=== PATIENT | female | born 1985 | race Caucasian/White ===

== ENCOUNTER 2016-09-03 01:15 | Emergency (ER) | payer MEDICAID ==
[2016-09-03] MEDS ORDERED: KETOROLAC 60 MG/2 ML VIAL IVP STA (04:10)
[2016-09-03] MEDS ORDERED: ONDANSETRON 4 MG/2 ML VIAL IVP STA (04:10)
[2016-09-03] MEDS ORDERED: SODIUM CHLORIDE 0.9% 500 ML IV STA (04:10)
[2016-09-03] MEDS ORDERED: HYDROmorphone 1 MG/ML SYRINGE IVP STA ×2 (04:10→04:51)
[2016-09-03] MEDS ORDERED: HYDROmorphone 1 MG/ML SYRINGE ONE ×2 (04:17→04:52)
[2016-09-03] MEDS ORDERED: KETOROLAC 30 MG/ML VIAL ONE (04:17)
[2016-09-03] MEDS ORDERED: ONDANSETRON 4 MG/2 ML VIAL ONE (04:18)
[2016-09-03] MEDS ORDERED: SODIUM CHLORIDE 0.9% 1,000 ML IV ONE (04:18)
== END 2016-09-03 06:25 | disposition home or self-care (01) ==
DX: R51 Headache (principal); Z87.891 Personal history of nicotine dependence
CPT/HCPCS: 36415; 80048; 85025; 96361; 96374; 96375; 99284; 99285; J1170

== ENCOUNTER 2016-09-06 20:58 | Emergency (ER) | payer MEDICAID ==
[2016-09-06] MEDS ORDERED: HYDROmorphone 1 MG/ML SYRINGE IVP STA ×3 (21:55→23:09)
[2016-09-06] MEDS ORDERED: ONDANSETRON 4 MG/2 ML VIAL IVP STA ×2 (21:55→23:09)
[2016-09-06] MEDS ORDERED: SODIUM CHLORIDE 0.9% 1,000 ML IV ONE ×3 (21:56→23:14)
[2016-09-06] MEDS ORDERED: KETOROLAC 30 MG/ML VIAL IVP STA (21:56)
[2016-09-06] MEDS ORDERED: LORazepam 2 MG/ML SYRINGE IVP STA ×2 (21:56→23:09)
[2016-09-06] MEDS ORDERED: HYDROmorphone 1 MG/ML SYRINGE ONE ×2 (22:09→23:13)
[2016-09-06] MEDS ORDERED: KETOROLAC 30 MG/ML VIAL ONE (22:09)
[2016-09-06] MEDS ORDERED: ONDANSETRON 4 MG/2 ML VIAL ONE ×3 (22:10→23:14)
[2016-09-06] MEDS ORDERED: LORazepam 2 MG/ML SYRINGE ONE ×2 (22:10→23:14)
== END 2016-09-07 01:05 | disposition home or self-care (01) ==
DX: G43.901 Migraine, unspecified, not intractable, with status migrainosus (principal); Z87.891 Personal history of nicotine dependence
CPT/HCPCS: 96361; 96374; 96375; 96376; 99284; J1170; J2060

== ENCOUNTER 2016-10-20 10:42 | Outpatient (CLI) | payer MEDICAID | END 2016-10-20 10:43 | disposition home or self-care (01) | DX: K86.1 Other chronic pancreatitis (principal); R35.0 Frequency of micturition ==

== ENCOUNTER 2016-11-13 21:10 | Emergency (ER) | payer MEDICAID ==
[2016-11-13] MEDS ORDERED: ONDANSETRON 4 MG/2 ML VIAL IVP STA (23:36)
[2016-11-13] MEDS ORDERED: HYDROmorphone 1 MG/ML SYRINGE IVP STA (23:36)
[2016-11-13] MEDS ORDERED: KETOROLAC 60 MG/2 ML VIAL IVP STA (23:36)
[2016-11-13] MEDS ORDERED: SODIUM CHLORIDE 0.9% 500 ML IV STA (23:36)
[2016-11-13] MEDS ORDERED: KETOROLAC 30 MG/ML VIAL ONE (23:57)
[2016-11-13] MEDS ORDERED: ONDANSETRON 4 MG/2 ML VIAL ONE (23:57)
[2016-11-13] MEDS ORDERED: HYDROmorphone 1 MG/ML SYRINGE ONE (23:57)
== END 2016-11-14 02:38 | disposition home or self-care (01) ==
DX: R51 Headache (principal); Z87.891 Personal history of nicotine dependence
CPT/HCPCS: 96361; 96374; 96375; 99284; J1170

== ENCOUNTER 2017-03-11 22:47 | Emergency (ER) | payer MEDICAID ==
--- NOTE | 2017-03-12 00:18 | ED Physician Documentation ---
PD HPI HEADACHE - Stated complaint Stated Complaint: MADSEN - Chief complaint Chief Complaint: Neuro - History obtained from History obtained from: Patient - History of Present Illness Timing - onset: Today (tonight) Timing - details: Gradual onset Pain level now: 10 Worst headache ever?: No: Worst headache ever? Location: Global Quality: Throbbing Associated symptoms: Nausea, Vomiting. No: Fever, Stiff neck, Weakness, Numbness Improved by: Dark room Worsened by: Light Similar symptoms before: Diagnosis (migraine MADSEN) - Additional information Additional information: c/o headache c/w previous migraine headaches, onset this evening. Patient has care plan with suggested medications and IV fluids Review of Systems Constitutional: denies: Fever, Chills, Sweats Eyes: reports: Photophobia Cardiac: reports: Reviewed and negative Respiratory: reports: Reviewed and negative GI: reports: Nausea, Vomiting. denies: Abdominal Pain Neurologic: reports: Headache. 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 : None HEENT: None Psych: Depression, Anxiety Musculoskeletal: Osteoarthritis, Fibromyalgia Derm: None - Past Surgical History Past Surgical History: Yes General: Appendectomy /HOTEL CONTROLLER: Other HEENT: Tonsil/Adenoidectomy - Present Medications Home Medications: Ambulatory Orders Medication Instructions Recorded Confirmed Ondansetron Odt [Zofran] 4 mg TL Q6H PRN #10 tablet 11/11/15 04/18/16 Bromelain 02/09/16 Cholecalciferol [Vitamin D3] 5,000 unit PO DAILY 02/09/16 02/09/16 Magnesium Citrate 296 ml PO 02/09/16 Morphine Sulfate 15 mg PO Q4HR PRN 02/09/16 04/18/16 Pregabalin [Lyrica] 100 mg PO 02/09/16 Quercetin 02/09/16 Senna Faxon Extract [Senna] 176 mg PO 02/09/16 Epinephrine [Epipen 2-Olayinka] 0.3 mg IJ ONCE #2 units 04/18/16 Dextroamphetamine/Amphetamine 10 mg PO DAILY 07/31/16 07/31/16 [Adderall 10 mg Tablet] Fluticasone [Flonase] 1 sprays REYNALDO BID PRN #1 bottle 07/31/16 Temazepam [Restoril] 1 tab PO DAILY 07/31/16 07/31/16 oxyCODONE [Roxicodone] 1 tab PO .FREQ 07/31/16 07/31/16 - Allergies Allergies/Adverse Reactions: Allergies Allergy/AdvReac Type Severity Reaction Status Date / Time dihydroergotamine Allergy Severe Respiratory Verified 09/03/16 01:29 divalproex sodium Allergy Severe anaphylaxis Verified 09/03/16 01:29 [From Depakote] frovatriptan [Frovatriptan] Allergy Severe anaphylaxis Verified 09/03/16 01:29 metoclopramide HCl * Allergy Severe HTN Verified 09/03/16 01:29 [From Reglan] naratriptan HCl * Allergy Severe anaphylaxis Verified 09/03/16 01:29 [From Amerge] prochlorperazine edisylate * Allergy Severe HTN Verified 09/03/16 01:29 [From Compazine] prochlorperazine maleate * Allergy Severe HTN Verified 09/03/16 01:29 [From Compazine] promethazine HCl * Allergy Severe HTN Verified 09/03/16 01:29 [From Phenergan] rizatriptan benzoate * Allergy Severe anaphylaxis Verified 09/03/16 01:29 [From Maxalt] sumatriptan [From Imitrex] Allergy Severe anaphylaxis Verified 09/03/16 01:29 sumatriptan succinate * Allergy Severe anaphylaxis Verified 09/03/16 01:29 [From Imitrex] vancomycin Allergy Severe nicolette Verified 09/03/16 01:29 syndrome doxycycline Allergy Unknown Unknown Verified 09/03/16 01:29 Antihistamines - Alkylamine AdvReac Severe severe Verified 09/03/16 01:29 anxiety, wheezing, dizziness prednisone AdvReac Severe Hallucinati Verified 09/03/16 01:29 ons diphenhydramine HCl * AdvReac Unknown Unknown Verified 09/03/16 01:29 [From Benadryl] ketorolac AdvReac Unknown Verified 09/03/16 01:29 pentosan polysulfate sodium AdvReac Unknown Verified 09/03/16 01:29 [From Elmiron] - Social History Does the pt smoke?: Yes Smoking Status: Former smoker Does the pt drink ETOH?: No Does the pt have substance abuse?: No - Immunizations Immunizations are current?: Yes - POLST Patient has POLST: No PD ED PE NORMAL - Vitals Vital signs reviewed: Yes - General General: Alert and oriented X 3, Well developed/nourished, Other (appears uncomfortable) - Neck Neck: Supple, no meningeal sign - Cardiac Cardiac: RRR, No murmur - Respiratory Respiratory: No respiratory distress, Clear bilaterally - Abdomen Abdomen: Soft, Non tender - Derm Derm: Normal color, Warm and dry - Neuro Neuro: Alert and oriented X 3, 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 laboratory 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, No motor deficit, No sensory deficit, Normal speech Results - Vitals Vitals: Vital Signs - 24 hr 03/11/17 03/12/17 03/12/17 22:51 00:39 01:51 Temperature 36.2 C L 36.7 C Heart Rate 114 H 74 76 Respiratory 18 20 20 Rate Blood Pressure 122/82 H 105/64 111/68 O2 Saturation 98 100 100 03/12/17 02:03 Temperature Heart Rate 82 Respiratory 18 Rate Blood Pressure 111/68 O2 Saturation 100 Oxygen O2 Source Room air PD MEDICAL DECISION MAKING - ED course Complexity details: reviewed old records, reviewed results, re-evaluated patient , considered differential, d/w patient ED course: I followed the care plan (patient has a copy that she provided to me), IV fluids , zofran, dilaudid, toradol, oxygen. She was given 1mg IV dilaudid and then a second dose. Patient appeared comfortable on reevaluation and she is comfortable with d/c home. Departure - Departure Disposition: 01 Home, Self Care Clinical Impression: Migraine Condition: Good Instructions: ED Headache Migraine Follow-Up: Kyle Pool MD [Primary Care Provider] - Discharge Date/Time: 03/12/17 02:08
[2017-03-12] MEDS ORDERED: ONDANSETRON 4 MG/2 ML VIAL IVP STA (00:30)
[2017-03-12] MEDS ORDERED: HYDROmorphone 1 MG/ML SYRINGE IVP STA ×2 (00:30→01:09)
[2017-03-12] MEDS ORDERED: KETOROLAC 60 MG/2 ML VIAL IVP STA (00:30)
[2017-03-12] MEDS ORDERED: SODIUM CHLORIDE 0.9% 500 ML IV STA (00:30)
[2017-03-12] MEDS ORDERED: HYDROmorphone 1 MG/ML SYRINGE ONE ×2 (00:35→01:10)
[2017-03-12] MEDS ORDERED: KETOROLAC 30 MG/ML VIAL ONE (00:35)
[2017-03-12] MEDS ORDERED: ONDANSETRON 4 MG/2 ML VIAL ONE (00:36)
[2017-03-12 01:51] VITALS: BP 111/68
== END 2017-03-12 02:08 | disposition home or self-care (01) ==
LOC: ED 22:47
DX: G43.909 Migraine, unspecified, not intractable, without status migrainosus (principal); H53.149 Visual discomfort, unspecified; Z87.891 Personal history of nicotine dependence
CPT/HCPCS: 96374; 96375; 96376; 99283; 99284; J1170

== ENCOUNTER 2017-03-26 17:30 | Emergency (ER) | payer MEDICAID ==
[2017-03-26] MEDS ORDERED: SODIUM CHLORIDE 0.9% 1,000 ML IV ONE (19:40)
[2017-03-26] MEDS ORDERED: ONDANSETRON 4 MG/2 ML VIAL IVP STA (19:40)
[2017-03-26] MEDS ORDERED: HYDROmorphone 1 MG/ML SYRINGE IVP STA ×4 (19:40→22:32)
--- NOTE | 2017-03-26 19:51 | ED Physician Documentation ---
History of Present Illness - Stated complaint Stated Complaint: ABD,BACK,NECK PAIN - Chief complaint Chief Complaint: General - History obtained from History obtained from: Patient - History of Present Illness Timing: Other (31-year-old woman with multiple medical problems, many of them psychosomatic. She presents with multiple complaints including diarrhea for 4 weeks. She had been camping prior to this but did not drink any water from natural sources. She had intermittent upper abdominal pain with this, she was seen at [facility] a couple of weeks ago, she has a history of pancreatitis and was checked for this but was reportedly negative. The pain came back yesterday she has upper abdominal pain radiating to the back, feels like prior pancreatitis. Yesterday she also developed a fever and headache. She has chronic migraines but this is different, it is a global headache as opposed to being behind the right eye. And it is associated with neck stiffness. She does have a history of meningitis as well.) Review of Systems Ten Systems: 10 systems reviewed and negative Constitutional: reports: Fever, Chills, Fatigue Nose: denies: Rhinorrhea / runny nose, Congestion Cardiac: denies: Chest pain / pressure, Palpitations Respiratory: denies: Dyspnea, Cough GI: reports: Abdominal Pain, Nausea, Diarrhea. 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 : None HEENT: None Psych: Depression, Anxiety Musculoskeletal: Osteoarthritis, Fibromyalgia Derm: None - Past Surgical History Past Surgical History: Yes General: Appendectomy /REDUCTION FURNACE OPERATOR: Other HEENT: Tonsil/Adenoidectomy - Present Medications Home Medications: Ambulatory Orders Medication Instructions Recorded Confirmed Ondansetron Odt [Zofran] 4 mg TL Q6H PRN #10 tablet 11/11/15 04/18/16 Cholecalciferol [Vitamin D3] 5,000 unit PO DAILY 02/09/16 02/09/16 Pregabalin [Lyrica] 100 mg PO 02/09/16 Quercetin 02/09/16 Epinephrine [Epipen 2-Olayinka] 0.3 mg IJ ONCE #2 units 04/18/16 Dextroamphetamine/Amphetamine 10 mg PO DAILY 07/31/16 07/31/16 [Adderall 10 mg Tablet] Temazepam [Restoril] 1 tab PO DAILY 07/31/16 07/31/16 - Allergies Allergies/Adverse Reactions: Allergies Allergy/AdvReac Type Severity Reaction Status Date / Time dihydroergotamine Allergy Severe Respiratory Verified 03/26/17 17:47 divalproex sodium Allergy Severe anaphylaxis Verified 03/26/17 17:47 [From Depakote] frovatriptan [Frovatriptan] Allergy Severe anaphylaxis Verified 03/26/17 17:47 metoclopramide HCl * Allergy Severe HTN Verified 03/26/17 17:47 [From Reglan] naratriptan HCl * Allergy Severe anaphylaxis Verified 03/26/17 17:47 [From Amerge] prochlorperazine edisylate * Allergy Severe HTN Verified 03/26/17 17:47 [From Compazine] prochlorperazine maleate * Allergy Severe HTN Verified 03/26/17 17:47 [From Compazine] promethazine HCl * Allergy Severe HTN Verified 03/26/17 17:47 [From Phenergan] rizatriptan benzoate * Allergy Severe anaphylaxis Verified 03/26/17 17:47 [From Maxalt] sumatriptan [From Imitrex] Allergy Severe anaphylaxis Verified 03/26/17 17:47 sumatriptan succinate * Allergy Severe anaphylaxis Verified 03/26/17 17:47 [From Imitrex] vancomycin Allergy Severe nicolette Verified 03/26/17 17:47 syndrome doxycycline Allergy Unknown Unknown Verified 03/26/17 17:47 Antihistamines - Alkylamine AdvReac Severe severe Verified 03/26/17 17:47 anxiety, wheezing, dizziness prednisone AdvReac Severe Hallucinati Verified 03/26/17 17:47 ons diphenhydramine HCl * AdvReac Unknown Unknown Verified 03/26/17 17:47 [From Benadryl] ketorolac AdvReac Unknown Verified 03/26/17 17:47 pentosan polysulfate sodium AdvReac Unknown Verified 03/26/17 17:47 [From Elmiron] tape Allergy Hives Uncoded 03/26/17 17:47 - Social History Does the pt smoke?: Yes Smoking Status: Former smoker Does the pt drink ETOH?: No Does the pt have substance abuse?: No - Immunizations Immunizations are current?: Yes - POLST Patient has POLST: No PD ED PE NORMAL - Vitals Vital signs reviewed: Yes - General General: Alert and oriented X 3, No acute distress - HEENT HEENT: PERRL, Other (Photophobic) - Neck Neck: No bony TTP, Other (She does have neck stiffness, as much with rotation is with flexion and/or extension.) - Cardiac Cardiac: RRR, No murmur - Respiratory Respiratory: No respiratory distress, Clear bilaterally - Abdomen Abdomen: Soft, Other (Mild upper abdominal tenderness from which she is distractible) - Back Back: No CVA TTP, No spinal TTP - Derm Derm: Normal color, Warm and dry - Extremities Extremities: No edema, No calf tenderness / cord - Neuro Neuro: Alert and oriented X 3, Normal speech - Psych Psych: Normal mood, Normal affect Results - Vitals Vitals: Vital Signs - 24 hr 03/26/17 03/26/17 03/26/17 17:40 19:18 21:12 Temperature 37.5 C 37.2 C 37.0 C Heart Rate 112 H 78 Respiratory 22 18 Rate Blood Pressure 107/77 125/75 O2 Saturation 96 98 Oxygen O2 Source Room air - Labs Labs: Microbiology 03/26/17 21:08 CSF Culture - Preliminary Cerebral Spinal Fluid 03/26/17 19:37 Clostridium difficile (PCR) - Final Stool 03/26/17 19:37 Campylobacter Antigen Assay - Final Stool Laboratory Tests 03/26/17 03/26/17 03/26/17 19:37 20:29 20:29 WBC 2.9 L RBC 4.52 Hgb 13.7 Hct 39.5 MCV 87.4 MCH 30.3 MCHC 34.7 RDW 12.6 Plt Count 129 L MPV 9.1 Neut # Not Reportable Lymph # Not Reportable [place] # Not Reportable Eos # Not Reportable Baso # Not Reportable Absolute Nucleated RBC Not Reportable Total Counted 100 Band Neuts % (Manual) 0 Neutrophils # (Manual) 1.0 L Lymphocytes # (Manual) 1.6 Monocytes # (Manual) 0.3 Nucleated RBCs Not Reportable Differential Comment MANUAL DIFFERENTIAL Manual Slide Review Indicated Platelet Estimate DECREASED (<130,000) Platelet Morphology NORMAL APPEARANCE RBC Morph Micro Appear NORMAL APPEARANCE Sodium 137 Potassium 3.7 Chloride 105 Carbon Dioxide 23 Anion Gap 9.0 BUN 11 Creatinine 0.7 Estimated GFR (MDRD) 99 Glucose 92 Calcium 8.4 L Total Bilirubin 0.9 AST 24 ALT 13 Alkaline Phosphatase 39 L Total Protein 7.0 Albumin 4.1 Globulin 2.9 Albumin/Globulin Ratio 1.4 Lipase 30 Urine Color YELLOW Urine Clarity CLEAR Urine pH 6.0 Ur Specific [place] 1.015 Urine Protein NEGATIVE Urine Glucose (UA) NEGATIVE Urine Ketones NEGATIVE Urine Occult Blood NEGATIVE Urine Nitrite NEGATIVE Urine Bilirubin NEGATIVE Urine Urobilinogen 1 (NORMAL) Ur Leukocyte Esterase NEGATIVE Ur Microscopic Review NOT INDICATED Urine Culture Comments NOT INDICATED Urine HCG, Qual NEGATIVE CSF Color CSF Clarity Xanthrochromic CSF WBC CSF RBC CSF Cell Count Tube # CSF Glucose CSF Total Protein 03/26/17 21:08 WBC RBC Hgb Hct MCV MCH MCHC RDW Plt Count MPV Neut # Lymph # [place] # Eos # Baso # Absolute Nucleated RBC Total Counted Band Neuts % (Manual) Neutrophils # (Manual) Lymphocytes # (Manual) Monocytes # (Manual) Nucleated RBCs Differential Comment Manual Slide Review Platelet Estimate Platelet Morphology RBC Morph Micro Appear Sodium Potassium Chloride Carbon Dioxide Anion Gap BUN Creatinine Estimated GFR (MDRD) Glucose Calcium Total Bilirubin AST ALT Alkaline Phosphatase Total Protein Albumin Globulin Albumin/Globulin Ratio Lipase Urine Color Urine Clarity Urine pH Ur Specific [place] Urine Protein Urine Glucose (UA) Urine Ketones Urine Occult Blood Urine Nitrite Urine Bilirubin Urine Urobilinogen Ur Leukocyte Esterase Ur Microscopic Review Urine Culture Comments Urine HCG, Qual CSF Color COLORLESS CSF Clarity CLEAR Xanthrochromic A CSF WBC 1 CSF RBC 0 CSF Cell Count Tube # CSF TUBE# 3 CSF Glucose 56 CSF Total Protein 21 - Rads (name of study) CT A/P Radiology: EMP read contemporaneously (Normal) Procedures - Lumbar Puncture Position: Sitting Location: L3-L4 Anesthesia: Local lidocaine CSF: Clear Other: Sterile prep and drape, Patient tolerated well, No complications PD MEDICAL DECISION MAKING - ED course ED course: 31-year-old woman presents with basically 2 complaints, left upper abdominal pain with concern for pancreatitis and ongoing diarrhea, and also a headache that is atypical for her migraines and associated with a fever yesterday and now neck stiffness. LP was pursued which was technically easily done and she tolerated very well. There was no evidence of meningitis. Abdominal workup was negative. Departure - Departure Disposition: 01 Home, Self Care Clinical Impression: Headache, Abdominal pain Leukopenia Qualifiers: Leukopenia type: neutropenia Neutropenia type: unspecified Qualified Code(s): D70.9 - Neutropenia, unspecified Condition: Good Record reviewed to determine appropriate education?: Yes Instructions: Abdominal Pain, ED Cephalgia Unspecified Comments: Your white blood cell count is low, follow-up with your doctor, they may want to recheck this. As discussed I suspect it is from a viral infection that is causing all your symptoms. Return if worse.
[2017-03-26] MEDS ORDERED: HYDROmorphone 1 MG/ML SYRINGE ONE ×4 (19:52→22:52)
[2017-03-26] MEDS ORDERED: ONDANSETRON 4 MG/2 ML VIAL ONE (19:52)
[2017-03-26 20:00] LABS: BILIRUBIN,URINE NEGATIVE (NEGATIVE)
[2017-03-26 20:02] LABS: UA CHARGE (STRIP ONLY) YES; UR CULTURE IF IND NOT INDICATED
[2017-03-26 20:03] LABS: HCG UR QUAL NEGATIVE
[2017-03-26] MEDS ORDERED: SODIUM CHLORIDE FLUSH 0.9% 10 ML SYRINGE IVP ONE (20:24)
[2017-03-26] MEDS ORDERED: LORazepam 2 MG/ML SYRINGE IVP STA (20:46)
[2017-03-26 20:49] LABS: BASOPHILS % (AUTO) 0.6 %; EOSINOPHILS % (AUTO) 0.6 %; HCT - HEMATOCRIT 39.5 % (37.0-47.0); HGB - HEMOGLOBIN 13.7 g/dL (12.0-16.0); LYMPHOCYTES % (AUTO) 43.2 %; MEAN CORPUSCULAR HEMOGLOBIN 30.3 pg (27.0-31.0); MEAN CORPUSCULAR HGB CONC 34.7 g/dL (32.0-36.0); MEAN CORPUSCULAR VOLUME 87.4 fL (81.0-99.0); MEAN PLATELET VOLUME 9.1 fL (7.9-10.8); MONOCYTES % (AUTO) 10.7 %; NEUTROPHILS % (AUTO) 44.9 %; RED BLOOD COUNT 4.52 10^6/uL (4.20-5.40); RED CELL DISTRIBUTION WIDTH 12.6 % (12.0-15.0); UNCORRECTED WHITE BLOOD COUNT 2.9 x10^3/uL; WHITE BLOOD COUNT 2.9 x10^3/uL (4.8-10.8)
[2017-03-26 20:50] LABS: BAND NEUTROPHILS % (MANUAL) 0 %
[2017-03-26 20:51] LABS: ALBUMIN/GLOBULIN RATIO 1.4 (1.0-2.2); BILIRUBIN,TOTAL 0.9 mg/dL (0.2-1.0); CALCIUM 8.4 mg/dL (8.5-10.3); CREATININE 0.7 mg/dL (0.4-1.0); POTASSIUM 3.7 mmol/L (3.5-5.0)
[2017-03-26] MEDS ORDERED: LORazepam 2 MG/ML SYRINGE ONE (20:52)
[2017-03-26 21:15] LABS: LYMPHOCYTES % (MANUAL) 55 %; NEUTROPHILS % (MANUAL) 33 %; NP AUTO DIFFERENTIAL? YES; NP MAN DIFFERENTIAL? NO; PLATELET ESTIMATE, MANUAL DECREASED (<130,000) (NORMAL); PLATELET MORPHOLOGY NORMAL APPEARANCE (NORMAL); TOTAL CELLS COUNTED 100
[2017-03-26 21:34] LABS: CLARITY,CSF CLEAR (CLEAR); COLOR,CSF COLORLESS (COLORLESS); CSF XANTHOCHROMIA A (ABSENT); WHITE BLOOD CELL,CSF 1 /mm^3 (0-5)
[2017-03-26 21:35] LABS: CSF - GLUCOSE 56 mg/dL (45-70)
[2017-03-26] MEDS ORDERED: IOPAMIDOL-300 100 ML VIAL IVP ONE (21:45)
--- NOTE | 2017-03-26 22:02 | CT Preliminary Report ---
Exam: CT Abdomen/Pelvis W/ IMPRESSION: Unremarkable abdominal pelvic CT. [facility] SITE ID: [id number]
--- NOTE | 2017-03-26 22:05 | CT Report ---
EXAM: CT ABDOMEN AND PELVIS EXAM DATE: 03/26/2017 09:47 PM. CLINICAL HISTORY: Abdominal pain, diarrhea and fever COMPARISONS: None. TECHNIQUE: Routine helical CT imaging was performed through the abdomen and pelvis. IV contrast: 100 mL Isovue-300. Enteric contrast: No. Reconstructions: Coronal and sagittal. In accordance with CT protocol optimization, one or more of the following dose reduction techniques w ere utilized for this exam: automated exposure control, adjustment of mA and/or KV based on patient s ize, or use of iterative reconstructive technique. FINDINGS: Lung Bases: Unremarkable. Liver: Normal. No masses. Gallbladder/Bile Ducts: Unremarkable. Spleen: Normal. Pancreas: Normal. Adrenal Glands: Normal. Kidneys: Normal. No masses or hydronephrosis. Peritoneal Cavity/Bowel: Normal. No free fluid, free air or adenopathy. No masses or acute inflammato ry process. Status post appendectomy. Pelvic Organs: Normal. The bladder and visualized pelvic organs are within normal limits. Vasculature: No aneurysms or other significant abnormality. Bones: No significant abnormality. Other: None. IMPRESSION: Unremarkable abdominal pelvic CT. [facility] Referring Provider Line: [phone] SITE ID: [id number]
[2017-03-26] MEDS ORDERED: MECLIZINE 12.5 MG TABLET PO STA (22:40)
[2017-03-26] MEDS ORDERED: MECLIZINE 12.5 MG TABLET PO ONE ×2 (22:53→22:59)
[2017-03-26 23:19] VITALS: BP 100/61
== END 2017-03-26 23:31 | disposition home or self-care (01) ==
LOC: ED 17:30
DX: R10.30 Lower abdominal pain, unspecified (principal); R51 Headache; D70.9 Neutropenia, unspecified; Z87.891 Personal history of nicotine dependence
CPT/HCPCS: 36415; 62270; 74177; 80053; 81003; 81025; 82945; 83690; 84157; 85025; 87015; 87045; 87046; 87070; 87177; 87205; 87209; 87272; 87329; 87493; 89051; 96374; 96375; 96376; 99283; 99284; A9270; J1170; J2060; Q9967; 81001; 87086

== ENCOUNTER 2017-03-27 19:53 | Emergency (ER) | payer MEDICAID ==
[2017-03-27] MEDS ORDERED: LIDOCAINE PATCH 5% TOP ONE (22:44)
[2017-03-27] MEDS: LIDOCAINE PATCH 5% TOP STA (22:46)
[2017-03-27] MEDS: CAFFEINE CITRATE IV ONE (23:04)
[2017-03-27] MEDS: SODIUM CHLORIDE 0.9% IV ONE (23:04)
--- NOTE | 2017-03-27 23:37 | ED Physician Documentation ---
PD HPI BACK PAIN - Stated complaint Stated Complaint: BACK, LEG PAIN - Chief complaint Chief Complaint: Back Pain - History obtained from History obtained from: Patient, Family - History of Present Illness Timing - onset: Today Timing - details: Gradual onset, Still present Location: Lower Quality: Pain Associated symptoms: No: Fever, Weakness, Numbness, Incontinent of urine, Unable to urinate, Incontinent of stool Similar symptoms before: Work up / diagnostics Recently seen: Emergency Dept - Additional information Additional information: Patient is a 31 year old female with multiple co-morbidities who is presenting to the emergency department for back and leg pain. according to patient and previous notes patient had an lumbar puncture yesterday and today she had some pain in her back and down her legs. patient denied any neurological disfunction. Patient has an allergy to most medications and her lyrica isn't working. Review of Systems Constitutional: denies: Fever, Chills Ears: denies: Ear pain, Drainage/discharge Nose: denies: Rhinorrhea / runny nose, Congestion Throat: denies: Dental pain / toothache, Sore throat Cardiac: denies: Chest pain / pressure GI: denies: Nausea, Vomiting : denies: Dysuria, Frequency, Incontinent Skin: denies: Abrasion (s) Musculoskeletal: reports: Back pain, Extremity pain Neurologic: denies: Generalized weakness, Focal weakness, Numbness Psychiatric: reports: Anxiety PD PAST MEDICAL HISTORY - Past Medical History Cardiovascular: None Respiratory: None Neuro: Headache/migraine Endocrine/Autoimmune: None GI: None 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 : None HEENT: None Psych: Depression, Anxiety Musculoskeletal: Osteoarthritis, Fibromyalgia Derm: None - Past Surgical History Past Surgical History: Yes General: Appendectomy /VEHICLE BODY MAKER: Other HEENT: Tonsil/Adenoidectomy - Present Medications Home Medications: Ambulatory Orders Medication Instructions Recorded Confirmed Ondansetron Odt [Zofran] 4 mg TL Q6H PRN #10 tablet 11/11/15 04/18/16 Cholecalciferol [Vitamin D3] 5,000 unit PO DAILY 02/09/16 02/09/16 Pregabalin [Lyrica] 100 mg PO 02/09/16 Quercetin 02/09/16 Epinephrine [Epipen 2-Olayinka] 0.3 mg IJ ONCE #2 units 04/18/16 Dextroamphetamine/Amphetamine 10 mg PO DAILY 07/31/16 07/31/16 [Adderall 10 mg Tablet] Temazepam [Restoril] 1 tab PO DAILY 07/31/16 07/31/16 - Allergies Allergies/Adverse Reactions: Allergies Allergy/AdvReac Type Severity Reaction Status Date / Time dihydroergotamine Allergy Severe Respiratory Verified 03/26/17 17:47 divalproex sodium Allergy Severe anaphylaxis Verified 03/26/17 17:47 [From Depakote] frovatriptan [Frovatriptan] Allergy Severe anaphylaxis Verified 03/26/17 17:47 metoclopramide HCl * Allergy Severe HTN Verified 03/26/17 17:47 [From Reglan] naratriptan HCl * Allergy Severe anaphylaxis Verified 03/26/17 17:47 [From Amerge] prochlorperazine edisylate * Allergy Severe HTN Verified 03/26/17 17:47 [From Compazine] prochlorperazine maleate * Allergy Severe HTN Verified 03/26/17 17:47 [From Compazine] promethazine HCl * Allergy Severe HTN Verified 03/26/17 17:47 [From Phenergan] rizatriptan benzoate * Allergy Severe anaphylaxis Verified 03/26/17 17:47 [From Maxalt] sumatriptan [From Imitrex] Allergy Severe anaphylaxis Verified 03/26/17 17:47 sumatriptan succinate * Allergy Severe anaphylaxis Verified 03/26/17 17:47 [From Imitrex] vancomycin Allergy Severe nicolette Verified 03/26/17 17:47 syndrome doxycycline Allergy Unknown Unknown Verified 03/26/17 17:47 Antihistamines - Alkylamine AdvReac Severe severe Verified 03/26/17 17:47 anxiety, wheezing, dizziness prednisone AdvReac Severe Hallucinati Verified 03/26/17 17:47 ons diphenhydramine HCl * AdvReac Unknown Unknown Verified 03/26/17 17:47 [From Benadryl] ketorolac AdvReac Unknown Verified 03/26/17 17:47 pentosan polysulfate sodium AdvReac Unknown Verified 03/26/17 17:47 [From Elmiron] tape Allergy Hives Uncoded 03/26/17 17:47 - Social History Does the pt smoke?: Yes Smoking Status: Former smoker Does the pt drink ETOH?: No Does the pt have substance abuse?: No - Immunizations Immunizations are current?: Yes - POLST Patient has POLST: No PD ED PE NORMAL - Vitals Vital signs reviewed: Yes (within normal limits) - General General: Alert and oriented X 3, Well developed/nourished - HEENT HEENT: Atraumatic, PERRL - Neck Neck: Supple, no meningeal sign - Cardiac Cardiac: RRR, No murmur - Respiratory Respiratory: No respiratory distress - Abdomen Abdomen: Soft, Non tender, Non distended - Derm Derm: Warm and dry - Extremities Extremities: No deformity, No tenderness to palpate - Neuro Neuro: Alert and oriented X 3, No motor deficit, No sensory deficit, Other (no saddle parasthesia, full rom of lower extremities) PD ED PE EXPANDED - General General: Alert, Anxious - Back Back: Other (lp site no signs of surrounding infection, no tenderness around the area,) Results - Vitals Vitals: Vital Signs - 24 hr 03/27/17 20:05 Temperature 36.0 C L Heart Rate 98 Respiratory 16 Rate Blood Pressure 143/99 H O2 Saturation 99 Oxygen O2 Source Room air PD MEDICAL DECISION MAKING - ED course Complexity details: reviewed old records, reviewed results, re-evaluated patient , considered differential, d/w patient, d/w family ED course: Patient was seen and examined at bedside. IV access was gained and patient was treated with caffeine. Patient responded well to the therapy and her symptoms had resolved. patient had no signs of infection or neurological dsyfunction. Patient required no further work up and was medically clear for outpatient follow up. Departure - Departure Disposition: 01 Home, Self Care Clinical Impression: Lumbar puncture reaction Condition: Good Instructions: ED Headache Post Spinal Tap No Patc Follow-Up: Kyle Pool MD [Primary Care Provider] - Tomorrow Comments: Your symptoms are likely secondary to the lumbar puncture. the most important thing is for you to try to stay flat for the next 24 hours or so. If your symptoms return or worsen you may return to the emergency department at any time. You should return for fevers, chills, loss of neurological function, including walking, urinating or defecating.
[2017-03-27 23:50] VITALS: BP 130/61
== END 2017-03-27 23:49 | disposition home or self-care (01) ==
LOC: ED 19:53
DX: G97.1 Other reaction to spinal and lumbar puncture (principal); Y84.4 Aspiration of fluid as the cause of abnormal reaction of the patient, or of later complication, without mention of misadventure at the time of the procedure; M79.7 Fibromyalgia; M19.90 Unspecified osteoarthritis, unspecified site; Z87.891 Personal history of nicotine dependence
CPT/HCPCS: 96374; 99283; A9270; J0706

== ENCOUNTER 2017-03-28 23:57 | Emergency (ER) | payer MEDICAID ==
[2017-03-29] MEDS ORDERED: HYDROmorphone 1 MG/ML SYRINGE IVP STA ×3 (00:42→12:38)
[2017-03-29] MEDS ORDERED: ONDANSETRON 4 MG/2 ML VIAL IVP STA ×2 (00:42→06:44)
[2017-03-29] MEDS ORDERED: SODIUM CHLORIDE 0.9% 1,000 ML IV ONE ×2 (00:42→07:19)
[2017-03-29] MEDS ORDERED: KETOROLAC 60 MG/2 ML VIAL IVP STA ×2 (00:42→13:37)
[2017-03-29] MEDS ORDERED: KETOROLAC 30 MG/ML VIAL ONE ×2 (00:49→13:55)
[2017-03-29] MEDS ORDERED: HYDROmorphone 1 MG/ML SYRINGE ONE ×3 (00:49→12:50)
[2017-03-29] MEDS ORDERED: ONDANSETRON 4 MG/2 ML VIAL ONE ×2 (00:49→07:26)
[2017-03-29 06:18] LABS: BILIRUBIN,URINE NEGATIVE (NEGATIVE); PH,URINE 6.5 PH (5.0-7.5)
[2017-03-29 06:26] LABS: UA w/ MICROSCOPIC CHARGE YES
[2017-03-29 06:29] LABS: UR CULTURE IF IND INDICATED
[2017-03-29] MEDS ORDERED: LORazepam 2 MG/ML SYRINGE IVP PRN (06:44)
--- NOTE | 2017-03-29 06:47 | ED Physician Documentation ---
PD HPI HEADACHE - Stated complaint Stated Complaint: HEAD,BACK PX - Chief complaint Chief Complaint: Neuro - History obtained from History obtained from: Patient, Family - History of Present Illness Timing - onset: How many days ago (3) Timing - details: Gradual onset, Still present Location: Global Quality: Throbbing, Aching Associated symptoms: Nausea. No: Vomiting, Weakness Improved by: Dark room, Meds Worsened by: Moving Contributing factors: Other (LP) Similar symptoms before: Work up / diagnostics, Treatment, Follow up Recently seen: Emergency Dept - Additional information Additional information: Patient is a 31 year old female with multiple medical problems who is presenting to the emergency department for headache, numbness in her legs and new incontinence. patient has chronic severe headaches with a likely somatization component. patient was seen in the emergency department three days ago, at that time as part of her work up and LP was performed. patient came to the emergency department two days ago since she had a worsening headache. patient was treated with IV caffeine and fluids and responded well. patient states that she was feeling well but when she would get up her headache would return. patient also states that she has had new episodes of urinary incontinence and tingling in her legs. Review of Systems Constitutional: denies: Fever, Chills Eyes: reports: Photophobia Ears: denies: Loss of hearing, Ear pain Nose: denies: Rhinorrhea / runny nose, Congestion Throat: denies: Dental pain / toothache, Oral lesions / sores Cardiac: denies: Chest pain / pressure Respiratory: denies: Cough GI: reports: Nausea. denies: Vomiting, Constipation, Diarrhea : reports: Hesitancy, Incontinent Skin: denies: Rash Musculoskeletal: reports: Back pain, Extremity pain Neurologic: reports: Numbness, Headache. 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: Endometriosis : None HEENT: None Psych: Depression, Anxiety Musculoskeletal: Osteoarthritis, Fibromyalgia Derm: None - Past Surgical History Past Surgical History: Yes General: Appendectomy /FIRE OFFICIAL: Other HEENT: Tonsil/Adenoidectomy - Present Medications Home Medications: Ambulatory Orders Medication Instructions Recorded Confirmed Ondansetron Odt [Zofran] 4 mg TL Q6H PRN #10 tablet 11/11/15 04/18/16 Cholecalciferol [Vitamin D3] 5,000 unit PO DAILY 02/09/16 02/09/16 Pregabalin [Lyrica] 100 mg PO 02/09/16 Quercetin 02/09/16 Epinephrine [Epipen 2-Olayinka] 0.3 mg IJ ONCE #2 units 04/18/16 Dextroamphetamine/Amphetamine 10 mg PO DAILY 07/31/16 07/31/16 [Adderall 10 mg Tablet] Temazepam [Restoril] 1 tab PO DAILY 07/31/16 07/31/16 - Allergies Allergies/Adverse Reactions: Allergies Allergy/AdvReac Type Severity Reaction Status Date / Time dihydroergotamine Allergy Severe Respiratory Verified 03/26/17 17:47 divalproex sodium Allergy Severe anaphylaxis Verified 03/26/17 17:47 [From Depakote] frovatriptan [Frovatriptan] Allergy Severe anaphylaxis Verified 03/26/17 17:47 metoclopramide HCl * Allergy Severe HTN Verified 03/26/17 17:47 [From Reglan] naratriptan HCl * Allergy Severe anaphylaxis Verified 03/26/17 17:47 [From Amerge] prochlorperazine edisylate * Allergy Severe HTN Verified 03/26/17 17:47 [From Compazine] prochlorperazine maleate * Allergy Severe HTN Verified 03/26/17 17:47 [From Compazine] promethazine HCl * Allergy Severe HTN Verified 03/26/17 17:47 [From Phenergan] rizatriptan benzoate * Allergy Severe anaphylaxis Verified 03/26/17 17:47 [From Maxalt] sumatriptan [From Imitrex] Allergy Severe anaphylaxis Verified 03/26/17 17:47 sumatriptan succinate * Allergy Severe anaphylaxis Verified 03/26/17 17:47 [From Imitrex] vancomycin Allergy Severe nicolette Verified 03/26/17 17:47 syndrome doxycycline Allergy Unknown Unknown Verified 03/26/17 17:47 Antihistamines - Alkylamine AdvReac Severe severe Verified 03/26/17 17:47 anxiety, wheezing, dizziness prednisone AdvReac Severe Hallucinati Verified 03/26/17 17:47 ons diphenhydramine HCl * AdvReac Unknown Unknown Verified 03/26/17 17:47 [From Benadryl] ketorolac AdvReac Unknown Verified 03/26/17 17:47 pentosan polysulfate sodium AdvReac Unknown Verified 03/26/17 17:47 [From Elmiron] tape Allergy Hives Uncoded 03/26/17 17:47 - Social History Does the pt smoke?: Yes Smoking Status: Former smoker Does the pt drink ETOH?: No Does the pt have substance abuse?: No - Immunizations Immunizations are current?: Yes - POLST Patient has POLST: No PD ED PE NORMAL - HEENT HEENT: Atraumatic, Moist mucous membranes - Neck Neck: Supple, no meningeal sign - Cardiac Cardiac: RRR, No murmur - Respiratory Respiratory: No respiratory distress - Abdomen Abdomen: Soft, Non tender, Non distended - Derm Derm: Normal color, Warm and dry, No rash PD ED PE EXPANDED - General General: Alert, Anxious - HEENT HEENT: PERRL - Neuro Neuro: Alert and Oriented X 3, Normal motor, Normal Sensation, Abnormal sensation (subjective tingling in her legs but no loss of sensation), Normal gait. No: Nystagmus - Psych Psych: Tearful, Anxious Results - Vitals Vitals: Vital Signs - 24 hr 03/29/17 03/29/17 03/29/17 00:15 02:42 06:11 Temperature 37.5 C Heart Rate 85 68 91 Respiratory 18 14 16 Rate Blood Pressure 124/81 H 98/62 107/63 O2 Saturation 97 100 100 Oxygen O2 Source Room air Oxygen Flow Rate 2 - Labs Labs: Laboratory Tests 03/29/17 06:00 Urine Color YELLOW Urine Clarity CLEAR Urine pH 6.5 Ur Specific [place] 1.020 Urine Protein NEGATIVE Urine Glucose (UA) NEGATIVE Urine Ketones NEGATIVE Urine Occult Blood MODERATE H Urine Nitrite NEGATIVE Urine Bilirubin NEGATIVE Urine Urobilinogen 1 (NORMAL) Ur Leukocyte Esterase NEGATIVE Urine RBC 11-25 H Urine WBC 11-25 H Ur Squamous Epith Cells FEW Squamous Urine Bacteria Few Ur Microscopic Review INDICATED Urine Culture Comments INDICATED PD MEDICAL DECISION MAKING - ED course Complexity details: reviewed old records, reviewed results, re-evaluated patient , considered differential, d/w patient, d/w family, d/w sharepoint consultant ED course: Patient was seen and examined at bedside. IV access was gained. patient was treated with her headache cocktail, IV fluids, dilaudid, toradol and zofran. Patient had responded well to the therapy but whenever she moved her headache would return. Also due to the incontinence and MRI was ordered but would not be performed until the day time. anesthesia was contacted and they stated they could come evaluate the patient for a possible blood patch. Patient was signed over to the day team pending mri and possible blood patch. it was made aware to the patient and the family that the plan would be for the patient to go home , even if she had a headache if the MRI was negative. Departure - Departure Clinical Impression: Lumbar puncture reaction Condition: Stable Instructions: ED Headache Migraine Follow-Up: Kyle Pool MD [Primary Care Provider] - Comments: Your diagnostics today were within normal limits. there was no spinal cord damage. Your headache are likely multifactoral and it is important that you follow up with your neurologist within the next few days for further evaluation. You may return to the emergency department at any time if necessary for new, worsening or uncontrollable symptoms.
[2017-03-29] MEDS ORDERED: SODIUM CHLORIDE FLUSH 0.9% 10 ML SYRINGE IVP ONE ×4 (07:26→13:55)
[2017-03-29] MEDS ORDERED: LORazepam 2 MG/ML SYRINGE IVP STA (10:22)
[2017-03-29] MEDS ORDERED: LORazepam 2 MG/ML SYRINGE ONE (10:28)
--- NOTE | 2017-03-29 12:35 | MRI Preliminary Report ---
Exam: MRI Lumbar Spine W/O IMPRESSION: 1. No epidural hematoma. 2. No focal posterior disk protrusion is seen in the lumbar spine. 3. No central canal or foraminal stenosis is present in the lumbar spine Comment: The following findings are so common in adults without low back pain that while we report th eir presence, they must be interpreted with caution and in the context of the clinical situation. (Re ranjit Man et al, Spine 2001) Prevalence of findings in patients without low back pain: Disk degeneration (any evidence): 92% Disk desiccation/T2 signal loss: 83% Disk height loss: 56% Disk bulge: 64% Disk protrusion: 32% Annular tear/high intensity zone: 38% RADIA SITE ID: [id number]
--- NOTE | 2017-03-29 12:54 | MRI Report ---
EXAM: MRI LUMBAR SPINE WITHOUT CONTRAST EXAM DATE: 03/29/2017 12:13 p.m. CLINICAL HISTORY: Incontinence post LP. Severe pain. COMPARISON: CT lumbar spine 12/30/2013. TECHNIQUE: Multiplanar, multisequence T1-weighted and fluid-sensitive sequences of the lumbar spine f rom T12 to S1 without contrast. Other: None. FINDINGS: Numbering assumes 5 [id number] lumbar-type vertebral bodies. No suspicious marrow replacement is identified in the lumbar vertebral bodies. The distal tip of the conus medullaris is seen at the level of the L1 vertebral body. No abnormal signal is present in the conus medullaris. There is some motion artifact on the study. No epidural fluid collection is seen to suggest an epidural hematoma. No posterior disk protrusions are seen in the lumbar spine. There is no central canal or foraminal st enosis in the lumbar spine. Posterior bulging of the annulus is seen at T11-T12 and at T12-L1. Degenerative Schmorl's node format ion is seen in the endplates adjacent to the T11-T12 and T12-L1 disk spaces. IMPRESSION: 1. No epidural hematoma. 2. No focal posterior disk protrusion is seen in the lumbar spine. 3. No central canal or foraminal stenosis is present in the lumbar spine. Comment: The following findings are so common in adults without low back pain that while we report th eir presence, they must be interpreted with caution and in the context of the clinical situation. (Re ranjit Man et al, Spine 2001) Prevalence of findings in patients without low back pain: Disk degeneration (any evidence): 92% Disk desiccation/T2 signal loss: 83% Disk height loss: 56% Disk bulge: 64% Disk protrusion: 32% Annular tear/high intensity zone: 38% RADIA Referring Provider Line: [phone] SITE ID: [id number]
--- NOTE | 2017-03-29 13:35 | ED Physician Documentation ---
PD HPI HEADACHE - Stated complaint Stated Complaint: HEAD,BACK PX - Chief complaint Chief Complaint: Neuro - History obtained from History obtained from: Patient - History of Present Illness Timing - onset: Other (See Dr. Edwards's history and physical for initial workup. Briefly this is a 31-year-old woman who has a relatively complicated medical history, and a history of potentially psychosomatic complaints who had a technically easy 22-gauge lumbar puncture 2 days ago and now has persistent headache and back pain with some lower extremity neurologic symptoms necessitating MRI of the lumbar spine which was done and essentially unremarkable without evidence of fluid leak or epidural hematoma. I examined her, she is neurologically normal in the lower extremities. 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 : None HEENT: None Psych: Depression, Anxiety Musculoskeletal: Osteoarthritis, Fibromyalgia Derm: None - Past Surgical History Past Surgical History: Yes General: Appendectomy /FITNESS TECHNICIAN: Other HEENT: Tonsil/Adenoidectomy - Present Medications Home Medications: Ambulatory Orders Medication Instructions Recorded Confirmed Ondansetron Odt [Zofran] 4 mg TL Q6H PRN #10 tablet 11/11/15 04/18/16 Cholecalciferol [Vitamin D3] 5,000 unit PO DAILY 02/09/16 02/09/16 Pregabalin [Lyrica] 100 mg PO 02/09/16 Quercetin 02/09/16 Epinephrine [Epipen 2-Olayinka] 0.3 mg IJ ONCE #2 units 04/18/16 Dextroamphetamine/Amphetamine 10 mg PO DAILY 07/31/16 07/31/16 [Adderall 10 mg Tablet] Temazepam [Restoril] 1 tab PO DAILY 07/31/16 07/31/16 Ciprofloxacin [Cipro] 250 mg PO Q12H #6 tablet 03/29/17 Fluconazole [Diflucan] 150 mg PO ONCE PRN #2 tablet 03/29/17 Lorazepam [Ativan] 1 mg PO TID PRN #6 tablet 03/29/17 Oxycodone HCl 10 mg PO Q6HR PRN #10 tablet 03/29/17 - Allergies Allergies/Adverse Reactions: Allergies Allergy/AdvReac Type Severity Reaction Status Date / Time dihydroergotamine Allergy Severe Respiratory Verified 03/26/17 17:47 divalproex sodium Allergy Severe anaphylaxis Verified 03/26/17 17:47 [From Depakote] frovatriptan [Frovatriptan] Allergy Severe anaphylaxis Verified 03/26/17 17:47 metoclopramide HCl * Allergy Severe HTN Verified 03/26/17 17:47 [From Reglan] naratriptan HCl * Allergy Severe anaphylaxis Verified 03/26/17 17:47 [From Amerge] prochlorperazine edisylate * Allergy Severe HTN Verified 03/26/17 17:47 [From Compazine] prochlorperazine maleate * Allergy Severe HTN Verified 03/26/17 17:47 [From Compazine] promethazine HCl * Allergy Severe HTN Verified 03/26/17 17:47 [From Phenergan] rizatriptan benzoate * Allergy Severe anaphylaxis Verified 03/26/17 17:47 [From Maxalt] sumatriptan [From Imitrex] Allergy Severe anaphylaxis Verified 03/26/17 17:47 sumatriptan succinate * Allergy Severe anaphylaxis Verified 03/26/17 17:47 [From Imitrex] vancomycin Allergy Severe nicolette Verified 03/26/17 17:47 syndrome doxycycline Allergy Unknown Unknown Verified 03/26/17 17:47 Antihistamines - Alkylamine AdvReac Severe severe Verified 03/26/17 17:47 anxiety, wheezing, dizziness prednisone AdvReac Severe Hallucinati Verified 03/26/17 17:47 ons diphenhydramine HCl * AdvReac Unknown Unknown Verified 03/26/17 17:47 [From Benadryl] ketorolac AdvReac Unknown Verified 03/26/17 17:47 pentosan polysulfate sodium AdvReac Unknown Verified 03/26/17 17:47 [From Elmiron] tape Allergy Hives Uncoded 03/26/17 17:47 - Social History Does the pt smoke?: Yes Smoking Status: Former smoker Does the pt drink ETOH?: No Does the pt have substance abuse?: No - Immunizations Immunizations are current?: Yes - POLST Patient has POLST: No Results - Vitals Vitals: Vital Signs - 24 hr 03/29/17 03/29/17 03/29/17 00:15 02:42 06:11 Temperature 37.5 C Heart Rate 85 68 91 Respiratory 18 14 16 Rate Blood Pressure 124/81 H 98/62 107/63 O2 Saturation 97 100 100 03/29/17 03/29/17 07:19 10:20 Temperature Heart Rate 72 80 Respiratory 14 20 Rate Blood Pressure 107/66 110/70 O2 Saturation 100 100 Oxygen O2 Source Room air Oxygen Flow Rate 2 - Labs Labs: Laboratory Tests 03/29/17 06:00 Urine Color YELLOW Urine Clarity CLEAR Urine pH 6.5 Ur Specific [place] 1.020 Urine Protein NEGATIVE Urine Glucose (UA) NEGATIVE Urine Ketones NEGATIVE Urine Occult Blood MODERATE H Urine Nitrite NEGATIVE Urine Bilirubin NEGATIVE Urine Urobilinogen 1 (NORMAL) Ur Leukocyte Esterase NEGATIVE Urine RBC 11-25 H Urine WBC 11-25 H Ur Squamous Epith Cells FEW Squamous Urine Bacteria Few Ur Microscopic Review INDICATED Urine Culture Comments INDICATED PD MEDICAL DECISION MAKING - ED course Complexity details: reviewed results (Does have evidence of UTI, will be treated with 3 days of Cipro.), re-evaluated patient Departure - Departure Disposition: 01 Home, Self Care Clinical Impression: Lumbar puncture reaction, Headache, Cystitis Back pain Qualifiers: Back pain location: low back pain Chronicity: acute Back pain laterality: midline Sciatica presence: without sciatica Qualified Code(s): M54.5 - Low back pain Condition: Stable Instructions: ED Headache Migraine Follow-Up: Kyle Pool MD [Primary Care Provider] - Prescriptions: Oxycodone HCl 10 mg PO Q6HR PRN #10 tablet PRN Reason: Pain Lorazepam [Ativan] 1 mg PO TID PRN #6 tablet PRN Reason: Spasms Ciprofloxacin [Cipro] 250 mg PO Q12H #6 tablet Fluconazole [Diflucan] 150 mg PO ONCE PRN #2 tablet PRN Reason: yeast infection Comments: Your diagnostics today were within normal limits. there was no spinal cord damage. Your headache are likely multifactoral and it is important that you follow up with your neurologist within the next few days for further evaluation. You may return to the emergency department at any time if necessary for new, worsening or uncontrollable symptoms.
[2017-03-29 14:03] VITALS: BP 116/72
--- NOTE | 2017-03-29 15:02 | ED Physician Documentation ---
ED Addendum - Addendum Addendum: 03/29/17 15:02 Note to HIM: Please copy today's visit to Dr. Nils Park, a neurologist in [place]. Thank you
== END 2017-03-29 14:09 | disposition home or self-care (01) ==
LOC: ED 23:57
DX: G97.1 Other reaction to spinal and lumbar puncture (principal); N30.90 Cystitis, unspecified without hematuria; M54.5 Low back pain; M79.7 Fibromyalgia; F41.9 Anxiety disorder, unspecified
CPT/HCPCS: 72148; 81001; 87086; 96361; 96374; 96375; 96376; 99284; J1170; J2060; 81003

== ENCOUNTER 2017-04-29 09:20 | Emergency (ER) | payer MEDICAID ==
[2017-04-29] MEDS ORDERED: SODIUM CHLORIDE 0.9% 1,000 ML IV ONE (10:25)
[2017-04-29] MEDS ORDERED: HYDROmorphone 1 MG/ML SYRINGE IVP STA ×2 (10:25→11:02)
[2017-04-29] MEDS ORDERED: ONDANSETRON 4 MG/2 ML VIAL IVP STA (10:25)
[2017-04-29] MEDS ORDERED: KETOROLAC 60 MG/2 ML VIAL IVP STA (10:25)
--- NOTE | 2017-04-29 10:28 | ED Physician Documentation ---
PD HPI HEADACHE - Stated complaint Stated Complaint: MIGRAINE - Chief complaint Chief Complaint: Neuro - History obtained from History obtained from: Patient, Family - History of Present Illness Timing - onset: How many days ago (4) Timing - onset during: Rest Timing - duration: Days (4) Timing - details: Gradual onset, Still present Worst headache ever?: No: Worst headache ever? Location: Front, Right, Left Quality: Throbbing, Aching Associated symptoms: Nausea, Vomiting, Eye pain. No: Fever, Stiff neck, Weakness, Numbness, Syncope, Seizure Improved by: Rest, Dark room, Quiet, Meds Worsened by: Light, Noise, Moving Contributing factors: No: Anticoagulated Similar symptoms before: Diagnosis (migraine) Recently seen: Emergency Dept (last month for migriane and for back pain.) - Additional information Additional information: 32-year-old female with ADHD on amphetamine has developed another migraine headache. She brings in with her a care plan from her neurologist recommending no more than once a month treatment in the emergency department with intravenous medications for migraine headache. He recommends a combination of Dilaudid Zofran Toradol and saline. The patient has a number of allergies to different medications including Benadryl and Toradol. She states that she has had on one occasion blistering with Toradol but this is not consistent. Review of Systems Constitutional: denies: Fever Eyes: reports: Photophobia. denies: Decreased vision Ears: denies: Ear pain Nose: reports: Congestion. denies: Rhinorrhea / runny nose Throat: denies: Sore throat Cardiac: denies: Chest pain / pressure, Palpitations Respiratory: denies: Dyspnea, Cough GI: reports: Nausea, Vomiting. denies: Abdominal Pain : denies: Dysuria, Frequency Skin: denies: Rash Musculoskeletal: reports: Neck pain, Back pain Neurologic: reports: Confused, Headache. 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 : None HEENT: None Psych: Depression, Anxiety Musculoskeletal: Osteoarthritis, Fibromyalgia Derm: None - Past Surgical History Past Surgical History: Yes General: Appendectomy /SPECIAL EFFECTS DESIGNER: Other HEENT: Tonsil/Adenoidectomy - Present Medications Home Medications: Ambulatory Orders Medication Instructions Recorded Confirmed Ondansetron Odt [Zofran] 4 mg TL Q6H PRN #10 tablet 11/11/15 04/29/17 Cholecalciferol [Vitamin D3] 5,000 unit PO DAILY 02/09/16 04/29/17 Pregabalin [Lyrica] 100 mg PO BID 02/09/16 04/29/17 Quercetin 02/09/16 Epinephrine [Epipen 2-Olayinka] 0.3 mg IJ ONCE #2 units 04/18/16 04/29/17 Dextroamphetamine/Amphetamine 10 mg PO DAILY 07/31/16 07/31/16 [Adderall 10 mg Tablet] Temazepam [Restoril] 1 tab PO DAILY 07/31/16 04/29/17 - Allergies Allergies/Adverse Reactions: Allergies Allergy/AdvReac Type Severity Reaction Status Date / Time dihydroergotamine Allergy Severe Respiratory Verified 04/29/17 09:26 divalproex sodium Allergy Severe anaphylaxis Verified 04/29/17 09:26 [From Depakote] frovatriptan [Frovatriptan] Allergy Severe anaphylaxis Verified 04/29/17 09:26 metoclopramide HCl * Allergy Severe HTN Verified 04/29/17 09:26 [From Reglan] naratriptan HCl * Allergy Severe anaphylaxis Verified 04/29/17 09:26 [From Amerge] prochlorperazine edisylate * Allergy Severe HTN Verified 04/29/17 09:26 [From Compazine] prochlorperazine maleate * Allergy Severe HTN Verified 04/29/17 09:26 [From Compazine] promethazine HCl * Allergy Severe HTN Verified 04/29/17 09:26 [From Phenergan] rizatriptan benzoate * Allergy Severe anaphylaxis Verified 04/29/17 09:26 [From Maxalt] sumatriptan [From Imitrex] Allergy Severe anaphylaxis Verified 04/29/17 09:26 sumatriptan succinate * Allergy Severe anaphylaxis Verified 04/29/17 09:26 [From Imitrex] vancomycin Allergy Severe nicolette Verified 04/29/17 09:26 syndrome doxycycline Allergy Unknown Unknown Verified 04/29/17 09:26 Antihistamines - Alkylamine AdvReac Severe severe Verified 04/29/17 09:26 anxiety, wheezing, dizziness prednisone AdvReac Severe Hallucinati Verified 04/29/17 09:26 ons diphenhydramine HCl * AdvReac Unknown Unknown Verified 04/29/17 09:26 [From Benadryl] ketorolac AdvReac Unknown Verified 04/29/17 09:26 pentosan polysulfate sodium AdvReac Unknown Verified 04/29/17 09:26 [From Elmiron] tape Allergy Hives Uncoded 04/29/17 09:26 - Social History Does the pt smoke?: Yes Smoking Status: Former smoker Does the pt drink ETOH?: No Does the pt have substance abuse?: No - Immunizations Immunizations are current?: Yes - POLST Patient has POLST: No PD ED PE NORMAL - Vitals Vital signs reviewed: Yes (Normal) - General General: No acute distress, Well developed/nourished, Other (32-year-old female in a darkened room with darkened glasses on is conversant and has missing portions of her history she has a young daughter who fills in history for her. Her does show up for the visit as well and provides additional information.) - HEENT HEENT: Atraumatic, PERRL, EOMI, Ears normal, Other (Photophobia is present) - Neck Neck: Supple, no meningeal sign, No bony TTP, Other (There is no tenderness at the insertion to the occiput of the trapezius.) - Cardiac Cardiac: RRR, No murmur - Respiratory Respiratory: No respiratory distress, Clear bilaterally - Abdomen Abdomen: Soft, Non tender - Derm Derm: Normal color, Warm and dry, No rash - Extremities Extremities: No deformity, No edema - Neuro Neuro: No motor deficit, No sensory deficit - Psych Psych: Normal mood, Normal affect Results - Vitals Vitals: Vital Signs - 24 hr 04/29/17 09:22 Temperature 36.5 C Heart Rate 86 Respiratory 16 Rate Blood Pressure 108/77 O2 Saturation 98 Oxygen O2 Source Room air PD MEDICAL DECISION MAKING - ED course Complexity details: reviewed old records, re-evaluated patient, considered differential, d/w patient, d/w family ED course: 32 y/o female with a 4 day history of migraine is given treatment according to a treatment plan provided by her neurologist. This includes IV saline, toradal, zofran and dilaudid as well as high flow oxygen. She has reflux symptoms and requires viscous lido and mylanta as well. Departure - Departure Disposition: 01 Home, Self Care Clinical Impression: Migraine Qualifiers: Migraine type: with aura Status migrainosus presence: without status migrainosus Intractability: not intractable Qualified Code(s): G43.109 - Migraine with aura, not intractable, without status migrainosus Condition: Stable Instructions: ED Headache Migraine Follow-Up: Kyle Pool MD [Primary Care Provider] -
[2017-04-29] MEDS ORDERED: SODIUM CHLORIDE FLUSH 0.9% 10 ML SYRINGE IVP ONE (10:32)
[2017-04-29] MEDS ORDERED: ONDANSETRON 4 MG/2 ML VIAL ONE (10:32)
[2017-04-29] MEDS ORDERED: HYDROmorphone 1 MG/ML SYRINGE ONE ×2 (10:32→11:08)
[2017-04-29] MEDS ORDERED: KETOROLAC 60 MG/2 ML VIAL ONE (10:32)
[2017-04-29] MEDS ORDERED: MAG HYDROX/AL HYDROX/SIMETH 30 ML UDC PO STA (11:09)
[2017-04-29] MEDS ORDERED: LIDOCAINE VISCOUS 2% 15 ML UDC MM STA (11:09)
[2017-04-29] MEDS ORDERED: MAG HYDROX/AL HYDROX/SIMETH 30 ML UDC ONE (11:17)
[2017-04-29] MEDS ORDERED: LIDOCAINE VISCOUS 2% 15 ML UDC MM ONE (11:17)
[2017-04-29 11:32] VITALS: BP 112/70
== END 2017-04-29 11:45 | disposition home or self-care (01) ==
LOC: ED 09:20
DX: G43.109 Migraine with aura, not intractable, without status migrainosus (principal); M19.90 Unspecified osteoarthritis, unspecified site; M79.7 Fibromyalgia; Z87.891 Personal history of nicotine dependence
CPT/HCPCS: 96374; 96375; 96376; 99283; 99284; A9270; J1170

== ENCOUNTER 2017-05-24 21:24 | Emergency (ER) | payer MEDICAID ==
[2017-05-24] MEDS ORDERED: SODIUM CHLORIDE 0.9% 1,000 ML IV ONE (21:50)
[2017-05-24] MEDS ORDERED: KETOROLAC 60 MG/2 ML VIAL IVP STA (21:50)
[2017-05-24] MEDS ORDERED: HYDROmorphone 1 MG/ML CARPUJECT IVP STA ×2 (21:50→22:53)
[2017-05-24] MEDS ORDERED: ONDANSETRON 4 MG/2 ML VIAL IVP STA (21:50)
--- NOTE | 2017-05-24 21:52 | ED Physician Documentation ---
PD HPI HEADACHE - Stated complaint Stated Complaint: MADSEN - Chief complaint Chief Complaint: Neuro - History obtained from History obtained from: Patient - History of Present Illness Timing - onset: Other (This is an unfortunate 32-year-old woman with multiple health issues including status migrainosus which worsened after her Botox injections a few days ago. She is a global headache that is worse when supine, but not associated with neck stiffness or fevers. Is typical of her usual migraine and she comes in with a care plan from her neurologist with suggestions for treatment including IV saline, oxygen, Zofran, ketorolac, and Dilaudid.) Review of Systems Constitutional: denies: Fever, Chills Nose: reports: Rhinorrhea / runny nose, Congestion. 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 : None HEENT: None Psych: Depression, Anxiety Musculoskeletal: Osteoarthritis, Fibromyalgia Derm: None - Past Surgical History Past Surgical History: Yes General: Appendectomy /REFRACTORY TILE HELPER: Other HEENT: Tonsil/Adenoidectomy - Present Medications Home Medications: Ambulatory Orders Medication Instructions Recorded Confirmed Ondansetron Odt [Zofran] 4 mg TL Q6H PRN #10 tablet 11/11/15 04/29/17 Cholecalciferol [Vitamin D3] 5,000 unit PO DAILY 02/09/16 04/29/17 Pregabalin [Lyrica] 100 mg PO BID 02/09/16 04/29/17 Quercetin 02/09/16 Epinephrine [Epipen 2-Olayinka] 0.3 mg IJ ONCE #2 units 04/18/16 04/29/17 Dextroamphetamine/Amphetamine 10 mg PO DAILY 07/31/16 07/31/16 [Adderall 10 mg Tablet] Temazepam [Restoril] 1 tab PO DAILY 07/31/16 04/29/17 Meclizine HCl 1 tab PO Q6H PRN #15 tab.chew 05/24/17 Mometasone Furoate [Nasonex] 1 spray NS BID #1 spray.pump 05/24/17 - Allergies Allergies/Adverse Reactions: Allergies Allergy/AdvReac Type Severity Reaction Status Date / Time dihydroergotamine Allergy Severe Respiratory Verified 05/24/17 21:36 divalproex sodium Allergy Severe anaphylaxis Verified 05/24/17 21:36 [From Depakote] frovatriptan [Frovatriptan] Allergy Severe anaphylaxis Verified 05/24/17 21:36 metoclopramide HCl * Allergy Severe HTN Verified 05/24/17 21:36 [From Reglan] naratriptan HCl * Allergy Severe anaphylaxis Verified 05/24/17 21:36 [From Amerge] prochlorperazine edisylate * Allergy Severe HTN Verified 05/24/17 21:36 [From Compazine] prochlorperazine maleate * Allergy Severe HTN Verified 05/24/17 21:36 [From Compazine] promethazine HCl * Allergy Severe HTN Verified 05/24/17 21:36 [From Phenergan] rizatriptan benzoate * Allergy Severe anaphylaxis Verified 05/24/17 21:36 [From Maxalt] sumatriptan [From Imitrex] Allergy Severe anaphylaxis Verified 05/24/17 21:36 sumatriptan succinate * Allergy Severe anaphylaxis Verified 05/24/17 21:36 [From Imitrex] vancomycin Allergy Severe nicolette Verified 05/24/17 21:36 syndrome doxycycline Allergy Unknown Unknown Verified 05/24/17 21:36 Antihistamines - Alkylamine AdvReac Severe severe Verified 05/24/17 21:36 anxiety, wheezing, dizziness prednisone AdvReac Severe Hallucinati Verified 05/24/17 21:36 ons diphenhydramine HCl * AdvReac Unknown Unknown Verified 05/24/17 21:36 [From Benadryl] ketorolac AdvReac Unknown Verified 05/24/17 21:36 pentosan polysulfate sodium AdvReac Unknown Verified 05/24/17 21:36 [From Elmiron] tape Allergy Hives Uncoded 05/24/17 21:36 - Social History Does the pt smoke?: Yes Smoking Status: Former smoker Does the pt drink ETOH?: No Does the pt have substance abuse?: No - Immunizations Immunizations are current?: Yes - POLST Patient has POLST: No PD ED PE NORMAL - Vitals Vital signs reviewed: Yes - General General: Alert and oriented X 3, No acute distress - HEENT HEENT: PERRL, EOMI, Other (Photophobic and uncomfortable) - Neck Neck: Supple, no meningeal sign, No bony TTP - Neuro Neuro: Alert and oriented X 3, 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 Actually used about 2 mL of Marcaine with epinephrine on either side of C7, but also in the more traditional occipital Trigger points. Departure - Departure Disposition: 01 Home, Self Care Clinical Impression: Complicated migraine Condition: Good Record reviewed to determine appropriate education?: Yes Instructions: ED Headache Migraine Prescriptions: Meclizine HCl 1 tab PO Q6H PRN #15 tab.chew PRN Reason: Vertigo Mometasone Furoate [Nasonex] 1 spray NS BID #1 spray.pump Comments: For discussion with your neurologist, diana in addition to your usual therapies, I did a trigger point injection on either side of C7 with Marcaine with epinephrine, also in the occiput with the same.
[2017-05-24] MEDS ORDERED: KETOROLAC 30 MG/ML VIAL ONE (22:27)
[2017-05-24] MEDS ORDERED: HYDROmorphone 1 MG/ML CARPUJECT ONE ×2 (22:27→23:04)
[2017-05-24] MEDS ORDERED: ONDANSETRON 4 MG/2 ML VIAL ONE (22:27)
[2017-05-24] MEDS ORDERED: LORazepam 2 MG/ML SYRINGE IVP STA (22:53)
[2017-05-24] MEDS ORDERED: BUPIVACAINE 0.5%-EPI 1:200000 PF 30 ML VIAL ONE (23:02)
[2017-05-24] MEDS ORDERED: LORazepam 2 MG/ML SYRINGE ONE (23:05)
[2017-05-24 23:42] VITALS: BP 111/70
== END 2017-05-24 23:47 | disposition home or self-care (01) ==
LOC: ED 21:24
DX: G43.109 Migraine with aura, not intractable, without status migrainosus (principal); Z87.891 Personal history of nicotine dependence
CPT/HCPCS: 20552; 96361; 96374; 96375; 96376; 99283; 99284; J1170; J2060

== ENCOUNTER 2017-06-21 20:27 | Emergency (ER) | payer MEDICAID ==
--- NOTE | 2017-06-21 21:11 | ED Physician Documentation ---
PD HPI HEADACHE - Stated complaint Stated Complaint: MADSEN - Chief complaint Chief Complaint: Neuro - History obtained from History obtained from: Patient, Family - History of Present Illness Timing - onset: How many days ago (3) Timing - duration: Days (3) Timing - details: Gradual onset Pain level max: 9 Pain level now: 9 Location: Right Quality: Throbbing, Aching. No: Thunderclap Associated symptoms: Nausea, Vomiting. No: Fever, Stiff neck, Weakness, Numbness, Syncope, Seizure Improved by: Rest, Dark room, Quiet Worsened by: Light, Noise, Moving Similar symptoms before: Diagnosis (chronic migraines) Recently seen: Emergency Dept (several times here for same) Review of Systems Ten Systems: 10 systems reviewed and negative Constitutional: denies: Fever, Chills Eyes: reports: Photophobia Ears: reports: Tinnitus/ringing (states ongoing for a month or so) Nose: denies: Rhinorrhea / runny nose, Congestion Throat: denies: Sore throat Cardiac: denies: Chest pain / pressure Respiratory: denies: Cough GI: denies: Abdominal Pain, Nausea, Vomiting, Diarrhea Skin: denies: Rash Musculoskeletal: denies: Neck pain, Back pain Neurologic: denies: Focal weakness, Numbness, Confused, Altered mental status PD PAST MEDICAL HISTORY - Past Medical History Cardiovascular: None Respiratory: None Neuro: Headache/migraine Endocrine/Autoimmune: None GI: None 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 : None HEENT: None Psych: Depression, Anxiety Musculoskeletal: Osteoarthritis, Fibromyalgia Derm: None - Past Surgical History Past Surgical History: Yes General: Appendectomy /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: Other HEENT: Tonsil/Adenoidectomy - Present Medications Home Medications: Ambulatory Orders Medication Instructions Recorded Confirmed Ondansetron Odt [Zofran] 4 mg TL Q6H PRN #10 tablet 11/11/15 04/29/17 Cholecalciferol [Vitamin D3] 5,000 unit PO DAILY 02/09/16 04/29/17 Pregabalin [Lyrica] 100 mg PO BID 02/09/16 04/29/17 Quercetin 02/09/16 Epinephrine [Epipen 2-Olayinka] 0.3 mg IJ ONCE #2 units 04/18/16 04/29/17 Dextroamphetamine/Amphetamine 10 mg PO DAILY 07/31/16 07/31/16 [Adderall 10 mg Tablet] Temazepam [Restoril] 1 tab PO DAILY 07/31/16 04/29/17 Meclizine HCl 1 tab PO Q6H PRN #15 tab.chew 05/24/17 Mometasone Furoate [Nasonex] 1 spray NS BID #1 spray.pump 05/24/17 Magnesium 250 mg PO DAILY 06/21/17 06/21/17 - Allergies Allergies/Adverse Reactions: Allergies Allergy/AdvReac Type Severity Reaction Status Date / Time dihydroergotamine Allergy Severe Respiratory Verified 06/21/17 20:33 divalproex sodium Allergy Severe anaphylaxis Verified 06/21/17 20:33 [From Depakote] frovatriptan [Frovatriptan] Allergy Severe anaphylaxis Verified 06/21/17 20:33 metoclopramide HCl * Allergy Severe HTN Verified 06/21/17 20:33 [From Reglan] naratriptan HCl * Allergy Severe anaphylaxis Verified 06/21/17 20:33 [From Amerge] prochlorperazine edisylate * Allergy Severe HTN Verified 06/21/17 20:33 [From Compazine] prochlorperazine maleate * Allergy Severe HTN Verified 06/21/17 20:33 [From Compazine] promethazine HCl * Allergy Severe HTN Verified 06/21/17 20:33 [From Phenergan] rizatriptan benzoate * Allergy Severe anaphylaxis Verified 06/21/17 20:33 [From Maxalt] sumatriptan [From Imitrex] Allergy Severe anaphylaxis Verified 06/21/17 20:33 sumatriptan succinate * Allergy Severe anaphylaxis Verified 06/21/17 20:33 [From Imitrex] vancomycin Allergy Severe nicolette Verified 06/21/17 20:33 syndrome doxycycline Allergy Unknown Unknown Verified 06/21/17 20:33 Antihistamines - Alkylamine AdvReac Severe severe Verified 06/21/17 20:33 anxiety, wheezing, dizziness prednisone AdvReac Severe Hallucinati Verified 06/21/17 20:33 ons diphenhydramine HCl * AdvReac Unknown Unknown Verified 06/21/17 20:33 [From Benadryl] ketorolac AdvReac Unknown Verified 06/21/17 20:33 pentosan polysulfate sodium AdvReac Unknown Verified 06/21/17 20:33 [From Elmiron] tape Allergy Hives Uncoded 06/21/17 20:33 - Social History Does the pt smoke?: Yes Smoking Status: Current every day smoker Does the pt drink ETOH?: No Does the pt have substance abuse?: No - Immunizations Immunizations are current?: Yes - POLST Patient has POLST: No PD ED PE NORMAL - Vitals Vital signs reviewed: Yes - General General: Alert and oriented X 3, Other (appears in pain) - HEENT HEENT: PERRL, Ears normal, Moist mucous membranes, Pharynx benign, Dentition benign - Neck Neck: Supple, no meningeal sign, No adenopathy - Cardiac Cardiac: RRR, Strong equal pulses - Respiratory Respiratory: No respiratory distress, Clear bilaterally - Abdomen Abdomen: Soft, Non tender, Non distended - Derm Derm: Warm and dry, No rash - Extremities Extremities: No edema, No calf tenderness / cord - Neuro Neuro: Alert and oriented X 3, process tank tender 2-12 intact, No motor deficit, No sensory deficit, Normal speech - Psych Psych: Normal mood, Normal affect Results - Vitals Vitals: Vital Signs - 24 hr 06/21/17 06/21/17 20:30 22:59 Temperature 37.0 C Heart Rate 105 H 79 Respiratory 16 18 Rate Blood Pressure 136/85 H 114/81 H O2 Saturation 100 97 Oxygen O2 Source Room air PD MEDICAL DECISION MAKING - ED course Complexity details: reviewed results, re-evaluated patient, considered differential, d/w patient, d/w family ED course: Patient is a 32-year-old female who presents to the emergency department with her usual migraine headache. This is complicated by tinnitus and vertigo. This is been an ongoing issue for several months for her. A sphenopalatine ganglion block was performed with 4% lidocaine, this actually resolved her tinnitus and vertigo as well as most of her headache, however the headache came back when the lidocaine wore off. Therefore 0.5% bupivacaine was used, she had partial relief with this and was then given her usual migraine headache cocktail as prescribed by her neurologist. Recommend that she follow-up with her neurologist to see if perhaps her sphenopalatine ganglion could also be blocked with her usual Botox injections. Headache resolved and she is eating a sandwich in the emergency department. Photophobia resolved. Patient and family counseled regarding signs and symptoms for which I believe and urgent re- evaluation would be necessary. Patient with good understanding of and agreement to plan and is comfortable going home at this time This document was made in part using voice recognition software. While efforts are made to proofread this document, sound alike and grammatical errors may occur. Departure - Departure Disposition: 01 Home, Self Care Clinical Impression: Migraine Qualifiers: Migraine type: unspecified Status migrainosus presence: without status migrainosus Intractability: not intractable Qualified Code(s): G43.909 - Migraine, unspecified, not intractable, without status migrainosus Condition: Good Instructions: ED Headache Migraine Follow-Up: Kyle Pool MD [Primary Care Provider] - Nils Park MD [Physician No Access] - Within 1 week Comments: We performed a sphenopalatine ganglion block on you tonight for your headache. This seemed to help many of your symptoms and may provide a target for longer relief of your headaches. Talk to your neurologist to see if this is an option for you. Return if you worsen.
[2017-06-21] MEDS ORDERED: ONDANSETRON 4 MG/2 ML VIAL IM STA (21:35)
[2017-06-21] MEDS ORDERED: ONDANSETRON 4 MG/2 ML VIAL ONE (21:43)
[2017-06-21] MEDS ORDERED: BUPIVACAINE 0.5% PF 30 ML VIAL SUBQ STA (22:04)
[2017-06-21] MEDS ORDERED: BUPIVACAINE 0.5% PF 30 ML VIAL ONE (22:10)
[2017-06-21] MEDS ORDERED: HYDROmorphone 1 MG/ML SYRINGE IVP STA (22:22)
[2017-06-21] MEDS ORDERED: SODIUM CHLORIDE 0.9% 500 ML IV ONE (22:22)
[2017-06-21] MEDS ORDERED: KETOROLAC 60 MG/2 ML VIAL IVP STA (22:22)
[2017-06-21] MEDS ORDERED: MECLIZINE 12.5 MG TABLET PO STA (22:31)
[2017-06-21] MEDS ORDERED: HYDROmorphone 1 MG/ML SYRINGE ONE (22:33)
[2017-06-21] MEDS ORDERED: KETOROLAC 30 MG/ML VIAL ONE (22:33)
[2017-06-21] MEDS ORDERED: MECLIZINE 12.5 MG TABLET PO ONE (22:59)
[2017-06-22] MEDS ORDERED: LORazepam 2 MG/ML SYRINGE IVP STA (00:05)
[2017-06-22] MEDS ORDERED: HALOPERIDOL 5 MG/ML VIAL IVP STA (00:05)
[2017-06-22] MEDS ORDERED: HALOPERIDOL 5 MG/ML VIAL ONE (00:16)
[2017-06-22] MEDS ORDERED: LORazepam 2 MG/ML SYRINGE ONE (00:16)
[2017-06-22 00:51] VITALS: BP 118/64
== END 2017-06-22 00:51 | disposition home or self-care (01) ==
LOC: ED 20:27
DX: G43.909 Migraine, unspecified, not intractable, without status migrainosus (principal); F17.200 Nicotine dependence, unspecified, uncomplicated
CPT/HCPCS: 64505; 96361; 96372; 96374; 96375; 99283; 99284; A9270; J1170; J2060

== ENCOUNTER 2017-07-26 21:38 | Emergency (ER) | payer MEDICAID ==
[2017-07-26] MEDS ORDERED: ONDANSETRON 4 MG/2 ML VIAL IVP STA (21:50)
[2017-07-26] MEDS ORDERED: SODIUM CHLORIDE 0.9% 1,000 ML IV ONE (21:50)
[2017-07-26] MEDS ORDERED: KETOROLAC 30 MG/ML VIAL IVP STA (21:51)
[2017-07-26] MEDS ORDERED: HYDROmorphone 1 MG/ML SYRINGE IVP STA ×2 (21:51→22:14)
--- NOTE | 2017-07-26 21:52 | ED Physician Documentation ---
PD HPI HEADACHE - Stated complaint Stated Complaint: MADSEN - Chief complaint Chief Complaint: Neuro - History obtained from History obtained from: Patient, Family - History of Present Illness Timing - onset: How many days ago (2) Timing - duration: Days Timing - details: Gradual onset, Still present Quality: Throbbing, Aching Associated symptoms: Nausea, Vomiting. No: Fever, Stiff neck Improved by: Rest, Dark room, Quiet Similar symptoms before: Work up / diagnostics, Treatment, Follow up Recently seen: Not recently seen - Additional information Additional information: Patient is a 32 year old female with a history of migraine headaches and somatization disorder who is presenting to the emergency department for a headache. According to patient and for the last two days patient has had a migraine that has not improved with her home medications. patient states that she has not been able to keep anything down during that time. patient states it is similar to her previous headaches. Review of Systems Constitutional: denies: Fever, Chills Eyes: reports: Photophobia Ears: reports: Reviewed and negative Nose: reports: Reviewed and negative Throat: reports: Reviewed and negative Cardiac: reports: Reviewed and negative Respiratory: denies: Dyspnea, Cough GI: reports: Nausea, Vomiting : reports: Reviewed and negative Skin: reports: Reviewed and negative Neurologic: reports: Headache. 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: Other HEENT: Tonsil/Adenoidectomy - Present Medications Home Medications: Ambulatory Orders Medication Instructions Recorded Confirmed Ondansetron Odt [Zofran] 4 mg TL Q6H PRN #10 tablet 11/11/15 04/29/17 Cholecalciferol [Vitamin D3] 5,000 unit PO DAILY 02/09/16 04/29/17 Pregabalin [Lyrica] 100 mg PO BID 02/09/16 04/29/17 Quercetin 02/09/16 Epinephrine [Epipen 2-Olayinka] 0.3 mg IJ ONCE #2 units 04/18/16 04/29/17 Dextroamphetamine/Amphetamine 10 mg PO DAILY 07/31/16 07/31/16 [Adderall 10 mg Tablet] Temazepam [Restoril] 1 tab PO DAILY 07/31/16 04/29/17 Meclizine HCl 1 tab PO Q6H PRN #15 tab.chew 05/24/17 Mometasone Furoate [Nasonex] 1 spray NS BID #1 spray.pump 05/24/17 Magnesium 250 mg PO DAILY 06/21/17 06/21/17 - Allergies Allergies/Adverse Reactions: Allergies Allergy/AdvReac Type Severity Reaction Status Date / Time dihydroergotamine Allergy Severe Respiratory Verified 07/26/17 21:49 divalproex sodium Allergy Severe anaphylaxis Verified 07/26/17 21:49 [From Depakote] frovatriptan [Frovatriptan] Allergy Severe anaphylaxis Verified 07/26/17 21:49 metoclopramide HCl * Allergy Severe HTN Verified 07/26/17 21:49 [From Reglan] naratriptan HCl * Allergy Severe anaphylaxis Verified 07/26/17 21:49 [From Amerge] prochlorperazine edisylate * Allergy Severe HTN Verified 07/26/17 21:49 [From Compazine] prochlorperazine maleate * Allergy Severe HTN Verified 07/26/17 21:49 [From Compazine] promethazine HCl * Allergy Severe HTN Verified 07/26/17 21:49 [From Phenergan] rizatriptan benzoate * Allergy Severe anaphylaxis Verified 07/26/17 21:49 [From Maxalt] sumatriptan [From Imitrex] Allergy Severe anaphylaxis Verified 07/26/17 21:49 sumatriptan succinate * Allergy Severe anaphylaxis Verified 07/26/17 21:49 [From Imitrex] vancomycin Allergy Severe nicolette Verified 07/26/17 21:49 syndrome doxycycline Allergy Unknown Unknown Verified 07/26/17 21:49 Antihistamines - Alkylamine AdvReac Severe severe Verified 07/26/17 21:49 anxiety, wheezing, dizziness prednisone AdvReac Severe Hallucinati Verified 07/26/17 21:49 ons diphenhydramine HCl * AdvReac Unknown Unknown Verified 07/26/17 21:49 [From Benadryl] ketorolac AdvReac Unknown Verified 07/26/17 21:49 pentosan polysulfate sodium AdvReac Unknown Verified 07/26/17 21:49 [From Elmiron] tape Allergy Hives Uncoded 07/26/17 21:49 - Social History Does the pt smoke?: Yes Smoking Status: Current every day smoker Does the pt drink ETOH?: No Does the pt have substance abuse?: No - Immunizations Immunizations are current?: Yes - POLST Patient has POLST: No PD ED PE NORMAL - Vitals Vital signs reviewed: Yes - General General: Well developed/nourished - HEENT HEENT: Atraumatic, Moist mucous membranes - Neck Neck: Supple, no meningeal sign - Cardiac Cardiac: RRR, No murmur - Respiratory Respiratory: No respiratory distress - Abdomen Abdomen: Non distended - Derm Derm: Normal color, Warm and dry - Extremities Extremities: No deformity, No edema - Neuro Neuro: Alert and oriented X 3, No motor deficit, No sensory deficit, Normal speech Eye Opening: Spontaneous Motor: Obeys Commands Verbal: Oriented GCS Score: 15 PD ED PE EXPANDED - General General: Alert, In Pain Results - Vitals Vitals: Vital Signs - 24 hr 07/26/17 21:40 Temperature 37.4 C Heart Rate 115 H Respiratory 18 Rate Blood Pressure 113/88 H O2 Saturation 100 Oxygen O2 Source Room air Oxygen Flow Rate 12 PD MEDICAL DECISION MAKING - ED course Complexity details: reviewed old records, reviewed results, re-evaluated patient , d/w patient, d/w family ED course: Patient was seen and examined at bedside. patient's vital signs were within normal limits. Patient's headache protocol was followed. Patient was treated with fluids, toradol, zofran and dilaudid. patient's pain improved from a 10 to a 6. Patient stated that she was feeling anxious and jittery and was treated with 1mg of ativan. patient required no further work up at this time and was stable for discharge with outpatient follow up. Departure - Departure Disposition: 01 Home, Self Care Clinical Impression: Migraine Condition: Good Instructions: ED Headache Migraine Follow-Up: Kyle Pool MD [Primary Care Provider] - Comments: Your symptoms today are likely being caused by a migraine headache. it is important that you stay away from any triggers. It is also important that you get enough sleep and stay well hydrated. You should follow up with your doctor/ neurologist for further evaluation and care. You may return to the emergency department for new, worsening or uncontrollable symptoms.
[2017-07-26] MEDS ORDERED: KETOROLAC 30 MG/ML VIAL ONE (22:00)
[2017-07-26] MEDS ORDERED: HYDROmorphone 1 MG/ML SYRINGE ONE ×2 (22:00→22:18)
[2017-07-26] MEDS ORDERED: ONDANSETRON 4 MG/2 ML VIAL ONE (22:00)
[2017-07-26] MEDS: HYDROmorphone 1 MG/ML SYRINGE IVP STA ×2 (22:13→22:19)
[2017-07-26] MEDS ORDERED: LORazepam 2 MG/ML SYRINGE IVP STA (22:27)
[2017-07-26] MEDS ORDERED: LORazepam 2 MG/ML VIAL ONE (22:36)
[2017-07-26 23:54] VITALS: BP 108/74
== END 2017-07-26 23:00 | disposition home or self-care (01) ==
LOC: ED 21:38
DX: G43.909 Migraine, unspecified, not intractable, without status migrainosus (principal); M19.90 Unspecified osteoarthritis, unspecified site; M79.7 Fibromyalgia; F17.200 Nicotine dependence, unspecified, uncomplicated
CPT/HCPCS: 96361; 96374; 96375; 99283; 99284; J1170; J2060

== ENCOUNTER 2017-08-14 20:19 | Outpatient (CLI) | payer MEDICAID | END 2017-08-14 20:20 | disposition critical access hospital (66) | LOC: EMS 20:19 | PROVIDERS: ATTEND Surgery | DX: R06.03 Acute respiratory distress (principal) | CPT/HCPCS: A0425; A0427 ==

== ENCOUNTER 2017-08-14 20:53 | Emergency (ER) | payer MEDICAID ==
[2017-08-14] MEDS ORDERED: SODIUM CHLORIDE 0.9% 1,000 ML IV ONE (21:19)
[2017-08-14] MEDS ORDERED: EPINEPHrine 1 MG/ML AMP SUBQ STA (21:21)
[2017-08-14] MEDS ORDERED: LORazepam 2 MG/ML VIAL IVP PRN (21:22)
[2017-08-14 21:40] LABS: BASOPHILS % (AUTO) 0.3 %; EOSINOPHILS # (AUTO) 0.2 10^3/uL (0.0-0.7); EOSINOPHILS % (AUTO) 1.9 %; HGB - HEMOGLOBIN 13.8 g/dL (12.0-16.0); LYMPHOCYTES # (AUTO) 3.2 10^3/uL (1.5-3.5); LYMPHOCYTES % (AUTO) 34.9 %; MEAN CORPUSCULAR HEMOGLOBIN 30.1 pg (27.0-31.0); MEAN CORPUSCULAR HGB CONC 34.2 g/dL (32.0-36.0); MEAN PLATELET VOLUME 7.8 fL (7.9-10.8); MONOCYTES # (AUTO) 0.7 10^3/uL (0.0-1.0); MONOCYTES % (AUTO) 7.9 %; NEUTROPHILS # (AUTO) 5.1 10^3/uL (1.5-6.6); PLT - PLATELET COUNT 242 10^3/uL (130-450); RED BLOOD COUNT 4.58 10^6/uL (4.20-5.40); WHITE BLOOD COUNT 9.2 x10^3/uL (4.8-10.8)
[2017-08-14 21:42] VITALS: BP 116/88
[2017-08-14 21:48] LABS: ALBUMIN 4.6 g/dL (3.2-5.5); ALBUMIN/GLOBULIN RATIO 1.3 (1.0-2.2); BILIRUBIN,TOTAL 0.3 mg/dL (0.2-1.0); CALCIUM 9.2 mg/dL (8.5-10.3); CREATININE 0.7 mg/dL (0.4-1.0); TOTAL PROTEIN 8.1 g/dL (6.7-8.2)
--- NOTE | 2017-08-14 22:02 | ED Physician Documentation ---
History of Present Illness - Stated complaint Stated Complaint: POSS ALLERGIC REACTION/SOB - Chief complaint Chief Complaint: Resp - History obtained from History obtained from: Patient (pr attived by EMS for a reported allergic reaction. unknown source of the reaction. EMS placed a right tibial IO because they could not get IV access. she also received 2 doses of epi in route. upon arrival the pt staes that she still could not breath.) Review of Systems Constitutional: denies: Fever, Chills Cardiac: denies: Chest pain / pressure Respiratory: reports: Dyspnea, Wheezing GI: denies: Nausea, Vomiting : denies: Dysuria Skin: denies: Rash, Lesions, Laceration (s) Neurologic: reports: Headache. 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 : None HEENT: None Psych: Depression, Anxiety Musculoskeletal: Osteoarthritis, Fibromyalgia Derm: None - Past Surgical History Past Surgical History: Yes General: Appendectomy /REFRIGERATOR REPAIRMAN: Other HEENT: Tonsil/Adenoidectomy - Present Medications Home Medications: Ambulatory Orders Medication Instructions Recorded Confirmed Ondansetron Odt [Zofran] 4 mg TL Q6H PRN #10 tablet 11/11/15 08/14/17 Cholecalciferol [Vitamin D3] 5,000 unit PO DAILY 02/09/16 08/14/17 Pregabalin [Lyrica] 100 mg PO BID 02/09/16 08/14/17 Quercetin 02/09/16 Epinephrine [Epipen 2-Olayinka] 0.3 mg IJ ONCE #2 units 04/18/16 08/14/17 Dextroamphetamine/Amphetamine 10 mg PO DAILY 07/31/16 08/14/17 [Adderall 10 mg Tablet] Temazepam [Restoril] 1 tab PO DAILY 07/31/16 08/14/17 Meclizine HCl 1 tab PO Q6H PRN #15 tab.chew 05/24/17 08/14/17 Mometasone Furoate [Nasonex] 1 spray NS BID #1 spray.pump 05/24/17 08/14/17 Magnesium 250 mg PO DAILY 06/21/17 08/14/17 Epinephrine [Epipen 2-Olayinka] 0.3 mg IJ ONCE PRN #1 auto.injct 08/14/17 - Allergies Allergies/Adverse Reactions: Allergies Allergy/AdvReac Type Severity Reaction Status Date / Time dihydroergotamine Allergy Severe Respiratory Verified 08/14/17 21:43 divalproex sodium Allergy Severe anaphylaxis Verified 08/14/17 21:43 [From Depakote] frovatriptan [Frovatriptan] Allergy Severe anaphylaxis Verified 08/14/17 21:43 metoclopramide HCl * Allergy Severe HTN Verified 08/14/17 21:43 [From Reglan] naratriptan HCl * Allergy Severe anaphylaxis Verified 08/14/17 21:43 [From Amerge] prochlorperazine edisylate * Allergy Severe HTN Verified 08/14/17 21:43 [From Compazine] prochlorperazine maleate * Allergy Severe HTN Verified 08/14/17 21:43 [From Compazine] promethazine HCl * Allergy Severe HTN Verified 08/14/17 21:43 [From Phenergan] rizatriptan benzoate * Allergy Severe anaphylaxis Verified 08/14/17 21:43 [From Maxalt] sumatriptan [From Imitrex] Allergy Severe anaphylaxis Verified 08/14/17 21:43 sumatriptan succinate * Allergy Severe anaphylaxis Verified 08/14/17 21:43 [From Imitrex] vancomycin Allergy Severe nicolette Verified 08/14/17 21:43 syndrome doxycycline Allergy Unknown Unknown Verified 08/14/17 21:43 Antihistamines - Alkylamine AdvReac Severe severe Verified 08/14/17 21:43 anxiety, wheezing, dizziness prednisone AdvReac Severe Hallucinati Verified 08/14/17 21:43 ons diphenhydramine HCl * AdvReac Unknown Unknown Verified 08/14/17 21:43 [From Benadryl] ketorolac AdvReac Unknown Verified 08/14/17 21:43 pentosan polysulfate sodium AdvReac Unknown Verified 08/14/17 21:43 [From Elmiron] tape Allergy Hives Uncoded 08/14/17 21:43 - Social History Does the pt smoke?: Yes Smoking Status: Current every day smoker Does the pt drink ETOH?: No Does the pt have substance abuse?: No - Immunizations Immunizations are current?: Yes - POLST Patient has POLST: No PD ED PE NORMAL - General General: Alert and oriented X 3. No: No acute distress (mild distress) - HEENT HEENT: Moist mucous membranes, Pharynx benign - Cardiac Cardiac: No: RRR (tachycardic) - Respiratory Respiratory: No: No respiratory distress (gagging with inspiration ) - Abdomen Abdomen: Soft - Derm Derm: Normal color, No rash - Neuro Neuro: Alert and oriented X 3 Eye Opening: Spontaneous Motor: Obeys Commands Verbal: Oriented GCS Score: 15 - Psych Psych: No: Normal mood (anxious) Results - Vitals Vitals: Vital Signs - 24 hr 08/14/17 08/14/17 08/14/17 20:54 20:55 21:35 Temperature 36.6 C Heart Rate 147 H 139 H 134 H Respiratory 17 24 11 L Rate Blood Pressure 137/98 H 137/98 H 116/68 O2 Saturation 98 99 96 08/14/17 08/14/17 21:40 21:57 Temperature Heart Rate 130 H 134 H Respiratory 17 23 Rate Blood Pressure 116/88 H 116/88 H O2 Saturation 98 100 Oxygen O2 Source Nasal cannula Oxygen Flow Rate 3 - Labs Labs: Laboratory Tests 08/14/17 08/14/17 21:28 21:28 WBC 9.2 RBC 4.58 Hgb 13.8 Hct 40.3 MCV 88.0 MCH 30.1 MCHC 34.2 RDW 12.0 Plt Count 242 MPV 7.8 L Neut # 5.1 Lymph # 3.2 [place] # 0.7 Eos # 0.2 Baso # 0.0 Absolute Nucleated RBC 0.00 Nucleated RBC % 0.0 Sodium 135 Potassium 3.2 L Chloride 103 Carbon Dioxide 21 Anion Gap 11.0 BUN 22 H Creatinine 0.7 Estimated GFR (MDRD) 98 Glucose 147 H Calcium 9.2 Total Bilirubin 0.3 AST 25 ALT 28 Alkaline Phosphatase 46 Total Protein 8.1 Albumin 4.6 Globulin 3.5 Albumin/Globulin Ratio 1.3 Lipase 26 PD MEDICAL DECISION MAKING - ED course Complexity details: re-evaluated patient, considered differential, d/w patient ED course: pt was gagging upon arrival however had no swelling of the tongue. She declined steroids and benadryl because of a allergy. informed pt that she may need intubated because of her symptoms but she stated that she did not intubated. I informed her that she may if we did not intubate she expressed understanding and still did not intubated. nursing and was at bedside for this conversation. She was given another dose of epi her in the ER. her IO was removed after and IV was established. She was asking for IV pain medications for ther pain in her leg and a migraine for the epi. she reported allergy to tylenol. I informed her that I was not going to give her IV pain medications. She reported that she wanted to leave. I informed her that she would have to leave AMA because of her presenting symptoms and the medications that she had been given for this. I informed her that if she left her allergy symptoms may get worse and she could . She said that she needed pain medications. I again told her that I was not going to give her IV pain meds. She stated that she was going to leave. She had no respiratory distress with these conversations. She was A&O x3 and in my opinion has the capacity to make decisions. this conversation was with the at bedside. Departure - Departure Disposition: 07 Against Medical Advice Clinical Impression: Allergic reaction Condition: Stable Instructions: ED Anaphylaxis General Prescriptions: Epinephrine [Epipen 2-Olayinka] 0.3 mg IJ ONCE PRN #1 auto.injct PRN Reason: Anaphylaxis Comments: You may return to the ER at any point if you feel like your allergy is worsening or if you have shortness of breath. Follow up with your primary care provider in the next week. you are leaving against medical advice. Discharge Date/Time: 08/14/17 22:09
== END 2017-08-14 22:09 | disposition left against medical advice (07) ==
LOC: EDUNIT# → ED 20:53
DX: T78.40XA Allergy, unspecified, initial encounter (principal)
CPT/HCPCS: 36415; 80053; 83690; 85025; 96361; 96372; 96374; 99284; 99285; J2060; 36680

== ENCOUNTER 2017-10-26 21:58 | Emergency (ER) | payer MEDICAID ==
[2017-10-26] MEDS ORDERED: SODIUM CHLORIDE 0.9% 1,000 ML IV STA (23:10)
--- NOTE | 2017-10-26 23:33 | ED Physician Documentation ---
PD HPI HEADACHE - Stated complaint Stated Complaint: HEADACHE - Chief complaint Chief Complaint: Neuro - History obtained from History obtained from: Patient - History of Present Illness Timing - onset: Enter time (18:00), Today Timing - onset during: Rest Timing - duration: Hours Timing - details: Gradual onset Pain level max: 10 Pain level now: 10 Worst headache ever?: No: Worst headache ever? Location: Front, Right, Left Quality: Throbbing, Aching Associated symptoms: Nausea. No: Fever, Stiff neck, Vomiting, Weakness, Numbness, Eye pain, Vision changes Improved by: Dark room, Quiet Worsened by: Light, Noise Similar symptoms before: Diagnosis (migraine headache, cluster headache) Recently seen: Emergency Dept (I last saw this patient in ED in February 2017; she has had [address] [facility] ED visits. She was also evaluated in [facility] ED in August 2017 and ED last month) Review of Systems Constitutional: denies: Fever, Chills, Sweats Eyes: reports: Photophobia. denies: Loss of vision, Decreased vision Throat: denies: Sore throat Cardiac: reports: Reviewed and negative Respiratory: reports: Reviewed and negative GI: reports: Nausea, Vomiting. denies: Abdominal Pain Neurologic: reports: Headache. 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 : None HEENT: None Psych: Depression, Anxiety Musculoskeletal: Osteoarthritis, Fibromyalgia Derm: None - Past Surgical History Past Surgical History: Yes General: Appendectomy /ENTERPRISE SECURITY ARCHITECT: Other HEENT: Tonsil/Adenoidectomy - Present Medications Home Medications: Ambulatory Orders Medication Instructions Recorded Confirmed Ondansetron Odt [Zofran] 4 mg TL Q6H PRN #10 tablet 11/11/15 08/14/17 Cholecalciferol [Vitamin D3] 5,000 unit PO DAILY 02/09/16 08/14/17 Pregabalin [Lyrica] 100 mg PO BID 02/09/16 08/14/17 Quercetin 02/09/16 Epinephrine [Epipen 2-Olayinka] 0.3 mg IJ ONCE #2 units 04/18/16 08/14/17 Dextroamphetamine/Amphetamine 10 mg PO DAILY 07/31/16 08/14/17 [Adderall 10 mg Tablet] Temazepam [Restoril] 1 tab PO DAILY 07/31/16 08/14/17 Meclizine HCl 1 tab PO Q6H PRN #15 tab.chew 05/24/17 08/14/17 Mometasone Furoate [Nasonex] 1 spray NS BID #1 spray.pump 05/24/17 08/14/17 Magnesium 250 mg PO DAILY 06/21/17 08/14/17 Epinephrine [Epipen 2-Olayinka] 0.3 mg IJ ONCE PRN #1 auto.injct 08/14/17 - Allergies Allergies/Adverse Reactions: Allergies Allergy/AdvReac Type Severity Reaction Status Date / Time dihydroergotamine Allergy Severe Respiratory Verified 10/26/17 22:13 divalproex sodium Allergy Severe anaphylaxis Verified 10/26/17 22:13 [From Depakote] frovatriptan [Frovatriptan] Allergy Severe anaphylaxis Verified 10/26/17 22:13 metoclopramide HCl * Allergy Severe HTN Verified 10/26/17 22:13 [From Reglan] naratriptan HCl * Allergy Severe anaphylaxis Verified 10/26/17 22:13 [From Amerge] prochlorperazine edisylate * Allergy Severe HTN Verified 10/26/17 22:13 [From Compazine] prochlorperazine maleate * Allergy Severe HTN Verified 10/26/17 22:13 [From Compazine] promethazine HCl * Allergy Severe HTN Verified 10/26/17 22:13 [From Phenergan] rizatriptan benzoate * Allergy Severe anaphylaxis Verified 10/26/17 22:13 [From Maxalt] sumatriptan [From Imitrex] Allergy Severe anaphylaxis Verified 10/26/17 22:13 sumatriptan succinate * Allergy Severe anaphylaxis Verified 10/26/17 22:13 [From Imitrex] vancomycin Allergy Severe nicolette Verified 10/26/17 22:13 syndrome doxycycline Allergy Unknown Unknown Verified 10/26/17 22:13 Antihistamines - Alkylamine AdvReac Severe severe Verified 10/26/17 22:13 anxiety, wheezing, dizziness prednisone AdvReac Severe Hallucinati Verified 10/26/17 22:13 ons diphenhydramine HCl * AdvReac Unknown Unknown Verified 10/26/17 22:13 [From Benadryl] ketorolac AdvReac Unknown Verified 10/26/17 22:13 pentosan polysulfate sodium AdvReac Unknown Verified 10/26/17 22:13 [From Elmiron] tape Allergy Hives Uncoded 10/26/17 22:13 - Social History Does the pt smoke?: Yes Smoking Status: Current every day smoker Does the pt drink ETOH?: No Does the pt have substance abuse?: No - Immunizations Immunizations are current?: Yes - POLST Patient has POLST: No PD ED PE NORMAL - Vitals Vital signs reviewed: Yes - General General: Alert and oriented X 3, Well developed/nourished, Other (lights are off in the room; patient wearing sunglasses. 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, No motor deficit, No sensory deficit, Normal speech Eye Opening: Spontaneous Motor: Obeys Commands Verbal: Oriented GCS Score: 15 PD ED PE EXPANDED - Eyes Eyes: Other (photophobia) Results - Vitals Vitals: Vital Signs - 24 hr 10/26/17 10/27/17 22:08 01:59 Temperature 36.6 C Heart Rate 122 H 78 Respiratory 18 16 Rate Blood Pressure 122/95 H 117/82 H O2 Saturation 99 97 Oxygen O2 Source Room air Oxygen Flow Rate 15 PD MEDICAL DECISION MAKING - ED course Complexity details: reviewed old records, re-evaluated patient, considered differential, d/w patient ED course: Patient presents with MADSEN; she has had many ED visits for MADSEN and has a care plan regarding recommendations for ED treatment of her headache. I followed these guidelines, including IV fluids, zofran, dilaudid, oxygen, and toradol. She reported no relief with these measures, and thus another dose of dilaudid given (1 mg per dose) as well as another 4mg dose of zofran. On reevaluation, she says she improved "to the level I'm usually at when I first need to come in to the emergency room" (she says when she came in tonight, she was worse than her usual presenting level of pain). I reviewed with her that in following the care plan, I feel that giving more than the care plan's guidelines defeats the purpose of such a plan; I have had this discussion with her in the past on previous visits. She then asked for "IM dilaudid" (per patient), as "it would last longer" than intravenous doses. She had been cooperative in adhering to the limits outlined by her care plan on the most recent visits when I was the physician taking care of her, and thus I agreed to giving an IM dose but that I would then discharge her. She expressed dissatisfaction with the 1mg dose, repeatedly asking for 2mg, which I again explained that I would not be comfortable ordering. She says she feels she will likely return "in the morning " if I do not give a 2mg dose. She was also given ativan 1mg IV during ED visit. Also given GI cocktail, which she requested. Based on my previous encounters with this patient for similar c/o, I did not feel emergent testing was indicated. Departure - Departure Disposition: 01 Home, Self Care Clinical Impression: Headache Qualifiers: Headache type: unspecified Headache chronicity pattern: acute headache Intractability: not intractable Qualified Code(s): R51 - Headache Condition: Good Instructions: ED Cephalgia Unspecified Follow-Up: Kyle Pool MD [Primary Care Provider] - Discharge Date/Time: 10/27/17 02:00
[2017-10-26] MEDS ORDERED: HYDROmorphone 1 MG/ML SYRINGE IVP STA (23:34)
[2017-10-26] MEDS ORDERED: KETOROLAC 60 MG/2 ML VIAL IVP STA (23:34)
[2017-10-26] MEDS ORDERED: ONDANSETRON 4 MG/2 ML VIAL IVP STA (23:34)
[2017-10-27] MEDS ORDERED: HYDROmorphone 1 MG/ML SYRINGE IVP STA (00:01)
[2017-10-27] MEDS ORDERED: ONDANSETRON 4 MG/2 ML VIAL IVP STA ×2 (00:01→01:22)
[2017-10-27] MEDS ORDERED: LORazepam 2 MG/ML VIAL IVP STA (00:23)
[2017-10-27] MEDS ORDERED: SODIUM CHLORIDE 0.9% 1,000 ML IV STA (00:23)
[2017-10-27] MEDS ORDERED: HYDROmorphone 1 MG/ML SYRINGE IM STA (01:22)
[2017-10-27] MEDS ORDERED: MAG HYDROX/AL HYDROX/SIMETH 30 ML UDC PO STA (01:33)
[2017-10-27] MEDS ORDERED: PHENobarb/HYOSCY/ATROPINE/SCOP 5 ML UDC PO STA (01:34)
[2017-10-27] MEDS ORDERED: LIDOCAINE VISCOUS 2% 15 ML UDC MM STA (01:34)
[2017-10-27 02:00] VITALS: BP 117/82
== END 2017-10-27 02:00 | disposition home or self-care (01) ==
LOC: ED 21:58
DX: R51 Headache (principal); F17.200 Nicotine dependence, unspecified, uncomplicated
CPT/HCPCS: 96361; 96372; 96374; 96375; 96376; 99284; A9270; J1170; J2060

== ENCOUNTER 2017-10-30 10:55 | Outpatient (CLI) | payer MEDICAID ==
--- NOTE | 2017-10-30 13:34 | Mammography Report ---
BILATERAL DIAGNOSTIC MAMMOGRAM: 10/30/2017. COMPARISON: No comparison, baseline exam. INDICATION: Unusual sensations of the breast. No palpable abnormality per se. TECHNIQUE: Bilateral CC and MLO breast views. FINDINGS: The breast parenchyma is extremely dense which may limit the sensitivity of mammography. No dominant mass, architectural distortion, or concerning cluster of microcalcifications is seen. IMPRESSION: 1. BI-RADS CATEGORY 1 - NEGATIVE. 2. RECOMMEND ANNUAL SCREENING MAMMOGRAM BEGINNING AT AGE 40 IN THE ABSENCE OF INCREASED RISK FACTORS OR ADDITIONAL CLINICAL CONCERNS. STANDARD QUALIFYING STATEMENTS: 1. This examination was reviewed with the aid of Computer-Aided Detection (CAD) . 2. A negative or benign imaging report should not delay biopsy if clinically suspicious findings are present. Consider surgical consultation if warranted. More than 5 % of cancers are not identified by imaging. 3. Dense breasts may obscure an underlying neoplasm. TD: 10/30/2017 13:34 JAS
== END 2017-10-30 10:56 | disposition home or self-care (01) ==
LOC: DI 10:55
PROVIDERS: ATTEND Family Medicine
DX: N64.4 Mastodynia (principal)
CPT/HCPCS: 77066

== ENCOUNTER 2017-11-27 08:00 | Outpatient (CLI) | payer MEDICAID ==
[2017-11-27 12:23] LABS: BASOPHILS % (AUTO) 0.6 %; EOSINOPHILS # (AUTO) 0.1 10^3/uL (0.0-0.7); EOSINOPHILS % (AUTO) 1.3 %; HGB - HEMOGLOBIN 12.9 g/dL (12.0-16.0); LYMPHOCYTES # (AUTO) 1.8 10^3/uL (1.5-3.5); LYMPHOCYTES % (AUTO) 34.6 %; MEAN CORPUSCULAR HEMOGLOBIN 29.4 pg (27.0-31.0); MEAN CORPUSCULAR HGB CONC 33.5 g/dL (32.0-36.0); MEAN PLATELET VOLUME 9.3 fL (7.9-10.8); MONOCYTES # (AUTO) 0.4 10^3/uL (0.0-1.0); MONOCYTES % (AUTO) 6.8 %; NEUTROPHILS # (AUTO) 2.9 10^3/uL (1.5-6.6); NEUTROPHILS % (AUTO) 56.7 %; PLT - PLATELET COUNT 191 10^3/uL (130-450); RED BLOOD COUNT 4.37 10^6/uL (4.20-5.40); RED CELL DISTRIBUTION WIDTH 12.8 % (12.0-15.0); WHITE BLOOD COUNT 5.1 x10^3/uL (4.8-10.8)
[2017-11-27 12:34] LABS: ALBUMIN 4.5 g/dL (3.2-5.5); ALBUMIN/GLOBULIN RATIO 1.5 (1.0-2.2); BILIRUBIN,TOTAL 0.6 mg/dL (0.2-1.0); CALCIUM 8.7 mg/dL (8.5-10.3); CREATININE 0.6 mg/dL (0.4-1.0); TOTAL PROTEIN 7.6 g/dL (6.7-8.2)
== END 2017-11-27 08:01 | disposition home or self-care (01) ==
LOC: LAB.N 08:00
PROVIDERS: ATTEND Family Medicine
DX: R10.9 Unspecified abdominal pain (principal)
CPT/HCPCS: 36415; 80053; 82150; 83690; 85025; 85651

== ENCOUNTER 2017-11-27 08:00 | Outpatient (CLI) | payer MEDICAID | END 2017-11-27 08:01 | disposition home or self-care (01) | LOC: LAB.R 08:00 | PROVIDERS: ATTEND Obstetrics & Gynecology | DX: Z11.3 Encounter for screening for infections with a predominantly sexual mode of transmission (principal); R10.9 Unspecified abdominal pain | CPT/HCPCS: 36415; 80053; 82150; 83690; 85025; 85651; 87491; 87591 ==

== ENCOUNTER 2018-01-18 19:58 | Emergency (ER) | payer MEDICAID ==
[2018-01-18] MEDS ORDERED: ONDANSETRON 4 MG/2 ML VIAL IVP STA (20:26)
[2018-01-18] MEDS ORDERED: HYDROmorphone 2 MG/ML VIAL IVP STA ×2 (20:26→21:25)
[2018-01-18] MEDS ORDERED: SODIUM CHLORIDE 0.9% 1,000 ML IV ONE (20:26)
[2018-01-18] MEDS ORDERED: LORazepam 2 MG/ML VIAL IVP STA (20:27)
--- NOTE | 2018-01-18 20:50 | ED Physician Documentation ---
History of Present Illness - Stated complaint Stated Complaint: HEAD PX - Chief complaint Chief Complaint: General - History obtained from History obtained from: Patient, Family - History of Present Illness Timing: Today Pain level max: 8 Pain level now: 8 Improved by: nothing Worsened by: light, noise, sounds Associated symptoms: nausea and vomiting - Additonal information Additional information: Patient has chronic migraines. Has been doing well with botox injections. Sees Dr. Park from neurology. Scheduled for next botox injection in 2 weeks. She states that this is a typical headache for her. Review of Systems Ten Systems: 10 systems reviewed and negative Constitutional: denies: Fever, Chills Eyes: reports: Photophobia Ears: denies: Ear pain Nose: denies: Rhinorrhea / runny nose, Congestion Throat: denies: Sore throat Cardiac: denies: Chest pain / pressure Respiratory: denies: Cough GI: reports: Nausea, Vomiting. 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: Other HEENT: Tonsil/Adenoidectomy - Present Medications Home Medications: Ambulatory Orders Medication Instructions Recorded Confirmed Ondansetron Odt [Zofran] 4 mg TL Q6H PRN #10 tablet 11/11/15 08/14/17 Cholecalciferol [Vitamin D3] 5,000 unit PO DAILY 02/09/16 08/14/17 Pregabalin [Lyrica] 100 mg PO BID 02/09/16 08/14/17 Quercetin 02/09/16 Epinephrine [Epipen 2-Olayinka] 0.3 mg IJ ONCE #2 units 04/18/16 08/14/17 Dextroamphetamine/Amphetamine 10 mg PO DAILY 07/31/16 08/14/17 [Adderall 10 mg Tablet] Temazepam [Restoril] 1 tab PO DAILY 07/31/16 08/14/17 Meclizine HCl 1 tab PO Q6H PRN #15 tab.chew 05/24/17 08/14/17 Mometasone Furoate [Nasonex] 1 spray NS BID #1 spray.pump 05/24/17 08/14/17 Magnesium 250 mg PO DAILY 06/21/17 08/14/17 Epinephrine [Epipen 2-Olayinka] 0.3 mg IJ ONCE PRN #1 auto.injct 08/14/17 Famotidine [Pepcid] 20 mg PO DAILY #30 tablet 01/18/18 - Allergies Allergies/Adverse Reactions: Allergies Allergy/AdvReac Type Severity Reaction Status Date / Time dihydroergotamine Allergy Severe Respiratory Verified 01/18/18 21:10 divalproex sodium Allergy Severe anaphylaxis Verified 01/18/18 21:10 [From Depakote] frovatriptan [Frovatriptan] Allergy Severe anaphylaxis Verified 01/18/18 21:10 metoclopramide HCl * Allergy Severe HTN Verified 01/18/18 21:10 [From Reglan] naratriptan HCl * Allergy Severe anaphylaxis Verified 01/18/18 21:10 [From Amerge] prochlorperazine edisylate * Allergy Severe HTN Verified 01/18/18 21:10 [From Compazine] prochlorperazine maleate * Allergy Severe HTN Verified 01/18/18 21:10 [From Compazine] promethazine HCl * Allergy Severe HTN Verified 01/18/18 21:10 [From Phenergan] rizatriptan benzoate * Allergy Severe anaphylaxis Verified 01/18/18 21:10 [From Maxalt] sumatriptan [From Imitrex] Allergy Severe anaphylaxis Verified 01/18/18 21:10 sumatriptan succinate * Allergy Severe anaphylaxis Verified 01/18/18 21:10 [From Imitrex] vancomycin Allergy Severe nicolette Verified 01/18/18 21:10 syndrome doxycycline Allergy Unknown Unknown Verified 01/18/18 21:10 Antihistamines - Alkylamine AdvReac Severe severe Verified 01/18/18 21:10 anxiety, wheezing, dizziness prednisone AdvReac Severe Hallucinati Verified 01/18/18 21:10 ons diphenhydramine HCl * AdvReac Unknown Unknown Verified 01/18/18 21:10 [From Benadryl] pentosan polysulfate sodium AdvReac Unknown Verified 01/18/18 21:10 [From Elmiron] tape Allergy Hives Uncoded 01/18/18 21:10 - Social History Does the pt smoke?: Yes Smoking Status: Current every day smoker Does the pt drink ETOH?: No Does the pt have substance abuse?: No - Immunizations Immunizations are current?: Yes - POLST Patient has POLST: No PD ED PE NORMAL - Vitals Vital signs reviewed: Yes - General General: Alert and oriented X 3, Other (Has a hoodie over her eyes. 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 requesting to go home.), considered differential, d/w patient, d/w family ED course: Patient is a 32-year-old female who presents to the emergency department with her typical migraine headache. Her headache protocol from her neurologist was followed and her symptoms improved. She will follow-up with her doctor for further prescriptions of pain medication including oxycodone for home. She did ask if I would change her Zantac to another H2 ly, will trial her on Pepcid. No evidence of subarachnoid hemorrhage, meningitis, encephalitis. Patient and family counseled regarding signs and symptoms for which I believe and urgent re-evaluation would be necessary. Patient with good understanding of and agreement to plan and is comfortable going home at this time This document was made in part using voice recognition software. While efforts are made to proofread this document, sound alike and grammatical errors may occur. Departure - Departure Disposition: 01 Home, Self Care Clinical Impression: Headache Qualifiers: Headache type: unspecified Headache chronicity pattern: acute headache Intractability: not intractable Qualified Code(s): R51 - Headache Condition: Good Instructions: ED Cephalgia Unspecified Follow-Up: Kyle Pool MD [Primary Care Provider] - Within 1 week Prescriptions: Famotidine [Pepcid] 20 mg PO DAILY #30 tablet Comments: Continue your medications at home. Return if you worsen. Stop the zantac and change to the pepcid. Discharge Date/Time: 01/18/18 22:11
[2018-01-18] MEDS ORDERED: MECLIZINE 12.5 MG TABLET PO STA (21:16)
[2018-01-18] MEDS ORDERED: KETOROLAC 60 MG/2 ML VIAL IVP STA (21:25)
[2018-01-18 21:56] VITALS: BP 123/86
[2018-01-18] MEDS ORDERED: oxyCODONE 5 MG TABLET PO STA (21:59)
== END 2018-01-18 22:11 | disposition home or self-care (01) ==
LOC: ED 19:58
DX: R51 Headache (principal); F17.200 Nicotine dependence, unspecified, uncomplicated
CPT/HCPCS: 96374; 96375; 99283; 99284; A9270; J1170; J2060

== ENCOUNTER 2018-02-10 23:08 | Emergency (ER) | payer MEDICAID ==
--- NOTE | 2018-02-11 00:22 | ED Physician Documentation ---
PD HPI HEADACHE - Stated complaint Stated Complaint: MIGRAINE - Chief complaint Chief Complaint: Neuro - History obtained from History obtained from: Patient - History of Present Illness Timing - onset: Enter time (14:00), Today Timing - onset during: Rest Timing - details: Gradual onset Pain level now: 9 Worst headache ever?: No: Worst headache ever? Location: Front, Right, Left Quality: Throbbing Associated symptoms: Nausea. No: Fever, Vomiting, Weakness Improved by: Dark room Worsened by: Light Similar symptoms before: Diagnosis (migraine) - Additional information Additional information: "one of my menstrual migraines" (per patient), typical of her migraine headaches. She says that she contacts her neurologist when she is due for her period and gets oxycodone prescribed for the migraine headaches that tend to be associated with her menses. However, she says this period is earlier than expected and thus she did not have time to contact her neurologist. Review of Systems Constitutional: denies: Fever, Chills, Sweats Eyes: reports: Photophobia Cardiac: reports: Reviewed and negative Respiratory: reports: Reviewed and negative GI: reports: Nausea. denies: Abdominal Pain, Vomiting : denies: Now EGA Neurologic: reports: Headache. 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: Other HEENT: Tonsil/Adenoidectomy - Present Medications Home Medications: Ambulatory Orders Medication Instructions Recorded Confirmed Ondansetron Odt [Zofran] 4 mg TL Q6H PRN #10 tablet 11/11/15 08/14/17 Cholecalciferol [Vitamin D3] 5,000 unit PO DAILY 02/09/16 08/14/17 Pregabalin [Lyrica] 100 mg PO BID 02/09/16 08/14/17 Quercetin 02/09/16 Epinephrine [Epipen 2-Olayinka] 0.3 mg IJ ONCE #2 units 04/18/16 08/14/17 Dextroamphetamine/Amphetamine 10 mg PO DAILY 07/31/16 08/14/17 [Adderall 10 mg Tablet] Temazepam [Restoril] 1 tab PO DAILY 07/31/16 08/14/17 Meclizine HCl 1 tab PO Q6H PRN #15 tab.chew 05/24/17 08/14/17 Mometasone Furoate [Nasonex] 1 spray NS BID #1 spray.pump 05/24/17 08/14/17 Magnesium 250 mg PO DAILY 06/21/17 08/14/17 Epinephrine [Epipen 2-Olayinka] 0.3 mg IJ ONCE PRN #1 auto.injct 08/14/17 Famotidine [Pepcid] 20 mg PO DAILY #30 tablet 01/18/18 - Allergies Allergies/Adverse Reactions: Allergies Allergy/AdvReac Type Severity Reaction Status Date / Time dihydroergotamine Allergy Severe Respiratory Verified 01/18/18 21:10 divalproex sodium Allergy Severe anaphylaxis Verified 01/18/18 21:10 [From Depakote] frovatriptan [Frovatriptan] Allergy Severe anaphylaxis Verified 01/18/18 21:10 metoclopramide HCl * Allergy Severe HTN Verified 01/18/18 21:10 [From Reglan] naratriptan HCl * Allergy Severe anaphylaxis Verified 01/18/18 21:10 [From Amerge] prochlorperazine edisylate * Allergy Severe HTN Verified 01/18/18 21:10 [From Compazine] prochlorperazine maleate * Allergy Severe HTN Verified 01/18/18 21:10 [From Compazine] promethazine HCl * Allergy Severe HTN Verified 01/18/18 21:10 [From Phenergan] rizatriptan benzoate * Allergy Severe anaphylaxis Verified 01/18/18 21:10 [From Maxalt] sumatriptan [From Imitrex] Allergy Severe anaphylaxis Verified 01/18/18 21:10 sumatriptan succinate * Allergy Severe anaphylaxis Verified 01/18/18 21:10 [From Imitrex] vancomycin Allergy Severe nicolette Verified 01/18/18 21:10 syndrome doxycycline Allergy Unknown Unknown Verified 01/18/18 21:10 Antihistamines - Alkylamine AdvReac Severe severe Verified 01/18/18 21:10 anxiety, wheezing, dizziness prednisone AdvReac Severe Hallucinati Verified 01/18/18 21:10 ons diphenhydramine HCl * AdvReac Unknown Unknown Verified 01/18/18 21:10 [From Benadryl] pentosan polysulfate sodium AdvReac Unknown Verified 01/18/18 21:10 [From Elmiron] tape Allergy Hives Uncoded 01/18/18 21:10 - Social History Does the pt smoke?: Yes Smoking Status: Current every day smoker Does the pt drink ETOH?: No Does the pt have substance abuse?: No - Immunizations Immunizations are current?: Yes - POLST Patient has POLST: No PD ED PE NORMAL - Vitals Vital signs reviewed: Yes - General General: Alert and oriented X 3, Well developed/nourished, Other (appears uncomfortable) - HEENT HEENT: PERRL, EOMI, Moist mucous membranes - Neck Neck: Supple, no meningeal sign - Cardiac Cardiac: RRR, No murmur - Respiratory Respiratory: No respiratory distress, Clear bilaterally - Abdomen Abdomen: Soft, Non tender - Neuro Neuro: Alert and oriented X 3, air quality engineer 2-12 intact, No motor deficit, No sensory deficit, Normal speech Eye Opening: Spontaneous Motor: Obeys Commands Verbal: Oriented GCS Score: 15 Results - Vitals Vitals: Vital Signs - 24 hr 02/10/18 02/11/18 23:23 02:17 Temperature 36.6 C Heart Rate 64 64 Respiratory 18 18 Rate Blood Pressure 113/75 114/78 O2 Saturation 97 98 Oxygen O2 Source Room air PD MEDICAL DECISION MAKING - ED course Complexity details: reviewed old records, re-evaluated patient, considered differential, d/w patient ED course: patient's protocol followed, and she had good relief of symptoms after dilaudid 1mg + 1 mg IV, ativan 1 mg IV, zofran 8 mg IV, toradol 30mg IV, and 1 liter NS IV - Sepsis Event Vital Signs: Vital Signs - 24 hr 02/10/18 02/11/18 23:23 02:17 Temperature 36.6 C Heart Rate 64 64 Respiratory 18 18 Rate Blood Pressure 113/75 114/78 O2 Saturation 97 98 Oxygen O2 Source Room air Departure - Departure Disposition: 01 Home, Self Care Clinical Impression: Migraine Condition: Good Instructions: ED Headache Migraine Follow-Up: Kyle Pool MD [Primary Care Provider] - Discharge Date/Time: 02/11/18 02:17
[2018-02-11] MEDS ORDERED: LORazepam 2 MG/ML VIAL IVP STA (00:32)
[2018-02-11] MEDS ORDERED: SODIUM CHLORIDE 0.9% 1,000 ML IV STA (00:32)
[2018-02-11] MEDS ORDERED: HYDROmorphone 2 MG/ML VIAL IVP STA ×2 (00:32→01:49)
[2018-02-11] MEDS ORDERED: ONDANSETRON 4 MG/2 ML VIAL IVP STA (00:33)
[2018-02-11] MEDS ORDERED: KETOROLAC 60 MG/2 ML VIAL IVP STA (00:33)
[2018-02-11 02:18] VITALS: BP 114/78
== END 2018-02-11 02:17 | disposition home or self-care (01) ==
LOC: ED 23:08
DX: G43.909 Migraine, unspecified, not intractable, without status migrainosus (principal); F17.200 Nicotine dependence, unspecified, uncomplicated
CPT/HCPCS: 96361; 96374; 96375; 96376; 99283; 99284; J1170; J2060

== ENCOUNTER 2018-04-20 22:32 | Emergency (ER) | payer MEDICAID ==
--- NOTE | 2018-04-20 23:17 | ED Physician Documentation ---
PD HPI HEADACHE - Stated complaint Stated Complaint: MADSEN - Chief complaint Chief Complaint: Neuro - History obtained from History obtained from: Patient - History of Present Illness Timing - onset: How many days ago (2) Timing - onset during: Light activity Timing - duration: Days (2) Timing - details: Gradual onset, Still present, Constant Worst headache ever?: No: Worst headache ever? Location: Back, Right Quality: Throbbing, Aching. No: Thunderclap Associated symptoms: Nausea, Vomiting, Numbness (right face, c/w migraines. Also having right TMJ pain.). No: Fever, Weakness, Eye pain Improved by: Dark room. No: Meds Worsened by: Light, Noise Contributing factors: No: Anticoagulated, Recent illness, Trauma Similar symptoms before: Diagnosis (Migraines, cluster headaches, and TMJ pain) Recently seen: Not recently seen (due to see her Neurologist with Botox injection this coming week.) Review of Systems Constitutional: denies: Fever, Chills Eyes: reports: Photophobia. denies: Loss of vision Nose: denies: Rhinorrhea / runny nose, Congestion Throat: denies: Dental pain / toothache (but is having right TMJ pain worse than usual, with increased popping on jaw opening), Oral lesions / sores, Sore throat GI: reports: Nausea, Vomiting Skin: denies: Rash, Lesions Neurologic: reports: Headache. 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: Other HEENT: Tonsil/Adenoidectomy - Present Medications Home Medications: Ambulatory Orders Medication Instructions Recorded Confirmed Ondansetron Odt [Zofran] 4 mg TL Q6H PRN #10 tablet 11/11/15 08/14/17 Cholecalciferol [Vitamin D3] 5,000 unit PO DAILY 02/09/16 08/14/17 Pregabalin [Lyrica] 100 mg PO BID 02/09/16 08/14/17 Quercetin 02/09/16 Epinephrine [Epipen 2-Olayinka] 0.3 mg IJ ONCE #2 units 04/18/16 08/14/17 Dextroamphetamine/Amphetamine 10 mg PO DAILY 07/31/16 08/14/17 [Adderall 10 mg Tablet] Temazepam [Restoril] 1 tab PO DAILY 07/31/16 08/14/17 Meclizine HCl 1 tab PO Q6H PRN #15 tab.chew 05/24/17 08/14/17 Mometasone Furoate [Nasonex] 1 spray NS BID #1 spray.pump 05/24/17 08/14/17 Magnesium 250 mg PO DAILY 06/21/17 08/14/17 Epinephrine [Epipen 2-Olayinka] 0.3 mg IJ ONCE PRN #1 auto.injct 08/14/17 Famotidine [Pepcid] 20 mg PO DAILY #30 tablet 01/18/18 Ondansetron Odt [Zofran] 4 - 8 mg TL Q6H PRN #20 tablet 04/21/18 - Allergies Allergies/Adverse Reactions: Allergies Allergy/AdvReac Type Severity Reaction Status Date / Time dihydroergotamine Allergy Severe Respiratory Verified 04/20/18 22:39 divalproex sodium Allergy Severe anaphylaxis Verified 04/20/18 22:39 [From Depakote] frovatriptan [Frovatriptan] Allergy Severe anaphylaxis Verified 04/20/18 22:39 metoclopramide HCl * Allergy Severe HTN Verified 04/20/18 22:39 [From Reglan] naratriptan HCl * Allergy Severe anaphylaxis Verified 04/20/18 22:39 [From Amerge] prochlorperazine edisylate * Allergy Severe HTN Verified 04/20/18 22:39 [From Compazine] prochlorperazine maleate * Allergy Severe HTN Verified 04/20/18 22:39 [From Compazine] promethazine HCl * Allergy Severe HTN Verified 04/20/18 22:39 [From Phenergan] rizatriptan benzoate * Allergy Severe anaphylaxis Verified 04/20/18 22:39 [From Maxalt] sumatriptan [From Imitrex] Allergy Severe anaphylaxis Verified 04/20/18 22:39 sumatriptan succinate * Allergy Severe anaphylaxis Verified 04/20/18 22:39 [From Imitrex] vancomycin Allergy Severe nicolette Verified 04/20/18 22:39 syndrome doxycycline Allergy Unknown Unknown Verified 04/20/18 22:39 Antihistamines - Alkylamine AdvReac Severe severe Verified 04/20/18 22:39 anxiety, wheezing, dizziness prednisone AdvReac Severe Hallucinati Verified 04/20/18 22:39 ons diphenhydramine HCl * AdvReac Unknown Unknown Verified 04/20/18 22:39 [From Benadryl] pentosan polysulfate sodium AdvReac Unknown Verified 04/20/18 22:39 [From Elmiron] tape Allergy Hives Uncoded 04/20/18 22:39 - Social History Does the pt smoke?: Yes Smoking Status: Current every day smoker Does the pt drink ETOH?: No Does the pt have substance abuse?: No - Immunizations Immunizations are current?: Yes - POLST Patient has POLST: No PD ED PE NORMAL - Vitals Vital signs reviewed: Yes - General General: Alert and oriented X 3, Well developed/nourished, Other (appears in pain and very light sensitive. 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 Park, Neurology, with suggested treatment plan for the patient. She is given these meds as suggested with good improvement in her headache. She has multiple allergies to migraine specific meds. Also given Ativan for muscle spasm at TMJ. Improved enough and feeling comfortable for discharge. ) - Sepsis Event Vital Signs: Vital Signs - 24 hr 04/20/18 04/21/18 04/21/18 22:35 00:12 00:48 Temperature 98.7 C H Heart Rate 97 81 75 Respiratory 18 18 16 Rate Blood Pressure 128/89 H 107/72 114/73 O2 Saturation 98 100 100 Oxygen O2 Source Simple Mask Oxygen Flow Rate 10 Departure - Departure Disposition: 01 Home, Self Care Clinical Impression: Migraine Qualifiers: Migraine type: without aura Status migrainosus presence: without status migrainosus Intractability: not intractable Qualified Code(s): G43.009 - Migraine without aura, not intractable, without status migrainosus Condition: Stable Record reviewed to determine appropriate education?: Yes Instructions: ED Headache Migraine Follow-Up: Kyle Pool MD [Primary Care Provider] - Prescriptions: Ondansetron Odt [Zofran] 4 - 8 mg TL Q6H PRN #20 tablet PRN Reason: Nausea / Vomiting Comments: Continue usual medications. Follow-up with your neurologist for Botox this coming week. Return as needed.
[2018-04-20] MEDS ORDERED: SODIUM CHLORIDE 0.9% 1,000 ML IV ONE (23:25)
[2018-04-20] MEDS ORDERED: KETOROLAC 60 MG/2 ML VIAL IVP STA (23:25)
[2018-04-20] MEDS ORDERED: HYDROmorphone 2 MG/ML VIAL IVP STA (23:25)
[2018-04-20] MEDS ORDERED: ONDANSETRON 4 MG/2 ML VIAL IVP STA (23:25)
[2018-04-21] MEDS ORDERED: LORazepam 2 MG/ML VIAL IVP STA (00:24)
[2018-04-21 00:49] VITALS: BP 114/73
== END 2018-04-21 00:58 | disposition home or self-care (01) ==
LOC: ED 22:32
DX: G43.009 Migraine without aura, not intractable, without status migrainosus (principal); F17.200 Nicotine dependence, unspecified, uncomplicated
CPT/HCPCS: 96361; 96374; 96375; 99283; 99284; J1170; J2060

== ENCOUNTER 2018-06-04 12:23 | Emergency (ER) | payer MEDICAID ==
[2018-06-04] MEDS ORDERED: KETOROLAC 60 MG/2 ML VIAL IVP STA (15:32)
[2018-06-04] MEDS ORDERED: ONDANSETRON 4 MG/2 ML VIAL IVP STA (15:32)
[2018-06-04] MEDS ORDERED: HYDROmorphone 1 MG/ML CARPUJECT IVP STA (15:32)
[2018-06-04] MEDS ORDERED: SODIUM CHLORIDE 0.9% 1,000 ML IV ONE (15:32)
--- NOTE | 2018-06-04 15:37 | ED Physician Documentation ---
History of Present Illness - Stated complaint Stated Complaint: MIGRAINE - Chief complaint Chief Complaint: Neuro - Additonal information Additional information: hx from pt 33 f long hx migraines - complex with focal neuro deficits associated her neurologist is Dr Park at [facility] and she has a migraine care plan stating to give toradol 30 dilaudid 2 zofran 4 and oxygen has had a severe migraine MADSEN today, right sided with R eye drooping and R arm weakness no fever now - had fever and cough recently but better now had chest pain and abd pain for many hr yesterday but not now denies preg Review of Systems Constitutional: denies: Fever Throat: denies: Sore throat Cardiac: denies: Chest pain / pressure Respiratory: denies: Dyspnea GI: denies: Abdominal Pain Musculoskeletal: denies: Neck pain, Back pain Neurologic: reports: Focal weakness (R face and arm not new for her migraines), Headache. 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: Other HEENT: Tonsil/Adenoidectomy - Present Medications Home Medications: Ambulatory Orders Medication Instructions Recorded Confirmed Ondansetron Odt [Zofran] 4 mg TL Q6H PRN #10 tablet 11/11/15 08/14/17 Cholecalciferol [Vitamin D3] 5,000 unit PO DAILY 02/09/16 08/14/17 Pregabalin [Lyrica] 100 mg PO BID 02/09/16 08/14/17 Quercetin 02/09/16 Epinephrine [Epipen 2-Olyainka] 0.3 mg IJ ONCE #2 units 04/18/16 08/14/17 Dextroamphetamine/Amphetamine 10 mg PO DAILY 07/31/16 08/14/17 [Adderall 10 mg Tablet] Temazepam [Restoril] 1 tab PO DAILY 07/31/16 08/14/17 Meclizine HCl 1 tab PO Q6H PRN #15 tab.chew 05/24/17 08/14/17 Mometasone Furoate [Nasonex] 1 spray NS BID #1 spray.pump 05/24/17 08/14/17 Magnesium 250 mg PO DAILY 06/21/17 08/14/17 Epinephrine [Epipen 2-Olayinka] 0.3 mg IJ ONCE PRN #1 auto.injct 08/14/17 Famotidine [Pepcid] 20 mg PO DAILY #30 tablet 01/18/18 Ondansetron Odt [Zofran] 4 - 8 mg TL Q6H PRN #20 tablet 04/21/18 - Allergies Allergies/Adverse Reactions: Allergies Allergy/AdvReac Type Severity Reaction Status Date / Time dihydroergotamine Allergy Severe Respiratory Verified 04/20/18 22:39 divalproex sodium Allergy Severe anaphylaxis Verified 04/20/18 22:39 [From Depakote] frovatriptan [Frovatriptan] Allergy Severe anaphylaxis Verified 04/20/18 22:39 metoclopramide HCl * Allergy Severe HTN Verified 04/20/18 22:39 [From Reglan] naratriptan HCl * Allergy Severe anaphylaxis Verified 04/20/18 22:39 [From Amerge] prochlorperazine edisylate * Allergy Severe HTN Verified 04/20/18 22:39 [From Compazine] prochlorperazine maleate * Allergy Severe HTN Verified 04/20/18 22:39 [From Compazine] promethazine HCl * Allergy Severe HTN Verified 04/20/18 22:39 [From Phenergan] rizatriptan benzoate * Allergy Severe anaphylaxis Verified 04/20/18 22:39 [From Maxalt] sumatriptan [From Imitrex] Allergy Severe anaphylaxis Verified 04/20/18 22:39 sumatriptan succinate * Allergy Severe anaphylaxis Verified 04/20/18 22:39 [From Imitrex] vancomycin Allergy Severe nicolette Verified 04/20/18 22:39 syndrome doxycycline Allergy Unknown Unknown Verified 04/20/18 22:39 Antihistamines - Alkylamine AdvReac Severe severe Verified 04/20/18 22:39 anxiety, wheezing, dizziness prednisone AdvReac Severe Hallucinati Verified 04/20/18 22:39 ons diphenhydramine HCl * AdvReac Unknown Unknown Verified 04/20/18 22:39 [From Benadryl] pentosan polysulfate sodium AdvReac Unknown Verified 04/20/18 22:39 [From Elmiron] tape Allergy Hives Uncoded 04/20/18 22:39 - Social History Does the pt smoke?: No Smoking Status: Former smoker Does the pt drink ETOH?: No Does the pt have substance abuse?: No Substance Use and Type: Other - Immunizations Immunizations are current?: Yes - POLST Patient has POLST: No PD ED PE NORMAL - Vitals Vital signs reviewed: Yes - General General: Alert and oriented X 3 - HEENT HEENT: PERRL - Neck Neck: Supple, no meningeal sign, No bruit - Cardiac Cardiac: RRR - Respiratory Respiratory: No respiratory distress - Abdomen Abdomen: Soft, Non tender - Neuro Neuro: Alert and oriented X 3, manager shift 2-12 intact (no facial droop now). No: No motor deficit (mild weakness R arm) Eye Opening: Spontaneous Motor: Obeys Commands Verbal: Oriented GCS Score: 15 Results - Vitals Vitals: Vital Signs - 24 hr 06/04/18 06/04/18 06/04/18 12:24 16:27 17:38 Temperature 36.8 C Heart Rate 86 67 Respiratory 16 16 20 Rate Blood Pressure 122/81 H 108/91 H 118/93 H O2 Saturation 98 100 99 Oxygen O2 Source Room air Oxygen Flow Rate 3 - Labs Labs: Laboratory Tests 06/04/18 06/04/18 06/04/18 15:54 15:54 15:54 WBC 5.6 RBC 4.49 Hgb 13.4 Hct 39.5 MCV 88.0 MCH 29.9 MCHC 34.0 RDW 11.8 L Plt Count 199 MPV 9.1 Neut # (Auto) 2.8 Lymph # (Auto) 2.4 Cataño # (Auto) 0.4 Eos # (Auto) 0.0 Baso # (Auto) 0.1 Absolute Nucleated RBC 0.01 Nucleated RBC % 0.1 Sodium 137 Potassium 3.9 Chloride 106 Carbon Dioxide 23 Anion Gap 8.0 BUN 13 Creatinine 0.6 Estimated GFR (MDRD) 117 Glucose 89 Calcium 8.9 Total Bilirubin 0.4 AST 17 ALT 12 Alkaline Phosphatase 48 Troponin I < 0.04 Total Protein 7.6 Albumin 4.6 Globulin 3.0 Albumin/Globulin Ratio 1.5 Lipase 33 PD MEDICAL DECISION MAKING - ED course ED course: does have some weakness hx same with her migraines do not feel more imaging is indicated at at this time as sx are not new does have a care plan from her neuro so followed that toradol 30 dilaudid 2 zofran 4 O2 gave pt everything on her neuro care plan she was not initially particularly anxious but after meds requested xanax or ativan as that is not on the neuro plan and is not typically part of migraine management I recommended not using that class of medication she is going to call her neurologist for further advice in any case her MADSEN is improved and she has no facial droop with talking and is using both hands to text has xanax rx at home she can take will dc boyfriend to drive addendum - her neurologist Dr Park call and identified himself and advised ativan 0.5 mg IV and will update her care plan accordingly after the ativan she felt much better and left ambulatory holding dc papers in one hand phone in the other talking and without assistance Departure - Departure Disposition: 01 Home, Self Care Clinical Impression: Complicated migraine Condition: Good Instructions: ED Headache Migraine Follow-Up: Kyle Pool MD [Primary Care Provider] - Comments: Your headache and weakness have improved. Given that you have had 9 other CTs at [facility] over the last 4 years and since your weakness is improving, I do not think more CT scans are needed today But I do recommend you follow up with your neurologist for a recheck and any further evaluation he/she feels appropriate No driving for the next 12 hr after receiving IV narcotics. Forms: Activity restrictions
[2018-06-04 16:08] LABS: BASOPHILS # (AUTO) 0.1 10^3/uL (0.0-0.1); BASOPHILS % (AUTO) 0.9 %; EOSINOPHILS % (AUTO) 0.6 %; HGB - HEMOGLOBIN 13.4 g/dL (12.0-16.0); LYMPHOCYTES # (AUTO) 2.4 10^3/uL (1.5-3.5); LYMPHOCYTES % (AUTO) 42.6 %; MEAN CORPUSCULAR HEMOGLOBIN 29.9 pg (27.0-31.0); MEAN PLATELET VOLUME 9.1 fL (7.9-10.8); MONOCYTES # (AUTO) 0.4 10^3/uL (0.0-1.0); MONOCYTES % (AUTO) 6.4 %; NEUTROPHILS # (AUTO) 2.8 10^3/uL (1.5-6.6); NEUTROPHILS % (AUTO) 49.5 %; PLT - PLATELET COUNT 199 10^3/uL (130-450); RED BLOOD COUNT 4.49 10^6/uL (4.20-5.40); RED CELL DISTRIBUTION WIDTH 11.8 % (12.0-15.0); WHITE BLOOD COUNT 5.6 x10^3/uL (4.8-10.8)
[2018-06-04 16:22] LABS: ALBUMIN 4.6 g/dL (3.2-5.5); ALBUMIN/GLOBULIN RATIO 1.5 (1.0-2.2); BILIRUBIN,TOTAL 0.4 mg/dL (0.2-1.0); CALCIUM 8.9 mg/dL (8.5-10.3); CREATININE 0.6 mg/dL (0.4-1.0); TOTAL PROTEIN 7.6 g/dL (6.7-8.2)
[2018-06-04] MEDS ORDERED: LORazepam 2 MG/ML VIAL IVP STA (17:09)
[2018-06-04 17:39] VITALS: BP 118/93
== END 2018-06-04 17:40 | disposition home or self-care (01) ==
LOC: ED 12:23
DX: G43.109 Migraine with aura, not intractable, without status migrainosus (principal); Z86.73 Personal history of transient ischemic attack (TIA), and cerebral infarction without residual deficits; Z87.891 Personal history of nicotine dependence
CPT/HCPCS: 36415; 80053; 83690; 84484; 85025; 96361; 96374; 96375; 99283; 99284; J1170; J2060

== ENCOUNTER 2018-06-27 11:13 | Outpatient (CLI) | payer MEDICAID | END 2018-06-27 11:14 | disposition home or self-care (01) | LOC: RT.N 11:13 | PROVIDERS: ATTEND Family Medicine | DX: R07.9 Chest pain, unspecified (principal) | CPT/HCPCS: 93005 ==

== ENCOUNTER 2018-07-06 04:26 | Emergency (ER) | payer MEDICAID ==
[2018-07-06] MEDS ORDERED: ONDANSETRON 4 MG/2 ML VIAL IVP STA ×2 (04:37→05:37)
[2018-07-06] MEDS ORDERED: KETOROLAC 60 MG/2 ML VIAL IVP STA ×2 (04:37→05:39)
[2018-07-06] MEDS ORDERED: HYDROmorphone 1 MG/ML CARPUJECT IVP STA ×2 (04:37→06:26)
--- NOTE | 2018-07-06 04:38 | ED Physician Documentation ---
PD HPI HEADACHE - Stated complaint Stated Complaint: HEADACHE - Chief complaint Chief Complaint: General - History obtained from History obtained from: Patient, Family - History of Present Illness Timing - onset: Last night Timing - onset during: Rest Timing - details: Abrupt onset, Constant Pain level max: 10 Pain level now: 10 Worst headache ever?: No: Worst headache ever? Location: Front, Right, Left Quality: Throbbing, Like head is exploding Associated symptoms: Nausea, Vomiting Improved by: Dark room, Quiet Worsened by: Light, Noise Recently seen: Emergency Dept (last month and two months ago for MADSEN; well-known to this ED for MADSEN c/o) Review of Systems Constitutional: reports: Reviewed and negative Eyes: reports: Photophobia GI: reports: Nausea, Vomiting. denies: Abdominal Pain Neurologic: reports: Confused, Headache. 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 : None HEENT: None Psych: Depression, Anxiety Musculoskeletal: Osteoarthritis, Fibromyalgia Derm: None - Past Surgical History Past Surgical History: Yes General: Appendectomy /CARPENTER REFRIGERATOR: Other HEENT: Tonsil/Adenoidectomy - Present Medications Home Medications: Ambulatory Orders Medication Instructions Recorded Confirmed Cholecalciferol [Vitamin D3] 5,000 unit PO DAILY 02/09/16 06/04/18 Pregabalin [Lyrica] 100 mg PO TID 02/09/16 06/04/18 Epinephrine [Epipen 2-Olayinka] 0.3 mg IJ ONCE #2 units 04/18/16 06/04/18 Temazepam [Restoril] 1 tab PO DAILY 07/31/16 08/14/17 Magnesium 250 mg PO DAILY 06/21/17 06/04/18 Epinephrine [Epipen 2-Olayinka] 0.3 mg IJ ONCE PRN #1 auto.injct 08/14/17 06/04/18 Famotidine [Pepcid] 20 mg PO DAILY #30 tablet 01/18/18 06/04/18 lamoTRIgine [Subvenite] 150 mg ORAL DAILY 06/04/18 06/04/18 - Allergies Allergies/Adverse Reactions: Allergies Allergy/AdvReac Type Severity Reaction Status Date / Time dihydroergotamine Allergy Severe Respiratory Verified 07/06/18 04:35 divalproex sodium Allergy Severe anaphylaxis Verified 07/06/18 04:35 [From Depakote] frovatriptan [Frovatriptan] Allergy Severe anaphylaxis Verified 07/06/18 04:35 metoclopramide HCl * Allergy Severe HTN Verified 07/06/18 04:35 [From Reglan] naratriptan HCl * Allergy Severe anaphylaxis Verified 07/06/18 04:35 [From Amerge] prochlorperazine edisylate * Allergy Severe HTN Verified 07/06/18 04:35 [From Compazine] prochlorperazine maleate * Allergy Severe HTN Verified 07/06/18 04:35 [From Compazine] promethazine HCl * Allergy Severe HTN Verified 07/06/18 04:35 [From Phenergan] rizatriptan benzoate * Allergy Severe anaphylaxis Verified 07/06/18 04:35 [From Maxalt] sumatriptan [From Imitrex] Allergy Severe anaphylaxis Verified 07/06/18 04:35 sumatriptan succinate * Allergy Severe anaphylaxis Verified 04/20/18 22:39 [From Imitrex] vancomycin Allergy Severe nicolette Verified 04/20/18 22:39 syndrome doxycycline Allergy Unknown Unknown Verified 04/20/18 22:39 Antihistamines - Alkylamine AdvReac Severe severe Verified 04/20/18 22:39 anxiety, wheezing, dizziness prednisone AdvReac Severe Hallucinati Verified 04/20/18 22:39 ons diphenhydramine HCl * AdvReac Unknown Unknown Verified 04/20/18 22:39 [From Benadryl] pentosan polysulfate sodium AdvReac Unknown Verified 04/20/18 22:39 [From Elmiron] tape Allergy Hives Uncoded 04/20/18 22:39 - Social History Does the pt smoke?: No Smoking Status: Former smoker Does the pt drink ETOH?: No Does the pt have substance abuse?: No - Immunizations Immunizations are current?: Yes - POLST Patient has POLST: No PD ED PE NORMAL - Vitals Vital signs reviewed: Yes - General General: Alert and oriented X 3, Well developed/nourished, Other (moaning and crying in pain, appears anxious) - HEENT HEENT: PERRL, EOMI, Moist mucous membranes - Neck Neck: Supple, no meningeal sign - Cardiac Cardiac: RRR, No murmur - Respiratory Respiratory: No respiratory distress, Clear bilaterally - Abdomen Abdomen: Soft, Non tender - Neuro Neuro: Alert and oriented X 3, senior risk manager 2-12 intact, No motor deficit, No sensory deficit, Normal speech Eye Opening: Spontaneous Motor: Obeys Commands Verbal: Oriented GCS Score: 15 Results - Vitals Vitals: Vital Signs - 24 hr 07/06/18 07/06/18 07/06/18 04:33 05:24 06:10 Temperature 36.0 C L Heart Rate 90 66 63 Respiratory 22 18 18 Rate Blood Pressure 126/85 H 104/82 H 105/72 O2 Saturation 100 100 96 07/06/18 07/06/18 07:09 08:45 Temperature Heart Rate 66 76 Respiratory 16 15 Rate Blood Pressure 106/73 99/65 O2 Saturation 100 95 Oxygen O2 Source Room air PD MEDICAL DECISION MAKING - ED course Complexity details: reviewed old records, reviewed results, re-evaluated patient, considered differential, d/w patient, d/w family ED course: patient and family express concern that this headache is different location than previous, and that she is hallucinating (per patient). after further discussion, she says she has discussed the hallucinations with both her neurologist and psychiatrist, and that her neurologist is working on ordering MRI, indicating this is not an acute symptom. After usual regimen of toradol, fluids, dilaudid, and zofran, she was improved but still moaning at times and c/o pain and nausea. second dose of zofran given along with 0.5 mg dilaudid and ativan. on reevaluation, she is very drowsy, awakens to voice although falls asleep easily during conversation. she was able to participate in discussion regarding plan to discharge home and both she and her expressed understanding of, and comfort with, this plan. Departure - Departure Disposition: 01 Home, Self Care Clinical Impression: Headache Qualifiers: Headache type: unspecified Headache chronicity pattern: acute headache Intractability: not intractable Qualified Code(s): R51 - Headache Condition: Good Instructions: ED Cephalgia Unspecified Comments: Follow up with your neurologist; call to arrange for next available appointment. Discharge Date/Time: 07/06/18 08:45
[2018-07-06] MEDS ORDERED: SODIUM CHLORIDE 0.9% 1,000 ML IV STA (04:39)
[2018-07-06] MEDS ORDERED: LORazepam 2 MG/ML VIAL IVP STA (06:26)
[2018-07-06 08:47] VITALS: BP 99/65
== END 2018-07-06 08:45 | disposition home or self-care (01) ==
LOC: ED 04:26
DX: R51 Headache (principal); R44.3 Hallucinations, unspecified; R11.0 Nausea; Z86.73 Personal history of transient ischemic attack (TIA), and cerebral infarction without residual deficits; Z87.891 Personal history of nicotine dependence
CPT/HCPCS: 96361; 96374; 96375; 96376; 99284; J1170; J2060

== ENCOUNTER 2018-07-30 08:00 | Outpatient (CLI) | payer MEDICAID ==
[2018-07-30 14:38] LABS: BASOPHILS % (AUTO) 0.8 %; EOSINOPHILS # (AUTO) 0.1 10^3/uL (0.0-0.7); EOSINOPHILS % (AUTO) 2.3 %; LYMPHOCYTES # (AUTO) 2.2 10^3/uL (1.5-3.5); LYMPHOCYTES % (AUTO) 46.1 %; MEAN CORPUSCULAR HEMOGLOBIN 30.7 pg (27.0-31.0); MEAN CORPUSCULAR HGB CONC 34.3 g/dL (32.0-36.0); MEAN CORPUSCULAR VOLUME 89.7 fL (81.0-99.0); MEAN PLATELET VOLUME 9.3 fL (7.9-10.8); MONOCYTES # (AUTO) 0.3 10^3/uL (0.0-1.0); MONOCYTES % (AUTO) 7.2 %; NEUTROPHILS # (AUTO) 2.1 10^3/uL (1.5-6.6); NEUTROPHILS % (AUTO) 43.6 %; PLT - PLATELET COUNT 221 10^3/uL (130-450); RED BLOOD COUNT 4.57 10^6/uL (4.20-5.40); RED CELL DISTRIBUTION WIDTH 12.8 % (12.0-15.0); WHITE BLOOD COUNT 4.8 x10^3/uL (4.8-10.8)
[2018-07-30 15:03] LABS: ALBUMIN 4.7 g/dL (3.2-5.5); ALBUMIN/GLOBULIN RATIO 1.5 (1.0-2.2); BILIRUBIN,TOTAL 0.5 mg/dL (0.2-1.0); CREATININE 0.6 mg/dL (0.4-1.0); TOTAL PROTEIN 7.9 g/dL (6.7-8.2)
== END 2018-07-30 23:59 | disposition home or self-care (01) ==
LOC: LAB.N 08:00
PROVIDERS: ATTEND Family Medicine
DX: R10.12 Left upper quadrant pain (principal)
CPT/HCPCS: 36415; 80053; 82150; 83690; 85025; 85651

== ENCOUNTER 2018-07-31 00:01 | Outpatient (CLI) | payer MEDICAID ==
--- NOTE | 2018-07-31 01:07 | Ultrasound Report ---
Reason: TRANSAMINASES,SERUM,ELEVATED/HX OF PANCREATITIS,AC Procedure Date: 07/31/2018 Accession Number: [id number] / [id number] Procedure: US - Abdomen Complete CPT Code: FULL RESULT: EXAM: ABDOMEN ULTRASOUND EXAM DATE: 07/31/2018 12:05 AM. CLINICAL HISTORY: TRANSAMINASES,SERUM,ELEVATED/HX OF PANCREATITIS,AC. COMPARISON: ABDOMEN/PELVIS W/ 03/26/2017 9:43 PM. TECHNIQUE: Real-time scanning was performed with static images obtained. FINDINGS: Liver: Normal in size and echotexture. 15.7 cm. Main portal vein flow: Hepatopetal. Gallbladder: Normal. No stones, wall thickening, or sonographic Olson's sign. Biliary System: Common bile duct measures 5 mm. No intrahepatic or extrahepatic ductal dilatation. Pancreas: Visualized portion is unremarkable. Kidneys: Right: 10.2 cm longitudinally. Normal. No contour-deforming mass, stones, or hydronephrosis. Left: 10.3 cm longitudinally. Normal. No contour-deforming mass, stones, or hydronephrosis. Spleen: 10.5 cm. Normal in size and echotexture. Aorta and Inferior Vena Cava: Unremarkable. Other: None. IMPRESSION: Normal abdomen ultrasound. [facility] ADDENDUM: 07/31/18 01:30 Results called to VIRGINIE Brooke, on 07/31/2018 at 1:30 AM.
== END 2018-07-31 00:02 | disposition home or self-care (01) ==
LOC: DI 00:01
PROVIDERS: ATTEND Family Medicine
DX: R10.12 Left upper quadrant pain (principal); R74.0 Nonspecific elevation of levels of transaminase and lactic acid dehydrogenase [LDH]; Z87.19 Personal history of other diseases of the digestive system
CPT/HCPCS: 76700

== ENCOUNTER 2018-08-12 01:00 | Emergency (ER) | payer MEDICAID ==
--- NOTE | 2018-08-12 01:05 | ED Physician Documentation ---
PD HPI HEADACHE - Stated complaint Stated Complaint: VOMITING,MIGRAINE - History obtained from History obtained from: Patient - History of Present Illness Timing - onset: Today Timing - onset during: Light activity Timing - duration: Hours Timing - details: Abrupt onset, Still present Worst headache ever?: No: Worst headache ever? (similar to prior migraines) Location: Front, Right Quality: Throbbing, Aching Associated symptoms: Nausea, Vomiting, Numbness (right arm for few months since a prior strong migraine; has seen her neurologist about it and is getting approval for MRI.). No: Fever, Stiff neck, Weakness Improved by: Dark room. No: Rest, Meds Worsened by: Light, Noise Contributing factors: No: Anticoagulated, Trauma Similar symptoms before: Diagnosis (migraines and cluster headaches) Recently seen: Emergency Dept Review of Systems Constitutional: denies: Fever, Chills, Myalgias Nose: denies: Rhinorrhea / runny nose, Congestion Throat: denies: Sore throat Cardiac: denies: Chest pain / pressure, Palpitations Respiratory: denies: Dyspnea, Cough GI: reports: Nausea, Vomiting. denies: Abdominal Pain, Constipation Skin: denies: Rash, Lesions Neurologic: reports: Headache. 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: Endometriosis : None HEENT: None Psych: Depression, Anxiety Musculoskeletal: Osteoarthritis, Fibromyalgia Derm: None - Past Surgical History Past Surgical History: Yes General: Appendectomy /POT OPERATOR: Other HEENT: Tonsil/Adenoidectomy - Present Medications Home Medications: Ambulatory Orders Medication Instructions Recorded Confirmed Cholecalciferol [Vitamin D3] 5,000 unit PO DAILY 02/09/16 06/04/18 Pregabalin [Lyrica] 100 mg PO TID 02/09/16 06/04/18 Epinephrine [Epipen 2-Olayinka] 0.3 mg IJ ONCE #2 units 04/18/16 06/04/18 Temazepam [Restoril] 1 tab PO DAILY 07/31/16 08/14/17 Magnesium 250 mg PO DAILY 06/21/17 06/04/18 Epinephrine [Epipen 2-Olayinka] 0.3 mg IJ ONCE PRN #1 auto.injct 08/14/17 06/04/18 Famotidine [Pepcid] 20 mg PO DAILY #30 tablet 01/18/18 06/04/18 lamoTRIgine [Subvenite] 150 mg ORAL DAILY 06/04/18 06/04/18 - Allergies Allergies/Adverse Reactions: Allergies Allergy/AdvReac Type Severity Reaction Status Date / Time dihydroergotamine Allergy Severe Respiratory Verified 07/06/18 04:35 divalproex sodium Allergy Severe anaphylaxis Verified 07/06/18 04:35 [From Depakote] frovatriptan [Frovatriptan] Allergy Severe anaphylaxis Verified 07/06/18 04:35 metoclopramide HCl * Allergy Severe HTN Verified 07/06/18 04:35 [From Reglan] naratriptan HCl * Allergy Severe anaphylaxis Verified 07/06/18 04:35 [From Amerge] prochlorperazine edisylate * Allergy Severe HTN Verified 07/06/18 04:35 [From Compazine] prochlorperazine maleate * Allergy Severe HTN Verified 07/06/18 04:35 [From Compazine] promethazine HCl * Allergy Severe HTN Verified 07/06/18 04:35 [From Phenergan] rizatriptan benzoate * Allergy Severe anaphylaxis Verified 07/06/18 04:35 [From Maxalt] sumatriptan [From Imitrex] Allergy Severe anaphylaxis Verified 07/06/18 04:35 sumatriptan succinate * Allergy Severe anaphylaxis Verified 04/20/18 22:39 [From Imitrex] vancomycin Allergy Severe nicolette Verified 04/20/18 22:39 syndrome doxycycline Allergy Unknown Unknown Verified 04/20/18 22:39 Antihistamines - Alkylamine AdvReac Severe severe Verified 04/20/18 22:39 anxiety, wheezing, dizziness prednisone AdvReac Severe Hallucinati Verified 04/20/18 22:39 ons diphenhydramine HCl * AdvReac Unknown Unknown Verified 04/20/18 22:39 [From Benadryl] pentosan polysulfate sodium AdvReac Unknown Verified 04/20/18 22:39 [From Elmiron] tape Allergy Hives Uncoded 04/20/18 22:39 - Social History Does the pt smoke?: No Smoking Status: Former smoker Does the pt drink ETOH?: No Does the pt have substance abuse?: No - Immunizations Immunizations are current?: Yes - POLST Patient has POLST: No PD ED PE NORMAL - Vitals Vital signs reviewed: Yes - General General: Alert and oriented X 3, Well developed/nourished, Other (seems very uncomfortable due to migraine. Alert and conversant. ) - HEENT HEENT: Atraumatic, PERRL, EOMI (photophobic), Pharynx benign - Neck Neck: Supple, no meningeal sign, No adenopathy - Cardiac Cardiac: RRR, No murmur - Respiratory Respiratory: Clear bilaterally - Abdomen Abdomen: Soft, Non tender - Derm Derm: Normal color, Warm and dry - Extremities Extremities: No deformity, No tenderness to palpate - Neuro Neuro: Alert and oriented X 3, No motor deficit, Normal speech Eye Opening: Spontaneous Motor: Obeys Commands Verbal: Oriented GCS Score: 15 - Psych Psych: Normal mood Results - Vitals Vitals: Vital Signs - 24 hr 08/12/18 02:57 Heart Rate 79 Respiratory 16 Rate Blood Pressure 105/68 O2 Saturation 100 Oxygen O2 Source Room air Oxygen Flow Rate 15 PD MEDICAL DECISION MAKING - ED course Complexity details: reviewed old records, considered differential (treated as per her Neurlogist's guidance letter and prior ED visits, with improvement enough of her headache that she felt able to go home.), d/w patient Departure - Departure Disposition: 01 Home, Self Care Clinical Impression: Migraine Condition: Stable Record reviewed to determine appropriate education?: Yes Instructions: ED Headache Migraine Follow-Up: Kyle Pool MD [Primary Care Provider] - Nils Park MD [Physician No Access] - Comments: Continue usual medications at home. Follow-up with your neurologist as needed. Discharge Date/Time: 08/12/18 03:43
[2018-08-12] MEDS ORDERED: SODIUM CHLORIDE 0.9% 1,000 ML IV ONE (01:28)
[2018-08-12] MEDS ORDERED: ONDANSETRON 4 MG/2 ML VIAL IVP STA (01:30)
[2018-08-12] MEDS ORDERED: HYDROmorphone 1 MG/ML CARPUJECT IVP STA ×2 (01:30→02:46)
[2018-08-12] MEDS ORDERED: KETOROLAC 30 MG/ML VIAL IVP STA (01:30)
[2018-08-12] MEDS ORDERED: LORazepam 2 MG/ML VIAL IVP STA (01:31)
[2018-08-12 02:57] VITALS: BP 105/68
== END 2018-08-12 03:43 | disposition home or self-care (01) ==
LOC: ED 01:00
DX: G43.909 Migraine, unspecified, not intractable, without status migrainosus (principal); M79.7 Fibromyalgia; Z86.73 Personal history of transient ischemic attack (TIA), and cerebral infarction without residual deficits; Z87.891 Personal history of nicotine dependence
CPT/HCPCS: 96374; 96375; 96376; 99283; 99284; J1170; J2060

== ENCOUNTER 2018-08-30 11:11 | Emergency (ER) | payer MEDICAID ==
[2018-08-30] MEDS ORDERED: ONDANSETRON 4 MG/2 ML VIAL IVP STA (14:08)
[2018-08-30] MEDS ORDERED: SODIUM CHLORIDE 0.9% 1,000 ML IV ONE (14:08)
[2018-08-30] MEDS ORDERED: HYDROmorphone 1 MG/ML CARPUJECT IM STA ×3 (14:08→16:48)
[2018-08-30] MEDS ORDERED: KETOROLAC 30 MG/ML VIAL IVP STA (14:09)
[2018-08-30] MEDS ORDERED: LORazepam 2 MG/ML VIAL IVP STA (14:09)
[2018-08-30] MEDS ORDERED: KETOROLAC 60 MG/2 ML VIAL IM STA (14:47)
[2018-08-30] MEDS ORDERED: ONDANSETRON 4 MG/2 ML VIAL IM STA (14:49)
[2018-08-30] MEDS ORDERED: LORazepam 2 MG/ML VIAL IM STA (15:17)
[2018-08-30] MEDS ORDERED: ONDANSETRON ODT 4 MG TABLET TL STA ×2 (15:19→17:37)
[2018-08-30 18:13] VITALS: BP 112/76
--- NOTE | 2018-08-30 18:26 | ED Physician Documentation ---
PD HPI HEADACHE - Stated complaint Stated Complaint: MIGRAINE - Chief complaint Chief Complaint: Neuro - History obtained from History obtained from: Patient - History of Present Illness Timing - onset: How many days ago (2) Timing - duration: Days (2) Timing - details: Gradual onset, Still present Worst headache ever?: Worst headache ever? (No) Location: Global Associated symptoms: Nausea, Vomiting Worsened by: Light, Noise, Moving Similar symptoms before: Diagnosis (Migraines) - Treatment prior to arrival Treatment prior to arrival: Zofran and Aleve, without relief. - Additional information Additional information: The patient is a 33-year-old female with a history of migraine headaches, who presents with a global headache that started 2 days ago awaking her from sleep. It has continued despite Zofran and Aleve. She reports associated photosensitivity and vomiting. She denies fever, abdominal pain, numbness or weakness. She reports a history of similar headaches intermittently since age 12. She is seen by a neurologist, and carries with her a treatment plan for emergency intervention. Review of Systems Constitutional: denies: Fever Eyes: reports: Photophobia Ears: denies: Tinnitus/ringing Nose: denies: Congestion Throat: denies: Sore throat Cardiac: denies: Chest pain / pressure Respiratory: denies: Dyspnea, Cough GI: reports: Nausea, Vomiting. denies: Abdominal Pain : denies: Dysuria Skin: denies: Rash Musculoskeletal: denies: Neck pain Neurologic: reports: Headache. 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 : None HEENT: None Psych: Depression, Anxiety, ADD/ADHD, Post traumatic stress disorder Musculoskeletal: Osteoarthritis, Fibromyalgia Derm: None - Past Surgical History Past Surgical History: Yes General: Appendectomy /IMPORT/EXPORT ANALYST: Endometrial ablation, Other HEENT: Tonsil/Adenoidectomy - Present Medications Home Medications: Ambulatory Orders Medication Instructions Recorded Confirmed Cholecalciferol [Vitamin D3] 5,000 unit PO DAILY 02/09/16 06/04/18 Pregabalin [Lyrica] 100 mg PO TID 02/09/16 06/04/18 Epinephrine [Epipen 2-Olayinka] 0.3 mg IJ ONCE #2 units 04/18/16 06/04/18 Temazepam [Restoril] 1 tab PO DAILY 07/31/16 08/14/17 Magnesium 250 mg PO DAILY 06/21/17 06/04/18 Epinephrine [Epipen 2-Olayinka] 0.3 mg IJ ONCE PRN #1 auto.injct 08/14/17 06/04/18 Famotidine [Pepcid] 20 mg PO DAILY #30 tablet 01/18/18 06/04/18 lamoTRIgine [Subvenite] 150 mg ORAL DAILY 06/04/18 06/04/18 - Allergies Allergies/Adverse Reactions: Allergies Allergy/AdvReac Type Severity Reaction Status Date / Time dihydroergotamine Allergy Severe Respiratory Verified 07/06/18 04:35 divalproex sodium Allergy Severe anaphylaxis Verified 07/06/18 04:35 [From Depakote] frovatriptan [Frovatriptan] Allergy Severe anaphylaxis Verified 07/06/18 04:35 metoclopramide HCl * Allergy Severe HTN Verified 07/06/18 04:35 [From Reglan] naratriptan HCl * Allergy Severe anaphylaxis Verified 07/06/18 04:35 [From Amerge] prochlorperazine edisylate * Allergy Severe HTN Verified 07/06/18 04:35 [From Compazine] prochlorperazine maleate * Allergy Severe HTN Verified 07/06/18 04:35 [From Compazine] promethazine HCl * Allergy Severe HTN Verified 07/06/18 04:35 [From Phenergan] rizatriptan benzoate * Allergy Severe anaphylaxis Verified 07/06/18 04:35 [From Maxalt] sumatriptan [From Imitrex] Allergy Severe anaphylaxis Verified 07/06/18 04:35 sumatriptan succinate * Allergy Severe anaphylaxis Verified 04/20/18 22:39 [From Imitrex] vancomycin Allergy Severe nicolette Verified 04/20/18 22:39 syndrome doxycycline Allergy Unknown Unknown Verified 04/20/18 22:39 Antihistamines - Alkylamine AdvReac Severe severe Verified 04/20/18 22:39 anxiety, wheezing, dizziness prednisone AdvReac Severe Hallucinati Verified 04/20/18 22:39 ons diphenhydramine HCl * AdvReac Unknown Unknown Verified 04/20/18 22:39 [From Benadryl] pentosan polysulfate sodium AdvReac Unknown Verified 04/20/18 22:39 [From Elmiron] tape Allergy Hives Uncoded 04/20/18 22:39 - Social History Does the pt smoke?: No Smoking Status: Never smoker Does the pt drink ETOH?: No Does the pt have substance abuse?: No - Immunizations Immunizations are current?: Yes - POLST Patient has POLST: No PD ED PE NORMAL - Vitals Vital signs reviewed: Yes (normal) - General General: Alert and oriented X 3, Well developed/nourished, Other (Wearing sunglasses, and shielding her eyes from the light.) - HEENT HEENT: Atraumatic, PERRL, EOMI, Pharynx benign - Neck Neck: Supple, no meningeal sign, No adenopathy - Cardiac Cardiac: RRR, No murmur - Respiratory Respiratory: No respiratory distress, Clear bilaterally - Abdomen Abdomen: Soft, Non tender - Back Back: No CVA TTP - Derm Derm: No rash - Extremities Extremities: No edema, No calf tenderness / cord - Neuro Neuro: Alert and oriented X 3, No motor deficit, No sensory deficit Results - Vitals Vitals: Oxygen O2 Source Room air PD MEDICAL DECISION MAKING - ED course Complexity details: reviewed old records, re-evaluated patient, considered differential, d/w patient, d/w family ED course: The patient's presentation is consistent with recurrent migraine headache. Her presentation does not suggest meningitis, temporal arteritis, subdural hemorrhage, or pseudotumor cerebri. Treatment in the emergency department deviated somewhat from the treatment plan outlined by her neurologist, because 3 attempts at establishing peripheral IV access were unsuccessful. Therefore medications were administered intramuscularly. Treatment included administration of hydromorphone 2 mg IM, ketorolac 60 mg IM, and ondansetron 8 mg IM. This was followed by lorazepam 1 mg IM, and additional milligram of hydromorphone IM, and ondansetron 4 mg sublingually. Following the above treatment the patient felt subjectively much improved. She demonstrated ability to drink fluids without recurrent nausea. At the time of discharge, I discussed with her and her male program director symptomatic treatment, outpatient follow-up, as well as potentially worrisome signs or symptoms that should prompt reevaluation in the emergency department. Departure - Departure Disposition: Home, Self Care Clinical Impression: Migraine Condition: Stable Instructions: ED Headache Migraine Follow-Up: Kyle Pool MD [Primary Care Provider] - Nils Park MD [Physician No Access] - Comments: Drink plenty of fluids. Follow-up with your neurologist as planned. Return to the emergency department if you develop increasing headache, persistent vomiting, or otherwise worsening symptoms. Discharge Date/Time: 08/30/18 18:40
== END 2018-08-30 18:40 | disposition home or self-care (01) ==
LOC: ED 11:11
DX: G43.909 Migraine, unspecified, not intractable, without status migrainosus (principal)
CPT/HCPCS: 96372; 99283; J1170; J2060; Q0162

== ENCOUNTER 2018-10-21 19:18 | Emergency (ER) | payer MEDICAID ==
[2018-10-21] MEDS ORDERED: KETOROLAC 30 MG/ML VIAL IVP STA (20:32)
[2018-10-21] MEDS ORDERED: SODIUM CHLORIDE 0.9% 1,000 ML IV ONE (20:32)
[2018-10-21] MEDS ORDERED: HYDROmorphone 1 MG/ML CARPUJECT IVP STA (20:32)
[2018-10-21] MEDS ORDERED: ONDANSETRON 4 MG/2 ML VIAL IVP STA (20:32)
--- NOTE | 2018-10-21 20:33 | ED Physician Documentation ---
PD HPI HEADACHE - Stated complaint Stated Complaint: MADSEN/VOMITING - Chief complaint Chief Complaint: Neuro - History obtained from History obtained from: Patient - History of Present Illness Timing - onset: Other (33-year-old woman with chronic headaches presents with 4 days of intractable migraine despite taking medications at home including but not limited to alprazolam, naproxen, oxycodone. Worse today with light sensitivity and vomiting. 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: Endometriosis : None HEENT: None Psych: Depression, Anxiety, ADD/ADHD, Post traumatic stress disorder Musculoskeletal: Osteoarthritis, Fibromyalgia Derm: None - Past Surgical History Past Surgical History: Yes General: Appendectomy /CLINICAL QUALITY ASSURANCE SPECIALIST: Endometrial ablation, Other HEENT: Tonsil/Adenoidectomy - Present Medications Home Medications: Ambulatory Orders Medication Instructions Recorded Confirmed Cholecalciferol [Vitamin D3] 5,000 unit PO DAILY 02/09/16 06/04/18 Pregabalin [Lyrica] 100 mg PO TID 02/09/16 06/04/18 EPINEPHrine [Epipen 2-Olayinka] 0.3 mg IJ ONCE #2 units 04/18/16 06/04/18 RX: Temazepam [Restoril] 1 tab PO DAILY 07/31/16 08/14/17 RX: Magnesium 250 mg PO DAILY 06/21/17 06/04/18 EPINEPHrine [Epipen 2-Olayinka] 0.3 mg IJ ONCE PRN #1 auto.injct 08/14/17 06/04/18 Famotidine [Pepcid] 20 mg PO DAILY #30 tablet 01/18/18 06/04/18 RX: lamoTRIgine [Subvenite] 150 mg ORAL DAILY 06/04/18 06/04/18 - Allergies Allergies/Adverse Reactions: Allergies Allergy/AdvReac Type Severity Reaction Status Date / Time dihydroergotamine Allergy Severe Respiratory Verified 10/21/18 20:16 divalproex sodium Allergy Severe anaphylaxis Verified 10/21/18 20:16 [From Depakote] frovatriptan [Frovatriptan] Allergy Severe anaphylaxis Verified 10/21/18 20:16 metoclopramide HCl * Allergy Severe HTN Verified 10/21/18 20:16 [From Reglan] naratriptan HCl * Allergy Severe anaphylaxis Verified 10/21/18 20:16 [From Amerge] prochlorperazine edisylate * Allergy Severe HTN Verified 10/21/18 20:16 [From Compazine] prochlorperazine maleate * Allergy Severe HTN Verified 10/21/18 20:16 [From Compazine] promethazine HCl * Allergy Severe HTN Verified 10/21/18 20:16 [From Phenergan] rizatriptan benzoate * Allergy Severe anaphylaxis Verified 10/21/18 20:16 [From Maxalt] sumatriptan [From Imitrex] Allergy Severe anaphylaxis Verified 10/21/18 20:16 sumatriptan succinate * Allergy Severe anaphylaxis Verified 10/21/18 20:16 [From Imitrex] vancomycin Allergy Severe nicolette Verified 10/21/18 20:16 syndrome doxycycline Allergy Unknown Unknown Verified 10/21/18 20:16 Antihistamines - Alkylamine AdvReac Severe severe Verified 10/21/18 20:16 anxiety, wheezing, dizziness prednisone AdvReac Severe Hallucinati Verified 10/21/18 20:16 ons diphenhydramine HCl * AdvReac Unknown Unknown Verified 10/21/18 20:16 [From Benadryl] pentosan polysulfate sodium AdvReac Unknown Verified 10/21/18 20:16 [From Elmiron] tape Allergy Hives Uncoded 10/21/18 20:16 - Social History Does the pt smoke?: No Smoking Status: Current every day smoker Does the pt drink ETOH?: No Does the pt have substance abuse?: No Substance Use and Type: Other - Immunizations Immunizations are current?: Yes - POLST Patient has POLST: No PD ED PE NORMAL - Vitals Vital signs reviewed: Yes - General General: Alert and oriented X 3, No acute distress - HEENT HEENT: PERRL, EOMI - Neck Neck: Supple, no meningeal sign, No bony TTP - Neuro Neuro: Alert and oriented X 3, acquisition specialist 2-12 intact Eye Opening: Spontaneous Motor: Obeys Commands Verbal: Oriented GCS Score: 15 - Psych Psych: Normal mood, Normal affect Results - Vitals Vitals: Vital Signs - 24 hr 10/21/18 10/21/18 19:36 21:52 Temperature 36.6 C 36.7 C Heart Rate 82 73 Respiratory 16 16 Rate Blood Pressure 100/68 117/69 O2 Saturation 97 100 Oxygen O2 Source Room air Oxygen Flow Rate 15 PD MEDICAL DECISION MAKING - ED course Complexity details: re-evaluated patient ED course: This is a 33-year-old woman with chronic migraines. Her care plan from her neurologist was reviewed and she was ordered medications on the care plan including Dilaudid, 2 mg IV, Toradol, 30 mg IV, IV fluids, high flow oxygen, and Zofran 8 mg IV. Departure - Departure Disposition: 01 Home, Self Care Clinical Impression: Migraine Condition: Good Record reviewed to determine appropriate education?: Yes Instructions: ED Headache Migraine Comments: Call your doctor to arrange a follow-up appointment, make the next available appointment. In the interim, return anytime if worse or if new symptoms develop. Discharge Date/Time: 10/21/18 22:01
[2018-10-21 21:54] VITALS: BP 117/69
== END 2018-10-21 22:01 | disposition home or self-care (01) ==
LOC: ED 19:18
DX: G43.719 Chronic migraine without aura, intractable, without status migrainosus (principal); F17.200 Nicotine dependence, unspecified, uncomplicated
CPT/HCPCS: 96361; 96374; 99283; J1170; 80053; 83690

== ENCOUNTER 2018-12-23 11:45 | Emergency (ER) | payer MEDICAID ==
--- NOTE | 2018-12-23 12:42 | ED Physician Documentation ---
PD HPI HEADACHE - Stated complaint Stated Complaint: HEADACHE,NAUSE,CONFUSION,R LEG/ARM WEAK - Chief complaint Chief Complaint: Neuro - History obtained from History obtained from: Patient - History of Present Illness Timing - onset: Today (She was in yoga class today and developed gradual onset headache on the left side of the head from left head radiating to right latter-day. Similar to prior migraines and associated with neuro symptoms with R sided weakness. 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: Endometriosis : None HEENT: None Psych: Depression, Anxiety, ADD/ADHD, Post traumatic stress disorder Musculoskeletal: Osteoarthritis, Fibromyalgia Derm: None - Past Surgical History Past Surgical History: Yes General: Appendectomy /CAKE BATTER MIXER: Endometrial ablation, Other HEENT: Tonsil/Adenoidectomy - Present Medications Home Medications: Ambulatory Orders Medication Instructions Recorded Confirmed Cholecalciferol [Vitamin D3] 5,000 unit PO DAILY 02/09/16 06/04/18 Pregabalin [Lyrica] 100 mg PO TID 02/09/16 06/04/18 EPINEPHrine [Epipen 2-Olayinka] 0.3 mg IJ ONCE #2 units 04/18/16 06/04/18 Temazepam [Restoril] 1 tab PO DAILY 07/31/16 08/14/17 Magnesium 250 mg PO DAILY 06/21/17 06/04/18 EPINEPHrine [Epipen 2-Olayinka] 0.3 mg IJ ONCE PRN #1 auto.injct 08/14/17 06/04/18 Famotidine [Pepcid] 20 mg PO DAILY #30 tablet 01/18/18 06/04/18 lamoTRIgine [Subvenite] 150 mg ORAL DAILY 06/04/18 06/04/18 - Allergies Allergies/Adverse Reactions: Allergies Allergy/AdvReac Type Severity Reaction Status Date / Time dihydroergotamine Allergy Severe Respiratory Verified 12/23/18 11:58 divalproex sodium Allergy Severe anaphylaxis Verified 12/23/18 11:58 [From Depakote] frovatriptan [Frovatriptan] Allergy Severe anaphylaxis Verified 12/23/18 11:58 metoclopramide HCl * Allergy Severe HTN Verified 12/23/18 11:58 [From Reglan] naratriptan HCl * Allergy Severe anaphylaxis Verified 12/23/18 11:58 [From Amerge] prochlorperazine edisylate * Allergy Severe HTN Verified 12/23/18 11:58 [From Compazine] prochlorperazine maleate * Allergy Severe HTN Verified 12/23/18 11:58 [From Compazine] promethazine HCl * Allergy Severe HTN Verified 12/23/18 11:58 [From Phenergan] rizatriptan benzoate * Allergy Severe anaphylaxis Verified 12/23/18 11:58 [From Maxalt] sumatriptan [From Imitrex] Allergy Severe anaphylaxis Verified 12/23/18 11:58 sumatriptan succinate * Allergy Severe anaphylaxis Verified 12/23/18 11:58 [From Imitrex] vancomycin Allergy Severe nicolette Verified 12/23/18 11:58 syndrome doxycycline Allergy Unknown Unknown Verified 12/23/18 11:58 Antihistamines - Alkylamine AdvReac Severe severe Verified 12/23/18 11:58 anxiety, wheezing, dizziness prednisone AdvReac Severe Hallucinati Verified 12/23/18 11:58 ons diphenhydramine HCl * AdvReac Unknown Unknown Verified 12/23/18 11:58 [From Benadryl] pentosan polysulfate sodium AdvReac Unknown Verified 12/23/18 11:58 [From Elmiron] tape Allergy Hives Uncoded 12/23/18 11:58 - Social History Does the pt smoke?: No Smoking Status: Current every day smoker Does the pt drink ETOH?: No Does the pt have substance abuse?: No - Immunizations Immunizations are current?: Yes - POLST Patient has POLST: No PD ED PE NORMAL - Vitals Vital signs reviewed: Yes - General General: Alert and oriented X 3, Other (uncomfortable and photophobic.) - HEENT HEENT: PERRL, EOMI - Neck Neck: Supple, no meningeal sign, No bony TTP - Neuro Neuro: Alert and oriented X 3, Other (somewhat weak R side. with corresponding numbness (incomplete) on R side.). 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 She was treated as per her neurologist care plan with divided doses of parenteral Dilaudid, Toradol, and Zofran. Also needed some Ativan. She did not seem at all sedated which is surprising, but actually not so in my previous experience with this young woman. Departure - Departure Disposition: 01 Home, Self Care Clinical Impression: Migraine Condition: Good Record reviewed to determine appropriate education?: Yes Instructions: ED Headache Migraine Comments: Call your doctor to arrange a follow-up appointment, make the next available appointment. In the interim, return anytime if worse or if new symptoms develop.
[2018-12-23] MEDS ORDERED: HYDROmorphone 1 MG/ML CARPUJECT IM STA ×2 (12:45→14:35)
[2018-12-23] MEDS ORDERED: KETOROLAC 60 MG/2 ML VIAL IM STA (12:45)
[2018-12-23] MEDS ORDERED: ONDANSETRON 4 MG/2 ML VIAL IM STA (12:45)
[2018-12-23] MEDS ORDERED: ONDANSETRON ODT 4 MG TABLET TL STA (13:13)
[2018-12-23] MEDS ORDERED: LORazepam 2 MG/ML VIAL IM STA (13:22)
[2018-12-23 14:56] VITALS: BP 122/89
== END 2018-12-23 15:17 | disposition home or self-care (01) ==
LOC: EDSEX → EDUNIT# → ED 11:45
DX: G43.909 Migraine, unspecified, not intractable, without status migrainosus (principal)
CPT/HCPCS: 99283

== ENCOUNTER 2018-12-23 15:54 | Emergency (ER) | payer MEDICAID ==
[2018-12-23 16:13] VITALS: BP 129/92
--- NOTE | 2018-12-23 17:12 | ED Physician Documentation ---
PD HPI CHEST PAIN - Stated complaint Stated Complaint: HEART RACING AFTER TREATMENT - Chief complaint Chief Complaint: Cardiac - History obtained from History obtained from: Patient - History of Present Illness Timing - onset: Today (She was seen just prior to arrival for a migraine headache and received medications. On her way out she started to have a brief episode of palpitations which is gone on our evaluation. She is her currently symptom-free. 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: Endometriosis : None HEENT: None Psych: Depression, Anxiety, ADD/ADHD, Post traumatic stress disorder Musculoskeletal: Osteoarthritis, Fibromyalgia Derm: None - Past Surgical History Past Surgical History: Yes General: Appendectomy /AMBULATORY NURSE: Endometrial ablation, Other HEENT: Tonsil/Adenoidectomy - Present Medications Home Medications: Ambulatory Orders Medication Instructions Recorded Confirmed Cholecalciferol [Vitamin D3] 5,000 unit PO DAILY 02/09/16 06/04/18 Pregabalin [Lyrica] 100 mg PO TID 02/09/16 06/04/18 EPINEPHrine [Epipen 2-Olayinka] 0.3 mg IJ ONCE #2 units 04/18/16 06/04/18 Temazepam [Restoril] 1 tab PO DAILY 07/31/16 08/14/17 Magnesium 250 mg PO DAILY 06/21/17 06/04/18 EPINEPHrine [Epipen 2-Olayinka] 0.3 mg IJ ONCE PRN #1 auto.injct 08/14/17 06/04/18 Famotidine [Pepcid] 20 mg PO DAILY #30 tablet 01/18/18 06/04/18 lamoTRIgine [Subvenite] 150 mg ORAL DAILY 06/04/18 06/04/18 - Allergies Allergies/Adverse Reactions: Allergies Allergy/AdvReac Type Severity Reaction Status Date / Time dihydroergotamine Allergy Severe Respiratory Verified 12/23/18 11:58 divalproex sodium Allergy Severe anaphylaxis Verified 12/23/18 11:58 [From Depakote] frovatriptan [Frovatriptan] Allergy Severe anaphylaxis Verified 12/23/18 11:58 metoclopramide HCl * Allergy Severe HTN Verified 12/23/18 11:58 [From Reglan] naratriptan HCl * Allergy Severe anaphylaxis Verified 12/23/18 11:58 [From Amerge] prochlorperazine edisylate * Allergy Severe HTN Verified 12/23/18 11:58 [From Compazine] prochlorperazine maleate * Allergy Severe HTN Verified 12/23/18 11:58 [From Compazine] promethazine HCl * Allergy Severe HTN Verified 12/23/18 11:58 [From Phenergan] rizatriptan benzoate * Allergy Severe anaphylaxis Verified 12/23/18 11:58 [From Maxalt] sumatriptan [From Imitrex] Allergy Severe anaphylaxis Verified 12/23/18 11:58 sumatriptan succinate * Allergy Severe anaphylaxis Verified 12/23/18 11:58 [From Imitrex] vancomycin Allergy Severe nicolette Verified 12/23/18 11:58 syndrome doxycycline Allergy Unknown Unknown Verified 12/23/18 11:58 Antihistamines - Alkylamine AdvReac Severe severe Verified 12/23/18 11:58 anxiety, wheezing, dizziness prednisone AdvReac Severe Hallucinati Verified 12/23/18 11:58 ons diphenhydramine HCl * AdvReac Unknown Unknown Verified 12/23/18 11:58 [From Benadryl] pentosan polysulfate sodium AdvReac Unknown Verified 12/23/18 11:58 [From Elmiron] tape Allergy Hives Uncoded 12/23/18 11:58 - Social History Does the pt smoke?: No Smoking Status: Current every day smoker Does the pt drink ETOH?: No Does the pt have substance abuse?: No - Immunizations Immunizations are current?: Yes - POLST Patient has POLST: No PD ED PE NORMAL - Vitals Vital signs reviewed: Yes - General General: Alert and oriented X 3, No acute distress - Cardiac Cardiac: RRR, No murmur - Respiratory Respiratory: Clear bilaterally - Neuro Neuro: Alert and oriented X 3, Normal speech Results - Vitals Vitals: Vital Signs - 24 hr 12/23/18 16:10 Temperature 36.7 C Heart Rate 102 H Respiratory 18 Rate Blood Pressure 129/92 H O2 Saturation 99 Oxygen O2 Source Room air - EKG (time done) 1641 Rate: Rate (enter#) (101) Rhythm: Sinus tachycardia [place]: Normal Intervals: Prolonged [place] QRS: Normal Ischemia: Normal ST segments Computer interpretation: Agree with computer Departure - Departure Disposition: 01 Home, Self Care Clinical Impression: Palpitations Condition: Good Record reviewed to determine appropriate education?: Yes Comments: If symptoms are persistent talk with your primary care provider about a Holter monitor. Return for new or worsening symptoms.
== END 2018-12-23 17:13 | disposition home or self-care (01) ==
LOC: ED 15:54
DX: R00.2 Palpitations (principal); R00.0 Tachycardia, unspecified; I45.81 Long QT syndrome; I44.0 Atrioventricular block, first degree; G43.909 Migraine, unspecified, not intractable, without status migrainosus; F17.200 Nicotine dependence, unspecified, uncomplicated; Z86.73 Personal history of transient ischemic attack (TIA), and cerebral infarction without residual deficits
CPT/HCPCS: 93005; 96372; 99282; 99283; J1170; J2060; Q0162

== ENCOUNTER 2018-12-25 11:17 | Emergency (ER) | payer MEDICAID ==
[2018-12-25] MEDS ORDERED: SODIUM CHLORIDE 0.9% 1,000 ML IV ONE (12:48)
[2018-12-25] MEDS ORDERED: ONDANSETRON 4 MG/2 ML VIAL IVP STA ×2 (12:48→15:05)
[2018-12-25] MEDS ORDERED: KETOROLAC 30 MG/ML VIAL IVP STA (12:48)
[2018-12-25] MEDS ORDERED: HYDROmorphone 1 MG/ML CARPUJECT IVP STA ×2 (12:48→15:05)
--- NOTE | 2018-12-25 12:51 | ED Physician Documentation ---
PD HPI HEADACHE - Stated complaint Stated Complaint: HEAD PX,STOMACH PAIN - Chief complaint Chief Complaint: Neuro - History obtained from History obtained from: Patient, Family - History of Present Illness Timing - onset: Today Timing - onset during: Rest Timing - duration: Hours Timing - details: Gradual onset, Still present Location: Left Quality: Throbbing Associated symptoms: Stiff neck, Nausea. No: Vomiting Improved by: Rest, Dark room, Quiet, Meds Worsened by: Light, Noise, Moving Contributing factors: No: Anticoagulated Similar symptoms before: Diagnosis (migraine) Recently seen: Emergency Dept - Additional information Additional information: 33-year-old female with a history of ADHD and migraine headaches brings a letter in from her neurologist indicating her treatment plan for her migraine headaches which is to include a rescue formula no more than twice per month. The patient states that she was in the emergency department 2 days ago had relief of her headache she came back with some palpitations she has been into see her primary care doctor in follow-up and will have a monitor placed. She is now having symptoms of headache again nausea and photophobia. Review of Systems Constitutional: denies: Fever Eyes: reports: Photophobia. denies: Decreased vision Ears: denies: Ear pain Nose: denies: Rhinorrhea / runny nose, Congestion Throat: denies: Sore throat Cardiac: denies: Chest pain / pressure, Palpitations Respiratory: denies: Dyspnea, Cough GI: reports: Nausea. denies: Abdominal Pain, Vomiting, Constipation, Diarrhea : denies: Dysuria, Frequency Skin: denies: Rash Musculoskeletal: reports: Neck pain. 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 : None HEENT: None Psych: Depression, Anxiety, ADD/ADHD, Post traumatic stress disorder Musculoskeletal: Osteoarthritis, Fibromyalgia Derm: None - Past Surgical History Past Surgical History: Yes General: Appendectomy /DESKTOP SPECIALIST: Endometrial ablation, Other HEENT: Tonsil/Adenoidectomy - Present Medications Home Medications: Ambulatory Orders Medication Instructions Recorded Confirmed Cholecalciferol [Vitamin D3] 5,000 unit PO DAILY 02/09/16 06/04/18 Pregabalin [Lyrica] 100 mg PO TID 02/09/16 06/04/18 EPINEPHrine [Epipen 2-Olayinka] 0.3 mg IJ ONCE #2 units 04/18/16 06/04/18 Temazepam [Restoril] 1 tab PO DAILY 07/31/16 08/14/17 Magnesium 250 mg PO DAILY 06/21/17 06/04/18 EPINEPHrine [Epipen 2-Olayinka] 0.3 mg IJ ONCE PRN #1 auto.injct 08/14/17 06/04/18 Famotidine [Pepcid] 20 mg PO DAILY #30 tablet 01/18/18 06/04/18 lamoTRIgine [Subvenite] 150 mg ORAL DAILY 06/04/18 06/04/18 - Allergies Allergies/Adverse Reactions: Allergies Allergy/AdvReac Type Severity Reaction Status Date / Time dihydroergotamine Allergy Severe Respiratory Verified 12/25/18 11:28 divalproex sodium Allergy Severe anaphylaxis Verified 12/25/18 11:28 [From Depakote] frovatriptan [Frovatriptan] Allergy Severe anaphylaxis Verified 12/25/18 11:28 metoclopramide HCl * Allergy Severe HTN Verified 12/25/18 11:28 [From Reglan] naratriptan HCl * Allergy Severe anaphylaxis Verified 12/25/18 11:28 [From Amerge] prochlorperazine edisylate * Allergy Severe HTN Verified 12/25/18 11:28 [From Compazine] prochlorperazine maleate * Allergy Severe HTN Verified 12/25/18 11:28 [From Compazine] promethazine HCl * Allergy Severe HTN Verified 12/25/18 11:28 [From Phenergan] rizatriptan benzoate * Allergy Severe anaphylaxis Verified 12/25/18 11:28 [From Maxalt] sumatriptan [From Imitrex] Allergy Severe anaphylaxis Verified 12/25/18 11:28 sumatriptan succinate * Allergy Severe anaphylaxis Verified 12/25/18 11:28 [From Imitrex] vancomycin Allergy Severe nicolette Verified 12/25/18 11:28 syndrome doxycycline Allergy Unknown Unknown Verified 12/25/18 11:28 Antihistamines - Alkylamine AdvReac Severe severe Verified 12/25/18 11:28 anxiety, wheezing, dizziness prednisone AdvReac Severe Hallucinati Verified 12/25/18 11:28 ons diphenhydramine HCl * AdvReac Unknown Unknown Verified 12/25/18 11:28 [From Benadryl] pentosan polysulfate sodium AdvReac Unknown Verified 12/25/18 11:28 [From Elmiron] tape Allergy Hives Uncoded 12/25/18 11:28 - Social History Does the pt smoke?: No Smoking Status: Current every day smoker Does the pt drink ETOH?: No Does the pt have substance abuse?: No - Immunizations Immunizations are current?: Yes - POLST Patient has POLST: No PD ED PE NORMAL - Vitals Vital signs reviewed: Yes (normal ) - General General: No acute distress, Well developed/nourished, Other ( 33 y/o female with dark glasses in a darkened room is talkative and referres to her daughter for answers to some questions. ) - HEENT HEENT: Atraumatic, PERRL, EOMI, Ears normal, Moist mucous membranes - Neck Neck: Supple, no meningeal sign, No bony TTP, Other (point tenderness to the insertion of the trapezius to the occiput. 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, No motor deficit, No sensory deficit, Normal speech Eye Opening: Spontaneous Motor: Obeys Commands Verbal: Confused GCS Score: 14 - Psych Psych: Normal mood, Normal affect Results - Vitals Vitals: Vital Signs - 24 hr 12/25/18 12/25/18 11:24 15:03 Temperature 35.8 C L Heart Rate 85 78 Respiratory 14 Rate Blood Pressure 124/75 109/93 H O2 Saturation 100 98 Oxygen O2 Source Room air PD MEDICAL DECISION MAKING - ED course Complexity details: reviewed results, re-evaluated patient, considered differential, d/w patient, d/w family ED course: 33-year-old female with a history of migraine headaches is return to the emergency department with a migraine headache. She is treated in the emergency department with a cocktail consisting of saline 1 L intravenously Dilaudid 2 mg intravenously, Zofran 4 mg, and toradol 30mg IVP. The patient has some improvement in her headache but not resolution and she has a panic attack that is relieved by ativan 2mg IVP. Dr. Park her neurologist is consulted in the case and authorizes a second dose of pain medications for relief. Departure - Departure Disposition: 01 Home, Self Care Clinical Impression: Migraine Condition: Stable Instructions: ED Headache Migraine Follow-Up: Zurdo Dunbar PA-C [Primary Care Provider] -
[2018-12-25] MEDS ORDERED: LORazepam 2 MG/ML VIAL IVP STA (13:39)
[2018-12-25 15:04] VITALS: BP 109/93
== END 2018-12-25 15:43 | disposition home or self-care (01) ==
LOC: ED 11:17
DX: G43.909 Migraine, unspecified, not intractable, without status migrainosus (principal); F90.9 Attention-deficit hyperactivity disorder, unspecified type; F17.200 Nicotine dependence, unspecified, uncomplicated
CPT/HCPCS: 96361; 96374; 96375; 96376; 99283; 99284; J1170; J2060

== ENCOUNTER 2019-01-01 14:10 | Outpatient (CLI) | payer MEDICAID ==
[2019-01-01 18:51] LABS: BASOPHILS % (AUTO) 0.3 %; EOSINOPHILS # (AUTO) 0.1 10^3/uL (0.0-0.7); EOSINOPHILS % (AUTO) 1.5 %; LYMPHOCYTES # (AUTO) 2.8 10^3/uL (1.5-3.5); LYMPHOCYTES % (AUTO) 43.4 %; MEAN CORPUSCULAR HEMOGLOBIN 30.1 pg (27.0-31.0); MEAN CORPUSCULAR HGB CONC 33.4 g/dL (32.0-36.0); MEAN PLATELET VOLUME 9.8 fL (7.9-10.8); MONOCYTES # (AUTO) 0.4 10^3/uL (0.0-1.0); MONOCYTES % (AUTO) 6.9 %; NEUTROPHILS # (AUTO) 3.1 10^3/uL (1.5-6.6); NEUTROPHILS % (AUTO) 47.9 %; PLT - PLATELET COUNT 188 10^3/uL (130-450); RED BLOOD COUNT 4.33 10^6/uL (4.20-5.40); RED CELL DISTRIBUTION WIDTH 12.6 % (12.0-15.0); WHITE BLOOD COUNT 6.4 x10^3/uL (4.8-10.8)
[2019-01-01 18:52] LABS: PT - PROTHROMBIN TIME 11.5 secs (9.9-12.6)
== END 2019-01-01 23:59 | disposition home or self-care (01) ==
LOC: LAB.N 14:10
PROVIDERS: ATTEND Physician Assistant Medical
DX: R23.8 Other skin changes (principal)
CPT/HCPCS: 36415; 85025; 85610

== ENCOUNTER 2019-01-29 08:00 | Outpatient (CLI) | payer MEDICAID | END 2019-01-29 23:59 | disposition home or self-care (01) | LOC: LAB.R 08:00 | PROVIDERS: ATTEND Physician Assistant Medical | DX: J02.9 Acute pharyngitis, unspecified (principal) | CPT/HCPCS: 87070 ==

== ENCOUNTER 2019-03-08 21:09 | Emergency (ER) | payer MEDICAID ==
[2019-03-08] MEDS ORDERED: ONDANSETRON 4 MG/2 ML VIAL IVP STA (22:08)
[2019-03-08] MEDS ORDERED: KETOROLAC 30 MG/ML VIAL IVP STA (22:08)
[2019-03-08] MEDS ORDERED: HYDROmorphone 1 MG/ML CARPUJECT IVP STA (22:08)
[2019-03-08] MEDS ORDERED: SODIUM CHLORIDE 0.9% 500 ML IV STA (22:08)
--- NOTE | 2019-03-08 22:10 | ED Physician Documentation ---
PD HPI HEADACHE - Stated complaint Stated Complaint: HEADACHE/NAUSEA - Chief complaint Chief Complaint: Trauma Hd/Nk - History obtained from History obtained from: Patient - History of Present Illness Timing - onset: Yesterday Timing - details: Abrupt onset, Constant Pain level now: 9 Worst headache ever?: No: Worst headache ever? Location: Front, Right Quality: Throbbing, Aching Associated symptoms: Nausea. No: Fever, Stiff neck, Vomiting Improved by: Rest, Dark room Worsened by: Light, Noise Contributing factors: No: Anticoagulated, Possible carbon monoxide, Hypertension Recently seen: Other (10th [facility] ED visit over past 12 months) - Additional information Additional information: patient says her right leg "went out from under me" yesterday due to "flare of my CRPS", causing her to strike her head against wall. She says this has gradually triggered a headache that is typical for her migraine headaches for which she has presented to this ED many times over several years. She provides me with a letter from her neurologist outlining care plan for emergent treatment of her headaches Review of Systems Constitutional: reports: Reviewed and negative Eyes: reports: Photophobia. denies: Loss of vision, Decreased vision Cardiac: reports: Reviewed and negative Respiratory: reports: Reviewed and negative GI: reports: Nausea. denies: Abdominal Pain Musculoskeletal: reports: Extremity pain (RLE (patient states this is a "CRPS flare")) Neurologic: reports: Headache, Head injury. 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 : None HEENT: None Psych: Depression, Anxiety, ADD/ADHD, Post traumatic stress disorder Musculoskeletal: Osteoarthritis, Fibromyalgia Derm: None - Past Surgical History Past Surgical History: Yes General: Appendectomy /DISPENSER OPERATOR: Endometrial ablation, Other HEENT: Tonsil/Adenoidectomy - Present Medications Home Medications: Ambulatory Orders Medication Instructions Recorded Confirmed Cholecalciferol [Vitamin D3] 5,000 unit PO DAILY 02/09/16 06/04/18 Pregabalin [Lyrica] 100 mg PO TID 02/09/16 06/04/18 EPINEPHrine [Epipen 2-Olayinka] 0.3 mg IJ ONCE #2 units 04/18/16 06/04/18 Temazepam [Restoril] 1 tab PO DAILY 07/31/16 08/14/17 Magnesium 250 mg PO DAILY 06/21/17 06/04/18 EPINEPHrine [Epipen 2-Olayinka] 0.3 mg IJ ONCE PRN #1 auto.injct 08/14/17 06/04/18 Famotidine [Pepcid] 20 mg PO DAILY #30 tablet 01/18/18 06/04/18 lamoTRIgine [Subvenite] 150 mg ORAL DAILY 06/04/18 06/04/18 - Allergies Allergies/Adverse Reactions: Allergies Allergy/AdvReac Type Severity Reaction Status Date / Time dihydroergotamine Allergy Severe Respiratory Verified 03/08/19 21:16 divalproex sodium Allergy Severe anaphylaxis Verified 03/08/19 21:16 [From Depakote] frovatriptan [Frovatriptan] Allergy Severe anaphylaxis Verified 03/08/19 21:16 metoclopramide HCl * Allergy Severe HTN Verified 03/08/19 21:16 [From Reglan] naratriptan HCl * Allergy Severe anaphylaxis Verified 03/08/19 21:16 [From Amerge] prochlorperazine edisylate * Allergy Severe HTN Verified 03/08/19 21:16 [From Compazine] prochlorperazine maleate * Allergy Severe HTN Verified 03/08/19 21:16 [From Compazine] promethazine HCl * Allergy Severe HTN Verified 03/08/19 21:16 [From Phenergan] rizatriptan benzoate * Allergy Severe anaphylaxis Verified 03/08/19 21:16 [From Maxalt] sumatriptan [From Imitrex] Allergy Severe anaphylaxis Verified 03/08/19 21:16 sumatriptan succinate * Allergy Severe anaphylaxis Verified 03/08/19 21:16 [From Imitrex] vancomycin Allergy Severe nicolette Verified 03/08/19 21:16 syndrome doxycycline Allergy Unknown Unknown Verified 03/08/19 21:16 Antihistamines - Alkylamine AdvReac Severe severe Verified 03/08/19 21:16 anxiety, wheezing, dizziness prednisone AdvReac Severe Hallucinati Verified 03/08/19 21:16 ons diphenhydramine HCl * AdvReac Unknown Unknown Verified 03/08/19 21:16 [From Benadryl] pentosan polysulfate sodium AdvReac Unknown Verified 03/08/19 21:16 [From Elmiron] tape Allergy Hives Uncoded 03/08/19 21:16 - Social History Does the pt smoke?: No Smoking Status: Never smoker Does the pt drink ETOH?: No Does the pt have substance abuse?: No - Immunizations Immunizations are current?: Yes - POLST Patient has POLST: No PD ED PE NORMAL - Vitals Vital signs reviewed: Yes - General General: Alert and oriented X 3, Well developed/nourished, Other (wearing sunglasses in dark room) - HEENT HEENT: Atraumatic, PERRL, EOMI - Neck Neck: No bony TTP - Cardiac Cardiac: RRR, No murmur - Respiratory Respiratory: No respiratory distress, Clear bilaterally - Abdomen Abdomen: Soft, Non tender - Extremities Extremities: No deformity, Normal ROM s pain, No edema - Neuro Neuro: Alert and oriented X 3, account service associate 2-12 intact, Normal speech Eye Opening: Spontaneous Motor: Obeys Commands Verbal: Oriented GCS Score: 15 Results - Vitals Vitals: Vital Signs - 24 hr 03/08/19 03/09/19 21:13 00:05 Temperature 36.6 C 36.7 C Heart Rate 94 96 Respiratory 20 16 Rate Blood Pressure 130/103 H 122/83 H O2 Saturation 99 98 Oxygen O2 Source Room air Oxygen Flow Rate 12 PD MEDICAL DECISION MAKING - ED course Complexity details: reviewed old records, reviewed results, re-evaluated patient, considered differential, d/w patient, d/w family ED course: On reevaluation after medications given as outlined in the care plan recommended by her neurologist, patient reports mild improvement; she says she still is uncomfortable, but she acknowledges she has received the maximum doses allowed according to the care plan. I was willing to give second dose of 0.5mg IV lorazepam prior to discharge Departure - Departure Disposition: 01 Home, Self Care Clinical Impression: Headache Condition: Good Health Concerns: headache Plan of Treatment: medications given in ER, follow up with your neurologist Care Goals: symptom control and prevention of recurrence Assessment: see diagnosis Instructions: ED Cephalgia Unspecified Follow-Up: Zurdo Dunbar PA-C [Primary Care Provider] - Discharge Date/Time: 03/09/19 00:18
[2019-03-08] MEDS ORDERED: LORazepam 2 MG/ML VIAL IVP STA ×2 (22:45→23:48)
[2019-03-09 00:05] VITALS: BP 122/83
== END 2019-03-09 00:18 | disposition home or self-care (01) ==
LOC: ED 21:09
DX: R51 Headache (principal)
CPT/HCPCS: 96361; 96374; 96375; 96376; 99283; 99284; J1170; J2060

== ENCOUNTER 2019-03-17 01:11 | Emergency (ER) | payer MEDICAID ==
--- NOTE | 2019-03-17 01:27 | ED Physician Documentation ---
PD HPI HEADACHE - Stated complaint Stated Complaint: MADSEN - Chief complaint Chief Complaint: Neuro - History obtained from History obtained from: Patient - History of Present Illness Timing - onset: How many days ago (2) Timing - details: Gradual onset, Constant, Waxing and waning Pain level now: 10 Worst headache ever?: No: Worst headache ever? Location: Global Quality: Throbbing, Aching Associated symptoms: Nausea. No: Fever, Stiff neck, Vomiting, Weakness, Numbness Improved by: Rest, Dark room, Quiet Worsened by: Light, Noise, Moving Similar symptoms before: Diagnosis (migraine headache) Recently seen: Emergency Dept (T+R earlier this month for same) - Additional information Additional information: c/o headache c/w her previous migraine headaches for which she has a suggested protocol by her neurologist regarding emergent treatment. She also c/o right jaw "locking up from grinding my teeth from the pain". Review of Systems Constitutional: denies: Fever Eyes: reports: Photophobia GI: reports: Nausea. denies: Vomiting Musculoskeletal: denies: Neck pain Neurologic: reports: Headache. 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 : None HEENT: None Psych: Depression, Anxiety, ADD/ADHD, Post traumatic stress disorder Musculoskeletal: Osteoarthritis, Fibromyalgia Derm: None - Past Surgical History Past Surgical History: Yes General: Appendectomy /USER EXPERIENCE DEVELOPER: Endometrial ablation, Other HEENT: Tonsil/Adenoidectomy - Present Medications Home Medications: Ambulatory Orders Medication Instructions Recorded Confirmed Cholecalciferol [Vitamin D3] 5,000 unit PO DAILY 02/09/16 06/04/18 Pregabalin [Lyrica] 100 mg PO TID 02/09/16 06/04/18 EPINEPHrine [Epipen 2-Olayinka] 0.3 mg IJ ONCE #2 units 04/18/16 06/04/18 Temazepam [Restoril] 1 tab PO DAILY 07/31/16 08/14/17 Magnesium 250 mg PO DAILY 06/21/17 06/04/18 EPINEPHrine [Epipen 2-Olayinka] 0.3 mg IJ ONCE PRN #1 auto.injct 08/14/17 06/04/18 Famotidine [Pepcid] 20 mg PO DAILY #30 tablet 01/18/18 06/04/18 lamoTRIgine [Subvenite] 150 mg ORAL DAILY 06/04/18 06/04/18 Methocarbamol 1,500 mg PO TID PRN #20 tablet 03/17/19 - Allergies Allergies/Adverse Reactions: Allergies Allergy/AdvReac Type Severity Reaction Status Date / Time dihydroergotamine Allergy Severe Respiratory Verified 03/17/19 01:18 divalproex sodium Allergy Severe anaphylaxis Verified 03/17/19 01:18 [From Depakote] frovatriptan [Frovatriptan] Allergy Severe anaphylaxis Verified 03/17/19 01:18 metoclopramide HCl * Allergy Severe HTN Verified 03/17/19 01:18 [From Reglan] naratriptan HCl * Allergy Severe anaphylaxis Verified 03/17/19 01:18 [From Amerge] prochlorperazine edisylate * Allergy Severe HTN Verified 03/17/19 01:18 [From Compazine] prochlorperazine maleate * Allergy Severe HTN Verified 03/17/19 01:18 [From Compazine] promethazine HCl * Allergy Severe HTN Verified 03/17/19 01:18 [From Phenergan] rizatriptan benzoate * Allergy Severe anaphylaxis Verified 03/17/19 01:18 [From Maxalt] sumatriptan [From Imitrex] Allergy Severe anaphylaxis Verified 03/17/19 01:18 sumatriptan succinate * Allergy Severe anaphylaxis Verified 03/17/19 01:18 [From Imitrex] vancomycin Allergy Severe nicolette Verified 03/17/19 01:18 syndrome doxycycline Allergy Unknown Unknown Verified 03/17/19 01:18 Antihistamines - Alkylamine AdvReac Severe severe Verified 03/17/19 01:18 anxiety, wheezing, dizziness prednisone AdvReac Severe Hallucinati Verified 03/17/19 01:18 ons diphenhydramine HCl * AdvReac Unknown Unknown Verified 03/17/19 01:18 [From Benadryl] pentosan polysulfate sodium AdvReac Unknown Verified 03/17/19 01:18 [From Elmiron] tape Allergy Hives Uncoded 03/17/19 01:18 - Social History Does the pt smoke?: No Smoking Status: Never smoker Does the pt drink ETOH?: No Does the pt have substance abuse?: No - Immunizations Immunizations are current?: Yes - POLST Patient has POLST: No PD ED PE NORMAL - Vitals Vital signs reviewed: Yes - General General: Alert and oriented X 3, Well developed/nourished, Other (wearing sunglasses in dark room) - HEENT HEENT: PERRL, EOMI, Moist mucous membranes - Neck Neck: Supple, no meningeal sign - Cardiac Cardiac: No murmur - Respiratory Respiratory: No respiratory distress, Clear bilaterally - Abdomen Abdomen: Soft, Non tender - Neuro Neuro: Alert and oriented X 3, physical medicine specialist 2-12 intact, No motor deficit, No sensory deficit, Normal speech Eye Opening: Spontaneous Motor: Obeys Commands Verbal: Oriented GCS Score: 15 PD ED PE EXPANDED - Cardiac Cardiac: Tachy, Regular Rhythm Results - Vitals Vitals: Vital Signs - 24 hr 03/17/19 03/17/19 03/17/19 01:14 02:11 02:30 Temperature 36.5 C Heart Rate 114 H 87 86 Respiratory 18 16 15 Rate Blood Pressure 114/90 H 131/94 H 128/94 H O2 Saturation 99 100 100 03/17/19 03/17/19 02:44 03:33 Temperature Heart Rate 88 82 Respiratory 16 16 Rate Blood Pressure 122/86 H 122/86 H O2 Saturation 100 100 Oxygen O2 Source Room air Oxygen Flow Rate 12 PD MEDICAL DECISION MAKING - ED course Complexity details: reviewed old records, re-evaluated patient, considered differential, d/w patient ED course: IV established and medications given according to patient's care plan (IV dilaudid, zofran, fluids, toradol, lorazepam, as well as high-flow oxygen). she reported good relief with this regimen, but continued to have right jaw pain and feeling like it was "locked up" (per patient). I gave 1mg lorazepam IV for this prior to discharge (she did not specifically request this, but was agreeable to this to help as a muscle relaxant). Departure - Departure Disposition: 01 Home, Self Care Clinical Impression: Migraine Condition: Good Instructions: ED Headache Migraine Follow-Up: Zurdo Dunbar PA-C [Primary Care Provider] - Prescriptions: Methocarbamol 1,500 mg PO TID PRN #20 tablet PRN Reason: Pain Discharge Date/Time: 03/17/19 03:37
[2019-03-17] MEDS ORDERED: KETOROLAC 30 MG/ML VIAL IVP STA (01:38)
[2019-03-17] MEDS ORDERED: SODIUM CHLORIDE 0.9% 500 ML IV STA (01:38)
[2019-03-17] MEDS ORDERED: ONDANSETRON 4 MG/2 ML VIAL IVP STA (01:38)
[2019-03-17] MEDS ORDERED: HYDROmorphone 1 MG/ML CARPUJECT IVP STA (01:38)
[2019-03-17] MEDS ORDERED: LORazepam 2 MG/ML VIAL IVP STA ×2 (01:41→03:25)
[2019-03-17 02:47] VITALS: BP 122/86
== END 2019-03-17 03:37 | disposition home or self-care (01) ==
LOC: ED 01:11
DX: G43.909 Migraine, unspecified, not intractable, without status migrainosus (principal)
CPT/HCPCS: 96361; 96374; 96375; 96376; 99284; 99285; J1170; J2060

== ENCOUNTER 2019-04-09 18:19 | Emergency (ER) | payer MEDICAID ==
--- NOTE | 2019-04-09 19:08 | ED Physician Documentation ---
History of Present Illness - Stated complaint Stated Complaint: CHEST PX - Chief complaint Chief Complaint: Cardiac - Additonal information Additional information: This is a 33-year-old female with migraines, anxiety, who presents with palpi tations and chest pain. Patient states that she intermittently will get some palpitations and she has been told that she has PVCs, and potentially a dysrhythmia that is unspecfied and has not required specific treatment. She states that the PVCs typically last short period of time and occur when she is sick or stressed. This morning at around 5:30 AM she developed some palpitations like her heart was flip flopping in her chest, she also developed pain over her left chest that radiated to her neck as well as her arm. This lasted for around 30 minutes. She was feeling lightheaded and that she was going to pass out. The symptoms slowly resolved, but she has had intermittent palpitations since then. She denies any fever, cough. She has a history of migraines, she also has has reported history of TIAs as a teenager, she has never had an SC, or catheterization. No history of blood clots. Her breathing feels normal to her right now. Review of Systems Constitutional: denies: Fever Cardiac: reports: Chest pain / pressure, Palpitations Respiratory: denies: Dyspnea, Hemoptysis GI: denies: Abdominal Pain, Vomiting : denies: Dysuria Neurologic: reports: Focal weakness. 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 : None HEENT: None Psych: Depression, Anxiety, ADD/ADHD, Post traumatic stress disorder Musculoskeletal: Osteoarthritis, Fibromyalgia Derm: None - Past Surgical History Past Surgical History: Yes General: Appendectomy /SOFT CRAB SHEDDER: Endometrial ablation, Other HEENT: Tonsil/Adenoidectomy - Present Medications Home Medications: Ambulatory Orders Medication Instructions Recorded Confirmed Cholecalciferol [Vitamin D3] 5,000 unit PO DAILY 02/09/16 06/04/18 Pregabalin [Lyrica] 100 mg PO TID 02/09/16 06/04/18 EPINEPHrine [Epipen 2-Olayinka] 0.3 mg IJ ONCE #2 units 04/18/16 06/04/18 Temazepam [Restoril] 1 tab PO DAILY 07/31/16 08/14/17 Magnesium 250 mg PO DAILY 06/21/17 06/04/18 EPINEPHrine [Epipen 2-Olayinka] 0.3 mg IJ ONCE PRN #1 auto.injct 08/14/17 06/04/18 Famotidine [Pepcid] 20 mg PO DAILY #30 tablet 01/18/18 06/04/18 lamoTRIgine [Subvenite] 150 mg ORAL DAILY 06/04/18 06/04/18 Methocarbamol 1,500 mg PO TID PRN #20 tablet 03/17/19 - Allergies Allergies/Adverse Reactions: Allergies Allergy/AdvReac Type Severity Reaction Status Date / Time sumatriptan succinate * Allergy Severe anaphylaxis Verified 03/17/19 01:18 [From Imitrex] vancomycin Allergy Severe nicolette Verified 03/17/19 01:18 syndrome doxycycline Allergy Unknown Unknown Verified 03/17/19 01:18 Antihistamines - Alkylamine AdvReac Severe severe Verified 03/17/19 01:18 anxiety, wheezing, dizziness prednisone AdvReac Severe Hallucinati Verified 03/17/19 01:18 ons diphenhydramine HCl * AdvReac Unknown Unknown Verified 03/17/19 01:18 [From Benadryl] pentosan polysulfate sodium AdvReac Unknown Verified 03/17/19 01:18 [From Elmiron] tape Allergy Hives Uncoded 03/17/19 01:18 - Social History Does the pt smoke?: No Smoking Status: Never smoker Does the pt drink ETOH?: No Does the pt have substance abuse?: No - Immunizations Immunizations are current?: Yes - POLST Patient has POLST: No PD ED PE NORMAL - Vitals Vital signs reviewed: Yes - General General: Alert and oriented X 3, No acute distress - HEENT HEENT: PERRL - Neck Neck: Supple, no meningeal sign - Cardiac Cardiac: RRR (Occasionally irregular beats that appear to be PVCs on the monitor), No murmur - Respiratory Respiratory: No respiratory distress, Clear bilaterally - Abdomen Abdomen: Soft, Non tender, Non distended - Derm Derm: Warm and dry - Extremities Extremities: No deformity - Neuro Neuro: Alert and oriented X 3, No motor deficit, No sensory deficit, Normal speech - Psych Psych: Normal mood, Normal affect Results - Vitals Vitals: Vital Signs - 24 hr 08/21/19 08/21/19 08/21/19 18:21 18:48 19:03 Temperature 36.7 C Heart Rate 101 H 83 Respiratory 18 17 17 Rate Blood Pressure 122/73 131/96 H O2 Saturation 100 99 04/09/19 04/09/19 04/09/19 19:17 20:02 20:05 Temperature Heart Rate 74 72 Respiratory 17 17 16 Rate Blood Pressure 116/80 121/84 H O2 Saturation 100 100 Oxygen O2 Source Room air - EKG (time done) 18:26 Other comments: Other comments (Rate 110, rhythm sinus with frequent PVC. There is diffuse artifact which makes interpretation difficult, there does not appear to be any significant ST segment elevation or depression, there may be a borderline intraventricular conduction delay) 18:58 Other comments: Other comments (Rate 77, rhythm sinus, there is no ST segment elevation or depression, no T wave inversions. There is some T wave flattening in lead III which is within normal limits. There is a nonspecific intraventricular conduction delay. The MO interval is borderline prolonged. QTc 476.) - Labs Labs: Laboratory Tests 04/09/19 04/09/19 04/09/19 18:56 18:56 18:56 WBC 6.4 RBC 3.92 L Hgb 11.5 L Hct 35.4 L MCV 90.3 MCH 29.3 MCHC 32.5 RDW 12.5 Plt Count 203 MPV 10.9 H Neut # (Auto) 2.9 Lymph # (Auto) 3.0 [place] # (Auto) 0.4 Eos # (Auto) 0.1 Baso # (Auto) 0.0 Absolute Nucleated RBC 0.00 Nucleated RBC % 0.0 Sodium 140 Potassium 3.2 L Chloride 108 Carbon Dioxide 21 Anion Gap 11.0 BUN 14 Creatinine 0.6 Estimated GFR (MDRD) 117 Glucose 88 Calcium 8.7 Total Bilirubin 0.3 AST 27 ALT 30 Alkaline Phosphatase 48 Troponin I High Sens < 2.3 L Total Protein 6.9 Albumin 4.0 Globulin 2.9 Albumin/Globulin Ratio 1.4 Lipase 30 Serum HCG, Qual 04/09/19 18:56 WBC RBC Hgb Hct MCV MCH MCHC RDW Plt Count MPV Neut # (Auto) Lymph # (Auto) [place] # (Auto) Eos # (Auto) Baso # (Auto) Absolute Nucleated RBC Nucleated RBC % Sodium Potassium Chloride Carbon Dioxide Anion Gap BUN Creatinine Estimated GFR (MDRD) Glucose Calcium Total Bilirubin AST ALT Alkaline Phosphatase Troponin I High Sens Total Protein Albumin Globulin Albumin/Globulin Ratio Lipase Serum HCG, Qual NEGATIVE - Rads (name of study) CXR Radiology: Other (Normal 2 view CXR) PD MEDICAL DECISION MAKING - ED course Complexity details: considered differential (ACS, dysrhytmia, PVC, PNA, pneumothorax, vasovagal episode, orthostasis, electrolye abnormality) ED course: On exam patient is well-appearing and is now asymptomatic. In triage her EKG showed PVCs, repeat ~20 minutes later shows no PVCs, no signs of acute ischemia or dysrhytmia. CXR is normal. Labs are notable for an anemia, patient has had no bleeding and this is likely chronic. I shared this result and asked that she follow with her PCP. She also has a mild hypokalemia. I discussed eating foods rich in potassium. Her high-sensitivity troponin is negative, and her chest pain was at ~5AM this morning, so a single-troponin is sufficient. She is low risk for major adverse cardiac event and I highly doubt ACS, I recommend that she follow closely with her PCP and consider establishing with a experimental preflight mechanic. She appears to have at least symptomatic PVCs, and may benefit from beta-blockers. She will discuss this with her doctor. PE considered, however her symptoms have completely resolved and her description of the pain as pressure like and not affected by breathing makes PE exceedingly unlikely. She has no signs of DVT on exam. She is feeling very well and would like to discharge. I reviewed return precautions and she was discharged in the care of her partner. Departure - Departure Disposition: 01 Home, Self Care Clinical Impression: Chest pain Qualifiers: Chest pain type: other chest pain Qualified Code(s): R07.89 - Other chest pain Condition: Good Instructions: ED Chest Pain Atypical Unkn Cause Follow-Up: Zurdo Dunbar PA-C [Primary Care Provider] - Within 1 week (For follow up on anemia, chest pain, and PVCs) Comments: You were seen today for palpitations and for chest pain. I do not see signs of a heart attack or heart strain at this time. You did have some frequent PVCs. You also have an anemia. Please discuss your symptoms as well as the anemia and PVCs with your primary care provider. If you develop changing or worsening chest pain or other concerning symptoms please return to the emergency department Discharge Date/Time: 04/09/19 20:23
[2019-04-09 19:17] LABS: BASOPHILS % (AUTO) 0.3 %; EOSINOPHILS # (AUTO) 0.1 10^3/uL (0.0-0.7); EOSINOPHILS % (AUTO) 1.1 %; HGB - HEMOGLOBIN 11.5 g/dL (12.0-16.0); LYMPHOCYTES % (AUTO) 47.3 %; MEAN CORPUSCULAR HEMOGLOBIN 29.3 pg (27.0-31.0); MEAN CORPUSCULAR HGB CONC 32.5 g/dL (32.0-36.0); MEAN CORPUSCULAR VOLUME 90.3 fL (81.0-99.0); MEAN PLATELET VOLUME 10.9 fL (7.9-10.8); MONOCYTES # (AUTO) 0.4 10^3/uL (0.0-1.0); MONOCYTES % (AUTO) 6.2 %; NEUTROPHILS # (AUTO) 2.9 10^3/uL (1.5-6.6); NEUTROPHILS % (AUTO) 44.9 %; PLT - PLATELET COUNT 203 10^3/uL (130-450); RED BLOOD COUNT 3.92 10^6/uL (4.20-5.40); RED CELL DISTRIBUTION WIDTH 12.5 % (12.0-15.0); WHITE BLOOD COUNT 6.4 x10^3/uL (4.8-10.8)
[2019-04-09 19:28] LABS: ALBUMIN/GLOBULIN RATIO 1.4 (1.0-2.2); BILIRUBIN,TOTAL 0.3 mg/dL (0.2-1.0); CALCIUM 8.7 mg/dL (8.5-10.3); CREATININE 0.6 mg/dL (0.4-1.0); TOTAL PROTEIN 6.9 g/dL (6.7-8.2)
--- NOTE | 2019-04-09 19:29 | XRAY Report ---
Reason: chest discomfort, palpitations Procedure Date: 04/09/2019 Accession Number: [id number] / [id number] Procedure: XR - Chest 2 View X-Ray CPT Code: 77883 FULL RESULT: EXAM: CHEST RADIOGRAPHY EXAM DATE: 04/09/2019 07:15 PM. CLINICAL HISTORY: Chest discomfort, palpitations. COMPARISON: ABDOMEN ACUTE 02/09/2016 2:02 AM. TECHNIQUE: 2 views. FINDINGS: Lungs/Pleura: No focal opacities evident. No interstitial abnormality or pulmonary vascular congestion No pleural effusion. No pneumothorax. Normal volumes. Mediastinum: Heart and mediastinal contours are unremarkable. Other: None. IMPRESSION: Normal 2-view chest radiography. [facility]
[2019-04-09 19:42] LABS: HCG,QUALITATIVE BLOOD NEGATIVE
[2019-04-09 20:03] VITALS: BP 121/84
== END 2019-04-09 20:23 | disposition home or self-care (01) ==
LOC: ED 18:19
DX: R07.89 Other chest pain (principal); I49.3 Ventricular premature depolarization; I45.9 Conduction disorder, unspecified; D64.9 Anemia, unspecified; E87.6 Hypokalemia
CPT/HCPCS: 36415; 71046; 80053; 83690; 84484; 84703; 85025; 93005; 99283; 99284

== ENCOUNTER 2019-04-25 20:06 | Emergency (ER) | payer MEDICAID ==
--- NOTE | 2019-04-25 21:38 | ED Physician Documentation ---
<Thai Dean - Last Filed: 04/26/19 01:47> History of Present Illness - Stated complaint Stated Complaint: HEADACHE - Chief complaint Chief Complaint: Neuro PD PAST MEDICAL HISTORY - Present Medications Home Medications: Ambulatory Orders Medication Instructions Recorded Confirmed Cholecalciferol [Vitamin D3] 5,000 unit PO DAILY 02/09/16 06/04/18 Pregabalin [Lyrica] 100 mg PO TID 02/09/16 06/04/18 EPINEPHrine [Epipen 2-Olayinka] 0.3 mg IJ ONCE #2 units 04/18/16 06/04/18 Temazepam [Restoril] 1 tab PO DAILY 07/31/16 08/14/17 Magnesium 250 mg PO DAILY 06/21/17 06/04/18 EPINEPHrine [Epipen 2-Olayinka] 0.3 mg IJ ONCE PRN #1 auto.injct 08/14/17 06/04/18 Famotidine [Pepcid] 20 mg PO DAILY #30 tablet 01/18/18 06/04/18 lamoTRIgine [Subvenite] 150 mg ORAL DAILY 06/04/18 06/04/18 Methocarbamol 1,500 mg PO TID PRN #20 tablet 03/17/19 - Allergies Allergies/Adverse Reactions: Allergies Allergy/AdvReac Type Severity Reaction Status Date / Time sumatriptan succinate * Allergy Severe anaphylaxis Verified 04/25/19 20:09 [From Imitrex] vancomycin Allergy Severe nicolette Verified 04/25/19 20:09 syndrome doxycycline Allergy Unknown Unknown Verified 04/25/19 20:09 Antihistamines - Alkylamine AdvReac Severe severe Verified 04/25/19 20:09 anxiety, wheezing, dizziness prednisone AdvReac Severe Hallucinati Verified 04/25/19 20:09 ons diphenhydramine HCl * AdvReac Unknown Unknown Verified 04/25/19 20:09 [From Benadryl] pentosan polysulfate sodium AdvReac Unknown Verified 04/25/19 20:09 [From Elmiron] tape Allergy Hives Uncoded 04/25/19 20:09 PD MEDICAL DECISION MAKING - ED course ED course: 32-year-old female with a history of migraine and multiple medication allergies has been treated according to her usual protocol without resolution of her symptoms and she has required repeat doses of medication. She states that she has a lot of stress in her life currently and because she had to take a Plan B she feels that this may have made her headache worse than usual. We have in the past had to treat the patient more aggressively than her usual protocol and the patient would like to avoid a CT scan of the head. She is administered a fourth round of medication with anticipation she will have improvement and we will avoid the CT scan at this point. Departure - Departure Disposition: 01 Home, Self Care Clinical Impression: Migraine Qualifiers: Migraine type: without aura Status migrainosus presence: with status migrainosus Intractability: not intractable Qualified Code(s): G43.001 - Migraine without aura, not intractable, with status migrainosus Condition: Stable Instructions: ED Headache Migraine Follow-Up: Zurdo Dunbar PA-C [Primary Care Provider] - Discharge Date/Time: 04/26/19 02:06 <Woody Fam - Last Filed: 04/27/19 06:47> History of Present Illness - Additonal information Additional information: This is a 34-year-old female with a history of fibromyalgia, posttraumatic stress disorder, migraines, and complex regional pain syndrome, who presents with a headache. Patient has had a headache for 5 days which is been waxing and waning, but it became severe on an hour prior to arrival. It is over the right side of her head sharp stabbing and constant. Patient has a neurologist, and she has a care plan for headaches. She denies numbness or weakness. She endorses photophobia. 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 HEENT: None Psych: Depression, Anxiety, ADD/ADHD, Post traumatic stress disorder Musculoskeletal: Osteoarthritis, Fibromyalgia Derm: None - Past Surgical History Past Surgical History: Yes General: Appendectomy /SURGEON'S ASSISTANT: Endometrial ablation, Other HEENT: Tonsil/Adenoidectomy - Social History Does the pt smoke?: No Smoking Status: Never smoker Does the pt drink ETOH?: No Does the pt have substance abuse?: No - Immunizations Immunizations are current?: Yes - POLST Patient has POLST: No PD ED PE NORMAL - Vitals Vital signs reviewed: Yes - General General: Alert and oriented X 3, Other (Uncomfortable but non-toxic appearing) - HEENT HEENT: PERRL - Neck Neck: Supple, no meningeal sign - Cardiac Cardiac: RRR - Respiratory Respiratory: No respiratory distress, Clear bilaterally - Abdomen Abdomen: Soft, Non tender, Non distended - Derm Derm: Warm and dry - Extremities Extremities: No deformity - Neuro Neuro: Alert and oriented X 3, olap developer 2-12 intact, No motor deficit, No sensory deficit, Normal speech - Psych Psych: Normal mood, Normal affect Results - Vitals Vitals: Oxygen O2 Source Room air - Labs Labs: Laboratory Tests 04/26/19 00:50 Serum HCG, Qual NEGATIVE PD MEDICAL DECISION MAKING - ED course ED course: On examination patient is uncomfortable appearing, sitting in bed and whimpering in pain. She has no obvious neurologic deficits, though she does not dissipate fully in the neurologic exam. She provides me with a note from her neurologist Nils garcia of [facility], this is printed on prescription paper and signed, and it states that patient should receive normal saline, 100% oxygen, 8 mg of Zofran, 30 mg of Toradol, 2mg hydromorphone, and 0.5 mg lorazepam, This should be administered no more than twice a month. This was ordered but with 1mg of hydromorphone instead of 2mg. On repeat evaluation patient states her headache is slightly improved but still severe. She has no neurologic deficits. CT head WO was ordered along with a second round of medications including magnesium, hydromorphone, and 0.5mg lorazepam. Pt requested HCG testing prior to CT head instead of abdominal shielding. If her CT head is negative she will be re-evaluated and if feeling improved is safe for discharge.
[2019-04-25] MEDS ORDERED: HYDROmorphone 2 MG/ML VIAL IVP STA ×4 (21:50→23:37)
[2019-04-25] MEDS ORDERED: SODIUM CHLORIDE 0.9% 1,000 ML IV ONE (21:50)
[2019-04-25] MEDS ORDERED: LORazepam 2 MG/ML VIAL IVP STA ×3 (21:50→23:27)
[2019-04-25] MEDS ORDERED: ONDANSETRON 4 MG/2 ML VIAL IVP STA ×2 (21:50→21:58)
[2019-04-25] MEDS ORDERED: KETOROLAC 30 MG/ML VIAL IVP STA ×2 (21:53→21:58)
[2019-04-25] MEDS ORDERED: MAGNESIUM SULFATE 2 GRAM 2 GM/50 ML BAG IV ONE (23:27)
[2019-04-26 01:17] LABS: HCG,QUALITATIVE BLOOD NEGATIVE
[2019-04-26 01:23] VITALS: BP 114/71
[2019-04-26] MEDS ORDERED: LORazepam 2 MG/ML VIAL IVP STA (01:28)
[2019-04-26] MEDS ORDERED: HYDROmorphone 1 MG/ML CARPUJECT IVP STA (01:28)
== END 2019-04-26 02:06 | disposition home or self-care (01) ==
LOC: ED 20:06
DX: G43.001 Migraine without aura, not intractable, with status migrainosus (principal)
CPT/HCPCS: 36415; 84703; 96365; 96375; 96376; 99284; 99285; J1170; J2060

== ENCOUNTER 2019-06-14 18:33 | Emergency (ER) | payer MEDICAID ==
--- NOTE | 2019-06-14 18:58 | ED Physician Documentation ---
PD HPI HEADACHE - Stated complaint Stated Complaint: HEADACHE - Chief complaint Chief Complaint: Neuro - History obtained from History obtained from: Patient - History of Present Illness Timing - onset: How many days ago (2) Timing - duration: Days (2) Pain level now: >10 Location: Global Associated symptoms: Nausea, Vomiting. No: Fever, Stiff neck Worsened by: Light, Noise, Moving Similar symptoms before: Diagnosis - Additional information Additional information: This a 34-year-old woman who presents with her significant other complaints that she has another migraine. She sees a neurologist who has a treatment plan for her to receive Toradol 30 mg Zofran 8 mg, hydromorphone 2 mg and 12 L of oxygen by nonrebreather mask for 15 minutes and alprazolam 0.5 mg if anxious. She shows me the prescription that this is written on. She says she typically has to come in about monthly to have the treatment plan instituted. She denies any recent illness and denies stating her last menstrual. Was 2 weeks ago. She is a student. This headache is typical of her migraine. Review of Systems Constitutional: denies: Fever Eyes: reports: Photophobia Ears: reports: Other (Phonophobia) Nose: denies: Congestion Throat: denies: Sore throat GI: reports: Nausea, Vomiting : reports: LMP (2 weeks ago). denies: Now EGA Neurologic: reports: Headache. 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 : None HEENT: None Psych: Depression, Anxiety, ADD/ADHD, Post traumatic stress disorder Musculoskeletal: Osteoarthritis, Fibromyalgia Derm: None - Past Surgical History Past Surgical History: Yes General: Appendectomy /DIGITAL COMPUTER OPERATOR: Endometrial ablation, Other HEENT: Tonsil/Adenoidectomy - Present Medications Home Medications: Ambulatory Orders Medication Instructions Recorded Confirmed Cholecalciferol [Vitamin D3] 5,000 unit PO DAILY 02/09/16 06/04/18 Pregabalin [Lyrica] 100 mg PO TID 02/09/16 06/04/18 EPINEPHrine [Epipen 2-Olayinka] 0.3 mg IJ ONCE #2 units 04/18/16 06/04/18 Temazepam [Restoril] 1 tab PO DAILY 07/31/16 08/14/17 Magnesium 250 mg PO DAILY 06/21/17 06/04/18 EPINEPHrine [Epipen 2-Olayinka] 0.3 mg IJ ONCE PRN #1 auto.injct 08/14/17 06/04/18 Famotidine [Pepcid] 20 mg PO DAILY #30 tablet 01/18/18 06/04/18 lamoTRIgine [Subvenite] 150 mg ORAL DAILY 06/04/18 06/04/18 Methocarbamol 1,500 mg PO TID PRN #20 tablet 03/17/19 - Allergies Allergies/Adverse Reactions: Allergies Allergy/AdvReac Type Severity Reaction Status Date / Time sumatriptan succinate * Allergy Severe anaphylaxis Verified 06/14/19 18:44 [From Imitrex] vancomycin Allergy Severe nicolette Verified 06/14/19 18:44 syndrome doxycycline Allergy Unknown Unknown Verified 06/14/19 18:44 Antihistamines - Alkylamine AdvReac Severe severe Verified 06/14/19 18:44 anxiety, wheezing, dizziness prednisone AdvReac Severe Hallucinati Verified 06/14/19 18:44 ons diphenhydramine HCl * AdvReac Unknown Unknown Verified 06/14/19 18:44 [From Benadryl] pentosan polysulfate sodium AdvReac Unknown Verified 06/14/19 18:44 [From Elmiron] tape Allergy Hives Uncoded 04/25/19 20:09 - Social History Does the pt smoke?: No Smoking Status: Never smoker Does the pt drink ETOH?: No Does the pt have substance abuse?: No - Immunizations Immunizations are current?: Yes - POLST Patient has POLST: No PD ED PE NORMAL - Vitals Vital signs reviewed: Yes - General General: Alert and oriented X 3, No acute distress, Well developed/nourished, Other (Thin 34-year-old woman who is curled up into a ball on her right side on the exam table with her hoodie pulled up and dark sunglasses on.) - HEENT HEENT: Atraumatic, PERRL, EOMI, Moist mucous membranes, Pharynx benign - Neck Neck: No adenopathy - Respiratory Respiratory: No respiratory distress - Extremities Extremities: No edema - Neuro Neuro: Alert and oriented X 3, training and development specialist 2-12 intact, No motor deficit, No sensory deficit, Normal speech, Other (Reflexes symmetrical at the quadriceps bilater ally.) - Psych Psych: Normal mood Results - Vitals Vitals: Vital Signs - 24 hr 06/14/19 06/14/19 18:44 19:47 Temperature 36.7 C 37.0 C Heart Rate 89 81 Respiratory 17 16 Rate Blood Pressure 144/80 H 122/80 O2 Saturation 100 98 Oxygen O2 Source Room air PD MEDICAL DECISION MAKING - ED course Complexity details: reviewed old records, re-evaluated patient, d/w patient, d/w family ED course: Patient had an IV started she was given a liter of fluids, Toradol 30 mg IV, Zofran 8 mg IV and 1 mg of Dilaudid. She was also given oxygen by Nonrebreather mask. Nursing staff came in stated that she was requesting the lorazepam from her treatment protocol and was given half milligram. She then had no pain relief and was given another milligram of Dilaudid. When I went back in the room to see how she was doing and to discharge her she said she had no relief. She had never had a headache this bad although I pointed out that she was just here last month and said the same thing and ended up getting a head CT because of the concern that this was a worse headache than normal. She also told me that no one ever breaks up the treatment protocol however reviewing her records, I do not find that to be the case. She wanted to know what else could be done for her headache tonight. She cannot take Benadryl, Decadron or Haldol. She wants something that she can go home and hopefully fall asleep so we discussed another half a milligram of Ativan or another milligram of Dilaudid. I think exceeding any of that runs a risk of respiratory depression. She was given 1 additional milligram of Dilaudid and will be discharged home and encouraged to follow-up with her neurologist. Departure - Departure Disposition: Home, Self Care Clinical Impression: Migraine Qualifiers: Migraine type: unspecified Status migrainosus presence: with status migrainosus Intractability: intractable Qualified Code(s): G43.911 - Migraine, unspecified, intractable, with status migrainosus Condition: Good Instructions: ED Headache Migraine Follow-Up: Nils Park MD [Physician No Access] - Comments: Home tonight and rest. Contact your neurologist if the headache is persisting.
[2019-06-14] MEDS ORDERED: SODIUM CHLORIDE 0.9% 1,000 ML IV ONE (19:15)
[2019-06-14] MEDS ORDERED: ONDANSETRON 4 MG/2 ML VIAL IVP STA (19:15)
[2019-06-14] MEDS ORDERED: HYDROmorphone 1 MG/ML CARPUJECT IVP STA ×3 (19:15→20:50)
[2019-06-14] MEDS ORDERED: KETOROLAC 30 MG/ML VIAL IVP STA (19:15)
[2019-06-14] MEDS ORDERED: LORazepam 2 MG/ML VIAL IVP STA (19:41)
[2019-06-14 21:03] VITALS: BP 125/87
== END 2019-06-14 21:08 | disposition home or self-care (01) ==
LOC: ED 18:33
DX: G43.911 Migraine, unspecified, intractable, with status migrainosus (principal)
CPT/HCPCS: 96361; 96374; 96375; 96376; 99284; 99285; J1170; J2060

== ENCOUNTER 2019-07-24 20:53 | Emergency (ER) | payer MEDICAID ==
[2019-07-24] MEDS ORDERED: KETOROLAC 30 MG/ML VIAL IVP STA (21:55)
[2019-07-24] MEDS ORDERED: HYDROmorphone 1 MG/ML CARPUJECT IVP STA (21:55)
[2019-07-24] MEDS ORDERED: SODIUM CHLORIDE 0.9% 1,000 ML IV ONE (21:55)
[2019-07-24] MEDS ORDERED: ONDANSETRON 4 MG/2 ML VIAL IVP STA (21:56)
[2019-07-24] MEDS ORDERED: LORazepam 2 MG/ML VIAL IVP STA (21:56)
--- NOTE | 2019-07-24 22:02 | ED Physician Documentation ---
PD HPI HEADACHE - Stated complaint Stated Complaint: MIGRAINE - Chief complaint Chief Complaint: Neuro - History obtained from History obtained from: Patient - History of Present Illness Timing - onset: Other (34-year-old with chronic migraines, she is been having more problems recently over the last month because she had Botox injections in her trigger points. Over the last 5 days she is had a gradual onset headache which became more severe today associated with light sensitivity and vomiting. No neck stiffness per se but she does have some neck tightness. 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 : None HEENT: None Psych: Depression, Anxiety, ADD/ADHD, Post traumatic stress disorder Musculoskeletal: Osteoarthritis, Fibromyalgia Derm: None - Past Surgical History Past Surgical History: Yes General: Appendectomy /PAPER RECLAIMING MACHINE OPERATOR: Endometrial ablation, Other HEENT: Tonsil/Adenoidectomy - Present Medications Home Medications: Ambulatory Orders Medication Instructions Recorded Confirmed Cholecalciferol [Vitamin D3] 5,000 unit PO DAILY 02/09/16 06/04/18 Pregabalin [Lyrica] 100 mg PO TID 02/09/16 06/04/18 EPINEPHrine [Epipen 2-Olayinka] 0.3 mg IJ ONCE #2 units 04/18/16 06/04/18 Temazepam [Restoril] 1 tab PO DAILY 07/31/16 08/14/17 Magnesium 250 mg PO DAILY 06/21/17 06/04/18 EPINEPHrine [Epipen 2-Olayinka] 0.3 mg IJ ONCE PRN #1 auto.injct 08/14/17 06/04/18 Famotidine [Pepcid] 20 mg PO DAILY #30 tablet 01/18/18 06/04/18 lamoTRIgine [Subvenite] 150 mg ORAL DAILY 06/04/18 06/04/18 Methocarbamol 1,500 mg PO TID PRN #20 tablet 03/17/19 Lidocaine Patch 5% [Lidoderm Patch] 1 patch TOP DAILY PRN #10 patch 07/24/19 - Allergies Allergies/Adverse Reactions: Allergies Allergy/AdvReac Type Severity Reaction Status Date / Time sumatriptan succinate * Allergy Severe anaphylaxis Verified 07/24/19 21:02 [From Imitrex] vancomycin Allergy Severe nicolette Verified 07/24/19 21:02 syndrome doxycycline Allergy Unknown Unknown Verified 07/24/19 21:02 Antihistamines - Alkylamine AdvReac Severe severe Verified 07/24/19 21:02 anxiety, wheezing, dizziness prednisone AdvReac Severe Hallucinati Verified 07/24/19 21:02 ons diphenhydramine HCl * AdvReac Unknown Unknown Verified 07/24/19 21:02 [From Benadryl] pentosan polysulfate sodium AdvReac Unknown Verified 07/24/19 21:02 [From Elmiron] tape Allergy Hives Uncoded 07/24/19 21:02 - Social History Does the pt smoke?: No Smoking Status: Never smoker Does the pt drink ETOH?: No Does the pt have substance abuse?: No - Immunizations Immunizations are current?: Yes - POLST Patient has POLST: No PD ED PE NORMAL - Vitals Vital signs reviewed: Yes - General General: Alert and oriented X 3, Other (Uncomfortable and photophobic) - HEENT HEENT: PERRL, EOMI - Neck Neck: Supple, no meningeal sign, No bony TTP - Derm Derm: Normal color, Warm and dry - Neuro Neuro: Alert and oriented X 3, electrical project manager 2-12 intact, No motor deficit, No sensory deficit, Normal speech Eye Opening: Spontaneous Motor: Obeys Commands Verbal: Oriented GCS Score: 15 Results - Vitals Vitals: Vital Signs - 24 hr 07/24/19 21:00 Temperature 36.0 C L Heart Rate 80 Respiratory 18 Rate Blood Pressure 126/78 O2 Saturation 99 Oxygen O2 Source Room air PD MEDICAL DECISION MAKING - ED course ED course: She presents to me a new care plan from her neurologist, Dr. Nils Park at [facility]. The recommendation regimen and is written on a prescription pad and presented to me: IV normal saline 500 mL x 1 Oxygen 100% nonrebreather mask in a seated position for 15 minutes Zofran 8 mg IV x1 Lorazepam 0.5 mg IV x1 Ketorolac 30 mg IV x1 Dilaudid 2 mg IV x1 It invites you to contact him if needed, and that this regimen should be given no more than twice monthly. I did make a copy of this and sent it to medical records for scanning into the continuity of care section of the medical record. She was given the above interventions with excellent improvement in her symptom s, also queried about something else for her trigger points. Because of her CRPS she has had bad effects with injections in the past and we settled on a Lidoderm patch Departure - Departure Disposition: 01 Home, Self Care Clinical Impression: Complicated migraine Condition: Good Record reviewed to determine appropriate education?: Yes Instructions: ED Headache Migraine Prescriptions: Lidocaine Patch 5% [Lidoderm Patch] 1 patch TOP DAILY PRN #10 patch PRN Reason: pain Comments: Follow-up with your headache neurologist as soon as possible. Return for new or worsening symptoms.
[2019-07-24] MEDS ORDERED: LIDOCAINE PATCH 5% TOP STA (22:59)
[2019-07-24 23:03] VITALS: BP 131/117
== END 2019-07-25 | disposition home or self-care (01) ==
LOC: ED 20:53
DX: G43.109 Migraine with aura, not intractable, without status migrainosus (principal); G90.50 Complex regional pain syndrome I, unspecified
CPT/HCPCS: 96361; 96374; 96375; 99284; 99285; A9270; J1170; J2060

== ENCOUNTER 2019-08-04 22:51 | Emergency (ER) | payer MEDICAID ==
[2019-08-04] MEDS ORDERED: HYDROmorphone 1 MG/ML CARPUJECT IVP STA (23:12)
[2019-08-04] MEDS ORDERED: SODIUM CHLORIDE 0.9% 1,000 ML IV ONE (23:12)
[2019-08-04] MEDS ORDERED: KETOROLAC 30 MG/ML VIAL IVP STA (23:12)
[2019-08-04] MEDS ORDERED: ONDANSETRON 4 MG/2 ML VIAL IVP STA (23:12)
--- NOTE | 2019-08-04 23:15 | ED Physician Documentation ---
PD HPI HEADACHE - Stated complaint Stated Complaint: MIGRAINE - Chief complaint Chief Complaint: Neuro - History obtained from History obtained from: Patient, Family - History of Present Illness Timing - onset: Last night Timing - onset during: Rest Timing - duration: Days (1) Timing - details: Gradual onset, Still present Location: Global Quality: Throbbing Associated symptoms: Stiff neck, Nausea, Vomiting. No: Fever, Weakness, Numbness, Syncope, Seizure, Eye pain Improved by: Rest, Dark room, Quiet Worsened by: Light, Noise, Moving Contributing factors: No: Anticoagulated Similar symptoms before: Diagnosis (migraine and tension headache) Recently seen: Emergency Dept (11 days ago.) - Additional information Additional information: 34 y/o female with hx of migraines Review of Systems Constitutional: denies: Fever Eyes: reports: Photophobia. denies: Decreased vision Ears: denies: Ear pain Nose: denies: Congestion Throat: denies: Sore throat Cardiac: denies: Chest pain / pressure, Palpitations Respiratory: denies: Dyspnea, Cough GI: reports: Nausea, Vomiting Neurologic: reports: Headache. 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 : None HEENT: None Psych: Depression, Anxiety, ADD/ADHD, Post traumatic stress disorder Musculoskeletal: Osteoarthritis, Fibromyalgia Derm: None - Past Surgical History Past Surgical History: Yes General: Appendectomy /SHIP'S ELECTRONIC WARFARE OFFICER: Endometrial ablation, Other HEENT: Tonsil/Adenoidectomy - Present Medications Home Medications: Ambulatory Orders Medication Instructions Recorded Confirmed Cholecalciferol [Vitamin D3] 5,000 unit PO DAILY 02/09/16 06/04/18 Pregabalin [Lyrica] 100 mg PO TID 02/09/16 06/04/18 EPINEPHrine [Epipen 2-Olayinka] 0.3 mg IJ ONCE #2 units 04/18/16 06/04/18 Temazepam [Restoril] 1 tab PO DAILY 07/31/16 08/14/17 Magnesium 250 mg PO DAILY 06/21/17 06/04/18 EPINEPHrine [Epipen 2-Olayinka] 0.3 mg IJ ONCE PRN #1 auto.injct 08/14/17 06/04/18 Famotidine [Pepcid] 20 mg PO DAILY #30 tablet 01/18/18 06/04/18 lamoTRIgine [Subvenite] 150 mg ORAL DAILY 06/04/18 06/04/18 Methocarbamol 1,500 mg PO TID PRN #20 tablet 03/17/19 Lidocaine Patch 5% [Lidoderm Patch] 1 patch TOP DAILY PRN #10 patch 07/24/19 - Allergies Allergies/Adverse Reactions: Allergies Allergy/AdvReac Type Severity Reaction Status Date / Time sumatriptan succinate * Allergy Severe anaphylaxis Verified 08/04/19 22:55 [From Imitrex] vancomycin Allergy Severe nicolette Verified 08/04/19 22:55 syndrome doxycycline Allergy Unknown Unknown Verified 08/04/19 22:55 Antihistamines - Alkylamine AdvReac Severe severe Verified 08/04/19 22:55 anxiety, wheezing, dizziness prednisone AdvReac Severe Hallucinati Verified 08/04/19 22:55 ons diphenhydramine HCl * AdvReac Unknown Unknown Verified 08/04/19 22:55 [From Benadryl] pentosan polysulfate sodium AdvReac Unknown Verified 08/04/19 22:55 [From Elmiron] tape Allergy Hives Uncoded 08/04/19 22:55 - Social History Does the pt smoke?: No Smoking Status: Never smoker Does the pt drink ETOH?: No Does the pt have substance abuse?: No - Immunizations Immunizations are current?: Yes - POLST Patient has POLST: No PD ED PE NORMAL - Vitals Vital signs reviewed: Yes (normal ) - General General: Well developed/nourished, Other (The patient is in a darkened room with a blanket over her head and dark glasses on. ) - HEENT HEENT: Atraumatic, PERRL, EOMI, Ears normal, Other (dry mucous membranes ) - Neck Neck: Supple, no meningeal sign, No bony TTP - Cardiac Cardiac: RRR, No murmur - Respiratory Respiratory: No respiratory distress, Clear bilaterally - Abdomen Abdomen: Soft, Non tender - Back Back: No CVA TTP, No spinal TTP - Derm Derm: Normal color, Warm and dry, No rash - Extremities Extremities: No deformity, No tenderness to palpate, Normal ROM s pain, No edema, No calf tenderness / cord - Neuro Neuro: Alert and oriented X 3, children's ministries director 2-12 intact, No motor deficit, No sensory deficit, Normal speech Eye Opening: Spontaneous Motor: Obeys Commands Verbal: Oriented GCS Score: 15 - Psych Psych: Normal mood, Other (affect is flat) Results - Vitals Vitals: Vital Signs - 24 hr 08/04/19 08/04/19 22:55 23:25 Temperature 36.8 C 36.1 C L Heart Rate 85 71 Respiratory 14 21 Rate Blood Pressure 104/75 98/63 O2 Saturation 100 99 Oxygen O2 Source Room air PD MEDICAL DECISION MAKING - ED course Complexity details: considered differential, d/w patient, d/w family ED course: 34-year-old female with a migraine her second visit to the emergency department this month. She brings with her her care plan which is now scanned into the continuity of care portion of the record. The patient is administered a cocktail of a liter of saline 30 mg of Toradol intravenously 8 mg of Zofran 2 mg of Dilaudid and 0.5 mg of Ativan. She has improvement but not resolution and 1/3 mg of Dilaudid is administered. She is discharged in stable and improved condition. Departure - Departure Disposition: 01 Home, Self Care Clinical Impression: Migraine Qualifiers: Migraine type: without aura Status migrainosus presence: without status migrainosus Intractability: not intractable Qualified Code(s): G43.009 - Migraine without aura, not intractable, without status migrainosus Condition: Stable Instructions: ED Headache Migraine Follow-Up: Zurdo Dunbar PA-C [Primary Care Provider] - Nils Park MD [Physician No Access] - Discharge Date/Time: 08/05/19 01:08
[2019-08-04] MEDS ORDERED: LORazepam 2 MG/ML VIAL IVP STA (23:16)
[2019-08-04 23:26] VITALS: BP 98/63
[2019-08-05] MEDS ORDERED: HYDROmorphone 1 MG/ML CARPUJECT IVP STA (00:53)
== END 2019-08-05 01:08 | disposition home or self-care (01) ==
LOC: ED 22:51
DX: G43.009 Migraine without aura, not intractable, without status migrainosus (principal)
CPT/HCPCS: 96374; 96375; 96376; 99284; 99285; J1170; J2060

== ENCOUNTER 2019-08-24 09:02 | Emergency (ER) | payer MEDICAID ==
[2019-08-24] MEDS ORDERED: KETOROLAC 15 MG/ML VIAL IVP STA (10:15)
[2019-08-24] MEDS ORDERED: ONDANSETRON 4 MG/2 ML VIAL IVP STA (10:15)
[2019-08-24] MEDS ORDERED: LORazepam 2 MG/ML VIAL IVP STA (10:15)
[2019-08-24] MEDS ORDERED: SODIUM CHLORIDE 0.9% 1,000 ML IV ONE (10:15)
[2019-08-24] MEDS ORDERED: HYDROmorphone 2 MG/ML VIAL IVP STA ×2 (10:15→11:06)
--- NOTE | 2019-08-24 10:18 | ED Physician Documentation ---
History of Present Illness - Stated complaint Stated Complaint: NECK/SHOULDER PX - Chief complaint Chief Complaint: Neuro - Additonal information Additional information: This is a 34-year-old female with a history of migraines, presents with upper back discomfort as well as headache. Patient states that she had a trigger point injection a couple months ago with a neurologist and since then has had some irritation of her upper back and right arm, she began developing a headache yesterday and she was able to improve this with home medications, however last night she woke up in the middle the night and had worsening headache, as well as increasing pain radiating out towards her right arm. She states that it feels like she has her typical migraine, and additionally has some increased irritation from the location of the trigger point injection. She denies weakness or numbness, but she does have discomfort with movement. She Additionally endorses photophobia and nausea. Review of Systems Constitutional: denies: Fever Nose: denies: Rhinorrhea / runny nose Cardiac: denies: Chest pain / pressure Skin: denies: Rash Musculoskeletal: reports: Neck pain Neurologic: reports: Headache PD PAST MEDICAL HISTORY - Past Medical History Cardiovascular: None Respiratory: None Neuro: TIA, Headaches, Migraines Endocrine/Autoimmune: None GI: None RN HEMO DIALYSIS: Endometriosis : None HEENT: None Psych: Depression, Anxiety, ADD/ADHD, Post traumatic stress disorder Musculoskeletal: Osteoarthritis, Fibromyalgia Derm: None - Past Surgical History Past Surgical History: Yes General: Appendectomy /RN HEMO DIALYSIS: Endometrial ablation, Other HEENT: Tonsil/Adenoidectomy - Present Medications Home Medications: Ambulatory Orders Medication Instructions Recorded Confirmed Cholecalciferol [Vitamin D3] 5,000 unit PO DAILY 02/09/16 06/04/18 Pregabalin [Lyrica] 100 mg PO TID 02/09/16 06/04/18 EPINEPHrine [Epipen 2-Olayinka] 0.3 mg IJ ONCE #2 units 04/18/16 06/04/18 Temazepam [Restoril] 1 tab PO DAILY 07/31/16 08/14/17 Magnesium 250 mg PO DAILY 06/21/17 06/04/18 EPINEPHrine [Epipen 2-Olayinka] 0.3 mg IJ ONCE PRN #1 auto.injct 08/14/17 06/04/18 Famotidine [Pepcid] 20 mg PO DAILY #30 tablet 01/18/18 06/04/18 lamoTRIgine [Subvenite] 150 mg ORAL DAILY 06/04/18 06/04/18 methocarbamoL [Methocarbamol] 1,500 mg PO TID PRN #20 tablet 03/17/19 Lidocaine Patch 5% [Lidoderm Patch] 1 patch TOP DAILY PRN #10 patch 07/24/19 - Allergies Allergies/Adverse Reactions: Allergies Allergy/AdvReac Type Severity Reaction Status Date / Time sumatriptan succinate * Allergy Severe anaphylaxis Verified 08/24/19 09:11 [From Imitrex] vancomycin Allergy Severe nicolette Verified 08/24/19 09:11 syndrome doxycycline Allergy Unknown Unknown Verified 08/24/19 09:11 Antihistamines - Alkylamine AdvReac Severe severe Verified 08/24/19 09:11 anxiety, wheezing, dizziness prednisone AdvReac Severe Hallucinati Verified 08/24/19 09:11 ons diphenhydramine HCl * AdvReac Unknown Unknown Verified 08/24/19 09:11 [From Benadryl] pentosan polysulfate sodium AdvReac Unknown Verified 08/24/19 09:11 [From Elmiron] tape Allergy Hives Uncoded 08/04/19 22:55 - Social History Does the pt smoke?: No Smoking Status: Never smoker Does the pt drink ETOH?: No Does the pt have substance abuse?: No - Immunizations Immunizations are current?: Yes - POLST Patient has POLST: No PD ED PE NORMAL - Vitals Vital signs reviewed: Yes - General General: Other (Nontoxic-appearing, wearing sunglasses, appears uncomfortable.) - HEENT HEENT: Atraumatic, PERRL - Neck Neck: Other (No midline neck tenderness she is tender in the paraspinous muscles, she also has some upper thoracic tenderness, though the back is atraumatic in appearance, there are no step-offs.) - Cardiac Cardiac: Other (Mild tachycardia, regular rhythm) - Respiratory Respiratory: No respiratory distress, Clear bilaterally - Derm Derm: Normal color - Extremities Extremities: No deformity - Neuro Neuro: Alert and oriented X 3, director insurance 2-12 intact, No motor deficit, No sensory deficit, Normal speech Results - Vitals Vitals: Oxygen O2 Source Room air PD MEDICAL DECISION MAKING - ED course ED course: Pt is non-toxic appearing on exam, she has tachycardia in triage that resolves quickly. Her headache is her typical migraine without red flags or neurologic findings to suggest intracranial pathology or other more serious cause. Her pain in her upper extremities associated with a trigger point injection is subacute/chronic and is under the care of her neurologist and outpatient providers. No signs of acute trauma or findings to suggest spinal cord compression or other more serious cause of her symptoms. After a migraine cocktail her headache has resolved and she has much improved motion and reduced pain in her arms. She is feeling well and ready to go home. She is very well appearing. I discussed follow up and return precautions and pt was discharged home in good condition in the care of her . Departure - Departure Disposition: Home, Self Care Clinical Impression: Migraine Qualifiers: Migraine type: unspecified Status migrainosus presence: without status migrainosus Intractability: not intractable Qualified Code(s): G43.909 - Migraine, unspecified, not intractable, without status migrainosus Back pain Qualifiers: Back pain location: thoracic back pain Chronicity: unspecified Back pain laterality: unspecified Qualified Code(s): M54.6 - Pain in thoracic spine Condition: Good Comments: You were seen today for headache as well as exacerbation of pain in the trigger point region. I am glad you are feeling better after medications. Please perform the gentle range of motion stretches that we discussed, avoid straining or reinjury of your back or shoulders. Drink plenty of fluids and get adequate rest. If you are having worsening or new concerning symptoms return to the emergency department, otherwise please follow-up with your neurologist and primary care providers Forms: Activity restrictions Discharge Date/Time: 08/24/19 12:51
[2019-08-24] MEDS ORDERED: ONDANSETRON ODT 4 MG TABLET TL STA (12:15)
[2019-08-24 12:48] VITALS: BP 103/76
== END 2019-08-24 12:51 | disposition home or self-care (01) ==
LOC: ED 09:02
DX: G43.909 Migraine, unspecified, not intractable, without status migrainosus (principal); M54.6 Pain in thoracic spine
CPT/HCPCS: 96361; 96374; 96375; 96376; 99284; 99285; J1170; J2060; Q0162

== ENCOUNTER 2019-09-23 11:22 | Emergency (ER) | payer MEDICAID ==
[2019-09-23] MEDS ORDERED: KETOROLAC 30 MG/ML VIAL IVP STA (12:01)
[2019-09-23] MEDS ORDERED: ONDANSETRON 4 MG/2 ML VIAL IVP STA ×2 (12:01→13:20)
[2019-09-23] MEDS ORDERED: HYDROmorphone 2 MG/ML VIAL IVP STA (12:01)
[2019-09-23] MEDS ORDERED: LORazepam 2 MG/ML VIAL IVP STA (12:03)
[2019-09-23] MEDS ORDERED: SODIUM CHLORIDE 0.9% 1,000 ML IV STA (12:05)
--- NOTE | 2019-09-23 12:08 | ED Physician Documentation ---
History of Present Illness - Stated complaint Stated Complaint: HEADACHE/VOMITING - Chief complaint Chief Complaint: Heent - History obtained from History obtained from: Patient (Patient presented to the emergency room with worsening headache for last 1 week. She is known to have migraine headache for last 20 years. Previous encounter was about 1 month ago. This headache is similar to previous episode. Headache is mainly in the frontal area. Photophobia.No neck stiffness. No systemic fever or chills. She has been nausea and vomiting for last 24 hours. Minimum food intake. She is accompanied by her significant other at bedside.Treatment plan provided by He also is accompanied by Dr. garcia. Indicated IV fluid, oxygen, Zofran, Lorazepam, Toradol, Dilaudid.) - History of Present Illness Timing: How many weeks ago (1) Pain level max: 9 Pain level now: 9 Review of Systems Ten Systems: 10 systems reviewed and negative Constitutional: reports: Reviewed and negative Eyes: reports: Decreased vision, Photophobia, Reviewed and negative. denies: Lo ss of vision Ears: reports: Reviewed and negative Nose: reports: Reviewed and negative Throat: reports: Reviewed and negative Cardiac: reports: Reviewed and negative Respiratory: reports: Reviewed and negative GI: reports: Reviewed and negative : reports: Reviewed and negative Skin: reports: Reviewed and negative Musculoskeletal: reports: Reviewed and negative Neurologic: reports: Generalized weakness, Headache. 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 PRODUCER: Endometrial ablation, Other HEENT: Tonsil/Adenoidectomy - Present Medications Home Medications: Ambulatory Orders Medication Instructions Recorded Confirmed Cholecalciferol [Vitamin D3] 5,000 unit PO DAILY 02/09/16 06/04/18 Pregabalin [Lyrica] 100 mg PO TID 02/09/16 06/04/18 EPINEPHrine [Epipen 2-Olayinka] 0.3 mg IJ ONCE #2 units 04/18/16 06/04/18 Temazepam [Restoril] 1 tab PO DAILY 07/31/16 08/14/17 Magnesium 250 mg PO DAILY 06/21/17 06/04/18 EPINEPHrine [Epipen 2-Olayinka] 0.3 mg IJ ONCE PRN #1 auto.injct 08/14/17 06/04/18 Famotidine [Pepcid] 20 mg PO DAILY #30 tablet 01/18/18 06/04/18 lamoTRIgine [Subvenite] 150 mg ORAL DAILY 06/04/18 06/04/18 methocarbamoL [Methocarbamol] 1,500 mg PO TID PRN #20 tablet 03/17/19 Lidocaine Patch 5% [Lidoderm Patch] 1 patch TOP DAILY PRN #10 patch 07/24/19 - Allergies Allergies/Adverse Reactions: Allergies Allergy/AdvReac Type Severity Reaction Status Date / Time sumatriptan succinate * Allergy Severe anaphylaxis Verified 09/23/19 11:33 [From Imitrex] vancomycin Allergy Severe nicolette Verified 09/23/19 11:33 syndrome doxycycline Allergy Unknown Unknown Verified 09/23/19 11:33 Antihistamines - Alkylamine AdvReac Severe severe Verified 09/23/19 11:33 anxiety, wheezing, dizziness prednisone AdvReac Severe Hallucinati Verified 09/23/19 11:33 ons diphenhydramine HCl * AdvReac Unknown Unknown Verified 09/23/19 11:33 [From Benadryl] pentosan polysulfate sodium AdvReac Unknown Verified 09/23/19 11:33 [From Elmiron] tape Allergy Hives Uncoded 08/04/19 22:55 - Social History Does the pt smoke?: No Smoking Status: Never smoker Does the pt drink ETOH?: No Does the pt have substance abuse?: No - Immunizations Immunizations are current?: Yes - POLST Patient has POLST: No PD ED PE NORMAL - Vitals Vital signs reviewed: Yes - General General: Alert and oriented X 3, No acute distress - HEENT HEENT: Atraumatic, PERRL, EOMI, Ears normal, Moist mucous membranes - Neck Neck: Supple, no meningeal sign, No bony TTP, No adenopathy - Cardiac Cardiac: RRR, No murmur, No gallop - Respiratory Respiratory: No respiratory distress, Clear bilaterally - Abdomen Abdomen: Normal bowel sounds, Soft, Non tender, Non distended - Derm Derm: Warm and dry - Extremities Extremities: No deformity - Neuro Neuro: Alert and oriented X 3 - Psych Psych: Normal mood, Normal affect Results - Vitals Vitals: Vital Signs - 24 hr 09/23/19 09/23/19 09/23/19 11:33 13:37 13:39 Temperature 36.9 C 36.5 C Heart Rate 97 64 58 L Respiratory 18 15 18 Rate Blood Pressure 113/82 H 111/72 118/66 O2 Saturation 96 99 98 Oxygen O2 Source Room air PD MEDICAL DECISION MAKING - ED course Complexity details: d/w patient ED course: Patient is known to have migraine headache. She does have a care plan provided by her doctor. We will adhere to this plane and continue monitoring the patient for the next 2 hours in the emergency room. Patient is reassessed at 120, this time she has received 1 L normal saline, her nausea has improved somewhat although full milligram has not been enough for her. She asked for another 4 mg Zofran. Headache is also improved Departure - Departure Disposition: 01 Home, Self Care Clinical Impression: Migraine Qualifiers: Migraine type: unspecified Status migrainosus presence: without status migrainosus Intractability: not intractable Qualified Code(s): G43.909 - Migraine, unspecified, not intractable, without status migrainosus Condition: Stable Instructions: ED Headache Migraine Follow-Up: Zrudo Dunbar PA-C [Primary Care Provider] - Comments: Please follow-up with your primary care doctor for further management of your migraine headache. Forms: Activity restrictions
[2019-09-23 14:21] VITALS: BP 110/72
== END 2019-09-23 14:21 | disposition home or self-care (01) ==
LOC: ED 11:22
DX: G43.909 Migraine, unspecified, not intractable, without status migrainosus (principal); R11.0 Nausea
CPT/HCPCS: 96361; 96374; 96375; 99284; 99285; J1170; J2060

== ENCOUNTER 2019-10-28 21:54 | Outpatient (CLI) | payer MEDICAID | END 2019-10-28 21:55 | disposition EMS.NT | LOC: EMS 21:54 | PROVIDERS: ATTEND Surgery | DX: R55 Syncope and collapse (principal); R51 Headache ==

== ENCOUNTER 2019-11-02 00:41 | Emergency (ER) | payer MEDICAID ==
--- NOTE | 2019-11-02 01:02 | ED Physician Documentation ---
History of Present Illness - Stated complaint Stated Complaint: HEADACHE,VOMITING - Chief complaint Chief Complaint: Neuro - History obtained from History obtained from: Patient (Patient is a 34-year-old female who has chronic migraines report that she fell and hit her head 3 days ago and she is having an intractable migraine. She reports that her neurologist usually sends her here to get her usual migraine cocktail and she is specifically requesting IV Dilaudid and IV Ativan because that is the only thing that works for her and she is allergic to everything else. she says sometimes toradol helps as well as oxygen. she reports that this headache is typical of her usual migraine headaches and it is not sudden in onset, not maximum in intensity and not the worst headache of her life. she denies taking any blood thinners. 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 HEENT: None Psych: Depression, Anxiety, ADD/ADHD, Post traumatic stress disorder Musculoskeletal: Osteoarthritis, Fibromyalgia Derm: None - Past Surgical History Past Surgical History: Yes General: Appendectomy /WINDOW MACHINE OPERATOR: Endometrial ablation, Other HEENT: Tonsil/Adenoidectomy - Present Medications Home Medications: Ambulatory Orders Medication Instructions Recorded Confirmed Cholecalciferol [Vitamin D3] 5,000 unit PO DAILY 02/09/16 06/04/18 Pregabalin [Lyrica] 100 mg PO TID 02/09/16 06/04/18 EPINEPHrine [Epipen 2-Olayinka] 0.3 mg IJ ONCE #2 units 04/18/16 06/04/18 Temazepam [Restoril] 1 tab PO DAILY 07/31/16 08/14/17 Magnesium 250 mg PO DAILY 06/21/17 06/04/18 EPINEPHrine [Epipen 2-Olayinka] 0.3 mg IJ ONCE PRN #1 auto.injct 08/14/17 06/04/18 Famotidine [Pepcid] 20 mg PO DAILY #30 tablet 01/18/18 06/04/18 lamoTRIgine [Subvenite] 150 mg ORAL DAILY 06/04/18 06/04/18 methocarbamoL [Methocarbamol] 1,500 mg PO TID PRN #20 tablet 03/17/19 Lidocaine Patch 5% [Lidoderm Patch] 1 patch TOP DAILY PRN #10 patch 07/24/19 - Allergies Allergies/Adverse Reactions: Allergies Allergy/AdvReac Type Severity Reaction Status Date / Time sumatriptan succinate * Allergy Severe anaphylaxis Verified 11/02/19 00:52 [From Imitrex] vancomycin Allergy Severe nicolette Verified 11/02/19 00:52 syndrome doxycycline Allergy Unknown Unknown Verified 11/02/19 00:52 prochlorperazine Allergy Anaphylaxis Verified 11/02/19 03:37 [From Compazine] promethazine Allergy Anaphylaxis Verified 11/02/19 03:37 Antihistamines - Alkylamine AdvReac Severe severe Verified 11/02/19 00:52 anxiety, wheezing, dizziness prednisone AdvReac Severe Hallucinati Verified 11/02/19 00:52 ons diphenhydramine HCl * AdvReac Unknown Unknown Verified 11/02/19 00:52 [From Benadryl] pentosan polysulfate sodium AdvReac Unknown Verified 11/02/19 00:52 [From Elmiron] tape Allergy Hives Uncoded 11/02/19 00:52 - Social History Does the pt smoke?: No Smoking Status: Never smoker Does the pt drink ETOH?: No Does the pt have substance abuse?: No - Immunizations Immunizations are current?: Yes - POLST Patient has POLST: No Results - Vitals Vitals: Vital Signs - 24 hr 11/02/19 11/02/19 11/02/19 00:45 03:23 03:43 Temperature 37.2 C Heart Rate 108 H 98 65 Respiratory 18 20 18 Rate Blood Pressure 132/86 H 130/82 H O2 Saturation 95 99 98 Oxygen O2 Source Room air - Labs Labs: Laboratory Tests 11/02/19 11/02/19 02:10 02:10 WBC 6.0 RBC 4.17 L Hgb 12.4 Hct 36.8 L MCV 88.2 MCH 29.7 MCHC 33.7 RDW 11.7 L Plt Count 214 MPV 10.5 Neut # (Auto) 2.8 Lymph # (Auto) 2.6 [place] # (Auto) 0.5 Eos # (Auto) 0.1 Baso # (Auto) 0.0 Absolute Nucleated RBC 0.00 Nucleated RBC % 0.0 Sodium 137 Potassium 3.6 Chloride 104 Carbon Dioxide 23 Anion Gap 10.0 BUN 16 Creatinine 0.7 Estimated GFR (MDRD) 97 Glucose 90 Calcium 8.9 PD MEDICAL DECISION MAKING - ED course Complexity details: re-evaluated patient (headache Resolved. Patient updated on results of CAT scan.), d/w patient (explained to this patient that i would not be providing iv dialudid and iv ativan.) Departure - Departure Disposition: 01 Home, Self Care Clinical Impression: Migraine Condition: Stable Instructions: ED Headache Migraine Follow-Up: Zurdo Dunbar PA-C [Primary Care Provider] - Tomorrow
[2019-11-02] MEDS ORDERED: PROMETHAZINE 25 MG/1 ML VIAL IM STA (01:16)
[2019-11-02] MEDS ORDERED: KETOROLAC 60 MG/2 ML VIAL IM STA (01:16)
[2019-11-02] MEDS ORDERED: ONDANSETRON 4 MG/2 ML VIAL IM STA (01:30)
[2019-11-02] MEDS ORDERED: ONDANSETRON ODT 4 MG TABLET TL STA (01:32)
[2019-11-02] MEDS ORDERED: SODIUM CHLORIDE 0.9% 1,000 ML IV ONE ×2 (01:39→03:14)
[2019-11-02] MEDS ORDERED: ONDANSETRON 4 MG/2 ML VIAL IVP STA ×2 (01:39→02:48)
--- NOTE | 2019-11-02 02:06 | CT Report ---
Reason: head injury Procedure Date: 11/02/2019 Accession Number: [id number] / [id number] Procedure: CT - HEAD WO CPT Code: Final Report FULL RESULT: EXAM: CT HEAD EXAM DATE: 11/02/2019 01:56 AM. CLINICAL HISTORY: Head injury. COMPARISON: CT HEAD W/O 08/27/2014 8:23 PM. TECHNIQUE: Multiaxial CT images were obtained from the foramen magnum to the vertex. Reformats: Sagittal and coronal. IV contrast: None. In accordance with CT protocol optimization, one or more of the following dose reduction techniques were utilized for this exam: automated exposure control, adjustment of mA and/or KV based on patient size, or use of iterative reconstructive technique. FINDINGS: Parenchyma: No intraparenchymal hemorrhage. No evidence of mass, midline shift, or CT findings of infarction. Mora-white differentiation is distinct. Extraaxial Spaces: Normal for age. No subdural or epidural collections identified. Ventricles: Normal in size and position. Sinuses and Orbits: Imaged paranasal sinuses, orbits, and mastoids show no significant abnormality. Bones: No evidence of fracture or calvarial defect. Other: None. IMPRESSION: Negative noncontrast head CT. RADIA
[2019-11-02] MEDS ORDERED: KETOROLAC 30 MG/ML VIAL IVP STA (02:28)
[2019-11-02 02:31] LABS: BASOPHILS % (AUTO) 0.7 %; EOSINOPHILS # (AUTO) 0.1 10^3/uL (0.0-0.7); EOSINOPHILS % (AUTO) 0.8 %; HGB - HEMOGLOBIN 12.4 g/dL (12.0-16.0); LYMPHOCYTES # (AUTO) 2.6 10^3/uL (1.5-3.5); LYMPHOCYTES % (AUTO) 43.6 %; MEAN CORPUSCULAR HEMOGLOBIN 29.7 pg (27.0-31.0); MEAN CORPUSCULAR HGB CONC 33.7 g/dL (32.0-36.0); MEAN CORPUSCULAR VOLUME 88.2 fL (81.0-99.0); MEAN PLATELET VOLUME 10.5 fL (7.9-10.8); MONOCYTES # (AUTO) 0.5 10^3/uL (0.0-1.0); NEUTROPHILS # (AUTO) 2.8 10^3/uL (1.5-6.6); NEUTROPHILS % (AUTO) 46.7 %; PLT - PLATELET COUNT 214 10^3/uL (130-450); RED BLOOD COUNT 4.17 10^6/uL (4.20-5.40); RED CELL DISTRIBUTION WIDTH 11.7 % (12.0-15.0)
[2019-11-02 02:36] LABS: CALCIUM 8.9 mg/dL (8.5-10.3); CREATININE 0.7 mg/dL (0.4-1.0)
[2019-11-02 04:02] VITALS: BP 134/78
== END 2019-11-02 04:10 | disposition home or self-care (01) ==
LOC: ED 00:41
DX: G43.919 Migraine, unspecified, intractable, without status migrainosus (principal); S09.90XA Unspecified injury of head, initial encounter; W19.XXXA Unspecified fall, initial encounter
CPT/HCPCS: 36415; 70450; 80048; 85025; 96361; 96374; 96375; 99281

== ENCOUNTER 2020-05-15 16:11 | Emergency (ER) | payer MEDICAID ==
[2020-05-15] MEDS ORDERED: HYDROmorphone 1 MG/ML CARPUJECT IVP STA (18:34)
[2020-05-15] MEDS ORDERED: LORazepam 2 MG/ML VIAL IVP STA (18:34)
[2020-05-15] MEDS ORDERED: SODIUM CHLORIDE 0.9% 1,000 ML IV STA (18:34)
[2020-05-15] MEDS ORDERED: ONDANSETRON 4 MG/2 ML VIAL IVP STA (18:34)
[2020-05-15] MEDS ORDERED: KETOROLAC 30 MG/ML VIAL IVP STA (18:34)
--- NOTE | 2020-05-15 18:37 | ED Physician Documentation ---
PD HPI HEADACHE - Stated complaint Stated Complaint: MADSEN, N/V - Chief complaint Chief Complaint: Neuro - History obtained from History obtained from: Patient - History of Present Illness Timing - onset: Today Timing - onset during: Rest Timing - duration: Days (1) Timing - details: Gradual onset Pain level max: 10 Pain level now: 10 Location: Global Quality: Throbbing Associated symptoms: Nausea, Vomiting, Other (photosensitivity). No: Fever, Stiff neck, Weakness, Numbness, Syncope, Seizure Improved by: Rest, Dark room Worsened by: Light, Noise, Moving Contributing factors: No: Anticoagulated, Possible carbon monoxide, Hypertension, Recent illness, Trauma - Additional information Additional information: Patient states that this is her usual migraine headache. No different than her normal. Review of Systems Ten Systems: 10 systems reviewed and negative Constitutional: denies: Fever, Chills Eyes: reports: Photophobia Respiratory: denies: Cough GI: reports: Nausea, Vomiting. denies: Abdominal Swelling, Diarrhea Skin: denies: Rash Musculoskeletal: denies: Neck pain, Back pain Neurologic: reports: Headache (Gradual onset, holocranial). 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, Other HEENT: Tonsil/Adenoidectomy - Present Medications Home Medications: Ambulatory Orders Medication Instructions Recorded Confirmed Cholecalciferol [Vitamin D3] 5,000 unit PO DAILY 02/09/16 06/04/18 Pregabalin [Lyrica] 100 mg PO TID 02/09/16 06/04/18 EPINEPHrine [Epipen 2-Olayinka] 0.3 mg IJ ONCE #2 units 04/18/16 06/04/18 Temazepam [Restoril] 1 tab PO DAILY 07/31/16 08/14/17 Magnesium 250 mg PO DAILY 06/21/17 06/04/18 EPINEPHrine [Epipen 2-Olayinka] 0.3 mg IJ ONCE PRN #1 auto.injct 08/14/17 06/04/18 Famotidine [Pepcid] 20 mg PO DAILY #30 tablet 01/18/18 06/04/18 lamoTRIgine [Subvenite] 150 mg ORAL DAILY 06/04/18 06/04/18 methocarbamoL [Methocarbamol] 1,500 mg PO TID PRN #20 tablet 03/17/19 Lidocaine Patch 5% [Lidoderm Patch] 1 patch TOP DAILY PRN #10 patch 07/24/19 Oxycodone HCl/Acetaminophen 1 tab PO Q6H PRN #2 tablet 05/15/20 [Percocet 5-325 mg Tablet] - Allergies Allergies/Adverse Reactions: Allergies Allergy/AdvReac Type Severity Reaction Status Date / Time sumatriptan succinate * Allergy Severe anaphylaxis Verified 11/02/19 00:52 [From Imitrex] vancomycin Allergy Severe nicolette Verified 11/02/19 00:52 syndrome doxycycline Allergy Unknown Unknown Verified 11/02/19 00:52 divalproex sodium Allergy Anaphylaxis Verified 05/15/20 16:27 [From Depakote] nortriptyline Allergy Anaphylaxis Verified 05/15/20 16:27 prochlorperazine Allergy Anaphylaxis Verified 11/02/19 03:37 [From Compazine] promethazine Allergy Anaphylaxis Verified 11/02/19 03:37 Antihistamines - Alkylamine AdvReac Severe severe Verified 11/02/19 00:52 anxiety, wheezing, dizziness prednisone AdvReac Severe Hallucinati Verified 11/02/19 00:52 ons diphenhydramine HCl * AdvReac Unknown Unknown Verified 11/02/19 00:52 [From Benadryl] pentosan polysulfate sodium AdvReac Unknown Verified 11/02/19 00:52 [From Elmiron] tape Allergy Hives Uncoded 11/02/19 00:52 - Social History Does the pt smoke?: No Smoking Status: Never smoker Does the pt drink ETOH?: No Does the pt have substance abuse?: No - Immunizations Immunizations are current?: Yes - POLST Patient has POLST: No PD ED PE NORMAL - Vitals Vital signs reviewed: Yes - General General: Alert and oriented X 3, Other (Lying in a darkened room with sunglasses) - HEENT HEENT: Atraumatic, PERRL, Moist mucous membranes - Neck Neck: Supple, no meningeal sign - Cardiac Cardiac: RRR - Respiratory Respiratory: No respiratory distress, Clear bilaterally - Abdomen Abdomen: Soft, Non tender, Non distended - Derm Derm: Warm and dry - Extremities Extremities: No edema - Neuro Neuro: Alert and oriented X 3, scout executive 2-12 intact, No motor deficit, No sensory deficit, Normal speech - Psych Psych: Normal mood, Normal affect Results - Vitals Vitals: Vital Signs - 24 hr 05/15/20 05/15/20 16:22 20:03 Temperature 37.3 C 37.1 C Heart Rate 107 H 68 Respiratory 16 16 Rate Blood Pressure 114/66 110/63 O2 Saturation 99 100 Oxygen O2 Source Nasal cannula Oxygen Flow Rate 2 PD MEDICAL DECISION MAKING - ED course Complexity details: re-evaluated patient, considered differential, d/w patient, d/w family ED course: Patient was given her recommended headache cocktail from her neurologist. Symptoms resolved. Feels much better. We will have her follow-up with her doctor for further care. Patient counseled regarding signs and symptoms for which I believe and urgent re-evaluation would be necessary. Patient with good understanding of and agreement to plan and is comfortable going home at this time This document was made in part using voice recognition software. While efforts are made to proofread this document, sound alike and grammatical errors may occur. Departure - Departure Disposition: 01 Home, Self Care Clinical Impression: Head ache Qualifiers: Headache type: unspecified Headache chronicity pattern: acute headache Intractability: not intractable Qualified Code(s): R51 - Headache Condition: Good Instructions: ED Cephalgia Unspecified Follow-Up: your,doctor as scheduled. [Other] Prescriptions: Oxycodone HCl/Acetaminophen [Percocet 5-325 mg Tablet] 1 tab PO Q6H PRN #2 tablet PRN Reason: pain Comments: Follow-up with your doctor for further care. Return if you worsen. Go home and rest tonight. Forms: Activity restrictions Discharge Date/Time: 05/15/20 21:05
[2020-05-15 20:03] VITALS: BP 110/63
== END 2020-05-15 21:05 | disposition home or self-care (01) ==
LOC: ED 16:11
DX: R51 Headache (principal); R11.2 Nausea with vomiting, unspecified; H53.149 Visual discomfort, unspecified; Z86.69 Personal history of other diseases of the nervous system and sense organs
CPT/HCPCS: 96361; 96374; 96375; 99284; 99285; J1170; J2060

== ENCOUNTER 2020-08-06 14:41 | Outpatient (CLI) | payer MEDICAID | END 2020-08-06 14:42 | disposition home or self-care (01) | LOC: COV 14:41 | PROVIDERS: ATTEND Family Medicine | DX: R53.83 Other fatigue (principal); R43.9 Unspecified disturbances of smell and taste; R11.2 Nausea with vomiting, unspecified; Z20.828 Contact with and (suspected) exposure to other viral communicable diseases ==

== ENCOUNTER 2021-06-06 13:32 | Outpatient (CLI) | payer MEDICAID | END 2021-06-06 13:33 | disposition EMS.NT | LOC: EMS 13:32 | DX: R40.4 Transient alteration of awareness (principal) ==

== ENCOUNTER 2021-06-07 18:46 | Outpatient (CLI) | payer MEDICAID ==
--- NOTE | 2021-06-08 08:17 | XRAY Report ---
PROCEDURE: Knee 3 View RT INDICATIONS: R KNEE PX TECHNIQUE: 3 views of the right knee(s) were acquired. COMPARISON: None. FINDINGS: BONES/JOINT: No acute, displaced fracture or dislocation. No substantial suprapatellar joint effusio n. SOFT TISSUES: No significant abnormality. IMPRESSION: 1.No acute osseous abnormality. If the patient is unable to weight bear, consider magnetic resonance imaging. Reviewed by: Chandler Whitt MD on 06/08/2021 8:16 AM PDT Approved by: Chandler Whitt MD on 06/08/2021 8:16 AM PDT Station ID: [id number]
== END 2021-06-07 23:59 ==
LOC: DI.N 18:46
PROVIDERS: ATTEND Family Medicine
DX: M25.561 Pain in right knee (principal)

== ENCOUNTER 2021-10-24 08:00 | Outpatient (CLI) | payer MEDICAID ==
--- NOTE | 2021-10-24 09:30 | XRAY Report ---
PROCEDURE: Knee 4 View RT INDICATIONS: SPRAIN OF MCL, R KNEE TECHNIQUE: 4 views of the right knee(s) were acquired. COMPARISON: 06/07/2021 FINDINGS: Bones: No fractures or dislocations. No suspicious bony lesions. No significant joint space loss on weightbearing views. Soft tissues: Small suprapatellar joint effusion. No suspicious soft tissue calcifications. IMPRESSION: Right knee without acute osseous abnormalities or malalignment. No significant degenerat yani changes identified. Small suprapatellar joint effusion. If there is continued clinical concern for internal soft tissue derangement, consider further evalua tion with MRI. Reviewed by: Edmar Morales MD on 10/24/2021 9:29 AM PST Approved by: Edmar Morales MD on 10/24/2021 9:29 AM PST Station ID: [id number]
== END 2021-10-24 23:59 | disposition home or self-care (01) ==
LOC: DI.N 08:00
PROVIDERS: ATTEND Orthopaedic Surgery
DX: S83.411A Sprain of medial collateral ligament of right knee, initial encounter (principal); M25.461 Effusion, right knee

== ENCOUNTER 2021-12-08 20:33 | Emergency (ER) | payer MEDICAID ==
--- OUTSIDE RECORDS SUMMARY | 2021-12-08 21:11 | EXTERNAL MEDICAL SUMMARY RPT | Continuity of Care Document ---
:1985 Author Organization [facility] Address [address] [place] [address] Phone Care Team Providers Name Role Phone Cuong MEYER Unavailable Unavailable ENP, Luli Beckman KILN FURNITURE CASTER Unavailable Unavailab le Allergies No information. Encounters No information. Medications No information. Problems date description facility 20211024 Pain in joint involving lower leg All 20211024 Health-related behavior All 20211024 Former smoker All 20211024 Details of drug misuse behavior All 20211024 Tobacco use and exposure All 20211024 Pain of right knee joint All 20211024 Pain in right knee All 20211024 Exercise All 20211024 Alcohol use All 20211021 XR KNEE 4 OR MORE VIEWS All Procedures date description facility 20211021 XR KNEE 4 OR MORE VIEWS All Results No information. Vital Signs date measurement value source 20211024 weight_standard 178 lb 20211024 weight_metric 80.74 kg 20211024 respiration_rate 18 /min 20211024 height_standard 71 in 20211024 height_metric 180.34 cm 20211024 heart_rate 98 /min 20211024 BP_systolic 112 mm[Hg] 20211024 BP_diastolic 73 mm[Hg] 20211024 BMI 24.92 kg/m2 20211024 weight_standard 178 lb 20211024 weight_metric 80.74 kg 20211024 respiration_rate 18 /min 20211024 height_standard 71 in 20211024 height_metric 180.34 cm 20211024 heart_rate 98 /min 20211024 BP_systolic 112 mm[Hg] 20211024 BP_diastolic 73 mm[Hg] 20211024 BMI 24.92 kg/m2
--- NOTE | 2021-12-08 22:17 | ED Physician Documentation ---
PD HPI HEADACHE - Stated complaint Stated Complaint: HEADACHE/VOMIT/PX - Chief complaint Chief Complaint: Neuro - History obtained from History obtained from: Patient - History of Present Illness Timing - onset: Today (this afternoon) Timing - details: Abrupt onset Pain level now: 10 Worst headache ever?: No: Worst headache ever? Location: Global Quality: Throbbing, Aching Associated symptoms: Nausea, Vomiting, Eye pain. No: Fever, Stiff neck Improved by: Rest, Dark room, Quiet Worsened by: Light, Noise Similar symptoms before: Diagnosis (migraine, cluster headaches) Recently seen: Not recently seen - Additional information Additional information: c/o intense migraine (per patient). 10 headache since this afternoon with nausea and vomiting. She took 8mg zofran and was able to tolerate this medication, but subsequently took prescription pain medication which she vomited up. She says this is within the spectrum of previous headaches she has had. Review of Systems Constitutional: reports: Reviewed and negative Eyes: reports: Photophobia Cardiac: reports: Reviewed and negative GI: reports: Nausea, Vomiting. denies: Abdominal Pain : denies: Now EGA Neurologic: reports: Headache. 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: Endometriosis : None HEENT: None Psych: Depression, Anxiety, ADD/ADHD, Post traumatic stress disorder Musculoskeletal: Osteoarthritis, Fibromyalgia Derm: None - Past Surgical History Past Surgical History: Yes General: Appendectomy /ANIMAL ECOLOGIST: Endometrial ablation, Other HEENT: Tonsil/Adenoidectomy - Present Medications Home Medications: Ambulatory Orders Medication Instructions Recorded Confirmed Cholecalciferol [Vitamin D3] 5,000 unit PO DAILY 02/09/16 12/08/21 Pregabalin [Lyrica] 100 mg PO TID 02/09/16 12/08/21 Temazepam [Restoril] 1 tab PO DAILY 07/31/16 12/08/21 Magnesium 250 mg PO DAILY 06/21/17 12/08/21 EPINEPHrine [Epipen 2-Olayinka] 0.3 mg IJ ONCE PRN #1 auto.injct 08/14/17 12/08/21 Dextroamphetamine/Amphetamine 20 mg PO BID 12/08/21 12/08/21 [Adderall 10 mg Tablet] Melatonin 1 mg PO 12/08/21 [place]-3/Dha/Epa/Fish Oil [Fish Oil 1 tab PO DAILY 12/08/21 12/08/21 1,000 mg Softgel] Zinc Citrate [Zinc] 1 tab PO DAILY 12/08/21 12/08/21 ondansetron HCL [Ondansetron HCl] 8 mg SL Q6HR PRN 12/08/21 12/08/21 oxyCODONE [Roxicodone] 10 mg PO Q4HR PRN 12/08/21 12/08/21 - Allergies Allergies/Adverse Reactions: Allergies Allergy/AdvReac Type Severity Reaction Status Date / Time sumatriptan succinate * Allergy Severe anaphylaxis Verified 12/08/21 21:43 [From Imitrex] vancomycin Allergy Severe nicolette Verified 12/08/21 21:43 syndrome doxycycline Allergy Unknown Unknown Verified 12/08/21 21:43 divalproex sodium Allergy Anaphylaxis Verified 12/08/21 21:43 [From Depakote] nortriptyline Allergy Anaphylaxis Verified 12/08/21 21:43 prochlorperazine Allergy Anaphylaxis Verified 12/08/21 21:43 [From Compazine] promethazine Allergy Anaphylaxis Verified 12/08/21 21:43 Antihistamines - Alkylamine AdvReac Severe severe Verified 12/08/21 21:43 anxiety, wheezing, dizziness prednisone AdvReac Severe Hallucinati Verified 12/08/21 21:43 ons diphenhydramine HCl * AdvReac Unknown Unknown Verified 12/08/21 21:43 [From Benadryl] pentosan polysulfate sodium AdvReac Unknown Verified 12/08/21 21:43 [From Elmiron] tape Allergy Hives Uncoded 11/02/19 00:52 - Social History Does the pt smoke?: No Smoking Status: Never smoker Does the pt drink ETOH?: No Does the pt have substance abuse?: No - Immunizations Immunizations are current?: Yes - POLST Patient has POLST: No PD ED PE NORMAL - Vitals Vital signs reviewed: Yes - General General: Alert and oriented X 3, Well developed/nourished, Other (wearing dark sunglasses in room with lights off for patient comfort (due to photophobia)) - Neck Neck: Supple, no meningeal sign - Cardiac Cardiac: RRR, No murmur - Respiratory Respiratory: No respiratory distress, Clear bilaterally - Abdomen Abdomen: Soft, Non tender - Neuro Neuro: Alert and oriented X 3, abattoir manager 2-12 intact, No motor deficit, No sensory deficit, Normal speech Eye Opening: Spontaneous Motor: Obeys Commands Verbal: Oriented GCS Score: 15 Results - Vitals Vitals: Oxygen O2 Source [facility] Oxygen Flow Rate 12 PD MEDICAL DECISION MAKING - ED course Complexity details: reviewed old records, reviewed results, re-evaluated patient, considered differential, d/w patient ED course: patient presents with headache that is typical of her previous headache ED visits. She has a note from her neurologist (Dr. Park) with outlined plan of medications for these headaches and she is given medications according to this protocol (includes 100% oxygen for possible cluster headache); she is given lorazepam, IV NS, toradol, zofran, and dilaudid. On reevaluation, she appears much more comfortable, able to tolerate room lights without sunglasses. She says she feels better, still has some residual headache and some anxiety. I was comfortable ordering 1mg IV lorazepam and PO oxycodone prior to discharge. Return precautions discussed. No testing performed tonight, as she has had many similar previous ED visits for headache with similar outcome with these medications. Departure - Departure Disposition: 01 Home, Self Care Clinical Impression: Migraine Qualifiers: Migraine type: unspecified Status migrainosus presence: with status migrainosus Intractability: not intractable Qualified Code(s): G43.901 - Migraine, unspecified, not intractable, with status migrainosus Condition: Good Instructions: ED Headache Migraine Follow-Up: TY GOEL MD [Primary Care Provider] - Forms: Activity restrictions Discharge Date/Time: 12/09/21 00:33
[2021-12-08] MEDS: SODIUM CHLORIDE 0.9% 1,000 ML IV STA (22:33)
[2021-12-08] MEDS: LORazepam 2 MG/ML VIAL IVP STA (22:33)
[2021-12-08] MEDS: KETOROLAC 30 MG/ML VIAL IVP STA (22:33)
[2021-12-08] MEDS: ONDANSETRON 4 MG/2 ML VIAL IVP STA (22:33)
[2021-12-08] MEDS: HYDROmorphone 1 MG/ML CARPUJECT IVP STA (22:33)
[2021-12-08 23:08] VITALS: BP 118/81
[2021-12-09] MEDS: oxyCODONE 5 MG TABLET PO STA (00:19)
[2021-12-09] MEDS: LORazepam 2 MG/ML VIAL IVP STA (00:19)
== END 2021-12-09 00:33 | disposition home or self-care (01) ==
LOC: ED 20:33
DX: G43.901 Migraine, unspecified, not intractable, with status migrainosus (principal)
CPT/HCPCS: 96374; 96375; 99284; 99285; A9270; J1170; J2060

== ENCOUNTER 2022-01-09 18:27 | Outpatient (CLI) | payer MEDICAID | END 2022-01-09 18:28 | disposition critical access hospital (66) | LOC: EMS 18:27 | DX: T63.441A Toxic effect of venom of bees, accidental (unintentional), initial encounter (principal); R06.2 Wheezing | CPT/HCPCS: A0425; A0427; A0999 ==

== ENCOUNTER 2022-01-09 18:46 | Emergency (ER) | payer MEDICAID ==
--- NOTE | 2022-01-09 18:57 | ED Physician Documentation ---
History of Present Illness - Stated complaint Stated Complaint: BEE STING, WHEEZING, EDEMA - Chief complaint Chief Complaint: Allergic Rx - History obtained from History obtained from: Patient - Additonal information Additional information: 36-year-old woman with history of anaphylaxis to bee stings presents after a bee sting to the right leg with angioedema and wheezing resolved after 2 doses of IM epinephrine. She is feeling okay now but feeling like she might get a headache. She has had migraines in the past after epinephrine. Note no other therapeutics are given given her extensive allergy list including Benadryl and steroids. 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 : None HEENT: None Psych: Depression, Anxiety, ADD/ADHD, Post traumatic stress disorder Musculoskeletal: Osteoarthritis, Fibromyalgia Derm: None - Past Surgical History Past Surgical History: Yes General: Appendectomy /DIPLOMA DENTAL ASSISTANT: Endometrial ablation, Other HEENT: Tonsil/Adenoidectomy - Present Medications Home Medications: Ambulatory Orders Medication Instructions Recorded Confirmed Cholecalciferol [Vitamin D3] 5,000 unit PO DAILY 02/09/16 01/09/22 Pregabalin [Lyrica] 100 mg PO TID 02/09/16 01/09/22 Temazepam [Restoril] 1 tab PO DAILY 07/31/16 01/09/22 Magnesium 250 mg PO DAILY 06/21/17 01/09/22 EPINEPHrine [Epipen 2-Olayinka] 0.3 mg IJ ONCE PRN #1 auto.injct 08/14/17 01/09/22 Dextroamphetamine/Amphetamine 20 mg PO BID 12/08/21 01/09/22 [Adderall 10 mg Tablet] Melatonin 1 mg PO HS PRN 12/08/21 01/09/22 [place]-3/Dha/Epa/Fish Oil [Fish Oil 1 tab PO DAILY 12/08/21 01/09/22 1,000 mg Softgel] Zinc Citrate [Zinc] 1 tab PO DAILY 12/08/21 01/09/22 ondansetron HCL [Ondansetron HCl] 8 mg SL Q6HR PRN 12/08/21 01/09/22 oxyCODONE [Roxicodone] 10 mg PO Q4HR PRN 12/08/21 01/09/22 clonazePAM [Clonazepam] 1 mg PO BID PRN 01/09/22 01/09/22 - Allergies Allergies/Adverse Reactions: Allergies Allergy/AdvReac Type Severity Reaction Status Date / Time sumatriptan succinate * Allergy Severe anaphylaxis Verified 12/08/21 21:43 [From Imitrex] vancomycin Allergy Severe nicolette Verified 12/08/21 21:43 syndrome doxycycline Allergy Unknown Unknown Verified 12/08/21 21:43 divalproex sodium Allergy Anaphylaxis Verified 12/08/21 21:43 [From Depakote] nortriptyline Allergy Anaphylaxis Verified 12/08/21 21:43 prochlorperazine Allergy Anaphylaxis Verified 12/08/21 21:43 [From Compazine] promethazine Allergy Anaphylaxis Verified 12/08/21 21:43 Antihistamines - Alkylamine AdvReac Severe severe Verified 12/08/21 21:43 anxiety, wheezing, dizziness prednisone AdvReac Severe Hallucinati Verified 12/08/21 21:43 ons diphenhydramine HCl * AdvReac Unknown Unknown Verified 12/08/21 21:43 [From Benadryl] pentosan polysulfate sodium AdvReac Unknown Verified 12/08/21 21:43 [From Elmiron] tape Allergy Hives Uncoded 11/02/19 00:52 - Social History Does the pt smoke?: No Smoking Status: Never smoker Does the pt drink ETOH?: No Does the pt have substance abuse?: No - Immunizations Immunizations are current?: Yes - POLST Patient has POLST: No PD ED PE NORMAL - Vitals Vital signs reviewed: Yes - General General: Alert and oriented X 3, No acute distress - HEENT HEENT: Other (Previously described angioedema from paramedics has resolved) - Neck Neck: Supple, no meningeal sign, No bony TTP - Cardiac Cardiac: RRR, No murmur - Respiratory Respiratory: No respiratory distress, Clear bilaterally - Derm Derm: No rash - Neuro Neuro: Alert and oriented X 3, Normal speech Results - Vitals Vitals: Vital Signs - 24 hr 01/09/22 01/09/22 01/09/22 18:50 19:15 19:39 Temperature 37.6 C Heart Rate 105 H 91 94 Respiratory 20 21 13 Rate Blood Pressure 123/85 H 127/85 H 118/89 H O2 Saturation 100 100 100 01/09/22 01/09/22 01/09/22 20:12 20:30 21:12 Temperature Heart Rate 90 75 98 Respiratory 21 10 L 17 Rate Blood Pressure 125/75 112/66 101/68 O2 Saturation 100 99 100 Oxygen O2 Source Room air PD MEDICAL DECISION MAKING - ED course ED course: 36-year-old woman with 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 She was observed here for several hours without evidence of relapse. She did develop a migraine headache after administration of epinephrine which is not uncommon for her and she was administered 2 mg of Dilaudid IM with improvement albeit not relief. We considered other options, but I have an extensive history with this patient and many therapeutics end up making her worse. Departure - Departure Clinical Impression: Allergic reaction Qualifiers: Encounter type: initial encounter Qualified Code(s): T78.40XA - Allergy, unspecified, initial encounter Condition: Good Record reviewed to determine appropriate education?: Yes Instructions: ED Bite Sting Insect Gen Allergic React
--- OUTSIDE RECORDS SUMMARY | 2022-01-09 19:03 | EXTERNAL MEDICAL SUMMARY RPT | Continuity of Care Document ---
:1985 Author Organization [facility] Address [address] [place] [address] Phone Care Team Providers Name Role Phone Luli DAVILA Unavailable Unavailab howard MEYER, Cuong Hyman Unavailable Unavailable Allergies No information. Encounters No information. Medications [...]
[2022-01-09] MEDS ORDERED: ONDANSETRON ODT 4 MG TABLET TL STA ×2 (19:22→20:12)
[2022-01-09] MEDS ORDERED: HYDROmorphone 1 MG/ML CARPUJECT IM STA ×2 (20:03→21:57)
[2022-01-09] MEDS ORDERED: KETOROLAC 60 MG/2 ML VIAL IM STA (21:57)
[2022-01-09 22:27] VITALS: BP 114/76
== END 2022-01-09 22:28 | disposition home or self-care (01) ==
LOC: EDUNIT# → ED 18:46
DX: T78.40XA Allergy, unspecified, initial encounter (principal); W57.XXXA Bitten or stung by nonvenomous insect and other nonvenomous arthropods, initial encounter
CPT/HCPCS: 96372; 99282; 99284; J1170; Q0162

== ENCOUNTER 2022-02-01 06:55 | Outpatient (CLI) | payer MEDICAID | END 2022-02-01 06:56 | disposition critical access hospital (66) | LOC: EMS 06:55 | DX: T40.601A Poisoning by unspecified narcotics, accidental (unintentional), initial encounter (principal); R09.2 Respiratory arrest | CPT/HCPCS: A0425; A0427; A0999 ==

== ENCOUNTER 2022-02-01 07:16 | Emergency (ER) | payer MEDICAID ==
[2022-02-01] MEDS ORDERED: ONDANSETRON 4 MG/2 ML VIAL IVP STA ×2 (07:19→08:18)
[2022-02-01] MEDS ORDERED: KETOROLAC 15 MG/ML VIAL IVP STA (07:19)
[2022-02-01] MEDS ORDERED: SODIUM CHLORIDE 0.9% 1,000 ML IV STA (07:19)
--- NOTE | 2022-02-01 07:20 | ED Physician Documentation ---
PD HPI HEADACHE - Stated complaint Stated Complaint: OD - History obtained from History obtained from: Patient, EMS - Additional information Additional information: 36-year-old woman with chronic headaches, her gave her her usual meds this morning which include clonazepam, 10 mg of oxycodone and Tylenol for her headache. Subsequently she became obtunded and cyanotic. Reportedly did CPR and EMS was summoned who gave her 4 mg of nasal Narcan with resolution of her altered mental status. Still has a bad headache but not worse than her usual and significant nausea despite 4 mg of Zofran in route. 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 : None HEENT: None Psych: Depression, Anxiety, ADD/ADHD, Post traumatic stress disorder Musculoskeletal: Osteoarthritis, Fibromyalgia Derm: None - Past Surgical History Past Surgical History: Yes General: Appendectomy /SEXUAL ASSAULT COUNSELOR: Endometrial ablation, Other HEENT: Tonsil/Adenoidectomy - Present Medications Home Medications: Ambulatory Orders Medication Instructions Recorded Confirmed Cholecalciferol [Vitamin D3] 5,000 unit PO DAILY 02/09/16 01/09/22 Pregabalin [Lyrica] 100 mg PO TID 02/09/16 01/09/22 Temazepam [Restoril] 1 tab PO DAILY 07/31/16 01/09/22 Magnesium 250 mg PO DAILY 06/21/17 01/09/22 EPINEPHrine [Epipen 2-Olayinka] 0.3 mg IJ ONCE PRN #1 auto.injct 08/14/17 01/09/22 Dextroamphetamine/Amphetamine 20 mg PO BID 12/08/21 01/09/22 [Adderall 10 mg Tablet] Melatonin 1 mg PO HS PRN 12/08/21 01/09/22 [place]-3/Dha/Epa/Fish Oil [Fish Oil 1 tab PO DAILY 12/08/21 01/09/22 1,000 mg Softgel] Zinc Citrate [Zinc] 1 tab PO DAILY 12/08/21 01/09/22 ondansetron HCL [Ondansetron HCl] 8 mg SL Q6HR PRN 04/21/22 05/23/22 oxyCODONE [Roxicodone] 10 mg PO Q4HR PRN 12/08/21 01/09/22 EPINEPHrine [Epinephrine] 0.3 mg IJ ONCE PRN #2 dis.syr 01/09/22 clonazePAM [Clonazepam] 1 mg PO BID PRN 01/09/22 01/09/22 - Allergies Allergies/Adverse Reactions: Allergies Allergy/AdvReac Type Severity Reaction Status Date / Time sumatriptan succinate * Allergy Severe anaphylaxis Verified 02/01/22 07:26 [From Imitrex] vancomycin Allergy Severe nicolette Verified 02/01/22 07:26 syndrome doxycycline Allergy Unknown Unknown Verified 02/01/22 07:26 divalproex sodium Allergy Anaphylaxis Verified 02/01/22 07:26 [From Depakote] nortriptyline Allergy Anaphylaxis Verified 02/01/22 07:26 prochlorperazine Allergy Anaphylaxis Verified 02/01/22 07:26 [From Compazine] promethazine Allergy Anaphylaxis Verified 02/01/22 07:26 Antihistamines - Alkylamine AdvReac Severe severe Verified 02/01/22 07:26 anxiety, wheezing, dizziness prednisone AdvReac Severe Hallucinati Verified 02/01/22 07:26 ons diphenhydramine HCl * AdvReac Unknown Unknown Verified 02/01/22 07:26 [From Benadryl] pentosan polysulfate sodium AdvReac Unknown Verified 02/01/22 07:26 [From Elmiron] tape Allergy Hives Uncoded 02/01/22 07:26 - Social History Does the pt smoke?: No Smoking Status: Never smoker Does the pt drink ETOH?: No Does the pt have substance abuse?: No - Immunizations Immunizations are current?: Yes - POLST Patient has POLST: No PD ED PE NORMAL - Vitals Vital signs reviewed: Yes - General General: Alert and oriented X 3, Other (Retching, uncomfortable) - HEENT HEENT: PERRL, EOMI - Neck Neck: Supple, no meningeal sign, No bony TTP - Abdomen Abdomen: Non tender - Neuro Neuro: Alert and oriented X 3 Eye Opening: Spontaneous Motor: Obeys Commands Verbal: Oriented GCS Score: 15 Results - Vitals Vitals: Vital Signs - 24 hr 0602/01/22 02/01/22 07:24 07:30 08:00 Temperature 36.7 C Heart Rate 75 78 76 Respiratory 17 23 14 Rate Blood Pressure 115/83 H 112/85 H 110/77 O2 Saturation 99 100 100 02/01/22 02/01/22 02/01/22 08:30 09:00 09:30 Temperature Heart Rate 67 65 68 Respiratory 11 L 11 L 10 L Rate Blood Pressure 104/83 H 111/78 103/67 O2 Saturation 99 100 97 02/01/22 10:00 Temperature Heart Rate 76 Respiratory 12 Rate Blood Pressure 104/69 O2 Saturation 97 Oxygen O2 Source Room air - Labs Labs: Laboratory Tests 02/01/22 02/01/22 08:01 08:01 WBC 8.2 RBC 4.64 Hgb 13.5 Hct 41.1 MCV 88.6 MCH 29.1 MCHC 32.8 RDW 11.9 L Plt Count 187 MPV 10.9 H Neut # (Auto) 5.7 Lymph # (Auto) 1.9 [place] # (Auto) 0.5 Eos # (Auto) 0.1 Baso # (Auto) 0.0 Absolute Nucleated RBC 0.00 Nucleated RBC % 0.0 Sodium 139 Potassium 3.6 Chloride 105 Carbon Dioxide 24 Anion Gap 10.0 BUN 13 Creatinine 0.8 Estimated GFR (MDRD) 82 L Glucose 120 H Calcium 8.7 Total Bilirubin 0.5 AST 21 ALT 14 Alkaline Phosphatase 54 Total Protein 7.6 Albumin 4.1 Globulin 3.5 Albumin/Globulin Ratio 1.2 Lipase 255 H PD MEDICAL DECISION MAKING - ED course ED course: CBC and ER panel normal with the exception of lipase at 255. 36-year-old woman with history of chronic migraines developed an apparent res piratory arrest at home last night after her usual medications. She resolved with Narcan prehospital. Here she still had a pretty bad headache and was administered Toradol and Zofran and eventually was sleeping, comfortably but without hypoxemia or bradypnea. She was observed for several hours without worsening of her respiratory status. Eventually her arrived at the bedside and confirmed that it was her usual dosing. The oxycodone filled from the pharmacy was new, but it was with her and I confirmed the pill numbers to be oxycodone 10. The best explanation we have that she was up all night studying as she has final soon and potentially that with the combination of the oxycodone caused the respiratory arrest. They were administered nasal Narcan to go home with. While here her did request further treatments for her routine migraine. She is allergic to most usual therapeutics used for migraines and I did not think it was martinez to dose her with narcotics given the presenting complaint. Departure - Departure Disposition: Home, Self Care Clinical Impression: Narcotic overdose Qualifiers: Encounter type: initial encounter Injury intent: accidental or unintentional Qualified Code(s): T40.601A - Poisoning by unspecified narcotics, accidental (unintentional), initial encounter Condition: Good Record reviewed to determine appropriate education?: Yes Instructions: ED Overdose Accidental Comments: Because of the episode is not clear, our best guess is that it was a combination of your medications and sleeplessness from studying. Try to get some rest today and return for new or worsening symptoms. We are providing nasal Narcan in case of recurrence.
[2022-02-01 09:01] LABS: ALBUMIN 4.1 g/dL (3.2-5.5); ALBUMIN/GLOBULIN RATIO 1.2 (1.0-2.2); BILIRUBIN,TOTAL 0.5 mg/dL (0.2-1.0); CALCIUM 8.7 mg/dL (8.5-10.3); CREATININE 0.8 mg/dL (0.4-1.0); POTASSIUM 3.6 mmol/L (3.5-5.0); TOTAL PROTEIN 7.6 g/dL (6.7-8.2)
[2022-02-01 09:16] LABS: BASOPHILS % (AUTO) 0.2 %; EOSINOPHILS # (AUTO) 0.1 10^3/uL (0.0-0.7); HCT - HEMATOCRIT 41.1 % (37.0-47.0); HGB - HEMOGLOBIN 13.5 g/dL (12.0-16.0); LYMPHOCYTES # (AUTO) 1.9 10^3/uL (1.5-3.5); LYMPHOCYTES % (AUTO) 22.5 %; MEAN CORPUSCULAR HEMOGLOBIN 29.1 pg (27.0-31.0); MEAN CORPUSCULAR HGB CONC 32.8 g/dL (32.0-36.0); MEAN CORPUSCULAR VOLUME 88.6 fL (81.0-99.0); MEAN PLATELET VOLUME 10.9 fL (7.9-10.8); MONOCYTES # (AUTO) 0.5 10^3/uL (0.0-1.0); MONOCYTES % (AUTO) 6.6 %; NEUTROPHILS # (AUTO) 5.7 10^3/uL (1.5-6.6); NEUTROPHILS % (AUTO) 69.6 %; PLT - PLATELET COUNT 187 10^3/uL (130-450); RED BLOOD COUNT 4.64 10^6/uL (4.20-5.40); RED CELL DISTRIBUTION WIDTH 11.9 % (12.0-15.0); WHITE BLOOD COUNT 8.2 x10^3/uL (4.8-10.8)
[2022-02-01] MEDS ORDERED: NALOXONE HCL NASAL SPRAY KIT NAS STA (10:04)
[2022-02-01 10:05] VITALS: BP 104/69
== END 2022-02-01 10:39 | disposition home or self-care (01) ==
LOC: EDUNIT# → ED 07:16
DX: T40.601A Poisoning by unspecified narcotics, accidental (unintentional), initial encounter (principal)
CPT/HCPCS: 36415; 80053; 83690; 85025; 96361; 96374; 96375; 99284; G2215

== ENCOUNTER 2022-04-25 18:57 | Emergency (ER) | payer MEDICAID ==
[2022-04-25] MEDS ORDERED: LORazepam 2 MG/ML VIAL IVP STA ×2 (20:52→22:46)
[2022-04-25] MEDS ORDERED: ONDANSETRON 4 MG/2 ML VIAL IVP STA ×3 (20:52→22:46)
[2022-04-25] MEDS ORDERED: HYDROmorphone 1 MG/ML CARPUJECT IVP STA ×3 (20:53→23:25)
[2022-04-25] MEDS ORDERED: KETOROLAC 30 MG/ML VIAL IVP STA (20:53)
--- NOTE | 2022-04-25 20:55 | ED Physician Documentation ---
PD HPI HEADACHE - Stated complaint Stated Complaint: VOMITING/MIGRAINE - Chief complaint Chief Complaint: Neuro - History obtained from History obtained from: Patient - History of Present Illness Timing - onset: Yesterday Timing - details: Gradual onset Pain level now: 9 Worst headache ever?: No: Worst headache ever? Location: Left Quality: Throbbing Associated symptoms: Nausea, Vomiting. No: Fever Improved by: Dark room, Quiet Worsened by: Light, Noise, Moving Contributing factors: No: Anticoagulated, Hypertension Similar symptoms before: Diagnosis (migraine) Recently seen: Emergency Dept - Additional information Additional information: Over 70 previous [facility] ED visits on [facility] records. She presents c/o 1-2 days of left-sided migraine headache with nausea and vomiting, says she can't keep anything down today including fluids. As with previous visits for migraines, she presents a document signed by her neurologist that suggests an approach for these episodes and the medications are ordered (1mg IV dilaudid ordered rather than the 2 recommended commensurate with my leve l of comfort; this is partially based on a ED MD note from January 2022 when she came from home and required CPR for unclear reason after her usual at-home medications were given, recovered rapidly after given narcan; thus I felt more comfortable starting with lower dose of medication, particularly given that there was no indication that the incident involved an overdose of medication). Patient presents with daughter for evaluation of a different issue. Review of Systems Constitutional: denies: Fever, Chills, Sweats Eyes: reports: Photophobia. denies: Loss of vision, Decreased vision Cardiac: reports: Reviewed and negative Respiratory: reports: Reviewed and negative GI: reports: Nausea, Vomiting. denies: Abdominal Pain, Constipation, Diarrhea Neurologic: reports: Headache. 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: Endometriosis : None HEENT: None Psych: Depression, Anxiety, ADD/ADHD, Post traumatic stress disorder Musculoskeletal: Osteoarthritis, Fibromyalgia Derm: None - Past Surgical History Past Surgical History: Yes General: Appendectomy /SALESPERSON WIGS: Endometrial ablation, Other HEENT: Tonsil/Adenoidectomy - Present Medications Home Medications: Ambulatory Orders Medication Instructions Recorded Confirmed Cholecalciferol [Vitamin D3] 5,000 unit PO DAILY 02/09/16 01/09/22 Pregabalin [Lyrica] 100 mg PO TID 02/09/16 01/09/22 Temazepam [Restoril] 1 tab PO DAILY 07/31/16 01/09/22 Magnesium 250 mg PO DAILY 06/21/17 01/09/22 EPINEPHrine [Epipen 2-Olayinka] 0.3 mg IJ ONCE PRN #1 auto.injct 08/14/17 01/09/22 Dextroamphetamine/Amphetamine 20 mg PO BID 12/08/21 01/09/22 [Adderall 10 mg Tablet] Melatonin 1 mg PO HS PRN 12/08/21 01/09/22 [place]-3/Dha/Epa/Fish Oil [Fish Oil 1 tab PO DAILY 12/08/21 01/09/22 1,000 mg Softgel] Zinc Citrate [Zinc] 1 tab PO DAILY 12/08/21 01/09/22 ondansetron HCL [Ondansetron HCl] 8 mg SL Q6HR PRN 12/08/21 01/09/22 oxyCODONE [Roxicodone] 10 mg PO Q4HR PRN 12/08/21 01/09/22 EPINEPHrine [Epinephrine] 0.3 mg IJ ONCE PRN #2 dis.syr 01/09/22 clonazePAM [Clonazepam] 1 mg PO BID PRN 01/09/22 01/09/22 - Allergies Allergies/Adverse Reactions: Allergies Allergy/AdvReac Type Severity Reaction Status Date / Time sumatriptan succinate * Allergy Severe anaphylaxis Verified 03/28/22 14:41 [From Imitrex] vancomycin Allergy Severe nicolette Verified 03/28/22 14:41 syndrome doxycycline Allergy Unknown Unknown Verified 03/28/22 14:41 divalproex sodium Allergy Anaphylaxis Verified 03/28/22 14:41 [From Depakote] nortriptyline Allergy Anaphylaxis Verified 03/28/22 14:41 prochlorperazine Allergy Anaphylaxis Verified 03/28/22 14:41 [From Compazine] promethazine Allergy Anaphylaxis Verified 03/28/22 14:41 Antihistamines - Alkylamine AdvReac Severe severe Verified 03/28/22 14:41 anxiety, wheezing, dizziness prednisone AdvReac Severe Hallucinati Verified 03/28/22 14:41 ons diphenhydramine HCl * AdvReac Unknown Unknown Verified 03/28/22 14:41 [From Benadryl] pentosan polysulfate sodium AdvReac Unknown Verified 03/28/22 14:41 [From Elmiron] ondansetron odt Allergy Anaphylaxis Uncoded 04/25/22 19:05 tape Allergy Hives Uncoded 03/28/22 14:41 - Social History Does the pt smoke?: No Smoking Status: Never smoker Does the pt drink ETOH?: No Does the pt have substance abuse?: No - Immunizations Immunizations are current?: Yes - POLST Patient has POLST: No PD ED PE NORMAL - Vitals Vital signs reviewed: Yes - General General: Alert and oriented X 3, No acute distress, Well developed/nourished - HEENT HEENT: PERRL, EOMI, Moist mucous membranes, Other (photophobic) - Cardiac Cardiac: RRR, No murmur - Respiratory Respiratory: No respiratory distress, Clear bilaterally - Abdomen Abdomen: Soft, Non tender - Neuro Neuro: Alert and oriented X 3, financial reporting consultant 2-12 intact, No motor deficit, No sensory deficit Eye Opening: Spontaneous Motor: Obeys Commands Verbal: Oriented GCS Score: 15 - Free text exam Free text exam: wearing sunglasses in dark room Results - Vitals Vitals: Vital Signs - 24 hr 04/25/22 04/25/22 04/25/22 19:02 22:03 23:10 Temperature 36.5 C Heart Rate 91 80 80 Respiratory 99 H 16 16 Rate Blood Pressure 117/76 O2 Saturation 16 L 100 100 04/26/22 00:22 Temperature 36.5 C Heart Rate 72 Respiratory 16 Rate Blood Pressure 115/72 O2 Saturation 100 Oxygen O2 Source Room air Oxygen Flow Rate 15 - Labs Labs: Laboratory Tests 04/25/22 19:17 POC Whole Bld Glucose 91 PD MEDICAL DECISION MAKING - ED course Complexity details: reviewed old records, reviewed results, re-evaluated patient, considered differential, d/w patient ED course: Given usual medications as well as IV NS and high-flow oxygen. As noted above, I felt more comfortable giving 1mg Dilaudid per dose. Patient says she feels that this was why a second dose did not seem to help (because I had not given 2 mg dilaudid at once). She is then given 1 mg dilaudid to a total of 3mg , as well as a second dose of IV lorazepam 0.5mg and zofran 4mg IV and then discharged. Departure - Departure Disposition: 01 Home, Self Care Clinical Impression: Migraine Qualifiers: Migraine type: with aura Status migrainosus presence: without status migrainosus Intractability: not intractable Qualified Code(s): G43.109 - Migraine with aura, not intractable, without status migrainosus Condition: Good Instructions: ED Headache Migraine Discharge Date/Time: 04/26/22 00:22
[2022-04-25] MEDS ORDERED: SODIUM CHLORIDE 0.9% 1,000 ML IV STA (21:01)
[2022-04-26 00:23] VITALS: BP 115/72
== END 2022-04-26 00:22 | disposition home or self-care (01) ==
LOC: ED 18:57
DX: G43.109 Migraine with aura, not intractable, without status migrainosus (principal)
CPT/HCPCS: 96374; 96375; 99282; 99285; J1170; J2060

== ENCOUNTER 2022-05-25 22:28 | Emergency (ER) | payer MEDICAID ==
[2022-05-25] MEDS ORDERED: HYDROmorphone 2 MG/ML VIAL IVP STA (22:50)
[2022-05-25] MEDS ORDERED: ONDANSETRON 4 MG/2 ML VIAL IVP STA (22:50)
[2022-05-25] MEDS ORDERED: LORazepam 2 MG/ML VIAL IVP STA (22:50)
[2022-05-25] MEDS ORDERED: SODIUM CHLORIDE 0.9% 1,000 ML IV STA (22:50)
[2022-05-25] MEDS ORDERED: KETOROLAC 30 MG/ML VIAL IVP STA (22:50)
[2022-05-25] MEDS ORDERED: ONDANSETRON 4 MG/2 ML VIAL ONE (23:47)
[2022-05-26] MEDS ORDERED: ONDANSETRON 4 MG/2 ML VIAL IVP STA (02:04)
[2022-05-26] MEDS ORDERED: SODIUM CHLORIDE 0.9% 1,000 ML IV STA (02:04)
--- NOTE | 2022-05-26 02:06 | ED Physician Documentation ---
PD HPI HEADACHE - Stated complaint Stated Complaint: MIGRAINE - Chief complaint Chief Complaint: Neuro - History obtained from History obtained from: Patient, Family (spouse in ED at bedside) - History of Present Illness Timing - duration: Days (4) Timing - details: Abrupt onset Location: Global Associated symptoms: Nausea, Vomiting. No: Fever Improved by: Nothing Worsened by: Light Contributing factors: No: Anticoagulated, Trauma Similar symptoms before: Diagnosis (migraine headache) Recently seen: Emergency Dept - Additional information Additional information: c/o 4 days of global headache with nausea vomiting. She says she cannot keep any PO medications down due to the n/v. She has long h/o migraine headaches with frequent ED visits for headache. Michelle is patient's 80th [facility] ED visit since 2013, the majority of which have been for headache. As with previous visits, patient has a care plan with her from her neurologist, Dr. Park and she asks that the medications (and oxygen) be given as per this care plan. She says that this headache is different from her typical migraine headache in that she feels disoriented to time. Review of Systems Constitutional: denies: Fever Cardiac: reports: Reviewed and negative Respiratory: reports: Reviewed and negative GI: reports: Nausea, Vomiting Neurologic: reports: Headache. 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: Endometriosis : None HEENT: None Psych: Depression, Anxiety, ADD/ADHD, Post traumatic stress disorder Musculoskeletal: Osteoarthritis, Fibromyalgia Derm: None - Past Surgical History Past Surgical History: Yes General: Appendectomy /SUPERVISOR TRUST ACCOUNTS: Endometrial ablation, Other HEENT: Tonsil/Adenoidectomy - Present Medications Home Medications: Ambulatory Orders Medication Instructions Recorded Confirmed Cholecalciferol [Vitamin D3] 5,000 unit PO DAILY 02/09/16 01/09/22 Pregabalin [Lyrica] 100 mg PO TID 02/09/16 01/09/22 Temazepam [Restoril] 1 tab PO DAILY 07/31/16 01/09/22 Magnesium 250 mg PO DAILY 06/21/17 01/09/22 EPINEPHrine [Epipen 2-Olayinka] 0.3 mg IJ ONCE PRN #1 auto.injct 08/14/17 01/09/22 Dextroamphetamine/Amphetamine 20 mg PO BID 12/08/21 01/09/22 [Adderall 10 mg Tablet] Melatonin 1 mg PO HS PRN 12/08/21 01/09/22 [place]-3/Dha/Epa/Fish Oil [Fish Oil 1 tab PO DAILY 12/08/21 01/09/22 1,000 mg Softgel] Zinc Citrate [Zinc] 1 tab PO DAILY 12/08/21 01/09/22 ondansetron HCL [Ondansetron HCl] 8 mg SL Q6HR PRN 12/08/21 01/09/22 oxyCODONE [Roxicodone] 10 mg PO Q4HR PRN 12/08/21 01/09/22 EPINEPHrine [Epinephrine] 0.3 mg IJ ONCE PRN #2 dis.syr 01/09/22 clonazePAM [Clonazepam] 1 mg PO BID PRN 01/09/22 01/09/22 - Allergies Allergies/Adverse Reactions: Allergies Allergy/AdvReac Type Severity Reaction Status Date / Time sumatriptan succinate * Allergy Severe anaphylaxis Verified 05/25/22 22:38 [From Imitrex] vancomycin Allergy Severe nicolette Verified 05/25/22 22:38 syndrome doxycycline Allergy Unknown Unknown Verified 05/25/22 22:38 divalproex sodium Allergy Anaphylaxis Verified 05/25/22 22:38 [From Depakote] nortriptyline Allergy Anaphylaxis Verified 05/25/22 22:38 prochlorperazine Allergy Anaphylaxis Verified 05/25/22 22:38 [From Compazine] promethazine Allergy Anaphylaxis Verified 05/25/22 22:38 Antihistamines - Alkylamine AdvReac Severe severe Verified 05/25/22 22:38 anxiety, wheezing, dizziness prednisone AdvReac Severe Hallucinati Verified 05/25/22 22:38 ons diphenhydramine HCl * AdvReac Unknown Unknown Verified 05/25/22 22:38 [From Benadryl] pentosan polysulfate sodium AdvReac Unknown Verified 05/25/22 22:38 [From Elmiron] ondansetron odt Allergy Anaphylaxis Uncoded 05/25/22 22:38 tape Allergy Hives Uncoded 05/25/22 22:38 - Social History Does the pt smoke?: No Smoking Status: Never smoker Does the pt drink ETOH?: No Does the pt have substance abuse?: No - Immunizations Immunizations are current?: Yes - POLST Patient has POLST: No PD ED PE NORMAL - Vitals Vital signs reviewed: Yes - General General: Well developed/nourished, Other (curled up in a ball on stretcher wearing sunglasses underneath the anthony of a sweatshirt and holding blanket over the sweatshirt anthony. She is crying, answers quietly and difficult to hear at times) - HEENT HEENT: PERRL - Neck Neck: Supple, no meningeal sign - Cardiac Cardiac: RRR, No murmur - Respiratory Respiratory: No respiratory distress, Clear bilaterally - Neuro Neuro: No motor deficit Eye Opening: Spontaneous Motor: Obeys Commands Verbal: Oriented GCS Score: 15 Results - Vitals Vitals: Vital Signs - 24 hr 05/25/22 05/26/22 22:35 04:56 Temperature 36.8 C Heart Rate 99 88 Respiratory 14 18 Rate Blood Pressure 121/85 H 124/74 O2 Saturation 98 100 Oxygen O2 Source Room air Oxygen Flow Rate 15 PD MEDICAL DECISION MAKING - ED course Complexity details: reviewed old records, re-evaluated patient, considered differential, d/w patient ED course: patient c/o headache , n/v to the point of not being able to keep any PO down at home including medications. Spouse in ED at bedside, produces a note outlining a care plan for patient's ED treatment for migraine headaches and spouse and patient request adherence to this plan. This plan is noted on many previous ED visits and it recommends Dilaudid 2mg IV, toradol 30mg IV, lorazepam 0.5mg IV, zofran 8 mg IV, 500cc NS IV, and 100% NRB oxygen. All of these medications are given in these doses and oxygen placed as per this care plan. On reevaluation, she is still under covers/anthony of sweatshirt, crying and reports no change in symptoms. As I have done on some of her previous visits, I explained to her that the point of adhering to a care plan can be defeated by giving more medications than the plan recommends, unless there is a clear and compelling reason to deviate from the care plan. Patient insists she has had no improvement with the medications given and that this episode is different in that she is having difficulty with recalling timeframes of past several days. A long conversation ensued in which I tried to ascertain what non-narcotic medications she has had in the past that have helped with her symptoms, but no other medications were appropriate to this situation due to either ineffectiveness in the past (such as acetaminophen) or allergies (extensive list of stated medication allergies). I offered to give another dose of zofran, another bolus of IV fluids, and trial of PO medication (such as oxycodone). She says she cannot take PO medications because she has been vomiting whenever she tries PO medications. I explained that if she is certain that there are differences between any previous migraine headaches and this episode, a CT head would be my recommendation so as to ensure there are no acute , concerning findings such as bleeding or a mass. Her most recent CTH was in March of 2022 (two months ago). Patient could not provide an answer either way (agreeable to the fluids, zofran, and CTH), instead diverting the conversation (for example asking that I contact her neurologist, then saying her doctor recently mentioned plans for possible MRI at some point). I then was told of a critical lab result on another patient and thus had to leave the room , but I explained before I left that I would put the orders in for the zofran, IV fluids, and CT head so as to move forward in trying to achieve an end-point for this encounter. I was subsequently told by ED RN that patient is accepting of the IV fluids but does not want the zofran nor the CTH. However, I was also informed by ED RN that patient is now saying she needs a pelvic exam due to pelvic pain and a recommendation by one of her doctors. Additionally, ED RN says patient's is going to their car to get her medications that she takes at home so that she can take an anti-anxiety medication, which would seem to contradict patient's insistence that she would not try any PO medications on most recent reevaluation due to her being certain she would vomit medication back up. I again reconvened with the patient and her spouse. I asked that not give patient PO medication, as patient has indicated to me several times that she cannot take any PO due to n/v. I then asked for clarification regarding her request for a pelvic exam. Patient says she has been having pelvic pain and pelvic discomfort "like a bowling ball" (per patient) for several days. She says she was in communication via text/email with one of her doctors and there was a concern for rectocele and that patient was told she should go directly to an emergency department. Patient says this recommendation was communicated to her on Sunday (three days ago). Patient recalls specific day and time of this communication as well as specifics of the text messages she received, which contradicts patient's insistence that she is disoriented to time over past several days. Patient shows me a message she received from her doctor that indicates a recommendation that patient seek urgent evaluation for a pelvic exam. I explained to patient that I would be focusing on her emergent complaint of severe headache and that she should seek prompt follow up for her pelvic discomfort (thus differentiating between urgent versus emergent), she says, and shows me, another text which recommends evaluation in an ED for her severe pelvic pain (patient specifically points out that the message says "ED"). I asked why she feels the recommendation for ED evaluation of her pelvic pain must be adhered to now when she did not follow the recommendation when it was communicated to her 3 days ago. She says she was too busy taking care of one of her children's medical issues, and now that she is in ED she wants a pelvic exam performed due to concern for rectocele. She also requests a specific ED RN to balance wheel screw hole driller (not the ED RN assigned to her currently) and expresses that she would strongly prefer a female perform the exam. I explained that I am the only physician on duty at this time. I expressed my confusion as to why she has not made any mention of pelvic pain until several hours into ED stay that has until now been focussed on treatment of her headache. During this conversation, patient tells me twice that if I discharge her without evaluating her pelvic c/o, she will go to credit front office developer and check back in. I explained to patient that it is unlikely that, generally, a pelvic exam alone would be insufficient to evaluate severe pelvic pain and that my recommendation is basic blood tests and a pelvic ultrasound. I explained that I would order these tests but that the seo executive is not on duty until 6 AM. She again does not provide a definitely acceptance nor rejection of these recommendations and I again had to attend to other patients while she is deciding. I subsequently reconvened with patient and spouse. At this point the patient's spouse says both he and the patient do not feel comfortable with me performing a pelvic exam on her. I again returned to the concepts I had discussed with them the last time I was in the room (that my recommendation is to start with blood tests and a pelvic ultrasound, and consideration of performing a pelvic exam after these tests are resulted). Patient and spouse request discharge and they say the will go to a walk-in or urgent care center for evaluation of the pelvic pain. Patient again and spouse again say that her headache is severe and that the medications given earlier are wearing off. I acquiesced to a 1mg dose of dilaudid IV prior to discharge. Departure - Departure Disposition: 01 Home, Self Care Clinical Impression: Migraine Qualifiers: Migraine type: unspecified Status migrainosus presence: without status migrainosus Intractability: not intractable Qualified Code(s): G43.909 - Migraine, unspecified, not intractable, without status migrainosus Condition: Good Instructions: ED Headache Migraine Discharge Date/Time: 05/26/22 05:00
[2022-05-26] MEDS ORDERED: HYDROmorphone 1 MG/ML CARPUJECT IVP STA (04:45)
[2022-05-26 04:57] VITALS: BP 124/74
== END 2022-05-26 05:00 | disposition home or self-care (01) ==
LOC: ED 22:28
DX: G43.909 Migraine, unspecified, not intractable, without status migrainosus (principal); R10.2 Pelvic and perineal pain
CPT/HCPCS: 96374; 96375; 96376; 99284; 99285; J1170; J2060

== ENCOUNTER 2022-08-26 20:12 | Emergency (ER) | payer MEDICAID ==
[2022-08-26] MEDS ORDERED: KETOROLAC 30 MG/ML VIAL IVP STA (20:50)
[2022-08-26] MEDS ORDERED: SODIUM CHLORIDE 0.9% 1,000 ML IV STA ×2 (20:50→22:53)
[2022-08-26] MEDS ORDERED: HYDROmorphone 1 MG/ML CARPUJECT IVP STA ×2 (20:50→23:45)
[2022-08-26] MEDS ORDERED: ONDANSETRON 4 MG/2 ML VIAL IVP STA ×2 (20:50→21:53)
[2022-08-26] MEDS ORDERED: LORazepam 2 MG/ML VIAL IVP STA (20:51)
[2022-08-26 22:34] LABS: HCG UR QUAL NEGATIVE
--- NOTE | 2022-08-26 23:48 | ED Physician Documentation ---
History of Present Illness - Stated complaint Stated Complaint: VOMITING,MIGRAINE,DEHYDRATION - Chief complaint Chief Complaint: Abd Pain - History obtained from History obtained from: Patient - Additonal information Additional information: Patient is a 37-year-old with a history of migraine and cluster headaches presenting for evaluation of headache that has been ongoing For 4 days. Patient reports that her headache feels similar to other episodes that she has had with a preceding aura. She has associated nausea and vomiting with photophobia. Her neurologist is Dr. Park in [facility]. She has been using Zofran and naproxen without any improvement and is well as p.o. Dilaudid which she is prescribed from her neurologist. She comes with a letter with the treatment plan including Dilaudid, Toradol, Ativan, Zofran.She denies trauma or injury. She denies use of blood thinners. She denies concerns for . Review of Systems Constitutional: denies: Fever Nose: denies: Congestion Cardiac: denies: Chest pain / pressure Respiratory: denies: Dyspnea GI: reports: Nausea, Vomiting. 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: Endometriosis : None HEENT: None Psych: Depression, Anxiety, ADD/ADHD, Post traumatic stress disorder Musculoskeletal: Osteoarthritis, Fibromyalgia Derm: None - Past Surgical History Past Surgical History: Yes General: Appendectomy /CLINICAL SOCIAL WORK AIDE: Endometrial ablation, Other HEENT: Tonsil/Adenoidectomy - Present Medications Home Medications: Ambulatory Orders Medication Instructions Recorded Confirmed Cholecalciferol [Vitamin D3] 5,000 unit PO DAILY 02/09/16 01/09/22 Pregabalin [Lyrica] 100 mg PO TID 02/09/16 01/09/22 Temazepam [Restoril] 1 tab PO DAILY 07/31/16 01/09/22 Magnesium 250 mg PO DAILY 06/21/17 01/09/22 EPINEPHrine [Epipen 2-Olayinka] 0.3 mg IJ ONCE PRN #1 auto.injct 08/14/17 01/09/22 Dextroamphetamine/Amphetamine 20 mg PO BID 12/08/21 01/09/22 [Adderall 10 mg Tablet] Melatonin 1 mg PO HS PRN 12/08/21 01/09/22 Lane-3/Dha/Epa/Fish Oil [Fish Oil 1 tab PO DAILY 12/08/21 01/09/22 1,000 mg Softgel] Zinc Citrate [Zinc] 1 tab PO DAILY 12/08/21 01/09/22 ondansetron HCL [Ondansetron HCl] 8 mg SL Q6HR PRN 12/08/21 01/09/22 oxyCODONE [Roxicodone] 10 mg PO Q4HR PRN 12/08/21 01/09/22 EPINEPHrine [Epinephrine] 0.3 mg IJ ONCE PRN #2 dis.syr 01/09/22 clonazePAM [Clonazepam] 1 mg PO BID PRN 01/09/22 01/09/22 - Allergies Allergies/Adverse Reactions: Allergies Allergy/AdvReac Type Severity Reaction Status Date / Time sumatriptan succinate * Allergy Severe anaphylaxis Verified 05/25/22 22:38 [From Imitrex] vancomycin Allergy Severe nicolette Verified 05/25/22 22:38 syndrome doxycycline Allergy Unknown Unknown Verified 05/25/22 22:38 divalproex sodium Allergy Anaphylaxis Verified 05/25/22 22:38 [From Depakote] nortriptyline Allergy Anaphylaxis Verified 05/25/22 22:38 prochlorperazine Allergy Anaphylaxis Verified 05/25/22 22:38 [From Compazine] promethazine Allergy Anaphylaxis Verified 05/25/22 22:38 Antihistamines - Alkylamine AdvReac Severe severe Verified 05/25/22 22:38 anxiety, wheezing, dizziness prednisone AdvReac Severe Hallucinati Verified 05/25/22 22:38 ons diphenhydramine HCl * AdvReac Unknown Unknown Verified 05/25/22 22:38 [From Benadryl] pentosan polysulfate sodium AdvReac Unknown Verified 05/25/22 22:38 [From Elmiron] ondansetron odt Allergy Anaphylaxis Uncoded 05/25/22 22:38 tape Allergy Hives Uncoded 05/25/22 22:38 - Social History Does the pt smoke?: No Smoking Status: Never smoker Does the pt drink ETOH?: No Does the pt have substance abuse?: No - Immunizations Immunizations are current?: Yes - POLST Patient has POLST: No PD ED PE NORMAL - General General: Alert and oriented X 3, No acute distress, Well developed/nourished - HEENT HEENT: Atraumatic, PERRL, EOMI, Moist mucous membranes, Pharynx benign - Neck Neck: Supple, no meningeal sign - Cardiac Cardiac: RRR, No murmur - Respiratory Respiratory: No respiratory distress, Clear bilaterally - Abdomen Abdomen: Soft, Non tender, Non distended - Derm Derm: Warm and dry - Extremities Extremities: No deformity - Neuro Neuro: Alert and oriented X 3, backbreaker 2-12 intact, No motor deficit, No sensory deficit, Normal speech, Other (Normal finger-nose bilaterally) Results - Vitals Vitals: Vital Signs - 24 hr 08/26/22 08/26/22 08/27/22 20:22 22:30 00:17 Temperature 37.0 C Heart Rate 100 77 74 Respiratory 18 20 16 Rate Blood Pressure 135/84 H 130/87 H 138/91 H O2 Saturation 95 99 100 Oxygen O2 Source Room air Oxygen Flow Rate 10 - Labs Labs: Laboratory Tests 08/26/22 21:27 Urine HCG, Qual NEGATIVE PD Medical Decision Making - ED course Complexity details: reviewed results, d/w patient ED course: Patient presenting for evaluation and treatment of migraine and cluster headache. She has a history of similar headaches in the past. There is no trauma and she does not take a blood thinner or have other symptoms to suggest intracranial bleed or hemorrhage. No signs of meningitis on exam. Her neuro exam is normal.Patient has had prior ED visits for similar presentations. Patient has a letter from 2019 from her neurologist office dictating a treatment plan which includes IV Dilaudid, Toradol, Ativan, Zofran, IV fluids, oxygen. Patient did receive these medications with improvement in her symptoms. She is comfortable with plan for discharge and follow-up with her neurologist as well as PCP. Departure - Departure Disposition: 01 Home, Self Care Clinical Impression: Migraine headache Condition: Stable Instructions: ED Headache Migraine Follow-Up: Nils Park MD [Physician No Access] - TY GOEL MD [Primary Care Provider] - Comments: Please continue to make sure you get plenty of rest and stay hydrated. I would recommend close follow-up with your neurologist. I would also recommend close follow-up with your primary care doctor in the next week. Your next dose of Zofran can be at 4 AM if needed. If you have any new or worsening symptoms please consider return to the emergency department. Discharge Date/Time: 08/27/22 00:17
[2022-08-27 00:19] VITALS: BP 138/91
== END 2022-08-27 00:17 | disposition home or self-care (01) ==
LOC: ED 20:12
DX: G43.909 Migraine, unspecified, not intractable, without status migrainosus (principal)
CPT/HCPCS: 36415; 81025; 96361; 96374; 96375; 96376; 99284; 99285; J1170; J2060

== ENCOUNTER 2022-10-04 17:06 | Emergency (ER) | payer MEDICAID ==
--- OUTSIDE RECORDS SUMMARY | 2022-10-04 17:24 | EXTERNAL MEDICAL SUMMARY RPT | Continuity of Care Document ---
:1985 Author Organization [facility] Address [address] [place] [address] Phone Allergies No information. Encounters No information. Functional Status No information. Immunizations No information. Medications No information. Problems No information. Procedures No information. Results/Labs test date author facility value unit interpret ation Result panel 1 (unknown) (no (unknown) (unknown) (no value) (units (unk nown) date) unknown) (unknown) (no (unknown) (unknown) 07/04/22 (units (unkno wn) date) unknown) (unknown) (no (unknown) (unknown) 14:46) (units (unkno wn) date) unknown) (unknown) (no (unknown) (unknown) 37 year old female (units (unknown) date) presents to clinic unknown) for leg numbness. (unknown) (no (unknown) (unknown) Age/Sex: 37 / F Date (uni ts (unknown) date) of Service: unknown) (unknown) (no (unknown) (unknown) Allergies (units (unkn own) date) unknown) (unknown) (no (unknown) (unknown) [place] [address] (unit s (unknown) date) unknown) (unknown) (no (unknown) (unknown) Anesthesia (units (unk nown) date) unknown) (unknown) (no (unknown) (unknown) Ankle pain (units (unk nown) date) unknown) (unknown) (no (unknown) (unknown) Anxiety (units (unkno wn) date) unknown) (unknown) (no (unknown) (unknown) Asthma (units (unkno wn) date) unknown) (unknown) (no (unknown) (unknown) Attending Dr: Lizz (units (unknown) date) Dar Parish unknown) (unknown) (no (unknown) (unknown) BLISTERS AT SITE (units (unknown) date) unknown) (unknown) (no (unknown) (unknown) Cardiac arrhythmia (units (unknown) date) unknown) (unknown) (no (unknown) (unknown) Cervical cyst (units ( unknown) date) unknown) (unknown) (no (unknown) (unknown) Chicken pox (units (un known) date) unknown) (unknown) (no (unknown) (unknown) : 1985 (units (unknown) date) Acct:[id number] unknown) (unknown) (no (unknown) (unknown) Depression (units (unk nown) date) unknown) (unknown) (no (unknown) (unknown) Dept at (units (unkno wn) date) . unknown) (unknown) (no (unknown) (unknown) Documented By: (units (unknown) date) Lizz Dodge 07/11/22 unknown) 0753 (unknown) (no (unknown) (unknown) Draft (units (unkno wn) date) unknown) (unknown) (no (unknown) (unknown) Endometriosis (units ( unknown) date) unknown) (unknown) (no (unknown) (unknown) Family History (units (unknown) date) (Updated 07/07/21 @ unknown) 21:07 by Jovita Pham) (unknown) (no (unknown) (unknown) Family Practice (units (unknown) date) Office Visit unknown) (unknown) (no (unknown) (unknown) Family/Other Mental (unit s (unknown) date) health problem unknown) (unknown) (no (unknown) (unknown) Fibromyalgia (units (u nknown) date) unknown) (unknown) (no (unknown) (unknown) [facility] (units ([facility]) date[facility] unknown) (unknown) (no (unknown) (unknown) Foot pain (units (unkn own) date) unknown) (unknown) (no (unknown) (unknown) Fractures (units (unkn own) date) unknown) (unknown) (no (unknown) (unknown) GI bleeding (units (un known) date) unknown) (unknown) (no (unknown) (unknown) Gastric ulcer (units ( unknown) date) unknown) (unknown) (no (unknown) (unknown) Grandfather (uni ts (unknown) date) Stroke unknown) (unknown) (no (unknown) (unknown) Grandmother Breast (units (unknown) date) cancer unknown) (unknown) (no (unknown) (unknown) Grandmother (uni ts (unknown) date) Stroke unknown) (unknown) (no (unknown) (unknown) Headache (units (unkno wn) date) unknown) (unknown) (no (unknown) (unknown) Health Management (units (unknown) date) reviewed with unknown) patient: Yes (unknown) (no (unknown) (unknown) Health Management (units (unknown) date) unknown) (unknown) (no (unknown) (unknown) Hearing loss (units (u nknown) date) unknown) (unknown) (no (unknown) (unknown) Hemorrhoid (units (unk nown) date) unknown) (unknown) (no (unknown) (unknown) History of (units (unk nown) date) appendectomy unknown) (unknown) (no (unknown) (unknown) History of bladder (units (unknown) date) surgery unknown) (unknown) (no (unknown) (unknown) History of (units (unk nown) date) endometrial ablation unknown) (unknown) (no (unknown) (unknown) History of (units (unk nown) date) tonsillectomy unknown) (unknown) (no (unknown) (unknown) History of umbilical (uni ts (unknown) date) hernia repair unknown) (unknown) (no (unknown) (unknown) Intake Note: (units (u nknown) date) unknown) (unknown) (no (unknown) (unknown) Intake performed by: (uni ts (unknown) date) Samanta Lopez unknown) (unknown) (no (unknown) (unknown) Intake (units (unkno wn) date) unknown) (unknown) (no (unknown) (unknown) Intake- Clincial (units (unknown) date) Staff unknown) (unknown) (no (unknown) (unknown) Interstitial (units (u nknown) date) cystitis unknown) (unknown) (no (unknown) (unknown) Kidney stones (units ( unknown) date) unknown) (unknown) (no (unknown) (unknown) Loc: [facility] (units (unkno wn) date) unknown) (unknown) (no (unknown) (unknown) [id number] (units (unk nown) date) unknown) (unknown) (no (unknown) (unknown) Medical History (units (unknown) date) (Updated 07/07/21 @ unknown) 21:03 by Jovita Pham) (unknown) (no (unknown) (unknown) Mental health (units ( unknown) date) problem unknown) (unknown) (no (unknown) (unknown) Migraines (units (unkn own) date) unknown) (unknown) (no (unknown) (unknown) Mother (units (unknown) date) Cancer unknown) (unknown) (no (unknown) (unknown) Ovarian cyst (units (u nknown) date) unknown) (unknown) (no (unknown) (unknown) PFSH (units (unkno wn) date) unknown) (unknown) (no (unknown) (unknown) PLASTIC MEDICAL TAPE (uni ts (unknown) date) Allergy (Mild, unknown) Uncoded 11/28/17 12:24) (unknown) (no (unknown) (unknown) PTSD (post-traumatic (uni ts (unknown) date) stress disorder) unknown) (unknown) (no (unknown) (unknown) Painful menstrual (units (unknown) date) periods unknown) (unknown) (no (unknown) (unknown) Patient: (units (unkno wn) date) Owen Arreola W unknown) MR#: (unknown) (no (unknown) (unknown) Reason For Visit (units (unknown) date) unknown) (unknown) (no (unknown) (unknown) Ruptured tympanic (units (unknown) date) membrane unknown) (unknown) (no (unknown) (unknown) Shoulder pain (units ( unknown) date) () unknown) (unknown) (no (unknown) (unknown) Signed By: (units (unk nown) date) unknown) (unknown) (no (unknown) (unknown) Smoking Status: (units (unknown) date) Former smoker unknown) (unknown) (no (unknown) (unknown) Stroke (units (unkno wn) date) unknown) (unknown) (no (unknown) (unknown) Surgical History (units (unknown) date) (Updated 07/07/21 @ unknown) 21:03 by Jovita Pham) (unknown) (no (unknown) (unknown) TIA (transient (units (unknown) date) ischemic attack) unknown) (unknown) (no (unknown) (unknown) This note may have (units (unknown) date) been all or partially unknown) generated using voice recognition (unknown) (no (unknown) (unknown) Tinnitus (units (unkno wn) date) unknown) (unknown) (no (unknown) (unknown) Tobacco + Substance (unit s (unknown) date) Use unknown) (unknown) (no (unknown) (unknown) Tobacco Status (units (unknown) date) unknown) (unknown) (no (unknown) (unknown) Vertigo (units (unkno wn) date) unknown) (unknown) (no (unknown) (unknown) Visit Reasons: hip (units (unknown) date) leg numbness unknown) (unknown) (no (unknown) (unknown) acetaminophen (units ( unknown) date) [ACETAMINOPHEN] unknown) Allergy (Unknown, Verified 05/26/21 14:46) (unknown) (no (unknown) (unknown) adhesive [ADHESIVE] (unit s (unknown) date) Allergy (Unknown, unknown) Verified 05/26/21 14:46) (unknown) (no (unknown) (unknown) amitriptyline (units ( unknown) date) [AMITRIPTYLINE] unknown) Allergy (Unknown, Verified 05/26/21 14:46) (unknown) (no (unknown) (unknown) aspirin [ASPIRIN] (units (unknown) date) Allergy (Unknown, unknown) Verified 05/26/21 14:46) (unknown) (no (unknown) (unknown) benzocaine (units (unk nown) date) [BENZOCAINE] Allergy unknown) (Unknown, Verified 05/26/21 14:46) (unknown) (no (unknown) (unknown) butamben [From (units (unknown) date) CETACAINE] Allergy unknown) (Unknown, Verified 05/26/21 14:46) (unknown) (no (unknown) (unknown) dexamethasone (units ( unknown) date) [DEXAMETHASONE] unknown) Allergy (Unknown, Verified 05/26/21 14:46) (unknown) (no (unknown) (unknown) dicloxacillin (units ( unknown) date) [DICLOXACILLIN] unknown) Allergy (Unknown, Verified 05/26/21 14:46) (unknown) (no (unknown) (unknown) dihydroergocristine (unit s (unknown) date) [DIHYDROERGOCRISTINE] unknown) Allergy (Unknown, Verified 05/26/21 (unknown) (no (unknown) (unknown) dihydroergotamine (units (unknown) date) [DIHYDROERGOTAMINE] unknown) Allergy (Unknown, Verified 05/26/2146) (unknown) (no (unknown) (unknown) diphenhydramine (units (unknown) date) [DIPHENHYDRAMINE] unknown) Allergy (Unknown, Verified 05/26/2146) (unknown) (no (unknown) (unknown) frovatriptan (units (u nknown) date) [FROVATRIPTAN] unknown) Allergy (Unknown, Verified 05/26/2146) (unknown) (no (unknown) (unknown) have occurred. If (units (unknown) date) there are any unknown) questions, please contact the Medical Records (unknown) (no (unknown) (unknown) hydroxyzine (units (un known) date) [HYDROXYZINE] Allergy unknown) (Unknown, Verified 05/26/2146) (unknown) (no (unknown) (unknown) ibuprofen (units (unkn own) date) [IBUPROFEN] Allergy unknown) (Unknown, Verified 05/26/2146) (unknown) (no (unknown) (unknown) latex [LATEX] (units ( unknown) date) Allergy (Unknown, unknown) Verified 05/26/21) (unknown) (no (unknown) (unknown) may occur. (units (unk nown) date) Occasional wrong-word unknown) or 'sound-alike' substitutions may have (unknown) (no (unknown) (unknown) metoclopramide (units (unknown) date) [METOCLOPRAMIDE] unknown) Allergy (Unknown, Verified 05/26/2146) (unknown) (no (unknown) (unknown) nortriptyline (units ( unknown) date) [NORTRIPTYLINE] unknown) Allergy (Unknown, Verified 05/26/2146) (unknown) (no (unknown) (unknown) occurred due to the (unit s (unknown) date) inherent limitations unknown) of voice recognition software. Please (unknown) (no (unknown) (unknown) prasterone (DHEA) (units (unknown) date) [PRASTERONE (DHEA)] unknown) Allergy (Unknown, Verified 05/26/21) (unknown) (no (unknown) (unknown) prednisone (units (unk nown) date) [PREDNISONE] Allergy unknown) (Unknown, Verified 05/26/21) (unknown) (no (unknown) (unknown) prochlorperazine (units (unknown) date) [From COMPAZINE] unknown) Allergy (Unknown, Verified 05/26/21) (unknown) (no (unknown) (unknown) promethazine [From (units (unknown) date) PHENERGAN] Allergy unknown) (Unknown, Verified 05/26/21) (unknown) (no (unknown) (unknown) read the note (units ( unknown) date) carefully and unknown) recognize, using context, where these substitutions (unknown) (no (unknown) (unknown) rizatriptan (units (un known) date) [RIZATRIPTAN] Allergy unknown) (Unknown, Verified 05/26/21) (unknown) (no (unknown) (unknown) software. Although (units (unknown) date) every effort is made unknown) to edit content, pattern assembler errors (unknown) (no (unknown) (unknown) sumatriptan (units (un known) date) [SUMATRIPTAN] Allergy unknown) (Unknown, Verified 05/26/21) (unknown) (no (unknown) (unknown) tetracaine (units (unk nown) date) [TETRACAINE] Allergy unknown) (Unknown, Verified 05/26/21) (unknown) (no (unknown) (unknown) topiramate [From (units (unknown) date) TOPAMAX] Allergy unknown) (Unknown, Verified 05/26/21) (unknown) (no (unknown) (unknown) valproic acid (units ( unknown) date) [VALPROIC ACID] unknown) Allergy (Unknown, Verified 05/26/21) (unknown) (no (unknown) (unknown) vancomycin (units (unk nown) date) [VANCOMYCIN] Allergy unknown) (Unknown, Verified 05/26/21) (unknown) (no (unknown) (unknown) verapamil (units (unkn own) date) [VERAPAMIL] Allergy unknown) (Unknown, Verified 10/07/21 14:46) Result panel 2 (unknown) (no (unknown) (unknown) (no value) (units (unk nown) date) unknown) (unknown) (no (unknown) (unknown) 07/04/22 (units (unkno wn) date) unknown) (unknown) (no (unknown) (unknown) 07/24/22 0910 (units ( unknown) date) unknown) (unknown) (no (unknown) (unknown) 14:46) (units (unkno wn) date) unknown) (unknown) (no (unknown) (unknown) 37 year old female (units (unknown) date) presents to clinic unknown) for leg numbness. (unknown) (no (unknown) (unknown) Age/Sex: 37 / F Date (uni ts (unknown) date) of Service: unknown) (unknown) (no (unknown) (unknown) Allergies (units (unkn own) date) unknown) (unknown) (no (unknown) (unknown) [place] [address] (unit s (unknown) date) unknown) (unknown) (no (unknown) (unknown) Anesthesia (units (unk nown) date) unknown) (unknown) (no (unknown) (unknown) Ankle pain (units (unk nown) date) unknown) (unknown) (no (unknown) (unknown) Anxiety (units (unkno wn) date) unknown) (unknown) (no (unknown) (unknown) Asthma (units (unkno wn) date) unknown) (unknown) (no (unknown) (unknown) Attending Dr: Lizz (units (unknown) date) Dar Reyes.OAkua unknown) (unknown) (no (unknown) (unknown) BLISTERS AT SITE (units (unknown) date) unknown) (unknown) (no (unknown) (unknown) Cardiac arrhythmia (units (unknown) date) unknown) (unknown) (no (unknown) (unknown) Cervical cyst (units ( unknown) date) unknown) (unknown) (no (unknown) (unknown) Chicken pox (units (un known) date) unknown) (unknown) (no (unknown) (unknown) : 1985 (units (unknown) date) Acct:[id number] unknown) (unknown) (no (unknown) (unknown) Depression (units (unk nown) date) unknown) (unknown) (no (unknown) (unknown) Dept at (units (unkno wn) date) . unknown) (unknown) (no (unknown) (unknown) Documented By: (units (unknown) date) Dar Lizz 07/11/22 unknown) 0753 (unknown) (no (unknown) (unknown) Endometriosis (units ( unknown) date) unknown) (unknown) (no (unknown) (unknown) Family History (units (unknown) date) (Updated 07/07/21 @ unknown) 21:07 by Jovita Pham) (unknown) (no (unknown) (unknown) Family Practice (units (unknown) date) Office Visit unknown) (unknown) (no (unknown) (unknown) Family/Other Mental (unit s (unknown) date) health problem unknown) (unknown) (no (unknown) (unknown) Fibromyalgia (units (u nknown) date) unknown) (unknown) (no (unknown) (unknown) [facility] ([facility] date[facility] unknown) (unknown) (no (unknown) (unknown) Foot pain (units (unkn own) date) unknown) (unknown) (no (unknown) (unknown) Fractures (units (unkn own) date) unknown) (unknown) (no (unknown) (unknown) GI bleeding (units (un known) date) unknown) (unknown) (no (unknown) (unknown) Gastric ulcer (units ( unknown) date) unknown) (unknown) (no (unknown) (unknown) Grandfather (uni ts (unknown) date) Stroke unknown) (unknown) (no (unknown) (unknown) Grandmother Breast (units (unknown) date) cancer unknown) (unknown) (no (unknown) (unknown) Grandmother (uni ts (unknown) date) Stroke unknown) (unknown) (no (unknown) (unknown) Headache (units (unkno wn) date) unknown) (unknown) (no (unknown) (unknown) Health Management (units (unknown) date) reviewed with unknown) patient: Yes (unknown) (no (unknown) (unknown) Health Management (units (unknown) date) unknown) (unknown) (no (unknown) (unknown) Hearing loss (units (u nknown) date) unknown) (unknown) (no (unknown) (unknown) Hemorrhoid (units (unk nown) date) unknown) (unknown) (no (unknown) (unknown) History of (units (unk nown) date) appendectomy unknown) (unknown) (no (unknown) (unknown) History of bladder (units (unknown) date) surgery unknown) (unknown) (no (unknown) (unknown) History of (units (unk nown) date) endometrial ablation unknown) (unknown) (no (unknown) (unknown) History of (units (unk nown) date) tonsillectomy unknown) (unknown) (no (unknown) (unknown) History of umbilical (uni ts (unknown) date) hernia repair unknown) (unknown) (no (unknown) (unknown) Intake Note: (units (u nknown) date) unknown) (unknown) (no (unknown) (unknown) Intake performed by: (uni ts (unknown) date) Samanta Lopez unknown) (unknown) (no (unknown) (unknown) Intake (units (unkno wn) date) unknown) (unknown) (no (unknown) (unknown) Intake- Clincial (units (unknown) date) Staff unknown) (unknown) (no (unknown) (unknown) Interstitial (units (u nknown) date) cystitis unknown) (unknown) (no (unknown) (unknown) Kidney stones (units ( unknown) date) unknown) (unknown) (no (unknown) (unknown) Loc: [facility] (units (unkno wn) date) unknown) (unknown) (no (unknown) (unknown) [id number] (units (unk nown) date) unknown) (unknown) (no (unknown) (unknown) Medical History (units (unknown) date) (Updated 07/07/21 @ unknown) 21:03 by Jovita Pham) (unknown) (no (unknown) (unknown) Mental health (units ( unknown) date) problem unknown) (unknown) (no (unknown) (unknown) Migraines (units (unkn own) date) unknown) (unknown) (no (unknown) (unknown) Mother (units (unknown) date) Cancer unknown) (unknown) (no (unknown) (unknown) Ovarian cyst (units (u nknown) date) unknown) (unknown) (no (unknown) (unknown) PFSH (units (unkno wn) date) unknown) (unknown) (no (unknown) (unknown) PLASTIC MEDICAL TAPE (uni ts (unknown) date) Allergy (Mild, unknown) Uncoded 11/28/17 12:24) (unknown) (no (unknown) (unknown) PTSD (post-traumatic (uni ts (unknown) date) stress disorder) unknown) (unknown) (no (unknown) (unknown) Painful menstrual (units (unknown) date) periods unknown) (unknown) (no (unknown) (unknown) Patient: (units (unkno wn) date) Owen Arreola W unknown) MR#: (unknown) (no (unknown) (unknown) Reason For Visit (units (unknown) date) unknown) (unknown) (no (unknown) (unknown) Ruptured tympanic (units (unknown) date) membrane unknown) (unknown) (no (unknown) (unknown) Shoulder pain (units ( unknown) date) () unknown) (unknown) (no (unknown) (unknown) Signed By: (units (unk nown) date) <Electronically unknown) signed by Lizz Dodge> (unknown) (no (unknown) (unknown) Signed (units (unkno wn) date) unknown) (unknown) (no (unknown) (unknown) Smoking Status: (units (unknown) date) Former smoker unknown) (unknown) (no (unknown) (unknown) Stroke (units (unkno wn) date) unknown) (unknown) (no (unknown) (unknown) Surgical History (units (unknown) date) (Updated 07/07/21 @ unknown) 21:03 by Jovita Pham) (unknown) (no (unknown) (unknown) TIA (transient (units (unknown) date) ischemic attack) unknown) (unknown) (no (unknown) (unknown) This note may have (units (unknown) date) been all or partially unknown) generated using voice recognition (unknown) (no (unknown) (unknown) Tinnitus (units (unkno wn) date) unknown) (unknown) (no (unknown) (unknown) Tobacco + Substance (unit s (unknown) date) Use unknown) (unknown) (no (unknown) (unknown) Tobacco Status (units (unknown) date) unknown) (unknown) (no (unknown) (unknown) Vertigo (units (unkno wn) date) unknown) (unknown) (no (unknown) (unknown) Visit Reasons: hip (units (unknown) date) leg numbness unknown) (unknown) (no (unknown) (unknown) acetaminophen (units ( unknown) date) [ACETAMINOPHEN] unknown) Allergy (Unknown, Verified 05/26/21 14:46) (unknown) (no (unknown) (unknown) adhesive [ADHESIVE] (unit s (unknown) date) Allergy (Unknown, unknown) Verified 05/26/21 14:46) (unknown) (no (unknown) (unknown) amitriptyline (units ( unknown) date) [AMITRIPTYLINE] unknown) Allergy (Unknown, Verified 05/26/21 14:46) (unknown) (no (unknown) (unknown) aspirin [ASPIRIN] (units (unknown) date) Allergy (Unknown, unknown) Verified 05/26/21 14:46) (unknown) (no (unknown) (unknown) benzocaine (units (unk nown) date) [BENZOCAINE] Allergy unknown) (Unknown, Verified 05/26/21 14:46) (unknown) (no (unknown) (unknown) butamben [From (units (unknown) date) CETACAINE] Allergy unknown) (Unknown, Verified 05/26/21 14:46) (unknown) (no (unknown) (unknown) dexamethasone (units ( unknown) date) [DEXAMETHASONE] unknown) Allergy (Unknown, Verified 05/26/21 14:46) (unknown) (no (unknown) (unknown) dicloxacillin (units ( unknown) date) [DICLOXACILLIN] unknown) Allergy (Unknown, Verified 05/26/21 14:46) (unknown) (no (unknown) (unknown) dihydroergocristine (unit s (unknown) date) [DIHYDROERGOCRISTINE] unknown) Allergy (Unknown, Verified 05/26/21 (unknown) (no (unknown) (unknown) dihydroergotamine (units (unknown) date) [DIHYDROERGOTAMINE] unknown) Allergy (Unknown, Verified 05/26/21 14:46) (unknown) (no (unknown) (unknown) diphenhydramine (units (unknown) date) [DIPHENHYDRAMINE] unknown) Allergy (Unknown, Verified 10/07/21 14:46) (unknown) (no (unknown) (unknown) frovatriptan (units (u nknown) date) [FROVATRIPTAN] unknown) Allergy (Unknown, Verified 05/26/21) (unknown) (no (unknown) (unknown) have occurred. If (units (unknown) date) there are any unknown) questions, please contact the Medical Records (unknown) (no (unknown) (unknown) hydroxyzine (units (un known) date) [HYDROXYZINE] Allergy unknown) (Unknown, Verified 05/26/21) (unknown) (no (unknown) (unknown) ibuprofen (units (unkn own) date) [IBUPROFEN] Allergy unknown) (Unknown, Verified 05/26/21) (unknown) (no (unknown) (unknown) latex [LATEX] (units ( unknown) date) Allergy (Unknown, unknown) Verified 05/26/21) (unknown) (no (unknown) (unknown) may occur. (units (unk nown) date) Occasional wrong-word unknown) or 'sound-alike' substitutions may have (unknown) (no (unknown) (unknown) metoclopramide (units (unknown) date) [METOCLOPRAMIDE] unknown) Allergy (Unknown, Verified 05/26/21) (unknown) (no (unknown) (unknown) nortriptyline (units ( unknown) date) [NORTRIPTYLINE] unknown) Allergy (Unknown, Verified 05/26/21) (unknown) (no (unknown) (unknown) occurred due to the (unit s (unknown) date) inherent limitations unknown) of voice recognition software. Please (unknown) (no (unknown) (unknown) prasterone (DHEA) (units (unknown) date) [PRASTERONE (DHEA)] unknown) Allergy (Unknown, Verified 05/26/21) (unknown) (no (unknown) (unknown) prednisone (units (unk nown) date) [PREDNISONE] Allergy unknown) (Unknown, Verified 05/26/21) (unknown) (no (unknown) (unknown) prochlorperazine (units (unknown) date) [From COMPAZINE] unknown) Allergy (Unknown, Verified 10/07/21 14:46) (unknown) (no (unknown) (unknown) promethazine [From (units (unknown) date) PHENERGAN] Allergy unknown) (Unknown, Verified 05/26/21) (unknown) (no (unknown) (unknown) read the note (units ( unknown) date) carefully and unknown) recognize, using context, where these substitutions (unknown) (no (unknown) (unknown) rizatriptan (units (un known) date) [RIZATRIPTAN] Allergy unknown) (Unknown, Verified 05/26/2146) (unknown) (no (unknown) (unknown) software. Although (units (unknown) date) every effort is made unknown) to edit content, pattern assembler errors (unknown) (no (unknown) (unknown) sumatriptan (units (un known) date) [SUMATRIPTAN] Allergy unknown) (Unknown, Verified 05/26/21:46) (unknown) (no (unknown) (unknown) tetracaine (units (unk nown) date) [TETRACAINE] Allergy unknown) (Unknown, Verified 05/26/21:46) (unknown) (no (unknown) (unknown) topiramate [From (units (unknown) date) TOPAMAX] Allergy unknown) (Unknown, Verified 05/26/21:46) (unknown) (no (unknown) (unknown) valproic acid (units ( unknown) date) [VALPROIC ACID] unknown) Allergy (Unknown, Verified 05/26/21:46) (unknown) (no (unknown) (unknown) vancomycin (units (unk nown) date) [VANCOMYCIN] Allergy unknown) (Unknown, Verified 05/26/21:46) (unknown) (no (unknown) (unknown) verapamil (units (unkn own) date) [VERAPAMIL] Allergy unknown) (Unknown, Verified 05/26/21:46) Social History No information. Vital Signs No information.
[2022-10-04] MEDS ORDERED: SODIUM CHLORIDE 0.9% 1,000 ML IV STA (17:42)
[2022-10-04] MEDS ORDERED: HYDROmorphone 1 MG/ML CARPUJECT IVP STA (17:42)
[2022-10-04] MEDS ORDERED: KETOROLAC 30 MG/ML VIAL IVP STA (17:42)
[2022-10-04] MEDS ORDERED: ONDANSETRON 4 MG/2 ML VIAL IVP STA (17:43)
[2022-10-04] MEDS ORDERED: LORazepam 2 MG/ML VIAL IVP STA (17:43)
--- NOTE | 2022-10-04 17:46 | ED Physician Documentation ---
History of Present Illness - Stated complaint Stated Complaint: HEAD PAIN, COVID COMPLICATIONS - Chief complaint Chief Complaint: Neuro - History obtained from History obtained from: Patient - Additonal information Additional information: The patient comes to the emergency department chief complaint of migraine and hemoptysis after being sick with COVID for the last couple of weeks. She has a history of migraines and sees neurologist Dr. Park in [place] for this. She states it feels like her usual migraines, but the ongoing coughing and being unable to sleep because made this worse. The patient is not running fevers at this time. She has been nauseated intermittently. She has had some body aches on and off, and feels that overall, her COVID symptoms are gradually improving except for the cough. She states she has noticed a mild amount of bloody residue/granules in her sputum when she coughs and she has a pain at the base of her neck. She also has had some bruises on her hands. She states she had a telehealth visit with her primary doctor who told her all of her symptoms were due to COVID and would ultimately pass. He did recommend getting an x-ray for her mild hemoptysis and she tried to go to urgent care but was told they did not have an x-ray tech and so she was sent here instead. She denies any lightheadedness. She states she has a history of respiratory failure and intubation previously though the etiology of this is not clear. No other complaints at this time. PD PAST MEDICAL HISTORY - Past Medical History Cardiovascular: None Respiratory: None Neuro: TIA, Headaches, Migraines Endocrine/Autoimmune: None GI: None HAND SEWER SHOES: Endometriosis : None HEENT: None Psych: Depression, Anxiety, ADD/ADHD, Post traumatic stress disorder Musculoskeletal: Osteoarthritis, Fibromyalgia Derm: None - Past Surgical History Past Surgical History: Yes General: Appendectomy /HAND SEWER SHOES: Endometrial ablation, Other HEENT: Tonsil/Adenoidectomy - Present Medications Home Medications: Ambulatory Orders Medication Instructions Recorded Confirmed Cholecalciferol [Vitamin D3] 5,000 unit PO DAILY 02/09/16 01/09/22 Pregabalin [Lyrica] 100 mg PO TID 02/09/16 01/09/22 Temazepam [Restoril] 1 tab PO DAILY 07/31/16 01/09/22 Magnesium 250 mg PO DAILY 06/21/17 01/09/22 EPINEPHrine [Epipen 2-Olayinka] 0.3 mg IJ ONCE PRN #1 auto.injct 08/14/17 01/09/22 Dextroamphetamine/Amphetamine 20 mg PO BID 12/08/21 01/09/22 [Adderall 10 mg Tablet] Melatonin 1 mg PO HS PRN 12/08/21 01/09/22 [place]-3/Dha/Epa/Fish Oil [Fish Oil 1 tab PO DAILY 12/08/21 01/09/22 1,000 mg Softgel] Zinc Citrate [Zinc] 1 tab PO DAILY 12/08/21 01/09/22 ondansetron HCL [Ondansetron HCl] 8 mg SL Q6HR PRN 12/08/21 01/09/22 oxyCODONE [Roxicodone] 10 mg PO Q4HR PRN 12/08/21 01/09/22 EPINEPHrine [Epinephrine] 0.3 mg IJ ONCE PRN #2 dis.syr 01/09/22 clonazePAM [Clonazepam] 1 mg PO BID PRN 01/09/22 01/09/22 Codeine Phosphate/Guaifenesin 10 ml PO Q6HR PRN #120 ml 10/04/22 [Codeine-Guaifen 10-100 mg/5 ml] - Allergies Allergies/Adverse Reactions: Allergies Allergy/AdvReac Type Severity Reaction Status Date / Time sumatriptan succinate * Allergy Severe anaphylaxis Verified 10/04/22 17:15 [From Imitrex] vancomycin Allergy Severe nicolette Verified 10/04/22 17:15 syndrome doxycycline Allergy Unknown Unknown Verified 10/04/22 17:15 divalproex sodium Allergy Anaphylaxis Verified 10/04/22 17:15 [From Depakote] nortriptyline Allergy Anaphylaxis Verified 10/04/22 17:15 prochlorperazine Allergy Anaphylaxis Verified 10/04/22 17:15 [From Compazine] promethazine Allergy Anaphylaxis Verified 10/04/22 17:15 Antihistamines - Alkylamine AdvReac Severe severe Verified 10/04/22 17:15 anxiety, wheezing, dizziness prednisone AdvReac Severe Hallucinati Verified 10/04/22 17:15 ons diphenhydramine HCl * AdvReac Unknown Unknown Verified 10/04/22 17:15 [From Benadryl] pentosan polysulfate sodium AdvReac Unknown Verified 10/04/22 17:15 [From Elmaron] ondansetron odt Allergy Anaphylaxis Uncoded 05/25/22 22:38 tape Allergy Hives Uncoded 05/25/22 22:38 - Social History Does the pt smoke?: No Smoking Status: Never smoker Does the pt drink ETOH?: No Does the pt have substance abuse?: No - Immunizations Immunizations are current?: Yes - POLST Patient has POLST: No PD ED PE NORMAL - Vitals Vital signs reviewed: Yes - General General: Alert and oriented X 3, No acute distress, Well developed/nourished, Other (Patient is sitting up in a darkened room, wearing sunglasses, but spe aking animatedly in a loud voice.) - HEENT HEENT: Atraumatic, PERRL, EOMI, Ears normal, Moist mucous membranes, Pharynx benign (No bloody residue.) - Neck Neck: Supple, no meningeal sign, No adenopathy - Cardiac Cardiac: RRR, No murmur, Strong equal pulses - Respiratory Respiratory: No respiratory distress, Clear bilaterally - Abdomen Abdomen: Soft, Non tender, Non distended - Derm Derm: Normal color, Warm and dry, No rash, Other (Contusion right palm, small. No petechiae.) - Extremities Extremities: No deformity, No edema - Neuro Neuro: Alert and oriented X 3 - Psych Psych: Normal mood, Normal affect Results - Vitals Vitals: Oxygen O2 Source Room air - Labs Labs: Laboratory Tests 10/04/22 10/04/22 17:56 17:56 WBC 7.0 RBC 4.74 Hgb 13.4 Hct 41.7 MCV 88.0 MCH 28.3 MCHC 32.1 RDW 11.9 L Plt Count 248 MPV 11.5 H Neut # (Auto) 3.5 Lymph # (Auto) 2.9 [place] # (Auto) 0.5 Eos # (Auto) 0.1 Baso # (Auto) 0.0 Absolute Nucleated RBC 0.00 Nucleated RBC % 0.0 PT 11.9 INR 1.1 PD Medical Decision Making - ED course Complexity details: reviewed results, re-evaluated patient, considered differential, d/w patient ED course: The patient was treated symptomatically according to a letter that she brought with her from her neurologist, requesting an IV fluid bolus, oxygen, Zofran, Ativan, Toradol, and Dilaudid. Chest x-ray was obtained, and unremarkable. Patient was feeling better after the regimen requested by her Neurologist. She did request something different for her cough and so I have sent in a prescription for cough medicine for her. We have discussed the need for follow- up and the usual indications for return. Departure - Departure Disposition: 01 Home, Self Care Clinical Impression: COVID Migraine Qualifiers: Migraine type: unspecified Status migrainosus presence: without status migrainosus Intractability: not intractable Qualified Code(s): G43.909 - Migraine, unspecified, not intractable, without status migrainosus Condition: Stable Instructions: ED Headache Migraine, ED Viral Syndrome Prescriptions: Codeine Phosphate/Guaifenesin [Codeine-Guaifen 10-100 mg/5 ml] 10 ml PO Q6HR PRN #120 ml PRN Reason: Cough Comments: You have been treated for your migraine in the emergency department with a regimen that your neurologist as laid out. A prescription for a cough medicine that contains codeine and guaifenesin, and on antihistamine cough suppressant, has been electronically transmitted to the [facility] pharmacy in [place] at your request. You may pick this up in the morning. Please follow-up with your primary care physician and your neurologist for further concerns. You may continue the Tessalon Perlgucci if needed/desired. Discharge Date/Time: 10/04/22 19:58
[2022-10-04 18:02] LABS: BASOPHILS % (AUTO) 0.3 %; EOSINOPHILS # (AUTO) 0.1 10^3/uL (0.0-0.7); EOSINOPHILS % (AUTO) 1.4 %; HCT - HEMATOCRIT 41.7 % (37.0-47.0); HGB - HEMOGLOBIN 13.4 g/dL (12.0-16.0); LYMPHOCYTES # (AUTO) 2.9 10^3/uL (1.5-3.5); LYMPHOCYTES % (AUTO) 40.9 %; MEAN CORPUSCULAR HEMOGLOBIN 28.3 pg (27.0-31.0); MEAN CORPUSCULAR HGB CONC 32.1 g/dL (32.0-36.0); MEAN PLATELET VOLUME 11.5 fL (7.9-10.8); MONOCYTES # (AUTO) 0.5 10^3/uL (0.0-1.0); MONOCYTES % (AUTO) 6.7 %; NEUTROPHILS # (AUTO) 3.5 10^3/uL (1.5-6.6); NEUTROPHILS % (AUTO) 50.4 %; PLT - PLATELET COUNT 248 10^3/uL (130-450); RED BLOOD COUNT 4.74 10^6/uL (4.20-5.40); RED CELL DISTRIBUTION WIDTH 11.9 % (12.0-15.0)
[2022-10-04 18:10] LABS: INR 1.1 (0.8-1.2); PT - PROTHROMBIN TIME 11.9 secs (9.9-12.6)
--- NOTE | 2022-10-04 18:33 | XRAY Report ---
PROCEDURE: Chest 1 View X-Ray INDICATIONS: hemoptysis TECHNIQUE: One view of the chest was acquired. COMPARISON: 04/09/2019 FINDINGS: The inferior costophrenic angles are clipped on this study. Surgical changes and devices: None. Lungs and pleura: No pleural effusions or pneumothorax. Lungs are clear. Mediastinum: Mediastinal contours appear normal. Heart size is normal. Bones and chest wall: No suspicious bony lesions. Overlying soft tissues appear unremarkable. IMPRESSION: Limited portable chest examination, without an acute abnormality identified. For this patient's presenting history of hemoptysis, please consider dedicated follow-up chest CT wit h contrast for further evaluation. Reviewed by: Rian Ross MD on 10/04/2022 5:32 PM [facility] Approved by: Rian Ross MD on 10/04/2022 5:32 PM [facility] Station ID: [id number]
[2022-10-04 19:51] VITALS: BP 121/94
== END 2022-10-04 19:58 | disposition home or self-care (01) ==
LOC: ED 17:06
DX: G43.909 Migraine, unspecified, not intractable, without status migrainosus (principal); U07.1 COVID-19
CPT/HCPCS: 36415; 71045; 85025; 85610; 96361; 96374; 96375; 99284; 99285; J1170; J2060

== ENCOUNTER 2022-10-15 22:21 | Emergency (ER) | payer MEDICAID ==
--- OUTSIDE RECORDS SUMMARY | 2022-10-15 22:51 | EXTERNAL MEDICAL SUMMARY RPT | Continuity of Care Document ---
:1985 Author Organization [facility] Address [address] [place] [address] Phone Care Team Providers Name Role Phone Laurent Lucas Unavailable Unavailable Allergies and Intolerances date description facility type (no date) [facility] (unknown) Encounters No information. Functional Status No information. Immunizations No information. Medications date description facility 2022-10-10 00:00 Benzonatate [facility] 2022-10-10 00:00 Albuterol Sulfate [facility] 2022-10-10 00:00 Codeine-Guaifenesin [facility] Problems date description facility 2022-10-12 08:18 Hemoptysis [facility] Procedures No information. Results/Labs test date author [...] own) date) unknown) (unknown) (no (unknown) (unknown) [place] [address] (unit s (unknown) date) unknown) (unknown) (no [...] (unknown) (unknown) : 1985 (units (unknown) date) Acct:[id number] unknown) (unknown) (no (unknown) (unknown) Depression (units [...] wn) date) unknown) (unknown) (no (unknown) (unknown) [id number] (units (unk nown) date) unknown) (unknown) (no [...] (unknown) (unknown) Patient: (units (unkno wn) date) MaxwellBibi W unknown) MR#: (unknown) (no (unknown) (unknown) [...] date) [DIHYDROERGOTAMINE] unknown) Allergy (Unknown, Verified 05/26/21 14) (unknown) (no (unknown) (unknown) diphenhydramine (units (unknown) date) [DIPHENHYDRAMINE] unknown) Allergy (Unknown, Verified 05/26/21 14:46) (unknown) (no (unknown) (unknown) frovatriptan (units (u nknown) date) [FROVATRIPTAN] unknown) Allergy (Unknown, Verified 05/26/21 14:46) (unknown) (no (unknown) (unknown) have occurred. If (units (unknown) date) there are any unknown) questions, please contact the Medical Records (unknown) (no (unknown) (unknown) hydroxyzine (units (un known) date) [HYDROXYZINE] Allergy unknown) (Unknown, Verified 05/26/21 14:46) (unknown) (no (unknown) (unknown) ibuprofen (units (unkn own) date) [IBUPROFEN] Allergy unknown) (Unknown, Verified 05/26/21:46) (unknown) (no (unknown) (unknown) latex [LATEX] (units ( unknown) date) Allergy (Unknown, unknown) Verified 05/26/2146) (unknown) (no (unknown) (unknown) may occur. (units (unk nown) date) Occasional wrong-word unknown) or 'sound-alike' substitutions may have (unknown) (no (unknown) (unknown) metoclopramide (units (unknown) date) [METOCLOPRAMIDE] unknown) Allergy (Unknown, Verified 05/26/21:) (unknown) (no (unknown) (unknown) nortriptyline (units ( unknown) date) [NORTRIPTYLINE] unknown) Allergy (Unknown, Verified 05/26/21) (unknown) (no (unknown) (unknown) occurred due to the (unit s (unknown) date) inherent limitations unknown) of voice recognition software. Please (unknown) (no (unknown) (unknown) prasterone (DHEA) (units (unknown) date) [PRASTERONE (DHEA)] unknown) Allergy (Unknown, Verified 05/26/21:46) (unknown) (no (unknown) (unknown) prednisone (units (unk nown) date) [PREDNISONE] Allergy unknown) (Unknown, Verified 05/26/21) (unknown) (no (unknown) (unknown) prochlorperazine (units (unknown) date) [From COMPAZINE] unknown) Allergy (Unknown, Verified 05/26/21) (unknown) (no (unknown) (unknown) promethazine [From (units (unknown) date) PHENERGAN] Allergy unknown) (Unknown, Verified 05/26/21:) (unknown) (no (unknown) (unknown) read the note (units ( unknown) date) carefully and unknown) recognize, using context, where these substitutions (unknown) (no (unknown) (unknown) rizatriptan (units (un known) date) [RIZATRIPTAN] Allergy unknown) (Unknown, Verified 05/26/21) (unknown) (no (unknown) (unknown) software. Although (units (unknown) date) every effort is made unknown) to edit content, oracle etl developer errors (unknown) (no (unknown) (unknown) sumatriptan (units (un known) date) [SUMATRIPTAN] Allergy unknown) (Unknown, Verified 05/26/21:46) (unknown) (no (unknown) (unknown) tetracaine (units (unk nown) date) [TETRACAINE] Allergy unknown) (Unknown, Verified 05/26/21:46) (unknown) (no (unknown) (unknown) topiramate [From (units (unknown) date) TOPAMAX] Allergy unknown) (Unknown, Verified 10/07/21 14:46) (unknown) (no (unknown) (unknown) valproic acid (units ( unknown) date) [VALPROIC ACID] unknown) Allergy (Unknown, Verified 05/26/21 14:46) (unknown) (no (unknown) (unknown) vancomycin (units (unk nown) date) [VANCOMYCIN] Allergy unknown) (Unknown, Verified 05/26/21 14:46) (unknown) (no (unknown) (unknown) verapamil (units (unkn own) date) [VERAPAMIL] Allergy unknown) (Unknown, Verified 05/26/21 14:46) Result panel 2 (unknown) (no (unknown) (unknown) (no value) (units (unk nown) date) unknown) (unknown) (no (unknown) (unknown) *HORRAS* 37 Y F, (units (unknown) date) patient here today to unknown) f/u on ED visit. (unknown) (no (unknown) (unknown) 10/10/22 (units (unkno wn) date) unknown) (unknown) (no (unknown) (unknown) 14:46) (units (unkno wn) date) unknown) (unknown) (no (unknown) (unknown) Age/Sex: 37 / F Date (uni ts (unknown) date) of Service: unknown) (unknown) (no (unknown) (unknown) Allergies (units (unkn own) date) unknown) (unknown) (no (unknown) (unknown) [place] [address] (unit s (unknown) date) unknown) (unknown) (no (unknown) (unknown) Anesthesia (units (unk nown) date) unknown) (unknown) (no (unknown) (unknown) Ankle pain (units (unk nown) date) unknown) (unknown) (no (unknown) (unknown) Anxiety (units (unkno wn) date) unknown) (unknown) (no (unknown) (unknown) Asthma (units (unkno wn) date) unknown) (unknown) (no (unknown) (unknown) Attending : Lola (unit s (unknown) date) Tammy RACHEL unknown) (unknown) (no (unknown) (unknown) BLISTERS AT SITE (units (unknown) date) unknown) (unknown) (no (unknown) (unknown) Cardiac arrhythmia (units (unknown) date) unknown) (unknown) (no (unknown) (unknown) Cervical cyst (units ( unknown) date) unknown) (unknown) (no (unknown) (unknown) Chicken pox (units (un known) date) unknown) (unknown) (no (unknown) (unknown) : 1985 (units (unknown) date) Acct:[id number] unknown) (unknown) (no (unknown) (unknown) Depression (units (unk nown) date) unknown) (unknown) (no (unknown) (unknown) Dept at (units (unkno wn) date) . unknown) (unknown) (no (unknown) (unknown) Documented By: (units (unknown) date) Lola Munoz unknown) 10/10/22 0958 (unknown) (no (unknown) (unknown) Draft (units (unkno [...] (units (unknown) date) reviewed with unknown) patient: No (unknown) (no (unknown) (unknown) Health Management (units [...] date) unknown) (unknown) (no (unknown) (unknown) Intake (units (unkno wn) date) unknown) (unknown) (no (unknown) (unknown) Interstitial (units (u nknown) date) cystitis unknown) (unknown) (no (unknown) (unknown) Kidney stones (units ( unknown) date) unknown) (unknown) (no (unknown) (unknown) Loc: [facility] (units (unkno wn) date) unknown) (unknown) (no (unknown) (unknown) [id number] (units (unk nown) date) unknown) (unknown) (no [...] (unknown) (unknown) Patient: (units (unkno wn) date) Bibi Arreola unknown) MR#: (unknown) (no (unknown) (unknown) Reason [...] unknown) (unknown) (no (unknown) (unknown) Visit Reasons: (units (unknown) date) *horras pt* unknown) [facility] Follow up (unknown) (no (unknown) (unknown) acetaminophen (units ( unknown) date) [ACETAMINOPHEN] unknown) Allergy (Unknown, Verified 05/26/21 14:46) (unknown) (no (unknown) (unknown) adhesive [ADHESIVE] (unit s (unknown) date) Allergy (Unknown, unknown) Verified 05/26/21 1446) (unknown) (no (unknown) (unknown) amitriptyline (units ( [...] (unknown) date) [DIHYDROERGOTAMINE] unknown) Allergy (Unknown, Verified 05/26/21:46) (unknown) (no (unknown) (unknown) diphenhydramine (units (unknown) date) [DIPHENHYDRAMINE] unknown) Allergy (Unknown, Verified 05/26/2146) (unknown) (no (unknown) (unknown) frovatriptan (units (u nknown) date) [FROVATRIPTAN] unknown) Allergy (Unknown, Verified 05/26/21:46) (unknown) (no (unknown) (unknown) have occurred. If [...] ( unknown) date) Allergy (Unknown, unknown) Verified 05/26/2146) (unknown) (no (unknown) (unknown) may occur. (units (unk nown) date) Occasional wrong-word unknown) or 'sound-alike' substitutions may have (unknown) (no (unknown) (unknown) metoclopramide (units (unknown) date) [METOCLOPRAMIDE] unknown) Allergy (Unknown, Verified 05/26/21:46) (unknown) (no (unknown) (unknown) nortriptyline (units ( unknown) date) [NORTRIPTYLINE] unknown) Allergy (Unknown, Verified 05/26/21:46) (unknown) (no (unknown) (unknown) occurred due to the (unit s (unknown) date) inherent limitations unknown) of voice recognition software. Please (unknown) (no (unknown) (unknown) prasterone (DHEA) (units (unknown) date) [PRASTERONE (DHEA)] unknown) Allergy (Unknown, Verified 05/26/21 14:46) (unknown) (no (unknown) (unknown) prednisone (units (unk nown) date) [PREDNISONE] Allergy unknown) (Unknown, Verified 05/26/21:46) (unknown) (no (unknown) (unknown) prochlorperazine (units (unknown) [...] effort is made unknown) to edit content, oracle etl developer errors (unknown) (no (unknown) (unknown) sumatriptan (units (un known) date) [SUMATRIPTAN] Allergy unknown) (Unknown, Verified 05/26/2146) (unknown) (no (unknown) (unknown) tetracaine (units (unk nown) date) [TETRACAINE] Allergy unknown) (Unknown, Verified 05/26/21) (unknown) (no (unknown) (unknown) topiramate [From (units (unknown) date) TOPAMAX] Allergy unknown) (Unknown, Verified 05/26/21) (unknown) (no (unknown) (unknown) valproic acid (units ( unknown) date) [VALPROIC ACID] unknown) Allergy (Unknown, Verified 05/26/2146) (unknown) (no (unknown) (unknown) vancomycin (units (unk nown) date) [VANCOMYCIN] Allergy unknown) (Unknown, Verified 05/26/21) (unknown) (no (unknown) (unknown) verapamil (units (unkn own) date) [VERAPAMIL] Allergy unknown) (Unknown, Verified 05/26/21:46) Result panel 3 (unknown) (no (unknown) (unknown) (no value) (units (unk nown) date) unknown) (unknown) (no (unknown) (unknown) ##20 10/08/17 [Rx (units (unknown) date) Confirmed 10/10/22] unknown) (unknown) (no (unknown) (unknown) 'drowning on dry (units (unknown) date) land'. She has been unknown) coughing up red/black pieces. (unknown) (no (unknown) (unknown) *MARIANNA* 37 Y F, (units (unknown) date) patient here today to unknown) f/u on ED visit. She was doing better (unknown) (no (unknown) (unknown) 10/10/22 (units (unkno wn) date) unknown) (unknown) (no (unknown) (unknown) 10/10/22] (units (unkn own) date) unknown) (unknown) (no (unknown) (unknown) 05/26/21 [History (units (unknown) date) Confirmed 10/10/22] unknown) (unknown) (no (unknown) (unknown) 10:04) (units (unkno wn) date) unknown) (unknown) (no (unknown) (unknown) 10:06 (units (unkno wn) date) unknown) (unknown) (no (unknown) (unknown) Age/Sex: 37 / F Date (uni ts (unknown) date) of Service: unknown) (unknown) (no (unknown) (unknown) Allergies (units (unkn own) date) unknown) (unknown) (no (unknown) (unknown) [place] [address] (unit s (unknown) date) unknown) (unknown) (no (unknown) (unknown) Anesthesia (units (unk nown) date) unknown) (unknown) (no (unknown) (unknown) Ankle pain (units (unk nown) date) unknown) (unknown) (no (unknown) (unknown) Anxiety (units (unkno wn) date) unknown) (unknown) (no (unknown) (unknown) Asthma (units (unkno wn) date) unknown) (unknown) (no (unknown) (unknown) Attending Dr: Lola (unit s (unknown) date) Tammy RACHEL unknown) (unknown) (no (unknown) (unknown) BLISTERS AT SITE (units (unknown) date) unknown) (unknown) (no (unknown) (unknown) BMI 26.0 (units (unkno wn) date) unknown) (unknown) (no (unknown) (unknown) BP 110/68 (units (unkn own) date) unknown) (unknown) (no (unknown) (unknown) Blood Pressure (units (unknown) date) Location Lt brachial unknown) (unknown) (no (unknown) (unknown) Cardiac arrhythmia (units (unknown) date) unknown) (unknown) (no (unknown) (unknown) Cervical cyst (units ( unknown) date) unknown) (unknown) (no (unknown) (unknown) Chicken pox (units (un known) date) unknown) (unknown) (no (unknown) (unknown) Confirmed 10/10/22] (unit s (unknown) date) unknown) (unknown) (no (unknown) (unknown) : 1985 (units (unknown) date) Acct:[id number] unknown) (unknown) (no (unknown) (unknown) Depression (units (unk nown) date) unknown) (unknown) (no (unknown) (unknown) Dept at (units (unkno wn) date) . unknown) (unknown) (no (unknown) (unknown) Documented By: (units (unknown) date) Lola Munoz unknown) 10/10/22 0958 (unknown) (no (unknown) (unknown) Draft (units (unkno [...] (units (unknown) date) reviewed with unknown) patient: No (unknown) (no (unknown) (unknown) Health Management (units (unknown) date) unknown) (unknown) (no (unknown) (unknown) Hearing loss (units (u nknown) date) unknown) (unknown) (no (unknown) (unknown) Height 6 ft (units (un known) date) unknown) (unknown) (no (unknown) (unknown) Hemorrhoid [...] date) unknown) (unknown) (no (unknown) (unknown) Intake (units (unkno wn) date) unknown) (unknown) (no (unknown) (unknown) Interstitial (units (u nknown) date) cystitis unknown) (unknown) (no (unknown) (unknown) Is last menstrual (units (unknown) date) period known: No unknown) (unknown) (no (unknown) (unknown) Kidney stones (units ( unknown) date) unknown) (unknown) (no (unknown) (unknown) Last Menstural Cycle (uni ts (unknown) date) + Details unknown) (unknown) (no (unknown) (unknown) Loc: [facility] (units (unkno wn) date) unknown) (unknown) (no (unknown) (unknown) [id number] (units (unk nown) date) unknown) (unknown) (no (unknown) (unknown) Medical History (units (unknown) date) (Updated 07/07/21 @ unknown) 21:03 by Jovita Pham) (unknown) (no (unknown) (unknown) Medications (units (un known) date) unknown) (unknown) (no (unknown) (unknown) Mental health (units ( unknown) date) problem unknown) (unknown) (no (unknown) (unknown) Migraines (units (unkn own) date) unknown) (unknown) (no (unknown) (unknown) Mother (units (unknown) date) Cancer unknown) (unknown) (no (unknown) (unknown) Ovarian cyst (units (u nknown) date) unknown) (unknown) (no (unknown) (unknown) Oxygen Delivery (units (unknown) date) Method room air unknown) (unknown) (no (unknown) (unknown) PFSH (units (unkno wn) date) unknown) (unknown) (no (unknown) (unknown) PLASTIC MEDICAL TAPE (uni ts (unknown) date) Allergy (Mild, unknown) Uncoded 10/10/22 10:04) (unknown) (no (unknown) (unknown) PTSD (post-traumatic (uni ts (unknown) date) stress disorder) unknown) (unknown) (no (unknown) (unknown) Painful menstrual (units (unknown) date) periods unknown) (unknown) (no (unknown) (unknown) Patient: (units (unkno wn) date) MaxwellBibi W unknown) MR#: (unknown) (no (unknown) (unknown) Position Sitting (units (unknown) date) unknown) (unknown) (no (unknown) (unknown) Pulse 92 H (units (unk nown) date) unknown) (unknown) (no (unknown) (unknown) Pulse Oximetry (%) (units (unknown) date) 99 unknown) (unknown) (no (unknown) (unknown) Pulse Source Monitor (uni ts (unknown) date) unknown) (unknown) (no (unknown) (unknown) Reason For Visit (units (unknown) date) unknown) (unknown) (no (unknown) (unknown) Respiration 18 (units (unknown) date) unknown) (unknown) (no (unknown) [...] ischemic attack) unknown) (unknown) (no (unknown) (unknown) Temp 98.2 F (units (un known) date) unknown) (unknown) (no (unknown) (unknown) Temp Source Temporal (uni ts (unknown) date) Artery Scan unknown) (unknown) (no (unknown) (unknown) This note [...] unknown) (unknown) (no (unknown) (unknown) Visit Reasons: (units (unknown) date) *horras pt* unknown) [facility] Follow up (unknown) (no (unknown) (unknown) Vitals (units (unkno wn) date) unknown) (unknown) (no (unknown) (unknown) Weight 192 lb (units ( unknown) date) unknown) (unknown) (no (unknown) (unknown) [History Confirmed (units (unknown) date) 10/10/22] unknown) (unknown) (no (unknown) (unknown) acetaminophen (units ( unknown) date) [ACETAMINOPHEN] unknown) Allergy (Unknown, Verified 10/10/22 10:04) (unknown) (no (unknown) (unknown) adhesive [ADHESIVE] (unit s (unknown) date) Allergy (Unknown, unknown) Verified 10/10/22 10:04) (unknown) (no (unknown) (unknown) amitriptyline (units ( unknown) date) [AMITRIPTYLINE] unknown) Allergy (Unknown, Verified 10/10/22 10:04) (unknown) (no (unknown) (unknown) aspirin [ASPIRIN] (units (unknown) date) Allergy (Unknown, unknown) Verified 10/10/22 10:04) (unknown) (no (unknown) (unknown) benzocaine (units (unk nown) date) [BENZOCAINE] Allergy unknown) (Unknown, Verified 10/10/22 10:04) (unknown) (no (unknown) (unknown) biotin 1 mg capsule (unit s (unknown) date) 1 mg PO DAILY unknown) 05/26/21 [History Confirmed 10/10/22] (unknown) (no (unknown) (unknown) butamben [From (units (unknown) date) CETACAINE] Allergy unknown) (Unknown, Verified 10/10/22 10:04) (unknown) (no (unknown) (unknown) cholecalciferol (units (unknown) date) (vitamin D3) 250 mcg unknown) (10,000 unit) capsule 250 mcg PO DAILY (unknown) (no (unknown) (unknown) clonazepam 1 mg (units (unknown) date) tablet 1 - 2 mg PO unknown) BID 05/26/21 [History Confirmed 10/10/22] (unknown) (no (unknown) (unknown) dexamethasone (units ( unknown) date) [DEXAMETHASONE] unknown) Allergy (Unknown, Verified 10/10/22 10:04) (unknown) (no (unknown) (unknown) dextroamphetamine-am (uni ts (unknown) date) phetamine 10 mg unknown) tablet (Adderall) 20 mg PO BID #0 tabs (unknown) (no (unknown) (unknown) dicloxacillin (units ( unknown) date) [DICLOXACILLIN] unknown) Allergy (Unknown, Verified 10/10/22 10:04) (unknown) (no (unknown) (unknown) dihydroergocristine (unit s (unknown) date) [DIHYDROERGOCRISTINE] unknown) Allergy (Unknown, Verified 10/10/22 (unknown) (no (unknown) (unknown) dihydroergotamine (units (unknown) date) [DIHYDROERGOTAMINE] unknown) Allergy (Unknown, Verified 10/10/22 10:04) (unknown) (no (unknown) (unknown) diphenhydramine (units (unknown) date) [DIPHENHYDRAMINE] unknown) Allergy (Unknown, Verified 10/10/22 10:04) (unknown) (no (unknown) (unknown) epinephrine 0.3 (units (unknown) date) mg/0.3 mL injection, unknown) auto-injector 0.3 mg IM ONCE 05/26/21 (unknown) (no (unknown) (unknown) frovatriptan (units (u nknown) date) [FROVATRIPTAN] unknown) Allergy (Unknown, Verified 10/10/22 10:04) (unknown) (no (unknown) (unknown) have occurred. If (units (unknown) date) there are any unknown) questions, please contact the Medical Records (unknown) (no (unknown) (unknown) hydroxyzine (units (un known) date) [HYDROXYZINE] Allergy unknown) (Unknown, Verified 10/10/22 10:04) (unknown) (no (unknown) (unknown) ibuprofen (units (unkn own) date) [IBUPROFEN] Allergy unknown) (Unknown, Verified 10/10/22 10:04) (unknown) (no (unknown) (unknown) latex [LATEX] (units ( unknown) date) Allergy (Unknown, unknown) Verified 10/10/22 10:04) (unknown) (no (unknown) (unknown) magnesium glycinate (unit s (unknown) date) 100 mg tablet 100 mg unknown) PO DAILY 05/26/21 [History Confirmed (unknown) (no (unknown) (unknown) may occur. (units (unk nown) date) Occasional wrong-word unknown) or 'sound-alike' substitutions may have (unknown) (no (unknown) (unknown) melatonin 10 mg (units (unknown) date) capsule 10 mg PO unknown) BEDTIME PRN 05/26/21 [History Confirmed (unknown) (no (unknown) (unknown) meloxicam 7.5 mg (units (unknown) date) tablet (Mobic) 15 mg unknown) PO [facility] 05/26/21 [History Confirmed (unknown) (no (unknown) (unknown) metoclopramide (units (unknown) date) [METOCLOPRAMIDE] unknown) Allergy (Unknown, Verified 10/10/22 10:04) (unknown) (no (unknown) (unknown) nortriptyline (units ( unknown) date) [NORTRIPTYLINE] unknown) Allergy (Unknown, Verified 10/10/22 10:04) (unknown) (no (unknown) (unknown) occurred due to the (unit s (unknown) date) inherent limitations unknown) of voice recognition software. Please (unknown) (no (unknown) (unknown) ondansetron 8 mg (units (unknown) date) disintegrating tablet unknown) (Zofran ODT) 8 mg sublingual Q6HP PRN (unknown) (no (unknown) (unknown) oxycodone 10 mg (units (unknown) date) tablet 10 mg PO Q4H unknown) PRN 05/26/21 [History Confirmed 10/10/22] (unknown) (no (unknown) (unknown) prasterone (DHEA) (units (unknown) date) [PRASTERONE (DHEA)] unknown) Allergy (Unknown, Verified 10/10/22 10:04) (unknown) (no (unknown) (unknown) prednisone (units (unk nown) date) [PREDNISONE] Allergy unknown) (Unknown, Verified 10/10/22 10:04) (unknown) (no (unknown) (unknown) pregabalin 100 mg (units (unknown) date) capsule (Lyrica) 200 unknown) mg PO BID 05/26/21 [History Confirmed (unknown) (no (unknown) (unknown) prochlorperazine (units (unknown) date) [From COMPAZINE] unknown) Allergy (Unknown, Verified 10/10/22 10:04) (unknown) (no (unknown) (unknown) promethazine [From (units (unknown) date) PHENERGAN] Allergy unknown) (Unknown, Verified 10/10/22 10:04) (unknown) (no (unknown) (unknown) read the note (units ( unknown) date) carefully and unknown) recognize, using context, where these substitutions (unknown) (no (unknown) (unknown) rimegepant 75 mg (units (unknown) date) disintegrating tablet unknown) [facility] 75 mg PO ONCE PRN 05/26/21 (unknown) (no (unknown) (unknown) rizatriptan (units (un known) date) [RIZATRIPTAN] Allergy unknown) (Unknown, Verified 10/10/22 10:04) (unknown) (no (unknown) (unknown) software. Although (units (unknown) date) every effort is made unknown) to edit content, oracle etl developer errors (unknown) (no (unknown) (unknown) sumatriptan (units (un known) date) [SUMATRIPTAN] Allergy unknown) (Unknown, Verified 10/10/22 10:04) (unknown) (no (unknown) (unknown) temazepam 30 mg (units (unknown) date) capsule 30 mg PO unknown) BEDTIME PRN 05/26/21 [History Confirmed (unknown) (no (unknown) (unknown) tetracaine (units (unk nown) date) [TETRACAINE] Allergy unknown) (Unknown, Verified 10/10/22 10:04) (unknown) (no (unknown) (unknown) topiramate [From (units (unknown) date) TOPAMAX] Allergy unknown) (Unknown, Verified 10/10/22 10:04) (unknown) (no (unknown) (unknown) valproic acid (units ( unknown) date) [VALPROIC ACID] unknown) Allergy (Unknown, Verified 10/10/22 10:04) (unknown) (no (unknown) (unknown) vancomycin (units (unk nown) date) [VANCOMYCIN] Allergy unknown) (Unknown, Verified 10/10/22 10:04) (unknown) (no (unknown) (unknown) verapamil (units (unkn own) date) [VERAPAMIL] Allergy unknown) (Unknown, Verified 10/10/22 10:04) (unknown) (no (unknown) (unknown) when she first wakes (uni ts (unknown) date) up, midday and in the unknown) evening she feels like she is (unknown) (no (unknown) (unknown) while on the cough (units (unknown) date) syrup, but she is out unknown) and she is not better. She reports that (unknown) (no (unknown) (unknown) zinc sulfate 50 mg (units (unknown) date) zinc (220 mg) tablet unknown) 50 mg PO DAILY 05/26/21 [History Result panel 4 (unknown) (no (unknown) (unknown) (no value) (units (unk nown) date) unknown) (unknown) (no (unknown) (unknown) ##20 10/08/17 [Rx (units (unknown) date) Confirmed 10/10/22] unknown) (unknown) (no (unknown) (unknown) 'drowning on dry (units (unknown) date) land'. She has been unknown) coughing up red/black pieces. (unknown) (no (unknown) (unknown) *HORRAS* 37 Y F, (units (unknown) date) patient here today to unknown) f/u on ED visit. She was doing better (unknown) (no (unknown) (unknown) 10/10/22 (units (unkno wn) date) unknown) (unknown) (no (unknown) (unknown) 10/10/22] (units (unkn own) date) unknown) (unknown) (no (unknown) (unknown) 05/26/21 [History (units (unknown) date) Confirmed 10/10/22] unknown) (unknown) (no (unknown) (unknown) 10:04) (units (unkno wn) date) unknown) (unknown) (no (unknown) (unknown) 10:06 (units (unkno wn) date) unknown) (unknown) (no (unknown) (unknown) Age/Sex: 37 / F Date (uni ts (unknown) date) of Service: unknown) (unknown) (no (unknown) (unknown) Allergies (units (unkn own) date) unknown) (unknown) (no (unknown) (unknown) [place] [id number] (unit s (unknown) date) unknown) (unknown) (no (unknown) (unknown) Anesthesia (units (unk nown) date) unknown) (unknown) (no (unknown) (unknown) Ankle pain (units (unk nown) date) unknown) (unknown) (no (unknown) (unknown) Anxiety (units (unkno wn) date) unknown) (unknown) (no (unknown) (unknown) Asthma (units (unkno wn) date) unknown) (unknown) (no (unknown) (unknown) Attending Dr: Lola (unit s (unknown) date) Tammy RACHEL unknown) (unknown) (no (unknown) (unknown) BLISTERS AT SITE (units (unknown) date) unknown) (unknown) (no (unknown) (unknown) BMI 26.0 (units (unkno wn) date) unknown) (unknown) (no (unknown) (unknown) BP 110/68 (units (unkn own) date) unknown) (unknown) (no (unknown) (unknown) Blood Pressure (units (unknown) date) Location Lt brachial unknown) (unknown) (no (unknown) (unknown) Cardiac arrhythmia (units (unknown) date) unknown) (unknown) (no (unknown) (unknown) Cervical cyst (units ( unknown) date) unknown) (unknown) (no (unknown) (unknown) Chicken pox (units (un known) date) unknown) (unknown) (no (unknown) (unknown) Chief Complaint (units (unknown) date) unknown) (unknown) (no (unknown) (unknown) Chief Complaint: ED (unit s (unknown) date) f/u SOB from COVID unknown) (unknown) (no (unknown) (unknown) Confirmed 10/10/22] (unit s (unknown) date) unknown) (unknown) (no (unknown) (unknown) : 1985 (units (unknown) date) Acct:[id number] unknown) (unknown) (no (unknown) (unknown) Depression (units (unk nown) date) unknown) (unknown) (no (unknown) (unknown) Dept at (units (unkno wn) date) . unknown) (unknown) (no (unknown) (unknown) Details: (units (unkno wn) date) unknown) (unknown) (no (unknown) (unknown) Documented By: (units (unknown) date) Lola MunozP unknown) 10/10/22 0958 (unknown) (no (unknown) (unknown) Draft (units (unkno [...] date) Stroke unknown) (unknown) (no (unknown) (unknown) HPI (units (unkno wn) date) unknown) (unknown) (no (unknown) (unknown) Headache (units (unkno wn) date) unknown) (unknown) (no (unknown) (unknown) Health Management (units (unknown) date) reviewed with unknown) patient: No (unknown) (no (unknown) (unknown) Health Management (units (unknown) date) unknown) (unknown) (no (unknown) (unknown) Hearing loss (units (u nknown) date) unknown) (unknown) (no (unknown) (unknown) Height 6 ft (units (un known) date) unknown) (unknown) (no (unknown) (unknown) Hemorrhoid [...] date) unknown) (unknown) (no (unknown) (unknown) Intake (units (unkno wn) date) unknown) (unknown) (no (unknown) (unknown) Interstitial (units (u nknown) date) cystitis unknown) (unknown) (no (unknown) (unknown) Is last menstrual (units (unknown) date) period known: No unknown) (unknown) (no (unknown) (unknown) Kidney stones (units ( unknown) date) unknown) (unknown) (no (unknown) (unknown) Last Menstural Cycle (uni ts (unknown) date) + Details unknown) (unknown) (no (unknown) (unknown) Loc: [facility] (units (unkno wn) date) unknown) (unknown) (no (unknown) (unknown) [id number] (units (unk nown) date) unknown) (unknown) (no (unknown) (unknown) Medical History (units (unknown) date) (Updated 07/07/21 @ unknown) 21:03 by Jovita Pham) (unknown) (no (unknown) (unknown) Medications (units (un known) date) unknown) (unknown) (no (unknown) (unknown) Mental health (units ( unknown) date) problem unknown) (unknown) (no (unknown) (unknown) Migraines (units (unkn own) date) unknown) (unknown) (no (unknown) (unknown) Mother (units (unknown) date) Cancer unknown) (unknown) (no (unknown) (unknown) Ovarian cyst (units (u nknown) date) unknown) (unknown) (no (unknown) (unknown) Oxygen Delivery (units (unknown) date) Method room air unknown) (unknown) (no (unknown) (unknown) PFSH (units (unkno wn) date) unknown) (unknown) (no (unknown) (unknown) PLASTIC MEDICAL TAPE (uni ts (unknown) date) Allergy (Mild, unknown) Uncoded 10/10/22 10:04) (unknown) (no (unknown) (unknown) PTSD (post-traumatic (uni ts (unknown) date) stress disorder) unknown) (unknown) (no (unknown) (unknown) Painful menstrual (units (unknown) date) periods unknown) (unknown) (no (unknown) (unknown) Patient comes in for (uni ts (unknown) date) ED f/u ongoing unknown) symptoms of COVID. (unknown) (no (unknown) (unknown) Patient: (units (unkno wn) date) Bibi Arreola W unknown) MR#: (unknown) (no (unknown) (unknown) Position Sitting (units (unknown) date) unknown) (unknown) (no (unknown) (unknown) Pulse 92 H (units (unk nown) date) unknown) (unknown) (no (unknown) (unknown) Pulse Oximetry (%) (units (unknown) date) 99 unknown) (unknown) (no (unknown) (unknown) Pulse Source Monitor (uni ts (unknown) date) unknown) (unknown) (no (unknown) (unknown) Reason For Visit (units (unknown) date) unknown) (unknown) (no (unknown) (unknown) Respiration 18 (units (unknown) date) unknown) (unknown) (no (unknown) [...] ischemic attack) unknown) (unknown) (no (unknown) (unknown) Temp 98.2 F (units (un known) date) unknown) (unknown) (no (unknown) (unknown) Temp Source Temporal (uni ts (unknown) date) Artery Scan unknown) (unknown) (no (unknown) (unknown) This note [...] unknown) (unknown) (no (unknown) (unknown) Visit Reasons: (units (unknown) date) *[facility] pt* unknown) [facility] Follow up (unknown) (no (unknown) (unknown) Vitals (units (unkno wn) date) unknown) (unknown) (no (unknown) (unknown) Weight 192 lb (units ( unknown) date) unknown) (unknown) (no (unknown) (unknown) [History Confirmed (units (unknown) date) 10/10/22] unknown) (unknown) (no (unknown) (unknown) acetaminophen (units ( unknown) date) [ACETAMINOPHEN] unknown) Allergy (Unknown, Verified 10/10/22 10:04) (unknown) (no (unknown) (unknown) adhesive [ADHESIVE] (unit s (unknown) date) Allergy (Unknown, unknown) Verified 10/10/22 10:04) (unknown) (no (unknown) (unknown) amitriptyline (units ( unknown) date) [AMITRIPTYLINE] unknown) Allergy (Unknown, Verified 10/10/22 10:04) (unknown) (no (unknown) (unknown) aspirin [ASPIRIN] (units (unknown) date) Allergy (Unknown, unknown) Verified 10/10/22 10:04) (unknown) (no (unknown) (unknown) benzocaine (units (unk nown) date) [BENZOCAINE] Allergy unknown) (Unknown, Verified 10/10/22 10:04) (unknown) (no (unknown) (unknown) biotin 1 mg capsule (unit s (unknown) date) 1 mg PO DAILY unknown) 05/26/21 [History Confirmed 10/10/22] (unknown) (no (unknown) (unknown) butamben [From (units (unknown) date) CETACAINE] Allergy unknown) (Unknown, Verified 10/10/22 10:04) (unknown) (no (unknown) (unknown) cholecalciferol (units (unknown) date) (vitamin D3) 250 mcg unknown) (10,000 unit) capsule 250 mcg PO DAILY (unknown) (no (unknown) (unknown) clonazepam 1 mg (units (unknown) date) tablet 1 - 2 mg PO unknown) BID 05/26/21 [History Confirmed 10/10/22] (unknown) (no (unknown) (unknown) dexamethasone (units ( unknown) date) [DEXAMETHASONE] unknown) Allergy (Unknown, Verified 10/10/22 10:04) (unknown) (no (unknown) (unknown) dextroamphetamine-am (uni ts (unknown) date) phetamine 10 mg unknown) tablet (Adderall) 20 mg PO BID #0 tabs (unknown) (no (unknown) (unknown) dicloxacillin (units ( unknown) date) [DICLOXACILLIN] unknown) Allergy (Unknown, Verified 10/10/22 10:04) (unknown) (no (unknown) (unknown) dihydroergocristine (unit s (unknown) date) [DIHYDROERGOCRISTINE] unknown) Allergy (Unknown, Verified 10/10/22 (unknown) (no (unknown) (unknown) dihydroergotamine (units (unknown) date) [DIHYDROERGOTAMINE] unknown) Allergy (Unknown, Verified 10/10/22 10:04) (unknown) (no (unknown) (unknown) diphenhydramine (units (unknown) date) [DIPHENHYDRAMINE] unknown) Allergy (Unknown, Verified 10/10/22 10:04) (unknown) (no (unknown) (unknown) epinephrine 0.3 (units (unknown) date) mg/0.3 mL injection, unknown) auto-injector 0.3 mg IM ONCE 05/26/21 (unknown) (no (unknown) (unknown) frovatriptan (units (u nknown) date) [FROVATRIPTAN] unknown) Allergy (Unknown, Verified 10/10/22 10:04) (unknown) (no (unknown) (unknown) have occurred. If (units (unknown) date) there are any unknown) questions, please contact the Medical Records (unknown) (no (unknown) (unknown) hydroxyzine (units (un known) date) [HYDROXYZINE] Allergy unknown) (Unknown, Verified 10/10/22 10:04) (unknown) (no (unknown) (unknown) ibuprofen (units (unkn own) date) [IBUPROFEN] Allergy unknown) (Unknown, Verified 10/10/22 10:04) (unknown) (no (unknown) (unknown) latex [LATEX] (units ( unknown) date) Allergy (Unknown, unknown) Verified 10/10/22 10:04) (unknown) (no (unknown) (unknown) magnesium glycinate (unit s (unknown) date) 100 mg tablet 100 mg unknown) PO DAILY 05/26/21 [History Confirmed (unknown) (no (unknown) (unknown) may occur. (units (unk nown) date) Occasional wrong-word unknown) or 'sound-alike' substitutions may have (unknown) (no (unknown) (unknown) melatonin 10 mg (units (unknown) date) capsule 10 mg PO unknown) BEDTIME PRN 05/26/21 [History Confirmed (unknown) (no (unknown) (unknown) meloxicam 7.5 mg (units (unknown) date) tablet (Mobic) 15 mg unknown) PO [facility] 05/26/21 [History Confirmed (unknown) (no (unknown) (unknown) metoclopramide (units (unknown) date) [METOCLOPRAMIDE] unknown) Allergy (Unknown, Verified 10/10/22 10:04) (unknown) (no (unknown) (unknown) nortriptyline (units ( unknown) date) [NORTRIPTYLINE] unknown) Allergy (Unknown, Verified 10/10/22 10:04) (unknown) (no (unknown) (unknown) occurred due to the (unit s (unknown) date) inherent limitations unknown) of voice recognition software. Please (unknown) (no (unknown) (unknown) ondansetron 8 mg (units (unknown) date) disintegrating tablet unknown) (Zofran ODT) 8 mg sublingual Q6HP PRN (unknown) (no (unknown) (unknown) oxycodone 10 mg (units (unknown) date) tablet 10 mg PO Q4H unknown) PRN 05/26/21 [History Confirmed 10/10/22] (unknown) (no (unknown) (unknown) prasterone (DHEA) (units (unknown) date) [PRASTERONE (DHEA)] unknown) Allergy (Unknown, Verified 10/10/22 10:04) (unknown) (no (unknown) (unknown) prednisone (units (unk nown) date) [PREDNISONE] Allergy unknown) (Unknown, Verified 10/10/22 10:04) (unknown) (no (unknown) (unknown) pregabalin 100 mg (units (unknown) date) capsule (Lyrica) 200 unknown) mg PO BID 05/26/21 [History Confirmed (unknown) (no (unknown) (unknown) prochlorperazine (units (unknown) date) [From COMPAZINE] unknown) Allergy (Unknown, Verified 10/10/22 10:04) (unknown) (no (unknown) (unknown) promethazine [From (units (unknown) date) PHENERGAN] Allergy unknown) (Unknown, Verified 10/10/22 10:04) (unknown) (no (unknown) (unknown) read the note (units ( unknown) date) carefully and unknown) recognize, using context, where these substitutions (unknown) (no (unknown) (unknown) rimegepant 75 mg (units (unknown) date) disintegrating tablet unknown) (Nurtec ODT) 75 mg PO ONCE PRN 05/26/21 (unknown) (no (unknown) (unknown) rizatriptan (units (un known) date) [RIZATRIPTAN] Allergy unknown) (Unknown, Verified 10/10/22 10:04) (unknown) (no (unknown) (unknown) software. Although (units (unknown) date) every effort is made unknown) to edit content, oracle etl developer errors (unknown) (no (unknown) (unknown) sumatriptan (units (un known) date) [SUMATRIPTAN] Allergy unknown) (Unknown, Verified 10/10/22 10:04) (unknown) (no (unknown) (unknown) temazepam 30 mg (units (unknown) date) capsule 30 mg PO unknown) BEDTIME PRN 05/26/21 [History Confirmed (unknown) (no (unknown) (unknown) tetracaine (units (unk nown) date) [TETRACAINE] Allergy unknown) (Unknown, Verified 10/10/22 10:04) (unknown) (no (unknown) (unknown) topiramate [From (units (unknown) date) TOPAMAX] Allergy unknown) (Unknown, Verified 10/10/22 10:04) (unknown) (no (unknown) (unknown) valproic acid (units ( unknown) date) [VALPROIC ACID] unknown) Allergy (Unknown, Verified 10/10/22 10:04) (unknown) (no (unknown) (unknown) vancomycin (units (unk nown) date) [VANCOMYCIN] Allergy unknown) (Unknown, Verified 10/10/22 10:04) (unknown) (no (unknown) (unknown) verapamil (units (unkn own) date) [VERAPAMIL] Allergy unknown) (Unknown, Verified 10/10/22 10:04) (unknown) (no (unknown) (unknown) when she first wakes (uni ts (unknown) date) up, midday and in the unknown) evening she feels like she is (unknown) (no (unknown) (unknown) while on the cough (units (unknown) date) syrup, but she is out unknown) and she is not better. She reports that (unknown) (no (unknown) (unknown) zinc sulfate 50 mg (units (unknown) date) zinc (220 mg) tablet unknown) 50 mg PO DAILY 05/26/21 [History Result panel 5 (unknown) (no (unknown) (unknown) (no value) (units (unk nown) date) unknown) (unknown) (no (unknown) (unknown) ##20 10/08/17 [Rx (units (unknown) date) Confirmed 10/10/22] unknown) (unknown) (no (unknown) (unknown) 'drowning on dry (units (unknown) date) land'. She has been unknown) coughing up red/black pieces. (unknown) (no (unknown) (unknown) *MARIANNA* 37 Y F, (units (unknown) date) patient here today to unknown) f/u on ED visit. She was doing better (unknown) (no (unknown) (unknown) 10/10/22 (units (unkno wn) date) unknown) (unknown) (no (unknown) (unknown) 10/10/22] (units (unkn own) date) unknown) (unknown) (no (unknown) (unknown) 05/26/21 [History (units (unknown) date) Confirmed 10/10/22] unknown) (unknown) (no (unknown) (unknown) 10:04) (units (unkno wn) date) unknown) (unknown) (no (unknown) (unknown) 10:06 (units (unkno wn) date) unknown) (unknown) (no (unknown) (unknown) Age/Sex: 37 / F Date (uni ts (unknown) date) of Service: unknown) (unknown) (no (unknown) (unknown) Allergies (units (unkn own) date) unknown) (unknown) (no (unknown) (unknown) [place] [id number] (unit s (unknown) date) unknown) (unknown) (no (unknown) (unknown) Anesthesia (units (unk nown) date) unknown) (unknown) (no (unknown) (unknown) Ankle pain (units (unk nown) date) unknown) (unknown) (no (unknown) (unknown) Anxiety (units (unkno wn) date) unknown) (unknown) (no (unknown) (unknown) Asthma (units (unkno wn) date) unknown) (unknown) (no (unknown) (unknown) Attending Dr: Lola (unit s (unknown) date) Tammy RACHEL unknown) (unknown) (no (unknown) (unknown) BLISTERS AT SITE (units (unknown) date) unknown) (unknown) (no (unknown) (unknown) BMI 26.0 (units (unkno wn) date) unknown) (unknown) (no (unknown) (unknown) BP 110/68 (units (unkn own) date) unknown) (unknown) (no (unknown) (unknown) Blood Pressure (units (unknown) date) Location Lt brachial unknown) (unknown) (no (unknown) (unknown) Cardiac arrhythmia (units (unknown) date) unknown) (unknown) (no (unknown) (unknown) Cervical cyst (units ( unknown) date) unknown) (unknown) (no (unknown) (unknown) Chicken pox (units (un known) date) unknown) (unknown) (no (unknown) (unknown) Chief Complaint (units (unknown) date) unknown) (unknown) (no (unknown) (unknown) Chief Complaint: ED (unit s (unknown) date) f/u SOB from COVID unknown) (unknown) (no (unknown) (unknown) Confirmed 10/10/22] (unit s (unknown) date) unknown) (unknown) (no (unknown) (unknown) : 1985 (units (unknown) date) Acct:[id number] unknown) (unknown) (no (unknown) (unknown) Depression (units (unk nown) date) unknown) (unknown) (no (unknown) (unknown) Dept at (units (unkno wn) date) . unknown) (unknown) (no (unknown) (unknown) Details: (units (unkno wn) date) unknown) (unknown) (no (unknown) (unknown) Documented By: (units (unknown) date) Lola Munoz unknown) 10/10/22 0958 (unknown) (no (unknown) (unknown) Draft (units (unkno [...] date) Stroke unknown) (unknown) (no (unknown) (unknown) HPI (units (unkno wn) date) unknown) (unknown) (no (unknown) (unknown) Headache (units (unkno wn) date) unknown) (unknown) (no (unknown) (unknown) Health Management (units (unknown) date) reviewed with unknown) patient: No (unknown) (no (unknown) (unknown) Health Management (units (unknown) date) unknown) (unknown) (no (unknown) (unknown) Hearing loss (units (u nknown) date) unknown) (unknown) (no (unknown) (unknown) Height 6 ft (units (un known) date) unknown) (unknown) (no (unknown) (unknown) Hemorrhoid [...] date) unknown) (unknown) (no (unknown) (unknown) Intake (units (unkno wn) date) unknown) (unknown) (no (unknown) (unknown) Interstitial (units (u nknown) date) cystitis unknown) (unknown) (no (unknown) (unknown) Is last menstrual (units (unknown) date) period known: No unknown) (unknown) (no (unknown) (unknown) Kidney stones (units ( unknown) date) unknown) (unknown) (no (unknown) (unknown) Last Menstural Cycle (uni ts (unknown) date) + Details unknown) (unknown) (no (unknown) (unknown) Loc: [facility] (units (unkno wn) date) unknown) (unknown) (no (unknown) (unknown) [id number] (units (unk nown) date) unknown) (unknown) (no (unknown) (unknown) Medical History (units (unknown) date) (Updated 07/07/21 @ unknown) 21:03 by Jovita Pham) (unknown) (no (unknown) (unknown) Medications (units (un known) date) unknown) (unknown) (no (unknown) (unknown) Mental health (units ( unknown) date) problem unknown) (unknown) (no (unknown) (unknown) Migraines (units (unkn own) date) unknown) (unknown) (no (unknown) (unknown) Mother (units (unknown) date) Cancer unknown) (unknown) (no (unknown) (unknown) Ovarian cyst (units (u nknown) date) unknown) (unknown) (no (unknown) (unknown) Oxygen Delivery (units (unknown) date) Method room air unknown) (unknown) (no (unknown) (unknown) PFSH (units (unkno wn) date) unknown) (unknown) (no (unknown) (unknown) PLASTIC MEDICAL TAPE (uni ts (unknown) date) Allergy (Mild, unknown) Uncoded 10/10/22 10:04) (unknown) (no (unknown) (unknown) PTSD (post-traumatic (uni ts (unknown) date) stress disorder) unknown) (unknown) (no (unknown) (unknown) Painful menstrual (units (unknown) date) periods unknown) (unknown) (no (unknown) (unknown) Patient with history (uni ts (unknown) date) of multiple unknown) occurrences of spontaneous respiratory failure (unknown) (no (unknown) (unknown) Patient: (units (unkno wn) date) Bibi Arreola unknown) MR#: (unknown) (no (unknown) (unknown) Position Sitting (units (unknown) date) unknown) (unknown) (no (unknown) (unknown) Pulse 92 H (units (unk nown) date) unknown) (unknown) (no (unknown) (unknown) Pulse Oximetry (%) (units (unknown) date) 99 unknown) (unknown) (no (unknown) (unknown) Pulse Source Monitor (uni ts (unknown) date) unknown) (unknown) (no (unknown) (unknown) Reason For Visit (units (unknown) date) unknown) (unknown) (no (unknown) (unknown) Respiration 18 (units (unknown) date) unknown) (unknown) (no (unknown) [...] ischemic attack) unknown) (unknown) (no (unknown) (unknown) Temp 98.2 F (units (un known) date) unknown) (unknown) (no (unknown) (unknown) Temp Source Temporal (uni ts (unknown) date) Artery Scan unknown) (unknown) (no (unknown) (unknown) This note [...] unknown) (unknown) (no (unknown) (unknown) Visit Reasons: (units (unknown) date) *[facility] pt* unknown) [facility] Follow up (unknown) (no (unknown) (unknown) Vitals (units (unkno wn) date) unknown) (unknown) (no (unknown) (unknown) Weight 192 lb (units ( unknown) date) unknown) (unknown) (no (unknown) (unknown) [History Confirmed (units (unknown) date) 10/10/22] unknown) (unknown) (no (unknown) (unknown) acetaminophen (units ( unknown) date) [ACETAMINOPHEN] unknown) Allergy (Unknown, Verified 10/10/22 10:04) (unknown) (no (unknown) (unknown) adhesive [ADHESIVE] (unit s (unknown) date) Allergy (Unknown, unknown) Verified 10/10/22 10:04) (unknown) (no (unknown) (unknown) amitriptyline (units ( unknown) date) [AMITRIPTYLINE] unknown) Allergy (Unknown, Verified 10/10/22 10:04) (unknown) (no (unknown) (unknown) aspirin [ASPIRIN] (units (unknown) date) Allergy (Unknown, unknown) Verified 10/10/22 10:04) (unknown) (no (unknown) (unknown) benzocaine (units (unk nown) date) [BENZOCAINE] Allergy unknown) (Unknown, Verified 10/10/22 10:04) (unknown) (no (unknown) (unknown) biotin 1 mg capsule (unit s (unknown) date) 1 mg PO DAILY unknown) 05/26/21 [History Confirmed 10/10/22] (unknown) (no (unknown) (unknown) butamben [From (units (unknown) date) CETACAINE] Allergy unknown) (Unknown, Verified 10/10/22 10:04) (unknown) (no (unknown) (unknown) cholecalciferol (units (unknown) date) (vitamin D3) 250 mcg unknown) (10,000 unit) capsule 250 mcg PO DAILY (unknown) (no (unknown) (unknown) clonazepam 1 mg (units (unknown) date) tablet 1 - 2 mg PO unknown) BID 05/26/21 [History Confirmed 10/10/22] (unknown) (no (unknown) (unknown) comes in for ED f/u (unit s (unknown) date) ongoing hemoptysis unknown) after having COVID 09/20/2022. X-Ray (unknown) (no (unknown) (unknown) dexamethasone (units ( unknown) date) [DEXAMETHASONE] unknown) Allergy (Unknown, Verified 10/10/22 10:04) (unknown) (no (unknown) (unknown) dextroamphetamine-am (uni ts (unknown) date) phetamine 10 mg unknown) tablet (Adderall) 20 mg PO BID #0 tabs (unknown) (no (unknown) (unknown) dicloxacillin (units ( unknown) date) [DICLOXACILLIN] unknown) Allergy (Unknown, Verified 10/10/22 10:04) (unknown) (no (unknown) (unknown) dihydroergocristine (unit s (unknown) date) [DIHYDROERGOCRISTINE] unknown) Allergy (Unknown, Verified 10/10/22 (unknown) (no (unknown) (unknown) dihydroergotamine (units (unknown) date) [DIHYDROERGOTAMINE] unknown) Allergy (Unknown, Verified 10/10/22 10:04) (unknown) (no (unknown) (unknown) diphenhydramine (units (unknown) date) [DIPHENHYDRAMINE] unknown) Allergy (Unknown, Verified 10/10/22 10:04) (unknown) (no (unknown) (unknown) epinephrine 0.3 (units (unknown) date) mg/0.3 mL injection, unknown) auto-injector 0.3 mg IM ONCE 05/26/21 (unknown) (no (unknown) (unknown) frovatriptan (units (u nknown) date) [FROVATRIPTAN] unknown) Allergy (Unknown, Verified 10/10/22 10:04) (unknown) (no (unknown) (unknown) have occurred. If (units (unknown) date) there are any unknown) questions, please contact the Medical Records (unknown) (no (unknown) (unknown) hydroxyzine (units (un known) date) [HYDROXYZINE] Allergy unknown) (Unknown, Verified 10/10/22 10:04) (unknown) (no (unknown) (unknown) ibuprofen (units (unkn own) date) [IBUPROFEN] Allergy unknown) (Unknown, Verified 10/10/22 10:04) (unknown) (no (unknown) (unknown) latex [LATEX] (units ( unknown) date) Allergy (Unknown, unknown) Verified 10/10/22 10:04) (unknown) (no (unknown) (unknown) magnesium glycinate (unit s (unknown) date) 100 mg tablet 100 mg unknown) PO DAILY 05/26/21 [History Confirmed (unknown) (no (unknown) (unknown) may occur. (units (unk nown) date) Occasional wrong-word unknown) or 'sound-alike' substitutions may have (unknown) (no (unknown) (unknown) medicine with (units ( unknown) date) codeine and tessalon unknown) perrles. Agrees to have chest CT scan. (unknown) (no (unknown) (unknown) melatonin 10 mg (units (unknown) date) capsule 10 mg PO unknown) BEDTIME PRN 05/26/21 [History Confirmed (unknown) (no (unknown) (unknown) meloxicam 7.5 mg (units (unknown) date) tablet (Mobic) 15 mg unknown) PO [facility] 05/26/21 [History Confirmed (unknown) (no (unknown) (unknown) metoclopramide (units (unknown) date) [METOCLOPRAMIDE] unknown) Allergy (Unknown, Verified 10/10/22 10:04) (unknown) (no (unknown) (unknown) nortriptyline (units ( unknown) date) [NORTRIPTYLINE] unknown) Allergy (Unknown, Verified 10/10/22 10:04) (unknown) (no (unknown) (unknown) occurred due to the (unit s (unknown) date) inherent limitations unknown) of voice recognition software. Please (unknown) (no (unknown) (unknown) ondansetron 8 mg (units (unknown) date) disintegrating tablet unknown) (Zofran ODT) 8 mg sublingual Q6HP PRN (unknown) (no (unknown) (unknown) oxycodone 10 mg (units (unknown) date) tablet 10 mg PO Q4H unknown) PRN 05/26/21 [History Confirmed 10/10/22] (unknown) (no (unknown) (unknown) prasterone (DHEA) (units (unknown) date) [PRASTERONE (DHEA)] unknown) Allergy (Unknown, Verified 10/10/22 10:04) (unknown) (no (unknown) (unknown) prednisone (units (unk nown) date) [PREDNISONE] Allergy unknown) (Unknown, Verified 10/10/22 10:04) (unknown) (no (unknown) (unknown) pregabalin 100 mg (units (unknown) date) capsule (Lyrica) 200 unknown) mg PO BID 05/26/21 [History Confirmed (unknown) (no (unknown) (unknown) prochlorperazine (units (unknown) date) [From COMPAZINE] unknown) Allergy (Unknown, Verified 10/10/22 10:04) (unknown) (no (unknown) (unknown) promethazine [From (units (unknown) date) PHENERGAN] Allergy unknown) (Unknown, Verified 10/10/22 10:04) (unknown) (no (unknown) (unknown) read the note (units ( unknown) date) carefully and unknown) recognize, using context, where these substitutions (unknown) (no (unknown) (unknown) rimegepant 75 mg (units (unknown) date) disintegrating tablet unknown) (Nurtec ODT) 75 mg PO ONCE PRN 05/26/21 (unknown) (no (unknown) (unknown) rizatriptan (units (un known) date) [RIZATRIPTAN] Allergy unknown) (Unknown, Verified 10/10/22 10:04) (unknown) (no (unknown) (unknown) scatters 'red drops (unit s (unknown) date) all over the place'. unknown) Symptoms seem better with the cough (unknown) (no (unknown) (unknown) software. Although (units (unknown) date) every effort is made unknown) to edit content, oracle etl developer errors (unknown) (no (unknown) (unknown) sumatriptan (units (un known) date) [SUMATRIPTAN] Allergy unknown) (Unknown, Verified 10/10/22 10:04) (unknown) (no (unknown) (unknown) temazepam 30 mg (units (unknown) date) capsule 30 mg PO unknown) BEDTIME PRN 05/26/21 [History Confirmed (unknown) (no (unknown) (unknown) tetracaine (units (unk nown) date) [TETRACAINE] Allergy unknown) (Unknown, Verified 10/10/22 10:04) (unknown) (no (unknown) (unknown) topiramate [From (units (unknown) date) TOPAMAX] Allergy unknown) (Unknown, Verified 10/10/22 10:04) (unknown) (no (unknown) (unknown) unrenarkable. Still (unit s (unknown) date) coughing up blood, unknown) states it is 'black' and sometimes (unknown) (no (unknown) (unknown) valproic acid (units ( unknown) date) [VALPROIC ACID] unknown) Allergy (Unknown, Verified 10/10/22 10:04) (unknown) (no (unknown) (unknown) vancomycin (units (unk nown) date) [VANCOMYCIN] Allergy unknown) (Unknown, Verified 10/10/22 10:04) (unknown) (no (unknown) (unknown) verapamil (units (unkn own) date) [VERAPAMIL] Allergy unknown) (Unknown, Verified 10/10/22 10:04) (unknown) (no (unknown) (unknown) when she first wakes (uni ts (unknown) date) up, midday and in the unknown) evening she feels like she is (unknown) (no (unknown) (unknown) while on the cough (units (unknown) date) syrup, but she is out unknown) and she is not better. She reports that (unknown) (no (unknown) (unknown) zinc sulfate 50 mg (units (unknown) date) zinc (220 mg) tablet unknown) 50 mg PO DAILY 05/26/21 [History Result panel 6 (unknown) (no (unknown) (unknown) (no value) (units (unk nown) date) unknown) (unknown) (no (unknown) (unknown) ##20 10/08/17 [Rx (units (unknown) date) Confirmed 10/10/22] unknown) (unknown) (no (unknown) (unknown) 'drowning on dry (units (unknown) date) land'. She has been unknown) coughing up red/black pieces. (unknown) (no (unknown) (unknown) (1) Hemoptysis: (units (unknown) date) unknown) (unknown) (no (unknown) (unknown) *MARIANNA* 37 Y F, (units (unknown) date) patient here today to unknown) f/u on ED visit. She was doing better (unknown) (no (unknown) (unknown) 10/10/22 (units (unkno wn) date) unknown) (unknown) (no (unknown) (unknown) 10/10/22] (units (unkn own) date) unknown) (unknown) (no (unknown) (unknown) 05/26/21 [History (units (unknown) date) Confirmed 10/10/22] unknown) (unknown) (no (unknown) (unknown) 10:04) (units (unkno wn) date) unknown) (unknown) (no (unknown) (unknown) 10:06 (units (unkno wn) date) unknown) (unknown) (no (unknown) (unknown) Age/Sex: 37 / F Date (uni ts (unknown) date) of Service: unknown) (unknown) (no (unknown) (unknown) Allergies (units (unkn own) date) unknown) (unknown) (no (unknown) (unknown) [place] [id number] (unit s (unknown) date) unknown) (unknown) (no (unknown) (unknown) Anesthesia (units (unk nown) date) unknown) (unknown) (no (unknown) (unknown) Ankle pain (units (unk nown) date) unknown) (unknown) (no (unknown) (unknown) Anxiety (units (unkno wn) date) unknown) (unknown) (no (unknown) (unknown) Assessment + Plan (units (unknown) date) unknown) (unknown) (no (unknown) (unknown) Asthma (units (unkno wn) date) unknown) (unknown) (no (unknown) (unknown) Attending Dr: Lola (unit s (unknown) date) Tammy RACHEL unknown) (unknown) (no (unknown) (unknown) BLISTERS AT SITE (units (unknown) date) unknown) (unknown) (no (unknown) (unknown) BMI 26.0 (units (unkno wn) date) unknown) (unknown) (no (unknown) (unknown) BP 110/68 (units (unkn own) date) unknown) (unknown) (no (unknown) (unknown) Blood Pressure (units (unknown) date) Location Lt brachial unknown) (unknown) (no (unknown) (unknown) CT chest wo con 2 (units (unknown) date) Weeks R04.2 - unknown) Hemoptysis (unknown) (no (unknown) (unknown) Cardiac arrhythmia (units (unknown) date) unknown) (unknown) (no (unknown) (unknown) Cervical cyst (units ( unknown) date) unknown) (unknown) (no (unknown) (unknown) Chicken pox (units (un known) date) unknown) (unknown) (no (unknown) (unknown) Chief Complaint (units (unknown) date) unknown) (unknown) (no (unknown) (unknown) Chief Complaint: ED (unit s (unknown) date) f/u SOB from COVID unknown) (unknown) (no (unknown) (unknown) Confirmed 10/10/22] (unit s (unknown) date) unknown) (unknown) (no (unknown) (unknown) : 1985 (units (unknown) date) Acct:[id number] unknown) (unknown) (no (unknown) (unknown) Depression (units (unk nown) date) unknown) (unknown) (no (unknown) (unknown) Dept at (units (unkno wn) date) . unknown) (unknown) (no (unknown) (unknown) Details: (units (unkno wn) date) unknown) (unknown) (no (unknown) (unknown) Documented By: (units (unknown) date) Lola Munoz unknown) 10/10/22 0958 (unknown) (no (unknown) (unknown) Draft (units (unkno [...] date) Stroke unknown) (unknown) (no (unknown) (unknown) HPI (units (unkno wn) date) unknown) (unknown) (no (unknown) (unknown) Headache (units (unkno wn) date) unknown) (unknown) (no (unknown) (unknown) Health Management (units (unknown) date) reviewed with unknown) patient: No (unknown) (no (unknown) (unknown) Health Management (units (unknown) date) unknown) (unknown) (no (unknown) (unknown) Hearing loss (units (u nknown) date) unknown) (unknown) (no (unknown) (unknown) Height 6 ft (units (un known) date) unknown) (unknown) (no (unknown) (unknown) Hemorrhoid [...] date) unknown) (unknown) (no (unknown) (unknown) Intake (units (unkno wn) date) unknown) (unknown) (no (unknown) (unknown) Interstitial (units (u nknown) date) cystitis unknown) (unknown) (no (unknown) (unknown) Is last menstrual (units (unknown) date) period known: No unknown) (unknown) (no (unknown) (unknown) Kidney stones (units ( unknown) date) unknown) (unknown) (no (unknown) (unknown) Last Menstural Cycle (uni ts (unknown) date) + Details unknown) (unknown) (no (unknown) (unknown) Loc: [facility] (units (unkno wn) date) unknown) (unknown) (no (unknown) (unknown) [id number] (units (unk nown) date) unknown) (unknown) (no (unknown) (unknown) Medical History (units (unknown) date) (Updated 07/07/21 @ unknown) 21:03 by Jovita Pham) (unknown) (no (unknown) (unknown) Medications (units (un known) date) unknown) (unknown) (no (unknown) (unknown) Medications: (units (u nknown) date) unknown) (unknown) (no (unknown) (unknown) Mental health (units ( unknown) date) problem unknown) (unknown) (no (unknown) (unknown) Migraines (units (unkn own) date) unknown) (unknown) (no (unknown) (unknown) Mother (units (unknown) date) Cancer unknown) (unknown) (no (unknown) (unknown) New (units (unkno wn) date) unknown) (unknown) (no (unknown) (unknown) Orders (units (unkno wn) date) unknown) (unknown) (no (unknown) (unknown) Orders: (units (unkno wn) date) unknown) (unknown) (no (unknown) (unknown) Ovarian cyst (units (u nknown) date) unknown) (unknown) (no (unknown) (unknown) Oxygen Delivery (units (unknown) date) Method room air unknown) (unknown) (no (unknown) (unknown) PFSH (units (unkno wn) date) unknown) (unknown) (no (unknown) (unknown) PLASTIC MEDICAL TAPE (uni ts (unknown) date) Allergy (Mild, unknown) Uncoded 10/10/22 10:04) (unknown) (no (unknown) (unknown) PTSD (post-traumatic (uni ts (unknown) date) stress disorder) unknown) (unknown) (no (unknown) (unknown) Painful menstrual (units (unknown) date) periods unknown) (unknown) (no (unknown) (unknown) Patient with history (uni ts (unknown) date) of multiple unknown) occurrences of spontaneous respiratory failure (unknown) (no (unknown) (unknown) Patient: (units (unkno wn) date) Bibi Arreola W unknown) MR#: (unknown) (no (unknown) (unknown) Position Sitting (units (unknown) date) unknown) (unknown) (no (unknown) (unknown) Pulse 92 H (units (unk nown) date) unknown) (unknown) (no (unknown) (unknown) Pulse Oximetry (%) (units (unknown) date) 99 unknown) (unknown) (no (unknown) (unknown) Pulse Source Monitor (uni ts (unknown) date) unknown) (unknown) (no (unknown) (unknown) Reason For Visit (units (unknown) date) unknown) (unknown) (no (unknown) (unknown) Respiration 18 (units (unknown) date) unknown) (unknown) (no (unknown) [...] ischemic attack) unknown) (unknown) (no (unknown) (unknown) Temp 98.2 F (units (un known) date) unknown) (unknown) (no (unknown) (unknown) Temp Source Temporal (uni ts (unknown) date) Artery Scan unknown) (unknown) (no (unknown) (unknown) This note [...] unknown) (unknown) (no (unknown) (unknown) Visit Reasons: (units (unknown) date) *horras pt* unknown) [facility] Follow up (unknown) (no (unknown) (unknown) Vitals (units (unkno wn) date) unknown) (unknown) (no (unknown) (unknown) Weight 192 lb (units ( unknown) date) unknown) (unknown) (no (unknown) (unknown) [History Confirmed (units (unknown) date) 10/10/22] unknown) (unknown) (no (unknown) (unknown) acetaminophen (units ( unknown) date) [ACETAMINOPHEN] unknown) Allergy (Unknown, Verified 10/10/22 10:04) (unknown) (no (unknown) (unknown) adhesive [ADHESIVE] (unit s (unknown) date) Allergy (Unknown, unknown) Verified 10/10/22 10:04) (unknown) (no (unknown) (unknown) albuterol sulfate 90 (uni ts (unknown) date) mcg/actuation 2 puffs unknown) inhalation Q6H PRN 8.5 grams 0RF (unknown) (no (unknown) (unknown) albuterol sulfate 90 (uni ts (unknown) date) mcg/actuation aerosol unknown) inhaler 2 puff inhalation Q6H PRN (unknown) (no (unknown) (unknown) amitriptyline (units ( unknown) date) [AMITRIPTYLINE] unknown) Allergy (Unknown, Verified 10/10/22 10:04) (unknown) (no (unknown) (unknown) aspirin [ASPIRIN] (units (unknown) date) Allergy (Unknown, unknown) Verified 10/10/22 10:04) (unknown) (no (unknown) (unknown) benzocaine (units (unk nown) date) [BENZOCAINE] Allergy unknown) (Unknown, Verified 10/10/22 10:04) (unknown) (no (unknown) (unknown) benzonatate 100 mg (units (unknown) date) PO BID-TID PRN 30 unknown) caps 0RF cough (unknown) (no (unknown) (unknown) benzonatate 100 mg (units (unknown) date) capsule 100 mg PO unknown) BID-TID PRN cough #30 caps 10/10/22 [Rx (unknown) (no (unknown) (unknown) biotin 1 mg capsule (unit s (unknown) date) 1 mg PO DAILY unknown) 05/26/21 [History Confirmed 10/10/22] (unknown) (no (unknown) (unknown) butamben [From (units (unknown) date) CETACAINE] Allergy unknown) (Unknown, Verified 10/10/22 10:04) (unknown) (no (unknown) (unknown) cholecalciferol (units (unknown) date) (vitamin D3) 250 mcg unknown) (10,000 unit) capsule 250 mcg PO DAILY (unknown) (no (unknown) (unknown) clonazepam 1 mg (units (unknown) date) tablet 1 - 2 mg PO unknown) BID 05/26/21 [History Confirmed 10/10/22] (unknown) (no (unknown) (unknown) codeine 10 (units (unk nown) date) mg-guaifenesin 100 unknown) mg/5 mL oral liquid 10 ml PO Q4-6H PRN cough #120 (unknown) (no (unknown) (unknown) codeine-guaifenesin (unit s (unknown) date) 10-100 mg/5 mL unknown) (unknown) (no (unknown) (unknown) comes in for ED f/u (unit s (unknown) date) ongoing hemoptysis unknown) after having COVID 09/20/2022. X-Ray (unknown) (no (unknown) (unknown) cough (units (unkno wn) date) unknown) (unknown) (no (unknown) (unknown) dexamethasone (units ( unknown) date) [DEXAMETHASONE] unknown) Allergy (Unknown, Verified 10/10/22 10:04) (unknown) (no (unknown) (unknown) dextroamphetamine-am (uni ts (unknown) date) phetamine 10 mg unknown) tablet (Adderall) 20 mg PO BID #0 tabs (unknown) (no (unknown) (unknown) dicloxacillin (units ( unknown) date) [DICLOXACILLIN] unknown) Allergy (Unknown, Verified 10/10/22 10:04) (unknown) (no (unknown) (unknown) dihydroergocristine (unit s (unknown) date) [DIHYDROERGOCRISTINE] unknown) Allergy (Unknown, Verified 10/10/22 (unknown) (no (unknown) (unknown) dihydroergotamine (units (unknown) date) [DIHYDROERGOTAMINE] unknown) Allergy (Unknown, Verified 10/10/22 10:04) (unknown) (no (unknown) (unknown) diphenhydramine (units (unknown) date) [DIPHENHYDRAMINE] unknown) Allergy (Unknown, Verified 10/10/22 10:04) (unknown) (no (unknown) (unknown) do not take with (units (unknown) date) other sedating unknown) medications 10 mL PO Q4-6H PRN 120 mL 0RF (unknown) (no (unknown) (unknown) epinephrine 0.3 (units (unknown) date) mg/0.3 mL injection, unknown) auto-injector 0.3 mg IM ONCE 05/26/21 (unknown) (no (unknown) (unknown) frovatriptan (units (u nknown) date) [FROVATRIPTAN] unknown) Allergy (Unknown, Verified 10/10/22 10:04) (unknown) (no (unknown) (unknown) have occurred. If (units (unknown) date) there are any unknown) questions, please contact the Medical Records (unknown) (no (unknown) (unknown) hydroxyzine (units (un known) date) [HYDROXYZINE] Allergy unknown) (Unknown, Verified 10/10/22 10:04) (unknown) (no (unknown) (unknown) ibuprofen (units (unkn own) date) [IBUPROFEN] Allergy unknown) (Unknown, Verified 10/10/22 10:04) (unknown) (no (unknown) (unknown) latex [LATEX] (units ( unknown) date) Allergy (Unknown, unknown) Verified 10/10/22 10:04) (unknown) (no (unknown) (unknown) mL 10/10/22 [Rx (units (unknown) date) Confirmed 10/10/22] unknown) (unknown) (no (unknown) (unknown) magnesium glycinate (unit s (unknown) date) 100 mg tablet 100 mg unknown) PO DAILY 05/26/21 [History Confirmed (unknown) (no (unknown) (unknown) may occur. (units (unk nown) date) Occasional wrong-word unknown) or 'sound-alike' substitutions may have (unknown) (no (unknown) (unknown) medicine with (units ( unknown) date) codeine and tessalon unknown) perrles. Agrees to have chest CT scan. (unknown) (no (unknown) (unknown) melatonin 10 mg (units (unknown) date) capsule 10 mg PO unknown) BEDTIME PRN 05/26/21 [History Confirmed (unknown) (no (unknown) (unknown) meloxicam 7.5 mg (units (unknown) date) tablet (Mobic) 15 mg unknown) PO [facility] 05/26/21 [History Confirmed (unknown) (no (unknown) (unknown) metoclopramide (units (unknown) date) [METOCLOPRAMIDE] unknown) Allergy (Unknown, Verified 10/10/22 10:04) (unknown) (no (unknown) (unknown) nortriptyline (units ( unknown) date) [NORTRIPTYLINE] unknown) Allergy (Unknown, Verified 10/10/22 10:04) (unknown) (no (unknown) (unknown) occurred due to the (unit s (unknown) date) inherent limitations unknown) of voice recognition software. Please (unknown) (no (unknown) (unknown) ondansetron 8 mg (units (unknown) date) disintegrating tablet unknown) (Zofran ODT) 8 mg sublingual Q6HP PRN (unknown) (no (unknown) (unknown) oxycodone 10 mg (units (unknown) date) tablet 10 mg PO Q4H unknown) PRN 05/26/21 [History Confirmed 10/10/22] (unknown) (no (unknown) (unknown) prasterone (DHEA) (units (unknown) date) [PRASTERONE (DHEA)] unknown) Allergy (Unknown, Verified 10/10/22 10:04) (unknown) (no (unknown) (unknown) prednisone (units (unk nown) date) [PREDNISONE] Allergy unknown) (Unknown, Verified 10/10/22 10:04) (unknown) (no (unknown) (unknown) pregabalin 100 mg (units (unknown) date) capsule (Lyrica) 200 unknown) mg PO BID 05/26/21 [History Confirmed (unknown) (no (unknown) (unknown) prochlorperazine (units (unknown) date) [From COMPAZINE] unknown) Allergy (Unknown, Verified 10/10/22 10:04) (unknown) (no (unknown) (unknown) promethazine [From (units (unknown) date) PHENERGAN] Allergy unknown) (Unknown, Verified 10/10/22 10:04) (unknown) (no (unknown) (unknown) read the note (units ( unknown) date) carefully and unknown) recognize, using context, where these substitutions (unknown) (no (unknown) (unknown) rimegepant 75 mg (units (unknown) date) disintegrating tablet unknown) (Nurtec ODT) 75 mg PO ONCE PRN 05/26/21 (unknown) (no (unknown) (unknown) rizatriptan (units (un known) date) [RIZATRIPTAN] Allergy unknown) (Unknown, Verified 10/10/22 10:04) (unknown) (no (unknown) (unknown) scatters 'red drops (unit s (unknown) date) all over the place'. unknown) Symptoms seem better with the cough (unknown) (no (unknown) (unknown) shortness of breath (unit s (unknown) date) or wheezing #8.5 unknown) grams 10/10/22 [Rx Confirmed 10/10/22] (unknown) (no (unknown) (unknown) shortness of breath (unit s (unknown) date) or wheezing unknown) (unknown) (no (unknown) (unknown) software. Although (units (unknown) date) every effort is made unknown) to edit content, oracle etl developer errors (unknown) (no (unknown) (unknown) sumatriptan (units (un known) date) [SUMATRIPTAN] Allergy unknown) (Unknown, Verified 10/10/22 10:04) (unknown) (no (unknown) (unknown) temazepam 30 mg (units (unknown) date) capsule 30 mg PO unknown) BEDTIME PRN 05/26/21 [History Confirmed (unknown) (no (unknown) (unknown) tetracaine (units (unk nown) date) [TETRACAINE] Allergy unknown) (Unknown, Verified 10/10/22 10:04) (unknown) (no (unknown) (unknown) topiramate [From (units (unknown) date) TOPAMAX] Allergy unknown) (Unknown, Verified 10/10/22 10:04) (unknown) (no (unknown) (unknown) unrenarkable. Still (unit s (unknown) date) coughing up blood, unknown) states it is 'black' and sometimes (unknown) (no (unknown) (unknown) valproic acid (units ( unknown) date) [VALPROIC ACID] unknown) Allergy (Unknown, Verified 10/10/22 10:04) (unknown) (no (unknown) (unknown) vancomycin (units (unk nown) date) [VANCOMYCIN] Allergy unknown) (Unknown, Verified 10/10/22 10:04) (unknown) (no (unknown) (unknown) verapamil (units (unkn own) date) [VERAPAMIL] Allergy unknown) (Unknown, Verified 10/10/22 10:04) (unknown) (no (unknown) (unknown) when she first wakes (uni ts (unknown) date) up, midday and in the unknown) evening she feels like she is (unknown) (no (unknown) (unknown) while on the cough (units (unknown) date) syrup, but she is out unknown) and she is not better. She reports that (unknown) (no (unknown) (unknown) zinc sulfate 50 mg (units (unknown) date) zinc (220 mg) tablet unknown) 50 mg PO DAILY 05/26/21 [History Result panel 7 (unknown) (no (unknown) (unknown) (no value) (units (unk nown) date) unknown) (unknown) (no (unknown) (unknown) ##20 10/08/17 [Rx (units (unknown) date) Confirmed 10/10/22] unknown) (unknown) (no (unknown) (unknown) 'drowning on dry (units (unknown) date) land'. She has been unknown) coughing up red/black pieces. (unknown) (no (unknown) (unknown) (1) Hemoptysis: (units (unknown) date) unknown) (unknown) (no (unknown) (unknown) *MARIANNA* 37 Y F, (units (unknown) date) patient here today to unknown) f/u on ED visit. She was doing better (unknown) (no (unknown) (unknown) 10/10/22 1751 (units ( unknown) date) unknown) (unknown) (no (unknown) (unknown) 10/10/22 (units (unkno wn) date) unknown) (unknown) (no (unknown) (unknown) 10/10/22] (units (unkn own) date) unknown) (unknown) (no (unknown) (unknown) 05/26/21 [History (units (unknown) date) Confirmed 10/10/22] unknown) (unknown) (no (unknown) (unknown) 10:04) (units (unkno wn) date) unknown) (unknown) (no (unknown) (unknown) 10:06 (units (unkno wn) date) unknown) (unknown) (no (unknown) (unknown) Affect: normal (units (unknown) date) affect unknown) (unknown) (no (unknown) (unknown) Age/Sex: 37 / F Date (uni ts (unknown) date) of Service: unknown) (unknown) (no (unknown) (unknown) Allergies (units (unkn own) date) unknown) (unknown) (no (unknown) (unknown) [place], [place] [id number] (unit s (unknown) date) unknown) (unknown) (no (unknown) (unknown) Anesthesia (units (unk nown) date) unknown) (unknown) (no (unknown) (unknown) Ankle pain (units (unk nown) date) unknown) (unknown) (no (unknown) (unknown) Anxiety (units (unkno wn) date) unknown) (unknown) (no (unknown) (unknown) Assessment + Plan (units (unknown) date) unknown) (unknown) (no (unknown) (unknown) Assessment and Plan: (uni ts (unknown) date) unknown) (unknown) (no (unknown) (unknown) Asthma (units (unkno wn) date) unknown) (unknown) (no (unknown) (unknown) Attending Dr: Lola (unit s (unknown) date) Tammy DUVALP unknown) (unknown) (no (unknown) (unknown) Attitude: (units (unkn own) date) cooperative unknown) (unknown) (no (unknown) (unknown) Auscultation: clear (unit s (unknown) date) to auscultation unknown) bilaterally (unknown) (no (unknown) (unknown) BLISTERS AT SITE (units (unknown) date) unknown) (unknown) (no (unknown) (unknown) BMI 26.0 (units (unkno wn) date) unknown) (unknown) (no (unknown) (unknown) BP 110/68 (units (unkn own) date) unknown) (unknown) (no (unknown) (unknown) Blood Pressure (units (unknown) date) Location Lt brachial unknown) (unknown) (no (unknown) (unknown) CT chest wo con 2 (units (unknown) date) Weeks R04.2 - unknown) Hemoptysis (unknown) (no (unknown) (unknown) CT scan. Denies any (unit s (unknown) date) SOB or difficulty unknown) breathing. Denies fever, chills, n/v/d. (unknown) (no (unknown) (unknown) Cardiac arrhythmia (units (unknown) date) unknown) (unknown) (no (unknown) (unknown) Cardio (units (unkno wn) date) unknown) (unknown) (no (unknown) (unknown) Cervical cyst (units ( unknown) date) unknown) (unknown) (no (unknown) (unknown) Chicken pox (units (un known) date) unknown) (unknown) (no (unknown) (unknown) Chief Complaint (units (unknown) date) unknown) (unknown) (no (unknown) (unknown) Chief Complaint: ED (unit s (unknown) date) f/u SOB from COVID unknown) (unknown) (no (unknown) (unknown) Cognition: normal (units (unknown) date) cognition unknown) (unknown) (no (unknown) (unknown) Confirmed 10/10/22] (unit s (unknown) date) unknown) (unknown) (no (unknown) (unknown) Const (units (unkno wn) date) unknown) (unknown) (no (unknown) (unknown) : 1985 (units (unknown) date) Acct:[id number] unknown) (unknown) (no (unknown) (unknown) Depression (units (unk nown) date) unknown) (unknown) (no (unknown) (unknown) Details: (units (unkno wn) date) unknown) (unknown) (no (unknown) (unknown) Documented By: (units (unknown) date) oLla Munoz unknown) 10/10/22 0958 (unknown) (no (unknown) (unknown) Effort + Inspection: (uni ts (unknown) date) normal respiratory unknown) effort, able to speak in complete (unknown) (no (unknown) (unknown) Endometriosis (units ( unknown) date) unknown) (unknown) (no (unknown) (unknown) Exam (units (unkno wn) date) unknown) (unknown) (no (unknown) (unknown) Family [...] unknown) date) unknown) (unknown) (no (unknown) (unknown) General: (units (unkno wn) date) cooperative, unknown) comfortable and no acute distress (unknown) (no (unknown) (unknown) General: patient (units (unknown) date) alert and gait normal unknown) (unknown) (no (unknown) (unknown) Grandfather (uni ts (unknown) date) Stroke unknown) (unknown) (no (unknown) (unknown) Grandmother Breast (units (unknown) date) cancer unknown) (unknown) (no (unknown) (unknown) Grandmother (uni ts (unknown) date) Stroke unknown) (unknown) (no (unknown) (unknown) HPI (units (unkno wn) date) unknown) (unknown) (no (unknown) (unknown) Headache (units (unkno wn) date) unknown) (unknown) (no (unknown) (unknown) Health Management (units (unknown) date) reviewed with unknown) patient: No (unknown) (no (unknown) (unknown) Health Management (units (unknown) date) unknown) (unknown) (no (unknown) (unknown) Hearing loss (units (u nknown) date) unknown) (unknown) (no (unknown) (unknown) Heart Sounds: S1 (units (unknown) date) normal, S2 normal and unknown) no murmurs (unknown) (no (unknown) (unknown) Height 6 ft (units (un known) date) unknown) (unknown) (no (unknown) (unknown) Hemorrhoid (units (unk nown) date) unknown) (unknown) (no (unknown) (unknown) Her PCP is (units (unknown) date) Marianna unknown) (unknown) (no (unknown) (unknown) History of [...] date) unknown) (unknown) (no (unknown) (unknown) Intake (units (unkno wn) date) unknown) (unknown) (no (unknown) (unknown) Interstitial (units (u nknown) date) cystitis unknown) (unknown) (no (unknown) (unknown) Is last menstrual (units (unknown) date) period known: No unknown) (unknown) (no (unknown) (unknown) Kidney stones (units ( unknown) date) unknown) (unknown) (no (unknown) (unknown) Last Menstural Cycle (uni ts (unknown) date) + Details unknown) (unknown) (no (unknown) (unknown) Loc: [facility] (units (unkno wn) date) unknown) (unknown) (no (unknown) (unknown) [id number] (units (unk nown) date) unknown) (unknown) (no (unknown) (unknown) Medical History (units (unknown) date) (Updated 07/07/21 @ unknown) 21:03 by Jovita Pham) (unknown) (no (unknown) (unknown) Medications (units (un known) date) unknown) (unknown) (no (unknown) (unknown) Medications: (units (u nknown) date) unknown) (unknown) (no (unknown) (unknown) Mental health (units ( unknown) date) problem unknown) (unknown) (no (unknown) (unknown) Migraines (units (unkn own) date) unknown) (unknown) (no (unknown) (unknown) Mother (units (unknown) date) Cancer unknown) (unknown) (no (unknown) (unknown) Neuro (units (unkno wn) date) unknown) (unknown) (no (unknown) (unknown) New (units (unkno wn) date) unknown) (unknown) (no (unknown) (unknown) Ongoing hemoptysis (units (unknown) date) after having COVID unknown) 09/20/2022. She states symptoms are (unknown) (no (unknown) (unknown) Orders (units (unkno wn) date) unknown) (unknown) (no (unknown) (unknown) Orders: (units (unkno wn) date) unknown) (unknown) (no (unknown) (unknown) Ovarian cyst (units (u nknown) date) unknown) (unknown) (no (unknown) (unknown) Oxygen Delivery (units (unknown) date) Method room air unknown) (unknown) (no (unknown) (unknown) PFSH (units (unkno wn) date) unknown) (unknown) (no (unknown) (unknown) PLASTIC MEDICAL TAPE (uni ts (unknown) date) Allergy (Mild, unknown) Uncoded 10/10/22 10:04) (unknown) (no (unknown) (unknown) PTSD (post-traumatic (uni ts (unknown) date) stress disorder) unknown) (unknown) (no (unknown) (unknown) Painful menstrual (units (unknown) date) periods unknown) (unknown) (no (unknown) (unknown) Patient with history (uni ts (unknown) date) of multiple unknown) occurrences of spontaneous respiratory failure (unknown) (no (unknown) (unknown) Patient: (units (unkno wn) date) Bibi Arreola W unknown) MR#: (unknown) (no (unknown) (unknown) Position Sitting (units (unknown) date) unknown) (unknown) (no (unknown) (unknown) Psych (units (unkno wn) date) unknown) (unknown) (no (unknown) (unknown) Pulse 92 H (units (unk nown) date) unknown) (unknown) (no (unknown) (unknown) Pulse Oximetry (%) (units (unknown) date) 99 unknown) (unknown) (no (unknown) (unknown) Pulse Source Monitor (uni ts (unknown) date) unknown) (unknown) (no (unknown) (unknown) ROS (units (unkno wn) date) unknown) (unknown) (no (unknown) (unknown) Rate: regular rate (units (unknown) date) unknown) (unknown) (no (unknown) (unknown) Reason For Visit (units (unknown) date) unknown) (unknown) (no (unknown) (unknown) Reports as per HPI (units (unknown) date) unknown) (unknown) (no (unknown) (unknown) Resp (units (unkno wn) date) unknown) (unknown) (no (unknown) (unknown) Respiration 18 (units (unknown) date) unknown) (unknown) (no (unknown) (unknown) Rhythm: regular (units (unknown) date) rhythm unknown) (unknown) (no (unknown) (unknown) Ruptured tympanic (units (unknown) date) membrane unknown) (unknown) (no (unknown) (unknown) She already has (units (unknown) date) appointment with Dr. celi Lucas on 10/20/2022 (unknown) (no (unknown) (unknown) Shoulder pain (units ( unknown) date) (-2019) unknown) (unknown) (no (unknown) (unknown) Signed By: (units (unk nown) date) <Electronically unknown) signed by Lola Munoz> (unknown) (no (unknown) (unknown) Signed (units (unkno wn) date) unknown) (unknown) (no (unknown) (unknown) Smoking Status: (units (unknown) date) Former smoker unknown) (unknown) (no (unknown) (unknown) Speech: speech (units (unknown) date) normal unknown) (unknown) (no (unknown) (unknown) Stroke (units (unkno wn) date) unknown) (unknown) (no (unknown) (unknown) Surgical History (units (unknown) date) (Updated 07/07/21 @ unknown) 21:03 by Jovita Pham) (unknown) (no (unknown) (unknown) TIA (transient (units (unknown) date) ischemic attack) unknown) (unknown) (no (unknown) (unknown) Temp 98.2 F (units (un known) date) unknown) (unknown) (no (unknown) (unknown) Temp Source Temporal (uni ts (unknown) date) Artery Scan unknown) (unknown) (no (unknown) (unknown) This note may have (units (unknown) date) been all or partially unknown) generated using voice recognition (unknown) (no (unknown) (unknown) Thought Content: (units (unknown) date) normal unknown) (unknown) (no (unknown) (unknown) Tinnitus (units (unkno wn) date) unknown) (unknown) (no (unknown) (unknown) Tobacco + Substance (unit s (unknown) date) Use unknown) (unknown) (no (unknown) (unknown) Tobacco Status (units (unknown) date) unknown) (unknown) (no (unknown) (unknown) Vertigo (units (unkno wn) date) unknown) (unknown) (no (unknown) (unknown) Visit Reasons: (units (unknown) date) *[facility]* unknown) [facility] Follow up (unknown) (no (unknown) (unknown) Vitals (units (unkno wn) date) unknown) (unknown) (no (unknown) (unknown) Weight 192 lb (units ( unknown) date) unknown) (unknown) (no (unknown) (unknown) [History Confirmed (units (unknown) date) 10/10/22] unknown) (unknown) (no (unknown) (unknown) acetaminophen (units ( unknown) date) [ACETAMINOPHEN] unknown) Allergy (Unknown, Verified 10/10/22 10:04) (unknown) (no (unknown) (unknown) adhesive [ADHESIVE] (unit s (unknown) date) Allergy (Unknown, unknown) Verified 10/10/22 10:04) (unknown) (no (unknown) (unknown) albuterol sulfate 90 (uni ts (unknown) date) mcg/actuation 2 puffs unknown) inhalation Q6H PRN 8.5 grams 0RF (unknown) (no (unknown) (unknown) albuterol sulfate 90 (uni ts (unknown) date) mcg/actuation aerosol unknown) inhaler 2 puff inhalation Q6H PRN (unknown) (no (unknown) (unknown) amitriptyline (units ( unknown) date) [AMITRIPTYLINE] unknown) Allergy (Unknown, Verified 10/10/22 10:04) (unknown) (no (unknown) (unknown) aspirin [ASPIRIN] (units (unknown) date) Allergy (Unknown, unknown) Verified 10/10/22 10:04) (unknown) (no (unknown) (unknown) at . (units (unknown) date) unknown) (unknown) (no (unknown) (unknown) benzocaine (units (unk nown) date) [BENZOCAINE] Allergy unknown) (Unknown, Verified 10/10/22 10:04) (unknown) (no (unknown) (unknown) benzonatate 100 mg (units (unknown) date) PO BID-TID PRN 30 unknown) caps 0RF cough (unknown) (no (unknown) (unknown) benzonatate 100 mg (units (unknown) date) capsule 100 mg PO unknown) BID-TID PRN cough #30 caps 10/10/22 [Rx (unknown) (no (unknown) (unknown) biotin 1 mg capsule (unit s (unknown) date) 1 mg PO DAILY unknown) 05/26/21 [History Confirmed 10/10/22] (unknown) (no (unknown) (unknown) butamben [From (units (unknown) date) CETACAINE] Allergy unknown) (Unknown, Verified 10/10/22 10:04) (unknown) (no (unknown) (unknown) cholecalciferol (units (unknown) date) (vitamin D3) 250 mcg unknown) (10,000 unit) capsule 250 mcg PO DAILY (unknown) (no (unknown) (unknown) clonazepam 1 mg (units (unknown) date) tablet 1 - 2 mg PO unknown) BID 05/26/21 [History Confirmed 10/10/22] (unknown) (no (unknown) (unknown) codeine 10 (units (unk nown) date) mg-guaifenesin 100 unknown) mg/5 mL oral liquid 10 ml PO Q4-6H PRN cough #120 (unknown) (no (unknown) (unknown) codeine-guaifenesin (unit s (unknown) date) 10-100 mg/5 mL unknown) (unknown) (no (unknown) (unknown) comes in for ED f/u (unit s (unknown) date) ongoing hemoptysis unknown) after having COVID 09/20/2022. X-Ray (unknown) (no (unknown) (unknown) cough (units (unkno wn) date) unknown) (unknown) (no (unknown) (unknown) dexamethasone (units ( unknown) date) [DEXAMETHASONE] unknown) Allergy (Unknown, Verified 10/10/22 10:04) (unknown) (no (unknown) (unknown) dextroamphetamine-am (uni ts (unknown) date) phetamine 10 mg unknown) tablet (Adderall) 20 mg PO BID #0 tabs (unknown) (no (unknown) (unknown) dicloxacillin (units ( unknown) date) [DICLOXACILLIN] unknown) Allergy (Unknown, Verified 10/10/22 10:04) (unknown) (no (unknown) (unknown) dihydroergocristine (unit s (unknown) date) [DIHYDROERGOCRISTINE] unknown) Allergy (Unknown, Verified 10/10/22 (unknown) (no (unknown) (unknown) dihydroergotamine (units (unknown) date) [DIHYDROERGOTAMINE] unknown) Allergy (Unknown, Verified 10/10/22 10:04) (unknown) (no (unknown) (unknown) diphenhydramine (units (unknown) date) [DIPHENHYDRAMINE] unknown) Allergy (Unknown, Verified 10/10/22 10:04) (unknown) (no (unknown) (unknown) do not take with (units (unknown) date) other sedating unknown) medications 10 mL PO Q4-6H PRN 120 mL 0RF (unknown) (no (unknown) (unknown) due to the inherent (unit s (unknown) date) limitations of voice unknown) recognition software. Please read the (unknown) (no (unknown) (unknown) epinephrine 0.3 (units (unknown) date) mg/0.3 mL injection, unknown) auto-injector 0.3 mg IM ONCE 05/26/21 (unknown) (no (unknown) (unknown) frovatriptan (units (u nknown) date) [FROVATRIPTAN] unknown) Allergy (Unknown, Verified 10/10/22 10:04) (unknown) (no (unknown) (unknown) further concerns. (units (unknown) date) unknown) (unknown) (no (unknown) (unknown) hydroxyzine (units (un known) date) [HYDROXYZINE] Allergy unknown) (Unknown, Verified 10/10/22 10:04) (unknown) (no (unknown) (unknown) ibuprofen (units (unkn own) date) [IBUPROFEN] Allergy unknown) (Unknown, Verified 10/10/22 10:04) (unknown) (no (unknown) (unknown) latex [LATEX] (units ( unknown) date) Allergy (Unknown, unknown) Verified 10/10/22 10:04) (unknown) (no (unknown) (unknown) mL 10/10/22 [Rx (units (unknown) date) Confirmed 10/10/22] unknown) (unknown) (no (unknown) (unknown) magnesium glycinate (unit s (unknown) date) 100 mg tablet 100 mg unknown) PO DAILY 05/26/21 [History Confirmed (unknown) (no (unknown) (unknown) melatonin 10 mg (units (unknown) date) capsule 10 mg PO unknown) BEDTIME PRN 05/26/21 [History Confirmed (unknown) (no (unknown) (unknown) meloxicam 7.5 mg (units (unknown) date) tablet (Mobic) 15 mg unknown) PO [facility] 05/26/21 [History Confirmed (unknown) (no (unknown) (unknown) metoclopramide (units (unknown) date) [METOCLOPRAMIDE] unknown) Allergy (Unknown, Verified 10/10/22 10:04) (unknown) (no (unknown) (unknown) nortriptyline (units ( unknown) date) [NORTRIPTYLINE] unknown) Allergy (Unknown, Verified 10/10/22 10:04) (unknown) (no (unknown) (unknown) note carefully and (units (unknown) date) recognize, using unknown) context, where these substitutions have (unknown) (no (unknown) (unknown) occurred. If there (units (unknown) date) are any questions, unknown) please contact the Medical Records Dept (unknown) (no (unknown) (unknown) ondansetron 8 mg (units (unknown) date) disintegrating tablet unknown) (Zofran ODT) 8 mg sublingual Q6HP PRN (unknown) (no (unknown) (unknown) oxycodone 10 mg (units (unknown) date) tablet 10 mg PO Q4H unknown) PRN 05/26/21 [History Confirmed 10/10/22] (unknown) (no (unknown) (unknown) prasterone (DHEA) (units (unknown) date) [PRASTERONE (DHEA)] unknown) Allergy (Unknown, Verified 10/10/22 10:04) (unknown) (no (unknown) (unknown) prednisone (units (unk nown) date) [PREDNISONE] Allergy unknown) (Unknown, Verified 10/10/22 10:04) (unknown) (no (unknown) (unknown) pregabalin 100 mg (units (unknown) date) capsule (Lyrica) 200 unknown) mg PO BID 05/26/21 [History Confirmed (unknown) (no (unknown) (unknown) prochlorperazine (units (unknown) date) [From COMPAZINE] unknown) Allergy (Unknown, Verified 10/10/22 10:04) (unknown) (no (unknown) (unknown) promethazine [From (units (unknown) date) PHENERGAN] Allergy unknown) (Unknown, Verified 10/10/22 10:04) (unknown) (no (unknown) (unknown) provided. X-ray was (unit s (unknown) date) unremarkable. She unknown) agrees to have CT scan, ordered. Urged (unknown) (no (unknown) (unknown) rimegepant 75 mg (units (unknown) date) disintegrating tablet unknown) (Nurtec ODT) 75 mg PO ONCE PRN 05/26/21 (unknown) (no (unknown) (unknown) rizatriptan (units (un known) date) [RIZATRIPTAN] Allergy unknown) (Unknown, Verified 10/10/22 10:04) (unknown) (no (unknown) (unknown) scatters 'red drops (unit s (unknown) date) all over the place'. unknown) Symptoms seem better 'a lot better' (unknown) (no (unknown) (unknown) sentences and no use (uni ts (unknown) date) of accessory muscles unknown) (unknown) (no (unknown) (unknown) shortness of breath (unit s (unknown) date) or wheezing #8.5 unknown) grams 10/10/22 [Rx Confirmed 10/10/22] (unknown) (no (unknown) (unknown) shortness of breath (unit s (unknown) date) or wheezing unknown) (unknown) (no (unknown) (unknown) significantly (units ( unknown) date) improved with codeine unknown) cough medicine and Tessalon Perles. Refill (unknown) (no (unknown) (unknown) software. Although (units (unknown) date) every effort is made unknown) to edit content, oracle etl developer errors ma (unknown) (no (unknown) (unknown) sumatriptan (units (un known) date) [SUMATRIPTAN] Allergy unknown) (Unknown, Verified 10/10/22 10:04) (unknown) (no (unknown) (unknown) temazepam 30 mg (units (unknown) date) capsule 30 mg PO unknown) BEDTIME PRN 05/26/21 [History Confirmed (unknown) (no (unknown) (unknown) tetracaine (units (unk nown) date) [TETRACAINE] Allergy unknown) (Unknown, Verified 10/10/22 10:04) (unknown) (no (unknown) (unknown) to go to the (units (u nknown) date) emergency department unknown) if symptoms change, worsen or she has any (unknown) (no (unknown) (unknown) topiramate [From (units (unknown) date) TOPAMAX] Allergy unknown) (Unknown, Verified 10/10/22 10:04) (unknown) (no (unknown) (unknown) unrenarkable. Still (unit s (unknown) date) coughing up blood, unknown) states it is 'black' and sometimes (unknown) (no (unknown) (unknown) valproic acid (units ( unknown) date) [VALPROIC ACID] unknown) Allergy (Unknown, Verified 10/10/22 10:04) (unknown) (no (unknown) (unknown) vancomycin (units (unk nown) date) [VANCOMYCIN] Allergy unknown) (Unknown, Verified 10/10/22 10:04) (unknown) (no (unknown) (unknown) verapamil (units (unkn own) date) [VERAPAMIL] Allergy unknown) (Unknown, Verified 10/10/22 10:04) (unknown) (no (unknown) (unknown) when she first wakes (uni ts (unknown) date) up, midday and in the unknown) evening she feels like she is (unknown) (no (unknown) (unknown) while on the cough (units (unknown) date) syrup, but she is out unknown) and she is not better. She reports that (unknown) (no (unknown) (unknown) with the cough (units (unknown) date) medicine with codeine unknown) and tessalon perrles. Agrees to have chest (unknown) (no (unknown) (unknown) y occur. Occasional (unit s (unknown) date) wrong-word or unknown) 'sound-alike' substitutions may have occurred (unknown) (no (unknown) (unknown) zinc sulfate 50 mg (units (unknown) date) zinc (220 mg) tablet unknown) 50 mg PO DAILY 05/26/21 [History Result panel 8 (unknown) (no (unknown) (unknown) (no value) (units (unk nown) date) unknown) (unknown) (no (unknown) (unknown) 10/12/22 (units (unkno wn) date) unknown) (unknown) (no (unknown) (unknown) [address] [place] [address] (units (unknown) date) unknown) (unknown) (no (unknown) (unknown) : [id number] (units (u nknown) date) unknown) (unknown) (no (unknown) (unknown) Abdomen: (units (unkno wn) date) Visualized upper unknown) abdominal solid organs and bowel loops appear normal (unknown) (no (unknown) (unknown) Accession Number: (units (unknown) date) [id number] unknown) (unknown) (no (unknown) (unknown) Age/Sex: 37 / F (units (unknown) date) Date of Service: unknown) (unknown) (no (unknown) (unknown) [place], [place] (units ( unknown) date) [id number] unknown) (unknown) (no (unknown) (unknown) Approved by: (units (u nknown) date) ama Christine) [email or web address] on 10/12/2022 at 8:52 (unknown) (no (unknown) (unknown) Bones and chest (units (unknown) date) wall: No unknown) suspicious bony lesions. No vertebral body (unknown) (no (unknown) (unknown) COMPARISON: None. (units (unknown) date) unknown) (unknown) (no (unknown) (unknown) CT Scan Report (units (unknown) date) unknown) (unknown) (no (unknown) (unknown) Central and (units (un known) date) peripheral airways unknown) are patent and normal in caliber. (unknown) (no (unknown) (unknown) : 1985 (units (unknown) date) Acct:[id number] unknown) (unknown) (no (unknown) (unknown) Dictated by: (units (u nknown) date) Christiano Tom, ama) Do on 10/12/2022 at 8:50 (unknown) (no (unknown) (unknown) Esophagus is (units (u nknown) date) normal in caliber. unknown) No hiatal hernia. (unknown) (no (unknown) (unknown) FINDINGS: (units (unkn own) date) unknown) (unknown) (no (unknown) (unknown) IMPRESSION: No (units (unknown) date) evidence acute unknown) pulmonary process. (unknown) (no (unknown) (unknown) INDICATIONS: (units (u nknown) date) hemoptysis unknown) (unknown) (no (unknown) (unknown) Image quality: (units (unknown) date) Excellent. unknown) (unknown) (no (unknown) (unknown) [facility] (units (unknown) date) unknown) (unknown) (no (unknown) (unknown) Loc: CT (units (unkno wn) date) unknown) (unknown) (no (unknown) (unknown) Lungs and pleura: (units (unknown) date) No acute air space unknown) opacities. No pleural effusions or (unknown) (no (unknown) (unknown) MIP reformats (units ( unknown) date) were then unknown) acquired. For radiation dose reduction, the following (unknown) (no (unknown) (unknown) Mediastinum: (units (u nknown) date) Heart size is unknown) normal. No pericardial effusion. No mediastinal (unknown) (no (unknown) (unknown) Noncontrast 5 mm (units (unknown) date) thick sections unknown) acquired from the pulmonary apices to the (unknown) (no (unknown) (unknown) Ordering (units (unkno wn) date) Provider: unknown) Lola Munoz (unknown) (no (unknown) (unknown) PROCEDURE: CT (units ( unknown) date) CHEST WO CON unknown) (unknown) (no (unknown) (unknown) Patient: (units (unkno wn) date) Bibi Arreola unknown) W MR# (unknown) (no (unknown) (unknown) Procedure: CT (units ( unknown) date) chest wo con unknown) (unknown) (no (unknown) (unknown) Signed (units (unkno wn) date) unknown) (unknown) (no (unknown) (unknown) TECHNIQUE: (units (unk nown) date) unknown) (unknown) (no (unknown) (unknown) Thyroid gland is (units (unknown) date) unknown) (unknown) (no (unknown) (unknown) absence of (units (unk nown) date) contrast. unknown) (unknown) (no (unknown) (unknown) adenopathy (units (unk nown) date) unknown) (unknown) (no (unknown) (unknown) automated (units (unkn own) date) exposure control, unknown) adjustment of mA and/or kV according to patient (unknown) (no (unknown) (unknown) by size criteria. (units (unknown) date) Thoracic aorta and unknown) central pulmonary arteries are normal in (unknown) (no (unknown) (unknown) compression (units (un known) date) unknown) (unknown) (no (unknown) (unknown) costophrenic (units (u nknown) date) angles. 1 mm lung unknown) window, 5 mm thick coronal and sagittal and 7 (unknown) (no (unknown) (unknown) fractures. No (units ( unknown) date) axillary or unknown) supraclavicular adenopathy by size criteria. (unknown) (no (unknown) (unknown) in the (units (unkno wn) date) unknown) (unknown) (no (unknown) (unknown) mm axial (units (unkno wn) date) unknown) (unknown) (no (unknown) (unknown) pneumothorax. (units ( unknown) date) unknown) (unknown) (no (unknown) (unknown) posterior (units (unkn own) date) unknown) (unknown) (no (unknown) (unknown) size. (units (unkno wn) date) unknown) (unknown) (no (unknown) (unknown) unremarkable . (units (unknown) date) unknown) (unknown) (no (unknown) (unknown) was used: (units (unkn own) date) unknown) Social History date description facility 2022-10-10 00:00 Ex-smoker ([facility] Vital Signs date measurement value units 2022-10-10 00:00 BMI 26.0 kg/m2 2022-10-10 00:00 BP_diastolic 68 mmHg 2022-10-10 00:00 BP_systolic 110 mmHg 2022-10-10 00:00 heart_rate 92 /min 2022-10-10 00:00 height_metric 182.88 cm 2022-10-10 00:00 height_standard 72 in 2022-10-10 00:00 o2_saturation 99 % 2022-10-10 00:00 respiration_rate 18 /min 2022-10-10 00:00 temperature_metric 36.78 C 2022-10-10 00:00 temperature_standard 98.2 F 2022-10-10 00:00 weight_metric 87.08 kg 2022-10-10 00:00 weight_standard 191.98 lb
[2022-10-15] MEDS ORDERED: LORazepam 2 MG/ML VIAL IVP STA (23:05)
[2022-10-15] MEDS ORDERED: HYDROmorphone 1 MG/ML CARPUJECT IVP STA (23:05)
[2022-10-15] MEDS ORDERED: ONDANSETRON 4 MG/2 ML VIAL IVP STA (23:06)
[2022-10-15] MEDS ORDERED: SODIUM CHLORIDE 0.9% 500 ML IV STA (23:06)
[2022-10-15] MEDS ORDERED: KETOROLAC 30 MG/ML VIAL IVP STA (23:07)
--- NOTE | 2022-10-15 23:21 | ED Physician Documentation ---
PD HPI ABD PAIN - Stated complaint Stated Complaint: CHEST PX, SOA,MIGRAINE - Chief complaint Chief Complaint: Cardiac - History obtained from History obtained from: Patient - Additional information Additional information: 37yF with "long covid" p/w cp, soa, ongoing for several weeks, and MADSEN today. R frontal, aching, nonradiating, severe. Patient has a care plan describing specific medications her doctor recommends for her "no more than twice a month" for headache. Review of Systems Constitutional: denies: Fever Cardiac: reports: Chest pain / pressure Respiratory: reports: Dyspnea PD PAST MEDICAL HISTORY - Past Medical History Cardiovascular: None Respiratory: None Neuro: TIA, Headaches, Migraines Endocrine/Autoimmune: None GI: None [employer]: Endometriosis : None HEENT: None Psych: Depression, Anxiety, ADD/ADHD, Post traumatic stress disorder Musculoskeletal: Osteoarthritis, Fibromyalgia Derm: None - Past Surgical History Past Surgical History: Yes General: Appendectomy /[employer]: Endometrial ablation, Other HEENT: Tonsil/Adenoidectomy - Present Medications Home Medications: Ambulatory Orders Medication Instructions Recorded Confirmed Cholecalciferol [Vitamin D3] 5,000 unit PO DAILY 02/09/16 01/09/22 Pregabalin [Lyrica] 100 mg PO TID 02/09/16 01/09/22 Temazepam [Restoril] 1 tab PO DAILY 07/31/16 01/09/22 Magnesium 250 mg PO DAILY 06/21/17 01/09/22 EPINEPHrine [Epipen 2-Olayinka] 0.3 mg IJ ONCE PRN #1 auto.injct 08/14/17 01/09/22 Dextroamphetamine/Amphetamine 20 mg PO BID 12/08/21 01/09/22 [Adderall 10 mg Tablet] Melatonin 1 mg PO HS PRN 12/08/21 01/09/22 [place]-3/Dha/Epa/Fish Oil [Fish Oil 1 tab PO DAILY 12/08/21 01/09/22 1,000 mg Softgel] Zinc Citrate [Zinc] 1 tab PO DAILY 12/08/21 01/09/22 ondansetron HCL [Ondansetron HCl] 8 mg SL Q6HR PRN 12/08/21 01/09/22 oxyCODONE [Roxicodone] 10 mg PO Q4HR PRN 12/08/21 01/09/22 EPINEPHrine [Epinephrine] 0.3 mg IJ ONCE PRN #2 dis.syr 01/09/22 clonazePAM [Clonazepam] 1 mg PO BID PRN 01/09/22 01/09/22 Codeine Phosphate/Guaifenesin 10 ml PO Q6HR PRN #120 ml 10/04/22 [Codeine-Guaifen 10-100 mg/5 ml] Codeine Phosphate/Guaifenesin 5 ml PO Q6H PRN #100 ml 10/16/22 [Codeine-Guaifen 10-100 mg/5 ml] - Allergies Allergies/Adverse Reactions: Allergies Allergy/AdvReac Type Severity Reaction Status Date / Time sumatriptan succinate * Allergy Severe anaphylaxis Verified 10/15/22 22:42 [From Imitrex] vancomycin Allergy Severe nicolette Verified 10/15/22 22:42 syndrome doxycycline Allergy Unknown Unknown Verified 10/15/22 22:42 divalproex sodium Allergy Anaphylaxis Verified 10/15/22 22:42 [From Depakote] nortriptyline Allergy Anaphylaxis Verified 10/15/22 22:42 prochlorperazine Allergy Anaphylaxis Verified 10/15/22 22:42 [From Compazine] promethazine Allergy Anaphylaxis Verified 10/15/22 22:42 Antihistamines - Alkylamine AdvReac Severe severe Verified 10/15/22 22:42 anxiety, wheezing, dizziness prednisone AdvReac Severe Hallucinati Verified 10/15/22 22:42 ons diphenhydramine HCl * AdvReac Unknown Unknown Verified 10/15/22 22:42 [From Benadryl] pentosan polysulfate sodium AdvReac Unknown Verified 10/15/22 22:42 [From [place]] ondansetron odt Allergy Anaphylaxis Uncoded 10/15/22 22:42 tape Allergy Hives Uncoded 10/15/22 22:42 - Social History Does the pt smoke?: No Smoking Status: Never smoker Does the pt drink ETOH?: No Does the pt have substance abuse?: No - Immunizations Immunizations are current?: Yes - POLST Patient has POLST: No PD ED PE NORMAL - Vitals Vital signs reviewed: Yes - General General: Alert and oriented X 3, No acute distress, Well developed/nourished - HEENT HEENT: Atraumatic, PERRL - Neck Neck: Supple, no meningeal sign - Cardiac Cardiac: RRR - Respiratory Respiratory: No respiratory distress, Clear bilaterally - Abdomen Abdomen: Non tender, Non distended - Derm Derm: Normal color, Warm and dry - Extremities Extremities: No deformity - Neuro Neuro: No motor deficit, No sensory deficit - Psych Psych: Normal mood, Normal affect Results - Vitals Vitals: Vital Signs - 24 hr 10/15/22 10/15/22 10/16/22 22:30 23:49 00:34 Temperature 36.7 C Heart Rate 88 67 66 Respiratory 19 19 13 Rate Blood Pressure 117/86 H 127/77 122/82 H O2 Saturation 98 100 100 Oxygen O2 Source Room air - EKG (time done) 2236 Rate: Rate (enter#) (81) Rhythm: NSR [place]: Normal Intervals: Prolonged MT (216) Ischemia: Normal ST segments Computer interpretation: Agree with computer PD Medical Decision Making - ED course ED course: 37yF p/w cp, soa and headache, resolving s/p symptomatic management. ekg noncontibutory. plan to dc and f/u outpatient pcp. return precautions given. Departure - Departure Disposition: 01 Home, Self Care Clinical Impression: Cough, Migraine Condition: Good Instructions: Headaches Self Care Prescriptions: Codeine Phosphate/Guaifenesin [Codeine-Guaifen 10-100 mg/5 ml] 5 ml PO Q6H PRN #100 ml PRN Reason: Cough Comments: You are seen in the emergency department for medical evaluation. I am glad that you are feeling better! Please follow-up with your specialist and with your primary care provider. Return to the emergency department for new or worsening symptoms or other concerns. Electronic prescription sent to [facility]. Do not take your cough medicine within 2 hours of antianxiety medicine, since it can interact and cause you to stop breathing. Take only as prescribed. Forms: Activity restrictions Discharge Date/Time: 10/16/22 00:50
[2022-10-16 00:35] VITALS: BP 122/82
== END 2022-10-16 00:50 | disposition home or self-care (01) ==
LOC: ED 22:21
DX: G43.909 Migraine, unspecified, not intractable, without status migrainosus (principal); R05.9 Cough, unspecified
CPT/HCPCS: 93005; 96361; 96374; 96375; 99283; 99284; J1170; J2060

== ENCOUNTER 2022-12-14 22:43 | Emergency (ER) | payer MEDICAID ==
--- OUTSIDE RECORDS SUMMARY | 2022-12-14 22:58 | EXTERNAL MEDICAL SUMMARY RPT | Continuity of Care Document ---
:1985 Author Organization [place] Address [address] [place] [address] Phone Care Team Providers Name Role Phone Laurent Lucas Unavailable Unavailable Allergies and Intolerances date description facility type (no date) [facility] (unknown) (no date) acetaminophen [facility] (unknown) (no date) adhesive [facility] (unknown) (no date) amitriptyline [facility] (unknown) (no date) aspirin [facility] (unknown) (no date) benzocaine [facility] (unknown) (no date) butamben [facility] (unknown) (no date) dexamethasone [facility] (unknown) (no date) dicloxacillin [facility] (unknown) (no date) dihydroergocristine [facility] (unknown) (no date) dihydroergotamine [facility] (unknown) (no date) diphenhydramine [facility] (unknown) (no date) frovatriptan [facility] (unknown) (no date) hydroxyzine [facility] (unknown) (no date) ibuprofen [facility] (unknown) (no date) latex [facility] (unknown) (no date) metoclopramide [facility] (unknown) (no date) nortriptyline [facility] (unknown) (no date) prasterone (DHEA) [facility] (unknown) (no date) prednisone [facility] (unknown) (no date) prochlorperazine [facility] (unknown) (no date) promethazine [facility] (unknown) (no date) rizatriptan [facility] (unknown) (no date) sumatriptan [facility] (unknown) (no date) tetracaine [facility] (unknown) (no date) topiramate [facility] (unknown) (no date) valproic acid [facility] (unknown) (no date) vancomycin [facility] (unknown) (no date) verapamil [facility] (unknown) Encounters No information. Functional Status No information. Immunizations No information. Medications date description facility 2022-10-10 00:00 Benzonatate [facility] 2022-10-12 00:00 Benzonatate [facility] 2022-10-10 00:00 Albuterol Sulfate [facility] 2022-11-24 00:00 Ondansetron Hcl [facility] 2022-11-16 00:00 Sertraline [facility] 2022-11-16 00:00 Hydromorphone [facility] 2022-10-10 00:00 [facility] 2022-10-12 00:00 [facility] 2022-10-18 00:00 [facility] Problems date description facility 2022-10-12 08:18 Hemoptysis [facility] 2022-10-20 10:26 Opioid dependence, uncomplicated [facility] 2022-10-20 10:26 Cardiac arrhythmia, unspecified [facility] 2022-10-20 10:26 Gastrointestinal hemorrhage, [facility] 2022-10-20 10:29 Opioid dependence, uncomplicated [facility] 2022-10-20 10:29 Cardiac arrhythmia, unspecified [facility] 2022-10-20 10:29 Gastrointestinal hemorrhage, [facility] 2022-10-20 10:32 Opioid dependence, uncomplicated [facility] 2022-10-20 10:32 Cardiac arrhythmia, unspecified [facility] 2022-10-20 10:32 Gastrointestinal hemorrhage, [facility] 2022-10-20 14:09 [facility] 2022-11-16 12:36 Post-traumatic stress disorder, [facility] 2022-11-16 12:36 Gastric ulcer, unspecified as acute or chronic, [facility] without hemo 2022-11-16 12:36 Gastrointestinal hemorrhage, [facility] 2022-11-16 13:28 Post-traumatic stress disorder, [facility] 2022-11-16 13:28 Gastric ulcer, unspecified as acute or chronic, [facility] without hemo 2022-11-16 13:28 Gastrointestinal hemorrhage, [facility] 2022-11-16 13:28 Unspecified abdominal pain [facility] 2022-11-24 00:00 Migraine headache [facility] 2022-11-24 09:45 Post-traumatic stress disorder, [facility] 2022-11-24 09:45 Gastric ulcer, unspecified as acute or chronic, [facility] without [facility]mo 2022-11-24 09:45 Gastrointestinal hemorrhage, unspecifie d [facility] 2022-11-24 09:45 Right upper quadrant pain [facility] lauren 2022-12-05 08:16 Personal history of other specified con ditions [facility] Procedures date description facility 2022-12-05 00:00 Barium swallow with upper GI x-ray seri es with [facility] air contrast 2022-10-12 00:00 CT chest without contrast [facility] lauren 2022-11-24 00:00 NM scan hepatobiliary ducts including [facility] gallbladder w stimulation Results/Labs test date author facility value unit interpret ation Result panel 1 (unknown) (no date) (unknown[facility]) Result panel 2 (unknown) (no date) (unknown[facility] Result panel 3 (unknown) (no date) ([facility]) Result panel 4 (unknown) (no date) ([facility]) Result panel 5 (unknown) (no date) (unknown[facility]) Result panel 6 (unknown) (no date) (unknown[facility]) Result panel 7 (unknown) (no date) (unknown[facility]) Result panel 8 (unknown) (no date) (unknown[facility]) Result panel 9 (unknown) (no date) (unknown[facility]) Result panel 10 (unknown) (no date) (unknown[facility]) Result panel 11 (unknown) (no date) (unknown[facility]) Result panel 12 (unknown) (no date) (unknown[facility]) Result panel 13 (unknown) (no date) (unknown[facility]) Result panel 14 (unknown) (no date) (unknown[facility]) Result panel 15 (unknown) (no date) (unknown[facility]) Result panel 16 (unknown) (no date) (unknown[facility]) Result panel 17 (unknown) (no date) (unknown[facility]) Result panel 18 (unknown) (no date) (unknown[facility]) Result panel 19 (unknown) (no date) (unknown[facility]) Result panel 20 (unknown) (no date) (unknown[facility]) Result panel 21 (unknown) (no date) (unknown[facility]) Result panel 22 (unknown) (no date) (unknown[facility]) Result panel 23 (unknown) (no date) (unknown[facility]) Result panel 24 (unknown) (no date) (unknown[facility]) Result panel 25 (unknown) (no date) (unknown[facility]) Result panel 26 (unknown) (no date) (unknown[facility]) Result panel 27 (unknown) (no date) (unknown[facility]) Result panel 28 (unknown) (no date) (unknown[facility]) Result panel 29 (unknown) (no date) (unknown[facility]) Result panel 30 (unknown) (no date) (unknown[facility]) Result panel 31 (unknown) (no date) (unknown[facility]) Result panel 32 (unknown) (no date) (unknown[facility]) Result panel 33 (unknown) (no date) (unknown[facility]) Result panel 34 (unknown) (no date) (unknown[facility]) Result panel 35 (unknown) (no date) (unknown[facility]) Result panel 36 (unknown) (no date) (unknown[facility]) Result panel 37 (unknown) (no date) (unknown[facility]) Result panel 38 (unknown) (no date) (unknown[facility]) Result panel 39 (unknown) (no date) (unknown[facility]) Result panel 40 (unknown) (no date) (unknown[facility]) Result panel 41 (unknown) (no date) (unknown[facility]) Result panel 42 (unknown) (no date) (unknown[facility]) Result panel 43 (unknown) (no date) (unknown[facility]) Result panel 44 (unknown) (no date) (unknown[facility]) Result panel 45 (unknown) (no date) (unknown[facility]) Result panel 46 (unknown) (no date) (unknown[facility]) Result panel 47 (unknown) (no date) (unknown[facility]) Result panel 48 (unknown) (no date) (unknown[facility]) Result panel 49 (unknown) (no date) (unknown[facility]) Result panel 50 (unknown) (no date) (unknown[facility]) Result panel 51 (unknown) (no date) (unknown[facility]) Result panel 52 (unknown) (no date) (unknown[facility]) Result panel 53 (unknown) (no date) (unknown[facility]) Result panel 54 (unknown) (no date) (unknown[facility]) Result panel 55 (unknown) (no date) (unknown[facility]) Result panel 56 (unknown) (no date) (unknown[facility]) Result panel 57 (unknown) (no date) (unknown[facility]) Result panel 58 (unknown) (no date) (unknown[facility]) Result panel 59 (unknown) (no date) (unknown[facility]) Result panel 60 (unknown) (no date) (unknown[facility]) Result panel 61 (unknown) (no date) (unknown[facility]) Result panel 62 (unknown) (no date) (unknown[facility]) Result panel 63 (unknown) (no date) (unknown[facility]) Result panel 64 (unknown) (no date) (unknown[facility]) Result panel 65 (unknown) (no date) (unknown[facility]) Result panel 66 (unknown) (no date) (unknown[facility]) Result panel 67 (unknown) (no date) (unknown[facility]) Result panel 68 (unknown) (no date) (unknown[facility]) Result panel 69 (unknown) (no date) (unknown[facility]) Result panel 70 (unknown) (no date) (unknown[facility]) Result panel 71 (unknown) (no date) (unknown[facility]) Result panel 72 (unknown) (no date) (unknown[facility]) Result panel 73 (unknown) (no date) (unknown[facility]) Result panel 74 (unknown) (no date) (unknown[facility]) Result panel 75 (unknown) (no date) (unknown[facility]) Result panel 76 (unknown) (no date) (unknown[facility]) Result panel 77 (unknown) (no date) (unknown[facility]) Result panel 78 (unknown) (no date) (unknown[facility]) Result panel 79 (unknown) (no date) (unknown[facility]) Result panel 80 (unknown) (no date) (unknown[facility]) Result panel 81 (unknown) (no date) (unknown[facility]) Result panel 82 (unknown) (no date) (unknown[facility]) Result panel 83 (unknown) (no date) (unknown[facility]) Result panel 84 (unknown) (no date) (unknown[facility]) Result panel 85 (unknown) (no date) (unknown[facility]) Result panel 86 (unknown) (no date) (unknown[facility]) Result panel 87 (unknown) (no date) (unknown[facility]) Result panel 88 (unknown) (no date) (unknown[facility]) Result panel 89 (unknown) (no date) (unknown[facility]) Result panel 90 (unknown) (no date) (unknown[facility]) Result panel 91 (unknown) (no date) (unknown[facility]) Result panel 92 (unknown) (no date) (unknown[facility]) Result panel 93 (unknown) (no date) (unknown[facility]) Result panel 94 (unknown) (no date) (unknown[facility]) Result panel 95 (unknown) (no date) (unknown[facility]) Result panel 96 (unknown) (no date) (unknown[facility]) Result panel 97 (unknown) (no date) (unknown[facility]) Result panel 98 (unknown) (no date) (unknown[facility]) Result panel 99 (unknown) (no date) (unknown[facility]) Result panel 100 (unknown) (no date) (unknown[facility]) Result panel 101 (unknown) (no date) (unknown[facility]) Result panel 102 (unknown) (no date) (unknown[facility]) Result panel 103 (unknown) (no date) (unknown[facility]) Result panel 104 (unknown) (no date) (unknown[facility]) Result panel 105 (unknown) (no date) (unknown[facility]) Result panel 106 (unknown) (no date) (unknown[facility]) Result panel 107 (unknown) (no date) (unknown[facility]) Result panel 108 (unknown) (no date) (unknown[facility]) Result panel 109 (unknown) (no date) (unknown[facility]) Result panel 110 (unknown) (no date) (unknown[facility]) Result panel 111 (unknown) (no date) (unknown[facility]) Result panel 112 (unknown) (no date) (unknown[facility]) Result panel 113 (unknown) (no date) (unknown[facility]) Result panel 114 (unknown) (no date) (unknown[facility]) Result panel 115 (unknown) (no date) (unknown[facility]) Result panel 116 (unknown) (no date) (unknown[facility]) Result panel 117 (unknown) (no date) (unknown[facility]) Result panel 118 (unknown) (no date) (unknown[facility]) Result panel 119 (unknown) (no date) (unknown[facility]) Result panel 120 (unknown) (no date) (unknown[facility]) Result panel 121 (unknown) (no date) (unknown[facility]) Result panel 122 (unknown) (no date) (unknown[facility]) Result panel 123 (unknown) (no date) (unknown[facility]) Result panel 124 (unknown) (no date) (unknown[facility]) Result panel 125 (unknown) (no date) (unknown[facility]) Result panel 126 (unknown) (no date) (unknown[facility]) Result panel 127 (unknown) (no date) (unknown[facility]) Result panel 128 (unknown) (no date) (unknown[facility]) Result panel 129 (unknown) (no date) (unknown[facility]) Result panel 130 (unknown) (no date) (unknown[facility]) Result panel 131 (unknown) (no date) (unknown[facility]) Result panel 132 (unknown) (no date) (unknown[facility]) Result panel 133 (unknown) (no date) (unknown[facility]) Result panel 134 (unknown) (no date) (unknown[facility]) Result panel 135 (unknown) (no date) (unknown[facility]) Result panel 136 (unknown) (no date) (unknown[facility]) Result panel 137 (unknown) (no date) (unknown[facility]) Result panel 138 (unknown) (no date) (unknown[facility]) Result panel 139 (unknown) (no date) (unknown[facility]) Result panel 140 (unknown) (no date) (unknown[facility]) Result panel 141 (unknown) (no date) (unknown[facility]) Result panel 142 (unknown) (no date) (unknown[facility]) Result panel 143 (unknown) (no date) (unknown[facility]) Result panel 144 (unknown) (no date) (unknown[facility]) Result panel 145 (unknown) (no date) (unknown[facility]) Result panel 146 (unknown) (no date) (unknown[facility]) Result panel 147 (unknown) (no (unknown) (unknown) (no value) (units (unk nown) date) unknown) (unknown) (no (unknown) (unknown) *MARIANNA* [...] own) date) unknown) (unknown) (no (unknown) (unknown) [place] [id number] (unit s (unknown) date) unknown) (unknown) (no [...] (unknown) (unknown) : 1985 (units (unknown) date) Acct:[id number] unknown) (unknown) (no (unknown) (unknown) Depression (units [...] wn) date) unknown) (unknown) (no (unknown) (unknown) [id number] (units (unk nown) date) unknown) (unknown) (no [...] (unknown) (unknown) Patient: (units (unkno wn) date) Maxwell,Bibi W unknown) MR#: (unknown) (no (unknown) (unknown) [...] Reasons: (units (unknown) date) *horras pt* unknown) [facility] Follow up (unknown) (no (unknown) (unknown) acetaminophen [...] nown) date) [BENZOCAINE] Allergy unknown) (Unknown, Verified 05/26/21) (unknown) (no (unknown) (unknown) butamben [From (units (unknown) date) CETACAINE] Allergy unknown) (Unknown, Verified 05/26/21) (unknown) (no (unknown) (unknown) dexamethasone (units ( unknown) date) [DEXAMETHASONE] unknown) Allergy (Unknown, Verified 05/26/21) (unknown) (no (unknown) (unknown) dicloxacillin (units ( unknown) date) [DICLOXACILLIN] unknown) Allergy (Unknown, Verified 05/26/21) (unknown) (no (unknown) (unknown) dihydroergocristine (unit s (unknown) date) [DIHYDROERGOCRISTINE] unknown) Allergy (Unknown, Verified 05/26/21 (unknown) (no (unknown) (unknown) dihydroergotamine (units (unknown) date) [DIHYDROERGOTAMINE] unknown) Allergy (Unknown, Verified 05/26/21) (unknown) (no (unknown) (unknown) diphenhydramine (units (unknown) date) [DIPHENHYDRAMINE] unknown) Allergy (Unknown, Verified 05/26/21) (unknown) (no (unknown) (unknown) frovatriptan (units (u [...] ( unknown) date) Allergy (Unknown, unknown) Verified 10/07/21 14:46) (unknown) (no (unknown) (unknown) may occur. (units (unk nown) date) Occasional wrong-word unknown) or 'sound-alike' substitutions may have (unknown) (no (unknown) (unknown) metoclopramide (units (unknown) date) [METOCLOPRAMIDE] unknown) Allergy (Unknown, Verified 05/26/21 14:46) (unknown) (no (unknown) (unknown) nortriptyline (units ( unknown) date) [NORTRIPTYLINE] unknown) Allergy (Unknown, Verified 05/26/21 14:46) (unknown) (no (unknown) (unknown) occurred due to the (unit s (unknown) date) inherent limitations unknown) of voice recognition software. Please (unknown) (no (unknown) (unknown) prasterone (DHEA) (units (unknown) date) [PRASTERONE (DHEA)] unknown) Allergy (Unknown, Verified 05/26/21 14:46) (unknown) (no (unknown) (unknown) prednisone (units (unk nown) date) [PREDNISONE] Allergy unknown) (Unknown, Verified 05/26/21 14:46) (unknown) (no (unknown) (unknown) prochlorperazine (units (unknown) date) [From COMPAZINE] unknown) Allergy (Unknown, Verified 05/26/21 14:46) (unknown) (no (unknown) (unknown) promethazine [From (units (unknown) date) PHENERGAN] Allergy unknown) (Unknown, Verified 05/26/21 14:46) (unknown) (no (unknown) (unknown) read the note (units ( unknown) date) carefully and unknown) recognize, using context, where these substitutions (unknown) (no (unknown) (unknown) rizatriptan (units (un known) date) [RIZATRIPTAN] Allergy unknown) (Unknown, Verified 05/26/21 14:46) (unknown) (no (unknown) (unknown) software. Although (units (unknown) date) every effort is made unknown) to edit content, plastic block boiler reliner errors (unknown) (no (unknown) (unknown) sumatriptan (units (un known) date) [SUMATRIPTAN] Allergy unknown) (Unknown, Verified 05/26/21 14:46) (unknown) (no (unknown) (unknown) tetracaine (units (unk nown) date) [TETRACAINE] Allergy unknown) (Unknown, Verified 05/26/21 14:46) (unknown) (no (unknown) (unknown) topiramate [From (units (unknown) date) TOPAMAX] Allergy unknown) (Unknown, Verified 05/26/21 14:46) (unknown) (no (unknown) (unknown) valproic acid (units ( unknown) date) [VALPROIC ACID] unknown) Allergy (Unknown, Verified 05/26/21 14:46) (unknown) (no (unknown) (unknown) vancomycin (units (unk nown) date) [VANCOMYCIN] Allergy unknown) (Unknown, Verified 05/26/21 14:46) (unknown) (no (unknown) (unknown) verapamil (units (unkn own) date) [VERAPAMIL] Allergy unknown) (Unknown, Verified 05/26/21 14:46) Result panel 148 (unknown) (no (unknown) (unknown) (no value) (units [...] own) date) unknown) (unknown) (no (unknown) (unknown) [place] [id number] (unit s (unknown) date) unknown) (unknown) (no (unknown) (unknown) Anesthesia (units (unk nown) date) unknown) (unknown) (no (unknown) (unknown) Ankle pain (units (unk nown) date) unknown) (unknown) (no (unknown) (unknown) Anxiety (units (unkno wn) date) unknown) (unknown) (no (unknown) (unknown) Asthma (units (unkno wn) date) unknown) (unknown) (no (unknown) (unknown) Attending Dr: Lola (unit s (unknown) date) [facility] unknown) (unknown) (no (unknown) (unknown) BLISTERS AT [...] (unknown) (unknown) : 1985 (units (unknown) date) Acct:[id number] unknown) (unknown) (no (unknown) (unknown) Depression (units (unk nown) date) unknown) (unknown) (no (unknown) (unknown) Dept at (units (unkno wn) date) . unknown) (unknown) (no (unknown) (unknown) Documented By: (units (unknown) date) TammyLolaCandice RACHEL unknown) 10/10/22 0958 (unknown) (no (unknown) (unknown) [...] wn) date) unknown) (unknown) (no (unknown) (unknown) [id number] (units (unk nown) date) unknown) (unknown) (no [...] (unknown) Shoulder pain (units ( unknown) date) (-2020) unknown) (unknown) (no (unknown) (unknown) Signed By: [...] Reasons: (units (unknown) date) *horras pt* unknown) [facility] Follow up (unknown) (no (unknown) (unknown) Vitals [...] effort is made unknown) to edit content, plastic block boiler reliner errors (unknown) (no (unknown) (unknown) sumatriptan (units [...] mg PO DAILY 05/26/21 [History Result panel 149 (unknown) (no (unknown) (unknown) (no value) (units [...] date) unknown) (unknown) (no (unknown) (unknown) [place] [id number] (unit s (unknown) date) unknown) (unknown) (no [...] (unknown) (unknown) : 1985 (units (unknown) date) Acct:[id number] unknown) (unknown) (no (unknown) (unknown) Depression (units [...] wn) date) unknown) (unknown) (no (unknown) (unknown) [id number] (units (unk nown) date) unknown) (unknown) (no [...] Reasons: (units (unknown) date) *horras pt* unknown) [facility] Follow up (unknown) (no (unknown) (unknown) Vitals [...] effort is made unknown) to edit content, plastic block boiler reliner errors (unknown) (no (unknown) (unknown) sumatriptan (units [...] mg PO DAILY 05/26/21 [History Result panel 150 (unknown) (no (unknown) (unknown) (no value) (units [...] own) date) unknown) (unknown) (no (unknown) (unknown) [place] [address] (unit s (unknown) date) unknown) (unknown) (no [...] (unknown) (unknown) : 1985 (units (unknown) date) Acct:[id number] unknown) (unknown) (no (unknown) (unknown) Depression (units (unk nown) date) unknown) (unknown) (no (unknown) (unknown) Dept at (units (unkno wn) date) . unknown) (unknown) (no (unknown) (unknown) Details: (units (unkno wn) date) unknown) (unknown) (no (unknown) (unknown) Documented By: (units (unknown) date) MontgomeryLola unknown) 10/10/22 0958 (unknown) (no (unknown) (unknown) [...] wn) date) unknown) (unknown) (no (unknown) (unknown) [id number] (units (unk nown) date) unknown) (unknown) (no [...] Reasons: (units (unknown) date) *marianna pt* unknown) [facility] Follow up (unknown) (no (unknown) (unknown) Vitals [...] effort is made unknown) to edit content, plastic block boiler reliner errors (unknown) (no (unknown) (unknown) sumatriptan (units [...] mg PO DAILY 05/26/21 [History Result panel 151 (unknown) (no (unknown) (unknown) (no value) (units (unk nown) date) unknown) (unknown) (no (unknown) (unknown) ##20 10/08/17 [Rx (units (unknown) date) Confirmed 10/10/22] unknown) (unknown) (no (unknown) (unknown) 'drowning on dry (units (unknown) date) land'. She has been unknown) coughing up red/black pieces. (unknown) (no (unknown) (unknown) (1) Hemoptysis: (units (unknown) date) unknown) (unknown) (no (unknown) (unknown) *HORRAS* [...] date) unknown) (unknown) (no (unknown) (unknown) [place] [id number] (unit s (unknown) date) unknown) (unknown) (no (unknown) (unknown) Anesthesia (units (unk nown) date) unknown) (unknown) (no (unknown) (unknown) Ankle pain (units (unk nown) date) unknown) (unknown) (no (unknown) (unknown) Anxiety (units (unkno wn) date) unknown) (unknown) (no (unknown) (unknown) Assessment + Plan (units (unknown) date) unknown) (unknown) (no (unknown) (unknown) Asthma (units (unkno wn) date) unknown) (unknown) (no (unknown) (unknown) Attending DrVarsha Davila (unit s (unknown) date) [facility] unknown) (unknown) (no (unknown) (unknown) BLISTERS AT [...] (unknown) (unknown) : 1985 (units (unknown) date) Acct:[id number] unknown) (unknown) (no (unknown) (unknown) Depression (units [...] wn) date) unknown) (unknown) (no (unknown) (unknown) [id number] (units (unk nown) date) unknown) (unknown) (no [...] Reasons: (units (unknown) date) *horras pt* unknown) [facility] Follow up (unknown) (no (unknown) (unknown) Vitals [...] effort is made unknown) to edit content, plastic block boiler reliner errors (unknown) (no (unknown) (unknown) sumatriptan (units [...] mg PO DAILY 05/26/21 [History Result panel 152 (unknown) (no (unknown) (unknown) (no value) (units (unk nown) date) unknown) (unknown) (no (unknown) (unknown) ##20 10/08/17 [Rx (units (unknown) date) Confirmed 10/10/22] unknown) (unknown) (no (unknown) (unknown) 'drowning on dry (units (unknown) date) land'. She has been unknown) coughing up red/black pieces. (unknown) (no (unknown) (unknown) (1) Hemoptysis: (units (unknown) date) unknown) (unknown) (no (unknown) (unknown) *INGRIDRAS* 37 Y F, (units (unknown) date) patient [...] own) date) unknown) (unknown) (no (unknown) (unknown) [place] [address] (unit s (unknown) date) unknown) (unknown) (no [...] Tammy RACHEL unknown) (unknown) (no (unknown) (unknown) Attitude: (units [...] (unknown) (unknown) : 1985 (units (unknown) date) Acct:[id number] unknown) (unknown) (no (unknown) (unknown) Depression (units [...] wn) date) unknown) (unknown) (no (unknown) (unknown) [id number] (units (unk nown) date) unknown) (unknown) (no [...] already has (units (unknown) date) appointment with unknownGermania Lucas on 10/20/2022 (unknown) (no (unknown) (unknown) [...] Reasons: (units (unknown) date) *horras pt* unknown) [facility] Follow up (unknown) (no (unknown) (unknown) Vitals [...] effort is made unknown) to edit content, plastic block boiler reliner errors ma (unknown) (no (unknown) (unknown) sumatriptan [...] mg PO DAILY 05/26/21 [History Result panel 153 (unknown) (no (unknown) (unknown) (no value) (units (unk nown) date) unknown) (unknown) (no (unknown) (unknown) 10/12/22 (units (unkno wn) date) unknown) (unknown) (no (unknown) (unknown) [address] [place] [address] (units (unknown) date) unknown) (unknown) (no (unknown) (unknown) : [id number] (units (u nknown) date) unknown) (unknown) (no (unknown) (unknown) Abdomen: (units (unkno wn) date) Visualized upper unknown) abdominal solid organs and bowel loops appear normal (unknown) (no (unknown) (unknown) Accession Number: (units (unknown) date) [id number] unknown) (unknown) (no (unknown) (unknown) Age/Sex: 37 / F (units (unknown) date) Date of Service: unknown) (unknown) (no (unknown) (unknown) [place] Khan (units ( unknown) date) [id number] unknown) (unknown) (no (unknown) (unknown) Approved by: (units (u nknown) date) celi Christine M.D. on 10/12/2022 at 8:52 (unknown) (no (unknown) [...] (unknown) (unknown) : 1985 (units (unknown) date) Acct:[id number] unknown) (unknown) (no (unknown) (unknown) Dictated by: (units (u nknown) date) Christiano Tom, unknown) Do on 10/12/2022 at 8:50 (unknown) (no [...] date) Excellent. unknown) (unknown) (no (unknown) (unknown) [facility] (units (unknown) date) unknown) (unknown) (no (unknown) [...] was used: (units (unkn own) date) unknown) Result panel 154 (unknown) (no (unknown) (unknown) (no value) (units (unk nown) date) unknown) (unknown) (no (unknown) (unknown) - Fibromyalgia (units (unknown) date) unknown) (unknown) (no (unknown) (unknown) 10/20/22 (units (unkno wn) date) unknown) (unknown) (no (unknown) (unknown) 10:31) (units (unkno wn) date) unknown) (unknown) (no (unknown) (unknown) 37 year old female (units (unknown) date) presents to clinic unknown) for coughing up blood x (unknown) (no (unknown) (unknown) Age/Sex: 37 / F Date (uni ts (unknown) date) of Service: unknown) (unknown) (no (unknown) (unknown) Allergies (units (unkn own) date) unknown) (unknown) (no (unknown) (unknown) [place] [address] (unit s (unknown) date) unknown) (unknown) (no [...] known) date) unknown) (unknown) (no (unknown) (unknown) Complete Blood Count (uni ts (unknown) date) AUTO DIFF Today unknown) F11.20 - Opioid dependence, uncomplicated, (unknown) (no (unknown) (unknown) Comprehensive (units ( unknown) date) Metabolic Panel Today unknown) F11.20 - Opioid dependence, uncomplicated, (unknown) (no (unknown) (unknown) : 1985 (units (unknown) date) Acct:[id number] unknown) (unknown) (no (unknown) (unknown) Depression (units (unk nown) date) unknown) (unknown) (no (unknown) (unknown) Dept at (units (unkno wn) date) . unknown) (unknown) (no (unknown) (unknown) Documented By: (units (unknown) date) Lizz Dodge 10/20/22 unknown) 1030 (unknown) (no (unknown) (unknown) Draft (units (unkno [...] hernia repair unknown) (unknown) (no (unknown) (unknown) I49.9 - Cardiac (units (unknown) date) arrhythmia, unknown) unspecified, K92.2 - Gastrointestinal hemorrhage, (unknown) (no (unknown) (unknown) Intake Note: (units [...] unknown) date) unknown) (unknown) (no (unknown) (unknown) Lipid Panel Today (units (unknown) date) F11.20 - Opioid unknown) dependence, uncomplicated, I49.9 - Cardiac (unknown) (no (unknown) (unknown) Loc: [facility] (units (unkno wn) date) unknown) (unknown) (no (unknown) (unknown) [id number] (units (unk nown) date) unknown) (unknown) (no (unknown) (unknown) Medical History (units (unknown) date) (Updated 07/07/21 @ unknown) 21:03 by oJvita Pham) (unknown) (no (unknown) (unknown) Mental health (units ( unknown) date) problem unknown) (unknown) (no (unknown) (unknown) Migraines (units (unkn own) date) unknown) (unknown) (no (unknown) (unknown) Mother (units (unknown) date) Cancer unknown) (unknown) (no (unknown) (unknown) Orders (units (unkno wn) date) unknown) (unknown) (no (unknown) (unknown) Orders: (units (unkno wn) date) unknown) (unknown) (no (unknown) (unknown) Ovarian cyst (units (u nknown) date) unknown) (unknown) (no (unknown) (unknown) PFSH (units (unkno wn) date) unknown) (unknown) (no (unknown) (unknown) PLASTIC MEDICAL TAPE (uni ts (unknown) date) Allergy (Mild, unknown) Uncoded 10/20/22 10:31) (unknown) (no (unknown) (unknown) PTSD (post-traumatic (uni [...] (unknown) Shoulder pain (units ( unknown) date) (-2020) unknown) (unknown) (no (unknown) (unknown) Signed By: [...] (unknown) (unknown) Visit Reasons: (units (unknown) date) vomiting, coughing 03 unknown) (unknown) (no (unknown) (unknown) acetaminophen (units ( unknown) date) [ACETAMINOPHEN] unknown) Allergy (Unknown, Verified 10/20/22 10:31) (unknown) (no (unknown) (unknown) adhesive [ADHESIVE] (unit s (unknown) date) Allergy (Unknown, unknown) Verified 10/20/22 10:31) (unknown) (no (unknown) (unknown) amitriptyline (units ( unknown) date) [AMITRIPTYLINE] unknown) Allergy (Unknown, Verified 10/20/22 10:31) (unknown) (no (unknown) (unknown) arrhythmia, (units (unk nown) date) unspecified, K92.2 - unknown) Gastrointestinal hemorrhage, unspecified, M79.7 (unknown) (no (unknown) (unknown) aspirin [ASPIRIN] (units (unknown) date) Allergy (Unknown, unknown) Verified 10/20/22 10:) (unknown) (no (unknown) (unknown) benzocaine (units (unk nown) date) [BENZOCAINE] Allergy unknown) (Unknown, Verified 10/20/22 10:31) (unknown) (no (unknown) (unknown) butamben [From (units (unknown) date) CETACAINE] Allergy unknown) (Unknown, Verified 10/20/22 10:) (unknown) (no (unknown) (unknown) dexamethasone (units ( unknown) date) [DEXAMETHASONE] unknown) Allergy (Unknown, Verified 10/20/22 10:) (unknown) (no (unknown) (unknown) dicloxacillin (units ( unknown) date) [DICLOXACILLIN] unknown) Allergy (Unknown, Verified 10/20/22 10:) (unknown) (no (unknown) (unknown) dihydroergocristine (unit s (unknown) date) [DIHYDROERGOCRISTINE] unknown) Allergy (Unknown, Verified 10/20/22 (unknown) (no (unknown) (unknown) dihydroergotamine (units (unknown) date) [DIHYDROERGOTAMINE] unknown) Allergy (Unknown, Verified 10/20/22 10:) (unknown) (no (unknown) (unknown) diphenhydramine (units (unknown) date) [DIPHENHYDRAMINE] unknown) Allergy (Unknown, Verified 10/20/22 10:) (unknown) (no (unknown) (unknown) frovatriptan (units (u nknown) date) [FROVATRIPTAN] unknown) Allergy (Unknown, Verified 10/20/22 10:) (unknown) (no (unknown) (unknown) have occurred. If (units (unknown) date) there are any unknown) questions, please contact the Medical Records (unknown) (no (unknown) (unknown) hydroxyzine (units (un known) date) [HYDROXYZINE] Allergy unknown) (Unknown, Verified 10/20/22 10:31) (unknown) (no (unknown) (unknown) ibuprofen (units (unkn own) date) [IBUPROFEN] Allergy unknown) (Unknown, Verified 10/20/22 10:31) (unknown) (no (unknown) (unknown) latex [LATEX] (units ( unknown) date) Allergy (Unknown, unknown) Verified 10/20/22 10:31) (unknown) (no (unknown) (unknown) may occur. (units (unk nown) date) Occasional wrong-word unknown) or 'sound-alike' substitutions may have (unknown) (no (unknown) (unknown) metoclopramide (units (unknown) date) [METOCLOPRAMIDE] unknown) Allergy (Unknown, Verified 10/20/22 10:31) (unknown) (no (unknown) (unknown) nortriptyline (units ( unknown) date) [NORTRIPTYLINE] unknown) Allergy (Unknown, Verified 10/20/22 10:31) (unknown) (no (unknown) (unknown) occurred due to the (unit s (unknown) date) inherent limitations unknown) of voice recognition software. Please (unknown) (no (unknown) (unknown) prasterone (DHEA) (units (unknown) date) [PRASTERONE (DHEA)] unknown) Allergy (Unknown, Verified 10/20/22 10:) (unknown) (no (unknown) (unknown) prednisone (units (unk nown) date) [PREDNISONE] Allergy unknown) (Unknown, Verified 10/20/22 10:31) (unknown) (no (unknown) (unknown) prochlorperazine (units (unknown) date) [From COMPAZINE] unknown) Allergy (Unknown, Verified 10/20/22 10:31) (unknown) (no (unknown) (unknown) promethazine [From (units (unknown) date) PHENERGAN] Allergy unknown) (Unknown, Verified 10/20/22 10:31) (unknown) (no (unknown) (unknown) read the note (units ( unknown) date) carefully and unknown) recognize, using context, where these substitutions (unknown) (no (unknown) (unknown) rizatriptan (units (un known) date) [RIZATRIPTAN] Allergy unknown) (Unknown, Verified 10/20/22 10:31) (unknown) (no (unknown) (unknown) software. Although (units (unknown) date) every effort is made unknown) to edit content, plastic block boiler reliner errors (unknown) (no (unknown) (unknown) sumatriptan (units (un known) date) [SUMATRIPTAN] Allergy unknown) (Unknown, Verified 10/20/22 10:31) (unknown) (no (unknown) (unknown) tetracaine (units (unk nown) date) [TETRACAINE] Allergy unknown) (Unknown, Verified 10/20/22 10:31) (unknown) (no (unknown) (unknown) topiramate [From (units (unknown) date) TOPAMAX] Allergy unknown) (Unknown, Verified 10/20/22 10:31) (unknown) (no (unknown) (unknown) unspecified, M79.7 - (uni ts (unknown) date) Fibromyalgia unknown) (unknown) (no (unknown) (unknown) valproic acid (units ( unknown) date) [VALPROIC ACID] unknown) Allergy (Unknown, Verified 10/20/22 10:31) (unknown) (no (unknown) (unknown) vancomycin (units (unk nown) date) [VANCOMYCIN] Allergy unknown) (Unknown, Verified 10/20/22 10:31) (unknown) (no (unknown) (unknown) verapamil (units (unkn own) date) [VERAPAMIL] Allergy unknown) (Unknown, Verified 10/20/22 10:31) Result panel 155 (unknown) (no (unknown) (unknown) (no value) (units (unk nown) date) unknown) (unknown) (no (unknown) (unknown) - Vomiting, (units (un known) date) unspecified unknown) (unknown) (no (unknown) (unknown) 10/20/22 (units (unkno wn) date) unknown) (unknown) (no (unknown) (unknown) 10:31) (units (unkno wn) date) unknown) (unknown) (no (unknown) (unknown) 1st. (units (unkno wn) date) unknown) (unknown) (no (unknown) (unknown) 37 year old female (units (unknown) date) presents to clinic unknown) for coughing up blood x since september (unknown) (no (unknown) (unknown) Age/Sex: 37 / F Date (uni ts (unknown) date) of Service: unknown) (unknown) (no (unknown) (unknown) Allergies (units (unkn own) date) unknown) (unknown) (no (unknown) (unknown) Allergies: Reviewed (unit s (unknown) date) unknown) (unknown) (no (unknown) (unknown) [place] [id number] (unit s (unknown) date) unknown) (unknown) (no [...] (unknown) date) unknown) (unknown) (no (unknown) (unknown) Cardiovascular: (units (unknown) date) Negative.? unknown) (unknown) (no (unknown) (unknown) Cervical cyst (units ( unknown) date) unknown) (unknown) (no (unknown) (unknown) Chicken pox (units (un known) date) unknown) (unknown) (no (unknown) (unknown) Chief Complaint: (units (unknown) date) coughing up blood unknown) (unknown) (no (unknown) (unknown) Complete Blood Count (uni ts (unknown) date) AUTO DIFF Today R10.9 unknown) - Unspecified abdominal pain, R11.10 (unknown) (no (unknown) (unknown) Comprehensive (units ( unknown) date) Metabolic Panel Today unknown) R10.9 - Unspecified abdominal pain, R11.10 (unknown) (no (unknown) (unknown) Constitutional: (units (unknown) date) Negative.? unknown) (unknown) (no (unknown) (unknown) : 1985 (units (unknown) date) Acct:[id number] unknown) (unknown) (no (unknown) (unknown) Depression (units (unk nown) date) unknown) (unknown) (no (unknown) (unknown) Dept at (units (unkno wn) date) . unknown) (unknown) (no (unknown) (unknown) Documented By: (units (unknown) date) Lizz Dodge 10/20/22 unknown) 1030 (unknown) (no (unknown) (unknown) Draft (units (unkno wn) date) unknown) (unknown) (no (unknown) (unknown) Endocrine: (units (unk nown) date) Negative.? unknown) (unknown) (no (unknown) (unknown) Endometriosis (units [...] unknown) date) unknown) (unknown) (no (unknown) (unknown) Gastrointestinal: (units (unknown) date) Negative.? unknown) (unknown) (no (unknown) (unknown) Genitourinary: (units (unknown) date) Negative.? unknown) (unknown) (no (unknown) (unknown) Grandfather (uni [...] hernia repair unknown) (unknown) (no (unknown) (unknown) I reviewed the (units (unknown) date) patient's Past unknown) Medical History, Problem List, Medications and (unknown) (no (unknown) (unknown) Intake Note: (units [...] wn) date) unknown) (unknown) (no (unknown) (unknown) [id number] (units (unk nown) date) unknown) (unknown) (no (unknown) (unknown) Medical History (units (unknown) date) (Updated 07/07/21 @ unknown) 21:03 by Jovita Pham) (unknown) (no (unknown) (unknown) Medications: (units (u nknown) date) Reconciled unknown) (unknown) (no (unknown) (unknown) Mental health (units ( unknown) date) problem unknown) (unknown) (no (unknown) (unknown) Migraines (units (unkn own) date) unknown) (unknown) (no (unknown) (unknown) Mother (units (unknown) date) Cancer unknown) (unknown) (no (unknown) (unknown) Neurological: (units ( unknown) date) Negative.? unknown) (unknown) (no (unknown) (unknown) Note (units (unkno wn) date) unknown) (unknown) (no (unknown) (unknown) Note: (units (unkno wn) date) unknown) (unknown) (no (unknown) (unknown) Notes (units (unkno wn) date) unknown) (unknown) (no (unknown) (unknown) Objective: (units (unk nown) date) unknown) (unknown) (no (unknown) (unknown) Orders (units (unkno wn) date) unknown) (unknown) (no (unknown) (unknown) Orders: (units (unkno wn) date) unknown) (unknown) (no (unknown) (unknown) Ovarian cyst (units (u nknown) date) unknown) (unknown) (no (unknown) (unknown) PFSH (units (unkno wn) date) unknown) (unknown) (no (unknown) (unknown) PLASTIC MEDICAL TAPE (uni ts (unknown) date) Allergy (Mild, unknown) Uncoded 10/20/22 10:31) (unknown) (no (unknown) (unknown) POC Urine (unit s (unknown) date) Test Today R10.9 - unknown) Unspecified abdominal pain, R11.10 (unknown) (no (unknown) (unknown) PTSD (post-traumatic (uni ts (unknown) date) stress disorder) unknown) (unknown) (no (unknown) (unknown) Painful menstrual (units (unknown) date) periods unknown) (unknown) (no (unknown) (unknown) Patient: (units (unkno wn) date) Maxwell,Bibi W unknown) MR#: (unknown) (no (unknown) (unknown) Reason For Visit (units (unknown) date) unknown) (unknown) (no (unknown) (unknown) Respiratory: (units (u nknown) date) Negative.? unknown) (unknown) (no (unknown) (unknown) Review of Systems: (units (unknown) date) unknown) (unknown) (no (unknown) (unknown) Ruptured tympanic (units (unknown) date) membrane unknown) (unknown) (no (unknown) (unknown) Shoulder pain (units ( unknown) date) () unknown) (unknown) (no (unknown) (unknown) Signed By: (units (unk nown) date) unknown) (unknown) (no (unknown) (unknown) Smoking Status: (units (unknown) date) Former smoker unknown) (unknown) (no (unknown) (unknown) Social History (units (unknown) date) (including tobacco unknown) use status). (unknown) (no (unknown) (unknown) Stroke (units (unkno wn) date) unknown) (unknown) (no (unknown) (unknown) Subjective: (units (un known) date) unknown) (unknown) (no (unknown) (unknown) Surgical [...] (unknown) (unknown) Visit Reasons: (units (unknown) date) vomiting, coughing 03 unknown) (unknown) (no (unknown) (unknown) Vital Signs: (units (u nknown) date) Reviewed unknown) (unknown) (no (unknown) (unknown) Voice recognition (units (unknown) date) software was used in unknown) the creation of this note. There may be (unknown) (no (unknown) (unknown) Vomiting, (units (unkn own) date) unspecified unknown) (unknown) (no (unknown) (unknown) [] (units (unkno wn) date) unknown) (unknown) (no (unknown) (unknown) acetaminophen (units ( unknown) date) [ACETAMINOPHEN] unknown) Allergy (Unknown, Verified 10/20/22 10:31) (unknown) (no (unknown) (unknown) adhesive [ADHESIVE] (unit s (unknown) date) Allergy (Unknown, unknown) Verified 10/20/22 10:31) (unknown) (no (unknown) (unknown) amitriptyline (units ( unknown) date) [AMITRIPTYLINE] unknown) Allergy (Unknown, Verified 10/20/22 10:31) (unknown) (no (unknown) (unknown) aspirin [ASPIRIN] (units (unknown) date) Allergy (Unknown, unknown) Verified 10/20/22 10:31) (unknown) (no (unknown) (unknown) benzocaine (units (unk nown) date) [BENZOCAINE] Allergy unknown) (Unknown, Verified 10/20/22 10:31) (unknown) (no (unknown) (unknown) butamben [From (units (unknown) date) CETACAINE] Allergy unknown) (Unknown, Verified 10/20/22 10:31) (unknown) (no (unknown) (unknown) dexamethasone (units ( unknown) date) [DEXAMETHASONE] unknown) Allergy (Unknown, Verified 10/20/22 10:31) (unknown) (no (unknown) (unknown) dicloxacillin (units ( unknown) date) [DICLOXACILLIN] unknown) Allergy (Unknown, Verified 10/20/22 10:31) (unknown) (no (unknown) (unknown) dihydroergocristine (unit s (unknown) date) [DIHYDROERGOCRISTINE] unknown) Allergy (Unknown, Verified 10/20/22 (unknown) (no (unknown) (unknown) dihydroergotamine (units (unknown) date) [DIHYDROERGOTAMINE] unknown) Allergy (Unknown, Verified 10/20/22 10:31) (unknown) (no (unknown) (unknown) diphenhydramine (units (unknown) date) [DIPHENHYDRAMINE] unknown) Allergy (Unknown, Verified 10/20/22) (unknown) (no (unknown) (unknown) frovatriptan (units (u nknown) date) [FROVATRIPTAN] unknown) Allergy (Unknown, Verified 10/20/22) (unknown) (no (unknown) (unknown) have occurred. If (units (unknown) date) there are any unknown) questions, please contact the Medical Records (unknown) (no (unknown) (unknown) hydroxyzine (units (un known) date) [HYDROXYZINE] Allergy unknown) (Unknown, Verified 10/20/22) (unknown) (no (unknown) (unknown) ibuprofen (units (unkn own) date) [IBUPROFEN] Allergy unknown) (Unknown, Verified 10/20/22) (unknown) (no (unknown) (unknown) latex [LATEX] (units ( unknown) date) Allergy (Unknown, unknown) Verified 10/20/22) (unknown) (no (unknown) (unknown) may occur. (units (unk nown) date) Occasional wrong-word unknown) or 'sound-alike' substitutions may have (unknown) (no (unknown) (unknown) metoclopramide (units (unknown) date) [METOCLOPRAMIDE] unknown) Allergy (Unknown, Verified 10/20/22) (unknown) (no (unknown) (unknown) nortriptyline (units ( unknown) date) [NORTRIPTYLINE] unknown) Allergy (Unknown, Verified 10/20/22) (unknown) (no (unknown) (unknown) occurred due to the (unit s (unknown) date) inherent limitations unknown) of voice recognition software. Please (unknown) (no (unknown) (unknown) prasterone (DHEA) (units (unknown) date) [PRASTERONE (DHEA)] unknown) Allergy (Unknown, Verified 10/20/22:) (unknown) (no (unknown) (unknown) prednisone (units (unk nown) date) [PREDNISONE] Allergy unknown) (Unknown, Verified 10/20/22) (unknown) (no (unknown) (unknown) prochlorperazine (units (unknown) date) [From COMPAZINE] unknown) Allergy (Unknown, Verified 10/20/22 10:) (unknown) (no (unknown) (unknown) promethazine [From (units (unknown) date) PHENERGAN] Allergy unknown) (Unknown, Verified 10/20/22 10:) (unknown) (no (unknown) (unknown) read the note (units ( unknown) date) carefully and unknown) recognize, using context, where these substitutions (unknown) (no (unknown) (unknown) rizatriptan (units (un known) date) [RIZATRIPTAN] Allergy unknown) (Unknown, Verified 10/20/22 10:) (unknown) (no (unknown) (unknown) software. Although (units (unknown) date) every effort is made unknown) to edit content, plastic block boiler reliner errors (unknown) (no (unknown) (unknown) sumatriptan (units (un known) date) [SUMATRIPTAN] Allergy unknown) (Unknown, Verified 10/20/22 10:) (unknown) (no (unknown) (unknown) tetracaine (units (unk nown) date) [TETRACAINE] Allergy unknown) (Unknown, Verified 10/20/22 10:) (unknown) (no (unknown) (unknown) topiramate [From (units (unknown) date) TOPAMAX] Allergy unknown) (Unknown, Verified 10/20/22 10:) (unknown) (no (unknown) (unknown) typographical errors (uni ts (unknown) date) as a result. unknown) (unknown) (no (unknown) (unknown) valproic acid (units ( unknown) date) [VALPROIC ACID] unknown) Allergy (Unknown, Verified 10/20/22 10:) (unknown) (no (unknown) (unknown) vancomycin (units (unk nown) date) [VANCOMYCIN] Allergy unknown) (Unknown, Verified 10/20/22 10:31) (unknown) (no (unknown) (unknown) verapamil (units (unkn own) date) [VERAPAMIL] Allergy unknown) (Unknown, Verified 10/20/22 10:) Result panel 156 (unknown) (no (unknown) (unknown) (no value) (units (unk nown) date) unknown) (unknown) (no (unknown) (unknown) - Vomiting, (units (un known) date) unspecified unknown) (unknown) (no (unknown) (unknown) 10/20/22 (units (unkno wn) date) unknown) (unknown) (no (unknown) (unknown) 10:31) (units (unkno wn) date) unknown) (unknown) (no (unknown) (unknown) 10:44 (units (unkno wn) date) unknown) (unknown) (no (unknown) (unknown) 1st. (units (unkno wn) date) unknown) (unknown) (no (unknown) (unknown) 37 year old female (units (unknown) date) presents to clinic unknown) for coughing up blood x since september (unknown) (no (unknown) (unknown) Age/Sex: 37 / F Date (uni ts (unknown) date) of Service: unknown) (unknown) (no (unknown) (unknown) Allergies (units (unkn own) date) unknown) (unknown) (no (unknown) (unknown) Allergies: Reviewed (unit s (unknown) date) unknown) (unknown) (no (unknown) (unknown) [place] [address] (unit s (unknown) date) unknown) (unknown) (no [...] Attending Dr: Lizz (units (unknown) date) Dar ZieglerOAkua unknown) (unknown) (no (unknown) (unknown) BLISTERS AT SITE (units (unknown) date) unknown) (unknown) (no (unknown) (unknown) BMI 27.1 (units (unkno wn) date) unknown) (unknown) (no (unknown) (unknown) BP 112/78 (units (unkn own) date) unknown) (unknown) (no (unknown) (unknown) Blood Pressure (units (unknown) date) Location Lt brachial unknown) (unknown) (no (unknown) (unknown) Cardiac arrhythmia (units (unknown) date) unknown) (unknown) (no (unknown) (unknown) Cardiovascular: (units (unknown) date) Negative.? unknown) (unknown) (no (unknown) (unknown) Cervical cyst (units ( unknown) date) unknown) (unknown) (no (unknown) (unknown) Chicken pox (units (un known) date) unknown) (unknown) (no (unknown) (unknown) Chief Complaint: (units (unknown) date) coughing up blood unknown) (unknown) (no (unknown) (unknown) Complete Blood Count (uni ts (unknown) date) AUTO DIFF Today R10.9 unknown) - Unspecified abdominal pain, R11.10 (unknown) (no (unknown) (unknown) Comprehensive (units ( unknown) date) Metabolic Panel Today unknown) R10.9 - Unspecified abdominal pain, R11.10 (unknown) (no (unknown) (unknown) Constitutional: (units (unknown) date) Negative.? unknown) (unknown) (no (unknown) (unknown) : 1985 (units (unknown) date) Acct:[id number] unknown) (unknown) (no (unknown) (unknown) Depression (units (unk nown) date) unknown) (unknown) (no (unknown) (unknown) Dept at (units (unkno wn) date) . unknown) (unknown) (no (unknown) (unknown) Documented By: (units (unknown) date) Lizz Dodge 10/20/22 unknown) 1030 (unknown) (no (unknown) (unknown) Draft (units (unkno wn) date) unknown) (unknown) (no (unknown) (unknown) Endocrine: (units (unk nown) date) Negative.? unknown) (unknown) (no (unknown) (unknown) Endometriosis (units [...] unknown) date) unknown) (unknown) (no (unknown) (unknown) Gastrointestinal: (units (unknown) date) Negative.? unknown) (unknown) (no (unknown) (unknown) Genitourinary: (units (unknown) date) Negative.? unknown) (unknown) (no (unknown) (unknown) Grandfather (uni [...] date) unknown) (unknown) (no (unknown) (unknown) Height 5 ft 11 in (units (unknown) date) unknown) (unknown) (no (unknown) (unknown) Hemorrhoid [...] hernia repair unknown) (unknown) (no (unknown) (unknown) I reviewed the (units (unknown) date) patient's Past unknown) Medical History, Problem List, Medications and (unknown) (no (unknown) (unknown) Intake Note: (units [...] wn) date) unknown) (unknown) (no (unknown) (unknown) [id number] (units (unk nown) date) unknown) (unknown) (no (unknown) (unknown) Medical History (units (unknown) date) (Updated 07/07/21 @ unknown) 21:03 by Jovita Pham) (unknown) (no (unknown) (unknown) Medications: (units (u nknown) date) Reconciled unknown) (unknown) (no (unknown) (unknown) Mental health (units ( unknown) date) problem unknown) (unknown) (no (unknown) (unknown) Migraines (units (unkn own) date) unknown) (unknown) (no (unknown) (unknown) Mother (units (unknown) date) Cancer unknown) (unknown) (no (unknown) (unknown) Neurological: (units ( unknown) date) Negative.? unknown) (unknown) (no (unknown) (unknown) Note (units (unkno wn) date) unknown) (unknown) (no (unknown) (unknown) Note: (units (unkno wn) date) unknown) (unknown) (no (unknown) (unknown) Notes (units (unkno wn) date) unknown) (unknown) (no (unknown) (unknown) Objective: (units (unk nown) date) unknown) (unknown) (no (unknown) (unknown) Orders [...] ts (unknown) date) Allergy (Mild, unknown) Uncoded 10/20/22 10:31) (unknown) (no (unknown) (unknown) POC Urine (unit s (unknown) date) Test Today R10.9 - unknown) Unspecified abdominal pain, R11.10 (unknown) (no (unknown) (unknown) PTSD (post-traumatic (uni ts (unknown) date) stress disorder) unknown) (unknown) (no (unknown) (unknown) Painful menstrual (units (unknown) date) periods unknown) (unknown) (no (unknown) (unknown) Patient: (units (unkno wn) date) Bibi Arreola W unknown) MR#: (unknown) (no (unknown) (unknown) Position Sitting (units (unknown) date) unknown) (unknown) (no (unknown) (unknown) Pulse 112 H (units (un known) date) unknown) (unknown) (no (unknown) (unknown) Pulse Oximetry (%) (units (unknown) date) 96 unknown) (unknown) (no (unknown) (unknown) Pulse Source Monitor (uni ts (unknown) date) unknown) (unknown) (no (unknown) (unknown) Reason For Visit (units (unknown) date) unknown) (unknown) (no (unknown) (unknown) Respiratory: (units (u nknown) date) Negative.? unknown) (unknown) (no (unknown) (unknown) Review of Systems: (units (unknown) date) unknown) (unknown) (no (unknown) (unknown) Ruptured tympanic (units (unknown) date) membrane unknown) (unknown) (no (unknown) (unknown) Shoulder pain (units ( unknown) date) () unknown) (unknown) (no (unknown) (unknown) Signed By: (units (unk nown) date) unknown) (unknown) (no (unknown) (unknown) Smoking Status: (units (unknown) date) Former smoker unknown) (unknown) (no (unknown) (unknown) Social History (units (unknown) date) (including tobacco unknown) use status). (unknown) (no (unknown) (unknown) Stroke (units (unkno wn) date) unknown) (unknown) (no (unknown) (unknown) Subjective: (units (un known) date) unknown) (unknown) (no (unknown) (unknown) Surgical History (units (unknown) date) (Updated 07/07/21 @ unknown) 21:03 by Jovita Pham) (unknown) (no (unknown) (unknown) TIA (transient (units (unknown) date) ischemic attack) unknown) (unknown) (no (unknown) (unknown) Temp 97.5 F L (units ( unknown) date) unknown) (unknown) (no (unknown) (unknown) Temp [...] (unknown) (unknown) Visit Reasons: (units (unknown) date) vomiting, coughing 03 unknown) (unknown) (no (unknown) (unknown) Vital Signs: (units (u nknown) date) Reviewed unknown) (unknown) (no (unknown) (unknown) Vitals (units (unkno wn) date) unknown) (unknown) (no (unknown) (unknown) Voice recognition (units (unknown) date) software was used in unknown) the creation of this note. There may be (unknown) (no (unknown) (unknown) Vomiting, (units (unkn own) date) unspecified unknown) (unknown) (no (unknown) (unknown) Weight 195 lb (units ( unknown) date) unknown) (unknown) (no (unknown) (unknown) [] (units (unkno wn) date) unknown) (unknown) (no (unknown) (unknown) acetaminophen (units ( unknown) date) [ACETAMINOPHEN] unknown) Allergy (Unknown, Verified 10/20/22 10:31) (unknown) (no (unknown) (unknown) adhesive [ADHESIVE] (unit s (unknown) date) Allergy (Unknown, unknown) Verified 10/20/22 10:31) (unknown) (no (unknown) (unknown) amitriptyline (units ( unknown) date) [AMITRIPTYLINE] unknown) Allergy (Unknown, Verified 10/20/22 10:31) (unknown) (no (unknown) (unknown) aspirin [ASPIRIN] (units (unknown) date) Allergy (Unknown, unknown) Verified 10/20/22 10:31) (unknown) (no (unknown) (unknown) benzocaine (units (unk nown) date) [BENZOCAINE] Allergy unknown) (Unknown, Verified 10/20/22 10:31) (unknown) (no (unknown) (unknown) butamben [From (units (unknown) date) CETACAINE] Allergy unknown) (Unknown, Verified 10/20/22 10:31) (unknown) (no (unknown) (unknown) dexamethasone (units ( unknown) date) [DEXAMETHASONE] unknown) Allergy (Unknown, Verified 10/20/22 10:31) (unknown) (no (unknown) (unknown) dicloxacillin (units ( unknown) date) [DICLOXACILLIN] unknown) Allergy (Unknown, Verified 10/20/22 10:31) (unknown) (no (unknown) (unknown) dihydroergocristine (unit s (unknown) date) [DIHYDROERGOCRISTINE] unknown) Allergy (Unknown, Verified 10/20/22 (unknown) (no (unknown) (unknown) dihydroergotamine (units (unknown) date) [DIHYDROERGOTAMINE] unknown) Allergy (Unknown, Verified 10/20/22 10:31) (unknown) (no (unknown) (unknown) diphenhydramine (units (unknown) date) [DIPHENHYDRAMINE] unknown) Allergy (Unknown, Verified 10/20/22 10:31) (unknown) (no (unknown) (unknown) frovatriptan (units (u nknown) date) [FROVATRIPTAN] unknown) Allergy (Unknown, Verified 10/20/22 10:) (unknown) (no (unknown) (unknown) have occurred. If (units (unknown) date) there are any unknown) questions, please contact the Medical Records (unknown) (no (unknown) (unknown) hydroxyzine (units (un known) date) [HYDROXYZINE] Allergy unknown) (Unknown, Verified 10/20/22 10:31) (unknown) (no (unknown) (unknown) ibuprofen (units (unkn own) date) [IBUPROFEN] Allergy unknown) (Unknown, Verified 10/20/22 10:31) (unknown) (no (unknown) (unknown) latex [LATEX] (units ( unknown) date) Allergy (Unknown, unknown) Verified 10/20/22 10:31) (unknown) (no (unknown) (unknown) may occur. (units (unk nown) date) Occasional wrong-word unknown) or 'sound-alike' substitutions may have (unknown) (no (unknown) (unknown) metoclopramide (units (unknown) date) [METOCLOPRAMIDE] unknown) Allergy (Unknown, Verified 10/20/22 10:31) (unknown) (no (unknown) (unknown) nortriptyline (units ( unknown) date) [NORTRIPTYLINE] unknown) Allergy (Unknown, Verified 10/20/22 10:31) (unknown) (no (unknown) (unknown) occurred due to the (unit s (unknown) date) inherent limitations unknown) of voice recognition software. Please (unknown) (no (unknown) (unknown) prasterone (DHEA) (units (unknown) date) [PRASTERONE (DHEA)] unknown) Allergy (Unknown, Verified 10/20/22 10:31) (unknown) (no (unknown) (unknown) prednisone (units (unk nown) date) [PREDNISONE] Allergy unknown) (Unknown, Verified 10/20/22 10:31) (unknown) (no (unknown) (unknown) prochlorperazine (units (unknown) date) [From COMPAZINE] unknown) Allergy (Unknown, Verified 10/20/22 10:31) (unknown) (no (unknown) (unknown) promethazine [From (units (unknown) date) PHENERGAN] Allergy unknown) (Unknown, Verified 10/20/22 10:31) (unknown) (no (unknown) (unknown) read the note (units ( unknown) date) carefully and unknown) recognize, using context, where these substitutions (unknown) (no (unknown) (unknown) rizatriptan (units (un known) date) [RIZATRIPTAN] Allergy unknown) (Unknown, Verified 10/20/22 10:31) (unknown) (no (unknown) (unknown) software. 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 unknown) (unknown) (no (unknown) (unknown) valproic acid (units ( unknown) date) [VALPROIC ACID] unknown) Allergy (Unknown, Verified 10/20/22 10:31) (unknown) (no (unknown) (unknown) vancomycin (units (unk nown) date) [VANCOMYCIN] Allergy unknown) (Unknown, Verified 10/20/22 10:31) (unknown) (no (unknown) (unknown) verapamil (units (unkn own) date) [VERAPAMIL] Allergy unknown) (Unknown, Verified 10/20/22 10:31) Result panel 157 (unknown) (no (unknown) (unknown) (no value) (units (unk nown) date) unknown) (unknown) (no (unknown) (unknown) ##20 10/08/17 [Rx (units (unknown) date) Confirmed 10/20/22] unknown) (unknown) (no (unknown) (unknown) (1) Hemoptysis: (units (unknown) date) unknown) (unknown) (no (unknown) (unknown) (2) Chronic cough: (units (unknown) date) unknown) (unknown) (no (unknown) (unknown) - Vomiting, (units (un known) date) unspecified unknown) (unknown) (no (unknown) (unknown) -continue supportive (uni ts (unknown) date) care. She does have unknown) Zofran and cough medicines for (unknown) (no (unknown) (unknown) -labs today (units (un known) date) unknown) (unknown) (no (unknown) (unknown) -patient was late (units (unknown) date) for her original unknown) appointment. I agreed to see her quickly to (unknown) (no (unknown) (unknown) -referral placed for (uni ts (unknown) date) GI and pulmonology unknown) evaluation as well. (unknown) (no (unknown) (unknown) -reviewed her chest (unit s (unknown) date) CT which was normal. unknown) Reassured her that the likelihood she (unknown) (no (unknown) (unknown) -she does have an (units (unknown) date) appointment with ENT unknown) for further evaluation (unknown) (no (unknown) (unknown) -to the ER for (units (unknown) date) worsening symptoms, unknown) any other concerns. Follow up with her PCP (unknown) (no (unknown) (unknown) 10/20/22 (units (unkno wn) date) unknown) (unknown) (no (unknown) (unknown) 10/20/22] (units (unkn own) date) unknown) (unknown) (no (unknown) (unknown) 05/26/21 [History (units (unknown) date) Confirmed 10/20/22] unknown) (unknown) (no (unknown) (unknown) 10:31) (units (unkno wn) date) unknown) (unknown) (no (unknown) (unknown) 10:44 (units (unkno wn) date) unknown) (unknown) (no (unknown) (unknown) 1st. (units (unkno wn) date) unknown) (unknown) (no (unknown) (unknown) 37 year old female (units (unknown) date) presents to clinic unknown) for coughing up blood x since september (unknown) (no (unknown) (unknown) Age/Sex: 37 / F Date (uni ts (unknown) date) of Service: unknown) (unknown) (no (unknown) (unknown) Allergies (units (unkn own) date) unknown) (unknown) (no (unknown) (unknown) Allergies: Reviewed (unit s (unknown) date) unknown) (unknown) (no (unknown) (unknown) [place] [address] (unit s (unknown) date) unknown) (unknown) (no [...] Attending Dr: Lizz (units (unknown) date) Dar ZieglerOAkua unknown) (unknown) (no (unknown) (unknown) BLISTERS AT SITE (units (unknown) date) unknown) (unknown) (no (unknown) (unknown) BMI 27.1 (units (unkno wn) date) unknown) (unknown) (no (unknown) (unknown) BP 112/78 (units (unkn own) date) unknown) (unknown) (no (unknown) (unknown) Blood Pressure (units (unknown) date) Location Lt brachial unknown) (unknown) (no (unknown) (unknown) CARDIAC: Regular (units (unknown) date) rate and rhythm. S1, unknown) S2 normal, no murmur.? No edema. (unknown) (no (unknown) (unknown) CHEST: Normal (units ( unknown) date) respiratory effort unknown) (unknown) (no (unknown) (unknown) Cardiac arrhythmia (units (unknown) date) unknown) (unknown) (no (unknown) (unknown) Cardiovascular: (units (unknown) date) Negative.? unknown) (unknown) (no (unknown) (unknown) Cervical cyst (units ( unknown) date) unknown) (unknown) (no (unknown) (unknown) Chicken pox (units (un known) date) unknown) (unknown) (no (unknown) (unknown) Chief Complaint: (units (unknown) date) coughing up blood unknown) (unknown) (no (unknown) (unknown) Complete Blood Count (uni ts (unknown) date) AUTO DIFF Today R10.9 unknown) - Unspecified abdominal pain, R11.10 (unknown) (no (unknown) (unknown) Comprehensive (units ( unknown) date) Metabolic Panel Today unknown) R10.9 - Unspecified abdominal pain, R11.10 (unknown) (no (unknown) (unknown) Confirmed 10/20/22] (unit s (unknown) date) unknown) (unknown) (no (unknown) (unknown) Constitutional: (units (unknown) date) Negative.? unknown) (unknown) (no (unknown) (unknown) : 1985 (units (unknown) date) Acct:[id number] unknown) (unknown) (no (unknown) (unknown) Depression (units (unk nown) date) unknown) (unknown) (no (unknown) (unknown) Dept at (units (unkno wn) date) . unknown) (unknown) (no (unknown) (unknown) Documented By: (units (unknown) date) Lizz Dodge 10/20/22 unknown) 1030 (unknown) (no (unknown) (unknown) Draft (units (unkno wn) date) unknown) (unknown) (no (unknown) (unknown) EYES: PERRL, EOMI (units (unknown) date) and nonicteric unknown) (unknown) (no (unknown) (unknown) Endocrine: (units (unk nown) date) Negative.? unknown) (unknown) (no (unknown) (unknown) Endometriosis (units [...] own) date) unknown) (unknown) (no (unknown) (unknown) GENERAL: Well (units ( unknown) date) developed, well unknown) nourished.? Cooperative with exam.? Patient is in (unknown) (no (unknown) (unknown) GI bleeding (units (un known) date) unknown) (unknown) (no (unknown) (unknown) Gastric ulcer (units ( unknown) date) unknown) (unknown) (no (unknown) (unknown) Genitourinary: (units (unknown) date) Negative.? unknown) (unknown) (no (unknown) (unknown) Grandfather (uni ts (unknown) date) Stroke unknown) (unknown) (no (unknown) (unknown) Grandmother Breast (units (unknown) date) cancer unknown) (unknown) (no (unknown) (unknown) Grandmother (uni ts (unknown) date) Stroke unknown) (unknown) (no (unknown) (unknown) HEAD: Atraumatic, (units (unknown) date) Normocephalic unknown) (unknown) (no (unknown) (unknown) Headache (units (unkno wn) date) unknown) (unknown) (no (unknown) (unknown) Health Management (units (unknown) date) reviewed with unknown) patient: Yes (unknown) (no (unknown) (unknown) Health Management (units (unknown) date) unknown) (unknown) (no (unknown) (unknown) Hearing loss (units (u nknown) date) unknown) (unknown) (no (unknown) (unknown) Height 5 ft 11 in (units (unknown) date) unknown) (unknown) (no (unknown) (unknown) Hemorrhoid [...] hernia repair unknown) (unknown) (no (unknown) (unknown) I reviewed the (units (unknown) date) patient's Past unknown) Medical History, Problem List, Medications and (unknown) (no (unknown) (unknown) Intake Note: (units [...] unknown) date) unknown) (unknown) (no (unknown) (unknown) LUNGS: Clear all (units (unknown) date) lung echevarria, unknown) Bilaterally (unknown) (no (unknown) (unknown) Loc: [facility] (units (unkno wn) date) unknown) (unknown) (no (unknown) (unknown) [id number] (units (unk nown) date) unknown) (unknown) (no (unknown) (unknown) MUSKULOSKELETAL: (units (unknown) date) Normal gait. unknown) (unknown) (no (unknown) (unknown) Medical History (units (unknown) date) (Updated 07/07/21 @ unknown) 21:03 by Jovita Pham) (unknown) (no (unknown) (unknown) Medications (units (un known) date) unknown) (unknown) (no (unknown) (unknown) Medications: (units (u nknown) date) Reconciled unknown) (unknown) (no (unknown) (unknown) Mental health (units ( unknown) date) problem unknown) (unknown) (no (unknown) (unknown) Migraines (units (unkn own) date) unknown) (unknown) (no (unknown) (unknown) Mother (units (unknown) date) Cancer unknown) (unknown) (no (unknown) (unknown) NECK: Full range of (unit s (unknown) date) motion, unknown) lymphadenopathy absent, supple (unknown) (no (unknown) (unknown) NEURO EXAM: Alert (units (unknown) date) and oriented x 3.? unknown) (unknown) (no (unknown) (unknown) Neurological: (units ( unknown) date) Negative.? unknown) (unknown) (no (unknown) (unknown) Note (units (unkno wn) date) unknown) (unknown) (no (unknown) (unknown) Note: (units (unkno wn) date) unknown) (unknown) (no (unknown) (unknown) Notes (units (unkno wn) date) unknown) (unknown) (no (unknown) (unknown) Objective: (units (unk nown) date) unknown) (unknown) (no (unknown) (unknown) Orders [...] ts (unknown) date) Allergy (Mild, unknown) Uncoded 10/20/22 10:31) (unknown) (no (unknown) (unknown) POC Urine (unit s (unknown) date) Test Today R10.9 - unknown) Unspecified abdominal pain, R11.10 (unknown) (no (unknown) (unknown) PSYCH: judgement (units (unknown) date) normal, orientation unknown) normal, affect/mood normal and memory (unknown) (no (unknown) (unknown) PTSD (post-traumatic (uni ts (unknown) date) stress disorder) unknown) (unknown) (no (unknown) (unknown) Painful menstrual (units (unknown) date) periods unknown) (unknown) (no (unknown) (unknown) Patient states that (unit s (unknown) date) she is been having unknown) esophageal spasms for years. She is had (unknown) (no (unknown) (unknown) Patient: (units (unkno wn) date) MaxwellBibi unknown) MR#: (unknown) (no (unknown) (unknown) Plan (units (unkno wn) date) unknown) (unknown) (no (unknown) (unknown) Position Sitting (units (unknown) date) unknown) (unknown) (no (unknown) (unknown) Pulse 112 H (units (un known) date) unknown) (unknown) (no (unknown) (unknown) Pulse Oximetry (%) (units (unknown) date) 96 unknown) (unknown) (no (unknown) (unknown) Pulse Source Monitor (uni ts (unknown) date) unknown) (unknown) (no (unknown) (unknown) Reason For Visit (units (unknown) date) unknown) (unknown) (no (unknown) (unknown) Referral (units (unkno wn) date) Gastroenterology unknown) R04.2 - Hemoptysis (unknown) (no (unknown) (unknown) Referral Pulmonology (uni ts (unknown) date) R05.3 - Chronic cough unknown) (unknown) (no (unknown) (unknown) Referrals (units (unkn own) date) unknown) (unknown) (no (unknown) (unknown) Review of Systems: (units (unknown) date) unknown) (unknown) (no (unknown) (unknown) Ruptured tympanic (units (unknown) date) membrane unknown) (unknown) (no (unknown) (unknown) SKIN:? No rashes on (unit s (unknown) date) face or arms. unknown) (unknown) (no (unknown) (unknown) Shoulder pain (units ( unknown) date) () unknown) (unknown) (no (unknown) (unknown) Signed By: (units (unk nown) date) unknown) (unknown) (no (unknown) (unknown) Smoking Status: (units (unknown) date) Former smoker unknown) (unknown) (no (unknown) (unknown) Social History (units (unknown) date) (including tobacco unknown) use status). (unknown) (no (unknown) (unknown) Stroke (units (unkno wn) date) unknown) (unknown) (no (unknown) (unknown) Subjective: (units (un known) date) unknown) (unknown) (no (unknown) (unknown) Surgical History (units (unknown) date) (Updated 07/07/21 @ unknown) 21:03 by Jovita Pham) (unknown) (no (unknown) (unknown) TIA (transient (units (unknown) date) ischemic attack) unknown) (unknown) (no (unknown) (unknown) Temp 97.5 F L (units ( unknown) date) unknown) (unknown) (no (unknown) (unknown) Temp [...] (unknown) (unknown) Visit Reasons: (units (unknown) date) vomiting, coughing 03 unknown) (unknown) (no (unknown) (unknown) Vital Signs: (units (u nknown) date) Reviewed unknown) (unknown) (no (unknown) (unknown) Vitals (units (unkno wn) date) unknown) (unknown) (no (unknown) (unknown) Voice recognition (units (unknown) date) software was used in unknown) the creation of this note. There may be (unknown) (no (unknown) (unknown) Vomiting, (units (unkn own) date) unspecified unknown) (unknown) (no (unknown) (unknown) Weight 195 lb (units ( unknown) date) unknown) (unknown) (no (unknown) (unknown) Yesterday she (units ( unknown) date) developed some nausea unknown) and vomiting and diarrhea as well. She is (unknown) (no (unknown) (unknown) [History Confirmed (units (unknown) date) 10/20/22] unknown) (unknown) (no (unknown) (unknown) a chronic cough (units (unknown) date) since early September. unknown) She states that she is also been coughing (unknown) (no (unknown) (unknown) acetaminophen (units ( unknown) date) [ACETAMINOPHEN] unknown) Allergy (Unknown, Verified 10/20/22 10:31) (unknown) (no (unknown) (unknown) adhesive [ADHESIVE] (unit s (unknown) date) Allergy (Unknown, unknown) Verified 10/20/22 10:31) (unknown) (no (unknown) (unknown) afraid to follow up (unit s (unknown) date) with the specialty unknown) referrals because her ex [id number] (unknown) (no (unknown) (unknown) albuterol sulfate 90 (uni ts (unknown) date) mcg/actuation aerosol unknown) inhaler 2 puff inhalation Q6H PRN (unknown) (no (unknown) (unknown) amitriptyline (units ( unknown) date) [AMITRIPTYLINE] unknown) Allergy (Unknown, Verified 10/20/22 10:31) (unknown) (no (unknown) (unknown) aspirin [ASPIRIN] (units (unknown) date) Allergy (Unknown, unknown) Verified 10/20/22 10:31) (unknown) (no (unknown) (unknown) at this point. She (units (unknown) date) is also concerned unknown) because she is had 10 episodes of (unknown) (no (unknown) (unknown) benzocaine (units (unk nown) date) [BENZOCAINE] Allergy unknown) (Unknown, Verified 10/20/22 10:31) (unknown) (no (unknown) (unknown) benzonatate 100 mg (units (unknown) date) capsule 100 mg PO unknown) BID-TID PRN cough #60 caps 10/12/22 [Rx (unknown) (no (unknown) (unknown) biotin 1 mg capsule (unit s (unknown) date) 1 mg PO DAILY unknown) 05/26/21 [History Confirmed 10/20/22] (unknown) (no (unknown) (unknown) butamben [From (units (unknown) date) CETACAINE] Allergy unknown) (Unknown, Verified 10/20/22 10:31) (unknown) (no (unknown) (unknown) cholecalciferol (units (unknown) date) (vitamin D3) 250 mcg unknown) (10,000 unit) capsule 250 mcg PO DAILY (unknown) (no (unknown) (unknown) clonazepam 1 mg (units (unknown) date) tablet 1 - 2 mg PO unknown) BID 05/26/21 [History Confirmed 10/20/22] (unknown) (no (unknown) (unknown) codeine 10 (units (unk nown) date) mg-guaifenesin 100 unknown) mg/5 mL oral liquid 10 ml PO Q4-6H PRN cough #120 (unknown) (no (unknown) (unknown) dexamethasone (units ( unknown) date) [DEXAMETHASONE] unknown) Allergy (Unknown, Verified 10/20/22 10:31) (unknown) (no (unknown) (unknown) dextroamphetamine-am (uni ts (unknown) date) phetamine 10 mg unknown) tablet (Adderall) 20 mg PO BID #0 tabs (unknown) (no (unknown) (unknown) dicloxacillin (units ( unknown) date) [DICLOXACILLIN] unknown) Allergy (Unknown, Verified 10/20/22 10:31) (unknown) (no (unknown) (unknown) dihydroergocristine (unit s (unknown) date) [DIHYDROERGOCRISTINE] unknown) Allergy (Unknown, Verified 10/20/22 (unknown) (no (unknown) (unknown) dihydroergotamine (units (unknown) date) [DIHYDROERGOTAMINE] unknown) Allergy (Unknown, Verified 10/20/22 10:31) (unknown) (no (unknown) (unknown) diphenhydramine (units (unknown) date) [DIPHENHYDRAMINE] unknown) Allergy (Unknown, Verified 10/20/22 10:31) (unknown) (no (unknown) (unknown) epinephrine 0.3 (units (unknown) date) mg/0.3 mL injection, unknown) auto-injector 0.3 mg IM ONCE 05/26/21 (unknown) (no (unknown) (unknown) frovatriptan (units (u nknown) date) [FROVATRIPTAN] unknown) Allergy (Unknown, Verified 10/20/22 10:31) (unknown) (no (unknown) (unknown) had esophageal (units (unknown) date) cancer. She denies unknown) any weight loss. She is not using her NSAIDs (unknown) (no (unknown) (unknown) has a esophageal (units (unknown) date) cancer is low at this unknown) point. (unknown) (no (unknown) (unknown) have occurred. If (units (unknown) date) there are any unknown) questions, please contact the Medical Records (unknown) (no (unknown) (unknown) hydroxyzine (units (un known) date) [HYDROXYZINE] Allergy unknown) (Unknown, Verified 10/20/22 10:31) (unknown) (no (unknown) (unknown) ibuprofen (units (unkn own) date) [IBUPROFEN] Allergy unknown) (Unknown, Verified 10/20/22 10:31) (unknown) (no (unknown) (unknown) issues since she was (uni ts (unknown) date) double booked. She unknown) will have to schedule an appointment (unknown) (no (unknown) (unknown) latex [LATEX] (units ( unknown) date) Allergy (Unknown, unknown) Verified 10/20/22 10:31) (unknown) (no (unknown) (unknown) mL 10/18/22 [Rx (units (unknown) date) Confirmed 10/20/22] unknown) (unknown) (no (unknown) (unknown) magnesium glycinate (unit s (unknown) date) 100 mg tablet 100 mg unknown) PO DAILY 05/26/21 [History Confirmed (unknown) (no (unknown) (unknown) make sure she was (units (unknown) date) stable. I advised her unknown) that I can not addressed all of her (unknown) (no (unknown) (unknown) may occur. (units (unk nown) date) Occasional wrong-word unknown) or 'sound-alike' substitutions may have (unknown) (no (unknown) (unknown) medications for her (unit s (unknown) date) cough. She is a unknown) former smoker. She states that she is been (unknown) (no (unknown) (unknown) melatonin 10 mg (units (unknown) date) capsule 10 mg PO unknown) BEDTIME PRN 05/26/21 [History Confirmed (unknown) (no (unknown) (unknown) meloxicam 7.5 mg (units (unknown) date) tablet (Mobic) 15 mg unknown) PO [facility] 05/26/21 [History Confirmed (unknown) (no (unknown) (unknown) metoclopramide (units (unknown) date) [METOCLOPRAMIDE] unknown) Allergy (Unknown, Verified 10/20/22 10:31) (unknown) (no (unknown) (unknown) multiple times. She (unit s (unknown) date) states that her unknown) esophagus or trachea was perforated at 1 (unknown) (no (unknown) (unknown) no apparent (units (un known) date) distress. unknown) (unknown) (no (unknown) (unknown) normal (units (unkno wn) date) unknown) (unknown) (no (unknown) (unknown) nortriptyline (units ( unknown) date) [NORTRIPTYLINE] unknown) Allergy (Unknown, Verified 10/20/22 10:31) (unknown) (no (unknown) (unknown) occurred due to the (unit s (unknown) date) inherent limitations unknown) of voice recognition software. Please (unknown) (no (unknown) (unknown) ondansetron 8 mg (units (unknown) date) disintegrating tablet unknown) (Zofran ODT) 8 mg sublingual Q6HP PRN (unknown) (no (unknown) (unknown) otherwise. (units (unk nown) date) unknown) (unknown) (no (unknown) (unknown) oxycodone 10 mg (units (unknown) date) tablet 10 mg PO Q4H unknown) PRN 05/26/21 [History Confirmed 10/20/22] (unknown) (no (unknown) (unknown) point when they (units (unknown) date) extubated her. unknown) (unknown) (no (unknown) (unknown) prasterone (DHEA) (units (unknown) date) [PRASTERONE (DHEA)] unknown) Allergy (Unknown, Verified 10/20/22 10:31) (unknown) (no (unknown) (unknown) prednisone (units (unk nown) date) [PREDNISONE] Allergy unknown) (Unknown, Verified 10/20/22 10:31) (unknown) (no (unknown) (unknown) pregabalin 100 mg (units (unknown) date) capsule (Lyrica) 200 unknown) mg PO BID 05/26/21 [History Confirmed (unknown) (no (unknown) (unknown) prochlorperazine (units (unknown) date) [From COMPAZINE] unknown) Allergy (Unknown, Verified 10/20/22 10:31) (unknown) (no (unknown) (unknown) promethazine [From (units (unknown) date) PHENERGAN] Allergy unknown) (Unknown, Verified 10/20/22 10:31) (unknown) (no (unknown) (unknown) read the note (units ( unknown) date) carefully and unknown) recognize, using context, where these substitutions (unknown) (no (unknown) (unknown) rimegepant 75 mg (units (unknown) date) disintegrating tablet unknown) (Nurtec ODT) 75 mg PO ONCE PRN 05/26/21 (unknown) (no (unknown) (unknown) rizatriptan (units (un known) date) [RIZATRIPTAN] Allergy unknown) (Unknown, Verified 10/20/22 10:31) (unknown) (no (unknown) (unknown) shortness of breath (unit s (unknown) date) or wheezing #8.5 unknown) grams 10/10/22 [Rx Confirmed 10/20/22] (unknown) (no (unknown) (unknown) software. 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 (unit s (unknown) date) unknown) (unknown) (no (unknown) (unknown) taking Zofran as (units (unknown) date) needed. She is taking unknown) over the counter and prescription (unknown) (no (unknown) (unknown) temazepam 30 mg (units (unknown) date) capsule 30 mg PO unknown) BEDTIME PRN 05/26/21 [History Confirmed (unknown) (no (unknown) (unknown) tetracaine (units (unk nown) date) [TETRACAINE] Allergy unknown) (Unknown, Verified 10/20/22 10:31) (unknown) (no (unknown) (unknown) topiramate [From (units (unknown) date) TOPAMAX] Allergy unknown) (Unknown, Verified 10/20/22 10:31) (unknown) (no (unknown) (unknown) typographical errors (uni ts (unknown) date) as a result. unknown) (unknown) (no (unknown) (unknown) unexplained (units (un known) date) respiratory failure. unknown) She states that she has been intubated (unknown) (no (unknown) (unknown) up blood (units (unkno wn) date) intermittently. She unknown) is had a chest CT which was unremarkable. (unknown) (no (unknown) (unknown) valproic acid (units ( unknown) date) [VALPROIC ACID] unknown) Allergy (Unknown, Verified 10/20/22 10:31) (unknown) (no (unknown) (unknown) vancomycin (units (unk nown) date) [VANCOMYCIN] Allergy unknown) (Unknown, Verified 10/20/22 10:31) (unknown) (no (unknown) (unknown) verapamil (units (unkn own) date) [VERAPAMIL] Allergy unknown) (Unknown, Verified 10/20/22 10:31) (unknown) (no (unknown) (unknown) with her primary (units (unknown) date) care provider to unknown) address these chronic issues. (unknown) (no (unknown) (unknown) zinc sulfate 50 mg (units (unknown) date) zinc (220 mg) tablet unknown) 50 mg PO DAILY 05/26/21 [History Result panel 158 (unknown) (no date) (unknown) (unknown) 0 /ul (unkn own) (unknown) (no date) (unknown) (unknown) 0.5 % (unkn own) (unknown) (no date) (unknown) (unknown) 13.1 % (unkn own) (unknown) (no date) (unknown) (unknown) 13.7 g/dl (unkn own) (unknown) (no date) (unknown) (unknown) 184 x10 3/ul (unkn own) (unknown) (no date) (unknown) (unknown) 200 /ul (unkn own) (unknown) (no date) (unknown) (unknown) 2400 /ul (unkn own) (unknown) (no date) (unknown) (unknown) 28.9 pg (unkn own) (unknown) (no date) (unknown) (unknown) 3.7 % (unkn own) (unknown) (no date) (unknown) (unknown) 33.8 % (unkn own) (unknown) (no date) (unknown) (unknown) 3300 /ul (unkn own) (unknown) (no date) (unknown) (unknown) 37.3 % (unkn own) (unknown) (no date) (unknown) (unknown) 4.74 x10 6/ul (unkn own) (unknown) (no date) (unknown) (unknown) 40.5 % (unkn own) (unknown) (no date) (unknown) (unknown) 50.8 % (unkn own) (unknown) (no date) (unknown) (unknown) 500 /ul (unkn own) (unknown) (no date) (unknown) (unknown) 6.5 x10 3/ul (unkn own) (unknown) (no date) (unknown) (unknown) 7.7 % (unkn own) (unknown) (no date) (unknown) (unknown) 85.4 fl (unkn own) Result panel 159 (unknown) (no (unknown) (unknown) (no value) (units (unk nown) date) unknown) (unknown) (no (unknown) (unknown) ##20 10/08/17 [Rx (units (unknown) date) Confirmed 10/20/22] unknown) (unknown) (no (unknown) (unknown) (1) Hemoptysis: (units (unknown) date) unknown) (unknown) (no (unknown) (unknown) (2) Chronic cough: (units (unknown) date) unknown) (unknown) (no (unknown) (unknown) - Vomiting, (units (un known) date) unspecified unknown) (unknown) (no (unknown) (unknown) -continue supportive (uni ts (unknown) date) care. She does have unknown) Zofran and cough medicines for (unknown) (no (unknown) (unknown) -labs today (units (un known) date) unknown) (unknown) (no (unknown) (unknown) -patient was late (units (unknown) date) for her original unknown) appointment. I agreed to see her quickly to (unknown) (no (unknown) (unknown) -referral placed for (uni ts (unknown) date) GI and pulmonology unknown) evaluation as well. (unknown) (no (unknown) (unknown) -reviewed her chest (unit s (unknown) date) CT which was normal. unknown) Reassured her that the likelihood she (unknown) (no (unknown) (unknown) -she does have an (units (unknown) date) appointment with ENT unknown) for further evaluation (unknown) (no (unknown) (unknown) -to the ER for (units (unknown) date) worsening symptoms, unknown) any other concerns. Follow up with her PCP (unknown) (no (unknown) (unknown) 10/20/22 (units (unkno wn) date) unknown) (unknown) (no (unknown) (unknown) 10/20/22] (units (unkn own) date) unknown) (unknown) (no (unknown) (unknown) 05/26/21 [History (units (unknown) date) Confirmed 10/20/22] unknown) (unknown) (no (unknown) (unknown) 10:31) (units (unkno wn) date) unknown) (unknown) (no (unknown) (unknown) 10:44 (units (unkno wn) date) unknown) (unknown) (no (unknown) (unknown) 1st. (units (unkno wn) date) unknown) (unknown) (no (unknown) (unknown) 37 year old female (units (unknown) date) presents to clinic unknown) for coughing up blood x since september (unknown) (no (unknown) (unknown) Age/Sex: 37 / F Date (uni ts (unknown) date) of Service: unknown) (unknown) (no (unknown) (unknown) Allergies (units (unkn own) date) unknown) (unknown) (no (unknown) (unknown) Allergies: Reviewed (unit s (unknown) date) unknown) (unknown) (no (unknown) (unknown) MICHEAL Khan [id number] (unit s (unknown) date) unknown) (unknown) (no [...] Attending Dr: Lizz (units (unknown) date) Dar D.OAkua unknown) (unknown) (no (unknown) (unknown) BLISTERS AT SITE (units (unknown) date) unknown) (unknown) (no (unknown) (unknown) BMI 27.1 (units (unkno wn) date) unknown) (unknown) (no (unknown) (unknown) BP 112/78 (units (unkn own) date) unknown) (unknown) (no (unknown) (unknown) Blood Pressure (units (unknown) date) Location Lt brachial unknown) (unknown) (no (unknown) (unknown) CARDIAC: Regular (units (unknown) date) rate and rhythm. S1, unknown) S2 normal, no murmur.? No edema. (unknown) (no (unknown) (unknown) CHEST: Normal (units ( unknown) date) respiratory effort unknown) (unknown) (no (unknown) (unknown) Cardiac arrhythmia (units (unknown) date) unknown) (unknown) (no (unknown) (unknown) Cardiovascular: (units (unknown) date) Negative.? unknown) (unknown) (no (unknown) (unknown) Cervical cyst (units ( unknown) date) unknown) (unknown) (no (unknown) (unknown) Chicken pox (units (un known) date) unknown) (unknown) (no (unknown) (unknown) Chief Complaint: (units (unknown) date) coughing up blood unknown) (unknown) (no (unknown) (unknown) Complete Blood Count (uni ts (unknown) date) AUTO DIFF Today R10.9 unknown) - Unspecified abdominal pain, R11.10 (unknown) (no (unknown) (unknown) Comprehensive (units ( unknown) date) Metabolic Panel Today unknown) R10.9 - Unspecified abdominal pain, R11.10 (unknown) (no (unknown) (unknown) Confirmed 10/20/22] (unit s (unknown) date) unknown) (unknown) (no (unknown) (unknown) Constitutional: (units (unknown) date) Negative.? unknown) (unknown) (no (unknown) (unknown) : 1985 (units (unknown) date) Acct:[id number] unknown) (unknown) (no (unknown) (unknown) Depression (units (unk nown) date) unknown) (unknown) (no (unknown) (unknown) Dept at (units (unkno wn) date) . unknown) (unknown) (no (unknown) (unknown) Documented By: (units (unknown) date) Lizz Dodge 10/20/22 unknown) 1030 (unknown) (no (unknown) (unknown) Draft (units (unkno wn) date) unknown) (unknown) (no (unknown) (unknown) EYES: PERRL, EOMI (units (unknown) date) and nonicteric unknown) (unknown) (no (unknown) (unknown) Endocrine: (units (unk nown) date) Negative.? unknown) (unknown) (no (unknown) (unknown) Endometriosis (units [...] own) date) unknown) (unknown) (no (unknown) (unknown) GENERAL: Well (units ( unknown) date) developed, well unknown) nourished.? Cooperative with exam.? Patient is in (unknown) (no (unknown) (unknown) GI bleeding (units (un known) date) unknown) (unknown) (no (unknown) (unknown) Gastric ulcer (units ( unknown) date) unknown) (unknown) (no (unknown) (unknown) Genitourinary: (units (unknown) date) Negative.? unknown) (unknown) (no (unknown) (unknown) Grandfather (uni ts (unknown) date) Stroke unknown) (unknown) (no (unknown) (unknown) Grandmother Breast (units (unknown) date) cancer unknown) (unknown) (no (unknown) (unknown) Grandmother (uni ts (unknown) date) Stroke unknown) (unknown) (no (unknown) (unknown) HEAD: Atraumatic, (units (unknown) date) Normocephalic unknown) (unknown) (no (unknown) (unknown) Headache (units (unkno wn) date) unknown) (unknown) (no (unknown) (unknown) Health Management (units (unknown) date) reviewed with unknown) patient: Yes (unknown) (no (unknown) (unknown) Health Management (units (unknown) date) unknown) (unknown) (no (unknown) (unknown) Hearing loss (units (u nknown) date) unknown) (unknown) (no (unknown) (unknown) Height 5 ft 11 in (units (unknown) date) unknown) (unknown) (no (unknown) (unknown) Hemorrhoid [...] hernia repair unknown) (unknown) (no (unknown) (unknown) I reviewed the (units (unknown) date) patient's Past unknown) Medical History, Problem List, Medications and (unknown) (no (unknown) (unknown) Intake Note: (units [...] unknown) date) unknown) (unknown) (no (unknown) (unknown) LUNGS: Clear all (units (unknown) date) lung echevarria, unknown) Bilaterally (unknown) (no (unknown) (unknown) Loc: [facility] (units (unkno wn) date) unknown) (unknown) (no (unknown) (unknown) [id number] (units (unk nown) date) unknown) (unknown) (no (unknown) (unknown) MUSKULOSKELETAL: (units (unknown) date) Normal gait. unknown) (unknown) (no (unknown) (unknown) Medical History (units (unknown) date) (Updated 07/07/21 @ unknown) 21:03 by Jovita Pham) (unknown) (no (unknown) (unknown) Medications (units (un known) date) unknown) (unknown) (no (unknown) (unknown) Medications: (units (u nknown) date) Reconciled unknown) (unknown) (no (unknown) (unknown) Mental health (units ( unknown) date) problem unknown) (unknown) (no (unknown) (unknown) Migraines (units (unkn own) date) unknown) (unknown) (no (unknown) (unknown) Mother (units (unknown) date) Cancer unknown) (unknown) (no (unknown) (unknown) NECK: Full range of (unit s (unknown) date) motion, unknown) lymphadenopathy absent, supple (unknown) (no (unknown) (unknown) NEURO EXAM: Alert (units (unknown) date) and oriented x 3.? unknown) (unknown) (no (unknown) (unknown) Neurological: (units ( unknown) date) Negative.? unknown) (unknown) (no (unknown) (unknown) Note (units (unkno wn) date) unknown) (unknown) (no (unknown) (unknown) Note: (units (unkno wn) date) unknown) (unknown) (no (unknown) (unknown) Notes (units (unkno wn) date) unknown) (unknown) (no (unknown) (unknown) Objective: (units (unk nown) date) unknown) (unknown) (no (unknown) (unknown) Orders [...] ts (unknown) date) Allergy (Mild, unknown) Uncoded 10/20/22 10:31) (unknown) (no (unknown) (unknown) POC Urine (unit s (unknown) date) Test Today R10.9 - unknown) Unspecified abdominal pain, R11.10 (unknown) (no (unknown) (unknown) PSYCH: judgement (units (unknown) date) normal, orientation unknown) normal, affect/mood normal and memory (unknown) (no (unknown) (unknown) PTSD (post-traumatic (uni ts (unknown) date) stress disorder) unknown) (unknown) (no (unknown) (unknown) Painful menstrual (units (unknown) date) periods unknown) (unknown) (no (unknown) (unknown) Patient states that (unit s (unknown) date) she is been having unknown) esophageal spasms for years. She is had (unknown) (no (unknown) (unknown) Patient: (units (unkno wn) date) Bibi Arreola W unknown) MR#: (unknown) (no (unknown) (unknown) Plan (units (unkno wn) date) unknown) (unknown) (no (unknown) (unknown) Position Sitting (units (unknown) date) unknown) (unknown) (no (unknown) (unknown) Pulse 112 H (units (un known) date) unknown) (unknown) (no (unknown) (unknown) Pulse Oximetry (%) (units (unknown) date) 96 unknown) (unknown) (no (unknown) (unknown) Pulse Source Monitor (uni ts (unknown) date) unknown) (unknown) (no (unknown) (unknown) Reason For Visit (units (unknown) date) unknown) (unknown) (no (unknown) (unknown) Referral (units (unkno wn) date) Gastroenterology unknown) R04.2 - Hemoptysis (unknown) (no (unknown) (unknown) Referral Pulmonology (uni ts (unknown) date) R05.3 - Chronic cough unknown) (unknown) (no (unknown) (unknown) Referrals (units (unkn own) date) unknown) (unknown) (no (unknown) (unknown) Review of Systems: (units (unknown) date) unknown) (unknown) (no (unknown) (unknown) Ruptured tympanic (units (unknown) date) membrane unknown) (unknown) (no (unknown) (unknown) SKIN:? No rashes on (unit s (unknown) date) face or arms. unknown) (unknown) (no (unknown) (unknown) Shoulder pain (units ( unknown) date) () unknown) (unknown) (no (unknown) (unknown) Signed By: (units (unk nown) date) unknown) (unknown) (no (unknown) (unknown) Smoking Status: (units (unknown) date) Former smoker unknown) (unknown) (no (unknown) (unknown) Social History (units (unknown) date) (including tobacco unknown) use status). (unknown) (no (unknown) (unknown) Stroke (units (unkno wn) date) unknown) (unknown) (no (unknown) (unknown) Subjective: (units (un known) date) unknown) (unknown) (no (unknown) (unknown) Surgical History (units (unknown) date) (Updated 07/07/21 @ unknown) 21:03 by Jovita Pham) (unknown) (no (unknown) (unknown) TIA (transient (units (unknown) date) ischemic attack) unknown) (unknown) (no (unknown) (unknown) Temp 97.5 F L (units ( unknown) date) unknown) (unknown) (no (unknown) (unknown) Temp [...] (unknown) (unknown) Visit Reasons: (units (unknown) date) vomiting, coughing 03 unknown) (unknown) (no (unknown) (unknown) Vital Signs: (units (u nknown) date) Reviewed unknown) (unknown) (no (unknown) (unknown) Vitals (units (unkno wn) date) unknown) (unknown) (no (unknown) (unknown) Voice recognition (units (unknown) date) software was used in unknown) the creation of this note. There may be (unknown) (no (unknown) (unknown) Vomiting, (units (unkn own) date) unspecified unknown) (unknown) (no (unknown) (unknown) Weight 195 lb (units ( unknown) date) unknown) (unknown) (no (unknown) (unknown) Yesterday she (units ( unknown) date) developed some nausea unknown) and vomiting and diarrhea as well. She is (unknown) (no (unknown) (unknown) [History Confirmed (units (unknown) date) 10/20/22] unknown) (unknown) (no (unknown) (unknown) a chronic cough (units (unknown) date) since early September. unknown) She states that she is also been coughing (unknown) (no (unknown) (unknown) acetaminophen (units ( unknown) date) [ACETAMINOPHEN] unknown) Allergy (Unknown, Verified 10/20/22 10:31) (unknown) (no (unknown) (unknown) adhesive [ADHESIVE] (unit s (unknown) date) Allergy (Unknown, unknown) Verified 10/20/22 10:31) (unknown) (no (unknown) (unknown) afraid to follow up (unit s (unknown) date) with the specialty unknown) referrals because her ex [id number] (unknown) (no (unknown) (unknown) albuterol sulfate 90 (uni ts (unknown) date) mcg/actuation aerosol unknown) inhaler 2 puff inhalation Q6H PRN (unknown) (no (unknown) (unknown) amitriptyline (units ( unknown) date) [AMITRIPTYLINE] unknown) Allergy (Unknown, Verified 10/20/22 10:31) (unknown) (no (unknown) (unknown) aspirin [ASPIRIN] (units (unknown) date) Allergy (Unknown, unknown) Verified 10/20/22 10:31) (unknown) (no (unknown) (unknown) at this point. She (units (unknown) date) is also concerned unknown) because she is had 10 episodes of (unknown) (no (unknown) (unknown) benzocaine (units (unk nown) date) [BENZOCAINE] Allergy unknown) (Unknown, Verified 10/20/22 10:31) (unknown) (no (unknown) (unknown) benzonatate 100 mg (units (unknown) date) capsule 100 mg PO unknown) BID-TID PRN cough #60 caps 10/12/22 [Rx (unknown) (no (unknown) (unknown) biotin 1 mg capsule (unit s (unknown) date) 1 mg PO DAILY unknown) 05/26/21 [History Confirmed 10/20/22] (unknown) (no (unknown) (unknown) butamben [From (units (unknown) date) CETACAINE] Allergy unknown) (Unknown, Verified 10/20/22 10:31) (unknown) (no (unknown) (unknown) cholecalciferol (units (unknown) date) (vitamin D3) 250 mcg unknown) (10,000 unit) capsule 250 mcg PO DAILY (unknown) (no (unknown) (unknown) clonazepam 1 mg (units (unknown) date) tablet 1 - 2 mg PO unknown) BID 05/26/21 [History Confirmed 10/20/22] (unknown) (no (unknown) (unknown) codeine 10 (units (unk nown) date) mg-guaifenesin 100 unknown) mg/5 mL oral liquid 10 ml PO Q4-6H PRN cough #120 (unknown) (no (unknown) (unknown) dexamethasone (units ( unknown) date) [DEXAMETHASONE] unknown) Allergy (Unknown, Verified 10/20/22 10:31) (unknown) (no (unknown) (unknown) dextroamphetamine-am (uni ts (unknown) date) phetamine 10 mg unknown) tablet (Adderall) 20 mg PO BID #0 tabs (unknown) (no (unknown) (unknown) dicloxacillin (units ( unknown) date) [DICLOXACILLIN] unknown) Allergy (Unknown, Verified 10/20/22 10:31) (unknown) (no (unknown) (unknown) dihydroergocristine (unit s (unknown) date) [DIHYDROERGOCRISTINE] unknown) Allergy (Unknown, Verified 10/20/22 (unknown) (no (unknown) (unknown) dihydroergotamine (units (unknown) date) [DIHYDROERGOTAMINE] unknown) Allergy (Unknown, Verified 10/20/22 10:31) (unknown) (no (unknown) (unknown) diphenhydramine (units (unknown) date) [DIPHENHYDRAMINE] unknown) Allergy (Unknown, Verified 10/20/22 10:31) (unknown) (no (unknown) (unknown) epinephrine 0.3 (units (unknown) date) mg/0.3 mL injection, unknown) auto-injector 0.3 mg IM ONCE 05/26/21 (unknown) (no (unknown) (unknown) frovatriptan (units (u nknown) date) [FROVATRIPTAN] unknown) Allergy (Unknown, Verified 10/20/22 10:31) (unknown) (no (unknown) (unknown) had esophageal (units (unknown) date) cancer. She denies unknown) any weight loss. She is not using her NSAIDs (unknown) (no (unknown) (unknown) has a esophageal (units (unknown) date) cancer is low at this unknown) point. (unknown) (no (unknown) (unknown) have occurred. If (units (unknown) date) there are any unknown) questions, please contact the Medical Records (unknown) (no (unknown) (unknown) hydroxyzine (units (un known) date) [HYDROXYZINE] Allergy unknown) (Unknown, Verified 10/20/22 10:31) (unknown) (no (unknown) (unknown) ibuprofen (units (unkn own) date) [IBUPROFEN] Allergy unknown) (Unknown, Verified 10/20/22 10:31) (unknown) (no (unknown) (unknown) issues since she was (uni ts (unknown) date) double booked. She unknown) will have to schedule an appointment (unknown) (no (unknown) (unknown) latex [LATEX] (units ( unknown) date) Allergy (Unknown, unknown) Verified 10/20/22 10:31) (unknown) (no (unknown) (unknown) mL 10/18/22 [Rx (units (unknown) date) Confirmed 10/20/22] unknown) (unknown) (no (unknown) (unknown) magnesium glycinate (unit s (unknown) date) 100 mg tablet 100 mg unknown) PO DAILY 05/26/21 [History Confirmed (unknown) (no (unknown) (unknown) make sure she was (units (unknown) date) stable. I advised her unknown) that I can not addressed all of her (unknown) (no (unknown) (unknown) may occur. (units (unk nown) date) Occasional wrong-word unknown) or 'sound-alike' substitutions may have (unknown) (no (unknown) (unknown) medications for her (unit s (unknown) date) cough. She is a unknown) former smoker. She states that she is been (unknown) (no (unknown) (unknown) melatonin 10 mg (units (unknown) date) capsule 10 mg PO unknown) BEDTIME PRN 05/26/21 [History Confirmed (unknown) (no (unknown) (unknown) meloxicam 7.5 mg (units (unknown) date) tablet (Mobic) 15 mg unknown) PO [facility] 05/26/21 [History Confirmed (unknown) (no (unknown) (unknown) metoclopramide (units (unknown) date) [METOCLOPRAMIDE] unknown) Allergy (Unknown, Verified 10/20/22 10:31) (unknown) (no (unknown) (unknown) multiple times. She (unit s (unknown) date) states that her unknown) esophagus or trachea was perforated at 1 (unknown) (no (unknown) (unknown) no apparent (units (un known) date) distress. unknown) (unknown) (no (unknown) (unknown) normal (units (unkno wn) date) unknown) (unknown) (no (unknown) (unknown) nortriptyline (units ( unknown) date) [NORTRIPTYLINE] unknown) Allergy (Unknown, Verified 10/20/22 10:31) (unknown) (no (unknown) (unknown) occurred due to the (unit s (unknown) date) inherent limitations unknown) of voice recognition software. Please (unknown) (no (unknown) (unknown) ondansetron 8 mg (units (unknown) date) disintegrating tablet unknown) (Zofran ODT) 8 mg sublingual Q6HP PRN (unknown) (no (unknown) (unknown) otherwise. (units (unk nown) date) unknown) (unknown) (no (unknown) (unknown) oxycodone 10 mg (units (unknown) date) tablet 10 mg PO Q4H unknown) PRN 05/26/21 [History Confirmed 10/20/22] (unknown) (no (unknown) (unknown) point when they (units (unknown) date) extubated her. unknown) (unknown) (no (unknown) (unknown) prasterone (DHEA) (units (unknown) date) [PRASTERONE (DHEA)] unknown) Allergy (Unknown, Verified 10/20/22 10:31) (unknown) (no (unknown) (unknown) prednisone (units (unk nown) date) [PREDNISONE] Allergy unknown) (Unknown, Verified 10/20/22 10:31) (unknown) (no (unknown) (unknown) pregabalin 100 mg (units (unknown) date) capsule (Lyrica) 200 unknown) mg PO BID 05/26/21 [History Confirmed (unknown) (no (unknown) (unknown) prochlorperazine (units (unknown) date) [From COMPAZINE] unknown) Allergy (Unknown, Verified 10/20/22 10:31) (unknown) (no (unknown) (unknown) promethazine [From (units (unknown) date) PHENERGAN] Allergy unknown) (Unknown, Verified 10/20/22 10:31) (unknown) (no (unknown) (unknown) read the note (units ( unknown) date) carefully and unknown) recognize, using context, where these substitutions (unknown) (no (unknown) (unknown) rimegepant 75 mg (units (unknown) date) disintegrating tablet unknown) [facility] 75 mg PO ONCE PRN 05/26/21 (unknown) (no (unknown) (unknown) rizatriptan (units (un known) date) [RIZATRIPTAN] Allergy unknown) (Unknown, Verified 10/20/22 10:31) (unknown) (no (unknown) (unknown) she states that she (unit s (unknown) date) has been having unknown) diarrhea and vomiting at the same time. (unknown) (no (unknown) (unknown) shortness of breath (unit s (unknown) date) or wheezing #8.5 unknown) grams 10/10/22 [Rx Confirmed 10/20/22] (unknown) (no (unknown) (unknown) software. 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 (unit s (unknown) date) unknown) (unknown) (no (unknown) (unknown) taking Zofran as (units (unknown) date) needed. She is taking unknown) over the counter and prescription (unknown) (no (unknown) (unknown) temazepam 30 mg (units (unknown) date) capsule 30 mg PO unknown) BEDTIME PRN 05/26/21 [History Confirmed (unknown) (no (unknown) (unknown) tetracaine (units (unk nown) date) [TETRACAINE] Allergy unknown) (Unknown, Verified 10/20/22 10:31) (unknown) (no (unknown) (unknown) the patient states (units (unknown) date) that she has been unknown) vomiting food and having esophagus spasms. (unknown) (no (unknown) (unknown) topiramate [From (units (unknown) date) TOPAMAX] Allergy unknown) (Unknown, Verified 10/20/22 10:31) (unknown) (no (unknown) (unknown) typographical errors (uni ts (unknown) date) as a result. unknown) (unknown) (no (unknown) (unknown) unexplained (units (un known) date) respiratory failure. unknown) She states that she has been intubated (unknown) (no (unknown) (unknown) up blood (units (unkno wn) date) intermittently. She unknown) is had a chest CT which was unremarkable. (unknown) (no (unknown) (unknown) valproic acid (units ( unknown) date) [VALPROIC ACID] unknown) Allergy (Unknown, Verified 10/20/22 10:31) (unknown) (no (unknown) (unknown) vancomycin (units (unk nown) date) [VANCOMYCIN] Allergy unknown) (Unknown, Verified 10/20/22 10:31) (unknown) (no (unknown) (unknown) verapamil (units (unkn own) date) [VERAPAMIL] Allergy unknown) (Unknown, Verified 10/20/22 10:31) (unknown) (no (unknown) (unknown) with her primary (units (unknown) date) care provider to unknown) address these chronic issues. (unknown) (no (unknown) (unknown) zinc sulfate 50 mg (units (unknown) date) zinc (220 mg) tablet unknown) 50 mg PO DAILY 05/26/21 [History Result panel 160 (unknown) (no date) (unknown) (unknown) > 60 ml/min (unkn own) (unknown) (no date) (unknown) (unknown) > 60 ml/min (unkn own) (unknown) (no date) (unknown) (unknown) 0.6 mg/dl (unkn own) (unknown) (no date) (unknown) (unknown) 0.60 mg/dl (unkn own) (unknown) (no date) (unknown) (unknown) 1.3 (units unknown) (unknown) (unknown) (no date) (unknown) (unknown) 105 mmol/l (unkn own) (unknown) (no date) (unknown) (unknown) 13 mg/dl (unkn own) (unknown) (no date) (unknown) (unknown) 140 mmol/l (unkn own) (unknown) (no date) (unknown) (unknown) 21.7 (units unknown) (unknown) (unknown) (no date) (unknown) (unknown) 24 mmol/l (unkn own) (unknown) (no date) (unknown) (unknown) 3.4 g/dl (unkn own) (unknown) (no date) (unknown) (unknown) 3.6 mmol/l (unkn own) (unknown) (no date) (unknown) (unknown) 4.4 g/dl (unkn own) (unknown) (no date) (unknown) (unknown) 58 u/l (unkn own) (unknown) (no date) (unknown) (unknown) 7.8 g/dl (unkn own) (unknown) (no date) (unknown) (unknown) 8.8 mg/dl (unkn own) (unknown) (no date) (unknown) (unknown) 84 iu/l (unkn own) (unknown) (no date) (unknown) (unknown) 93 iu/l (unkn own) (unknown) (no date) (unknown) (unknown) 97 mg/dl (unkn own) (unknown) (no date) (unknown) (unknown) 97 mg/dl (unkn own) Result panel 161 (unknown) (no (unknown) (unknown) (no value) (units (unk nown) date) unknown) (unknown) (no (unknown) (unknown) ##20 10/08/17 [Rx (units (unknown) date) Confirmed 10/20/22] unknown) (unknown) (no (unknown) (unknown) (1) Hemoptysis: (units (unknown) date) unknown) (unknown) (no (unknown) (unknown) (2) Chronic cough: (units (unknown) date) unknown) (unknown) (no (unknown) (unknown) - Vomiting, (units (un known) date) unspecified unknown) (unknown) (no (unknown) (unknown) -continue supportive (uni ts (unknown) date) care. She does have unknown) Zofran and cough medicines for (unknown) (no (unknown) (unknown) -labs today (units (un known) date) unknown) (unknown) (no (unknown) (unknown) -patient was late (units (unknown) date) for her original unknown) appointment. I agreed to see her quickly to (unknown) (no (unknown) (unknown) -referral placed for (uni ts (unknown) date) GI and pulmonology unknown) evaluation as well. (unknown) (no (unknown) (unknown) -reviewed her chest (unit s (unknown) date) CT which was normal. unknown) Reassured her that the likelihood she (unknown) (no (unknown) (unknown) -she does have an (units (unknown) date) appointment with ENT unknown) for further evaluation (unknown) (no (unknown) (unknown) -to the ER for (units (unknown) date) worsening symptoms, unknown) any other concerns. Follow up with her PCP (unknown) (no (unknown) (unknown) 10/20/22 1404 (units ( unknown) date) unknown) (unknown) (no (unknown) (unknown) 10/20/22 (units (unkno wn) date) unknown) (unknown) (no (unknown) (unknown) 10/20/22] (units (unkn own) date) unknown) (unknown) (no (unknown) (unknown) 05/26/21 [History (units (unknown) date) Confirmed 10/20/22] unknown) (unknown) (no (unknown) (unknown) 10:31) (units (unkno wn) date) unknown) (unknown) (no (unknown) (unknown) 10:44 (units (unkno wn) date) unknown) (unknown) (no (unknown) (unknown) 1st. (units (unkno wn) date) unknown) (unknown) (no (unknown) (unknown) 37 year old female (units (unknown) date) presents to clinic unknown) for coughing up blood x since september (unknown) (no (unknown) (unknown) Age/Sex: 37 / F Date (uni ts (unknown) date) of Service: unknown) (unknown) (no (unknown) (unknown) Allergies (units (unkn own) date) unknown) (unknown) (no (unknown) (unknown) Allergies: Reviewed (unit s (unknown) date) unknown) (unknown) (no (unknown) (unknown) MICHEAL Khan [id number] (unit s (unknown) date) unknown) (unknown) (no [...] date) unknown) (unknown) (no (unknown) (unknown) BMI 27.1 (units (unkno wn) date) unknown) (unknown) (no (unknown) (unknown) BP 112/78 (units (unkn own) date) unknown) (unknown) (no (unknown) (unknown) Blood Pressure (units (unknown) date) Location Lt brachial unknown) (unknown) (no (unknown) (unknown) CARDIAC: Regular (units (unknown) date) rate and rhythm. S1, unknown) S2 normal, no murmur.? No edema. (unknown) (no (unknown) (unknown) CHEST: Normal (units ( unknown) date) respiratory effort unknown) (unknown) (no (unknown) (unknown) Cardiac arrhythmia (units (unknown) date) unknown) (unknown) (no (unknown) (unknown) Cardiovascular: (units (unknown) date) Negative.? unknown) (unknown) (no (unknown) (unknown) Cervical cyst (units ( unknown) date) unknown) (unknown) (no (unknown) (unknown) Chicken pox (units (un known) date) unknown) (unknown) (no (unknown) (unknown) Chief Complaint: (units (unknown) date) coughing up blood unknown) (unknown) (no (unknown) (unknown) Complete Blood Count (uni ts (unknown) date) AUTO DIFF Today R10.9 unknown) - Unspecified abdominal pain, R11.10 (unknown) (no (unknown) (unknown) Comprehensive (units ( unknown) date) Metabolic Panel Today unknown) R10.9 - Unspecified abdominal pain, R11.10 (unknown) (no (unknown) (unknown) Confirmed 10/20/22] (unit s (unknown) date) unknown) (unknown) (no (unknown) (unknown) Constitutional: (units (unknown) date) Negative.? unknown) (unknown) (no (unknown) (unknown) : 1985 (units (unknown) date) Acct:[id number] unknown) (unknown) (no (unknown) (unknown) Depression (units (unk nown) date) unknown) (unknown) (no (unknown) (unknown) Dept at (units (unkno wn) date) . unknown) (unknown) (no (unknown) (unknown) Documented By: (units (unknown) date) Lizz Dodge 10/20/22 unknown) 1030 (unknown) (no (unknown) (unknown) EYES: PERRL, EOMI (units (unknown) date) and nonicteric unknown) (unknown) (no (unknown) (unknown) Endocrine: (units (unk nown) date) Negative.? unknown) (unknown) (no (unknown) (unknown) Endometriosis (units [...] own) date) unknown) (unknown) (no (unknown) (unknown) GENERAL: Well (units ( unknown) date) developed, well unknown) nourished.? Cooperative with exam.? Patient is in (unknown) (no (unknown) (unknown) GI bleeding (units (un known) date) unknown) (unknown) (no (unknown) (unknown) Gastric ulcer (units ( unknown) date) unknown) (unknown) (no (unknown) (unknown) Genitourinary: (units (unknown) date) Negative.? unknown) (unknown) (no (unknown) (unknown) Grandfather (uni ts (unknown) date) Stroke unknown) (unknown) (no (unknown) (unknown) Grandmother Breast (units (unknown) date) cancer unknown) (unknown) (no (unknown) (unknown) Grandmother (uni ts (unknown) date) Stroke unknown) (unknown) (no (unknown) (unknown) HEAD: Atraumatic, (units (unknown) date) Normocephalic unknown) (unknown) (no (unknown) (unknown) Headache (units (unkno wn) date) unknown) (unknown) (no (unknown) (unknown) Health Management (units (unknown) date) reviewed with unknown) patient: Yes (unknown) (no (unknown) (unknown) Health Management (units (unknown) date) unknown) (unknown) (no (unknown) (unknown) Hearing loss (units (u nknown) date) unknown) (unknown) (no (unknown) (unknown) Height 5 ft 11 in (units (unknown) date) unknown) (unknown) (no (unknown) (unknown) Hemorrhoid [...] hernia repair unknown) (unknown) (no (unknown) (unknown) I reviewed the (units (unknown) date) patient's Past unknown) Medical History, Problem List, Medications and (unknown) (no (unknown) (unknown) Intake Note: (units (u nknown) date) unknown) (unknown) (no (unknown) (unknown) Intake performed by: (jennie ts (unknown) date) Samanta Lopez unknown) (unknown) (no (unknown) (unknown) Intake (units (unkno wn) date) unknown) (unknown) (no (unknown) (unknown) Intake- Clincial (units (unknown) date) Staff unknown) (unknown) (no (unknown) (unknown) Interstitial (units (u nknown) date) cystitis unknown) (unknown) (no (unknown) (unknown) Kidney stones (units ( unknown) date) unknown) (unknown) (no (unknown) (unknown) LUNGS: Clear all (units (unknown) date) lung echevarria, unknown) Bilaterally (unknown) (no (unknown) (unknown) Loc: [facility] (units (unkno wn) date) unknown) (unknown) (no (unknown) (unknown) [id number] (units (unk nown) date) unknown) (unknown) (no (unknown) (unknown) MUSKULOSKELETAL: (units (unknown) date) Normal gait. unknown) (unknown) (no (unknown) (unknown) Medical History (units (unknown) date) (Updated 07/07/21 @ unknown) 21:03 by Jovita Pham) (unknown) (no (unknown) (unknown) Medications (units (un known) date) unknown) (unknown) (no (unknown) (unknown) Medications: (units (u nknown) date) Reconciled unknown) (unknown) (no (unknown) (unknown) Mental health (units ( unknown) date) problem unknown) (unknown) (no (unknown) (unknown) Migraines (units (unkn own) date) unknown) (unknown) (no (unknown) (unknown) Mother (units (unknown) date) Cancer unknown) (unknown) (no (unknown) (unknown) NECK: Full range of (unit s (unknown) date) motion, unknown) lymphadenopathy absent, supple (unknown) (no (unknown) (unknown) NEURO EXAM: Alert (units (unknown) date) and oriented x 3.? unknown) (unknown) (no (unknown) (unknown) Neurological: (units ( unknown) date) Negative.? unknown) (unknown) (no (unknown) (unknown) Note (units (unkno wn) date) unknown) (unknown) (no (unknown) (unknown) Note: (units (unkno wn) date) unknown) (unknown) (no (unknown) (unknown) Notes (units (unkno wn) date) unknown) (unknown) (no (unknown) (unknown) Objective: (units (unk nown) date) unknown) (unknown) (no (unknown) (unknown) Orders [...] ts (unknown) date) Allergy (Mild, unknown) Uncoded 10/20/22 10:31) (unknown) (no (unknown) (unknown) POC Urine (unit s (unknown) date) Test Today R10.9 - unknown) Unspecified abdominal pain, R11.10 (unknown) (no (unknown) (unknown) PSYCH: judgement (units (unknown) date) normal, orientation unknown) normal, affect/mood normal and memory (unknown) (no (unknown) (unknown) PTSD (post-traumatic (uni ts (unknown) date) stress disorder) unknown) (unknown) (no (unknown) (unknown) Painful menstrual (units (unknown) date) periods unknown) (unknown) (no (unknown) (unknown) Patient states that (unit s (unknown) date) she is been having unknown) esophageal spasms for years. She is had (unknown) (no (unknown) (unknown) Patient: (units (unkno wn) date) Bibi Arreola W unknown) MR#: (unknown) (no (unknown) (unknown) Plan (units (unkno wn) date) unknown) (unknown) (no (unknown) (unknown) Position Sitting (units (unknown) date) unknown) (unknown) (no (unknown) (unknown) Pulse 112 H (units (un known) date) unknown) (unknown) (no (unknown) (unknown) Pulse Oximetry (%) (units (unknown) date) 96 unknown) (unknown) (no (unknown) (unknown) Pulse Source Monitor (uni ts (unknown) date) unknown) (unknown) (no (unknown) (unknown) Reason For Visit (units (unknown) date) unknown) (unknown) (no (unknown) (unknown) Referral (units (unkno wn) date) Gastroenterology unknown) R04.2 - Hemoptysis (unknown) (no (unknown) (unknown) Referral Pulmonology (uni ts (unknown) date) R05.3 - Chronic cough unknown) (unknown) (no (unknown) (unknown) Referrals (units (unkn own) date) unknown) (unknown) (no (unknown) (unknown) Review of Systems: (units (unknown) date) unknown) (unknown) (no (unknown) (unknown) Ruptured tympanic (units (unknown) date) membrane unknown) (unknown) (no (unknown) (unknown) SKIN:? No rashes on (unit s (unknown) date) face or arms. unknown) (unknown) (no (unknown) (unknown) Shoulder pain (units ( unknown) date) () unknown) (unknown) (no (unknown) (unknown) Signed By: (units (unk nown) date) <Electronically unknown) signed by Lizz Dodge> (unknown) (no (unknown) (unknown) Signed (units (unkno wn) date) unknown) (unknown) (no (unknown) (unknown) Smoking Status: (units (unknown) date) Former smoker unknown) (unknown) (no (unknown) (unknown) Social History (units (unknown) date) (including tobacco unknown) use status). (unknown) (no (unknown) (unknown) Stroke (units (unkno wn) date) unknown) (unknown) (no (unknown) (unknown) Subjective: (units (un known) date) unknown) (unknown) (no (unknown) (unknown) Surgical History (units (unknown) date) (Updated 07/07/21 @ unknown) 21:03 by Jovita Pham) (unknown) (no (unknown) (unknown) TIA (transient (units (unknown) date) ischemic attack) unknown) (unknown) (no (unknown) (unknown) Temp 97.5 F L (units ( unknown) date) unknown) (unknown) (no (unknown) (unknown) Temp [...] (unknown) (unknown) Visit Reasons: (units (unknown) date) vomiting, coughing 03 unknown) (unknown) (no (unknown) (unknown) Vital Signs: (units (u nknown) date) Reviewed unknown) (unknown) (no (unknown) (unknown) Vitals (units (unkno wn) date) unknown) (unknown) (no (unknown) (unknown) Voice recognition (units (unknown) date) software was used in unknown) the creation of this note. There may be (unknown) (no (unknown) (unknown) Vomiting, (units (unkn own) date) unspecified unknown) (unknown) (no (unknown) (unknown) Weight 195 lb (units ( unknown) date) unknown) (unknown) (no (unknown) (unknown) Yesterday she (units ( unknown) date) developed some nausea unknown) and vomiting and diarrhea as well. She is (unknown) (no (unknown) (unknown) [History Confirmed (units (unknown) date) 10/20/22] unknown) (unknown) (no (unknown) (unknown) a chronic cough (units (unknown) date) since early September. unknown) She states that she is also been coughing (unknown) (no (unknown) (unknown) acetaminophen (units ( unknown) date) [ACETAMINOPHEN] unknown) Allergy (Unknown, Verified 10/20/22 10:31) (unknown) (no (unknown) (unknown) adhesive [ADHESIVE] (unit s (unknown) date) Allergy (Unknown, unknown) Verified 10/20/22 10:) (unknown) (no (unknown) (unknown) afraid to follow up (unit s (unknown) date) with the specialty unknown) referrals because her ex [id number] (unknown) (no (unknown) (unknown) albuterol sulfate 90 (uni ts (unknown) date) mcg/actuation aerosol unknown) inhaler 2 puff inhalation Q6H PRN (unknown) (no (unknown) (unknown) amitriptyline (units ( unknown) date) [AMITRIPTYLINE] unknown) Allergy (Unknown, Verified 10/20/22 10:) (unknown) (no (unknown) (unknown) aspirin [ASPIRIN] (units (unknown) date) Allergy (Unknown, unknown) Verified 10/20/22 10:) (unknown) (no (unknown) (unknown) at this point. She (units (unknown) date) is also concerned unknown) because she is had 10 episodes of (unknown) (no (unknown) (unknown) benzocaine (units (unk nown) date) [BENZOCAINE] Allergy unknown) (Unknown, Verified 10/20/22 10:) (unknown) (no (unknown) (unknown) benzonatate 100 mg (units (unknown) date) capsule 100 mg PO unknown) BID-TID PRN cough #60 caps 10/12/22 [Rx (unknown) (no (unknown) (unknown) biotin 1 mg capsule (unit s (unknown) date) 1 mg PO DAILY unknown) 05/26/21 [History Confirmed 10/20/22] (unknown) (no (unknown) (unknown) butamben [From (units (unknown) date) CETACAINE] Allergy unknown) (Unknown, Verified 10/20/22 10:) (unknown) (no (unknown) (unknown) cholecalciferol (units (unknown) date) (vitamin D3) 250 mcg unknown) (10,000 unit) capsule 250 mcg PO DAILY (unknown) (no (unknown) (unknown) clonazepam 1 mg (units (unknown) date) tablet 1 - 2 mg PO unknown) BID 05/26/21 [History Confirmed 10/20/22] (unknown) (no (unknown) (unknown) codeine 10 (units (unk nown) date) mg-guaifenesin 100 unknown) mg/5 mL oral liquid 10 ml PO Q4-6H PRN cough #120 (unknown) (no (unknown) (unknown) dexamethasone (units ( unknown) date) [DEXAMETHASONE] unknown) Allergy (Unknown, Verified 10/20/22 10:31) (unknown) (no (unknown) (unknown) dextroamphetamine-am (uni ts (unknown) date) phetamine 10 mg unknown) tablet (Adderall) 20 mg PO BID #0 tabs (unknown) (no (unknown) (unknown) dicloxacillin (units ( unknown) date) [DICLOXACILLIN] unknown) Allergy (Unknown, Verified 10/20/22 10:31) (unknown) (no (unknown) (unknown) dihydroergocristine (unit s (unknown) date) [DIHYDROERGOCRISTINE] unknown) Allergy (Unknown, Verified 10/20/22 (unknown) (no (unknown) (unknown) dihydroergotamine (units (unknown) date) [DIHYDROERGOTAMINE] unknown) Allergy (Unknown, Verified 10/20/22 10:31) (unknown) (no (unknown) (unknown) diphenhydramine (units (unknown) date) [DIPHENHYDRAMINE] unknown) Allergy (Unknown, Verified 10/20/22 10:31) (unknown) (no (unknown) (unknown) epinephrine 0.3 (units (unknown) date) mg/0.3 mL injection, unknown) auto-injector 0.3 mg IM ONCE 05/26/21 (unknown) (no (unknown) (unknown) frovatriptan (units (u nknown) date) [FROVATRIPTAN] unknown) Allergy (Unknown, Verified 10/20/22 10:31) (unknown) (no (unknown) (unknown) had esophageal (units (unknown) date) cancer. She denies unknown) any weight loss. She is not using her NSAIDs (unknown) (no (unknown) (unknown) has a esophageal (units (unknown) date) cancer is low at this unknown) point. (unknown) (no (unknown) (unknown) have occurred. If (units (unknown) date) there are any unknown) questions, please contact the Medical Records (unknown) (no (unknown) (unknown) hydroxyzine (units (un known) date) [HYDROXYZINE] Allergy unknown) (Unknown, Verified 10/20/22 10:31) (unknown) (no (unknown) (unknown) ibuprofen (units (unkn own) date) [IBUPROFEN] Allergy unknown) (Unknown, Verified 10/20/22 10:31) (unknown) (no (unknown) (unknown) issues since she was (uni ts (unknown) date) double booked. She unknown) will have to schedule an appointment (unknown) (no (unknown) (unknown) latex [LATEX] (units ( unknown) date) Allergy (Unknown, unknown) Verified 10/20/22 10:31) (unknown) (no (unknown) (unknown) mL 10/18/22 [Rx (units (unknown) date) Confirmed 10/20/22] unknown) (unknown) (no (unknown) (unknown) magnesium glycinate (unit s (unknown) date) 100 mg tablet 100 mg unknown) PO DAILY 05/26/21 [History Confirmed (unknown) (no (unknown) (unknown) make sure she was (units (unknown) date) stable. I advised her unknown) that I can not addressed all of her (unknown) (no (unknown) (unknown) may occur. (units (unk nown) date) Occasional wrong-word unknown) or 'sound-alike' substitutions may have (unknown) (no (unknown) (unknown) medications for her (unit s (unknown) date) cough. She is a unknown) former smoker. She states that she is been (unknown) (no (unknown) (unknown) melatonin 10 mg (units (unknown) date) capsule 10 mg PO unknown) BEDTIME PRN 05/26/21 [History Confirmed (unknown) (no (unknown) (unknown) meloxicam 7.5 mg (units (unknown) date) tablet (Mobic) 15 mg unknown) PO [facility] 05/26/21 [History Confirmed (unknown) (no (unknown) (unknown) metoclopramide (units (unknown) date) [METOCLOPRAMIDE] unknown) Allergy (Unknown, Verified 10/20/22 10:31) (unknown) (no (unknown) (unknown) multiple times. She (unit s (unknown) date) states that her unknown) esophagus or trachea was perforated at 1 (unknown) (no (unknown) (unknown) no apparent (units (un known) date) distress. unknown) (unknown) (no (unknown) (unknown) normal (units (unkno wn) date) unknown) (unknown) (no (unknown) (unknown) nortriptyline (units ( unknown) date) [NORTRIPTYLINE] unknown) Allergy (Unknown, Verified 10/20/22 10:31) (unknown) (no (unknown) (unknown) occurred due to the (unit s (unknown) date) inherent limitations unknown) of voice recognition software. Please (unknown) (no (unknown) (unknown) ondansetron 8 mg (units (unknown) date) disintegrating tablet unknown) (Zofran ODT) 8 mg sublingual Q6HP PRN (unknown) (no (unknown) (unknown) otherwise. (units (unk nown) date) unknown) (unknown) (no (unknown) (unknown) oxycodone 10 mg (units (unknown) date) tablet 10 mg PO Q4H unknown) PRN 05/26/21 [History Confirmed 10/20/22] (unknown) (no (unknown) (unknown) point when they (units (unknown) date) extubated her. unknown) (unknown) (no (unknown) (unknown) prasterone (DHEA) (units (unknown) date) [PRASTERONE (DHEA)] unknown) Allergy (Unknown, Verified 10/20/22 10:31) (unknown) (no (unknown) (unknown) prednisone (units (unk nown) date) [PREDNISONE] Allergy unknown) (Unknown, Verified 10/20/22 10:31) (unknown) (no (unknown) (unknown) pregabalin 100 mg (units (unknown) date) capsule (Lyrica) 200 unknown) mg PO BID 05/26/21 [History Confirmed (unknown) (no (unknown) (unknown) prochlorperazine (units (unknown) date) [From COMPAZINE] unknown) Allergy (Unknown, Verified 10/20/22 10:31) (unknown) (no (unknown) (unknown) promethazine [From (units (unknown) date) PHENERGAN] Allergy unknown) (Unknown, Verified 10/20/22 10:31) (unknown) (no (unknown) (unknown) read the note (units ( unknown) date) carefully and unknown) recognize, using context, where these substitutions (unknown) (no (unknown) (unknown) rimegepant 75 mg (units (unknown) date) disintegrating tablet unknown) (Nurtec ODT) 75 mg PO ONCE PRN 05/26/21 (unknown) (no (unknown) (unknown) rizatriptan (units (un known) date) [RIZATRIPTAN] Allergy unknown) (Unknown, Verified 10/20/22 10:31) (unknown) (no (unknown) (unknown) she states that she (unit s (unknown) date) has been having unknown) diarrhea and vomiting at the same time. (unknown) (no (unknown) (unknown) shortness of breath (unit s (unknown) date) or wheezing #8.5 unknown) grams 10/10/22 [Rx Confirmed 10/20/22] (unknown) (no (unknown) (unknown) software. 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 (unit s (unknown) date) unknown) (unknown) (no (unknown) (unknown) taking Zofran as (units (unknown) date) needed. She is taking unknown) over the counter and prescription (unknown) (no (unknown) (unknown) temazepam 30 mg (units (unknown) date) capsule 30 mg PO unknown) BEDTIME PRN 05/26/21 [History Confirmed (unknown) (no (unknown) (unknown) tetracaine (units (unk nown) date) [TETRACAINE] Allergy unknown) (Unknown, Verified 10/20/22 10:31) (unknown) (no (unknown) (unknown) the patient states (units (unknown) date) that she has been unknown) vomiting food and having esophagus spasms. (unknown) (no (unknown) (unknown) topiramate [From (units (unknown) date) TOPAMAX] Allergy unknown) (Unknown, Verified 10/20/22 10:31) (unknown) (no (unknown) (unknown) typographical errors (uni ts (unknown) date) as a result. unknown) (unknown) (no (unknown) (unknown) unexplained (units (un known) date) respiratory failure. unknown) She states that she has been intubated (unknown) (no (unknown) (unknown) up blood (units (unkno wn) date) intermittently. She unknown) is had a chest CT which was unremarkable. (unknown) (no (unknown) (unknown) valproic acid (units ( unknown) date) [VALPROIC ACID] unknown) Allergy (Unknown, Verified 10/20/22 10:) (unknown) (no (unknown) (unknown) vancomycin (units (unk nown) date) [VANCOMYCIN] Allergy unknown) (Unknown, Verified 10/20/22 10:) (unknown) (no (unknown) (unknown) verapamil (units (unkn own) date) [VERAPAMIL] Allergy unknown) (Unknown, Verified 10/20/22 10:31) (unknown) (no (unknown) (unknown) with her primary (units (unknown) date) care provider to unknown) address these chronic issues. (unknown) (no (unknown) (unknown) zinc sulfate 50 mg (units (unknown) date) zinc (220 mg) tablet unknown) 50 mg PO DAILY 05/26/21 [History Result panel 162 (unknown) (no (unknown) (unknown) (no value) (units (unk nown) date) unknown) (unknown) (no (unknown) (unknown) 11/16/22 (units (unkno wn) date) unknown) (unknown) (no (unknown) (unknown) 11/16/22] (units (unkn own) date) unknown) (unknown) (no (unknown) (unknown) 05/26/21 [History (units (unknown) date) Confirmed 11/16/22] unknown) (unknown) (no (unknown) (unknown) 11:38) (units (unkno wn) date) unknown) (unknown) (no (unknown) (unknown) 11:42 (units (unkno wn) date) unknown) (unknown) (no (unknown) (unknown) Age/Sex: 37 / F Date (uni ts (unknown) date) of Service: unknown) (unknown) (no (unknown) (unknown) Allergies (units (unkn own) date) unknown) (unknown) (no (unknown) (unknown) [place] [address] (unit s (unknown) date) unknown) (unknown) (no (unknown) (unknown) Anesthesia (units (unk nown) date) unknown) (unknown) (no (unknown) (unknown) Ankle pain (units (unk nown) date) unknown) (unknown) (no (unknown) (unknown) Anxiety (units (unkno wn) date) unknown) (unknown) (no (unknown) (unknown) Asthma (units (unkno wn) date) unknown) (unknown) (no (unknown) (unknown) Attending Dr: (units ( unknown) date) Laurent Lucas MD unknown) (unknown) (no (unknown) (unknown) BLISTERS AT SITE (units (unknown) date) unknown) (unknown) (no (unknown) (unknown) BP 128/80 (units (unkn own) date) unknown) (unknown) (no (unknown) (unknown) Blood Pressure (units (unknown) date) Location Lt brachial unknown) (unknown) (no (unknown) (unknown) Cardiac arrhythmia (units (unknown) date) unknown) (unknown) (no (unknown) (unknown) Cervical cyst (units ( unknown) date) unknown) (unknown) (no (unknown) (unknown) Chicken pox (units (un known) date) unknown) (unknown) (no (unknown) (unknown) Confirmed 11/16/22] (unit s (unknown) date) unknown) (unknown) (no (unknown) (unknown) : 1985 (units (unknown) date) Acct:[id number] unknown) (unknown) (no (unknown) (unknown) Depression (units (unk nown) date) unknown) (unknown) (no (unknown) (unknown) Dept at (units (unkno wn) date) . unknown) (unknown) (no (unknown) (unknown) Documented By: (units (unknown) date) Laurent Lucas MD unknown) 11/16/22 1137 (unknown) (no (unknown) (unknown) Draft (units (unkno [...] wn) date) unknown) (unknown) (no (unknown) (unknown) Hearing [...] repair unknown) (unknown) (no (unknown) (unknown) Intake performed by: (uni ts (unknown) date) Dorina Griffiths unknown) (unknown) (no (unknown) (unknown) Intake (units (unkno wn) date) unknown) (unknown) (no (unknown) (unknown) Intake- Clincial (units (unknown) date) Staff unknown) (unknown) (no (unknown) (unknown) Interstitial (units (u nknown) date) cystitis unknown) (unknown) (no (unknown) (unknown) Kidney stones (units ( unknown) date) unknown) (unknown) (no (unknown) (unknown) Loc: [facility] (units (unkno wn) date) unknown) (unknown) (no (unknown) (unknown) [id number] (units (unk nown) date) unknown) (unknown) (no [...] ts (unknown) date) Allergy (Mild, unknown) Uncoded 11/16/22 11:38) (unknown) (no (unknown) (unknown) PTSD (post-traumatic (uni ts (unknown) date) stress disorder) unknown) (unknown) (no (unknown) (unknown) Painful menstrual (units (unknown) date) periods unknown) (unknown) (no (unknown) (unknown) Patient: (units (unkno wn) date) Bibi Arreola unknown) MR#: (unknown) (no (unknown) (unknown) Position Sitting (units (unknown) date) unknown) (unknown) (no (unknown) (unknown) Pulse 79 (units (unkno wn) date) unknown) (unknown) (no (unknown) (unknown) Pulse Oximetry (%) (units (unknown) date) 98 unknown) (unknown) (no (unknown) (unknown) Pulse Source [...] unknown) (unknown) (no (unknown) (unknown) Visit Reasons: f/u (units (unknown) date) with long covid 03 unknown) (unknown) (no (unknown) (unknown) Vitals (units (unkno wn) date) unknown) (unknown) (no (unknown) (unknown) Weight 190 lb (units ( unknown) date) unknown) (unknown) (no (unknown) (unknown) [History Confirmed (units (unknown) date) 11/16/22] unknown) (unknown) (no (unknown) (unknown) acetaminophen (units ( unknown) date) [ACETAMINOPHEN] unknown) Allergy (Unknown, Verified 11/16/22 11:38) (unknown) (no (unknown) (unknown) adhesive [ADHESIVE] (unit s (unknown) date) Allergy (Unknown, unknown) Verified 11/16/22 11:38) (unknown) (no (unknown) (unknown) albuterol sulfate 90 (uni ts (unknown) date) mcg/actuation aerosol unknown) inhaler 2 puff inhalation Q6H PRN (unknown) (no (unknown) (unknown) amitriptyline (units ( unknown) date) [AMITRIPTYLINE] unknown) Allergy (Unknown, Verified 11/16/22 11:38) (unknown) (no (unknown) (unknown) aspirin [ASPIRIN] (units (unknown) date) Allergy (Unknown, unknown) Verified 11/16/22 11:38) (unknown) (no (unknown) (unknown) benzocaine (units (unk nown) date) [BENZOCAINE] Allergy unknown) (Unknown, Verified 11/16/22 11:38) (unknown) (no (unknown) (unknown) benzonatate 100 mg (units (unknown) date) capsule 100 mg PO unknown) BID-TID PRN cough #60 caps 10/12/22 [Rx (unknown) (no (unknown) (unknown) biotin 1 mg capsule (unit s (unknown) date) 1 mg PO DAILY unknown) 05/26/21 [History Confirmed 11/16/22] (unknown) (no (unknown) (unknown) butamben [From (units (unknown) date) CETACAINE] Allergy unknown) (Unknown, Verified 11/16/22 11:38) (unknown) (no (unknown) (unknown) cholecalciferol (units (unknown) date) (vitamin D3) 250 mcg unknown) (10,000 unit) capsule 250 mcg PO DAILY (unknown) (no (unknown) (unknown) clonazepam 1 mg (units (unknown) date) tablet 1 - 2 mg PO unknown) BID 05/26/21 [History Confirmed 11/16/22] (unknown) (no (unknown) (unknown) dexamethasone (units ( unknown) date) [DEXAMETHASONE] unknown) Allergy (Unknown, Verified 11/16/22 11:38) (unknown) (no (unknown) (unknown) dextroamphetamine-am (uni ts (unknown) date) phetamine 10 mg unknown) tablet (Adderall) 20 mg PO BID #0 tabs (unknown) (no (unknown) (unknown) dicloxacillin (units ( unknown) date) [DICLOXACILLIN] unknown) Allergy (Unknown, Verified 11/16/22 11:38) (unknown) (no (unknown) (unknown) dihydroergocristine (unit s (unknown) date) [DIHYDROERGOCRISTINE] unknown) Allergy (Unknown, Verified 11/16/22 (unknown) (no (unknown) (unknown) dihydroergotamine (units (unknown) date) [DIHYDROERGOTAMINE] unknown) Allergy (Unknown, Verified 11/16/22 11:38) (unknown) (no (unknown) (unknown) diphenhydramine (units (unknown) date) [DIPHENHYDRAMINE] unknown) Allergy (Unknown, Verified 11/16/22 11:38) (unknown) (no (unknown) (unknown) epinephrine 0.3 (units (unknown) date) mg/0.3 mL injection, unknown) auto-injector 0.3 mg IM ONCE 05/26/21 (unknown) (no (unknown) (unknown) frovatriptan (units (u nknown) date) [FROVATRIPTAN] unknown) Allergy (Unknown, Verified 11/16/22 11:38) (unknown) (no (unknown) (unknown) have occurred. If (units (unknown) date) there are any unknown) questions, please contact the Medical Records (unknown) (no (unknown) (unknown) hydromorphone 2 mg (units (unknown) date) tablet 2 mg PO Q4-6H unknown) PRN 11/16/22 [History Confirmed (unknown) (no (unknown) (unknown) hydroxyzine (units (un known) date) [HYDROXYZINE] Allergy unknown) (Unknown, Verified 11/16/22 11:38) (unknown) (no (unknown) (unknown) ibuprofen (units (unkn own) date) [IBUPROFEN] Allergy unknown) (Unknown, Verified 11/16/22 11:38) (unknown) (no (unknown) (unknown) latex [LATEX] (units ( unknown) date) Allergy (Unknown, unknown) Verified 11/16/22 11:38) (unknown) (no (unknown) (unknown) magnesium glycinate (unit [...] (unknown) date) [METOCLOPRAMIDE] unknown) Allergy (Unknown, Verified 11/16/22 11:38) (unknown) (no (unknown) (unknown) nortriptyline (units ( unknown) date) [NORTRIPTYLINE] unknown) Allergy (Unknown, Verified 11/16/22 11:38) (unknown) (no (unknown) (unknown) occurred due to the (unit s (unknown) date) inherent limitations unknown) of voice recognition software. Please (unknown) (no (unknown) (unknown) prasterone (DHEA) (units (unknown) date) [PRASTERONE (DHEA)] unknown) Allergy (Unknown, Verified 11/16/22 11:38) (unknown) (no (unknown) (unknown) prednisone (units (unk nown) date) [PREDNISONE] Allergy unknown) (Unknown, Verified 11/16/22 11:38) (unknown) (no (unknown) (unknown) pregabalin 100 mg (units (unknown) date) capsule (Lyrica) 200 unknown) mg PO BID 05/26/21 [History Confirmed (unknown) (no (unknown) (unknown) prochlorperazine (units (unknown) date) [From COMPAZINE] unknown) Allergy (Unknown, Verified 11/16/22 11:38) (unknown) (no (unknown) (unknown) promethazine [From (units (unknown) date) PHENERGAN] Allergy unknown) (Unknown, Verified 11/16/22 11:38) (unknown) (no (unknown) (unknown) read the note (units ( unknown) date) carefully and unknown) recognize, using context, where these substitutions (unknown) (no (unknown) (unknown) rizatriptan (units (un known) date) [RIZATRIPTAN] Allergy unknown) (Unknown, Verified 11/16/22 11:38) (unknown) (no (unknown) (unknown) shortness of breath (unit s (unknown) date) or wheezing #8.5 unknown) grams 10/10/22 [Rx Confirmed 11/16/22] (unknown) (no (unknown) (unknown) software. Although (units (unknown) date) every effort is made unknown) to edit content, plastic block boiler reliner errors (unknown) (no (unknown) (unknown) sumatriptan (units (un known) date) [SUMATRIPTAN] Allergy unknown) (Unknown, Verified 11/16/22 11:38) (unknown) (no (unknown) (unknown) temazepam 30 mg (units (unknown) date) capsule 30 mg PO unknown) BEDTIME PRN 05/26/21 [History Confirmed (unknown) (no (unknown) (unknown) tetracaine (units (unk nown) date) [TETRACAINE] Allergy unknown) (Unknown, Verified 11/16/22 11:38) (unknown) (no (unknown) (unknown) topiramate [From (units (unknown) date) TOPAMAX] Allergy unknown) (Unknown, Verified 11/16/22 11:38) (unknown) (no (unknown) (unknown) valproic acid (units ( unknown) date) [VALPROIC ACID] unknown) Allergy (Unknown, Verified 11/16/22 11:38) (unknown) (no (unknown) (unknown) vancomycin (units (unk nown) date) [VANCOMYCIN] Allergy unknown) (Unknown, Verified 11/16/22 11:38) (unknown) (no (unknown) (unknown) verapamil (units (unkn own) date) [VERAPAMIL] Allergy unknown) (Unknown, Verified 11/16/22 11:38) (unknown) (no (unknown) (unknown) zinc sulfate 50 mg (units (unknown) date) zinc (220 mg) tablet unknown) 50 mg PO DAILY 05/26/21 [History Result panel 163 (unknown) (no (unknown) (unknown) (no value) (units (unk nown) date) unknown) (unknown) (no (unknown) (unknown) 11/16/22 (units (unkno wn) date) unknown) (unknown) (no (unknown) (unknown) 11/16/22] (units (unkn own) date) unknown) (unknown) (no (unknown) (unknown) 05/26/21 [History (units (unknown) date) Confirmed 11/16/22] unknown) (unknown) (no (unknown) (unknown) 11:38) (units (unkno wn) date) unknown) (unknown) (no (unknown) (unknown) 11:42 (units (unkno wn) date) unknown) (unknown) (no (unknown) (unknown) Age/Sex: 37 / F Date (uni ts (unknown) date) of Service: unknown) (unknown) (no (unknown) (unknown) Allergies (units (unkn own) date) unknown) (unknown) (no (unknown) (unknown) [place] [id number] (unit s (unknown) date) unknown) (unknown) (no (unknown) (unknown) Anesthesia (units (unk nown) date) unknown) (unknown) (no (unknown) (unknown) Ankle pain (units (unk nown) date) unknown) (unknown) (no (unknown) (unknown) Anxiety (units (unkno wn) date) unknown) (unknown) (no (unknown) (unknown) Asthma (units (unkno wn) date) unknown) (unknown) (no (unknown) (unknown) Attending Dr: (units ( unknown) date) Laurent Lucas MD unknown) (unknown) (no (unknown) (unknown) Bibi is a 37y (units (unknown) date) female with history unknown) of ADHD, anxiety depression, chronic pain (unknown) (no (unknown) (unknown) BLISTERS AT SITE (units (unknown) date) unknown) (unknown) (no (unknown) (unknown) BP 128/80 (units (unkn own) date) unknown) (unknown) (no [...] unknown) (unknown) (no (unknown) (unknown) Chief Complaint: (units (unknown) date) Follow-up COVID unknown) (unknown) (no (unknown) (unknown) Confirmed 11/16/22] (unit s (unknown) date) unknown) (unknown) (no (unknown) (unknown) : 1985 (units (unknown) date) Acct:[id number] unknown) (unknown) (no (unknown) (unknown) Depression (units (unk nown) date) unknown) (unknown) (no (unknown) (unknown) Dept at (units (unkno wn) date) . unknown) (unknown) (no (unknown) (unknown) Details: (units (unkno wn) date) unknown) (unknown) (no (unknown) (unknown) Documented By: (units (unknown) date) Laurent Lucas MD unknown) 11/16/22 1137 (unknown) (no (unknown) (unknown) Draft (units (unkno [...] wn) date) unknown) (unknown) (no (unknown) (unknown) Hearing [...] repair unknown) (unknown) (no (unknown) (unknown) Intake performed by: (uni ts (unknown) date) Dorina Griffiths unknown) (unknown) (no (unknown) (unknown) Intake (units (unkno wn) date) unknown) (unknown) (no (unknown) (unknown) Intake- Clincial (units (unknown) date) Staff unknown) (unknown) (no (unknown) (unknown) Interstitial (units (u nknown) date) cystitis unknown) (unknown) (no (unknown) (unknown) Kidney stones (units ( unknown) date) unknown) (unknown) (no (unknown) (unknown) Loc: [facility] (units (unkno wn) date) unknown) (unknown) (no (unknown) (unknown) [id number] (units (unk nown) date) unknown) (unknown) (no [...] ts (unknown) date) Allergy (Mild, unknown) Uncoded 11/16/22 11:38) (unknown) (no (unknown) (unknown) PTSD (post-traumatic (uni ts (unknown) date) stress disorder) unknown) (unknown) (no (unknown) (unknown) Painful menstrual (units (unknown) date) periods unknown) (unknown) (no (unknown) (unknown) Patient: (units (unkno wn) date) Bibi Arreola unknown) MR#: (unknown) (no (unknown) (unknown) Position Sitting (units (unknown) date) unknown) (unknown) (no (unknown) (unknown) Pulse 79 (units (unkno wn) date) unknown) (unknown) (no (unknown) (unknown) Pulse Oximetry (%) (units (unknown) date) 98 unknown) (unknown) (no (unknown) (unknown) Pulse Source [...] unknown) (unknown) (no (unknown) (unknown) Visit Reasons: f/u (units (unknown) date) with long covid 03 unknown) (unknown) (no (unknown) (unknown) Vitals (units (unkno wn) date) unknown) (unknown) (no (unknown) (unknown) Weight 190 lb (units ( unknown) date) unknown) (unknown) (no (unknown) (unknown) [History Confirmed (units (unknown) date) 11/16/22] unknown) (unknown) (no (unknown) (unknown) acetaminophen (units ( unknown) date) [ACETAMINOPHEN] unknown) Allergy (Unknown, Verified 11/16/22 11:38) (unknown) (no (unknown) (unknown) adhesive [ADHESIVE] (unit s (unknown) date) Allergy (Unknown, unknown) Verified 11/16/22 11:38) (unknown) (no (unknown) (unknown) albuterol sulfate 90 (uni ts (unknown) date) mcg/actuation aerosol unknown) inhaler 2 puff inhalation Q6H PRN (unknown) (no (unknown) (unknown) amitriptyline (units ( unknown) date) [AMITRIPTYLINE] unknown) Allergy (Unknown, Verified 11/16/22 11:38) (unknown) (no (unknown) (unknown) aspirin [ASPIRIN] (units (unknown) date) Allergy (Unknown, unknown) Verified 11/16/22 11:38) (unknown) (no (unknown) (unknown) benzocaine (units (unk nown) date) [BENZOCAINE] Allergy unknown) (Unknown, Verified 11/16/22 11:38) (unknown) (no (unknown) (unknown) benzonatate 100 mg (units (unknown) date) capsule 100 mg PO unknown) BID-TID PRN cough #60 caps 10/12/22 [Rx (unknown) (no (unknown) (unknown) biotin 1 mg capsule (unit s (unknown) date) 1 mg PO DAILY unknown) 05/26/21 [History Confirmed 11/16/22] (unknown) (no (unknown) (unknown) butamben [From (units (unknown) date) CETACAINE] Allergy unknown) (Unknown, Verified 11/16/22 11:38) (unknown) (no (unknown) (unknown) cholecalciferol (units (unknown) date) (vitamin D3) 250 mcg unknown) (10,000 unit) capsule 250 mcg PO DAILY (unknown) (no (unknown) (unknown) clonazepam 1 mg (units (unknown) date) tablet 1 - 2 mg PO unknown) BID 05/26/21 [History Confirmed 11/16/22] (unknown) (no (unknown) (unknown) dexamethasone (units ( unknown) date) [DEXAMETHASONE] unknown) Allergy (Unknown, Verified 11/16/22 11:38) (unknown) (no (unknown) (unknown) dextroamphetamine-am (uni ts (unknown) date) phetamine 10 mg unknown) tablet (Adderall) 20 mg PO BID #0 tabs (unknown) (no (unknown) (unknown) dicloxacillin (units ( unknown) date) [DICLOXACILLIN] unknown) Allergy (Unknown, Verified 11/16/22 11:38) (unknown) (no (unknown) (unknown) dihydroergocristine (unit s (unknown) date) [DIHYDROERGOCRISTINE] unknown) Allergy (Unknown, Verified 11/16/22 (unknown) (no (unknown) (unknown) dihydroergotamine (units (unknown) date) [DIHYDROERGOTAMINE] unknown) Allergy (Unknown, Verified 11/16/22 11:38) (unknown) (no (unknown) (unknown) diphenhydramine (units (unknown) date) [DIPHENHYDRAMINE] unknown) Allergy (Unknown, Verified 11/16/22 11:38) (unknown) (no (unknown) (unknown) epinephrine 0.3 (units (unknown) date) mg/0.3 mL injection, unknown) auto-injector 0.3 mg IM ONCE 05/26/21 (unknown) (no (unknown) (unknown) frovatriptan (units (u nknown) date) [FROVATRIPTAN] unknown) Allergy (Unknown, Verified 11/16/22 11:38) (unknown) (no (unknown) (unknown) have esophageal (units (unknown) date) spasms. unknown) (unknown) (no (unknown) (unknown) have occurred. If (units (unknown) date) there are any unknown) questions, please contact the Medical Records (unknown) (no (unknown) (unknown) hydromorphone 2 mg (units (unknown) date) tablet 2 mg PO Q4-6H unknown) PRN 11/16/22 [History Confirmed (unknown) (no (unknown) (unknown) hydroxyzine (units (un known) date) [HYDROXYZINE] Allergy unknown) (Unknown, Verified 11/16/22 11:38) (unknown) (no (unknown) (unknown) ibuprofen (units (unkn own) date) [IBUPROFEN] Allergy unknown) (Unknown, Verified 11/16/22 11:38) (unknown) (no (unknown) (unknown) latex [LATEX] (units ( unknown) date) Allergy (Unknown, unknown) Verified 11/16/22 11:38) (unknown) (no (unknown) (unknown) magnesium glycinate (unit [...] (unknown) date) [METOCLOPRAMIDE] unknown) Allergy (Unknown, Verified 11/16/22 11:38) (unknown) (no (unknown) (unknown) nortriptyline (units ( unknown) date) [NORTRIPTYLINE] unknown) Allergy (Unknown, Verified 11/16/22 11:38) (unknown) (no (unknown) (unknown) occurred due to the (unit s (unknown) date) inherent limitations unknown) of voice recognition software. Please (unknown) (no (unknown) (unknown) prasterone (DHEA) (units (unknown) date) [PRASTERONE (DHEA)] unknown) Allergy (Unknown, Verified 11/16/22 11:38) (unknown) (no (unknown) (unknown) prednisone (units (unk nown) date) [PREDNISONE] Allergy unknown) (Unknown, Verified 11/16/22 11:38) (unknown) (no (unknown) (unknown) pregabalin 100 mg (units (unknown) date) capsule (Lyrica) 200 unknown) mg PO BID 05/26/21 [History Confirmed (unknown) (no (unknown) (unknown) prochlorperazine (units (unknown) date) [From COMPAZINE] unknown) Allergy (Unknown, Verified 11/16/22 11:38) (unknown) (no (unknown) (unknown) promethazine [From (units (unknown) date) PHENERGAN] Allergy unknown) (Unknown, Verified 11/16/22 11:38) (unknown) (no (unknown) (unknown) read the note (units ( unknown) date) carefully and unknown) recognize, using context, where these substitutions (unknown) (no (unknown) (unknown) rizatriptan (units (un known) date) [RIZATRIPTAN] Allergy unknown) (Unknown, Verified 11/16/22 11:38) (unknown) (no (unknown) (unknown) shortness of breath (unit s (unknown) date) or wheezing #8.5 unknown) grams 10/10/22 [Rx Confirmed 11/16/22] (unknown) (no (unknown) (unknown) software. Although (units (unknown) date) every effort is made unknown) to edit content, plastic block boiler reliner errors (unknown) (no (unknown) (unknown) sumatriptan (units (un known) date) [SUMATRIPTAN] Allergy unknown) (Unknown, Verified 11/16/22 11:38) (unknown) (no (unknown) (unknown) syndrome, (units (unkn own) date) fibromyalgia who is unknown) here because of persistent COVID symptoms. Does (unknown) (no (unknown) (unknown) temazepam 30 mg (units (unknown) date) capsule 30 mg PO unknown) BEDTIME PRN 05/26/21 [History Confirmed (unknown) (no (unknown) (unknown) tetracaine (units (unk nown) date) [TETRACAINE] Allergy unknown) (Unknown, Verified 11/16/22 11:38) (unknown) (no (unknown) (unknown) topiramate [From (units (unknown) date) TOPAMAX] Allergy unknown) (Unknown, Verified 11/16/22 11:38) (unknown) (no (unknown) (unknown) valproic acid (units ( unknown) date) [VALPROIC ACID] unknown) Allergy (Unknown, Verified 11/16/22 11:38) (unknown) (no (unknown) (unknown) vancomycin (units (unk nown) date) [VANCOMYCIN] Allergy unknown) (Unknown, Verified 11/16/22 11:38) (unknown) (no (unknown) (unknown) verapamil (units (unkn own) date) [VERAPAMIL] Allergy unknown) (Unknown, Verified 11/16/22 11:38) (unknown) (no (unknown) (unknown) zinc sulfate 50 mg (units (unknown) date) zinc (220 mg) tablet unknown) 50 mg PO DAILY 05/26/21 [History Result panel 164 (unknown) (no (unknown) (unknown) (no value) (units (unk nown) date) unknown) (unknown) (no (unknown) (unknown) 11/16/22 (units (unkno wn) date) unknown) (unknown) (no (unknown) (unknown) 11/16/22] (units (unkn own) date) unknown) (unknown) (no (unknown) (unknown) 05/26/21 [History (units (unknown) date) Confirmed 11/16/22] unknown) (unknown) (no (unknown) (unknown) 11:38) (units (unkno wn) date) unknown) (unknown) (no (unknown) (unknown) 11:42 (units (unkno wn) date) unknown) (unknown) (no (unknown) (unknown) Age/Sex: 37 / F Date (uni ts (unknown) date) of Service: unknown) (unknown) (no (unknown) (unknown) Allergies (units (unkn own) date) unknown) (unknown) (no (unknown) (unknown) MICHEAL Khan [id number] (unit s (unknown) date) unknown) (unknown) (no (unknown) (unknown) Anesthesia (units (unk nown) date) unknown) (unknown) (no (unknown) (unknown) Ankle pain (units (unk nown) date) unknown) (unknown) (no (unknown) (unknown) Anxiety (units (unkno wn) date) unknown) (unknown) (no (unknown) (unknown) Asthma (units (unkno wn) date) unknown) (unknown) (no (unknown) (unknown) Attending Dr: (units ( unknown) date) Laurent Lucas MD unknown) (unknown) (no (unknown) (unknown) Bibi is a 37y (units (unknown) date) female with history unknown) of ADHD, anxiety depression, chronic pain (unknown) (no (unknown) (unknown) BLISTERS AT SITE (units (unknown) date) unknown) (unknown) (no (unknown) (unknown) BP 128/80 (units (unkn own) date) unknown) (unknown) (no [...] unknown) (unknown) (no (unknown) (unknown) Chief Complaint: (units (unknown) date) Follow-up COVID unknown) (unknown) (no (unknown) (unknown) Confirmed 11/16/22] (unit s (unknown) date) unknown) (unknown) (no (unknown) (unknown) : 1985 (units (unknown) date) Acct:[id number] unknown) (unknown) (no (unknown) (unknown) Depression (units (unk nown) date) unknown) (unknown) (no (unknown) (unknown) Dept at (units (unkno wn) date) . unknown) (unknown) (no (unknown) (unknown) Details: (units (unkno wn) date) unknown) (unknown) (no (unknown) (unknown) Documented By: (units (unknown) date) Laurent Lucas MD unknown) 11/16/22 1137 (unknown) (no (unknown) (unknown) Draft (units (unkno [...] wn) date) unknown) (unknown) (no (unknown) (unknown) Hearing [...] repair unknown) (unknown) (no (unknown) (unknown) Intake performed by: (uni ts (unknown) date) Dorina Griffiths unknown) (unknown) (no (unknown) (unknown) Intake (units (unkno wn) date) unknown) (unknown) (no (unknown) (unknown) Intake- Clincial (units (unknown) date) Staff unknown) (unknown) (no (unknown) (unknown) Interstitial (units (u nknown) date) cystitis unknown) (unknown) (no (unknown) (unknown) Kidney stones (units ( unknown) date) unknown) (unknown) (no (unknown) (unknown) Loc: [facility] (units (unkno wn) date) unknown) (unknown) (no (unknown) (unknown) [id number] (units (unk nown) date) unknown) (unknown) (no (unknown) (unknown) Medical History (units (unknown) date) (Updated 07/07/21 @ unknown) 21:03 by Jovita Phma) (unknown) (no (unknown) (unknown) Medications (units (un [...] ts (unknown) date) Allergy (Mild, unknown) Uncoded 11/16/22 11:38) (unknown) (no (unknown) (unknown) PTSD (post-traumatic (uni ts (unknown) date) stress disorder) unknown) (unknown) (no (unknown) (unknown) Painful menstrual (units (unknown) date) periods unknown) (unknown) (no (unknown) (unknown) Patient: (units (unkno wn) date) Bibi Arreola unknown) MR#: (unknown) (no (unknown) (unknown) Position Sitting (units (unknown) date) unknown) (unknown) (no (unknown) (unknown) Pulse 79 (units (unkno wn) date) unknown) (unknown) (no (unknown) (unknown) Pulse Oximetry (%) (units (unknown) date) 98 unknown) (unknown) (no (unknown) (unknown) Pulse Source [...] unknown) (unknown) (no (unknown) (unknown) Visit Reasons: f/u (units (unknown) date) with long covid 03 unknown) (unknown) (no (unknown) (unknown) Vitals (units (unkno wn) date) unknown) (unknown) (no (unknown) (unknown) Weight 190 lb (units ( unknown) date) unknown) (unknown) (no (unknown) (unknown) [History Confirmed (units (unknown) date) 11/16/22] unknown) (unknown) (no (unknown) (unknown) acetaminophen (units ( unknown) date) [ACETAMINOPHEN] unknown) Allergy (Unknown, Verified 11/16/22 11:38) (unknown) (no (unknown) (unknown) adhesive [ADHESIVE] (unit s (unknown) date) Allergy (Unknown, unknown) Verified 11/16/22 11:38) (unknown) (no (unknown) (unknown) albuterol sulfate 90 (uni ts (unknown) date) mcg/actuation aerosol unknown) inhaler 2 puff inhalation Q6H PRN (unknown) (no (unknown) (unknown) amitriptyline (units ( unknown) date) [AMITRIPTYLINE] unknown) Allergy (Unknown, Verified 11/16/22 11:38) (unknown) (no (unknown) (unknown) aspirin [ASPIRIN] (units (unknown) date) Allergy (Unknown, unknown) Verified 11/16/22 11:38) (unknown) (no (unknown) (unknown) benzocaine (units (unk nown) date) [BENZOCAINE] Allergy unknown) (Unknown, Verified 11/16/22 11:38) (unknown) (no (unknown) (unknown) benzonatate 100 mg (units (unknown) date) capsule 100 mg PO unknown) BID-TID PRN cough #60 caps 10/12/22 [Rx (unknown) (no (unknown) (unknown) biotin 1 mg capsule (unit s (unknown) date) 1 mg PO DAILY unknown) 05/26/21 [History Confirmed 11/16/22] (unknown) (no (unknown) (unknown) butamben [From (units (unknown) date) CETACAINE] Allergy unknown) (Unknown, Verified 11/16/22 11:38) (unknown) (no (unknown) (unknown) cholecalciferol (units (unknown) date) (vitamin D3) 250 mcg unknown) (10,000 unit) capsule 250 mcg PO DAILY (unknown) (no (unknown) (unknown) clonazepam 1 mg (units (unknown) date) tablet 1 - 2 mg PO unknown) BID 05/26/21 [History Confirmed 11/16/22] (unknown) (no (unknown) (unknown) dexamethasone (units ( unknown) date) [DEXAMETHASONE] unknown) Allergy (Unknown, Verified 11/16/22 11:38) (unknown) (no (unknown) (unknown) dextroamphetamine-am (uni ts (unknown) date) phetamine 10 mg unknown) tablet (Adderall) 20 mg PO BID #0 tabs (unknown) (no (unknown) (unknown) dicloxacillin (units ( unknown) date) [DICLOXACILLIN] unknown) Allergy (Unknown, Verified 11/16/22 11:38) (unknown) (no (unknown) (unknown) dihydroergocristine (unit s (unknown) date) [DIHYDROERGOCRISTINE] unknown) Allergy (Unknown, Verified 11/16/22 (unknown) (no (unknown) (unknown) dihydroergotamine (units (unknown) date) [DIHYDROERGOTAMINE] unknown) Allergy (Unknown, Verified 11/16/22 11:38) (unknown) (no (unknown) (unknown) diphenhydramine (units (unknown) date) [DIPHENHYDRAMINE] unknown) Allergy (Unknown, Verified 11/16/22 11:38) (unknown) (no (unknown) (unknown) epinephrine 0.3 (units (unknown) date) mg/0.3 mL injection, unknown) auto-injector 0.3 mg IM ONCE 05/26/21 (unknown) (no (unknown) (unknown) frovatriptan (units (u nknown) date) [FROVATRIPTAN] unknown) Allergy (Unknown, Verified 11/16/22 11:38) (unknown) (no (unknown) (unknown) have esophageal (units (unknown) date) spasms. unknown) (unknown) (no (unknown) (unknown) have occurred. If (units (unknown) date) there are any unknown) questions, please contact the Medical Records (unknown) (no (unknown) (unknown) hydromorphone 2 mg (units (unknown) date) tablet 2 mg PO Q4-6H unknown) PRN 11/16/22 [History Confirmed (unknown) (no (unknown) (unknown) hydroxyzine (units (un known) date) [HYDROXYZINE] Allergy unknown) (Unknown, Verified 11/16/22 11:38) (unknown) (no (unknown) (unknown) ibuprofen (units (unkn own) date) [IBUPROFEN] Allergy unknown) (Unknown, Verified 11/16/22 11:38) (unknown) (no (unknown) (unknown) latex [LATEX] (units ( unknown) date) Allergy (Unknown, unknown) Verified 11/16/22 11:38) (unknown) (no (unknown) (unknown) magnesium glycinate (unit [...] (unknown) date) [METOCLOPRAMIDE] unknown) Allergy (Unknown, Verified 11/16/22 11:38) (unknown) (no (unknown) (unknown) nortriptyline (units ( unknown) date) [NORTRIPTYLINE] unknown) Allergy (Unknown, Verified 11/16/22 11:38) (unknown) (no (unknown) (unknown) occurred due to the (unit s (unknown) date) inherent limitations unknown) of voice recognition software. Please (unknown) (no (unknown) (unknown) prasterone (DHEA) (units (unknown) date) [PRASTERONE (DHEA)] unknown) Allergy (Unknown, Verified 11/16/22 11:38) (unknown) (no (unknown) (unknown) prednisone (units (unk nown) date) [PREDNISONE] Allergy unknown) (Unknown, Verified 11/16/22 11:38) (unknown) (no (unknown) (unknown) pregabalin 100 mg (units (unknown) date) capsule (Lyrica) 200 unknown) mg PO BID 05/26/21 [History Confirmed (unknown) (no (unknown) (unknown) prochlorperazine (units (unknown) date) [From COMPAZINE] unknown) Allergy (Unknown, Verified 11/16/22 11:38) (unknown) (no (unknown) (unknown) promethazine [From (units (unknown) date) PHENERGAN] Allergy unknown) (Unknown, Verified 11/16/22 11:38) (unknown) (no (unknown) (unknown) read the note (units ( unknown) date) carefully and unknown) recognize, using context, where these substitutions (unknown) (no (unknown) (unknown) rizatriptan (units (un known) date) [RIZATRIPTAN] Allergy unknown) (Unknown, Verified 11/16/22 11:38) (unknown) (no (unknown) (unknown) shortness of breath (unit s (unknown) date) or wheezing #8.5 unknown) grams 10/10/22 [Rx Confirmed 11/16/22] (unknown) (no (unknown) (unknown) software. Although (units (unknown) date) every effort is made unknown) to edit content, plastic block boiler reliner errors (unknown) (no (unknown) (unknown) sumatriptan (units (un known) date) [SUMATRIPTAN] Allergy unknown) (Unknown, Verified 11/16/22 11:38) (unknown) (no (unknown) (unknown) syndrome, (units (unkn own) date) fibromyalgia who is unknown) here because of persistent COVID symptoms. Does (unknown) (no (unknown) (unknown) temazepam 30 mg (units (unknown) date) capsule 30 mg PO unknown) BEDTIME PRN 05/26/21 [History Confirmed (unknown) (no (unknown) (unknown) tetracaine (units (unk nown) date) [TETRACAINE] Allergy unknown) (Unknown, Verified 11/16/22 11:38) (unknown) (no (unknown) (unknown) topiramate [From (units (unknown) date) TOPAMAX] Allergy unknown) (Unknown, Verified 11/16/22 11:38) (unknown) (no (unknown) (unknown) valproic acid (units ( unknown) date) [VALPROIC ACID] unknown) Allergy (Unknown, Verified 11/16/22 11:38) (unknown) (no (unknown) (unknown) vancomycin (units (unk nown) date) [VANCOMYCIN] Allergy unknown) (Unknown, Verified 11/16/22 11:38) (unknown) (no (unknown) (unknown) verapamil (units (unkn own) date) [VERAPAMIL] Allergy unknown) (Unknown, Verified 11/16/22 11:38) (unknown) (no (unknown) (unknown) zinc sulfate 50 mg (units (unknown) date) zinc (220 mg) tablet unknown) 50 mg PO DAILY 05/26/21 [History Result panel 165 (unknown) (no (unknown) (unknown) (no value) (units (unk nown) date) unknown) (unknown) (no (unknown) (unknown) (1) GI bleeding: (units (unknown) date) unknown) (unknown) (no (unknown) (unknown) (2) Gastric ulcer: (units (unknown) date) unknown) (unknown) (no (unknown) (unknown) (3) PTSD (units (unkno wn) date) (post-traumatic unknown) stress disorder): (unknown) (no (unknown) (unknown) (4) Right upper (units (unknown) date) quadrant pain: unknown) (unknown) (no (unknown) (unknown) 11/16/22 (units (unkno wn) date) unknown) (unknown) (no (unknown) (unknown) 11/16/22] (units (unkn own) date) unknown) (unknown) (no (unknown) (unknown) 05/26/21 [History (units (unknown) date) Confirmed 11/16/22] unknown) (unknown) (no (unknown) (unknown) 11:38) (units (unkno wn) date) unknown) (unknown) (no (unknown) (unknown) 11:42 (units (unkno wn) date) unknown) (unknown) (no (unknown) (unknown) Age/Sex: 37 / F Date (uni ts (unknown) date) of Service: unknown) (unknown) (no (unknown) (unknown) Allergies (units (unkn own) date) unknown) (unknown) (no (unknown) (unknown) MICHEAL Khan [id number] (unit s (unknown) date) unknown) (unknown) (no (unknown) (unknown) Anesthesia (units (unk nown) date) unknown) (unknown) (no (unknown) (unknown) Ankle pain (units (unk nown) date) unknown) (unknown) (no (unknown) (unknown) Anxiety (units (unkno wn) date) unknown) (unknown) (no (unknown) (unknown) Assessment + Plan (units (unknown) date) unknown) (unknown) (no (unknown) (unknown) Asthma (units (unkno wn) date) unknown) (unknown) (no (unknown) (unknown) Attending Dr: (units ( unknown) date) Laurent Lucas MD unknown) (unknown) (no (unknown) (unknown) Bibi is a 37y (units (unknown) date) female with history unknown) of ADHD, anxiety depression, chronic pain (unknown) (no (unknown) (unknown) BLISTERS AT SITE (units (unknown) date) unknown) (unknown) (no (unknown) (unknown) BP 128/80 (units (unkn own) date) unknown) (unknown) (no [...] unknown) (unknown) (no (unknown) (unknown) Chief Complaint: (units (unknown) date) Follow-up COVID unknown) (unknown) (no (unknown) (unknown) Complete Blood Count (uni ts (unknown) date) AUTO DIFF Today unknown) F43.10 - Post-traumatic stress disorder, (unknown) (no (unknown) (unknown) Comprehensive (units ( unknown) date) Metabolic Panel Today unknown) F43.10 - Post-traumatic stress disorder, (unknown) (no (unknown) (unknown) Confirmed 11/16/22] (unit s (unknown) date) unknown) (unknown) (no (unknown) (unknown) : 1985 (units (unknown) date) Acct:[id number] unknown) (unknown) (no (unknown) (unknown) Depression (units (unk nown) date) unknown) (unknown) (no (unknown) (unknown) Dept at (units (unkno wn) date) . unknown) (unknown) (no (unknown) (unknown) Details: (units (unkno wn) date) unknown) (unknown) (no (unknown) (unknown) Documented By: (units (unknown) date) Laurent Lucas MD unknown) 11/16/22 1137 (unknown) (no (unknown) (unknown) Draft (units (unkno [...] date) Stroke unknown) (unknown) (no (unknown) (unknown) H pylori Breath Test (unit s (unknown) date) Today F43.10 - unknown) Post-traumatic stress disorder, unspecified, (unknown) (no (unknown) (unknown) HPI (units (unkno wn) date) unknown) (unknown) (no (unknown) (unknown) Headache (units (unkno wn) date) unknown) (unknown) (no (unknown) (unknown) Hearing [...] repair unknown) (unknown) (no (unknown) (unknown) Intake performed by: (uni ts (unknown) date) Dorina Griffiths unknown) (unknown) (no (unknown) (unknown) Intake (units (unkno wn) date) unknown) (unknown) (no (unknown) (unknown) Intake- Clincial (units (unknown) date) Staff unknown) (unknown) (no (unknown) (unknown) Interstitial (units (u nknown) date) cystitis unknown) (unknown) (no (unknown) (unknown) K25.9 - Gastric (units (unknown) date) ulcer, unspecified as unknown) acute or chronic, without hemorrhage or (unknown) (no (unknown) (unknown) Kidney stones (units ( unknown) date) unknown) (unknown) (no (unknown) (unknown) Loc: [facility] (units (unkno wn) date) unknown) (unknown) (no (unknown) (unknown) [id number] (units (unk nown) date) unknown) (unknown) (no [...] date) Cancer unknown) (unknown) (no (unknown) (unknown) [place] HIDA with cck 1 (units (unknown) date) Week F43.10 - unknown) Post-traumatic stress disorder, unspecified, (unknown) (no (unknown) (unknown) New (units (unkno [...] ts (unknown) date) Allergy (Mild, unknown) Uncoded 11/16/22 11:38) (unknown) (no (unknown) (unknown) PTSD (post-traumatic (uni ts (unknown) date) stress disorder) unknown) (unknown) (no (unknown) (unknown) Painful menstrual (units (unknown) date) periods unknown) (unknown) (no (unknown) (unknown) Patient: (units (unkno wn) date) MaxwellBibi W unknown) MR#: (unknown) (no (unknown) (unknown) Position Sitting (units (unknown) date) unknown) (unknown) (no (unknown) (unknown) Pulse 79 (units (unkno wn) date) unknown) (unknown) (no (unknown) (unknown) Pulse Oximetry (%) (units (unknown) date) 98 unknown) (unknown) (no (unknown) (unknown) Pulse Source [...] Former smoker unknown) (unknown) (no (unknown) (unknown) Status: Acute (units ( unknown) date) unknown) (unknown) (no (unknown) (unknown) Stroke (units [...] unknown) (unknown) (no (unknown) (unknown) Visit Reasons: f/u (units (unknown) date) with long covid 03 unknown) (unknown) (no (unknown) (unknown) Vitals (units (unkno wn) date) unknown) (unknown) (no (unknown) (unknown) Weight 190 lb (units ( unknown) date) unknown) (unknown) (no (unknown) (unknown) [History Confirmed (units (unknown) date) 11/16/22] unknown) (unknown) (no (unknown) (unknown) acetaminophen (units ( unknown) date) [ACETAMINOPHEN] unknown) Allergy (Unknown, Verified 11/16/22 11:38) (unknown) (no (unknown) (unknown) adhesive [ADHESIVE] (unit s (unknown) date) Allergy (Unknown, unknown) Verified 11/16/22 11:38) (unknown) (no (unknown) (unknown) albuterol sulfate 90 (uni ts (unknown) date) mcg/actuation aerosol unknown) inhaler 2 puff inhalation Q6H PRN (unknown) (no (unknown) (unknown) amitriptyline (units ( unknown) date) [AMITRIPTYLINE] unknown) Allergy (Unknown, Verified 11/16/22 11:38) (unknown) (no (unknown) (unknown) aspirin [ASPIRIN] (units (unknown) date) Allergy (Unknown, unknown) Verified 11/16/22:38) (unknown) (no (unknown) (unknown) benzocaine (units (unk nown) date) [BENZOCAINE] Allergy unknown) (Unknown, Verified 11/16/22:) (unknown) (no (unknown) (unknown) benzonatate 100 mg (units (unknown) date) capsule 100 mg PO unknown) BID-TID PRN cough #60 caps 10/12/22 [Rx (unknown) (no (unknown) (unknown) biotin 1 mg capsule (unit s (unknown) date) 1 mg PO DAILY unknown) 05/26/21 [History Confirmed 11/16/22] (unknown) (no (unknown) (unknown) butamben [From (units (unknown) date) CETACAINE] Allergy unknown) (Unknown, Verified 11/16/22:) (unknown) (no (unknown) (unknown) cholecalciferol (units (unknown) date) (vitamin D3) 250 mcg unknown) (10,000 unit) capsule 250 mcg PO DAILY (unknown) (no (unknown) (unknown) clonazepam 1 mg (units (unknown) date) tablet 1 - 2 mg PO unknown) BID 05/26/21 [History Confirmed 11/16/22] (unknown) (no (unknown) (unknown) dexamethasone (units ( unknown) date) [DEXAMETHASONE] unknown) Allergy (Unknown, Verified 11/16/22 11:38) (unknown) (no (unknown) (unknown) dextroamphetamine-am (uni ts (unknown) date) phetamine 10 mg unknown) tablet (Adderall) 20 mg PO BID #0 tabs (unknown) (no (unknown) (unknown) dicloxacillin (units ( unknown) date) [DICLOXACILLIN] unknown) Allergy (Unknown, Verified 11/16/22 11:38) (unknown) (no (unknown) (unknown) dihydroergocristine (unit s (unknown) date) [DIHYDROERGOCRISTINE] unknown) Allergy (Unknown, Verified 11/16/22 (unknown) (no (unknown) (unknown) dihydroergotamine (units (unknown) date) [DIHYDROERGOTAMINE] unknown) Allergy (Unknown, Verified 11/16/22 11:38) (unknown) (no (unknown) (unknown) diphenhydramine (units (unknown) date) [DIPHENHYDRAMINE] unknown) Allergy (Unknown, Verified 11/16/22 11:38) (unknown) (no (unknown) (unknown) epinephrine 0.3 (units (unknown) date) mg/0.3 mL injection, unknown) auto-injector 0.3 mg IM ONCE 05/26/21 (unknown) (no (unknown) (unknown) frovatriptan (units (u nknown) date) [FROVATRIPTAN] unknown) Allergy (Unknown, Verified 11/16/22 11:38) (unknown) (no (unknown) (unknown) have esophageal (units (unknown) date) spasms. unknown) (unknown) (no (unknown) (unknown) have occurred. If (units (unknown) date) there are any unknown) questions, please contact the Medical Records (unknown) (no (unknown) (unknown) hemorrhage or (units ( unknown) date) perforation, K92.2 - unknown) Gastrointestinal hemorrhage, unspecified (unknown) (no (unknown) (unknown) hydromorphone 2 mg (units (unknown) date) tablet 2 mg PO Q4-6H unknown) PRN 11/16/22 [History Confirmed (unknown) (no (unknown) (unknown) hydroxyzine (units (un known) date) [HYDROXYZINE] Allergy unknown) (Unknown, Verified 11/16/22 11:38) (unknown) (no (unknown) (unknown) ibuprofen (units (unkn own) date) [IBUPROFEN] Allergy unknown) (Unknown, Verified 11/16/22 11:38) (unknown) (no (unknown) (unknown) latex [LATEX] (units ( unknown) date) Allergy (Unknown, unknown) Verified 11/16/22 11:38) (unknown) (no (unknown) (unknown) magnesium glycinate (unit [...] (unknown) date) [METOCLOPRAMIDE] unknown) Allergy (Unknown, Verified 11/16/22 11:38) (unknown) (no (unknown) (unknown) nortriptyline (units ( unknown) date) [NORTRIPTYLINE] unknown) Allergy (Unknown, Verified 11/16/22 11:38) (unknown) (no (unknown) (unknown) occurred due to the (unit s (unknown) date) inherent limitations unknown) of voice recognition software. Please (unknown) (no (unknown) (unknown) perforation, K92.2 - (uni ts (unknown) date) Gastrointestinal unknown) hemorrhage, unspecified (unknown) (no (unknown) (unknown) perforation, K92.2 - (uni ts (unknown) date) Gastrointestinal unknown) hemorrhage, unspecified, R10.11 - Right (unknown) (no (unknown) (unknown) prasterone (DHEA) (units (unknown) date) [PRASTERONE (DHEA)] unknown) Allergy (Unknown, Verified 11/16/22 11:38) (unknown) (no (unknown) (unknown) prednisone (units (unk nown) date) [PREDNISONE] Allergy unknown) (Unknown, Verified 11/16/22 11:38) (unknown) (no (unknown) (unknown) pregabalin 100 mg (units (unknown) date) capsule (Lyrica) 200 unknown) mg PO BID 05/26/21 [History Confirmed (unknown) (no (unknown) (unknown) prochlorperazine (units (unknown) date) [From COMPAZINE] unknown) Allergy (Unknown, Verified 11/16/22 11:38) (unknown) (no (unknown) (unknown) promethazine [From (units (unknown) date) PHENERGAN] Allergy unknown) (Unknown, Verified 11/16/22 11:38) (unknown) (no (unknown) (unknown) read the note (units ( unknown) date) carefully and unknown) recognize, using context, where these substitutions (unknown) (no (unknown) (unknown) rizatriptan (units (un known) date) [RIZATRIPTAN] Allergy unknown) (Unknown, Verified 11/16/22 11:38) (unknown) (no (unknown) (unknown) sertraline (Zoloft) (unit s (unknown) date) 50 mg PO DAILY 60 unknown) tabs 0RF (unknown) (no (unknown) (unknown) sertraline 50 mg (units (unknown) date) tablet (Zoloft) 50 mg unknown) PO DAILY #60 tabs 11/16/22 [Rx Confirmed (unknown) (no (unknown) (unknown) shortness of breath (unit s (unknown) date) or wheezing #8.5 unknown) grams 10/10/22 [Rx Confirmed 11/16/22] (unknown) (no (unknown) (unknown) software. Although (units (unknown) date) every effort is made unknown) to edit content, plastic block boiler reliner errors (unknown) (no (unknown) (unknown) sumatriptan (units (un known) date) [SUMATRIPTAN] Allergy unknown) (Unknown, Verified 11/16/22 11:38) (unknown) (no (unknown) (unknown) syndrome, (units (unkn own) date) fibromyalgia who is unknown) here because of persistent COVID symptoms. Does (unknown) (no (unknown) (unknown) temazepam 30 mg (units (unknown) date) capsule 30 mg PO unknown) BEDTIME PRN 05/26/21 [History Confirmed (unknown) (no (unknown) (unknown) tetracaine (units (unk nown) date) [TETRACAINE] Allergy unknown) (Unknown, Verified 11/16/22 11:38) (unknown) (no (unknown) (unknown) topiramate [From (units (unknown) date) TOPAMAX] Allergy unknown) (Unknown, Verified 11/16/22 11:38) (unknown) (no (unknown) (unknown) unspecified, K25.9 - (uni ts (unknown) date) Gastric ulcer, unknown) unspecified as acute or chronic, without (unknown) (no (unknown) (unknown) upper quadrant pain (unit s (unknown) date) unknown) (unknown) (no (unknown) (unknown) valproic acid (units ( unknown) date) [VALPROIC ACID] unknown) Allergy (Unknown, Verified 11/16/22 11:38) (unknown) (no (unknown) (unknown) vancomycin (units (unk nown) date) [VANCOMYCIN] Allergy unknown) (Unknown, Verified 11/16/22 11:38) (unknown) (no (unknown) (unknown) verapamil (units (unkn own) date) [VERAPAMIL] Allergy unknown) (Unknown, Verified 11/16/22 11:38) (unknown) (no (unknown) (unknown) zinc sulfate 50 mg (units (unknown) date) zinc (220 mg) tablet unknown) 50 mg PO DAILY 05/26/21 [History Result panel 166 (unknown) (no (unknown) (unknown) (no value) (units (unk nown) date) unknown) (unknown) (no (unknown) (unknown) (1) GI bleeding: (units (unknown) date) unknown) (unknown) (no (unknown) (unknown) (2) Gastric ulcer: (units (unknown) date) unknown) (unknown) (no (unknown) (unknown) (3) PTSD (units (unkno wn) date) (post-traumatic unknown) stress disorder): (unknown) (no (unknown) (unknown) (4) Right upper (units (unknown) date) quadrant pain: unknown) (unknown) (no (unknown) (unknown) 11/16/22 (units (unkno wn) date) unknown) (unknown) (no (unknown) (unknown) 11/16/22] (units (unkn own) date) unknown) (unknown) (no (unknown) (unknown) 05/26/21 [History (units (unknown) date) Confirmed 11/16/22] unknown) (unknown) (no (unknown) (unknown) 11:38) (units (unkno wn) date) unknown) (unknown) (no (unknown) (unknown) 11:42 (units (unkno wn) date) unknown) (unknown) (no (unknown) (unknown) Age/Sex: 37 / F Date (uni ts (unknown) date) of Service: unknown) (unknown) (no (unknown) (unknown) Allergies (units (unkn own) date) unknown) (unknown) (no (unknown) (unknown) [place] [address] (unit s (unknown) date) unknown) (unknown) (no (unknown) (unknown) Anesthesia (units (unk nown) date) unknown) (unknown) (no (unknown) (unknown) Ankle pain (units (unk nown) date) unknown) (unknown) (no (unknown) (unknown) Anxiety (units (unkno wn) date) unknown) (unknown) (no (unknown) (unknown) Assessment + Plan (units (unknown) date) unknown) (unknown) (no (unknown) (unknown) Asthma (units (unkno wn) date) unknown) (unknown) (no (unknown) (unknown) Attending Dr: (units ( unknown) date) Laurent Lucas MD unknown) (unknown) (no (unknown) (unknown) Bibi is a 37y (units (unknown) date) female with history unknown) of ADHD, anxiety depression, chronic pain (unknown) (no (unknown) (unknown) BLISTERS AT SITE (units (unknown) date) unknown) (unknown) (no (unknown) (unknown) BP 128/80 (units (unkn own) date) unknown) (unknown) (no [...] unknown) (unknown) (no (unknown) (unknown) Chief Complaint: (units (unknown) date) Follow-up COVID unknown) (unknown) (no (unknown) (unknown) Complete Blood Count (uni ts (unknown) date) AUTO DIFF Today unknown) F43.10 - Post-traumatic stress disorder, (unknown) (no (unknown) (unknown) Comprehensive (units ( unknown) date) Metabolic Panel Today unknown) F43.10 - Post-traumatic stress disorder, (unknown) (no (unknown) (unknown) Confirmed 11/16/22] (unit s (unknown) date) unknown) (unknown) (no (unknown) (unknown) : 1985 (units (unknown) date) Acct:[id number] unknown) (unknown) (no (unknown) (unknown) Depression (units (unk nown) date) unknown) (unknown) (no (unknown) (unknown) Dept at (units (unkno wn) date) . unknown) (unknown) (no (unknown) (unknown) Details: (units (unkno wn) date) unknown) (unknown) (no (unknown) (unknown) Documented By: (units (unknown) date) Laurent Lucas MD unknown) 11/16/22 1137 (unknown) (no (unknown) (unknown) Draft (units (unkno [...] wn) date) unknown) (unknown) (no (unknown) (unknown) Hearing [...] repair unknown) (unknown) (no (unknown) (unknown) Intake performed by: (uni ts (unknown) date) Dorina Griffiths unknown) (unknown) (no (unknown) (unknown) Intake (units (unkno wn) date) unknown) (unknown) (no (unknown) (unknown) Intake- Clincial (units (unknown) date) Staff unknown) (unknown) (no (unknown) (unknown) Interstitial (units (u nknown) date) cystitis unknown) (unknown) (no (unknown) (unknown) K25.9 - Gastric (units (unknown) date) ulcer, unspecified as unknown) acute or chronic, without hemorrhage or (unknown) (no (unknown) (unknown) Kidney stones (units ( unknown) date) unknown) (unknown) (no (unknown) (unknown) Loc: [facility] (units (unkno wn) date) unknown) (unknown) (no (unknown) (unknown) [id number] (units (unk nown) date) unknown) (unknown) (no [...] date) Cancer unknown) (unknown) (no (unknown) (unknown) [place] H[place] with cck 1 (units (unknown) date) Week F43.10 - unknown) Post-traumatic stress disorder, unspecified, (unknown) (no (unknown) (unknown) New (units (unkno [...] ts (unknown) date) Allergy (Mild, unknown) Uncoded 11/16/22 11:38) (unknown) (no (unknown) (unknown) PTSD (post-traumatic (uni ts (unknown) date) stress disorder) unknown) (unknown) (no (unknown) (unknown) Painful menstrual (units (unknown) date) periods unknown) (unknown) (no (unknown) (unknown) Patient: (units (unkno wn) date) Bibi Arreola W unknown) MR#: (unknown) (no (unknown) (unknown) Position Sitting (units (unknown) date) unknown) (unknown) (no (unknown) (unknown) Pulse 79 (units (unkno wn) date) unknown) (unknown) (no (unknown) (unknown) Pulse Oximetry (%) (units (unknown) date) 98 unknown) (unknown) (no (unknown) (unknown) Pulse Source [...] Former smoker unknown) (unknown) (no (unknown) (unknown) Status: Acute (units ( unknown) date) unknown) (unknown) (no (unknown) (unknown) Stroke (units [...] unknown) (unknown) (no (unknown) (unknown) Visit Reasons: f/u (units (unknown) date) with long covid 03 unknown) (unknown) (no (unknown) (unknown) Vitals (units (unkno wn) date) unknown) (unknown) (no (unknown) (unknown) Weight 190 lb (units ( unknown) date) unknown) (unknown) (no (unknown) (unknown) [History Confirmed (units (unknown) date) 11/16/22] unknown) (unknown) (no (unknown) (unknown) acetaminophen (units ( unknown) date) [ACETAMINOPHEN] unknown) Allergy (Unknown, Verified 11/16/22 11:38) (unknown) (no (unknown) (unknown) adhesive [ADHESIVE] (unit s (unknown) date) Allergy (Unknown, unknown) Verified 11/16/22 11:38) (unknown) (no (unknown) (unknown) albuterol sulfate 90 (uni ts (unknown) date) mcg/actuation aerosol unknown) inhaler 2 puff inhalation Q6H PRN (unknown) (no (unknown) (unknown) amitriptyline (units ( unknown) date) [AMITRIPTYLINE] unknown) Allergy (Unknown, Verified 11/16/22 11:38) (unknown) (no (unknown) (unknown) aspirin [ASPIRIN] (units (unknown) date) Allergy (Unknown, unknown) Verified 11/16/22 11:38) (unknown) (no (unknown) (unknown) benzocaine (units (unk nown) date) [BENZOCAINE] Allergy unknown) (Unknown, Verified 11/16/22 11:38) (unknown) (no (unknown) (unknown) benzonatate 100 mg (units (unknown) date) capsule 100 mg PO unknown) BID-TID PRN cough #60 caps 10/12/22 [Rx (unknown) (no (unknown) (unknown) biotin 1 mg capsule (unit s (unknown) date) 1 mg PO DAILY unknown) 05/26/21 [History Confirmed 11/16/22] (unknown) (no (unknown) (unknown) butamben [From (units (unknown) date) CETACAINE] Allergy unknown) (Unknown, Verified 11/16/22 11:38) (unknown) (no (unknown) (unknown) cholecalciferol (units (unknown) date) (vitamin D3) 250 mcg unknown) (10,000 unit) capsule 250 mcg PO DAILY (unknown) (no (unknown) (unknown) clonazepam 1 mg (units (unknown) date) tablet 1 - 2 mg PO unknown) BID 05/26/21 [History Confirmed 11/16/22] (unknown) (no (unknown) (unknown) dexamethasone (units ( unknown) date) [DEXAMETHASONE] unknown) Allergy (Unknown, Verified 11/16/22 11:38) (unknown) (no (unknown) (unknown) dextroamphetamine-am (uni ts (unknown) date) phetamine 10 mg unknown) tablet (Adderall) 20 mg PO BID #0 tabs (unknown) (no (unknown) (unknown) dicloxacillin (units ( unknown) date) [DICLOXACILLIN] unknown) Allergy (Unknown, Verified 11/16/22 11:38) (unknown) (no (unknown) (unknown) dihydroergocristine (unit s (unknown) date) [DIHYDROERGOCRISTINE] unknown) Allergy (Unknown, Verified 11/16/22 (unknown) (no (unknown) (unknown) dihydroergotamine (units (unknown) date) [DIHYDROERGOTAMINE] unknown) Allergy (Unknown, Verified 11/16/22 11:38) (unknown) (no (unknown) (unknown) diphenhydramine (units (unknown) date) [DIPHENHYDRAMINE] unknown) Allergy (Unknown, Verified 11/16/22 11:38) (unknown) (no (unknown) (unknown) epinephrine 0.3 (units (unknown) date) mg/0.3 mL injection, unknown) auto-injector 0.3 mg IM ONCE 05/26/21 (unknown) (no (unknown) (unknown) frovatriptan (units (u nknown) date) [FROVATRIPTAN] unknown) Allergy (Unknown, Verified 11/16/22 11:38) (unknown) (no (unknown) (unknown) have esophageal (units (unknown) date) spasms. unknown) (unknown) (no (unknown) (unknown) have occurred. If (units (unknown) date) there are any unknown) questions, please contact the Medical Records (unknown) (no (unknown) (unknown) hemorrhage or (units ( unknown) date) perforation, K92.2 - unknown) Gastrointestinal hemorrhage, unspecified (unknown) (no (unknown) (unknown) hydromorphone 2 mg (units (unknown) date) tablet 2 mg PO Q4-6H unknown) PRN 11/16/22 [History Confirmed (unknown) (no (unknown) (unknown) hydroxyzine (units (un known) date) [HYDROXYZINE] Allergy unknown) (Unknown, Verified 11/16/22 11:38) (unknown) (no (unknown) (unknown) ibuprofen (units (unkn own) date) [IBUPROFEN] Allergy unknown) (Unknown, Verified 11/16/22 11:38) (unknown) (no (unknown) (unknown) latex [LATEX] (units ( unknown) date) Allergy (Unknown, unknown) Verified 11/16/22 11:38) (unknown) (no (unknown) (unknown) magnesium glycinate (unit [...] (unknown) date) [METOCLOPRAMIDE] unknown) Allergy (Unknown, Verified 11/16/22 11:38) (unknown) (no (unknown) (unknown) nortriptyline (units ( unknown) date) [NORTRIPTYLINE] unknown) Allergy (Unknown, Verified 11/16/22 11:38) (unknown) (no (unknown) (unknown) occurred due to the (unit s (unknown) date) inherent limitations unknown) of voice recognition software. Please (unknown) (no (unknown) (unknown) perforation, K92.2 - (uni ts (unknown) date) Gastrointestinal unknown) hemorrhage, unspecified, R10.11 - Right (unknown) (no (unknown) (unknown) prasterone (DHEA) (units (unknown) date) [PRASTERONE (DHEA)] unknown) Allergy (Unknown, Verified 11/16/22 11:38) (unknown) (no (unknown) (unknown) prednisone (units (unk nown) date) [PREDNISONE] Allergy unknown) (Unknown, Verified 11/16/22 11:38) (unknown) (no (unknown) (unknown) pregabalin 100 mg (units (unknown) date) capsule (Lyrica) 200 unknown) mg PO BID 05/26/21 [History Confirmed (unknown) (no (unknown) (unknown) prochlorperazine (units (unknown) date) [From COMPAZINE] unknown) Allergy (Unknown, Verified 11/16/22 11:38) (unknown) (no (unknown) (unknown) promethazine [From (units (unknown) date) PHENERGAN] Allergy unknown) (Unknown, Verified 11/16/22 11:38) (unknown) (no (unknown) (unknown) read the note (units ( unknown) date) carefully and unknown) recognize, using context, where these substitutions (unknown) (no (unknown) (unknown) rizatriptan (units (un known) date) [RIZATRIPTAN] Allergy unknown) (Unknown, Verified 11/16/22 11:38) (unknown) (no (unknown) (unknown) sertraline (Zoloft) (unit s (unknown) date) 50 mg PO DAILY 60 unknown) tabs 0RF (unknown) (no (unknown) (unknown) sertraline 50 mg (units (unknown) date) tablet (Zoloft) 50 mg unknown) PO DAILY #60 tabs 11/16/22 [Rx Confirmed (unknown) (no (unknown) (unknown) shortness of breath (unit s (unknown) date) or wheezing #8.5 unknown) grams 10/10/22 [Rx Confirmed 11/16/22] (unknown) (no (unknown) (unknown) software. Although (units (unknown) date) every effort is made unknown) to edit content, plastic block boiler reliner errors (unknown) (no (unknown) (unknown) sumatriptan (units (un known) date) [SUMATRIPTAN] Allergy unknown) (Unknown, Verified 11/16/22 11:38) (unknown) (no (unknown) (unknown) syndrome, (units (unkn own) date) fibromyalgia who is unknown) here because of persistent COVID symptoms. Does (unknown) (no (unknown) (unknown) temazepam 30 mg (units (unknown) date) capsule 30 mg PO unknown) BEDTIME PRN 05/26/21 [History Confirmed (unknown) (no (unknown) (unknown) tetracaine (units (unk nown) date) [TETRACAINE] Allergy unknown) (Unknown, Verified 11/16/22 11:38) (unknown) (no (unknown) (unknown) topiramate [From (units (unknown) date) TOPAMAX] Allergy unknown) (Unknown, Verified 11/16/22 11:38) (unknown) (no (unknown) (unknown) unspecified, K25.9 - (uni ts (unknown) date) Gastric ulcer, unknown) unspecified as acute or chronic, without (unknown) (no (unknown) (unknown) upper quadrant pain (unit s (unknown) date) unknown) (unknown) (no (unknown) (unknown) valproic acid (units ( unknown) date) [VALPROIC ACID] unknown) Allergy (Unknown, Verified 11/16/22 11:38) (unknown) (no (unknown) (unknown) vancomycin (units (unk nown) date) [VANCOMYCIN] Allergy unknown) (Unknown, Verified 11/16/22 11:38) (unknown) (no (unknown) (unknown) verapamil (units (unkn own) date) [VERAPAMIL] Allergy unknown) (Unknown, Verified 11/16/22 11:38) (unknown) (no (unknown) (unknown) zinc sulfate 50 mg (units (unknown) date) zinc (220 mg) tablet unknown) 50 mg PO DAILY 05/26/21 [History Result panel 167 (unknown) (no (unknown) (unknown) (no value) (units (unk nown) date) unknown) (unknown) (no (unknown) (unknown) (1) GI bleeding: (units (unknown) date) unknown) (unknown) (no (unknown) (unknown) (2) Gastric ulcer: (units (unknown) date) unknown) (unknown) (no (unknown) (unknown) (3) PTSD (units (unkno wn) date) (post-traumatic unknown) stress disorder): (unknown) (no (unknown) (unknown) (4) Right upper (units (unknown) date) quadrant pain: unknown) (unknown) (no (unknown) (unknown) 11/16/22 (units (unkno wn) date) unknown) (unknown) (no (unknown) (unknown) 11/16/22] (units (unkn own) date) unknown) (unknown) (no (unknown) (unknown) 05/26/21 [History (units (unknown) date) Confirmed 11/16/22] unknown) (unknown) (no (unknown) (unknown) 11:38) (units (unkno wn) date) unknown) (unknown) (no (unknown) (unknown) 11:42 (units (unkno wn) date) unknown) (unknown) (no (unknown) (unknown) Age/Sex: 37 / F Date (uni ts (unknown) date) of Service: unknown) (unknown) (no (unknown) (unknown) Allergies (units (unkn own) date) unknown) (unknown) (no (unknown) (unknown) [place] [address] (unit s (unknown) date) unknown) (unknown) (no (unknown) (unknown) Anesthesia (units (unk nown) date) unknown) (unknown) (no (unknown) (unknown) Ankle pain (units (unk nown) date) unknown) (unknown) (no (unknown) (unknown) Anxiety (units (unkno wn) date) unknown) (unknown) (no (unknown) (unknown) Assessment + Plan (units (unknown) date) unknown) (unknown) (no (unknown) (unknown) Asthma (units (unkno wn) date) unknown) (unknown) (no (unknown) (unknown) Attending Dr: (units ( unknown) date) Laurent Lucas MD unknown) (unknown) (no (unknown) (unknown) Bibi is a 37y (units (unknown) date) female with history unknown) of ADHD, anxiety depression, chronic pain (unknown) (no (unknown) (unknown) BLISTERS AT SITE (units (unknown) date) unknown) (unknown) (no (unknown) (unknown) BP 128/80 (units (unkn own) date) unknown) (unknown) (no [...] unknown) (unknown) (no (unknown) (unknown) Chief Complaint: (units (unknown) date) Follow-up COVID unknown) (unknown) (no (unknown) (unknown) Complete Blood Count (uni ts (unknown) date) AUTO DIFF Today unknown) F43.10 - Post-traumatic stress disorder, (unknown) (no (unknown) (unknown) Comprehensive (units ( unknown) date) Metabolic Panel Today unknown) F43.10 - Post-traumatic stress disorder, (unknown) (no (unknown) (unknown) Confirmed 11/16/22] (unit s (unknown) date) unknown) (unknown) (no (unknown) (unknown) : 1985 (units (unknown) date) Acct:[id number] unknown) (unknown) (no (unknown) (unknown) Depression (units (unk nown) date) unknown) (unknown) (no (unknown) (unknown) Dept at (units (unkno wn) date) . unknown) (unknown) (no (unknown) (unknown) Details: (units (unkno wn) date) unknown) (unknown) (no (unknown) (unknown) Documented By: (units (unknown) date) Laurent Lucas MD unknown) 11/16/22 1137 (unknown) (no (unknown) (unknown) Draft (units (unkno [...] date) Stroke unknown) (unknown) (no (unknown) (unknown) H pylori, IgM, IgG, (unit s (unknown) date) IgA Today R10.9 - unknown) Unspecified abdominal pain (unknown) (no (unknown) (unknown) HPI (units (unkno wn) date) unknown) (unknown) (no (unknown) (unknown) Headache (units (unkno wn) date) unknown) (unknown) (no (unknown) (unknown) Hearing [...] repair unknown) (unknown) (no (unknown) (unknown) Intake performed by: (uni ts (unknown) date) Dorina Griffiths unknown) (unknown) (no (unknown) (unknown) Intake (units (unkno wn) date) unknown) (unknown) (no (unknown) (unknown) Intake- Clincial (units (unknown) date) Staff unknown) (unknown) (no (unknown) (unknown) Interstitial (units (u nknown) date) cystitis unknown) (unknown) (no (unknown) (unknown) K25.9 - Gastric (units (unknown) date) ulcer, unspecified as unknown) acute or chronic, without hemorrhage or (unknown) (no (unknown) (unknown) Kidney stones (units ( unknown) date) unknown) (unknown) (no (unknown) (unknown) Loc: [facility] (units (unkno wn) date) unknown) (unknown) (no (unknown) (unknown) [id number] (units (unk nown) date) unknown) (unknown) (no [...] date) Cancer unknown) (unknown) (no (unknown) (unknown) [place] H[place] with cck 1 (units (unknown) date) Week F43.10 - unknown) Post-traumatic stress disorder, unspecified, (unknown) (no (unknown) (unknown) New (units (unkno [...] ts (unknown) date) Allergy (Mild, unknown) Uncoded 11/16/22 11:38) (unknown) (no (unknown) (unknown) PTSD (post-traumatic (uni ts (unknown) date) stress disorder) unknown) (unknown) (no (unknown) (unknown) Painful menstrual (units (unknown) date) periods unknown) (unknown) (no (unknown) (unknown) Patient: (units (unkno wn) date) MaxwellBibi unknown) MR#: (unknown) (no (unknown) (unknown) Position Sitting (units (unknown) date) unknown) (unknown) (no (unknown) (unknown) Pulse 79 (units (unkno wn) date) unknown) (unknown) (no (unknown) (unknown) Pulse Oximetry (%) (units (unknown) date) 98 unknown) (unknown) (no (unknown) (unknown) Pulse Source [...] Former smoker unknown) (unknown) (no (unknown) (unknown) Status: Acute (units ( unknown) date) unknown) (unknown) (no (unknown) (unknown) Stroke (units [...] unknown) (unknown) (no (unknown) (unknown) Visit Reasons: f/u (units (unknown) date) with long covid 03 unknown) (unknown) (no (unknown) (unknown) Vitals (units (unkno wn) date) unknown) (unknown) (no (unknown) (unknown) Weight 190 lb (units ( unknown) date) unknown) (unknown) (no (unknown) (unknown) [History Confirmed (units (unknown) date) 11/16/22] unknown) (unknown) (no (unknown) (unknown) acetaminophen (units ( unknown) date) [ACETAMINOPHEN] unknown) Allergy (Unknown, Verified 11/16/22 11:38) (unknown) (no (unknown) (unknown) adhesive [ADHESIVE] (unit s (unknown) date) Allergy (Unknown, unknown) Verified 11/16/22 11:38) (unknown) (no (unknown) (unknown) albuterol sulfate 90 (uni ts (unknown) date) mcg/actuation aerosol unknown) inhaler 2 puff inhalation Q6H PRN (unknown) (no (unknown) (unknown) amitriptyline (units ( unknown) date) [AMITRIPTYLINE] unknown) Allergy (Unknown, Verified 11/16/22 11:38) (unknown) (no (unknown) (unknown) aspirin [ASPIRIN] (units (unknown) date) Allergy (Unknown, unknown) Verified 11/16/22 11:38) (unknown) (no (unknown) (unknown) benzocaine (units (unk nown) date) [BENZOCAINE] Allergy unknown) (Unknown, Verified 11/16/22 11:38) (unknown) (no (unknown) (unknown) benzonatate 100 mg (units (unknown) date) capsule 100 mg PO unknown) BID-TID PRN cough #60 caps 10/12/22 [Rx (unknown) (no (unknown) (unknown) biotin 1 mg capsule (unit s (unknown) date) 1 mg PO DAILY unknown) 05/26/21 [History Confirmed 11/16/22] (unknown) (no (unknown) (unknown) butamben [From (units (unknown) date) CETACAINE] Allergy unknown) (Unknown, Verified 11/16/22 11:38) (unknown) (no (unknown) (unknown) cholecalciferol (units (unknown) date) (vitamin D3) 250 mcg unknown) (10,000 unit) capsule 250 mcg PO DAILY (unknown) (no (unknown) (unknown) clonazepam 1 mg (units (unknown) date) tablet 1 - 2 mg PO unknown) BID 05/26/21 [History Confirmed 11/16/22] (unknown) (no (unknown) (unknown) dexamethasone (units ( unknown) date) [DEXAMETHASONE] unknown) Allergy (Unknown, Verified 11/16/22 11:38) (unknown) (no (unknown) (unknown) dextroamphetamine-am (uni ts (unknown) date) phetamine 10 mg unknown) tablet (Adderall) 20 mg PO BID #0 tabs (unknown) (no (unknown) (unknown) dicloxacillin (units ( unknown) date) [DICLOXACILLIN] unknown) Allergy (Unknown, Verified 11/16/22 11:38) (unknown) (no (unknown) (unknown) dihydroergocristine (unit s (unknown) date) [DIHYDROERGOCRISTINE] unknown) Allergy (Unknown, Verified 11/16/22 (unknown) (no (unknown) (unknown) dihydroergotamine (units (unknown) date) [DIHYDROERGOTAMINE] unknown) Allergy (Unknown, Verified 11/16/22 11:38) (unknown) (no (unknown) (unknown) diphenhydramine (units (unknown) date) [DIPHENHYDRAMINE] unknown) Allergy (Unknown, Verified 11/16/22 11:38) (unknown) (no (unknown) (unknown) epinephrine 0.3 (units (unknown) date) mg/0.3 mL injection, unknown) auto-injector 0.3 mg IM ONCE 05/26/21 (unknown) (no (unknown) (unknown) frovatriptan (units (u nknown) date) [FROVATRIPTAN] unknown) Allergy (Unknown, Verified 11/16/22 11:38) (unknown) (no (unknown) (unknown) have esophageal (units (unknown) date) spasms. unknown) (unknown) (no (unknown) (unknown) have occurred. If (units (unknown) date) there are any unknown) questions, please contact the Medical Records (unknown) (no (unknown) (unknown) hemorrhage or (units ( unknown) date) perforation, K92.2 - unknown) Gastrointestinal hemorrhage, unspecified (unknown) (no (unknown) (unknown) hydromorphone 2 mg (units (unknown) date) tablet 2 mg PO Q4-6H unknown) PRN 11/16/22 [History Confirmed (unknown) (no (unknown) (unknown) hydroxyzine (units (un known) date) [HYDROXYZINE] Allergy unknown) (Unknown, Verified 11/16/22 11:38) (unknown) (no (unknown) (unknown) ibuprofen (units (unkn own) date) [IBUPROFEN] Allergy unknown) (Unknown, Verified 11/16/22 11:38) (unknown) (no (unknown) (unknown) latex [LATEX] (units ( unknown) date) Allergy (Unknown, unknown) Verified 11/16/22 11:38) (unknown) (no (unknown) (unknown) magnesium glycinate (unit [...] (unknown) date) [METOCLOPRAMIDE] unknown) Allergy (Unknown, Verified 11/16/22 11:38) (unknown) (no (unknown) (unknown) nortriptyline (units ( unknown) date) [NORTRIPTYLINE] unknown) Allergy (Unknown, Verified 11/16/22 11:38) (unknown) (no (unknown) (unknown) occurred due to the (unit s (unknown) date) inherent limitations unknown) of voice recognition software. Please (unknown) (no (unknown) (unknown) perforation, K92.2 - (uni ts (unknown) date) Gastrointestinal unknown) hemorrhage, unspecified, R10.11 - Right (unknown) (no (unknown) (unknown) prasterone (DHEA) (units (unknown) date) [PRASTERONE (DHEA)] unknown) Allergy (Unknown, Verified 11/16/22 11:38) (unknown) (no (unknown) (unknown) prednisone (units (unk nown) date) [PREDNISONE] Allergy unknown) (Unknown, Verified 11/16/22 11:38) (unknown) (no (unknown) (unknown) pregabalin 100 mg (units (unknown) date) capsule (Lyrica) 200 unknown) mg PO BID 05/26/21 [History Confirmed (unknown) (no (unknown) (unknown) prochlorperazine (units (unknown) date) [From COMPAZINE] unknown) Allergy (Unknown, Verified 11/16/22 11:38) (unknown) (no (unknown) (unknown) promethazine [From (units (unknown) date) PHENERGAN] Allergy unknown) (Unknown, Verified 11/16/22 11:38) (unknown) (no (unknown) (unknown) read the note (units ( unknown) date) carefully and unknown) recognize, using context, where these substitutions (unknown) (no (unknown) (unknown) rizatriptan (units (un known) date) [RIZATRIPTAN] Allergy unknown) (Unknown, Verified 11/16/22 11:38) (unknown) (no (unknown) (unknown) sertraline (Zoloft) (unit s (unknown) date) 50 mg PO DAILY 60 unknown) tabs 0RF (unknown) (no (unknown) (unknown) sertraline 50 mg (units (unknown) date) tablet (Zoloft) 50 mg unknown) PO DAILY #60 tabs 11/16/22 [Rx Confirmed (unknown) (no (unknown) (unknown) shortness of breath (unit s (unknown) date) or wheezing #8.5 unknown) grams 10/10/22 [Rx Confirmed 11/16/22] (unknown) (no (unknown) (unknown) software. Although (units (unknown) date) every effort is made unknown) to edit content, plastic block boiler reliner errors (unknown) (no (unknown) (unknown) sumatriptan (units (un known) date) [SUMATRIPTAN] Allergy unknown) (Unknown, Verified 11/16/22 11:38) (unknown) (no (unknown) (unknown) syndrome, (units (unkn own) date) fibromyalgia who is unknown) here because of persistent COVID symptoms. Does (unknown) (no (unknown) (unknown) temazepam 30 mg (units (unknown) date) capsule 30 mg PO unknown) BEDTIME PRN 05/26/21 [History Confirmed (unknown) (no (unknown) (unknown) tetracaine (units (unk nown) date) [TETRACAINE] Allergy unknown) (Unknown, Verified 11/16/22 11:38) (unknown) (no (unknown) (unknown) topiramate [From (units (unknown) date) TOPAMAX] Allergy unknown) (Unknown, Verified 11/16/22 11:38) (unknown) (no (unknown) (unknown) unspecified, K25.9 - (uni ts (unknown) date) Gastric ulcer, unknown) unspecified as acute or chronic, without (unknown) (no (unknown) (unknown) upper quadrant pain (unit s (unknown) date) unknown) (unknown) (no (unknown) (unknown) valproic acid (units ( unknown) date) [VALPROIC ACID] unknown) Allergy (Unknown, Verified 11/16/22 11:38) (unknown) (no (unknown) (unknown) vancomycin (units (unk nown) date) [VANCOMYCIN] Allergy unknown) (Unknown, Verified 11/16/22 11:38) (unknown) (no (unknown) (unknown) verapamil (units (unkn own) date) [VERAPAMIL] Allergy unknown) (Unknown, Verified 11/16/22 11:38) (unknown) (no (unknown) (unknown) zinc sulfate 50 mg (units (unknown) date) zinc (220 mg) tablet unknown) 50 mg PO DAILY 05/26/21 [History Result panel 168 (unknown) (no date) (unknown) (unknown) <9.0 units 7901- 2 (unknown) (no date) (unknown) (unknown) <9.0 units 7903- 8 (unknown) (no date) (unknown) (unknown) <9.0 units (unkn own) (unknown) (no date) (unknown) (unknown) <9.0 units (unkn own) (unknown) (no date) (unknown) (unknown) 0.14 index value 51 76-3 (unknown) (no date) (unknown) (unknown) 0.14 index value (u nknown) Result panel 169 (unknown) (no date) (unknown) (unknown) 0 /ul (unkn own) (unknown) (no date) (unknown) (unknown) 0.7 % (unkn own) (unknown) (no date) (unknown) (unknown) 1.1 % (unkn own) (unknown) (no date) (unknown) (unknown) 100 /ul (unkn own) (unknown) (no date) (unknown) (unknown) 13.9 g/dl (unkn own) (unknown) (no date) (unknown) (unknown) 14.0 % (unkn own) (unknown) (no date) (unknown) (unknown) 2000 /ul (unkn own) (unknown) (no date) (unknown) (unknown) 211 x10 3/ul (unkn own) (unknown) (no date) (unknown) (unknown) 2700 /ul (unkn own) (unknown) (no date) (unknown) (unknown) 28.7 pg (unkn own) (unknown) (no date) (unknown) (unknown) 33.7 % (unkn own) (unknown) (no date) (unknown) (unknown) 38.5 % (unkn own) (unknown) (no date) (unknown) (unknown) 4.83 x10 6/ul (unkn own) (unknown) (no date) (unknown) (unknown) 400 /ul (unkn own) (unknown) (no date) (unknown) (unknown) 41.1 % (unkn own) (unknown) (no date) (unknown) (unknown) 5.3 x10 3/ul (unkn own) (unknown) (no date) (unknown) (unknown) 51.8 % (unkn own) (unknown) (no date) (unknown) (unknown) 7.9 % (unkn own) (unknown) (no date) (unknown) (unknown) 85.0 fl (unkn own) Result panel 170 (unknown) (no date) (unknown) (unknown) > 60 ml/min (unkn own) (unknown) (no date) (unknown) (unknown) > 60 ml/min (unkn own) (unknown) (no date) (unknown) (unknown) 0.5 mg/dl (unkn own) (unknown) (no date) (unknown) (unknown) 0.59 mg/dl (unkn own) (unknown) (no date) (unknown) (unknown) 1.3 (units unknown) (unknown) (unknown) (no date) (unknown) (unknown) 10.0 mg/dl (unkn own) (unknown) (no date) (unknown) (unknown) 106 mmol/l (unkn own) (unknown) (no date) (unknown) (unknown) 12 mg/dl (unkn own) (unknown) (no date) (unknown) (unknown) 140 mmol/l (unkn own) (unknown) (no date) (unknown) (unknown) 20.3 (units unknown) (unknown) (unknown) (no date) (unknown) (unknown) 23 mmol/l (unkn own) (unknown) (no date) (unknown) (unknown) 26 iu/l (unkn own) (unknown) (no date) (unknown) (unknown) 27 iu/l (unkn own) (unknown) (no date) (unknown) (unknown) 3.5 g/dl (unkn own) (unknown) (no date) (unknown) (unknown) 4.5 g/dl (unkn own) (unknown) (no date) (unknown) (unknown) 4.7 mmol/l (unkn own) (unknown) (no date) (unknown) (unknown) 59 u/l (unkn own) (unknown) (no date) (unknown) (unknown) 8.0 g/dl (unkn own) (unknown) (no date) (unknown) (unknown) 82 mg/dl (unkn own) (unknown) (no date) (unknown) (unknown) 82 mg/dl (unkn own) Result panel 171 (unknown) (no (unknown) (unknown) (no value) (units (unk nown) date) unknown) (unknown) (no (unknown) (unknown) (1) Right upper (units (unknown) date) quadrant pain: unknown) (unknown) (no (unknown) (unknown) (2) GI bleeding: (units (unknown) date) unknown) (unknown) (no (unknown) (unknown) (3) Gastric ulcer: (units (unknown) date) unknown) (unknown) (no (unknown) (unknown) (4) PTSD (units (unkno wn) date) (post-traumatic unknown) stress disorder): (unknown) (no (unknown) (unknown) (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) (unknown) (no (unknown) (unknown) (6) Hemoptysis: (units (unknown) date) unknown) (unknown) (no (unknown) (unknown) 11/16/22 1504 (units ( unknown) date) unknown) (unknown) (no (unknown) (unknown) 11/16/22 (units (unkno wn) date) unknown) (unknown) (no (unknown) (unknown) 11/16/22] (units (unkn own) date) unknown) (unknown) (no (unknown) (unknown) 05/26/21 [History (units (unknown) date) Confirmed 11/16/22] unknown) (unknown) (no (unknown) (unknown) 11:38) (units (unkno wn) date) unknown) (unknown) (no (unknown) (unknown) 11:42 (units (unkno wn) date) unknown) (unknown) (no (unknown) (unknown) Age/Sex: 37 / F Date (uni ts (unknown) date) of Service: unknown) (unknown) (no (unknown) (unknown) Allergies (units (unkn own) date) unknown) (unknown) (no (unknown) (unknown) [place] [id number] (unit s (unknown) date) unknown) (unknown) (no (unknown) (unknown) Anesthesia (units (unk nown) date) unknown) (unknown) (no (unknown) (unknown) Ankle pain (units (unk nown) date) unknown) (unknown) (no (unknown) (unknown) Anxiety (units (unkno wn) date) unknown) (unknown) (no (unknown) (unknown) Appearance: (units (un known) date) unknown) (unknown) (no (unknown) (unknown) Assessment + Plan (units (unknown) date) unknown) (unknown) (no (unknown) (unknown) Asthma (units (unkno wn) date) unknown) (unknown) (no (unknown) (unknown) Attending Dr: (units ( unknown) date) Laurent Lucas MD unknown) (unknown) (no (unknown) (unknown) Bibi is a 37y (units (unknown) date) female with history unknown) of ADHD, anxiety depression, chronic pain (unknown) (no (unknown) (unknown) BLISTERS AT SITE (units (unknown) date) unknown) (unknown) (no (unknown) (unknown) BP 128/80 (units (unkn own) date) unknown) (unknown) (no [...] unknown) (unknown) (no (unknown) (unknown) Chief Complaint: (units (unknown) date) Follow-up for unknown) multiple concerns (unknown) (no (unknown) (unknown) Cognition: (units (unk nown) date) unknown) (unknown) (no (unknown) (unknown) Complete Blood Count (uni ts (unknown) date) AUTO DIFF Today unknown) F43.10 - Post-traumatic stress disorder, (unknown) (no (unknown) (unknown) Comprehensive (units ( unknown) date) Metabolic Panel Today unknown) F43.10 - Post-traumatic stress disorder, (unknown) (no (unknown) (unknown) Confirmed 11/16/22] (unit s (unknown) date) unknown) (unknown) (no (unknown) (unknown) Const General: (units (unknown) date) pleasant, sitting in unknown) wheelchair. Her is here with her. (unknown) (no (unknown) (unknown) Counseling and (units (unknown) date) educating the unknown) patient/family/caregi eric: 15 (unknown) (no (unknown) (unknown) : 1985 (units (unknown) date) Acct:[id number] unknown) (unknown) (no (unknown) (unknown) Depression (units (unk nown) date) unknown) (unknown) (no (unknown) (unknown) Dept at (units (unkno wn) date) . unknown) (unknown) (no (unknown) (unknown) Details: (units (unkno wn) date) unknown) (unknown) (no (unknown) (unknown) Documented By: (units (unknown) date) Laurent Lucas MD unknown) 11/16/22 1137 (unknown) (no (unknown) (unknown) Documenting clinical (uni ts (unknown) date) information in unknown) EHR/Medical record: 5 (unknown) (no (unknown) (unknown) Effort + Inspection: (uni ts (unknown) date) unknown) (unknown) (no (unknown) (unknown) Endometriosis (units ( unknown) date) unknown) (unknown) (no (unknown) (unknown) Exam Narrative (units (unknown) date) unknown) (unknown) (no (unknown) (unknown) Exam Narrative: (units (unknown) date) unknown) (unknown) (no (unknown) (unknown) Exam (units (unkno wn) date) unknown) (unknown) (no (unknown) (unknown) Extrem (units (unkno wn) date) unknown) (unknown) (no [...] date) unknown) (unknown) (no (unknown) (unknown) GI bleed (units (unkno wn) date) type/associated unknown) pathology: unspecified gastrointestinal (unknown) (no (unknown) (unknown) GI bleeding (units (un known) date) unknown) (unknown) (no (unknown) (unknown) Gastric ulcer (units ( unknown) date) chronicity: unknown) unspecified ulcer chronicity Gastric ulcer (unknown) (no (unknown) (unknown) Gastric ulcer (units ( unknown) date) unknown) (unknown) (no (unknown) (unknown) Gastroenterology (units (unknown) date) benefits of low unknown) FODMAPs. Also has noted some blood in stool. (unknown) (no (unknown) (unknown) General: (units (unkno wn) date) unknown) (unknown) (no (unknown) (unknown) Grandfather (uni ts (unknown) date) Stroke unknown) (unknown) (no (unknown) (unknown) Grandmother Breast (units (unknown) date) cancer unknown) (unknown) (no (unknown) (unknown) Grandmother (uni ts (unknown) date) Stroke unknown) (unknown) (no (unknown) (unknown) H pylori, IgM, IgG, (unit s (unknown) date) IgA Today R10.9 - unknown) Unspecified abdominal pain (unknown) (no (unknown) (unknown) HPI (units (unkno wn) date) unknown) (unknown) (no (unknown) (unknown) Headache (units (unkno wn) date) unknown) (unknown) (no (unknown) (unknown) Hearing [...] repair unknown) (unknown) (no (unknown) (unknown) Intake performed by: (uni ts (unknown) date) Dorina Griffiths unknown) (unknown) (no (unknown) (unknown) Intake (units (unkno wn) date) unknown) (unknown) (no (unknown) (unknown) Intake- Clincial (units (unknown) date) Staff unknown) (unknown) (no (unknown) (unknown) Interstitial (units (u nknown) date) cystitis unknown) (unknown) (no (unknown) (unknown) K25.9 - Gastric (units (unknown) date) ulcer, unspecified as unknown) acute or chronic, without hemorrhage or (unknown) (no (unknown) (unknown) Kidney stones (units ( unknown) date) unknown) (unknown) (no (unknown) (unknown) Loc: [facility] (units (unkno wn) date) unknown) (unknown) (no (unknown) (unknown) [id number] (units (unk nown) date) unknown) (unknown) (no (unknown) (unknown) Medical History (units (unknown) date) (Updated 11/16/22 @ unknown) 15:01 by Laurent Lucas MD) (unknown) (no (unknown) (unknown) Medications (units (un known) date) unknown) (unknown) (no (unknown) (unknown) Medications: (units (u nknown) date) unknown) (unknown) (no (unknown) (unknown) Mental health (units ( unknown) date) problem unknown) (unknown) (no (unknown) (unknown) Migraines (units (unkn own) date) unknown) (unknown) (no (unknown) (unknown) Mother (units (unknown) date) Cancer unknown) (unknown) (no (unknown) (unknown) [place] HIDA with cck 1 (units (unknown) date) Week F43.10 - unknown) Post-traumatic stress disorder, unspecified, (unknown) (no (unknown) (unknown) Neuro (units (unkno wn) date) unknown) (unknown) (no (unknown) (unknown) New (units (unkno wn) date) unknown) (unknown) (no (unknown) (unknown) Obtaining and/or (units (unknown) date) reviewing separately unknown) obtained history: 3 () (unknown) (no (unknown) (unknown) Ordering (units (unkno wn) date) medications, tests, unknown) or procedures: 3 (unknown) (no (unknown) (unknown) Orders (units (unkno wn) date) unknown) (unknown) (no (unknown) (unknown) Orders: (units (unkno wn) date) unknown) (unknown) (no (unknown) (unknown) Orientation: alert, (unit s (unknown) date) awake unknown) (unknown) (no (unknown) (unknown) Ovarian cyst (units (u nknown) date) unknown) (unknown) (no (unknown) (unknown) Oxygen Delivery (units (unknown) date) Method room air unknown) (unknown) (no (unknown) (unknown) PFSH (units (unkno wn) date) unknown) (unknown) (no (unknown) (unknown) PLASTIC MEDICAL TAPE (uni ts (unknown) date) Allergy (Mild, unknown) Uncoded 11/16/22 11:38) (unknown) (no (unknown) (unknown) PTSD (post-traumatic (uni ts (unknown) date) stress disorder) unknown) (unknown) (no (unknown) (unknown) Painful menstrual (units (unknown) date) periods unknown) (unknown) (no (unknown) (unknown) Patient: (units (unkno wn) date) MaxwellBibi W unknown) MR#: (unknown) (no (unknown) (unknown) Performing a (units (u nknown) date) medically appropriate unknown) exam and/or evaluation: 12 (unknown) (no (unknown) (unknown) Plan (units (unkno wn) date) unknown) (unknown) (no (unknown) (unknown) Position Sitting (units (unknown) date) unknown) (unknown) (no (unknown) (unknown) Preparing to see the (uni ts (unknown) date) patient, i.e., chart unknown) review, review of tests: 5 (unknown) (no (unknown) (unknown) Psych (units (unkno wn) date) unknown) (unknown) (no (unknown) (unknown) Pulse 79 (units (unkno wn) date) unknown) (unknown) (no (unknown) (unknown) Pulse Oximetry (%) (units (unknown) date) 98 unknown) (unknown) (no (unknown) (unknown) Pulse Source Monitor (uni ts (unknown) date) unknown) (unknown) (no (unknown) (unknown) Qualified Code(s): (units (unknown) date) K25.9 - Gastric unknown) ulcer, unspecified as acute or chronic, (unknown) (no (unknown) (unknown) Qualifiers: (units (un known) date) unknown) (unknown) (no (unknown) (unknown) Reason For Visit (units (unknown) date) unknown) (unknown) (no (unknown) (unknown) Resp (units (unkno wn) date) unknown) (unknown) (no (unknown) (unknown) Ruptured tympanic (units (unknown) date) membrane unknown) (unknown) (no (unknown) (unknown) She does have (units ( unknown) date) upcoming appointment unknown) with Gastroenterology. Reports history of (unknown) (no (unknown) (unknown) She does note that (units (unknown) date) she still has some unknown) blood that she coughs up in the morning (unknown) (no (unknown) (unknown) Shoulder pain (units ( unknown) date) () unknown) (unknown) (no (unknown) (unknown) Signed By: (units (unk nown) date) <Electronically unknown) signed by Laurent Lucas MD> (unknown) (no (unknown) (unknown) Signed (units (unkno wn) date) unknown) (unknown) (no (unknown) (unknown) Sitting in (units (unk nown) date) wheelchair unknown) (unknown) (no (unknown) (unknown) Smoking Status: (units (unknown) date) Former smoker unknown) (unknown) (no (unknown) (unknown) Status: Acute (units ( unknown) date) unknown) (unknown) (no (unknown) (unknown) Stroke (units [...] using voice recognition (unknown) (no (unknown) (unknown) Time Coding Minutes (unit s (unknown) date) Spent: (must be on unknown) same date of service/appointment) (unknown) (no (unknown) (unknown) Time Spent (units (unk nown) date) unknown) (unknown) (no (unknown) (unknown) Tinnitus (units (unkno wn) date) unknown) (unknown) (no (unknown) (unknown) Tobacco + Substance (unit s (unknown) date) Use unknown) (unknown) (no (unknown) (unknown) Tobacco Status (units (unknown) date) unknown) (unknown) (no (unknown) (unknown) Total Time: 41 (units (unknown) date) unknown) (unknown) (no (unknown) (unknown) Vertigo (units (unkno wn) date) unknown) (unknown) (no (unknown) (unknown) Visit Reasons: f/u (units (unknown) date) with long covid 03 unknown) (unknown) (no (unknown) (unknown) Vitals (units (unkno wn) date) unknown) (unknown) (no (unknown) (unknown) Weight 190 lb (units ( unknown) date) unknown) (unknown) (no (unknown) (unknown) [History Confirmed (units (unknown) date) 11/16/22] unknown) (unknown) (no (unknown) (unknown) acetaminophen (units ( unknown) date) [ACETAMINOPHEN] unknown) Allergy (Unknown, Verified 11/16/22 11:38) (unknown) (no (unknown) (unknown) adhesive [ADHESIVE] (unit s (unknown) date) Allergy (Unknown, unknown) Verified 11/16/22 11:38) (unknown) (no (unknown) (unknown) affect and normal (units (unknown) date) thought content unknown) (unknown) (no (unknown) (unknown) albuterol sulfate 90 (uni ts (unknown) date) mcg/actuation aerosol unknown) inhaler 2 puff inhalation Q6H PRN (unknown) (no (unknown) (unknown) amitriptyline (units ( unknown) date) [AMITRIPTYLINE] unknown) Allergy (Unknown, Verified 11/16/22 11:38) (unknown) (no (unknown) (unknown) as periods of (units ( unknown) date) diarrhea followed by unknown) periods of constipation. These symptoms are (unknown) (no (unknown) (unknown) aspirin [ASPIRIN] (units (unknown) date) Allergy (Unknown, unknown) Verified 11/16/22 11:38) (unknown) (no (unknown) (unknown) benzocaine (units (unk nown) date) [BENZOCAINE] Allergy unknown) (Unknown, Verified 11/16/22 11:38) (unknown) (no (unknown) (unknown) benzonatate 100 mg (units (unknown) date) capsule 100 mg PO unknown) BID-TID PRN cough #60 caps 10/12/22 [Rx (unknown) (no (unknown) (unknown) biotin 1 mg capsule (unit s (unknown) date) 1 mg PO DAILY unknown) 05/26/21 [History Confirmed 11/16/22] (unknown) (no (unknown) (unknown) butamben [From (units (unknown) date) CETACAINE] Allergy unknown) (Unknown, Verified 11/16/22 11:38) (unknown) (no (unknown) (unknown) cholecalciferol (units (unknown) date) (vitamin D3) 250 mcg unknown) (10,000 unit) capsule 250 mcg PO DAILY (unknown) (no (unknown) (unknown) clonazepam 1 mg (units (unknown) date) tablet 1 - 2 mg PO unknown) BID 05/26/21 [History Confirmed 11/16/22] (unknown) (no (unknown) (unknown) complication status: (uni ts (unknown) date) unspecified whether unknown) hemorrhage or perforation present (unknown) (no (unknown) (unknown) continue having (units (unknown) date) intermittent right unknown) upper quadrant abdominal discomfort as well (unknown) (no (unknown) (unknown) dexamethasone (units ( unknown) date) [DEXAMETHASONE] unknown) Allergy (Unknown, Verified 11/16/22 11:38) (unknown) (no (unknown) (unknown) dextroamphetamine-am (uni ts (unknown) date) phetamine 10 mg unknown) tablet (Adderall) 20 mg PO BID #0 tabs (unknown) (no (unknown) (unknown) dicloxacillin (units ( unknown) date) [DICLOXACILLIN] unknown) Allergy (Unknown, Verified 11/16/22 11:38) (unknown) (no (unknown) (unknown) dihydroergocristine (unit s (unknown) date) [DIHYDROERGOCRISTINE] unknown) Allergy (Unknown, Verified 11/16/22 (unknown) (no (unknown) (unknown) dihydroergotamine (units (unknown) date) [DIHYDROERGOTAMINE] unknown) Allergy (Unknown, Verified 11/16/22 11:38) (unknown) (no (unknown) (unknown) diphenhydramine (units (unknown) date) [DIPHENHYDRAMINE] unknown) Allergy (Unknown, Verified 11/16/22 11:38) (unknown) (no (unknown) (unknown) epinephrine 0.3 (units (unknown) date) mg/0.3 mL injection, unknown) auto-injector 0.3 mg IM ONCE 05/26/21 (unknown) (no (unknown) (unknown) fairly consistent (units (unknown) date) with IBS. Will trial unknown) with Zoloft. Can also discuss with (unknown) (no (unknown) (unknown) frovatriptan (units (u nknown) date) [FROVATRIPTAN] unknown) Allergy (Unknown, Verified 11/16/22 11:38) (unknown) (no (unknown) (unknown) gastric ulcers. Will (uni ts (unknown) date) check H pylori as unknown) well as CBC and CMP. Also continues to (unknown) (no (unknown) (unknown) grossly normal, (units (unknown) date) mental status grossly unknown) normal, speech and movement normal, normal (unknown) (no (unknown) (unknown) have chronic pain in (uni ts (unknown) date) significant sciatica unknown) enough to require her to be in (unknown) (no (unknown) (unknown) have occurred. If (units (unknown) date) there are any unknown) questions, please contact the Medical Records (unknown) (no (unknown) (unknown) having intermittent (units (unknown) date) right upper quadrant unknown) abdominal discomfort as well as periods (unknown) (no (unknown) (unknown) hemorrhage or (units ( unknown) date) perforation, K92.2 - unknown) Gastrointestinal hemorrhage, unspecified (unknown) (no (unknown) (unknown) hemorrhage type (units (unknown) date) Qualified Code(s): unknown) K92.2 - Gastrointestinal hemorrhage, (unknown) (no (unknown) (unknown) history of gastric (units (unknown) date) ulcers. Also unknown) continues to have chronic pain in significant (unknown) (no (unknown) (unknown) hydromorphone 2 mg (units (unknown) date) tablet 2 mg PO Q4-6H unknown) PRN 11/16/22 [History Confirmed (unknown) (no (unknown) (unknown) hydroxyzine (units (un known) date) [HYDROXYZINE] Allergy unknown) (Unknown, Verified 11/16/22 11:38) (unknown) (no (unknown) (unknown) ibuprofen (units (unkn own) date) [IBUPROFEN] Allergy unknown) (Unknown, Verified 11/16/22 11:38) (unknown) (no (unknown) (unknown) latex [LATEX] (units ( unknown) date) Allergy (Unknown, unknown) Verified 11/16/22 11:38) (unknown) (no (unknown) (unknown) magnesium glycinate (unit [...] date) tablet (Mobic) 15 mg unknown) PO [facility] 05/26/21 [History Confirmed (unknown) (no (unknown) (unknown) metoclopramide (units (unknown) date) [METOCLOPRAMIDE] unknown) Allergy (Unknown, Verified 11/16/22 11:38) (unknown) (no (unknown) (unknown) normal cognition (units (unknown) date) unknown) (unknown) (no (unknown) (unknown) normal respiratory (units (unknown) date) effort, able to speak unknown) in complete sentences and no (unknown) (no (unknown) (unknown) nortriptyline (units ( unknown) date) [NORTRIPTYLINE] unknown) Allergy (Unknown, Verified 11/16/22 11:38) (unknown) (no (unknown) (unknown) occurred due to the (unit s (unknown) date) inherent limitations unknown) of voice recognition software. Please (unknown) (no (unknown) (unknown) of diarrhea followed (uni ts (unknown) date) by periods of unknown) constipation. Also has noted some blood in (unknown) (no (unknown) (unknown) patient alert, awake (uni ts (unknown) date) unknown) (unknown) (no (unknown) (unknown) perforation, K92.2 - (uni ts (unknown) date) Gastrointestinal unknown) hemorrhage, unspecified, R10.11 - Right (unknown) (no (unknown) (unknown) prasterone (DHEA) (units (unknown) date) [PRASTERONE (DHEA)] unknown) Allergy (Unknown, Verified 11/16/22 11:38) (unknown) (no (unknown) (unknown) prednisone (units (unk nown) date) [PREDNISONE] Allergy unknown) (Unknown, Verified 11/16/22 11:38) (unknown) (no (unknown) (unknown) pregabalin 100 mg (units (unknown) date) capsule (Lyrica) 200 unknown) mg PO BID 05/26/21 [History Confirmed (unknown) (no (unknown) (unknown) prochlorperazine (units (unknown) date) [From COMPAZINE] unknown) Allergy (Unknown, Verified 11/16/22 11:38) (unknown) (no (unknown) (unknown) promethazine [From (units (unknown) date) PHENERGAN] Allergy unknown) (Unknown, Verified 11/16/22 11:38) (unknown) (no (unknown) (unknown) quadrant pain, will (unit s (unknown) date) order HIDA scan as CT unknown) scan did not show obvious evidence (unknown) (no (unknown) (unknown) read the note (units ( unknown) date) carefully and unknown) recognize, using context, where these substitutions (unknown) (no (unknown) (unknown) respiratory distress (uni ts (unknown) date) unknown) (unknown) (no (unknown) (unknown) rizatriptan (units (un known) date) [RIZATRIPTAN] Allergy unknown) (Unknown, Verified 11/16/22 11:38) (unknown) (no (unknown) (unknown) sciatica enough to (units (unknown) date) require her to be in unknown) wheelchair. (unknown) (no (unknown) (unknown) sertraline (Zoloft) (unit s (unknown) date) 50 mg PO DAILY 60 unknown) tabs 0RF (unknown) (no (unknown) (unknown) sertraline 50 mg (units (unknown) date) tablet (Zoloft) 50 mg unknown) PO DAILY #60 tabs 11/16/22 [Rx Confirmed (unknown) (no (unknown) (unknown) she still has some (units (unknown) date) blood that she coughs unknown) up in the morning time. Does continue (unknown) (no (unknown) (unknown) shortness of breath (unit s (unknown) date) or wheezing #8.5 unknown) grams 10/10/22 [Rx Confirmed 11/16/22] (unknown) (no (unknown) (unknown) software. 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 unknown) (unknown) (no (unknown) (unknown) stool. She does have (uni ts (unknown) date) upcoming appointment unknown) with Gastroenterology. Reports (unknown) (no (unknown) (unknown) sumatriptan (units (un known) date) [SUMATRIPTAN] Allergy unknown) (Unknown, Verified 11/16/22 11:38) (unknown) (no (unknown) (unknown) syndrome, (units (unkn own) date) fibromyalgia who is unknown) here for multiple concerns. She does note that (unknown) (no (unknown) (unknown) temazepam 30 mg (units (unknown) date) capsule 30 mg PO unknown) BEDTIME PRN 05/26/21 [History Confirmed (unknown) (no (unknown) (unknown) tetracaine (units (unk nown) date) [TETRACAINE] Allergy unknown) (Unknown, Verified 11/16/22 11:38) (unknown) (no (unknown) (unknown) time. Recommended (units (unknown) date) both pulmonology and unknown) Gastroenterology evaluation. Does (unknown) (no (unknown) (unknown) topiramate [From (units (unknown) date) TOPAMAX] Allergy unknown) (Unknown, Verified 11/16/22 11:38) (unknown) (no (unknown) (unknown) unspecified (units (un known) date) unknown) (unknown) (no (unknown) (unknown) unspecified, K25.9 - (uni ts (unknown) date) Gastric ulcer, unknown) unspecified as acute or chronic, without (unknown) (no (unknown) (unknown) upper quadrant pain (unit s (unknown) date) unknown) (unknown) (no (unknown) (unknown) valproic acid (units ( unknown) date) [VALPROIC ACID] unknown) Allergy (Unknown, Verified 11/16/22 11:38) (unknown) (no (unknown) (unknown) vancomycin (units (unk nown) date) [VANCOMYCIN] Allergy unknown) (Unknown, Verified 11/16/22 11:38) (unknown) (no (unknown) (unknown) verapamil (units (unkn own) date) [VERAPAMIL] Allergy unknown) (Unknown, Verified 11/16/22 11:38) (unknown) (no (unknown) (unknown) wheelchair. Did (units (unknown) date) discuss some unknown) exercises to help. For her continue right upper (unknown) (no (unknown) (unknown) without hemorrhage (units (unknown) date) or perforation unknown) (unknown) (no (unknown) (unknown) zinc sulfate 50 mg (units (unknown) date) zinc (220 mg) tablet unknown) 50 mg PO DAILY 05/26/21 [History Result panel 172 (unknown) (no date) (unknown) (unknown) <9.0 units (unkn own) (unknown) (no date) (unknown) (unknown) <9.0 units (unkn own) (unknown) (no date) (unknown) (unknown) <9.0 units (unkn own) (unknown) (no date) (unknown) (unknown) 0.14 (units unknown) (unknown) (unknown) (no date) (unknown) (unknown) 0.14 (units unknown) (unknown) Result panel 173 (unknown) (no (unknown) (unknown) (no value) (units (unk nown) date) unknown) (unknown) (no (unknown) (unknown) (Clinical (units (unkn own) date) unknown) (unknown) (no (unknown) (unknown) 11/24/22 (units (unkno wn) date) unknown) (unknown) (no (unknown) (unknown) 1. Normal filling (units (unknown) date) of gallbladder. No unknown) evidence for acute cholecystitis. (unknown) (no (unknown) (unknown) [address] [place] [address] (units (unknown) date) unknown) (unknown) (no (unknown) (unknown) 2. Normal (units (unkn own) date) contractile unknown) response of gallbladder to CCK stimulation. (unknown) (no (unknown) (unknown) 35%. (units (unkno wn) date) unknown) (unknown) (no (unknown) (unknown) : [id number] (units (u nknown) date) unknown) (unknown) (no (unknown) (unknown) Accession Number: (units (unknown) date) [id number] unknown) (unknown) (no (unknown) (unknown) Age/Sex: 37 / F (units (unknown) date) Date of Service: unknown) (unknown) (no (unknown) (unknown) MICHEAL Khan (units ( unknown) date) [id number] unknown) (unknown) (no (unknown) (unknown) Approved by: (units (u nknown) date) Elvin Burleson M.D. on unknown) 11/24/2022 at 12:52 (unknown) (no (unknown) (unknown) Biliary scan: (units ( unknown) date) There is normal unknown) tracer uptake and excretion by the liver. There (unknown) (no (unknown) (unknown) CCK infusion. (units ( unknown) date) Gallbladder unknown) ejection fraction was calculated. (unknown) (no (unknown) (unknown) CCK stimulation: (units (unknown) date) There is normal unknown) contractile response of the gallbladder to CCK (unknown) (no (unknown) (unknown) COMPARISON: (units (un known) date) [facility], unknown) US, ABDOMEN COMPLETE, 10/08/2017, 20:28. (unknown) (no (unknown) (unknown) : 1985 (units (unknown) date) Acct:[id number] unknown) (unknown) (no (unknown) (unknown) Dictated by: (units (u nknown) date) Elvin Burleson M.D. on unknown) 11/24/2022 at 12:50 (unknown) (no (unknown) (unknown) FINDINGS: (units (unkn own) date) unknown) (unknown) (no (unknown) (unknown) Following (units (unkn own) date) intravenous unknown) administration of Tc-99m mebrofenin, sequential anterior (unknown) (no (unknown) (unknown) IMPRESSION: (units (un known) date) unknown) (unknown) (no (unknown) (unknown) INDICATIONS: RUQ (units (unknown) date) pain unknown) (unknown) (no (unknown) (unknown) [facility] (units (unknown) date) unknown) (unknown) (no (unknown) (unknown) It has been shown (units (unknown) date) that any patient unknown) abdominal pain after CCK administration is (unknown) (no (unknown) (unknown) Loc: [facility] (units (unkn own) date) unknown) (unknown) (no (unknown) (unknown) [facility] (units (unknown) date) 2012; 37: 63-70. unknown) Journal of Nuclear Medicine 2014; 55: 1-9). (unknown) (no (unknown) (unknown) [facility] (units (unknown) date) Report unknown) (unknown) (no (unknown) (unknown) Ordering (units (unkno wn) date) Provider: unknown) Laurent Lucas MD (unknown) (no (unknown) (unknown) PHARMACEUTICAL: (units (unknown) date) 5.5 mCi Tc-99m unknown) mebrofenin IV; 1.7 mcg CCK IV. (unknown) (no (unknown) (unknown) PROCEDURE: NM (units ( unknown) date) HIDA WITH CCK unknown) (unknown) (no (unknown) (unknown) Patient: (units (unkno wn) date) Bibi Arreola unknown) W MR# (unknown) (no (unknown) (unknown) Procedure: NM (units ( unknown) date) HIDA with cck unknown) (unknown) (no (unknown) (unknown) Signed (units (unkno wn) date) unknown) (unknown) (no (unknown) (unknown) TECHNIQUE: (units (unk nown) date) unknown) (unknown) (no (unknown) (unknown) There is (units (unkno wn) date) unknown) (unknown) (no (unknown) (unknown) abdominal (units (unkn own) date) unknown) (unknown) (no (unknown) (unknown) are above (units (unkn own) date) unknown) (unknown) (no (unknown) (unknown) images were (units (un known) date) obtained. To unknown) evaluate the contractile response of the gallbladder (unknown) (no (unknown) (unknown) in (units (unkno wn) date) unknown) (unknown) (no (unknown) (unknown) infusion. The (units ( unknown) date) calculated unknown) gallbladder ejection fraction is 57%; normal values (unknown) (no (unknown) (unknown) intravenous (units (un known) date) infusion unknown) approximately 60 minutes after the administration of the (unknown) (no (unknown) (unknown) is normal (units (unkn own) date) unknown) (unknown) (no (unknown) (unknown) normal tracer (units ( unknown) date) transit into the unknown) duodenum. (unknown) (no (unknown) (unknown) radiopharmaceutic (units (unknown) date) al. Sequential unknown) imaging was continued for 30 minutes after the (unknown) (no (unknown) (unknown) related to (units (unk nown) date) unknown) (unknown) (no (unknown) (unknown) response to (units (un known) date) Cholecystokinin unknown) (CCK), sincalide (0.02 ?g/kg) was administered by (unknown) (no (unknown) (unknown) slow (units (unkno wn) date) unknown) (unknown) (no (unknown) (unknown) start of (units (unkno wn) date) unknown) (unknown) (no (unknown) (unknown) the rate of CCK (units (unknown) date) injection, rather unknown) than to any underlying gallbladder disease (unknown) (no (unknown) (unknown) visualization of (units (unknown) date) the intrahepatic unknown) ducts, common bile duct, and gallbladder. Result panel 174 (unknown) (no (unknown) (unknown) (no value) (units (unk nown) date) unknown) (unknown) (no (unknown) (unknown) #8.5 grams (units (unk nown) date) unknown) (unknown) (no (unknown) (unknown) 0.3 mg IM ONCE (units (unknown) date) unknown) (unknown) (no (unknown) (unknown) 11/24/22 (units (unkno wn) date) unknown) (unknown) (no (unknown) (unknown) 0RF (units (o wn) date) unknown) (unknown) (no (unknown) (unknown) 1 - 2 mg PO BID (units (unknown) date) unknown) (unknown) (no (unknown) (unknown) 1 mg PO DAILY (units ( unknown) date) unknown) (unknown) (no (unknown) (unknown) 10 mg PO BEDTIME PRN (uni ts (unknown) date) unknown) (unknown) (no (unknown) (unknown) 100 mg PO BID-TID (units (unknown) date) PRN (Reason: cough) unknown) Qty: 60 0RF (unknown) (no (unknown) (unknown) 100 mg PO DAILY (units (unknown) date) unknown) (unknown) (no (unknown) (unknown) 12:14 (units (unkno wn) date) unknown) (unknown) (no (unknown) (unknown) 15 mg PO [facility] (units ( unknown) date) unknown) (unknown) (no (unknown) (unknown) 2 mg PO Q4-6H PRN (units (unknown) date) unknown) (unknown) (no (unknown) (unknown) 2 puff inhalation (units (unknown) date) Q6H PRN (Reason: unknown) shortness of breath or wheezing) Qty: 8.5 (unknown) (no (unknown) (unknown) 20 mg PO BID Qty: 0 (unit s (unknown) date) unknown) (unknown) (no (unknown) (unknown) 200 mg PO BID (units ( unknown) date) unknown) (unknown) (no (unknown) (unknown) 250 mcg PO DAILY (units (unknown) date) unknown) (unknown) (no (unknown) (unknown) 30 mg PO BEDTIME PRN (uni ts (unknown) date) unknown) (unknown) (no (unknown) (unknown) 50 mg PO DAILY Qty: (unit s (unknown) date) 60 0RF unknown) (unknown) (no (unknown) (unknown) 50 mg PO DAILY (units (unknown) date) unknown) (unknown) (no (unknown) (unknown) ABD:bowel sounds (units (unknown) date) normal, soft, unknown) non-tender, no guarding, rebound, rigidity, no (unknown) (no (unknown) (unknown) AT SITE (units (unkno wn) date) unknown) (unknown) (no (unknown) (unknown) Age/Sex: 37 / F (units (unknown) date) unknown) (unknown) (no (unknown) (unknown) Allergies (units (unkn own) date) unknown) (unknown) (no (unknown) (unknown) Allergy/AdvReac Type (uni ts (unknown) date) Severity Reaction unknown) Status Date / Time (unknown) (no (unknown) (unknown) Anesthesia (units (unk nown) date) unknown) (unknown) (no (unknown) (unknown) Ankle pain (units (unk nown) date) unknown) (unknown) (no (unknown) (unknown) Anxiety (units (unkno wn) date) unknown) (unknown) (no (unknown) (unknown) Asthma (units (unkno wn) date) unknown) (unknown) (no (unknown) (unknown) Blood Pressure (units (unknown) date) 138/88 11/24/22 12:14 unknown) (unknown) (no (unknown) (unknown) Blood Pressure (units (unknown) date) 138/88 unknown) (unknown) (no (unknown) (unknown) Cardiac arrhythmia (units (unknown) date) unknown) (unknown) (no (unknown) (unknown) Cervical cyst (units ( unknown) date) unknown) (unknown) (no (unknown) (unknown) Chicken pox (units (un known) date) unknown) (unknown) (no (unknown) (unknown) Chief complaint: (units (unknown) date) Allergic Reaction unknown) (unknown) (no (unknown) (unknown) Course (units (unkno wn) date) unknown) (unknown) (no (unknown) (unknown) : 1985 (units (unknown) date) Acct:[id number] unknown) (unknown) (no (unknown) (unknown) Date of Service: (units (unknown) date) 11/24/22 unknown) (unknown) (no (unknown) (unknown) Departure (units (unkn own) date) unknown) (unknown) (no (unknown) (unknown) Depression (units (unk nown) date) unknown) (unknown) (no (unknown) (unknown) Discharge Plan (units (unknown) date) unknown) (unknown) (no (unknown) (unknown) ER Physician: (units ( unknown) date) Marilyn Leigh D.O. unknown) (unknown) (no (unknown) (unknown) Emergency Report (units (unknown) date) unknown) (unknown) (no (unknown) (unknown) Endometriosis (units ( unknown) date) unknown) (unknown) (no (unknown) (unknown) Exam Narrative: (units (unknown) date) unknown) (unknown) (no (unknown) (unknown) Exam (units (unkno wn) date) unknown) (unknown) (no (unknown) (unknown) Family History (units (unknown) date) (Reviewed 11/24/22 @ unknown) 12:59 by Marilyn Leihg DO) (unknown) (no (unknown) (unknown) Family/Other Mental (unit s (unknown) date) health problem unknown) (unknown) (no (unknown) (unknown) Fibromyalgia (units (u nknown) date) unknown) (unknown) (no (unknown) (unknown) Foot pain (units (unkn own) date) unknown) (unknown) (no (unknown) (unknown) Fractures (units (unkn own) date) unknown) (unknown) (no (unknown) (unknown) GEN: well nourished, (uni ts (unknown) date) well appearing unknown) female, alert and oriented x 3, patient (unknown) (no (unknown) (unknown) GI bleeding (units (un known) date) unknown) (unknown) (no (unknown) (unknown) Gastric ulcer (units ( unknown) date) unknown) (unknown) (no (unknown) (unknown) General (units (unkno wn) date) unknown) (unknown) (no (unknown) (unknown) Grandfather (uni ts (unknown) date) Stroke unknown) (unknown) (no (unknown) (unknown) Grandmother Breast (units (unknown) date) cancer unknown) (unknown) (no (unknown) (unknown) Grandmother (uni ts (unknown) date) Stroke unknown) (unknown) (no (unknown) (unknown) HEART: Regular rate (unit s (unknown) date) and rhythm without unknown) murmur, clicks, rubs. (unknown) (no (unknown) (unknown) HEENT: Atraumatic, (units (unknown) date) pupils are equal unknown) round reactive to light, extraocular (unknown) (no (unknown) (unknown) HPI - Allergic (units (unknown) date) Reaction unknown) (unknown) (no (unknown) (unknown) HPI narrative: (units (unknown) date) unknown) (unknown) (no (unknown) (unknown) Headache (units (unkno wn) date) unknown) (unknown) (no (unknown) (unknown) Hearing loss (units (u nknown) date) unknown) (unknown) (no (unknown) (unknown) Hemorrhoid (units (unk nown) date) unknown) (unknown) (no (unknown) (unknown) History of Present (units (unknown) date) Illness unknown) (unknown) (no (unknown) (unknown) History of [...] hernia repair unknown) (unknown) (no (unknown) (unknown) Home Medications (units (unknown) date) unknown) (unknown) (no (unknown) (unknown) Laurent Lucas MD (uni ts (unknown) date) [Primary Care unknown) Provider] (unknown) (no (unknown) (unknown) Initial Vital Signs (unit s (unknown) date) unknown) (unknown) (no (unknown) (unknown) Initial Vital Signs: (uni ts (unknown) date) unknown) (unknown) (no (unknown) (unknown) Interstitial (units (u nknown) date) cystitis unknown) (unknown) (no (unknown) (unknown) [facility] [address] (uni ts (unknown) date) [facility] [facility] [address] unknown) [place] [address] (unknown) (no (unknown) (unknown) Kidney stones (units ( unknown) date) unknown) (unknown) (no (unknown) (unknown) LUNGS:Lungs clear to (uni ts (unknown) date) auscultation, no unknown) wheezes, rales, crackles, chest moves (unknown) (no (unknown) (unknown) [id number] (units (unk nown) date) unknown) (unknown) (no (unknown) (unknown) MDM - Allergic (units (unknown) date) Reaction unknown) (unknown) (no (unknown) (unknown) MDM Narrative (units ( unknown) date) unknown) (unknown) (no (unknown) (unknown) MSCL: Non-tender, no (uni ts (unknown) date) muscle atrophy, unknown) muscles strength 5/5 upper and lower (unknown) (no (unknown) (unknown) Medical History (units (unknown) date) (Reviewed 11/24/22 @ unknown) 12:59 by Marilyn Leigh DO) (unknown) (no (unknown) (unknown) Medical decision (units (unknown) date) making narrative: unknown) (unknown) (no (unknown) (unknown) Medication (units (unk nown) date) Instructions Recorded unknown) Confirmed (unknown) (no (unknown) (unknown) Medication (units (unk nown) date) Instructions Recorded unknown) (unknown) (no (unknown) (unknown) Mental health (units ( unknown) date) problem unknown) (unknown) (no (unknown) (unknown) Migraines (units (unkn own) date) unknown) (unknown) (no (unknown) (unknown) Mode of arrival: (units (unknown) date) Wheelchair unknown) (unknown) (no (unknown) (unknown) Mother (units (unknown) date) Cancer unknown) (unknown) (no (unknown) (unknown) NEURO:CN 2-12 (units ( unknown) date) intact, sensation unknown) normal (unknown) (no (unknown) (unknown) Narrative (units (unkn own) date) unknown) (unknown) (no (unknown) (unknown) No Action (units (unkn own) date) unknown) (unknown) (no (unknown) (unknown) Ovarian cyst (units (u nknown) date) unknown) (unknown) (no (unknown) (unknown) Oxygen Delivery (units (unknown) date) Method Room Air unknown) 11/24/22 12:14 (unknown) (no (unknown) (unknown) Oxygen Delivery (units (unknown) date) Method Room Air unknown) (unknown) (no (unknown) (unknown) PLASTIC MEDICAL TAPE (uni ts (unknown) date) Allergy Mild BLISTERS unknown) Uncoded 11/16/22 11:38 (unknown) (no (unknown) (unknown) PTSD (post-traumatic (uni ts (unknown) date) stress disorder) unknown) (unknown) (no (unknown) (unknown) Painful menstrual (units (unknown) date) periods unknown) (unknown) (no (unknown) (unknown) Patient History (units (unknown) date) unknown) (unknown) (no (unknown) (unknown) Patient was seen (units (unknown) date) evaluated, she is unknown) hoarse she has nausea she felt like maybe her (unknown) (no (unknown) (unknown) Patient: (units (unkno wn) date) MaxwellBibi unknown) MR#: (unknown) (no (unknown) (unknown) Prescriptions: (units (unknown) date) unknown) (unknown) (no (unknown) (unknown) Previous Rx's (units ( unknown) date) unknown) (unknown) (no (unknown) (unknown) Pulse Oximetry 100 (units (unknown) date) 11/24/22 12:14 unknown) (unknown) (no (unknown) (unknown) Pulse Oximetry 100 (units (unknown) date) unknown) (unknown) (no (unknown) (unknown) Pulse Rate 89 (units ( unknown) date) 11/24/22 12:14 unknown) (unknown) (no (unknown) (unknown) Pulse Rate 89 (units ( unknown) date) unknown) (unknown) (no (unknown) (unknown) ROS Unobtainable: All (uni ts (unknown) date) systems reviewed + unknown) are unremarkable except as noted in HPI (unknown) (no (unknown) (unknown) Referrals: (units (unk nown) date) unknown) (unknown) (no (unknown) (unknown) Related Data (units (u nknown) date) unknown) (unknown) (no (unknown) (unknown) Respiratory Rate 22 (unit s (unknown) date) 11/24/22 12:14 unknown) (unknown) (no (unknown) (unknown) Respiratory Rate 22 (unit s (unknown) date) unknown) (unknown) (no (unknown) (unknown) Review of Systems (units (unknown) date) unknown) (unknown) (no (unknown) (unknown) Ruptured tympanic (units (unknown) date) membrane unknown) (unknown) (no (unknown) (unknown) Rx Instructions: (units (unknown) date) unknown) (unknown) (no (unknown) (unknown) SKIN: No rash, no (units (unknown) date) erythema or other unknown) skin changes. (unknown) (no (unknown) (unknown) Shoulder pain (units ( unknown) date) () unknown) (unknown) (no (unknown) (unknown) Signed By: (units (unk nown) date) unknown) (unknown) (no (unknown) (unknown) Smoking Status: (units (unknown) date) Former smoker unknown) (unknown) (no (unknown) (unknown) Social History (units (unknown) date) (Reviewed 11/24/22 @ unknown) 12:59 by Marilyn Leigh DO) (unknown) (no (unknown) (unknown) Source: patient (units (unknown) date) unknown) (unknown) (no (unknown) (unknown) Stated complaint: (units (unknown) date) nausea head pain unknown) physician ref sent from labs (unknown) (no (unknown) (unknown) Stroke (units (unkno wn) date) unknown) (unknown) (no (unknown) (unknown) Surgical History (units (unknown) date) (Reviewed 11/24/22 @ unknown) 12:59 by Marilyn Leigh DO) (unknown) (no (unknown) (unknown) TIA (transient (units (unknown) date) ischemic attack) unknown) (unknown) (no (unknown) (unknown) Temperature 98.1 F (units (unknown) date) 11/24/22 12:14 unknown) (unknown) (no (unknown) (unknown) Temperature 98.1 F (units (unknown) date) unknown) (unknown) (no (unknown) (unknown) This is 37-year-old (unit s (unknown) date) female with 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 (unknown) (no (unknown) (unknown) Time Seen by (units (u nknown) date) Provider: 11/24/22 unknown) 12:54 (unknown) (no (unknown) (unknown) Tinnitus (units (unkno wn) date) unknown) (unknown) (no (unknown) (unknown) Vertigo (units (unkno wn) date) unknown) (unknown) (no (unknown) (unknown) Vital Signs - 8 hr (units (unknown) date) unknown) (unknown) (no (unknown) (unknown) Vital Signs (units (un known) date) unknown) (unknown) (no (unknown) (unknown) Vital signs: (units (u nknown) date) unknown) (unknown) (no (unknown) (unknown) [DIHYDROERGOCRISTINE (uni ts (unknown) date) ] unknown) (unknown) (no (unknown) (unknown) [DIHYDROERGOTAMINE] (unit s (unknown) date) unknown) (unknown) (no (unknown) (unknown) [DIPHENHYDRAMINE] (units (unknown) date) unknown) (unknown) (no (unknown) (unknown) [From COMPAZINE] (units (unknown) date) unknown) (unknown) (no (unknown) (unknown) [METOCLOPRAMIDE] (units (unknown) date) unknown) (unknown) (no (unknown) (unknown) [PRASTERONE (DHEA)] (unit s (unknown) date) unknown) (unknown) (no (unknown) (unknown) a migraine last (units (unknown) date) night it had improved unknown) but seemed to return when this was (unknown) (no (unknown) (unknown) acetaminophen (units ( unknown) date) [ACETAMINOPHEN] unknown) Allergy Unknown Verified 11/16/22 11:38 (unknown) (no (unknown) (unknown) adhesive [ADHESIVE] (unit s (unknown) date) Allergy Unknown unknown) Verified 11/16/22 11:38 (unknown) (no (unknown) (unknown) aerosol inhaler (units (unknown) date) shortness of breath unknown) or wheezing (unknown) (no (unknown) (unknown) albuterol sulfate 90 (uni ts (unknown) date) mcg/actuation 2 puff unknown) inhalation Q6H PRN 10/10/22 (unknown) (no (unknown) (unknown) albuterol sulfate 90 (uni ts (unknown) date) mcg/actuation HFA unknown) aerosol inhaler (unknown) (no (unknown) (unknown) alcohol intake (units (unknown) date) frequency: 0-2 drinks unknown) per day (unknown) (no (unknown) (unknown) also states she (units (unknown) date) feels really anxious unknown) that she might be having an allergic (unknown) (no (unknown) (unknown) amitriptyline (units ( unknown) date) [AMITRIPTYLINE] unknown) Allergy Unknown Verified 11/16/22 11:38 (unknown) (no (unknown) (unknown) an injection for her (uni ts (unknown) date) HIDA scan when her unknown) symptoms started. Patient also (unknown) (no (unknown) (unknown) and below (units (unkn own) date) unknown) (unknown) (no (unknown) (unknown) and see if this (units (unknown) date) helps resolve her unknown) symptoms. Patient will require close (unknown) (no (unknown) (unknown) appears to be in (units (unknown) date) [id number] unknown) distress. (unknown) (no (unknown) (unknown) as a single dose (units (unknown) date) unknown) (unknown) (no (unknown) (unknown) aspirin [ASPIRIN] (units (unknown) date) Allergy Unknown unknown) Verified 11/16/22 11:38 (unknown) (no (unknown) (unknown) benzocaine (units (unk nown) date) [BENZOCAINE] Allergy unknown) Unknown Verified 11/16/22 11:38 (unknown) (no (unknown) (unknown) benzonatate 100 mg (units (unknown) date) capsule 100 mg PO unknown) BID-TID PRN cough #60 10/12/22 (unknown) (no (unknown) (unknown) benzonatate 100 mg (units (unknown) date) capsule unknown) (unknown) (no (unknown) (unknown) biotin 1 mg capsule (unit s (unknown) date) 1 mg PO DAILY unknown) 05/26/21 11/16/22 (unknown) (no (unknown) (unknown) biotin 1 mg capsule (unit s (unknown) date) unknown) (unknown) (no (unknown) (unknown) butamben [From (units (unknown) date) CETACAINE] Allergy unknown) Unknown Verified 11/16/22 11:38 (unknown) (no (unknown) (unknown) can not have (units (u nknown) date) steroids or Benadryl unknown) for allergic reaction she can only receive (unknown) (no (unknown) (unknown) can not take Benadryl (uni ts (unknown) date) or steroids as they unknown) will induce steroid psychosis and that (unknown) (no (unknown) (unknown) caps (units (unkno wn) date) unknown) (unknown) (no (unknown) (unknown) changes. She states (unit s (unknown) date) she is very nauseated unknown) but not actively vomiting. No (unknown) (no (unknown) (unknown) cholecalciferol (units (unknown) date) (vitamin D3) 250 250 unknown) mcg PO DAILY 05/26/21 11/16/22 (unknown) (no (unknown) (unknown) cholecalciferol (units (unknown) date) (vitamin D3) 250 mcg unknown) (10,000 unit) capsule (unknown) (no (unknown) (unknown) clonazepam 1 mg (units (unknown) date) tablet 1 - 2 mg PO unknown) BID 05/26/21 11/16/22 (unknown) (no (unknown) (unknown) clonazepam 1 mg (units (unknown) date) tablet unknown) (unknown) (no (unknown) (unknown) conjunctival pallor. (uni ts (unknown) date) Throat is clear unknown) without any exudates, erythema, tonsillar (unknown) (no (unknown) (unknown) continuously through (uni ts (unknown) date) a line and is then unknown) monitored once it stopped. Patient (unknown) (no (unknown) (unknown) developed headache (units (unknown) date) which she states is unknown) atypical. She is neurologically intact, (unknown) (no (unknown) (unknown) dexamethasone (units ( unknown) date) [DEXAMETHASONE] unknown) Allergy Unknown Verified 11/16/22 11:38 (unknown) (no (unknown) (unknown) dextroamphetamine-am (uni ts (unknown) date) phetamine 10 20 mg PO unknown) BID #0 tabs 05/26/21 11/16/22 (unknown) (no (unknown) (unknown) dextroamphetamine-am (uni ts (unknown) date) phetamine [Adderall] unknown) 10 mg tablet (unknown) (no (unknown) (unknown) diarrhea. She states (uni ts (unknown) date) no chest pain, she unknown) felt a little tight in her chest but (unknown) (no (unknown) (unknown) dicloxacillin (units ( unknown) date) [DICLOXACILLIN] unknown) Allergy Unknown Verified 11/16/22 11:38 (unknown) (no (unknown) (unknown) dihydroergocristine (unit s (unknown) date) Allergy Unknown unknown) Verified 11/16/22 11:38 (unknown) (no (unknown) (unknown) dihydroergotamine (units (unknown) date) Allergy Unknown unknown) Verified 11/16/22 11:38 (unknown) (no (unknown) (unknown) diphenhydramine (units (unknown) date) Allergy Unknown unknown) Verified 11/16/22 11:38 (unknown) (no (unknown) (unknown) enlargement or (units (unknown) date) uvular deviation, no unknown) oropharyngeal swelling, patient is resting (unknown) (no (unknown) (unknown) epinephrine 0.3 (units (unknown) date) mg/0.3 mL 0.3 mg IM unknown) ONCE 05/26/21 11/16/22 (unknown) (no (unknown) (unknown) epinephrine 0.3 (units (unknown) date) mg/0.3 mL unknown) auto-injector (unknown) (no (unknown) (unknown) epinephrine. (units (u nknown) date) Discussed giving IM unknown) epinephrine and she would like to try Zofran (unknown) (no (unknown) (unknown) extremities, full (units (unknown) date) range of motion, unknown) normal gait (unknown) (no (unknown) (unknown) frovatriptan (units (u nknown) date) [FROVATRIPTAN] unknown) Allergy Unknown Verified 11/16/22 11:38 (unknown) (no (unknown) (unknown) hydromorphone 2 mg (units (unknown) date) tablet 2 mg PO Q4-6H unknown) PRN 11/16/22 11/16/22 (unknown) (no (unknown) (unknown) hydromorphone 2 mg (units (unknown) date) tablet unknown) (unknown) (no (unknown) (unknown) hydroxyzine (units (un known) date) [HYDROXYZINE] Allergy unknown) Unknown Verified 11/16/22 11:38 (unknown) (no (unknown) (unknown) ibuprofen (units (unkn own) date) [IBUPROFEN] Allergy unknown) Unknown Verified 11/16/22 11:38 (unknown) (no (unknown) (unknown) in chair she is (units (unknown) date) speaking in full unknown) sentences, she is some slight hoarseness, no (unknown) (no (unknown) (unknown) injection, (units (unk nown) date) auto-injector unknown) (unknown) (no (unknown) (unknown) latex [LATEX] (units ( unknown) date) Allergy Unknown unknown) Verified 11/16/22 11:38 (unknown) (no (unknown) (unknown) little bit of a (units (unknown) date) headache. She has unknown) multiple medication allergies and received (unknown) (no (unknown) (unknown) lower extremity, (units (unknown) date) insomnia, anxiety and unknown) multiple medication allergies. Patient (unknown) (no (unknown) (unknown) magnesium glycinate (unit s (unknown) date) 100 mg tablet 100 mg unknown) PO DAILY 05/26/21 11/16/22 (unknown) (no (unknown) (unknown) magnesium glycinate (unit s (unknown) date) 100 mg tablet unknown) (unknown) (no (unknown) (unknown) masses noted, no (units (unknown) date) hepatosplenomegaly unknown) (unknown) (no (unknown) (unknown) mcg (10,000 unit) (units (unknown) date) capsule unknown) (unknown) (no (unknown) (unknown) melatonin 10 mg (units (unknown) date) capsule 10 mg PO unknown) BEDTIME PRN 05/26/21 11/16/22 (unknown) (no (unknown) (unknown) melatonin 10 mg (units (unknown) date) capsule unknown) (unknown) (no (unknown) (unknown) meloxicam 7.5 mg (units (unknown) date) tablet (Mobic) 15 mg unknown) PO [facility] 05/26/21 11/16/22 (unknown) (no (unknown) (unknown) meloxicam [Mobic] (units (unknown) date) 7.5 mg tablet unknown) (unknown) (no (unknown) (unknown) metoclopramide (units (unknown) date) Allergy Unknown unknown) Verified 11/16/22 11:38 (unknown) (no (unknown) (unknown) mg tablet (Adderall) (uni ts (unknown) date) unknown) (unknown) (no (unknown) (unknown) monitoring and if (units (unknown) date) any worsening she unknown) needs to receive IM epinephrine. (unknown) (no (unknown) (unknown) movements are (units ( unknown) date) intact, nares are unknown) clear, TMs are clear with no fluid, there is no (unknown) (no (unknown) (unknown) nortriptyline (units ( unknown) date) [NORTRIPTYLINE] unknown) Allergy Unknown Verified 11/16/22 11:38 (unknown) (no (unknown) (unknown) occurring. Patient (units (unknown) date) denies any fevers or unknown) chills. (unknown) (no (unknown) (unknown) prasterone (DHEA) (units (unknown) date) Allergy Unknown unknown) Verified 11/16/22 11:38 (unknown) (no (unknown) (unknown) prednisone (units (unk nown) date) [PREDNISONE] Allergy unknown) Unknown Verified 11/16/22 11:38 (unknown) (no (unknown) (unknown) pregabalin 100 mg (units (unknown) date) capsule (Lyrica) 200 unknown) mg PO BID 05/26/21 11/16/22 (unknown) (no (unknown) (unknown) pregabalin [Lyrica] (unit s (unknown) date) 100 mg capsule unknown) (unknown) (no (unknown) (unknown) prochlorperazine (units (unknown) date) Allergy Unknown unknown) Verified 11/16/22 11:38 (unknown) (no (unknown) (unknown) promethazine [From (units (unknown) date) PHENERGAN] Allergy unknown) Unknown Verified 11/16/22 11:38 (unknown) (no (unknown) (unknown) reaction as well. (units (unknown) date) She states multiple unknown) allergies to medications she states she (unknown) (no (unknown) (unknown) really anxious and (units (unknown) date) that maybe her throat unknown) was tight. She states no rash or skin (unknown) (no (unknown) (unknown) rizatriptan (units (un known) date) [RIZATRIPTAN] Allergy unknown) Unknown Verified 11/16/22 11:38 (unknown) (no (unknown) (unknown) sertraline 50 mg (units (unknown) date) tablet (Zoloft) 50 mg unknown) PO DAILY #60 tabs 11/16/22 (unknown) (no (unknown) (unknown) sertraline [Zoloft] (unit s (unknown) date) 50 mg tablet unknown) (unknown) (no (unknown) (unknown) she has had some (units (unknown) date) nausea but no unknown) vomiting. Discussed with patient she states she (unknown) (no (unknown) (unknown) states she did also (unit s (unknown) date) develop headache, she unknown) states she does have migraine she had (unknown) (no (unknown) (unknown) stridor (units (unkno wn) date) unknown) (unknown) (no (unknown) (unknown) sumatriptan (units (un known) date) [SUMATRIPTAN] Allergy unknown) Unknown Verified 11/16/22 11:38 (unknown) (no (unknown) (unknown) symmetrically (units ( unknown) date) unknown) (unknown) (no (unknown) (unknown) tablet (units (unkno wn) date) unknown) (unknown) (no (unknown) (unknown) temazepam 30 mg (units (unknown) date) capsule 30 mg PO unknown) BEDTIME PRN 05/26/21 11/16/22 (unknown) (no (unknown) (unknown) temazepam 30 mg (units (unknown) date) capsule unknown) (unknown) (no (unknown) (unknown) tetracaine (units (unk nown) date) [TETRACAINE] Allergy unknown) Unknown Verified 11/16/22 11:38 (unknown) (no (unknown) (unknown) that she was going (units (unknown) date) to vomit but did not unknown) actually vomit and states she felt (unknown) (no (unknown) (unknown) throat was clear but (uni ts (unknown) date) she also states she unknown) might just be anxious. She also has a (unknown) (no (unknown) (unknown) topiramate [From (units (unknown) date) TOPAMAX] Allergy unknown) Unknown Verified 11/16/22 11:38 (unknown) (no (unknown) (unknown) valproic acid (units ( unknown) date) [VALPROIC ACID] unknown) Allergy Unknown Verified 11/16/22 11:38 (unknown) (no (unknown) (unknown) vancomycin (units (unk nown) date) [VANCOMYCIN] Allergy unknown) Unknown Verified 11/16/22 11:38 (unknown) (no (unknown) (unknown) verapamil (units (unkn own) date) [VERAPAMIL] Allergy unknown) Unknown Verified 11/16/22 11:38 (unknown) (no (unknown) (unknown) was receiving an (units (unknown) date) injection during her unknown) HIDA scan and developed nausea sensation (unknown) (no (unknown) (unknown) when she is had (units (unknown) date) anaphylactic unknown) reactions she is received epinephrine either IM or (unknown) (no (unknown) (unknown) zinc sulfate 50 mg (units (unknown) date) zinc (220 mg) 50 mg unknown) PO DAILY 05/26/21 11/16/22 (unknown) (no (unknown) (unknown) zinc sulfate 50 mg (units (unknown) date) zinc (220 mg) tablet unknown) Result panel 175 (unknown) (no (unknown) (unknown) (no value) (units (unk nown) date) unknown) (unknown) (no (unknown) (unknown) #8.5 grams (units (unk nown) date) unknown) (unknown) (no (unknown) (unknown) 0.3 mg IM ONCE (units (unknown) date) unknown) (unknown) (no (unknown) (unknown) 11/24/22 (units (unkno wn) date) unknown) (unknown) (no (unknown) (unknown) 0RF (units (unkno wn) date) unknown) (unknown) (no (unknown) (unknown) 1 - 2 mg PO BID (units (unknown) date) unknown) (unknown) (no (unknown) (unknown) 1 mg PO DAILY (units ( unknown) date) unknown) (unknown) (no (unknown) (unknown) 10 mg PO BEDTIME PRN (uni ts (unknown) date) unknown) (unknown) (no (unknown) (unknown) 100 mg PO BID-TID (units (unknown) date) PRN (Reason: cough) unknown) Qty: 60 0RF (unknown) (no (unknown) (unknown) 100 mg PO DAILY (units (unknown) date) unknown) (unknown) (no (unknown) (unknown) 12:14 (units (unkno wn) date) unknown) (unknown) (no (unknown) (unknown) 15 mg PO [facility] (units ( unknown) date) unknown) (unknown) (no (unknown) (unknown) 2 mg PO Q4-6H PRN (units (unknown) date) unknown) (unknown) (no (unknown) (unknown) 2 puff inhalation (units (unknown) date) Q6H PRN (Reason: unknown) shortness of breath or wheezing) Qty: 8.5 (unknown) (no (unknown) (unknown) 20 mg PO BID Qty: 0 (unit s (unknown) date) unknown) (unknown) (no (unknown) (unknown) 200 mg PO BID (units ( unknown) date) unknown) (unknown) (no (unknown) (unknown) 250 mcg PO DAILY (units (unknown) date) unknown) (unknown) (no (unknown) (unknown) 30 mg PO BEDTIME PRN (uni ts (unknown) date) unknown) (unknown) (no (unknown) (unknown) 50 mg PO DAILY Qty: (unit s (unknown) date) 60 0RF unknown) (unknown) (no (unknown) (unknown) 50 mg PO DAILY (units (unknown) date) unknown) (unknown) (no (unknown) (unknown) ABD:bowel sounds (units (unknown) date) normal, soft, unknown) non-tender, no guarding, rebound, rigidity, no (unknown) (no (unknown) (unknown) AT SITE (units (unkno wn) date) unknown) (unknown) (no (unknown) (unknown) Age/Sex: 37 / F (units (unknown) date) unknown) (unknown) (no (unknown) (unknown) Allergies (units (unkn own) date) unknown) (unknown) (no (unknown) (unknown) Allergy/AdvReac Type (uni ts (unknown) date) Severity Reaction unknown) Status Date / Time (unknown) (no (unknown) (unknown) Anesthesia (units (unk nown) date) unknown) (unknown) (no (unknown) (unknown) Ankle pain (units (unk nown) date) unknown) (unknown) (no (unknown) (unknown) Anxiety (units (unkno wn) date) unknown) (unknown) (no (unknown) (unknown) Asthma (units (unkno wn) date) unknown) (unknown) (no (unknown) (unknown) Blood Pressure (units (unknown) date) 138/88 11/24/22 12:14 unknown) (unknown) (no (unknown) (unknown) Blood Pressure (units (unknown) date) 138/88 unknown) (unknown) (no (unknown) (unknown) Cardiac arrhythmia (units (unknown) date) unknown) (unknown) (no (unknown) (unknown) Cervical cyst (units ( unknown) date) unknown) (unknown) (no (unknown) (unknown) Chicken pox (units (un known) date) unknown) (unknown) (no (unknown) (unknown) Chief complaint: (units (unknown) date) Allergic Reaction unknown) (unknown) (no (unknown) (unknown) Course (units (unkno wn) date) unknown) (unknown) (no (unknown) (unknown) : 1985 (units (unknown) date) Acct:[id number] unknown) (unknown) (no (unknown) (unknown) Date of Service: (units (unknown) date) 11/24/22 unknown) (unknown) (no (unknown) (unknown) Departure (units (unkn own) date) unknown) (unknown) (no (unknown) (unknown) Depression (units (unk nown) date) unknown) (unknown) (no (unknown) (unknown) Discharge Plan (units (unknown) date) unknown) (unknown) (no (unknown) (unknown) Discontinued (units (u nknown) date) Medications unknown) (unknown) (no (unknown) (unknown) ER Physician: (units ( unknown) date) Marilyn Leigh D.O. unknown) (unknown) (no (unknown) (unknown) Emergency Report (units (unknown) date) unknown) (unknown) (no (unknown) (unknown) Endometriosis (units ( unknown) date) unknown) (unknown) (no (unknown) (unknown) Exam Narrative: (units (unknown) date) unknown) (unknown) (no (unknown) (unknown) Exam (units (unkno wn) date) unknown) (unknown) (no (unknown) (unknown) Family History (units (unknown) date) (Reviewed 11/24/22 @ unknown) 12:59 by Marilyn Leigh DO) (unknown) (no (unknown) (unknown) Family/Other Mental (unit s (unknown) date) health problem unknown) (unknown) (no (unknown) (unknown) Fibromyalgia (units (u nknown) date) unknown) (unknown) (no (unknown) (unknown) Foot pain (units (unkn own) date) unknown) (unknown) (no (unknown) (unknown) Fractures (units (unkn own) date) unknown) (unknown) (no (unknown) (unknown) GEN: well nourished, (uni ts (unknown) date) well appearing unknown) female, alert and oriented x 3, patient (unknown) (no (unknown) (unknown) GI bleeding (units (un known) date) unknown) (unknown) (no (unknown) (unknown) Gastric ulcer (units ( unknown) date) unknown) (unknown) (no (unknown) (unknown) General (units (unkno wn) date) unknown) (unknown) (no (unknown) (unknown) Grandfather (uni ts (unknown) date) Stroke unknown) (unknown) (no (unknown) (unknown) Grandmother Breast (units (unknown) date) cancer unknown) (unknown) (no (unknown) (unknown) Grandmother (uni ts (unknown) date) Stroke unknown) (unknown) (no (unknown) (unknown) HEART: Regular rate (unit s (unknown) date) and rhythm without unknown) murmur, clicks, rubs. (unknown) (no (unknown) (unknown) HEENT: Atraumatic, (units (unknown) date) pupils are equal unknown) round reactive to light, extraocular (unknown) (no (unknown) (unknown) HPI - Allergic (units (unknown) date) Reaction unknown) (unknown) (no (unknown) (unknown) HPI narrative: (units (unknown) date) unknown) (unknown) (no (unknown) (unknown) Headache (units (unkno wn) date) unknown) (unknown) (no (unknown) (unknown) Hearing loss (units (u nknown) date) unknown) (unknown) (no (unknown) (unknown) Hemorrhoid (units (unk nown) date) unknown) (unknown) (no (unknown) (unknown) History of Present (units (unknown) date) Illness unknown) (unknown) (no (unknown) (unknown) History of [...] hernia repair unknown) (unknown) (no (unknown) (unknown) Home Medications (units (unknown) date) unknown) (unknown) (no (unknown) (unknown) Laurent Lucas MD (uni ts (unknown) date) [Primary Care unknown) Provider] (unknown) (no (unknown) (unknown) Initial Vital Signs (unit s (unknown) date) unknown) (unknown) (no (unknown) (unknown) Initial Vital Signs: (uni ts (unknown) date) unknown) (unknown) (no (unknown) (unknown) Interstitial (units (u nknown) date) cystitis unknown) (unknown) (no (unknown) (unknown) [facility] [address]uni ts (unknown) date) [address] unknown) [place] [address] (unknown) (no (unknown) (unknown) Kidney stones (units ( unknown) date) unknown) (unknown) (no (unknown) (unknown) LUNGS:Lungs clear to (uni ts (unknown) date) auscultation, no unknown) wheezes, rales, crackles, chest moves (unknown) (no (unknown) (unknown) Last Admin: 11/24/22 (uni ts (unknown) date) 13:01 Dose: 4 mg unknown) (unknown) (no (unknown) (unknown) [id number] (units (unk nown) date) unknown) (unknown) (no (unknown) (unknown) MDM - Allergic (units (unknown) date) Reaction unknown) (unknown) (no (unknown) (unknown) MDM Narrative (units ( unknown) date) unknown) (unknown) (no (unknown) (unknown) MSCL: Non-tender, no (uni ts (unknown) date) muscle atrophy, unknown) muscles strength 5/5 upper and lower (unknown) (no (unknown) (unknown) Medical History (units (unknown) date) (Reviewed 11/24/22 @ unknown) 12:59 by Marilyn Leigh DO) (unknown) (no (unknown) (unknown) Medical decision (units (unknown) date) making narrative: unknown) (unknown) (no (unknown) (unknown) Medication (units (unk nown) date) Instructions Recorded unknown) Confirmed (unknown) (no (unknown) (unknown) Medication (units (unk nown) date) Instructions Recorded unknown) (unknown) (no (unknown) (unknown) Mental health (units ( unknown) date) problem unknown) (unknown) (no (unknown) (unknown) Migraines (units (unkn own) date) unknown) (unknown) (no (unknown) (unknown) Mode of arrival: (units (unknown) date) Wheelchair unknown) (unknown) (no (unknown) (unknown) Mother (units (unknown) date) Cancer unknown) (unknown) (no (unknown) (unknown) NEURO:CN 2-12 (units ( unknown) date) intact, sensation unknown) normal (unknown) (no (unknown) (unknown) Narrative (units (unkn own) date) unknown) (unknown) (no (unknown) (unknown) No Action (units (unkn own) date) unknown) (unknown) (no (unknown) (unknown) Ondansetron HCl (units (unknown) date) (Ondansetron 4 Mg/2 unknown) Ml Inj) 4 mg IV NOW ONE (unknown) (no (unknown) (unknown) Ordered: (units (unkno wn) date) unknown) (unknown) (no (unknown) (unknown) Orders (units (unkno wn) date) unknown) (unknown) (no (unknown) (unknown) Ovarian cyst (units (u nknown) date) unknown) (unknown) (no (unknown) (unknown) Oxygen Delivery (units (unknown) date) Method Room Air unknown) 11/24/22 12:14 (unknown) (no (unknown) (unknown) Oxygen Delivery (units (unknown) date) Method Room Air unknown) (unknown) (no (unknown) (unknown) PLASTIC MEDICAL TAPE (uni ts (unknown) date) Allergy Mild BLISTERS unknown) Uncoded 11/16/22 11:38 (unknown) (no (unknown) (unknown) PTSD (post-traumatic (uni ts (unknown) date) stress disorder) unknown) (unknown) (no (unknown) (unknown) Painful menstrual (units (unknown) date) periods unknown) (unknown) (no (unknown) (unknown) Patient History (units (unknown) date) unknown) (unknown) (no (unknown) (unknown) Patient was seen (units (unknown) date) evaluated, she is unknown) hoarse she has nausea she felt like maybe her (unknown) (no (unknown) (unknown) Patient: (units (unkno wn) date) Bibi Arreola W unknown) MR#: (unknown) (no (unknown) (unknown) Prescriptions: (units (unknown) date) unknown) (unknown) (no (unknown) (unknown) Previous Rx's (units ( unknown) date) unknown) (unknown) (no (unknown) (unknown) Pulse Oximetry 100 (units (unknown) date) 11/24/22 12:14 unknown) (unknown) (no (unknown) (unknown) Pulse Oximetry 100 (units (unknown) date) unknown) (unknown) (no (unknown) (unknown) Pulse Rate 89 (units ( unknown) date) 11/24/22 12:14 unknown) (unknown) (no (unknown) (unknown) Pulse Rate 89 (units ( unknown) date) unknown) (unknown) (no (unknown) (unknown) ROS Unobtainable: All (uni ts (unknown) date) systems reviewed + unknown) are unremarkable except as noted in HPI (unknown) (no (unknown) (unknown) Recheck patient (units (unknown) date) states airway is unknown) feeling good but still having migraine (unknown) (no (unknown) (unknown) Referrals: (units (unk nown) date) unknown) (unknown) (no (unknown) (unknown) Related Data (units (u nknown) date) unknown) (unknown) (no (unknown) (unknown) Respiratory Rate 22 (unit s (unknown) date) 11/24/22 12:14 unknown) (unknown) (no (unknown) (unknown) Respiratory Rate 22 (unit s (unknown) date) unknown) (unknown) (no (unknown) (unknown) Review of Systems (units (unknown) date) unknown) (unknown) (no (unknown) (unknown) Ruptured tympanic (units (unknown) date) membrane unknown) (unknown) (no (unknown) (unknown) Rx Instructions: (units (unknown) date) unknown) (unknown) (no (unknown) (unknown) SKIN: No rash, no (units (unknown) date) erythema or other unknown) skin changes. (unknown) (no (unknown) (unknown) Shoulder pain (units ( unknown) date) () unknown) (unknown) (no (unknown) (unknown) Signed By: (units (unk nown) date) unknown) (unknown) (no (unknown) (unknown) Smoking Status: (units (unknown) date) Former smoker unknown) (unknown) (no (unknown) (unknown) Social History (units (unknown) date) (Reviewed 11/24/22 @ unknown) 12:59 by Marilyn Leigh DO) (unknown) (no (unknown) (unknown) Source: patient (units (unknown) date) unknown) (unknown) (no (unknown) (unknown) Stated complaint: (units (unknown) date) nausea head pain unknown) physician ref sent from labs (unknown) (no (unknown) (unknown) Stop: 11/24/22 12:57 (uni ts (unknown) date) unknown) (unknown) (no (unknown) (unknown) Stroke (units (unkno wn) date) unknown) (unknown) (no (unknown) (unknown) Surgical History (units (unknown) date) (Reviewed 11/24/22 @ unknown) 12:59 by Marilyn Leigh DO) (unknown) (no (unknown) (unknown) TIA (transient (units (unknown) date) ischemic attack) unknown) (unknown) (no (unknown) (unknown) Temperature 98.1 F (units (unknown) date) 11/24/22 12:14 unknown) (unknown) (no (unknown) (unknown) Temperature 98.1 F (units (unknown) date) unknown) (unknown) (no (unknown) (unknown) This is 37-year-old (unit s (unknown) date) female with 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 (unknown) (no (unknown) (unknown) Time Seen by (units (u nknown) date) Provider: 11/24/22 unknown) 12:54 (unknown) (no (unknown) (unknown) Tinnitus (units (unkno wn) date) unknown) (unknown) (no (unknown) (unknown) Vertigo (units (unkno wn) date) unknown) (unknown) (no (unknown) (unknown) Vital Signs - 8 hr (units (unknown) date) unknown) (unknown) (no (unknown) (unknown) Vital Signs (units (un known) date) unknown) (unknown) (no (unknown) (unknown) Vital signs: (units (u nknown) date) unknown) (unknown) (no (unknown) (unknown) [DIHYDROERGOCRISTINE (uni ts (unknown) date) ] unknown) (unknown) (no (unknown) (unknown) [DIHYDROERGOTAMINE] (unit s (unknown) date) unknown) (unknown) (no (unknown) (unknown) [DIPHENHYDRAMINE] (units (unknown) date) unknown) (unknown) (no (unknown) (unknown) [From COMPAZINE] (units (unknown) date) unknown) (unknown) (no (unknown) (unknown) [METOCLOPRAMIDE] (units (unknown) date) unknown) (unknown) (no (unknown) (unknown) [PRASTERONE (DHEA)] (unit s (unknown) date) unknown) (unknown) (no (unknown) (unknown) a migraine last (units (unknown) date) night it had improved unknown) but seemed to return when this was (unknown) (no (unknown) (unknown) acetaminophen (units ( unknown) date) [ACETAMINOPHEN] unknown) Allergy Unknown Verified 11/24/22 13:15 (unknown) (no (unknown) (unknown) adhesive [ADHESIVE] (unit s (unknown) date) Allergy Unknown unknown) Verified 11/24/22 13:15 (unknown) (no (unknown) (unknown) aerosol inhaler (units (unknown) date) shortness of breath unknown) or wheezing (unknown) (no (unknown) (unknown) albuterol sulfate 90 (uni ts (unknown) date) mcg/actuation 2 puff unknown) inhalation Q6H PRN 10/10/22 (unknown) (no (unknown) (unknown) albuterol sulfate 90 (uni ts (unknown) date) mcg/actuation HFA unknown) aerosol inhaler (unknown) (no (unknown) (unknown) alcohol intake (units (unknown) date) frequency: 0-2 drinks unknown) per day (unknown) (no (unknown) (unknown) also states she (units (unknown) date) feels really anxious unknown) that she might be having an allergic (unknown) (no (unknown) (unknown) amitriptyline (units ( unknown) date) [AMITRIPTYLINE] unknown) Allergy Unknown Verified 11/24/22 13:15 (unknown) (no (unknown) (unknown) an injection for her (uni ts (unknown) date) HIDA scan when her unknown) symptoms started. Patient also (unknown) (no (unknown) (unknown) and below (units (unkn own) date) unknown) (unknown) (no (unknown) (unknown) and see if this (units (unknown) date) helps resolve her unknown) symptoms. Patient will require close (unknown) (no (unknown) (unknown) appears to be in (units (unknown) date) [id number] unknown) distress. (unknown) (no (unknown) (unknown) as a single dose (units (unknown) date) unknown) (unknown) (no (unknown) (unknown) aspirin [ASPIRIN] (units (unknown) date) Allergy Unknown unknown) Verified 11/24/22 13:15 (unknown) (no (unknown) (unknown) benzocaine (units (unk nown) date) [BENZOCAINE] Allergy unknown) Unknown Verified 11/24/22 13:15 (unknown) (no (unknown) (unknown) benzonatate 100 mg (units (unknown) date) capsule 100 mg PO unknown) BID-TID PRN cough #60 10/12/22 (unknown) (no (unknown) (unknown) benzonatate 100 mg (units (unknown) date) capsule unknown) (unknown) (no (unknown) (unknown) biotin 1 mg capsule (unit s (unknown) date) 1 mg PO DAILY unknown) 05/26/21 11/16/22 (unknown) (no (unknown) (unknown) biotin 1 mg capsule (unit s (unknown) date) unknown) (unknown) (no (unknown) (unknown) butamben [From (units (unknown) date) CETACAINE] Allergy unknown) Unknown Verified 11/24/22 13:15 (unknown) (no (unknown) (unknown) can not have (units (u nknown) date) steroids or Benadryl unknown) for allergic reaction she can only receive (unknown) (no (unknown) (unknown) can not take Benadryl (uni ts (unknown) date) or steroids as they unknown) will induce steroid psychosis and that (unknown) (no (unknown) (unknown) caps (units (unkno wn) date) unknown) (unknown) (no (unknown) (unknown) changes. She states (unit s (unknown) date) she is very nauseated unknown) but not actively vomiting. No (unknown) (no (unknown) (unknown) cholecalciferol (units (unknown) date) (vitamin D3) 250 250 unknown) mcg PO DAILY 05/26/21 11/16/22 (unknown) (no (unknown) (unknown) cholecalciferol (units (unknown) date) (vitamin D3) 250 mcg unknown) (10,000 unit) capsule (unknown) (no (unknown) (unknown) clonazepam 1 mg (units (unknown) date) tablet 1 - 2 mg PO unknown) BID 05/26/21 11/16/22 (unknown) (no (unknown) (unknown) clonazepam 1 mg (units (unknown) date) tablet unknown) (unknown) (no (unknown) (unknown) conjunctival pallor. (uni ts (unknown) date) Throat is clear unknown) without any exudates, erythema, tonsillar (unknown) (no (unknown) (unknown) continuously through (uni ts (unknown) date) a line and is then unknown) monitored once it stopped. Patient (unknown) (no (unknown) (unknown) developed headache (units (unknown) date) which she states is unknown) atypical. She is neurologically intact, (unknown) (no (unknown) (unknown) dexamethasone (units ( unknown) date) [DEXAMETHASONE] unknown) Allergy Unknown Verified 11/24/22 13:15 (unknown) (no (unknown) (unknown) dextroamphetamine-am (uni ts (unknown) date) phetamine 10 20 mg PO unknown) BID #0 tabs 05/26/21 11/16/22 (unknown) (no (unknown) (unknown) dextroamphetamine-am (uni ts (unknown) date) phetamine [Adderall] unknown) 10 mg tablet (unknown) (no (unknown) (unknown) diarrhea. She states (uni ts (unknown) date) no chest pain, she unknown) felt a little tight in her chest but (unknown) (no (unknown) (unknown) dicloxacillin (units ( unknown) date) [DICLOXACILLIN] unknown) Allergy Unknown Verified 11/24/22 13:15 (unknown) (no (unknown) (unknown) dihydroergocristine (unit s (unknown) date) Allergy Unknown unknown) Verified 11/24/22 13:15 (unknown) (no (unknown) (unknown) dihydroergotamine (units (unknown) date) Allergy Unknown unknown) Verified 11/24/22 13:15 (unknown) (no (unknown) (unknown) diphenhydramine (units (unknown) date) Allergy Unknown unknown) Verified 11/24/22 13:15 (unknown) (no (unknown) (unknown) enlargement or (units (unknown) date) uvular deviation, no unknown) oropharyngeal swelling, patient is resting (unknown) (no (unknown) (unknown) epinephrine 0.3 (units (unknown) date) mg/0.3 mL 0.3 mg IM unknown) ONCE 05/26/21 11/16/22 (unknown) (no (unknown) (unknown) epinephrine 0.3 (units (unknown) date) mg/0.3 mL unknown) auto-injector (unknown) (no (unknown) (unknown) epinephrine. (units (u nknown) date) Discussed giving IM unknown) epinephrine and she would like to try Zofran (unknown) (no (unknown) (unknown) extremities, full (units (unknown) date) range of motion, unknown) normal gait (unknown) (no (unknown) (unknown) from. She has (units ( unknown) date) persistent headache unknown) symptoms and discussed giving her typical (unknown) (no (unknown) (unknown) frovatriptan (units (u nknown) date) [FROVATRIPTAN] unknown) Allergy Unknown Verified 11/24/22 13:15 (unknown) (no (unknown) (unknown) her typical migraine (uni ts (unknown) date) cocktail which is unknown) where her 8 mg of Zofran and fluids came (unknown) (no (unknown) (unknown) hydromorphone 2 mg (units (unknown) date) tablet 2 mg PO Q4-6H unknown) PRN 11/16/22 11/16/22 (unknown) (no (unknown) (unknown) hydromorphone 2 mg (units (unknown) date) tablet unknown) (unknown) (no (unknown) (unknown) hydroxyzine (units (un known) date) [HYDROXYZINE] Allergy unknown) Unknown Verified 11/24/22 13:15 (unknown) (no (unknown) (unknown) ibuprofen (units (unkn own) date) [IBUPROFEN] Allergy unknown) Unknown Verified 11/24/22 13:15 (unknown) (no (unknown) (unknown) in chair she is (units (unknown) date) speaking in full unknown) sentences, she is some slight hoarseness, no (unknown) (no (unknown) (unknown) injection, (units (unk nown) date) auto-injector unknown) (unknown) (no (unknown) (unknown) latex [LATEX] (units ( unknown) date) Allergy Unknown unknown) Verified 11/24/22 13:15 (unknown) (no (unknown) (unknown) little bit of a (units (unknown) date) headache. She has unknown) multiple medication allergies and received (unknown) (no (unknown) (unknown) lower extremity, (units (unknown) date) insomnia, anxiety and unknown) multiple medication allergies. Patient (unknown) (no (unknown) (unknown) magnesium glycinate (unit s (unknown) date) 100 mg tablet 100 mg unknown) PO DAILY 05/26/21 11/16/22 (unknown) (no (unknown) (unknown) magnesium glycinate (unit s (unknown) date) 100 mg tablet unknown) (unknown) (no (unknown) (unknown) masses noted, no (units (unknown) date) hepatosplenomegaly unknown) (unknown) (no (unknown) (unknown) mcg (10,000 unit) (units (unknown) date) capsule unknown) (unknown) (no (unknown) (unknown) medication. (units (un known) date) unknown) (unknown) (no (unknown) (unknown) melatonin 10 mg (units (unknown) date) capsule 10 mg PO unknown) BEDTIME PRN 05/26/21 11/16/22 (unknown) (no (unknown) (unknown) melatonin 10 mg (units (unknown) date) capsule unknown) (unknown) (no (unknown) (unknown) meloxicam 7.5 mg (units (unknown) date) tablet (Mobic) 15 mg unknown) PO [facility] 05/26/21 11/16/22 (unknown) (no (unknown) (unknown) meloxicam [Mobic] (units (unknown) date) 7.5 mg tablet unknown) (unknown) (no (unknown) (unknown) metoclopramide (units (unknown) date) Allergy Unknown unknown) Verified 11/24/22 13:15 (unknown) (no (unknown) (unknown) mg tablet (Adderall) (uni ts (unknown) date) unknown) (unknown) (no (unknown) (unknown) monitoring and if (units (unknown) date) any worsening she unknown) needs to receive IM epinephrine. (unknown) (no (unknown) (unknown) movements are (units ( unknown) date) intact, nares are unknown) clear, TMs are clear with no fluid, there is no (unknown) (no (unknown) (unknown) nortriptyline (units ( unknown) date) [NORTRIPTYLINE] unknown) Allergy Unknown Verified 11/24/22 13:15 (unknown) (no (unknown) (unknown) occurring. Patient (units (unknown) date) denies any fevers or unknown) chills. (unknown) (no (unknown) (unknown) prasterone (DHEA) (units (unknown) date) Allergy Unknown unknown) Verified 11/24/22 13:15 (unknown) (no (unknown) (unknown) prednisone (units (unk nown) date) [PREDNISONE] Allergy unknown) Unknown Verified 11/24/22 13:15 (unknown) (no (unknown) (unknown) pregabalin 100 mg (units (unknown) date) capsule (Lyrica) 200 unknown) mg PO BID 05/26/21 11/16/22 (unknown) (no (unknown) (unknown) pregabalin [Lyrica] (unit s (unknown) date) 100 mg capsule unknown) (unknown) (no (unknown) (unknown) prochlorperazine (units (unknown) date) Allergy Unknown unknown) Verified 11/24/22 13:15 (unknown) (no (unknown) (unknown) promethazine [From (units (unknown) date) PHENERGAN] Allergy unknown) Unknown Verified 11/24/22 13:15 (unknown) (no (unknown) (unknown) reaction as well. (units (unknown) date) She states multiple unknown) allergies to medications she states she (unknown) (no (unknown) (unknown) really anxious and (units (unknown) date) that maybe her throat unknown) was tight. She states no rash or skin (unknown) (no (unknown) (unknown) rizatriptan (units (un known) date) [RIZATRIPTAN] Allergy unknown) Unknown Verified 11/24/22 13:15 (unknown) (no (unknown) (unknown) sertraline 50 mg (units (unknown) date) tablet (Zoloft) 50 mg unknown) PO DAILY #60 tabs 11/16/22 (unknown) (no (unknown) (unknown) sertraline [Zoloft] (unit s (unknown) date) 50 mg tablet unknown) (unknown) (no (unknown) (unknown) she has had some (units (unknown) date) nausea but no unknown) vomiting. Discussed with patient she states she (unknown) (no (unknown) (unknown) states she did also (unit s (unknown) date) develop headache, she unknown) states she does have migraine she had (unknown) (no (unknown) (unknown) stridor (units (unkno wn) date) unknown) (unknown) (no (unknown) (unknown) sumatriptan (units (un known) date) [SUMATRIPTAN] Allergy unknown) Unknown Verified 11/24/22 13:15 (unknown) (no (unknown) (unknown) symmetrically (units ( unknown) date) unknown) (unknown) (no (unknown) (unknown) symptoms. Patient (units (unknown) date) has a letter from her unknown) provider at [facility] with (unknown) (no (unknown) (unknown) tablet (units (unkno wn) date) unknown) (unknown) (no (unknown) (unknown) temazepam 30 mg (units (unknown) date) capsule 30 mg PO unknown) BEDTIME PRN 05/26/21 11/16/22 (unknown) (no (unknown) (unknown) temazepam 30 mg (units (unknown) date) capsule unknown) (unknown) (no (unknown) (unknown) tetracaine (units (unk nown) date) [TETRACAINE] Allergy unknown) Unknown Verified 11/24/22 13:15 (unknown) (no (unknown) (unknown) that she was going (units (unknown) date) to vomit but did not unknown) actually vomit and states she felt (unknown) (no (unknown) (unknown) throat was clear but (uni ts (unknown) date) she also states she unknown) might just be anxious. She also has a (unknown) (no (unknown) (unknown) topiramate [From (units (unknown) date) TOPAMAX] Allergy unknown) Unknown Verified 11/24/22 13:15 (unknown) (no (unknown) (unknown) valproic acid (units ( unknown) date) [VALPROIC ACID] unknown) Allergy Unknown Verified 11/24/22 13:15 (unknown) (no (unknown) (unknown) vancomycin (units (unk nown) date) [VANCOMYCIN] Allergy unknown) Unknown Verified 11/24/22 13:15 (unknown) (no (unknown) (unknown) verapamil (units (unkn own) date) [VERAPAMIL] Allergy unknown) Unknown Verified 11/24/22 13:15 (unknown) (no (unknown) (unknown) was receiving an (units (unknown) date) injection during her unknown) HIDA scan and developed nausea sensation (unknown) (no (unknown) (unknown) when she is had (units (unknown) date) anaphylactic unknown) reactions she is received epinephrine either IM or (unknown) (no (unknown) (unknown) zinc sulfate 50 mg (units (unknown) date) zinc (220 mg) 50 mg unknown) PO DAILY 05/26/21 11/16/22 (unknown) (no (unknown) (unknown) zinc sulfate 50 mg (units (unknown) date) zinc (220 mg) tablet unknown) Result panel 176 (unknown) (no (unknown) (unknown) (no value) (units (unk nown) date) unknown) (unknown) (no (unknown) (unknown) #8.5 grams (units (unk nown) date) unknown) (unknown) (no (unknown) (unknown) 0.3 mg IM ONCE (units (unknown) date) unknown) (unknown) (no (unknown) (unknown) 11/24/22 (units (unkno wn) date) unknown) (unknown) (no (unknown) (unknown) 0RF (units (unkno wn) date) unknown) (unknown) (no (unknown) (unknown) 1 - 2 mg PO BID (units (unknown) date) unknown) (unknown) (no (unknown) (unknown) 1 mg PO DAILY (units ( unknown) date) unknown) (unknown) (no (unknown) (unknown) 10 mg PO BEDTIME PRN (uni ts (unknown) date) unknown) (unknown) (no (unknown) (unknown) 100 mg PO BID-TID (units (unknown) date) PRN (Reason: cough) unknown) Qty: 60 0RF (unknown) (no (unknown) (unknown) 100 mg PO DAILY (units (unknown) date) unknown) (unknown) (no (unknown) (unknown) 12:14 (units (unkno wn) date) unknown) (unknown) (no (unknown) (unknown) 15 mg PO [facility] (units ( unknown) date) unknown) (unknown) (no (unknown) (unknown) 2 mg PO Q4-6H PRN (units (unknown) date) unknown) (unknown) (no (unknown) (unknown) 2 puff inhalation (units (unknown) date) Q6H PRN (Reason: unknown) shortness of breath or wheezing) Qty: 8.5 (unknown) (no (unknown) (unknown) 20 mg PO BID Qty: 0 (unit s (unknown) date) unknown) (unknown) (no (unknown) (unknown) 200 mg PO BID (units ( unknown) date) unknown) (unknown) (no (unknown) (unknown) 250 mcg PO DAILY (units (unknown) date) unknown) (unknown) (no (unknown) (unknown) 30 mg PO BEDTIME PRN (uni ts (unknown) date) unknown) (unknown) (no (unknown) (unknown) 50 mg PO DAILY Qty: (unit s (unknown) date) 60 0RF unknown) (unknown) (no (unknown) (unknown) 50 mg PO DAILY (units (unknown) date) unknown) (unknown) (no (unknown) (unknown) 500 mL of fluid, O2 (unit s (unknown) date) at 12 liters/minute unknown) for at least 15 minutes, Zofran 8 mg, (unknown) (no (unknown) (unknown) ABD:bowel sounds (units (unknown) date) normal, soft, unknown) non-tender, no guarding, rebound, rigidity, no (unknown) (no (unknown) (unknown) AT SITE (units (unkno wn) date) unknown) (unknown) (no (unknown) (unknown) Age/Sex: 37 / F (units (unknown) date) unknown) (unknown) (no (unknown) (unknown) Allergies (units (unkn own) date) unknown) (unknown) (no (unknown) (unknown) Allergy/AdvReac Type (uni ts (unknown) date) Severity Reaction unknown) Status Date / Time (unknown) (no (unknown) (unknown) Anesthesia (units (unk nown) date) unknown) (unknown) (no (unknown) (unknown) Ankle pain (units (unk nown) date) unknown) (unknown) (no (unknown) (unknown) Anxiety (units (unkno wn) date) unknown) (unknown) (no (unknown) (unknown) Asthma (units (unkno wn) date) unknown) (unknown) (no (unknown) (unknown) Blood Pressure (units (unknown) date) 138/88 11/24/22 12:14 unknown) (unknown) (no (unknown) (unknown) Blood Pressure (units (unknown) date) 138 unknown) (unknown) (no (unknown) (unknown) Cardiac arrhythmia (units (unknown) date) unknown) (unknown) (no (unknown) (unknown) Cervical cyst (units ( unknown) date) unknown) (unknown) (no (unknown) (unknown) Chicken pox (units (un known) date) unknown) (unknown) (no (unknown) (unknown) Chief complaint: (units (unknown) date) Allergic Reaction unknown) (unknown) (no (unknown) (unknown) Course (units (unkno wn) date) unknown) (unknown) (no (unknown) (unknown) : 1985 (units (unknown) date) Acct:[id number] unknown) (unknown) (no (unknown) (unknown) Date of Service: (units (unknown) date) 11/24/22 unknown) (unknown) (no (unknown) (unknown) Departure (units (unkn own) date) unknown) (unknown) (no (unknown) (unknown) Depression (units (unk nown) date) unknown) (unknown) (no (unknown) (unknown) Discharge Plan (units (unknown) date) unknown) (unknown) (no (unknown) (unknown) Discontinued (units (u nknown) date) Medications unknown) (unknown) (no (unknown) (unknown) ER Physician: (units ( unknown) date) Marilyn Leihg D.O. unknown) (unknown) (no (unknown) (unknown) Emergency Report (units (unknown) date) unknown) (unknown) (no (unknown) (unknown) Endometriosis (units ( unknown) date) unknown) (unknown) (no (unknown) (unknown) Exam Narrative: (units (unknown) date) unknown) (unknown) (no (unknown) (unknown) Exam (units (unkno wn) date) unknown) (unknown) (no (unknown) (unknown) Family History (units (unknown) date) (Reviewed 11/24/22 @ unknown) 12:59 by Marilyn Leigh DO) (unknown) (no (unknown) (unknown) Family/Other Mental (unit s (unknown) date) health problem unknown) (unknown) (no (unknown) (unknown) Fibromyalgia (units (u nknown) date) unknown) (unknown) (no (unknown) (unknown) Foot pain (units (unkn own) date) unknown) (unknown) (no (unknown) (unknown) Fractures (units (unkn own) date) unknown) (unknown) (no (unknown) (unknown) GEN: well nourished, (uni ts (unknown) date) well appearing unknown) female, alert and oriented x 3, patient (unknown) (no (unknown) (unknown) GI bleeding (units (un known) date) unknown) (unknown) (no (unknown) (unknown) Gastric ulcer (units ( unknown) date) unknown) (unknown) (no (unknown) (unknown) General (units (unkno wn) date) unknown) (unknown) (no (unknown) (unknown) Grandfather (uni ts (unknown) date) Stroke unknown) (unknown) (no (unknown) (unknown) Grandmother Breast (units (unknown) date) cancer unknown) (unknown) (no (unknown) (unknown) Grandmother (uni ts (unknown) date) Stroke unknown) (unknown) (no (unknown) (unknown) HEART: Regular rate (unit s (unknown) date) and rhythm without unknown) murmur, clicks, rubs. (unknown) (no (unknown) (unknown) HEENT: Atraumatic, (units (unknown) date) pupils are equal unknown) round reactive to light, extraocular (unknown) (no (unknown) (unknown) HPI - Allergic (units (unknown) date) Reaction unknown) (unknown) (no (unknown) (unknown) HPI narrative: (units (unknown) date) unknown) (unknown) (no (unknown) (unknown) Headache (units (unkno wn) date) unknown) (unknown) (no (unknown) (unknown) Hearing loss (units (u nknown) date) unknown) (unknown) (no (unknown) (unknown) Hemorrhoid (units (unk nown) date) unknown) (unknown) (no (unknown) (unknown) History of Present (units (unknown) date) Illness unknown) (unknown) (no (unknown) (unknown) History of [...] hernia repair unknown) (unknown) (no (unknown) (unknown) Home Medications (units (unknown) date) unknown) (unknown) (no (unknown) (unknown) Laurent Lucas MD (uni ts (unknown) date) [Primary Care unknown) Provider] (unknown) (no (unknown) (unknown) Initial Vital Signs (unit s (unknown) date) unknown) (unknown) (no (unknown) (unknown) Initial Vital Signs: (uni ts (unknown) date) unknown) (unknown) (no (unknown) (unknown) Interstitial (units (u nknown) date) cystitis unknown) (unknown) (no (unknown) (unknown) [facility] [address] (uni ts (unknown) date) [address] unknown) [place] [address] (unknown) (no (unknown) (unknown) Kidney stones (units ( unknown) date) unknown) (unknown) (no (unknown) (unknown) LUNGS:Lungs clear to (uni ts (unknown) date) auscultation, no unknown) wheezes, rales, crackles, chest moves (unknown) (no (unknown) (unknown) Last Admin: 11/24/22 (uni ts (unknown) date) 13:01 Dose: 4 mg unknown) (unknown) (no (unknown) (unknown) Last Admin: 11/24/22 (uni ts (unknown) date) 13:33 Dose: 1,000 unknown) mls/hr (unknown) (no (unknown) (unknown) Last Admin: 11/24/22 (uni ts (unknown) date) 13:33 Dose: 4 mg unknown) (unknown) (no (unknown) (unknown) [id number] (units (unk nown) date) unknown) (unknown) (no (unknown) (unknown) MDM - Allergic (units (unknown) date) Reaction unknown) (unknown) (no (unknown) (unknown) MDM Narrative (units ( unknown) date) unknown) (unknown) (no (unknown) (unknown) MSCL: Non-tender, no (uni ts (unknown) date) muscle atrophy, unknown) muscles strength 5/5 upper and lower (unknown) (no (unknown) (unknown) Medical History (units (unknown) date) (Reviewed 11/24/22 @ unknown) 12:59 by Marilyn Leigh DO) (unknown) (no (unknown) (unknown) Medical decision (units (unknown) date) making narrative: unknown) (unknown) (no (unknown) (unknown) Medication (units (unk nown) date) Instructions Recorded unknown) Confirmed (unknown) (no (unknown) (unknown) Medication (units (unk nown) date) Instructions Recorded unknown) (unknown) (no (unknown) (unknown) Mental health (units ( unknown) date) problem unknown) (unknown) (no (unknown) (unknown) Migraines (units (unkn own) date) unknown) (unknown) (no (unknown) (unknown) Mode of arrival: (units (unknown) date) Wheelchair unknown) (unknown) (no (unknown) (unknown) Mother (units (unknown) date) Cancer unknown) (unknown) (no (unknown) (unknown) NEURO:CN 2-12 (units ( unknown) date) intact, sensation unknown) normal (unknown) (no (unknown) (unknown) Narrative (units (unkn own) date) unknown) (unknown) (no (unknown) (unknown) No Action (units (unkn own) date) unknown) (unknown) (no (unknown) (unknown) Ondansetron HCl (units (unknown) date) (Ondansetron 4 Mg/2 unknown) Ml Inj) 4 mg IV NOW ONE (unknown) (no (unknown) (unknown) Ordered: (units (unkno wn) date) unknown) (unknown) (no (unknown) (unknown) Orders (units (unkno wn) date) unknown) (unknown) (no (unknown) (unknown) Ovarian cyst (units (u nknown) date) unknown) (unknown) (no (unknown) (unknown) Oxygen Delivery (units (unknown) date) Method Room Air unknown) 11/24/22 12:14 (unknown) (no (unknown) (unknown) Oxygen Delivery (units (unknown) date) Method Room Air unknown) (unknown) (no (unknown) (unknown) PLASTIC MEDICAL TAPE (uni ts (unknown) date) Allergy Mild BLISTERS unknown) Uncoded 11/16/22 11:38 (unknown) (no (unknown) (unknown) PTSD (post-traumatic (uni ts (unknown) date) stress disorder) unknown) (unknown) (no (unknown) (unknown) Painful menstrual (units (unknown) date) periods unknown) (unknown) (no (unknown) (unknown) Patient History (units (unknown) date) unknown) (unknown) (no (unknown) (unknown) Patient was seen (units (unknown) date) evaluated, she is unknown) hoarse she has nausea she felt like maybe her (unknown) (no (unknown) (unknown) Patient: (units (unkno wn) date) Bibi Arreola unknown) MR#: (unknown) (no (unknown) (unknown) Prescriptions: (units (unknown) date) unknown) (unknown) (no (unknown) (unknown) Previous Rx's (units ( unknown) date) unknown) (unknown) (no (unknown) (unknown) Pulse Oximetry 100 (units (unknown) date) 11/24/22 12:14 unknown) (unknown) (no (unknown) (unknown) Pulse Oximetry 100 (units (unknown) date) unknown) (unknown) (no (unknown) (unknown) Pulse Rate 89 (units ( unknown) date) 11/24/22 12:14 unknown) (unknown) (no (unknown) (unknown) Pulse Rate 89 (units ( unknown) date) unknown) (unknown) (no (unknown) (unknown) ROS Unobtainable: All (uni ts (unknown) date) systems reviewed + unknown) are unremarkable except as noted in HPI (unknown) (no (unknown) (unknown) Recheck patient (units (unknown) date) states airway is unknown) feeling good but still having migraine (unknown) (no (unknown) (unknown) Referrals: (units (unk nown) date) unknown) (unknown) (no (unknown) (unknown) Related Data (units (u nknown) date) unknown) (unknown) (no (unknown) (unknown) Respiratory Rate 22 (unit s (unknown) date) 11/24/22 12:14 unknown) (unknown) (no (unknown) (unknown) Respiratory Rate 22 (unit s (unknown) date) unknown) (unknown) (no (unknown) (unknown) Review of Systems (units (unknown) date) unknown) (unknown) (no (unknown) (unknown) Ruptured tympanic (units (unknown) date) membrane unknown) (unknown) (no (unknown) (unknown) Rx Instructions: (units (unknown) date) unknown) (unknown) (no (unknown) (unknown) SKIN: No rash, no (units (unknown) date) erythema or other unknown) skin changes. (unknown) (no (unknown) (unknown) Shoulder pain (units ( unknown) date) () unknown) (unknown) (no (unknown) (unknown) Signed By: (units (unk nown) date) unknown) (unknown) (no (unknown) (unknown) Smoking Status: (units (unknown) date) Former smoker unknown) (unknown) (no (unknown) (unknown) Social History (units (unknown) date) (Reviewed 11/24/22 @ unknown) 12:59 by Marilyn Leigh DO) (unknown) (no (unknown) (unknown) Sodium Chloride (units (unknown) date) (Normal Saline 0.9%) unknown) 500 mls @ 1,000 mls/hr IV BOLUS ONE (unknown) (no (unknown) (unknown) Source: patient (units (unknown) date) unknown) (unknown) (no (unknown) (unknown) Stated complaint: (units (unknown) date) nausea head pain unknown) physician ref sent from labs (unknown) (no (unknown) (unknown) Stop: 11/24/22 12:57 (uni ts (unknown) date) unknown) (unknown) (no (unknown) (unknown) Stop: 11/24/22 13:27 (uni ts (unknown) date) unknown) (unknown) (no (unknown) (unknown) Stop: 11/24/22 13:55 (uni ts (unknown) date) unknown) (unknown) (no (unknown) (unknown) Stroke (units (unkno wn) date) unknown) (unknown) (no (unknown) (unknown) Surgical History (units (unknown) date) (Reviewed 11/24/22 @ unknown) 12:59 by Marilyn Leigh DO) (unknown) (no (unknown) (unknown) TIA (transient (units (unknown) date) ischemic attack) unknown) (unknown) (no (unknown) (unknown) Temperature 98.1 F (units (unknown) date) 11/24/22 12:14 unknown) (unknown) (no (unknown) (unknown) Temperature 98.1 F (units (unknown) date) unknown) (unknown) (no (unknown) (unknown) This is 37-year-old (unit s (unknown) date) female with 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 (unknown) (no (unknown) (unknown) Time Seen by (units (u nknown) date) Provider: 11/24/22 unknown) 12:54 (unknown) (no (unknown) (unknown) Tinnitus (units (unkno wn) date) unknown) (unknown) (no (unknown) (unknown) Vertigo (units (unkno wn) date) unknown) (unknown) (no (unknown) (unknown) Vital Signs - 8 hr (units (unknown) date) unknown) (unknown) (no (unknown) (unknown) Vital Signs (units (un known) date) unknown) (unknown) (no (unknown) (unknown) Vital signs: (units (u nknown) date) unknown) (unknown) (no (unknown) (unknown) [DIHYDROERGOCRISTINE (uni ts (unknown) date) ] unknown) (unknown) (no (unknown) (unknown) [DIHYDROERGOTAMINE] (unit s (unknown) date) unknown) (unknown) (no (unknown) (unknown) [DIPHENHYDRAMINE] (units (unknown) date) unknown) (unknown) (no (unknown) (unknown) [From COMPAZINE] (units (unknown) date) unknown) (unknown) (no (unknown) (unknown) [METOCLOPRAMIDE] (units (unknown) date) unknown) (unknown) (no (unknown) (unknown) [PRASTERONE (DHEA)] (unit s (unknown) date) unknown) (unknown) (no (unknown) (unknown) a migraine last (units (unknown) date) night it had improved unknown) but seemed to return when this was (unknown) (no (unknown) (unknown) acetaminophen (units ( unknown) date) [ACETAMINOPHEN] unknown) Allergy Unknown Verified 11/24/22 13:15 (unknown) (no (unknown) (unknown) adhesive [ADHESIVE] (unit s (unknown) date) Allergy Unknown unknown) Verified 11/24/22 13:15 (unknown) (no (unknown) (unknown) aerosol inhaler (units (unknown) date) shortness of breath unknown) or wheezing (unknown) (no (unknown) (unknown) albuterol sulfate 90 (uni ts (unknown) date) mcg/actuation 2 puff unknown) inhalation Q6H PRN 10/10/22 (unknown) (no (unknown) (unknown) albuterol sulfate 90 (uni ts (unknown) date) mcg/actuation HFA unknown) aerosol inhaler (unknown) (no (unknown) (unknown) alcohol intake (units (unknown) date) frequency: 0-2 drinks unknown) per day (unknown) (no (unknown) (unknown) also states she (units (unknown) date) feels really anxious unknown) that she might be having an allergic (unknown) (no (unknown) (unknown) amitriptyline (units ( unknown) date) [AMITRIPTYLINE] unknown) Allergy Unknown Verified 11/24/22 13:15 (unknown) (no (unknown) (unknown) an injection for her (uni ts (unknown) date) HIDA scan when her unknown) symptoms started. Patient also (unknown) (no (unknown) (unknown) and below (units (unkn own) date) unknown) (unknown) (no (unknown) (unknown) and see if this (units (unknown) date) helps resolve her unknown) symptoms. Patient will require close (unknown) (no (unknown) (unknown) appears to be in (units (unknown) date) [id number] unknown) distress. (unknown) (no (unknown) (unknown) as a single dose (units (unknown) date) unknown) (unknown) (no (unknown) (unknown) aspirin [ASPIRIN] (units (unknown) date) Allergy Unknown unknown) Verified 11/24/22 13:15 (unknown) (no (unknown) (unknown) benzocaine (units (unk nown) date) [BENZOCAINE] Allergy unknown) Unknown Verified 11/24/22 13:15 (unknown) (no (unknown) (unknown) benzonatate 100 mg (units (unknown) date) capsule 100 mg PO unknown) BID-TID PRN cough #60 10/12/22 (unknown) (no (unknown) (unknown) benzonatate 100 mg (units (unknown) date) capsule unknown) (unknown) (no (unknown) (unknown) biotin 1 mg capsule (unit s (unknown) date) 1 mg PO DAILY unknown) 05/26/21 11/16/22 (unknown) (no (unknown) (unknown) biotin 1 mg capsule (unit s (unknown) date) unknown) (unknown) (no (unknown) (unknown) butamben [From (units (unknown) date) CETACAINE] Allergy unknown) Unknown Verified 11/24/22 13:15 (unknown) (no (unknown) (unknown) can not have (units (u nknown) date) steroids or Benadryl unknown) for allergic reaction she can only receive (unknown) (no (unknown) (unknown) can not take Benadryl (uni ts (unknown) date) or steroids as they unknown) will induce steroid psychosis and that (unknown) (no (unknown) (unknown) caps (units (unkno wn) date) unknown) (unknown) (no (unknown) (unknown) changes. She states (unit s (unknown) date) she is very nauseated unknown) but not actively vomiting. No (unknown) (no (unknown) (unknown) cholecalciferol (units (unknown) date) (vitamin D3) 250 250 unknown) mcg PO DAILY 05/26/21 11/16/22 (unknown) (no (unknown) (unknown) cholecalciferol (units (unknown) date) (vitamin D3) 250 mcg unknown) (10,000 unit) capsule (unknown) (no (unknown) (unknown) clonazepam 1 mg (units (unknown) date) tablet 1 - 2 mg PO unknown) BID 05/26/21 11/16/22 (unknown) (no (unknown) (unknown) clonazepam 1 mg (units (unknown) date) tablet unknown) (unknown) (no (unknown) (unknown) conjunctival pallor. (uni ts (unknown) date) Throat is clear unknown) without any exudates, erythema, tonsillar (unknown) (no (unknown) (unknown) continuously through (uni ts (unknown) date) a line and is then unknown) monitored once it stopped. Patient (unknown) (no (unknown) (unknown) developed headache (units (unknown) date) which she states is unknown) atypical. She is neurologically intact, (unknown) (no (unknown) (unknown) dexamethasone (units ( unknown) date) [DEXAMETHASONE] unknown) Allergy Unknown Verified 11/24/22 13:15 (unknown) (no (unknown) (unknown) dextroamphetamine-am (uni ts (unknown) date) phetamine 10 20 mg PO unknown) BID #0 tabs 05/26/21 11/16/22 (unknown) (no (unknown) (unknown) dextroamphetamine-am (uni ts (unknown) date) phetamine [Adderall] unknown) 10 mg tablet (unknown) (no (unknown) (unknown) diarrhea. She states (uni ts (unknown) date) no chest pain, she unknown) felt a little tight in her chest but (unknown) (no (unknown) (unknown) dicloxacillin (units ( unknown) date) [DICLOXACILLIN] unknown) Allergy Unknown Verified 11/24/22 13:15 (unknown) (no (unknown) (unknown) dihydroergocristine (unit s (unknown) date) Allergy Unknown unknown) Verified 11/24/22 13:15 (unknown) (no (unknown) (unknown) dihydroergotamine (units (unknown) date) Allergy Unknown unknown) Verified 11/24/22 13:15 (unknown) (no (unknown) (unknown) diphenhydramine (units (unknown) date) Allergy Unknown unknown) Verified 11/24/22 13:15 (unknown) (no (unknown) (unknown) enlargement or (units (unknown) date) uvular deviation, no unknown) oropharyngeal swelling, patient is resting (unknown) (no (unknown) (unknown) epinephrine 0.3 (units (unknown) date) mg/0.3 mL 0.3 mg IM unknown) ONCE 05/26/21 11/16/22 (unknown) (no (unknown) (unknown) epinephrine 0.3 (units (unknown) date) mg/0.3 mL unknown) auto-injector (unknown) (no (unknown) (unknown) epinephrine. (units (u nknown) date) Discussed giving IM unknown) epinephrine and she would like to try Zofran (unknown) (no (unknown) (unknown) extremities, full (units (unknown) date) range of motion, unknown) normal gait (unknown) (no (unknown) (unknown) for regimen, she has (uni ts (unknown) date) received a portion. unknown) (unknown) (no (unknown) (unknown) from. She has (units ( unknown) date) persistent headache unknown) symptoms and discussed giving her typical (unknown) (no (unknown) (unknown) frovatriptan (units (u nknown) date) [FROVATRIPTAN] unknown) Allergy Unknown Verified 11/24/22 13:15 (unknown) (no (unknown) (unknown) her typical migraine (uni ts (unknown) date) cocktail which is unknown) where her 8 mg of Zofran and fluids came (unknown) (no (unknown) (unknown) hydromorphone 2 mg (units (unknown) date) tablet 2 mg PO Q4-6H unknown) PRN 11/16/22 11/16/22 (unknown) (no (unknown) (unknown) hydromorphone 2 mg (units (unknown) date) tablet unknown) (unknown) (no (unknown) (unknown) hydroxyzine (units (un known) date) [HYDROXYZINE] Allergy unknown) Unknown Verified 11/24/22 13:15 (unknown) (no (unknown) (unknown) ibuprofen (units (unkn own) date) [IBUPROFEN] Allergy unknown) Unknown Verified 11/24/22 13:15 (unknown) (no (unknown) (unknown) in chair she is (units (unknown) date) speaking in full unknown) sentences, she is some slight hoarseness, no (unknown) (no (unknown) (unknown) injection, (units (unk nown) date) auto-injector unknown) (unknown) (no (unknown) (unknown) latex [LATEX] (units ( unknown) date) Allergy Unknown unknown) Verified 11/24/22 13:15 (unknown) (no (unknown) (unknown) little bit of a (units (unknown) date) headache. She has unknown) multiple medication allergies and received (unknown) (no (unknown) (unknown) lorazepam 0.5mg, (units (unknown) date) ketorolac 30 mg and unknown) Dilaudid 1 mg. (unknown) (no (unknown) (unknown) lower extremity, (units (unknown) date) insomnia, anxiety and unknown) multiple medication allergies. Patient (unknown) (no (unknown) (unknown) magnesium glycinate (unit s (unknown) date) 100 mg tablet 100 mg unknown) PO DAILY 05/26/21 11/16/22 (unknown) (no (unknown) (unknown) magnesium glycinate (unit s (unknown) date) 100 mg tablet unknown) (unknown) (no (unknown) (unknown) masses noted, no (units (unknown) date) hepatosplenomegaly unknown) (unknown) (no (unknown) (unknown) mcg (10,000 unit) (units (unknown) date) capsule unknown) (unknown) (no (unknown) (unknown) medication. Patient (unit s (unknown) date) has a letter from Dr. serrato) [place] [facility] on official letter head (unknown) (no (unknown) (unknown) melatonin 10 mg (units (unknown) date) capsule 10 mg PO unknown) BEDTIME PRN 05/26/21 11/16/22 (unknown) (no (unknown) (unknown) melatonin 10 mg (units (unknown) date) capsule unknown) (unknown) (no (unknown) (unknown) meloxicam 7.5 mg (units (unknown) date) tablet (Mobic) 15 mg unknown) PO [facility] 05/26/21 11/16/22 (unknown) (no (unknown) (unknown) meloxicam [Mobic] (units (unknown) date) 7.5 mg tablet unknown) (unknown) (no (unknown) (unknown) metoclopramide (units (unknown) date) Allergy Unknown unknown) Verified 11/24/22 13:15 (unknown) (no (unknown) (unknown) mg tablet (Adderall) (uni ts (unknown) date) unknown) (unknown) (no (unknown) (unknown) monitoring and if (units (unknown) date) any worsening she unknown) needs to receive IM epinephrine. (unknown) (no (unknown) (unknown) movements are (units ( unknown) date) intact, nares are unknown) clear, TMs are clear with no fluid, there is no (unknown) (no (unknown) (unknown) nortriptyline (units ( unknown) date) [NORTRIPTYLINE] unknown) Allergy Unknown Verified 11/24/22 13:15 (unknown) (no (unknown) (unknown) occurring. Patient (units (unknown) date) denies any fevers or unknown) chills. (unknown) (no (unknown) (unknown) prasterone (DHEA) (units (unknown) date) Allergy Unknown unknown) Verified 11/24/22 13:15 (unknown) (no (unknown) (unknown) prednisone (units (unk nown) date) [PREDNISONE] Allergy unknown) Unknown Verified 11/24/22 13:15 (unknown) (no (unknown) (unknown) pregabalin 100 mg (units (unknown) date) capsule (Lyrica) 200 unknown) mg PO BID 05/26/21 11/16/22 (unknown) (no (unknown) (unknown) pregabalin [Lyrica] (unit s (unknown) date) 100 mg capsule unknown) (unknown) (no (unknown) (unknown) prochlorperazine (units (unknown) date) Allergy Unknown unknown) Verified 11/24/22 13:15 (unknown) (no (unknown) (unknown) promethazine [From (units (unknown) date) PHENERGAN] Allergy unknown) Unknown Verified 11/24/22 13:15 (unknown) (no (unknown) (unknown) reaction as well. (units (unknown) date) She states multiple unknown) allergies to medications she states she (unknown) (no (unknown) (unknown) really anxious and (units (unknown) date) that maybe her throat unknown) was tight. She states no rash or skin (unknown) (no (unknown) (unknown) rizatriptan (units (un known) date) [RIZATRIPTAN] Allergy unknown) Unknown Verified 11/24/22 13:15 (unknown) (no (unknown) (unknown) sertraline 50 mg (units (unknown) date) tablet (Zoloft) 50 mg unknown) PO DAILY #60 tabs 11/16/22 (unknown) (no (unknown) (unknown) sertraline [Zoloft] (unit s (unknown) date) 50 mg tablet unknown) (unknown) (no (unknown) (unknown) she has had some (units (unknown) date) nausea but no unknown) vomiting. Discussed with patient she states she (unknown) (no (unknown) (unknown) states she did also (unit s (unknown) date) develop headache, she unknown) states she does have migraine she had (unknown) (no (unknown) (unknown) stridor (units (unkno wn) date) unknown) (unknown) (no (unknown) (unknown) sumatriptan (units (un known) date) [SUMATRIPTAN] Allergy unknown) Unknown Verified 11/24/22 13:15 (unknown) (no (unknown) (unknown) symmetrically (units ( unknown) date) unknown) (unknown) (no (unknown) (unknown) symptoms. Patient (units (unknown) date) has a letter from her unknown) provider at [facility] with (unknown) (no (unknown) (unknown) tablet (units (unkno wn) date) unknown) (unknown) (no (unknown) (unknown) temazepam 30 mg (units (unknown) date) capsule 30 mg PO unknown) BEDTIME PRN 05/26/21 11/16/22 (unknown) (no (unknown) (unknown) temazepam 30 mg (units (unknown) date) capsule unknown) (unknown) (no (unknown) (unknown) tetracaine (units (unk nown) date) [TETRACAINE] Allergy unknown) Unknown Verified 11/24/22 13:15 (unknown) (no (unknown) (unknown) that she was going (units (unknown) date) to vomit but did not unknown) actually vomit and states she felt (unknown) (no (unknown) (unknown) throat was clear but (uni ts (unknown) date) she also states she unknown) might just be anxious. She also has a (unknown) (no (unknown) (unknown) topiramate [From (units (unknown) date) TOPAMAX] Allergy unknown) Unknown Verified 11/24/22 13:15 (unknown) (no (unknown) (unknown) valproic acid (units ( unknown) date) [VALPROIC ACID] unknown) Allergy Unknown Verified 11/24/22 13:15 (unknown) (no (unknown) (unknown) vancomycin (units (unk nown) date) [VANCOMYCIN] Allergy unknown) Unknown Verified 11/24/22 13:15 (unknown) (no (unknown) (unknown) verapamil (units (unkn own) date) [VERAPAMIL] Allergy unknown) Unknown Verified 11/24/22 13:15 (unknown) (no (unknown) (unknown) was receiving an (units (unknown) date) injection during her unknown) HIDA scan and developed nausea sensation (unknown) (no (unknown) (unknown) when she is had (units (unknown) date) anaphylactic unknown) reactions she is received epinephrine either IM or (unknown) (no (unknown) (unknown) zinc sulfate 50 mg (units (unknown) date) zinc (220 mg) 50 mg unknown) PO DAILY 05/26/21 11/16/22 (unknown) (no (unknown) (unknown) zinc sulfate 50 mg (units (unknown) date) zinc (220 mg) tablet unknown) Result panel 177 (unknown) (no (unknown) (unknown) (no value) (units (unk nown) date) unknown) (unknown) (no (unknown) (unknown) #8.5 grams (units (unk nown) date) unknown) (unknown) (no (unknown) (unknown) 0.3 mg IM ONCE (units (unknown) date) unknown) (unknown) (no (unknown) (unknown) 11/24/22 (units (unkno wn) date) unknown) (unknown) (no (unknown) (unknown) 0RF (units (unkno wn) date) unknown) (unknown) (no (unknown) (unknown) 1 - 2 mg PO BID (units (unknown) date) unknown) (unknown) (no (unknown) (unknown) 1 mg PO DAILY (units ( unknown) date) unknown) (unknown) (no (unknown) (unknown) 10 mg PO BEDTIME PRN (uni ts (unknown) date) unknown) (unknown) (no (unknown) (unknown) 100 mg PO BID-TID (units (unknown) date) PRN (Reason: cough) unknown) Qty: 60 0RF (unknown) (no (unknown) (unknown) 100 mg PO DAILY (units (unknown) date) unknown) (unknown) (no (unknown) (unknown) 12:14 (units (unkno wn) date) unknown) (unknown) (no (unknown) (unknown) 15 mg PO [facility] (units ( unknown) date) unknown) (unknown) (no (unknown) (unknown) 2 mg PO Q4-6H PRN (units (unknown) date) unknown) (unknown) (no (unknown) (unknown) 2 puff inhalation (units (unknown) date) Q6H PRN (Reason: unknown) shortness of breath or wheezing) Qty: 8.5 (unknown) (no (unknown) (unknown) 20 mg PO BID Qty: 0 (unit s (unknown) date) unknown) (unknown) (no (unknown) (unknown) 200 mg PO BID (units ( unknown) date) unknown) (unknown) (no (unknown) (unknown) 250 mcg PO DAILY (units (unknown) date) unknown) (unknown) (no (unknown) (unknown) 30 mg PO BEDTIME PRN (uni ts (unknown) date) unknown) (unknown) (no (unknown) (unknown) 50 mg PO DAILY Qty: (unit s (unknown) date) 60 0RF unknown) (unknown) (no (unknown) (unknown) 50 mg PO DAILY (units (unknown) date) unknown) (unknown) (no (unknown) (unknown) 500 mL of fluid, O2 (unit s (unknown) date) at 12 liters/minute unknown) for at least 15 minutes, Zofran 8 mg, (unknown) (no (unknown) (unknown) ABD:bowel sounds (units (unknown) date) normal, soft, unknown) non-tender, no guarding, rebound, rigidity, no (unknown) (no (unknown) (unknown) AT SITE (units (unkno wn) date) unknown) (unknown) (no (unknown) (unknown) Age/Sex: 37 / F (units (unknown) date) unknown) (unknown) (no (unknown) (unknown) Allergies (units (unkn own) date) unknown) (unknown) (no (unknown) (unknown) Allergy/AdvReac Type (uni ts (unknown) date) Severity Reaction unknown) Status Date / Time (unknown) (no (unknown) (unknown) Anesthesia (units (unk nown) date) unknown) (unknown) (no (unknown) (unknown) Ankle pain (units (unk nown) date) unknown) (unknown) (no (unknown) (unknown) Anxiety (units (unkno wn) date) unknown) (unknown) (no (unknown) (unknown) Asthma (units (unkno wn) date) unknown) (unknown) (no (unknown) (unknown) Blood Pressure (units (unknown) date) 138/88 11/24/22 12:14 unknown) (unknown) (no (unknown) (unknown) Blood Pressure (units (unknown) date) 138 unknown) (unknown) (no (unknown) (unknown) Cardiac arrhythmia (units (unknown) date) unknown) (unknown) (no (unknown) (unknown) Cervical cyst (units ( unknown) date) unknown) (unknown) (no (unknown) (unknown) Chicken pox (units (un known) date) unknown) (unknown) (no (unknown) (unknown) Chief complaint: (units (unknown) date) Allergic Reaction unknown) (unknown) (no (unknown) (unknown) Course (units (unkno wn) date) unknown) (unknown) (no (unknown) (unknown) : 1985 (units (unknown) date) Acct:[id number] unknown) (unknown) (no (unknown) (unknown) Date of Service: (units (unknown) date) 11/24/22 unknown) (unknown) (no (unknown) (unknown) Departure (units (unkn own) date) unknown) (unknown) (no (unknown) (unknown) Depression (units (unk nown) date) unknown) (unknown) (no (unknown) (unknown) Discharge Plan (units (unknown) date) unknown) (unknown) (no (unknown) (unknown) Discontinued (units (u nknown) date) Medications unknown) (unknown) (no (unknown) (unknown) ER Physician: (units ( unknown) date) Marilyn Leigh D.O. unknown) (unknown) (no (unknown) (unknown) Emergency Report (units (unknown) date) unknown) (unknown) (no (unknown) (unknown) Endometriosis (units ( unknown) date) unknown) (unknown) (no (unknown) (unknown) Exam Narrative: (units (unknown) date) unknown) (unknown) (no (unknown) (unknown) Exam (units (unkno wn) date) unknown) (unknown) (no (unknown) (unknown) Family History (units (unknown) date) (Reviewed 11/24/22 @ unknown) 12:59 by Marilyn Leigh DO) (unknown) (no (unknown) (unknown) Family/Other Mental (unit s (unknown) date) health problem unknown) (unknown) (no (unknown) (unknown) Fibromyalgia (units (u nknown) date) unknown) (unknown) (no (unknown) (unknown) Foot pain (units (unkn own) date) unknown) (unknown) (no (unknown) (unknown) Fractures (units (unkn own) date) unknown) (unknown) (no (unknown) (unknown) GEN: well nourished, (uni ts (unknown) date) well appearing unknown) female, alert and oriented x 3, patient (unknown) (no (unknown) (unknown) GI bleeding (units (un known) date) unknown) (unknown) (no (unknown) (unknown) Gastric ulcer (units ( unknown) date) unknown) (unknown) (no (unknown) (unknown) General (units (unkno wn) date) unknown) (unknown) (no (unknown) (unknown) Grandfather (uni ts (unknown) date) Stroke unknown) (unknown) (no (unknown) (unknown) Grandmother Breast (units (unknown) date) cancer unknown) (unknown) (no (unknown) (unknown) Grandmother (uni ts (unknown) date) Stroke unknown) (unknown) (no (unknown) (unknown) HEART: Regular rate (unit s (unknown) date) and rhythm without unknown) murmur, clicks, rubs. (unknown) (no (unknown) (unknown) HEENT: Atraumatic, (units (unknown) date) pupils are equal unknown) round reactive to light, extraocular (unknown) (no (unknown) (unknown) HPI - Allergic (units (unknown) date) Reaction unknown) (unknown) (no (unknown) (unknown) HPI narrative: (units (unknown) date) unknown) (unknown) (no (unknown) (unknown) Headache (units (unkno wn) date) unknown) (unknown) (no (unknown) (unknown) Hearing loss (units (u nknown) date) unknown) (unknown) (no (unknown) (unknown) Hemorrhoid (units (unk nown) date) unknown) (unknown) (no (unknown) (unknown) History of Present (units (unknown) date) Illness unknown) (unknown) (no (unknown) (unknown) History of [...] hernia repair unknown) (unknown) (no (unknown) (unknown) Home Medications (units (unknown) date) unknown) (unknown) (no (unknown) (unknown) Laurent Lucas MD (uni ts (unknown) date) [Primary Care unknown) Provider] (unknown) (no (unknown) (unknown) I did speak with new (uni ts (unknown) date) command DI, she unknown) received the medication that makes the (unknown) (no (unknown) (unknown) Initial Vital Signs (unit s (unknown) date) unknown) (unknown) (no (unknown) (unknown) Initial Vital Signs: (uni ts (unknown) date) unknown) (unknown) (no (unknown) (unknown) Interstitial (units (u nknown) date) cystitis unknown) (unknown) (no (unknown) (unknown) [facility] [address]uni ts (unknown) date) [address]) [place] [address] (unknown) (no (unknown) (unknown) Kidney stones (units ( unknown) date) unknown) (unknown) (no (unknown) (unknown) LUNGS:Lungs clear to (uni ts (unknown) date) auscultation, no unknown) wheezes, rales, crackles, chest moves (unknown) (no (unknown) (unknown) Last Admin: 11/24/22 (uni ts (unknown) date) 13:01 Dose: 4 mg unknown) (unknown) (no (unknown) (unknown) Last Admin: 11/24/22 (uni ts (unknown) date) 13:33 Dose: 1,000 unknown) mls/hr (unknown) (no (unknown) (unknown) Last Admin: 11/24/22 (uni ts (unknown) date) 13:33 Dose: 4 mg unknown) (unknown) (no (unknown) (unknown) [id number] (units (unk nown) date) unknown) (unknown) (no (unknown) (unknown) MDM - Allergic (units (unknown) date) Reaction unknown) (unknown) (no (unknown) (unknown) MDM Narrative (units ( unknown) date) unknown) (unknown) (no (unknown) (unknown) MSCL: Non-tender, no (uni ts (unknown) date) muscle atrophy, unknown) muscles strength 5/5 upper and lower (unknown) (no (unknown) (unknown) Medical History (units (unknown) date) (Reviewed 11/24/22 @ unknown) 12:59 by Marilyn Leigh DO) (unknown) (no (unknown) (unknown) Medical decision (units (unknown) date) making narrative: unknown) (unknown) (no (unknown) (unknown) Medication (units (unk nown) date) Instructions Recorded unknown) Confirmed (unknown) (no (unknown) (unknown) Medication (units (unk nown) date) Instructions Recorded unknown) (unknown) (no (unknown) (unknown) Mental health (units ( unknown) date) problem unknown) (unknown) (no (unknown) (unknown) Migraines (units (unkn own) date) unknown) (unknown) (no (unknown) (unknown) Mode of arrival: (units (unknown) date) Wheelchair unknown) (unknown) (no (unknown) (unknown) Mother (units (unknown) date) Cancer unknown) (unknown) (no (unknown) (unknown) NEURO:CN 2-12 (units ( unknown) date) intact, sensation unknown) normal (unknown) (no (unknown) (unknown) Narrative (units (unkn own) date) unknown) (unknown) (no (unknown) (unknown) No Action (units (unkn own) date) unknown) (unknown) (no (unknown) (unknown) Ondansetron HCl (units (unknown) date) (Ondansetron 4 Mg/2 unknown) Ml Inj) 4 mg IV NOW ONE (unknown) (no (unknown) (unknown) Ordered: (units (unkno wn) date) unknown) (unknown) (no (unknown) (unknown) Orders (units (unkno wn) date) unknown) (unknown) (no (unknown) (unknown) Ovarian cyst (units (u nknown) date) unknown) (unknown) (no (unknown) (unknown) Oxygen Delivery (units (unknown) date) Method Room Air unknown) 11/24/22 12:14 (unknown) (no (unknown) (unknown) Oxygen Delivery (units (unknown) date) Method Room Air unknown) (unknown) (no (unknown) (unknown) PLASTIC MEDICAL TAPE (uni ts (unknown) date) Allergy Mild BLISTERS unknown) Uncoded 11/16/22 11:38 (unknown) (no (unknown) (unknown) PTSD (post-traumatic (uni ts (unknown) date) stress disorder) unknown) (unknown) (no (unknown) (unknown) Painful menstrual (units (unknown) date) periods unknown) (unknown) (no (unknown) (unknown) Patient History (units (unknown) date) unknown) (unknown) (no (unknown) (unknown) Patient was seen (units (unknown) date) evaluated, she is unknown) hoarse she has nausea she felt like maybe her (unknown) (no (unknown) (unknown) Patient: (units (unkno wn) date) MaxwellBibi W unknown) MR#: (unknown) (no (unknown) (unknown) Prescriptions: (units (unknown) date) unknown) (unknown) (no (unknown) (unknown) Previous Rx's (units ( unknown) date) unknown) (unknown) (no (unknown) (unknown) Pulse Oximetry 100 (units (unknown) date) 11/24/22 12:14 unknown) (unknown) (no (unknown) (unknown) Pulse Oximetry 100 (units (unknown) date) unknown) (unknown) (no (unknown) (unknown) Pulse Rate 89 (units ( unknown) date) 11/24/22 12:14 unknown) (unknown) (no (unknown) (unknown) Pulse Rate 89 (units ( unknown) date) unknown) (unknown) (no (unknown) (unknown) ROS Unobtainable: All (uni ts (unknown) date) systems reviewed + unknown) are unremarkable except as noted in HPI (unknown) (no (unknown) (unknown) Recheck patient (units (unknown) date) states airway is unknown) feeling good but still having migraine (unknown) (no (unknown) (unknown) Referrals: (units (unk nown) date) unknown) (unknown) (no (unknown) (unknown) Related Data (units (u nknown) date) unknown) (unknown) (no (unknown) (unknown) Respiratory Rate 22 (unit s (unknown) date) 11/24/22 12:14 unknown) (unknown) (no (unknown) (unknown) Respiratory Rate 22 (unit s (unknown) date) unknown) (unknown) (no (unknown) (unknown) Review of Systems (units (unknown) date) unknown) (unknown) (no (unknown) (unknown) Ruptured tympanic (units (unknown) date) membrane unknown) (unknown) (no (unknown) (unknown) Rx Instructions: (units (unknown) date) unknown) (unknown) (no (unknown) (unknown) SKIN: No rash, no (units (unknown) date) erythema or other unknown) skin changes. (unknown) (no (unknown) (unknown) Shoulder pain (units ( unknown) date) () unknown) (unknown) (no (unknown) (unknown) Signed By: (units (unk nown) date) unknown) (unknown) (no (unknown) (unknown) Smoking Status: (units (unknown) date) Former smoker unknown) (unknown) (no (unknown) (unknown) Social History (units (unknown) date) (Reviewed 11/24/22 @ unknown) 12:59 by Marilyn Leigh DO) (unknown) (no (unknown) (unknown) Sodium Chloride (units (unknown) date) (Normal Saline 0.9%) unknown) 500 mls @ 1,000 mls/hr IV BOLUS ONE (unknown) (no (unknown) (unknown) Source: patient (units (unknown) date) unknown) (unknown) (no (unknown) (unknown) Stated complaint: (units (unknown) date) nausea head pain unknown) physician ref sent from labs (unknown) (no (unknown) (unknown) Stop: 11/24/22 12:57 (uni ts (unknown) date) unknown) (unknown) (no (unknown) (unknown) Stop: 11/24/22 13:27 (uni ts (unknown) date) unknown) (unknown) (no (unknown) (unknown) Stop: 11/24/22 13:55 (uni ts (unknown) date) unknown) (unknown) (no (unknown) (unknown) Stroke (units (unkno wn) date) unknown) (unknown) (no (unknown) (unknown) Surgical History (units (unknown) date) (Reviewed 11/24/22 @ unknown) 12:59 by Marilyn Leigh DO) (unknown) (no (unknown) (unknown) TIA (transient (units (unknown) date) ischemic attack) unknown) (unknown) (no (unknown) (unknown) Temperature 98.1 F (units (unknown) date) 11/24/22 12:14 unknown) (unknown) (no (unknown) (unknown) Temperature 98.1 F (units (unknown) date) unknown) (unknown) (no (unknown) (unknown) This is 37-year-old (unit s (unknown) date) female with 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 (unknown) (no (unknown) (unknown) Time Seen by (units (u nknown) date) Provider: 11/24/22 unknown) 12:54 (unknown) (no (unknown) (unknown) Tinnitus (units (unkno wn) date) unknown) (unknown) (no (unknown) (unknown) Vertigo (units (unkno wn) date) unknown) (unknown) (no (unknown) (unknown) Vital Signs - 8 hr (units (unknown) date) unknown) (unknown) (no (unknown) (unknown) Vital Signs (units (un known) date) unknown) (unknown) (no (unknown) (unknown) Vital signs: (units (u nknown) date) unknown) (unknown) (no (unknown) (unknown) [DIHYDROERGOCRISTINE (uni ts (unknown) date) ] unknown) (unknown) (no (unknown) (unknown) [DIHYDROERGOTAMINE] (unit s (unknown) date) unknown) (unknown) (no (unknown) (unknown) [DIPHENHYDRAMINE] (units (unknown) date) unknown) (unknown) (no (unknown) (unknown) [From COMPAZINE] (units (unknown) date) unknown) (unknown) (no (unknown) (unknown) [METOCLOPRAMIDE] (units (unknown) date) unknown) (unknown) (no (unknown) (unknown) [PRASTERONE (DHEA)] (unit s (unknown) date) unknown) (unknown) (no (unknown) (unknown) a migraine last (units (unknown) date) night it had improved unknown) but seemed to return when this was (unknown) (no (unknown) (unknown) acetaminophen (units ( unknown) date) [ACETAMINOPHEN] unknown) Allergy Unknown Verified 11/24/22 13:15 (unknown) (no (unknown) (unknown) adhesive [ADHESIVE] (unit s (unknown) date) Allergy Unknown unknown) Verified 11/24/22 13:15 (unknown) (no (unknown) (unknown) aerosol inhaler (units (unknown) date) shortness of breath unknown) or wheezing (unknown) (no (unknown) (unknown) albuterol sulfate 90 (uni ts (unknown) date) mcg/actuation 2 puff unknown) inhalation Q6H PRN 10/10/22 (unknown) (no (unknown) (unknown) albuterol sulfate 90 (uni ts (unknown) date) mcg/actuation HFA unknown) aerosol inhaler (unknown) (no (unknown) (unknown) alcohol intake (units (unknown) date) frequency: 0-2 drinks unknown) per day (unknown) (no (unknown) (unknown) also states she (units (unknown) date) feels really anxious unknown) that she might be having an allergic (unknown) (no (unknown) (unknown) amitriptyline (units ( unknown) date) [AMITRIPTYLINE] unknown) Allergy Unknown Verified 11/24/22 13:15 (unknown) (no (unknown) (unknown) an injection for her (uni ts (unknown) date) HIDA scan when her unknown) symptoms started. Patient also (unknown) (no (unknown) (unknown) and below (units (unkn own) date) unknown) (unknown) (no (unknown) (unknown) and see if this (units (unknown) date) helps resolve her unknown) symptoms. Patient will require close (unknown) (no (unknown) (unknown) appears to be in (units (unknown) date) asoe-ed-meyielbx unknown) distress. (unknown) (no (unknown) (unknown) as a single dose (units (unknown) date) unknown) (unknown) (no (unknown) (unknown) aspirin [ASPIRIN] (units (unknown) date) Allergy Unknown unknown) Verified 11/24/22 13:15 (unknown) (no (unknown) (unknown) benzocaine (units (unk nown) date) [BENZOCAINE] Allergy unknown) Unknown Verified 11/24/22 13:15 (unknown) (no (unknown) (unknown) benzonatate 100 mg (units (unknown) date) capsule 100 mg PO unknown) BID-TID PRN cough #60 10/12/22 (unknown) (no (unknown) (unknown) benzonatate 100 mg (units (unknown) date) capsule unknown) (unknown) (no (unknown) (unknown) biotin 1 mg capsule (unit s (unknown) date) 1 mg PO DAILY unknown) 05/26/21 11/16/22 (unknown) (no (unknown) (unknown) biotin 1 mg capsule (unit s (unknown) date) unknown) (unknown) (no (unknown) (unknown) butamben [From (units (unknown) date) CETACAINE] Allergy unknown) Unknown Verified 11/24/22 13:15 (unknown) (no (unknown) (unknown) can not have (units (u nknown) date) steroids or Benadryl unknown) for allergic reaction she can only receive (unknown) (no (unknown) (unknown) can not take Benadryl (uni ts (unknown) date) or steroids as they unknown) will induce steroid psychosis and that (unknown) (no (unknown) (unknown) caps (units (unkno wn) date) unknown) (unknown) (no (unknown) (unknown) changes. She states (unit s (unknown) date) she is very nauseated unknown) but not actively vomiting. No (unknown) (no (unknown) (unknown) cholecalciferol (units (unknown) date) (vitamin D3) 250 250 unknown) mcg PO DAILY 05/26/21 11/16/22 (unknown) (no (unknown) (unknown) cholecalciferol (units (unknown) date) (vitamin D3) 250 mcg unknown) (10,000 unit) capsule (unknown) (no (unknown) (unknown) clonazepam 1 mg (units (unknown) date) tablet 1 - 2 mg PO unknown) BID 05/26/21 11/16/22 (unknown) (no (unknown) (unknown) clonazepam 1 mg (units (unknown) date) tablet unknown) (unknown) (no (unknown) (unknown) conjunctival pallor. (uni ts (unknown) date) Throat is clear unknown) without any exudates, erythema, tonsillar (unknown) (no (unknown) (unknown) continuously through (uni ts (unknown) date) a line and is then unknown) monitored once it stopped. Patient (unknown) (no (unknown) (unknown) developed headache (units (unknown) date) which she states is unknown) atypical. She is neurologically intact, (unknown) (no (unknown) (unknown) dexamethasone (units ( unknown) date) [DEXAMETHASONE] unknown) Allergy Unknown Verified 11/24/22 13:15 (unknown) (no (unknown) (unknown) dextroamphetamine-am (uni ts (unknown) date) phetamine 10 20 mg PO unknown) BID #0 tabs 05/26/21 11/16/22 (unknown) (no (unknown) (unknown) dextroamphetamine-am (uni ts (unknown) date) phetamine [Adderall] unknown) 10 mg tablet (unknown) (no (unknown) (unknown) diarrhea. She states (uni ts (unknown) date) no chest pain, she unknown) felt a little tight in her chest but (unknown) (no (unknown) (unknown) dicloxacillin (units ( unknown) date) [DICLOXACILLIN] unknown) Allergy Unknown Verified 11/24/22 13:15 (unknown) (no (unknown) (unknown) dihydroergocristine (unit s (unknown) date) Allergy Unknown unknown) Verified 11/24/22 13:15 (unknown) (no (unknown) (unknown) dihydroergotamine (units (unknown) date) Allergy Unknown unknown) Verified 11/24/22 13:15 (unknown) (no (unknown) (unknown) diphenhydramine (units (unknown) date) Allergy Unknown unknown) Verified 11/24/22 13:15 (unknown) (no (unknown) (unknown) enlargement or (units (unknown) date) uvular deviation, no unknown) oropharyngeal swelling, patient is resting (unknown) (no (unknown) (unknown) epinephrine 0.3 (units (unknown) date) mg/0.3 mL 0.3 mg IM unknown) ONCE 05/26/21 11/16/22 (unknown) (no (unknown) (unknown) epinephrine 0.3 (units (unknown) date) mg/0.3 mL unknown) auto-injector (unknown) (no (unknown) (unknown) epinephrine. (units (u nknown) date) Discussed giving IM unknown) epinephrine and she would like to try Zofran (unknown) (no (unknown) (unknown) extremities, full (units (unknown) date) range of motion, unknown) normal gait (unknown) (no (unknown) (unknown) for regimen, she has (uni ts (unknown) date) received a portion unknown) with fluids and Zofran already. (unknown) (no (unknown) (unknown) from. She has (units ( unknown) date) persistent headache unknown) symptoms and discussed giving her typical (unknown) (no (unknown) (unknown) frovatriptan (units (u nknown) date) [FROVATRIPTAN] unknown) Allergy Unknown Verified 11/24/22 13:15 (unknown) (no (unknown) (unknown) gallbladder (units (un known) date) contract, the unknown) half-life that medication is 1.3 minutes. (unknown) (no (unknown) (unknown) her typical migraine (uni ts (unknown) date) cocktail which is unknown) where her 8 mg of Zofran and fluids came (unknown) (no (unknown) (unknown) hydromorphone 2 mg (units (unknown) date) tablet 2 mg PO Q4-6H unknown) PRN 11/16/22 11/16/22 (unknown) (no (unknown) (unknown) hydromorphone 2 mg (units (unknown) date) tablet unknown) (unknown) (no (unknown) (unknown) hydroxyzine (units (un known) date) [HYDROXYZINE] Allergy unknown) Unknown Verified 11/24/22 13:15 (unknown) (no (unknown) (unknown) ibuprofen (units (unkn own) date) [IBUPROFEN] Allergy unknown) Unknown Verified 11/24/22 13:15 (unknown) (no (unknown) (unknown) in chair she is (units (unknown) date) speaking in full unknown) sentences, she is some slight hoarseness, no (unknown) (no (unknown) (unknown) injection, (units (unk nown) date) auto-injector unknown) (unknown) (no (unknown) (unknown) latex [LATEX] (units ( unknown) date) Allergy Unknown unknown) Verified 11/24/22 13:15 (unknown) (no (unknown) (unknown) little bit of a (units (unknown) date) headache. She has unknown) multiple medication allergies and received (unknown) (no (unknown) (unknown) lorazepam 0.5mg, (units (unknown) date) ketorolac 30 mg and unknown) Dilaudid 1 mg. (unknown) (no (unknown) (unknown) lower extremity, (units (unknown) date) insomnia, anxiety and unknown) multiple medication allergies. Patient (unknown) (no (unknown) (unknown) magnesium glycinate (unit s (unknown) date) 100 mg tablet 100 mg unknown) PO DAILY 05/26/21 11/16/22 (unknown) (no (unknown) (unknown) magnesium glycinate (unit s (unknown) date) 100 mg tablet unknown) (unknown) (no (unknown) (unknown) masses noted, no (units (unknown) date) hepatosplenomegaly unknown) (unknown) (no (unknown) (unknown) mcg (10,000 unit) (units (unknown) date) capsule unknown) (unknown) (no (unknown) (unknown) medication. Patient (unit s (unknown) date) has a letter from Dr. serrato) Nils garcia on official letter head (unknown) (no (unknown) (unknown) melatonin 10 mg (units (unknown) date) capsule 10 mg PO unknown) BEDTIME PRN 05/26/21 11/16/22 (unknown) (no (unknown) (unknown) melatonin 10 mg (units (unknown) date) capsule unknown) (unknown) (no (unknown) (unknown) meloxicam 7.5 mg (units (unknown) date) tablet (Mobic) 15 mg unknown) PO [facility] 05/26/21 11/16/22 (unknown) (no (unknown) (unknown) meloxicam [Mobic] (units (unknown) date) 7.5 mg tablet unknown) (unknown) (no (unknown) (unknown) metoclopramide (units (unknown) date) Allergy Unknown unknown) Verified 11/24/22 13:15 (unknown) (no (unknown) (unknown) mg tablet (Adderall) (uni ts (unknown) date) unknown) (unknown) (no (unknown) (unknown) monitoring and if (units (unknown) date) any worsening she unknown) needs to receive IM epinephrine. (unknown) (no (unknown) (unknown) movements are (units ( unknown) date) intact, nares are unknown) clear, TMs are clear with no fluid, there is no (unknown) (no (unknown) (unknown) nortriptyline (units ( unknown) date) [NORTRIPTYLINE] unknown) Allergy Unknown Verified 11/24/22 13:15 (unknown) (no (unknown) (unknown) occurring. Patient (units (unknown) date) denies any fevers or unknown) chills. (unknown) (no (unknown) (unknown) prasterone (DHEA) (units (unknown) date) Allergy Unknown unknown) Verified 11/24/22 13:15 (unknown) (no (unknown) (unknown) prednisone (units (unk nown) date) [PREDNISONE] Allergy unknown) Unknown Verified 11/24/22 13:15 (unknown) (no (unknown) (unknown) pregabalin 100 mg (units (unknown) date) capsule (Lyrica) 200 unknown) mg PO BID 05/26/21 11/16/22 (unknown) (no (unknown) (unknown) pregabalin [Lyrica] (unit s (unknown) date) 100 mg capsule unknown) (unknown) (no (unknown) (unknown) prochlorperazine (units (unknown) date) Allergy Unknown unknown) Verified 11/24/22 13:15 (unknown) (no (unknown) (unknown) promethazine [From (units (unknown) date) PHENERGAN] Allergy unknown) Unknown Verified 11/24/22 13:15 (unknown) (no (unknown) (unknown) reaction as well. (units (unknown) date) She states multiple unknown) allergies to medications she states she (unknown) (no (unknown) (unknown) really anxious and (units (unknown) date) that maybe her throat unknown) was tight. She states no rash or skin (unknown) (no (unknown) (unknown) rizatriptan (units (un known) date) [RIZATRIPTAN] Allergy unknown) Unknown Verified 11/24/22 13:15 (unknown) (no (unknown) (unknown) sertraline 50 mg (units (unknown) date) tablet (Zoloft) 50 mg unknown) PO DAILY #60 tabs 11/16/22 (unknown) (no (unknown) (unknown) sertraline [Zoloft] (unit s (unknown) date) 50 mg tablet unknown) (unknown) (no (unknown) (unknown) she has had some (units (unknown) date) nausea but no unknown) vomiting. Discussed with patient she states she (unknown) (no (unknown) (unknown) states she did also (unit s (unknown) date) develop headache, she unknown) states she does have migraine she had (unknown) (no (unknown) (unknown) stridor (units (unkno wn) date) unknown) (unknown) (no (unknown) (unknown) sumatriptan (units (un known) date) [SUMATRIPTAN] Allergy unknown) Unknown Verified 11/24/22 13:15 (unknown) (no (unknown) (unknown) symmetrically (units ( unknown) date) unknown) (unknown) (no (unknown) (unknown) symptoms. Patient (units (unknown) date) has a letter from her unknown) provider at [facility] with (unknown) (no (unknown) (unknown) tablet (units (unkno wn) date) unknown) (unknown) (no (unknown) (unknown) temazepam 30 mg (units (unknown) date) capsule 30 mg PO unknown) BEDTIME PRN 05/26/21 11/16/22 (unknown) (no (unknown) (unknown) temazepam 30 mg (units (unknown) date) capsule unknown) (unknown) (no (unknown) (unknown) tetracaine (units (unk nown) date) [TETRACAINE] Allergy unknown) Unknown Verified 11/24/22 13:15 (unknown) (no (unknown) (unknown) that she was going (units (unknown) date) to vomit but did not unknown) actually vomit and states she felt (unknown) (no (unknown) (unknown) throat was clear but (uni ts (unknown) date) she also states she unknown) might just be anxious. She also has a (unknown) (no (unknown) (unknown) topiramate [From (units (unknown) date) TOPAMAX] Allergy unknown) Unknown Verified 11/24/22 13:15 (unknown) (no (unknown) (unknown) valproic acid (units ( unknown) date) [VALPROIC ACID] unknown) Allergy Unknown Verified 11/24/22 13:15 (unknown) (no (unknown) (unknown) vancomycin (units (unk nown) date) [VANCOMYCIN] Allergy unknown) Unknown Verified 11/24/22 13:15 (unknown) (no (unknown) (unknown) verapamil (units (unkn own) date) [VERAPAMIL] Allergy unknown) Unknown Verified 11/24/22 13:15 (unknown) (no (unknown) (unknown) was receiving an (units (unknown) date) injection during her unknown) HIDA scan and developed nausea sensation (unknown) (no (unknown) (unknown) when she is had (units (unknown) date) anaphylactic unknown) reactions she is received epinephrine either IM or (unknown) (no (unknown) (unknown) zinc sulfate 50 mg (units (unknown) date) zinc (220 mg) 50 mg unknown) PO DAILY 05/26/21 11/16/22 (unknown) (no (unknown) (unknown) zinc sulfate 50 mg (units (unknown) date) zinc (220 mg) tablet unknown) Result panel 178 (unknown) (no (unknown) (unknown) (no value) (units (unk nown) date) unknown) (unknown) (no (unknown) (unknown) #8.5 grams (units (unk nown) date) unknown) (unknown) (no (unknown) (unknown) 0.3 mg IM ONCE (units (unknown) date) unknown) (unknown) (no (unknown) (unknown) 11/24/22 (units (unkno wn) date) unknown) (unknown) (no (unknown) (unknown) 0RF (units (unkno wn) date) unknown) (unknown) (no (unknown) (unknown) 1 - 2 mg PO BID (units (unknown) date) unknown) (unknown) (no (unknown) (unknown) 1 mg PO DAILY (units ( unknown) date) unknown) (unknown) (no (unknown) (unknown) 10 mg PO BEDTIME PRN (uni ts (unknown) date) unknown) (unknown) (no (unknown) (unknown) 100 mg PO BID-TID (units (unknown) date) PRN (Reason: cough) unknown) Qty: 60 0RF (unknown) (no (unknown) (unknown) 100 mg PO DAILY (units (unknown) date) unknown) (unknown) (no (unknown) (unknown) 12:14 11/24/22 (units (unknown) date) unknown) (unknown) (no (unknown) (unknown) 13:19 11/24/22 (units (unknown) date) unknown) (unknown) (no (unknown) (unknown) 13:30 (units (unkno wn) date) unknown) (unknown) (no (unknown) (unknown) 14:00 11/24/22 (units (unknown) date) unknown) (unknown) (no (unknown) (unknown) 14:30 11/24/22 (units (unknown) date) unknown) (unknown) (no (unknown) (unknown) 14:37 11/24/22 (units (unknown) date) unknown) (unknown) (no (unknown) (unknown) 14:37 (units (unkno wn) date) unknown) (unknown) (no (unknown) (unknown) 14:39 11/24/22 (units (unknown) date) unknown) (unknown) (no (unknown) (unknown) 14:39 (units (unkno wn) date) unknown) (unknown) (no (unknown) (unknown) 14:42 11/24/22 (units (unknown) date) unknown) (unknown) (no (unknown) (unknown) 14:43 11/24/22 (units (unknown) date) unknown) (unknown) (no (unknown) (unknown) 14:43 (units (unkno wn) date) unknown) (unknown) (no (unknown) (unknown) 14:45 11/24/22 (units (unknown) date) unknown) (unknown) (no (unknown) (unknown) 14:45 (units (unkno wn) date) unknown) (unknown) (no (unknown) (unknown) 14:48 11/24/22 (units (unknown) date) unknown) (unknown) (no (unknown) (unknown) 14:52 11/24/22 (units (unknown) date) unknown) (unknown) (no (unknown) (unknown) 14:52 (units (unkno wn) date) unknown) (unknown) (no (unknown) (unknown) 14:54 11/24/22 (units (unknown) date) unknown) (unknown) (no (unknown) (unknown) 14:54 (units (unkno wn) date) unknown) (unknown) (no (unknown) (unknown) 14:57 11/24/22 (units (unknown) date) unknown) (unknown) (no (unknown) (unknown) 15 mg PO [facility] (units ( unknown) date) unknown) (unknown) (no (unknown) (unknown) 15:00 11/24/22 (units (unknown) date) unknown) (unknown) (no (unknown) (unknown) 15:00 (units (unkno wn) date) unknown) (unknown) (no (unknown) (unknown) 15:10 11/24/22 (units (unknown) date) unknown) (unknown) (no (unknown) (unknown) 15:10 (units (unkno wn) date) unknown) (unknown) (no (unknown) (unknown) 2 mg PO Q4-6H PRN (units (unknown) date) unknown) (unknown) (no (unknown) (unknown) 2 puff inhalation (units (unknown) date) Q6H PRN (Reason: unknown) shortness of breath or wheezing) Qty: 8.5 (unknown) (no (unknown) (unknown) 20 mg PO BID Qty: 0 (unit s (unknown) date) unknown) (unknown) (no (unknown) (unknown) 200 mg PO BID (units ( unknown) date) unknown) (unknown) (no (unknown) (unknown) 250 mcg PO DAILY (units (unknown) date) unknown) (unknown) (no (unknown) (unknown) 30 mg PO BEDTIME PRN (uni ts (unknown) date) unknown) (unknown) (no (unknown) (unknown) 50 mg PO DAILY Qty: (unit s (unknown) date) 60 0RF unknown) (unknown) (no (unknown) (unknown) 50 mg PO DAILY (units (unknown) date) unknown) (unknown) (no (unknown) (unknown) 500 mL of fluid, O2 (unit s (unknown) date) at 12 liters/minute unknown) for at least 15 minutes, Zofran 8 mg, (unknown) (no (unknown) (unknown) ABD:bowel sounds (units (unknown) date) normal, soft, unknown) non-tender, no guarding, rebound, rigidity, no (unknown) (no (unknown) (unknown) AT SITE (units (unkno wn) date) unknown) (unknown) (no (unknown) (unknown) Activity (units (unkno wn) date) Restrictions/Addition unknown) al Instructions: (unknown) (no (unknown) (unknown) Admin: 11/24/22 (units (unknown) date) 13:33 Dose: 1,000 unknown) mls/hr (unknown) (no (unknown) (unknown) Age/Sex: 37 / F (units (unknown) date) unknown) (unknown) (no (unknown) (unknown) Allergies (units (unkn own) date) unknown) (unknown) (no (unknown) (unknown) Allergy/AdvReac Type (uni ts (unknown) date) Severity Reaction unknown) Status Date / Time (unknown) (no (unknown) (unknown) Anesthesia (units (unk nown) date) unknown) (unknown) (no (unknown) (unknown) Ankle pain (units (unk nown) date) unknown) (unknown) (no (unknown) (unknown) Anxiety (units (unkno wn) date) unknown) (unknown) (no (unknown) (unknown) Asthma (units (unkno wn) date) unknown) (unknown) (no (unknown) (unknown) Blood Pressure (units (unknown) date) 123/79 133/95 H unknown) (unknown) (no (unknown) (unknown) Blood Pressure (units (unknown) date) 128/89 125/85 unknown) (unknown) (no (unknown) (unknown) Blood Pressure (units (unknown) date) 131/84 unknown) (unknown) (no (unknown) (unknown) Blood Pressure (units (unknown) date) 131/88 unknown) (unknown) (no (unknown) (unknown) Blood Pressure (units (unknown) date) 132/81 unknown) (unknown) (no (unknown) (unknown) Blood Pressure (units (unknown) date) 134/80 131/76 unknown) (unknown) (no (unknown) (unknown) Blood Pressure (units (unknown) date) 134/83 130/77 unknown) (unknown) (no (unknown) (unknown) Blood Pressure (units (unknown) date) 138/88 11/24/22 12:14 unknown) (unknown) (no (unknown) (unknown) Blood Pressure (units (unknown) date) 138/88 unknown) (unknown) (no (unknown) (unknown) Blood Pressure (units (unknown) date) unknown) (unknown) (no (unknown) (unknown) Cardiac arrhythmia (units (unknown) date) unknown) (unknown) (no (unknown) (unknown) Cervical cyst (units ( unknown) date) unknown) (unknown) (no (unknown) (unknown) Chicken pox (units (un known) date) unknown) (unknown) (no (unknown) (unknown) Chief complaint: (units (unknown) date) Allergic Reaction unknown) (unknown) (no (unknown) (unknown) Clinical Impression: (uni ts (unknown) date) unknown) (unknown) (no (unknown) (unknown) Course (units (unkno wn) date) unknown) (unknown) (no (unknown) (unknown) : 1985 (units (unknown) date) Acct:[id number] unknown) (unknown) (no (unknown) (unknown) Date of Service: (units (unknown) date) 11/24/22 unknown) (unknown) (no (unknown) (unknown) Departure (units (unkn own) date) unknown) (unknown) (no (unknown) (unknown) Depression (units (unk nown) date) unknown) (unknown) (no (unknown) (unknown) Discharge Plan (units (unknown) date) unknown) (unknown) (no (unknown) (unknown) Discontinued (units (u nknown) date) Medications unknown) (unknown) (no (unknown) (unknown) Documented By: BS (units (unknown) date) unknown) (unknown) (no (unknown) (unknown) Documented By: KB (units (unknown) date) unknown) (unknown) (no (unknown) (unknown) Documented By: RL (units (unknown) date) unknown) (unknown) (no (unknown) (unknown) ER Physician: (units ( unknown) date) Marilyn Leigh D.O. unknown) (unknown) (no (unknown) (unknown) Emergency Report (units (unknown) date) unknown) (unknown) (no (unknown) (unknown) Endometriosis (units ( unknown) date) unknown) (unknown) (no (unknown) (unknown) Exam Narrative: (units (unknown) date) unknown) (unknown) (no (unknown) (unknown) Exam (units (unkno wn) date) unknown) (unknown) (no (unknown) (unknown) Family History (units (unknown) date) (Reviewed 11/24/22 @ unknown) 12:59 by Marilyn Leigh DO) (unknown) (no (unknown) (unknown) Family/Other Mental (unit s (unknown) date) health problem unknown) (unknown) (no (unknown) (unknown) Fibromyalgia (units (u nknown) date) unknown) (unknown) (no (unknown) (unknown) Foot pain (units (unkn own) date) unknown) (unknown) (no (unknown) (unknown) Fractures (units (unkn own) date) unknown) (unknown) (no (unknown) (unknown) GEN: well nourished, (uni ts (unknown) date) well appearing unknown) female, alert and oriented x 3, patient (unknown) (no (unknown) (unknown) GI bleeding (units (un known) date) unknown) (unknown) (no (unknown) (unknown) Gastric ulcer (units ( unknown) date) unknown) (unknown) (no (unknown) (unknown) General (units (unkno wn) date) unknown) (unknown) (no (unknown) (unknown) Grandfather (uni ts (unknown) date) Stroke unknown) (unknown) (no (unknown) (unknown) Grandmother Breast (units (unknown) date) cancer unknown) (unknown) (no (unknown) (unknown) Grandmother (uni ts (unknown) date) Stroke unknown) (unknown) (no (unknown) (unknown) HEART: Regular rate (unit s (unknown) date) and rhythm without unknown) murmur, clicks, rubs. (unknown) (no (unknown) (unknown) HEENT: Atraumatic, (units (unknown) date) pupils are equal unknown) round reactive to light, extraocular (unknown) (no (unknown) (unknown) HIDA scan. (units (unk nown) date) unknown) (unknown) (no (unknown) (unknown) HPI - Allergic (units (unknown) date) Reaction unknown) (unknown) (no (unknown) (unknown) HPI narrative: (units (unknown) date) unknown) (unknown) (no (unknown) (unknown) Headache (units (unkno wn) date) unknown) (unknown) (no (unknown) (unknown) Hearing loss (units (u nknown) date) unknown) (unknown) (no (unknown) (unknown) Hemorrhoid (units (unk nown) date) unknown) (unknown) (no (unknown) (unknown) History of Present (units (unknown) date) Illness unknown) (unknown) (no (unknown) (unknown) History of [...] hernia repair unknown) (unknown) (no (unknown) (unknown) Home Medications (units (unknown) date) unknown) (unknown) (no (unknown) (unknown) Laurent Lucas MD (uni ts (unknown) date) [Primary Care unknown) Provider] (unknown) (no (unknown) (unknown) Hydromorphone HCl (units (unknown) date) (Hydromorphone 1 Mg unknown) Inj) 1 mg IV NOW ONE (unknown) (no (unknown) (unknown) I did speak with new (uni ts (unknown) date) command DI, she unknown) received the medication that makes the (unknown) (no (unknown) (unknown) I hope you continue (unit s (unknown) date) to feel improved. unknown) (unknown) (no (unknown) (unknown) I would continue (units (unknown) date) your home medications unknown) as prescribed. (unknown) (no (unknown) (unknown) Initial Vital Signs (unit s (unknown) date) unknown) (unknown) (no (unknown) (unknown) Initial Vital Signs: (uni ts (unknown) date) unknown) (unknown) (no (unknown) (unknown) Interstitial (units (u nknown) date) cystitis unknown) (unknown) (no (unknown) (unknown) [facility] (uni ts (unknown) date) [address] [place] [address] unknown) [place] [address] (unknown) (no (unknown) (unknown) It is unclear if you (unit s (unknown) date) had a allergic unknown) reaction today or a normal response from the (unknown) (no (unknown) (unknown) Ketorolac (units (unkn own) date) Tromethamine unknown) (Ketorolac 30 Mg/Ml Vial) 30 mg IV NOW ONE (unknown) (no (unknown) (unknown) Kidney stones (units ( unknown) date) unknown) (unknown) (no (unknown) (unknown) LUNGS:Lungs clear to (uni ts (unknown) date) auscultation, no unknown) wheezes, rales, crackles, chest moves (unknown) (no (unknown) (unknown) Last Admin: 11/24/22 (uni ts (unknown) date) 13:01 Dose: 4 mg unknown) (unknown) (no (unknown) (unknown) Last Admin: 11/24/22 (uni ts (unknown) date) 13:33 Dose: 4 mg unknown) (unknown) (no (unknown) (unknown) Last Admin: 11/24/22 (uni ts (unknown) date) 14:30 Dose: 30 mg unknown) (unknown) (no (unknown) (unknown) Last Admin: 11/24/22 (uni ts (unknown) date) 14:31 Dose: 0.5 mg unknown) (unknown) (no (unknown) (unknown) Last Admin: 11/24/22 (uni ts (unknown) date) 14:31 Dose: 1 mg unknown) (unknown) (no (unknown) (unknown) Last Infusion: (units (unknown) date) 11/24/22 15:08 Dose: unknown) 0 mls/hr (unknown) (no (unknown) (unknown) Lorazepam (Lorazepam (uni ts (unknown) date) 2 Mg/Ml Inj) 0.5 mg unknown) IV NOW ONE (unknown) (no (unknown) (unknown) [id number] (units (unk nown) date) unknown) (unknown) (no (unknown) (unknown) MDM - Allergic (units (unknown) date) Reaction unknown) (unknown) (no (unknown) (unknown) MDM Narrative (units ( unknown) date) unknown) (unknown) (no (unknown) (unknown) MSCL: Non-tender, no (uni ts (unknown) date) muscle atrophy, unknown) muscles strength 5/5 upper and lower (unknown) (no (unknown) (unknown) Medical History (units (unknown) date) (Reviewed 11/24/22 @ unknown) 12:59 by Marilyn Leigh DO) (unknown) (no (unknown) (unknown) Medical decision (units (unknown) date) making narrative: unknown) (unknown) (no (unknown) (unknown) Medication (units (unk nown) date) Instructions Recorded unknown) Confirmed (unknown) (no (unknown) (unknown) Medication (units (unk nown) date) Instructions Recorded unknown) (unknown) (no (unknown) (unknown) Mental health (units ( unknown) date) problem unknown) (unknown) (no (unknown) (unknown) Migraine (units (unkno wn) date) unknown) (unknown) (no (unknown) (unknown) Migraines (units (unkn own) date) unknown) (unknown) (no (unknown) (unknown) Mode of arrival: (units (unknown) date) Wheelchair unknown) (unknown) (no (unknown) (unknown) Mother (units (unknown) date) Cancer unknown) (unknown) (no (unknown) (unknown) NEURO:CN 2-12 (units ( unknown) date) intact, sensation unknown) normal (unknown) (no (unknown) (unknown) Narrative (units (unkn own) date) unknown) (unknown) (no (unknown) (unknown) No Action (units (unkn own) date) unknown) (unknown) (no (unknown) (unknown) Ondansetron HCl (units (unknown) date) (Ondansetron 4 Mg/2 unknown) Ml Inj) 4 mg IV NOW ONE (unknown) (no (unknown) (unknown) Ordered: (units (unkno wn) date) unknown) (unknown) (no (unknown) (unknown) Orders (units (unkno wn) date) unknown) (unknown) (no (unknown) (unknown) Ovarian cyst (units (u nknown) date) unknown) (unknown) (no (unknown) (unknown) Oxygen Delivery (units (unknown) date) Method Room Air unknown) 11/24/22 12:14 (unknown) (no (unknown) (unknown) Oxygen Delivery (units (unknown) date) Method Room Air unknown) (unknown) (no (unknown) (unknown) Oxygen Delivery (units (unknown) date) Method unknown) (unknown) (no (unknown) (unknown) PLASTIC MEDICAL TAPE (uni ts (unknown) date) Allergy Mild BLISTERS unknown) Uncoded 11/16/22 11:38 (unknown) (no (unknown) (unknown) PTSD (post-traumatic (uni ts (unknown) date) stress disorder) unknown) (unknown) (no (unknown) (unknown) Painful menstrual (units (unknown) date) periods unknown) (unknown) (no (unknown) (unknown) Patient Disposition: (uni ts (unknown) date) Home unknown) (unknown) (no (unknown) (unknown) Patient History (units (unknown) date) unknown) (unknown) (no (unknown) (unknown) Patient was seen (units (unknown) date) evaluated, she is unknown) hoarse she has nausea she felt like maybe her (unknown) (no (unknown) (unknown) Patient: (units (unkno wn) date) Bibi Arreola W unknown) MR#: (unknown) (no (unknown) (unknown) Please return if you (uni ts (unknown) date) develop fevers, unknown) atypical migraine symptoms, new chest pain (unknown) (no (unknown) (unknown) Prescriptions: (units (unknown) date) unknown) (unknown) (no (unknown) (unknown) Previous Rx's (units ( unknown) date) unknown) (unknown) (no (unknown) (unknown) Pulse Oximetry 100 (units (unknown) date) 11/24/22 12:14 unknown) (unknown) (no (unknown) (unknown) Pulse Oximetry 100 (units (unknown) date) 100 unknown) (unknown) (no (unknown) (unknown) Pulse Oximetry 100 (units (unknown) date) 98 97 unknown) (unknown) (no (unknown) (unknown) Pulse Oximetry 100 (units (unknown) date) unknown) (unknown) (no (unknown) (unknown) Pulse Oximetry 98 (units (unknown) date) 100 100 unknown) (unknown) (no (unknown) (unknown) Pulse Rate 60 60 (units (unknown) date) unknown) (unknown) (no (unknown) (unknown) Pulse Rate 60 61 (units (unknown) date) unknown) (unknown) (no (unknown) (unknown) Pulse Rate 60 (units ( unknown) date) unknown) (unknown) (no (unknown) (unknown) Pulse Rate 61 (units ( unknown) date) unknown) (unknown) (no (unknown) (unknown) Pulse Rate 63 (units ( unknown) date) unknown) (unknown) (no (unknown) (unknown) Pulse Rate 67 64 (units (unknown) date) unknown) (unknown) (no (unknown) (unknown) Pulse Rate 72 (units ( unknown) date) unknown) (unknown) (no (unknown) (unknown) Pulse Rate 77 67 70 (unit s (unknown) date) unknown) (unknown) (no (unknown) (unknown) Pulse Rate 89 (units ( unknown) date) 11/24/22 12:14 unknown) (unknown) (no (unknown) (unknown) Pulse Rate 89 87 79 (unit s (unknown) date) unknown) (unknown) (no (unknown) (unknown) ROS Unobtainable: All (uni ts (unknown) date) systems reviewed + unknown) are unremarkable except as noted in HPI (unknown) (no (unknown) (unknown) Recheck patient (units (unknown) date) states airway is unknown) feeling good but still having migraine (unknown) (no (unknown) (unknown) Referrals: (units (unk nown) date) unknown) (unknown) (no (unknown) (unknown) Related Data (units (u nknown) date) unknown) (unknown) (no (unknown) (unknown) Respiratory Rate 22 (unit s (unknown) date) 11/24/22 12:14 unknown) (unknown) (no (unknown) (unknown) Respiratory Rate 22 (unit s (unknown) date) unknown) (unknown) (no (unknown) (unknown) Respiratory Rate (units (unknown) date) unknown) (unknown) (no (unknown) (unknown) Review of Systems (units (unknown) date) unknown) (unknown) (no (unknown) (unknown) Ruptured tympanic (units (unknown) date) membrane unknown) (unknown) (no (unknown) (unknown) Rx Instructions: (units (unknown) date) unknown) (unknown) (no (unknown) (unknown) SKIN: No rash, no (units (unknown) date) erythema or other unknown) skin changes. (unknown) (no (unknown) (unknown) Shoulder pain (units ( unknown) date) () unknown) (unknown) (no (unknown) (unknown) Signed By: (units (unk nown) date) unknown) (unknown) (no (unknown) (unknown) Smoking Status: (units (unknown) date) Former smoker unknown) (unknown) (no (unknown) (unknown) Social History (units (unknown) date) (Reviewed 11/24/22 @ unknown) 12:59 by Marilyn Leigh DO) (unknown) (no (unknown) (unknown) Sodium Chloride (units (unknown) date) (Normal Saline 0.9%) unknown) 500 mls @ 1,000 mls/hr IV BOLUS ONE (unknown) (no (unknown) (unknown) Source: patient (units (unknown) date) unknown) (unknown) (no (unknown) (unknown) Stand Alone Forms: (units (unknown) date) Patient Portal/API unknown) (unknown) (no (unknown) (unknown) Stated complaint: (units (unknown) date) nausea head pain unknown) physician ref sent from labs (unknown) (no (unknown) (unknown) Stop: 11/24/22 12:57 (uni ts (unknown) date) unknown) (unknown) (no (unknown) (unknown) Stop: 11/24/22 13:27 (uni ts (unknown) date) unknown) (unknown) (no (unknown) (unknown) Stop: 11/24/22 13:55 (uni ts (unknown) date) unknown) (unknown) (no (unknown) (unknown) Stop: 11/24/22 14:21 (uni ts (unknown) date) unknown) (unknown) (no (unknown) (unknown) Stroke (units (unkno wn) date) unknown) (unknown) (no (unknown) (unknown) Surgical History (units (unknown) date) (Reviewed 11/24/22 @ unknown) 12:59 by Marilyn Leigh DO) (unknown) (no (unknown) (unknown) TIA (transient (units (unknown) date) ischemic attack) unknown) (unknown) (no (unknown) (unknown) Temperature 98.1 F (units (unknown) date) 11/24/22 12:14 unknown) (unknown) (no (unknown) (unknown) Temperature 98.1 F (units (unknown) date) unknown) (unknown) (no (unknown) (unknown) Temperature (units (un known) date) unknown) (unknown) (no (unknown) (unknown) This is 37-year-old (unit s (unknown) date) female with 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 (unknown) (no (unknown) (unknown) Time Seen by (units (u nknown) date) Provider: 11/24/22 unknown) 12:54 (unknown) (no (unknown) (unknown) Tinnitus (units (unkno wn) date) unknown) (unknown) (no (unknown) (unknown) Vertigo (units (unkno wn) date) unknown) (unknown) (no (unknown) (unknown) Vital Signs - 8 hr (units (unknown) date) unknown) (unknown) (no (unknown) (unknown) Vital Signs (units (un known) date) unknown) (unknown) (no (unknown) (unknown) Vital signs: (units (u nknown) date) unknown) (unknown) (no (unknown) (unknown) [DIHYDROERGOCRISTINE (uni ts (unknown) date) ] unknown) (unknown) (no (unknown) (unknown) [DIHYDROERGOTAMINE] (unit s (unknown) date) unknown) (unknown) (no (unknown) (unknown) [DIPHENHYDRAMINE] (units (unknown) date) unknown) (unknown) (no (unknown) (unknown) [From COMPAZINE] (units (unknown) date) unknown) (unknown) (no (unknown) (unknown) [METOCLOPRAMIDE] (units (unknown) date) unknown) (unknown) (no (unknown) (unknown) [PRASTERONE (DHEA)] (unit s (unknown) date) unknown) (unknown) (no (unknown) (unknown) a migraine last (units (unknown) date) night it had improved unknown) but seemed to return when this was (unknown) (no (unknown) (unknown) acetaminophen (units ( unknown) date) [ACETAMINOPHEN] unknown) Allergy Unknown Verified 11/24/22 13:15 (unknown) (no (unknown) (unknown) adhesive [ADHESIVE] (unit s (unknown) date) Allergy Unknown unknown) Verified 11/24/22 13:15 (unknown) (no (unknown) (unknown) aerosol inhaler (units (unknown) date) shortness of breath unknown) or wheezing (unknown) (no (unknown) (unknown) albuterol sulfate 90 (uni ts (unknown) date) mcg/actuation 2 puff unknown) inhalation Q6H PRN 10/10/22 (unknown) (no (unknown) (unknown) albuterol sulfate 90 (uni ts (unknown) date) mcg/actuation HFA unknown) aerosol inhaler (unknown) (no (unknown) (unknown) alcohol intake (units (unknown) date) frequency: 0-2 drinks unknown) per day (unknown) (no (unknown) (unknown) also states she (units (unknown) date) feels really anxious unknown) that she might be having an allergic (unknown) (no (unknown) (unknown) amitriptyline (units ( unknown) date) [AMITRIPTYLINE] unknown) Allergy Unknown Verified 11/24/22 13:15 (unknown) (no (unknown) (unknown) an injection for her (uni ts (unknown) date) HIDA scan when her unknown) symptoms started. Patient also (unknown) (no (unknown) (unknown) and below (units (unkn own) date) unknown) (unknown) (no (unknown) (unknown) and see if this (units (unknown) date) helps resolve her unknown) symptoms. Patient will require close (unknown) (no (unknown) (unknown) appears to be in (units (unknown) date) [id number] unknown) distress. (unknown) (no (unknown) (unknown) as a single dose (units (unknown) date) unknown) (unknown) (no (unknown) (unknown) aspirin [ASPIRIN] (units (unknown) date) Allergy Unknown unknown) Verified 11/24/22 13:15 (unknown) (no (unknown) (unknown) benzocaine (units (unk nown) date) [BENZOCAINE] Allergy unknown) Unknown Verified 11/24/22 13:15 (unknown) (no (unknown) (unknown) benzonatate 100 mg (units (unknown) date) capsule 100 mg PO unknown) BID-TID PRN cough #60 10/12/22 (unknown) (no (unknown) (unknown) benzonatate 100 mg (units (unknown) date) capsule unknown) (unknown) (no (unknown) (unknown) biotin 1 mg capsule (unit s (unknown) date) 1 mg PO DAILY unknown) 05/26/21 11/16/22 (unknown) (no (unknown) (unknown) biotin 1 mg capsule (unit s (unknown) date) unknown) (unknown) (no (unknown) (unknown) butamben [From (units (unknown) date) CETACAINE] Allergy unknown) Unknown Verified 11/24/22 13:15 (unknown) (no (unknown) (unknown) can not have (units (u nknown) date) steroids or Benadryl unknown) for allergic reaction she can only receive (unknown) (no (unknown) (unknown) can not take Benadryl (uni ts (unknown) date) or steroids as they unknown) will induce steroid psychosis and that (unknown) (no (unknown) (unknown) caps (units (unkno wn) date) unknown) (unknown) (no (unknown) (unknown) changes. She states (unit s (unknown) date) she is very nauseated unknown) but not actively vomiting. No (unknown) (no (unknown) (unknown) cholecalciferol (units (unknown) date) (vitamin D3) 250 250 unknown) mcg PO DAILY 05/26/21 11/16/22 (unknown) (no (unknown) (unknown) cholecalciferol (units (unknown) date) (vitamin D3) 250 mcg unknown) (10,000 unit) capsule (unknown) (no (unknown) (unknown) clonazepam 1 mg (units (unknown) date) tablet 1 - 2 mg PO unknown) BID 05/26/21 11/16/22 (unknown) (no (unknown) (unknown) clonazepam 1 mg (units (unknown) date) tablet unknown) (unknown) (no (unknown) (unknown) conjunctival pallor. (uni ts (unknown) date) Throat is clear unknown) without any exudates, erythema, tonsillar (unknown) (no (unknown) (unknown) continuously through (uni ts (unknown) date) a line and is then unknown) monitored once it stopped. Patient (unknown) (no (unknown) (unknown) developed headache (units (unknown) date) which she states is unknown) atypical. She is neurologically intact, (unknown) (no (unknown) (unknown) dexamethasone (units ( unknown) date) [DEXAMETHASONE] unknown) Allergy Unknown Verified 11/24/22 13:15 (unknown) (no (unknown) (unknown) dextroamphetamine-am (uni ts (unknown) date) phetamine 10 20 mg PO unknown) BID #0 tabs 05/26/21 11/16/22 (unknown) (no (unknown) (unknown) dextroamphetamine-am (uni ts (unknown) date) phetamine [Adderall] unknown) 10 mg tablet (unknown) (no (unknown) (unknown) diarrhea. She states (uni ts (unknown) date) no chest pain, she unknown) felt a little tight in her chest but (unknown) (no (unknown) (unknown) dicloxacillin (units ( unknown) date) [DICLOXACILLIN] unknown) Allergy Unknown Verified 11/24/22 13:15 (unknown) (no (unknown) (unknown) dihydroergocristine (unit s (unknown) date) Allergy Unknown unknown) Verified 11/24/22 13:15 (unknown) (no (unknown) (unknown) dihydroergotamine (units (unknown) date) Allergy Unknown unknown) Verified 11/24/22 13:15 (unknown) (no (unknown) (unknown) diphenhydramine (units (unknown) date) Allergy Unknown unknown) Verified 11/24/22 13:15 (unknown) (no (unknown) (unknown) enlargement or (units (unknown) date) uvular deviation, no unknown) oropharyngeal swelling, patient is resting (unknown) (no (unknown) (unknown) epinephrine 0.3 (units (unknown) date) mg/0.3 mL 0.3 mg IM unknown) ONCE 05/26/21 11/16/22 (unknown) (no (unknown) (unknown) epinephrine 0.3 (units (unknown) date) mg/0.3 mL unknown) auto-injector (unknown) (no (unknown) (unknown) epinephrine. (units (u nknown) date) Discussed giving IM unknown) epinephrine and she would like to try Zofran (unknown) (no (unknown) (unknown) extremities, full (units (unknown) date) range of motion, unknown) normal gait (unknown) (no (unknown) (unknown) for regimen, she has (uni ts (unknown) date) received a portion unknown) with fluids and Zofran already. (unknown) (no (unknown) (unknown) from. She has (units ( unknown) date) persistent headache unknown) symptoms and discussed giving her typical (unknown) (no (unknown) (unknown) frovatriptan (units (u nknown) date) [FROVATRIPTAN] unknown) Allergy Unknown Verified 11/24/22 13:15 (unknown) (no (unknown) (unknown) gallbladder (units (un known) date) contract, the unknown) half-life that medication is 1.3 minutes. (unknown) (no (unknown) (unknown) her typical migraine (uni ts (unknown) date) cocktail which is unknown) where her 8 mg of Zofran and fluids came (unknown) (no (unknown) (unknown) hydromorphone 2 mg (units (unknown) date) tablet 2 mg PO Q4-6H unknown) PRN 11/16/22 11/16/22 (unknown) (no (unknown) (unknown) hydromorphone 2 mg (units (unknown) date) tablet unknown) (unknown) (no (unknown) (unknown) hydroxyzine (units (un known) date) [HYDROXYZINE] Allergy unknown) Unknown Verified 11/24/22 13:15 (unknown) (no (unknown) (unknown) ibuprofen (units (unkn own) date) [IBUPROFEN] Allergy unknown) Unknown Verified 11/24/22 13:15 (unknown) (no (unknown) (unknown) in chair she is (units (unknown) date) speaking in full unknown) sentences, she is some slight hoarseness, no (unknown) (no (unknown) (unknown) injection, (units (unk nown) date) auto-injector unknown) (unknown) (no (unknown) (unknown) latex [LATEX] (units ( unknown) date) Allergy Unknown unknown) Verified 11/24/22 13:15 (unknown) (no (unknown) (unknown) little bit of a (units (unknown) date) headache. She has unknown) multiple medication allergies and received (unknown) (no (unknown) (unknown) lorazepam 0.5mg, (units (unknown) date) ketorolac 30 mg and unknown) Dilaudid 1 mg. (unknown) (no (unknown) (unknown) lower extremity, (units (unknown) date) insomnia, anxiety and unknown) multiple medication allergies. Patient (unknown) (no (unknown) (unknown) magnesium glycinate (unit s (unknown) date) 100 mg tablet 100 mg unknown) PO DAILY 05/26/21 11/16/22 (unknown) (no (unknown) (unknown) magnesium glycinate (unit s (unknown) date) 100 mg tablet unknown) (unknown) (no (unknown) (unknown) masses noted, no (units (unknown) date) hepatosplenomegaly unknown) (unknown) (no (unknown) (unknown) mcg (10,000 unit) (units (unknown) date) capsule unknown) (unknown) (no (unknown) (unknown) medication that you (unit s (unknown) date) are given to make unknown) your gallbladder contract during your (unknown) (no (unknown) (unknown) medication. Patient (unit s (unknown) date) has a letter from Dr. serrato) Nils garcia on official letter head (unknown) (no (unknown) (unknown) melatonin 10 mg (units (unknown) date) capsule 10 mg PO unknown) BEDTIME PRN 05/26/21 11/16/22 (unknown) (no (unknown) (unknown) melatonin 10 mg (units (unknown) date) capsule unknown) (unknown) (no (unknown) (unknown) meloxicam 7.5 mg (units (unknown) date) tablet (Mobic) 15 mg unknown) PO [facility] 05/26/21 11/16/22 (unknown) (no (unknown) (unknown) meloxicam [Mobic] (units (unknown) date) 7.5 mg tablet unknown) (unknown) (no (unknown) (unknown) metoclopramide (units (unknown) date) Allergy Unknown unknown) Verified 11/24/22 13:15 (unknown) (no (unknown) (unknown) mg tablet (Adderall) (uni ts (unknown) date) unknown) (unknown) (no (unknown) (unknown) monitoring and if (units (unknown) date) any worsening she unknown) needs to receive IM epinephrine. (unknown) (no (unknown) (unknown) movements are (units ( unknown) date) intact, nares are unknown) clear, TMs are clear with no fluid, there is no (unknown) (no (unknown) (unknown) nortriptyline (units ( unknown) date) [NORTRIPTYLINE] unknown) Allergy Unknown Verified 11/24/22 13:15 (unknown) (no (unknown) (unknown) occurring. Patient (units (unknown) date) denies any fevers or unknown) chills. (unknown) (no (unknown) (unknown) or shortness of (units (unknown) date) breath, persistent unknown) vomiting, new or worsening abdominal pain or (unknown) (no (unknown) (unknown) other new or (units (u nknown) date) concerning changes. unknown) (unknown) (no (unknown) (unknown) prasterone (DHEA) (units (unknown) date) Allergy Unknown unknown) Verified 11/24/22 13:15 (unknown) (no (unknown) (unknown) prednisone (units (unk nown) date) [PREDNISONE] Allergy unknown) Unknown Verified 11/24/22 13:15 (unknown) (no (unknown) (unknown) pregabalin 100 mg (units (unknown) date) capsule (Lyrica) 200 unknown) mg PO BID 05/26/21 11/16/22 (unknown) (no (unknown) (unknown) pregabalin [Lyrica] (unit s (unknown) date) 100 mg capsule unknown) (unknown) (no (unknown) (unknown) prochlorperazine (units (unknown) date) Allergy Unknown unknown) Verified 11/24/22 13:15 (unknown) (no (unknown) (unknown) promethazine [From (units (unknown) date) PHENERGAN] Allergy unknown) Unknown Verified 11/24/22 13:15 (unknown) (no (unknown) (unknown) reaction as well. (units (unknown) date) She states multiple unknown) allergies to medications she states she (unknown) (no (unknown) (unknown) really anxious and (units (unknown) date) that maybe her throat unknown) was tight. She states no rash or skin (unknown) (no (unknown) (unknown) rizatriptan (units (un known) date) [RIZATRIPTAN] Allergy unknown) Unknown Verified 11/24/22 13:15 (unknown) (no (unknown) (unknown) sertraline 50 mg (units (unknown) date) tablet (Zoloft) 50 mg unknown) PO DAILY #60 tabs 11/16/22 (unknown) (no (unknown) (unknown) sertraline [Zoloft] (unit s (unknown) date) 50 mg tablet unknown) (unknown) (no (unknown) (unknown) she has had some (units (unknown) date) nausea but no unknown) vomiting. Discussed with patient she states she (unknown) (no (unknown) (unknown) states she did also (unit s (unknown) date) develop headache, she unknown) states she does have migraine she had (unknown) (no (unknown) (unknown) stridor (units (unkno wn) date) unknown) (unknown) (no (unknown) (unknown) sumatriptan (units (un known) date) [SUMATRIPTAN] Allergy unknown) Unknown Verified 11/24/22 13:15 (unknown) (no (unknown) (unknown) symmetrically (units ( unknown) date) unknown) (unknown) (no (unknown) (unknown) symptoms. Patient (units (unknown) date) has a letter from her unknown) provider at [facility] with (unknown) (no (unknown) (unknown) tablet (units (unkno wn) date) unknown) (unknown) (no (unknown) (unknown) temazepam 30 mg (units (unknown) date) capsule 30 mg PO unknown) BEDTIME PRN 05/26/21 11/16/22 (unknown) (no (unknown) (unknown) temazepam 30 mg (units (unknown) date) capsule unknown) (unknown) (no (unknown) (unknown) tetracaine (units (unk nown) date) [TETRACAINE] Allergy unknown) Unknown Verified 11/24/22 13:15 (unknown) (no (unknown) (unknown) that she was going (units (unknown) date) to vomit but did not unknown) actually vomit and states she felt (unknown) (no (unknown) (unknown) throat was clear but (uni ts (unknown) date) she also states she unknown) might just be anxious. She also has a (unknown) (no (unknown) (unknown) topiramate [From (units (unknown) date) TOPAMAX] Allergy unknown) Unknown Verified 11/24/22 13:15 (unknown) (no (unknown) (unknown) valproic acid (units ( unknown) date) [VALPROIC ACID] unknown) Allergy Unknown Verified 11/24/22 13:15 (unknown) (no (unknown) (unknown) vancomycin (units (unk nown) date) [VANCOMYCIN] Allergy unknown) Unknown Verified 11/24/22 13:15 (unknown) (no (unknown) (unknown) verapamil (units (unkn own) date) [VERAPAMIL] Allergy unknown) Unknown Verified 11/24/22 13:15 (unknown) (no (unknown) (unknown) was receiving an (units (unknown) date) injection during her unknown) HIDA scan and developed nausea sensation (unknown) (no (unknown) (unknown) when she is had (units (unknown) date) anaphylactic unknown) reactions she is received epinephrine either IM or (unknown) (no (unknown) (unknown) zinc sulfate 50 mg (units (unknown) date) zinc (220 mg) 50 mg unknown) PO DAILY 05/26/21 11/16/22 (unknown) (no (unknown) (unknown) zinc sulfate 50 mg (units (unknown) date) zinc (220 mg) tablet unknown) Result panel 179 (unknown) (no (unknown) (unknown) (no value) (units (unk nown) date) unknown) (unknown) (no (unknown) (unknown) #8.5 grams (units (unk nown) date) unknown) (unknown) (no (unknown) (unknown) 0.3 mg IM ONCE (units (unknown) date) unknown) (unknown) (no (unknown) (unknown) 11/24/22 (units (unkno wn) date) unknown) (unknown) (no (unknown) (unknown) 0RF (units (unkno wn) date) unknown) (unknown) (no (unknown) (unknown) 1 - 2 mg PO BID (units (unknown) date) unknown) (unknown) (no (unknown) (unknown) 1 mg PO DAILY (units ( unknown) date) unknown) (unknown) (no (unknown) (unknown) 10 mg PO BEDTIME PRN (uni ts (unknown) date) unknown) (unknown) (no (unknown) (unknown) 100 mg PO BID-TID (units (unknown) date) PRN (Reason: cough) unknown) Qty: 60 0RF (unknown) (no (unknown) (unknown) 100 mg PO DAILY (units (unknown) date) unknown) (unknown) (no (unknown) (unknown) 12:14 11/24/22 (units (unknown) date) unknown) (unknown) (no (unknown) (unknown) 13:19 11/24/22 (units (unknown) date) unknown) (unknown) (no (unknown) (unknown) 13:30 (units (unkno wn) date) unknown) (unknown) (no (unknown) (unknown) 14:00 11/24/22 (units (unknown) date) unknown) (unknown) (no (unknown) (unknown) 14:30 11/24/22 (units (unknown) date) unknown) (unknown) (no (unknown) (unknown) 14:37 11/24/22 (units (unknown) date) unknown) (unknown) (no (unknown) (unknown) 14:37 (units (unkno wn) date) unknown) (unknown) (no (unknown) (unknown) 14:39 04/07/23 (units (unknown) date) unknown) (unknown) (no (unknown) (unknown) 14:39 (units (unkno wn) date) unknown) (unknown) (no (unknown) (unknown) 14:42 11/24/22 (units (unknown) date) unknown) (unknown) (no (unknown) (unknown) 14:43 11/24/22 (units (unknown) date) unknown) (unknown) (no (unknown) (unknown) 14:43 (units (unkno wn) date) unknown) (unknown) (no (unknown) (unknown) 14:45 11/24/22 (units (unknown) date) unknown) (unknown) (no (unknown) (unknown) 14:45 (units (unkno wn) date) unknown) (unknown) (no (unknown) (unknown) 14:48 11/24/22 (units (unknown) date) unknown) (unknown) (no (unknown) (unknown) 14:52 11/24/22 (units (unknown) date) unknown) (unknown) (no (unknown) (unknown) 14:52 (units (unkno wn) date) unknown) (unknown) (no (unknown) (unknown) 14:54 11/24/22 (units (unknown) date) unknown) (unknown) (no (unknown) (unknown) 14:54 (units (unkno wn) date) unknown) (unknown) (no (unknown) (unknown) 14:57 11/24/22 (units (unknown) date) unknown) (unknown) (no (unknown) (unknown) 15 mg PO [facility] (units ( unknown) date) unknown) (unknown) (no (unknown) (unknown) 15:00 11/24/22 (units (unknown) date) unknown) (unknown) (no (unknown) (unknown) 15:00 (units (unkno wn) date) unknown) (unknown) (no (unknown) (unknown) 15:10 11/24/22 (units (unknown) date) unknown) (unknown) (no (unknown) (unknown) 15:10 (units (unkno wn) date) unknown) (unknown) (no (unknown) (unknown) 2 mg PO Q4-6H PRN (units (unknown) date) unknown) (unknown) (no (unknown) (unknown) 2 puff inhalation (units (unknown) date) Q6H PRN (Reason: unknown) shortness of breath or wheezing) Qty: 8.5 (unknown) (no (unknown) (unknown) 20 mg PO BID Qty: 0 (unit s (unknown) date) unknown) (unknown) (no (unknown) (unknown) 200 mg PO BID (units ( unknown) date) unknown) (unknown) (no (unknown) (unknown) 250 mcg PO DAILY (units (unknown) date) unknown) (unknown) (no (unknown) (unknown) 30 mg PO BEDTIME PRN (uni ts (unknown) date) unknown) (unknown) (no (unknown) (unknown) 50 mg PO DAILY Qty: (unit s (unknown) date) 60 0RF unknown) (unknown) (no (unknown) (unknown) 50 mg PO DAILY (units (unknown) date) unknown) (unknown) (no (unknown) (unknown) 500 mL of fluid, O2 (unit s (unknown) date) at 12 liters/minute unknown) for at least 15 minutes, Zofran 8 mg, (unknown) (no (unknown) (unknown) 8 mg PO Q8H PRN (units (unknown) date) (Reason: nausea and unknown) vomiting) 5 Days Qty: 10 0RF (unknown) (no (unknown) (unknown) ABD:bowel sounds (units (unknown) date) normal, soft, unknown) non-tender, no guarding, rebound, rigidity, no (unknown) (no (unknown) (unknown) AT SITE (units (unkno wn) date) unknown) (unknown) (no (unknown) (unknown) Activity (units (unkno wn) date) Restrictions/Addition unknown) al Instructions: (unknown) (no (unknown) (unknown) Admin: 11/24/22 (units (unknown) date) 13:33 Dose: 1,000 unknown) mls/hr (unknown) (no (unknown) (unknown) Age/Sex: 37 / F (units (unknown) date) unknown) (unknown) (no (unknown) (unknown) Allergies (units (unkn own) date) unknown) (unknown) (no (unknown) (unknown) Allergy/AdvReac Type (uni ts (unknown) date) Severity Reaction unknown) Status Date / Time (unknown) (no (unknown) (unknown) Anesthesia (units (unk nown) date) unknown) (unknown) (no (unknown) (unknown) Ankle pain (units (unk nown) date) unknown) (unknown) (no (unknown) (unknown) Anxiety (units (unkno wn) date) unknown) (unknown) (no (unknown) (unknown) Asthma (units (unkno wn) date) unknown) (unknown) (no (unknown) (unknown) Blood Pressure (units (unknown) date) 123/79 133/95 H unknown) (unknown) (no (unknown) (unknown) Blood Pressure (units (unknown) date) 128/89 125/85 unknown) (unknown) (no (unknown) (unknown) Blood Pressure (units (unknown) date) 131/84 unknown) (unknown) (no (unknown) (unknown) Blood Pressure (units (unknown) date) 131/88 unknown) (unknown) (no (unknown) (unknown) Blood Pressure (units (unknown) date) 132/81 unknown) (unknown) (no (unknown) (unknown) Blood Pressure (units (unknown) date) 134/80 131/76 unknown) (unknown) (no (unknown) (unknown) Blood Pressure (units (unknown) date) 134/83 130/77 unknown) (unknown) (no (unknown) (unknown) Blood Pressure (units (unknown) date) 138/88 11/24/22 12:14 unknown) (unknown) (no (unknown) (unknown) Blood Pressure (units (unknown) date) 138/88 unknown) (unknown) (no (unknown) (unknown) Blood Pressure (units (unknown) date) unknown) (unknown) (no (unknown) (unknown) Cardiac arrhythmia (units (unknown) date) unknown) (unknown) (no (unknown) (unknown) Cervical cyst (units ( unknown) date) unknown) (unknown) (no (unknown) (unknown) Chicken pox (units (un known) date) unknown) (unknown) (no (unknown) (unknown) Chief complaint: (units (unknown) date) Allergic Reaction unknown) (unknown) (no (unknown) (unknown) Clinical Impression: (uni ts (unknown) date) unknown) (unknown) (no (unknown) (unknown) Course (units (unkno wn) date) unknown) (unknown) (no (unknown) (unknown) : 1985 (units (unknown) date) Acct:[id number] unknown) (unknown) (no (unknown) (unknown) Date of Service: (units (unknown) date) 11/24/22 unknown) (unknown) (no (unknown) (unknown) Departure (units (unkn own) date) unknown) (unknown) (no (unknown) (unknown) Depression (units (unk nown) date) unknown) (unknown) (no (unknown) (unknown) Discharge Plan (units (unknown) date) unknown) (unknown) (no (unknown) (unknown) Discontinued (units (u nknown) date) Medications unknown) (unknown) (no (unknown) (unknown) Documented By: BS (units (unknown) date) unknown) (unknown) (no (unknown) (unknown) Documented By: KB (units (unknown) date) unknown) (unknown) (no (unknown) (unknown) Documented By: RL (units (unknown) date) unknown) (unknown) (no (unknown) (unknown) ER Physician: (units ( unknown) date) Marilyn Leigh D.O. unknown) (unknown) (no (unknown) (unknown) Emergency Report (units (unknown) date) unknown) (unknown) (no (unknown) (unknown) Endometriosis (units ( unknown) date) unknown) (unknown) (no (unknown) (unknown) Exam Narrative: (units (unknown) date) unknown) (unknown) (no (unknown) (unknown) Exam (units (unkno wn) date) unknown) (unknown) (no (unknown) (unknown) Family History (units (unknown) date) (Reviewed 11/24/22 @ unknown) 12:59 by Marilyn Leigh DO) (unknown) (no (unknown) (unknown) Family/Other Mental (unit s (unknown) date) health problem unknown) (unknown) (no (unknown) (unknown) Fibromyalgia (units (u nknown) date) unknown) (unknown) (no (unknown) (unknown) Foot pain (units (unkn own) date) unknown) (unknown) (no (unknown) (unknown) Fractures (units (unkn own) date) unknown) (unknown) (no (unknown) (unknown) GEN: well nourished, (uni ts (unknown) date) well appearing unknown) female, alert and oriented x 3, patient (unknown) (no (unknown) (unknown) GI bleeding (units (un known) date) unknown) (unknown) (no (unknown) (unknown) Gastric ulcer (units ( unknown) date) unknown) (unknown) (no (unknown) (unknown) General (units (unkno wn) date) unknown) (unknown) (no (unknown) (unknown) Grandfather (uni ts (unknown) date) Stroke unknown) (unknown) (no (unknown) (unknown) Grandmother Breast (units (unknown) date) cancer unknown) (unknown) (no (unknown) (unknown) Grandmother (uni ts (unknown) date) Stroke unknown) (unknown) (no (unknown) (unknown) HEART: Regular rate (unit s (unknown) date) and rhythm without unknown) murmur, clicks, rubs. (unknown) (no (unknown) (unknown) HEENT: Atraumatic, (units (unknown) date) pupils are equal unknown) round reactive to light, extraocular (unknown) (no (unknown) (unknown) HPI - Allergic (units (unknown) date) Reaction unknown) (unknown) (no (unknown) (unknown) HPI narrative: (units (unknown) date) unknown) (unknown) (no (unknown) (unknown) Headache (units (unkno wn) date) unknown) (unknown) (no (unknown) (unknown) Hearing loss (units (u nknown) date) unknown) (unknown) (no (unknown) (unknown) Hemorrhoid (units (unk nown) date) unknown) (unknown) (no (unknown) (unknown) History of Present (units (unknown) date) Illness unknown) (unknown) (no (unknown) (unknown) History of [...] hernia repair unknown) (unknown) (no (unknown) (unknown) Home Medications (units (unknown) date) unknown) (unknown) (no (unknown) (unknown) Laurent Lucas MD (uni ts (unknown) date) [Primary Care unknown) Provider] (unknown) (no (unknown) (unknown) Hydromorphone HCl (units (unknown) date) (Hydromorphone 1 Mg unknown) Inj) 1 mg IV NOW ONE (unknown) (no (unknown) (unknown) I did speak with new (uni ts (unknown) date) command DI, she unknown) received the medication that makes the (unknown) (no (unknown) (unknown) I hope you continue (unit s (unknown) date) to feel improved. unknown) (unknown) (no (unknown) (unknown) I would continue (units (unknown) date) your home medications unknown) as prescribed. (unknown) (no (unknown) (unknown) Initial Vital Signs (unit s (unknown) date) unknown) (unknown) (no (unknown) (unknown) Initial Vital Signs: (uni ts (unknown) date) unknown) (unknown) (no (unknown) (unknown) Interstitial (units (u nknown) date) cystitis unknown) (unknown) (no (unknown) (unknown) [facility] [address] (uni ts (unknown) date) [address] [place] [address] (unknown) (no (unknown) (unknown) It is unclear if you (unit s (unknown) date) had a allergic unknown) reaction today or a normal response from the (unknown) (no (unknown) (unknown) Ketorolac (units (unkn own) date) Tromethamine unknown) (Ketorolac 30 Mg/Ml Vial) 30 mg IV NOW ONE (unknown) (no (unknown) (unknown) Kidney stones (units ( unknown) date) unknown) (unknown) (no (unknown) (unknown) LUNGS:Lungs clear to (uni ts (unknown) date) auscultation, no unknown) wheezes, rales, crackles, chest moves (unknown) (no (unknown) (unknown) Last Admin: 11/24/22 (uni ts (unknown) date) 13:01 Dose: 4 mg unknown) (unknown) (no (unknown) (unknown) Last Admin: 11/24/22 (uni ts (unknown) date) 13:33 Dose: 4 mg unknown) (unknown) (no (unknown) (unknown) Last Admin: 11/24/22 (uni ts (unknown) date) 14:30 Dose: 30 mg unknown) (unknown) (no (unknown) (unknown) Last Admin: 11/24/22 (uni ts (unknown) date) 14:31 Dose: 0.5 mg unknown) (unknown) (no (unknown) (unknown) Last Admin: 11/24/22 (uni ts (unknown) date) 14:31 Dose: 1 mg unknown) (unknown) (no (unknown) (unknown) Last Infusion: (units (unknown) date) 11/24/22 15:08 Dose: unknown) 0 mls/hr (unknown) (no (unknown) (unknown) Lorazepam (Lorazepam (uni ts (unknown) date) 2 Mg/Ml Inj) 0.5 mg unknown) IV NOW ONE (unknown) (no (unknown) (unknown) [id number] (units (unk nown) date) unknown) (unknown) (no (unknown) (unknown) MDM - Allergic (units (unknown) date) Reaction unknown) (unknown) (no (unknown) (unknown) MDM Narrative (units ( unknown) date) unknown) (unknown) (no (unknown) (unknown) MSCL: Non-tender, no (uni ts (unknown) date) muscle atrophy, unknown) muscles strength 5/5 upper and lower (unknown) (no (unknown) (unknown) Medical History (units (unknown) date) (Reviewed 11/24/22 @ unknown) 12:59 by Marilyn Leigh DO) (unknown) (no (unknown) (unknown) Medical decision (units (unknown) date) making narrative: unknown) (unknown) (no (unknown) (unknown) Medication (units (unk nown) date) Instructions Recorded unknown) Confirmed (unknown) (no (unknown) (unknown) Medication (units (unk nown) date) Instructions Recorded unknown) (unknown) (no (unknown) (unknown) Mental health (units ( unknown) date) problem unknown) (unknown) (no (unknown) (unknown) Migraine (units (unkno wn) date) unknown) (unknown) (no (unknown) (unknown) Migraines (units (unkn own) date) unknown) (unknown) (no (unknown) (unknown) Mode of arrival: (units (unknown) date) Wheelchair unknown) (unknown) (no (unknown) (unknown) Mother (units (unknown) date) Cancer unknown) (unknown) (no (unknown) (unknown) NEURO:CN 2-12 (units ( unknown) date) intact, sensation unknown) normal (unknown) (no (unknown) (unknown) Narrative (units (unkn own) date) unknown) (unknown) (no (unknown) (unknown) New (units (unkno wn) date) unknown) (unknown) (no (unknown) (unknown) No Action (units (unkn own) date) unknown) (unknown) (no (unknown) (unknown) Ondansetron HCl (units (unknown) date) (Ondansetron 4 Mg/2 unknown) Ml Inj) 4 mg IV NOW ONE (unknown) (no (unknown) (unknown) Ordered: (units (unkno wn) date) unknown) (unknown) (no (unknown) (unknown) Orders (units (unkno wn) date) unknown) (unknown) (no (unknown) (unknown) Ovarian cyst (units (u nknown) date) unknown) (unknown) (no (unknown) (unknown) Oxygen Delivery (units (unknown) date) Method Room Air unknown) 11/24/22 12:14 (unknown) (no (unknown) (unknown) Oxygen Delivery (units (unknown) date) Method Room Air unknown) (unknown) (no (unknown) (unknown) Oxygen Delivery (units (unknown) date) Method unknown) (unknown) (no (unknown) (unknown) PLASTIC MEDICAL TAPE (uni ts (unknown) date) Allergy Mild BLISTERS unknown) Uncoded 11/16/22 11:38 (unknown) (no (unknown) (unknown) PTSD (post-traumatic (uni ts (unknown) date) stress disorder) unknown) (unknown) (no (unknown) (unknown) Painful menstrual (units (unknown) date) periods unknown) (unknown) (no (unknown) (unknown) Patient Disposition: (uni ts (unknown) date) Home unknown) (unknown) (no (unknown) (unknown) Patient History (units (unknown) date) unknown) (unknown) (no (unknown) (unknown) Patient was seen (units (unknown) date) evaluated, she is unknown) hoarse she has nausea she felt like maybe her (unknown) (no (unknown) (unknown) Patient: (units (unkno wn) date) Bibi Arreola W unknown) MR#: (unknown) (no (unknown) (unknown) Please return if you (uni ts (unknown) date) develop fevers, unknown) atypical migraine symptoms, new chest pain (unknown) (no (unknown) (unknown) Prescriptions: (units (unknown) date) unknown) (unknown) (no (unknown) (unknown) Previous Rx's (units ( unknown) date) unknown) (unknown) (no (unknown) (unknown) Pulse Oximetry 100 (units (unknown) date) 11/24/22 12:14 unknown) (unknown) (no (unknown) (unknown) Pulse Oximetry 100 (units (unknown) date) 100 unknown) (unknown) (no (unknown) (unknown) Pulse Oximetry 100 (units (unknown) date) 98 97 unknown) (unknown) (no (unknown) (unknown) Pulse Oximetry 100 (units (unknown) date) unknown) (unknown) (no (unknown) (unknown) Pulse Oximetry 98 (units (unknown) date) 100 100 unknown) (unknown) (no (unknown) (unknown) Pulse Rate 60 60 (units (unknown) date) unknown) (unknown) (no (unknown) (unknown) Pulse Rate 60 61 (units (unknown) date) unknown) (unknown) (no (unknown) (unknown) Pulse Rate 60 (units ( unknown) date) unknown) (unknown) (no (unknown) (unknown) Pulse Rate 61 (units ( unknown) date) unknown) (unknown) (no (unknown) (unknown) Pulse Rate 63 (units ( unknown) date) unknown) (unknown) (no (unknown) (unknown) Pulse Rate 67 64 (units (unknown) date) unknown) (unknown) (no (unknown) (unknown) Pulse Rate 72 (units ( unknown) date) unknown) (unknown) (no (unknown) (unknown) Pulse Rate 77 67 70 (unit s (unknown) date) unknown) (unknown) (no (unknown) (unknown) Pulse Rate 89 (units ( unknown) date) 11/24/22 12:14 unknown) (unknown) (no (unknown) (unknown) Pulse Rate 89 87 79 (unit s (unknown) date) unknown) (unknown) (no (unknown) (unknown) ROS Unobtainable: All (uni ts (unknown) date) systems reviewed + unknown) are unremarkable except as noted in HPI (unknown) (no (unknown) (unknown) Recheck patient (units (unknown) date) states airway is unknown) feeling good but still having migraine (unknown) (no (unknown) (unknown) Referrals: (units (unk nown) date) unknown) (unknown) (no (unknown) (unknown) Related Data (units (u nknown) date) unknown) (unknown) (no (unknown) (unknown) Respiratory Rate 22 (unit s (unknown) date) 11/24/22 12:14 unknown) (unknown) (no (unknown) (unknown) Respiratory Rate 22 (unit s (unknown) date) unknown) (unknown) (no (unknown) (unknown) Respiratory Rate (units (unknown) date) unknown) (unknown) (no (unknown) (unknown) Review of Systems (units (unknown) date) unknown) (unknown) (no (unknown) (unknown) Ruptured tympanic (units (unknown) date) membrane unknown) (unknown) (no (unknown) (unknown) Rx Instructions: (units (unknown) date) unknown) (unknown) (no (unknown) (unknown) SKIN: No rash, no (units (unknown) date) erythema or other unknown) skin changes. (unknown) (no (unknown) (unknown) Shoulder pain (units ( unknown) date) (2020) unknown) (unknown) (no (unknown) (unknown) Signed By: (units (unk nown) date) unknown) (unknown) (no (unknown) (unknown) Smoking Status: (units (unknown) date) Former smoker unknown) (unknown) (no (unknown) (unknown) Social History (units (unknown) date) (Reviewed 11/24/22 @ unknown) 12:59 by Marilyn Leigh DO) (unknown) (no (unknown) (unknown) Sodium Chloride (units (unknown) date) (Normal Saline 0.9%) unknown) 500 mls @ 1,000 mls/hr IV BOLUS ONE (unknown) (no (unknown) (unknown) Source: patient (units (unknown) date) unknown) (unknown) (no (unknown) (unknown) Stand Alone Forms: (units (unknown) date) Patient Portal/API unknown) (unknown) (no (unknown) (unknown) Stated complaint: (units (unknown) date) nausea head pain unknown) physician ref sent from labs (unknown) (no (unknown) (unknown) Stop: 11/24/22 12:57 (uni ts (unknown) date) unknown) (unknown) (no (unknown) (unknown) Stop: 11/24/22 13:27 (uni ts (unknown) date) unknown) (unknown) (no (unknown) (unknown) Stop: 11/24/22 13:55 (uni ts (unknown) date) unknown) (unknown) (no (unknown) (unknown) Stop: 11/24/22 14:21 (uni ts (unknown) date) unknown) (unknown) (no (unknown) (unknown) Stroke (units (unkno wn) date) unknown) (unknown) (no (unknown) (unknown) Surgical History (units (unknown) date) (Reviewed 11/24/22 @ unknown) 12:59 by Marilyn Leigh DO) (unknown) (no (unknown) (unknown) TIA (transient (units (unknown) date) ischemic attack) unknown) (unknown) (no (unknown) (unknown) Temperature 98.1 F (units (unknown) date) 11/24/22 12:14 unknown) (unknown) (no (unknown) (unknown) Temperature 98.1 F (units (unknown) date) unknown) (unknown) (no (unknown) (unknown) Temperature (units (un known) date) unknown) (unknown) (no (unknown) (unknown) This is 37-year-old (unit s (unknown) date) female with 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 (unknown) (no (unknown) (unknown) Time Seen by (units (u nknown) date) Provider: 11/24/22 unknown) 12:54 (unknown) (no (unknown) (unknown) Tinnitus (units (unkno wn) date) unknown) (unknown) (no (unknown) (unknown) Vertigo (units (unkno wn) date) unknown) (unknown) (no (unknown) (unknown) Vital Signs - 8 hr (units (unknown) date) unknown) (unknown) (no (unknown) (unknown) Vital Signs (units (un known) date) unknown) (unknown) (no (unknown) (unknown) Vital signs: (units (u nknown) date) unknown) (unknown) (no (unknown) (unknown) [DIHYDROERGOCRISTINE (uni ts (unknown) date) ] unknown) (unknown) (no (unknown) (unknown) [DIHYDROERGOTAMINE] (unit s (unknown) date) unknown) (unknown) (no (unknown) (unknown) [DIPHENHYDRAMINE] (units (unknown) date) unknown) (unknown) (no (unknown) (unknown) [From COMPAZINE] (units (unknown) date) unknown) (unknown) (no (unknown) (unknown) [METOCLOPRAMIDE] (units (unknown) date) unknown) (unknown) (no (unknown) (unknown) [PRASTERONE (DHEA)] (unit s (unknown) date) unknown) (unknown) (no (unknown) (unknown) a migraine last (units (unknown) date) night it had improved unknown) but seemed to return when this was (unknown) (no (unknown) (unknown) acetaminophen (units ( unknown) date) [ACETAMINOPHEN] unknown) Allergy Unknown Verified 11/24/22 13:15 (unknown) (no (unknown) (unknown) adhesive [ADHESIVE] (unit s (unknown) date) Allergy Unknown unknown) Verified 11/24/22 13:15 (unknown) (no (unknown) (unknown) aerosol inhaler (units (unknown) date) shortness of breath unknown) or wheezing (unknown) (no (unknown) (unknown) albuterol sulfate 90 (uni ts (unknown) date) mcg/actuation 2 puff unknown) inhalation Q6H PRN 10/10/22 (unknown) (no (unknown) (unknown) albuterol sulfate 90 (uni ts (unknown) date) mcg/actuation HFA unknown) aerosol inhaler (unknown) (no (unknown) (unknown) alcohol intake (units (unknown) date) frequency: 0-2 drinks unknown) per day (unknown) (no (unknown) (unknown) also states she (units (unknown) date) feels really anxious unknown) that she might be having an allergic (unknown) (no (unknown) (unknown) amitriptyline (units ( unknown) date) [AMITRIPTYLINE] unknown) Allergy Unknown Verified 11/24/22 13:15 (unknown) (no (unknown) (unknown) and below (units (unkn own) date) unknown) (unknown) (no (unknown) (unknown) and see if this (units (unknown) date) helps resolve her unknown) symptoms. Patient will require close (unknown) (no (unknown) (unknown) appears to be in (units (unknown) date) [id number] unknown) distress. (unknown) (no (unknown) (unknown) as a single dose (units (unknown) date) unknown) (unknown) (no (unknown) (unknown) aspirin [ASPIRIN] (units (unknown) date) Allergy Unknown unknown) Verified 11/24/22 13:15 (unknown) (no (unknown) (unknown) benzocaine (units (unk nown) date) [BENZOCAINE] Allergy unknown) Unknown Verified 11/24/22 13:15 (unknown) (no (unknown) (unknown) benzonatate 100 mg (units (unknown) date) capsule 100 mg PO unknown) BID-TID PRN cough #60 10/12/22 (unknown) (no (unknown) (unknown) benzonatate 100 mg (units (unknown) date) capsule unknown) (unknown) (no (unknown) (unknown) biotin 1 mg capsule (unit s (unknown) date) 1 mg PO DAILY unknown) 05/26/21 11/16/22 (unknown) (no (unknown) (unknown) biotin 1 mg capsule (unit s (unknown) date) unknown) (unknown) (no (unknown) (unknown) butamben [From (units (unknown) date) CETACAINE] Allergy unknown) Unknown Verified 11/24/22 13:15 (unknown) (no (unknown) (unknown) can not take Benadryl (uni ts (unknown) date) or steroids as they unknown) will induce steroid psychosis and that (unknown) (no (unknown) (unknown) caps (units (unkno wn) date) unknown) (unknown) (no (unknown) (unknown) changes. She states (unit s (unknown) date) she is very nauseated unknown) but not actively vomiting. No (unknown) (no (unknown) (unknown) cholecalciferol (units (unknown) date) (vitamin D3) 250 250 unknown) mcg PO DAILY 05/26/21 11/16/22 (unknown) (no (unknown) (unknown) cholecalciferol (units (unknown) date) (vitamin D3) 250 mcg unknown) (10,000 unit) capsule (unknown) (no (unknown) (unknown) clonazepam 1 mg (units (unknown) date) tablet 1 - 2 mg PO unknown) BID 05/26/21 11/16/22 (unknown) (no (unknown) (unknown) clonazepam 1 mg (units (unknown) date) tablet unknown) (unknown) (no (unknown) (unknown) conjunctival pallor. (uni ts (unknown) date) Throat is clear unknown) without any exudates, erythema, tonsillar (unknown) (no (unknown) (unknown) continuously through (uni ts (unknown) date) a line and is then unknown) monitored once it stopped. Patient (unknown) (no (unknown) (unknown) dexamethasone (units ( unknown) date) [DEXAMETHASONE] unknown) Allergy Unknown Verified 11/24/22 13:15 (unknown) (no (unknown) (unknown) dextroamphetamine-am (uni ts (unknown) date) phetamine 10 20 mg PO unknown) BID #0 tabs 05/26/21 11/16/22 (unknown) (no (unknown) (unknown) dextroamphetamine-am (uni ts (unknown) date) phetamine [Adderall] unknown) 10 mg tablet (unknown) (no (unknown) (unknown) diarrhea. She states (uni ts (unknown) date) no chest pain, she unknown) felt a little tight in her chest but (unknown) (no (unknown) (unknown) dicloxacillin (units ( unknown) date) [DICLOXACILLIN] unknown) Allergy Unknown Verified 11/24/22 13:15 (unknown) (no (unknown) (unknown) dihydroergocristine (unit s (unknown) date) Allergy Unknown unknown) Verified 11/24/22 13:15 (unknown) (no (unknown) (unknown) dihydroergotamine (units (unknown) date) Allergy Unknown unknown) Verified 11/24/22 13:15 (unknown) (no (unknown) (unknown) diphenhydramine (units (unknown) date) Allergy Unknown unknown) Verified 11/24/22 13:15 (unknown) (no (unknown) (unknown) enlargement or (units (unknown) date) uvular deviation, no unknown) oropharyngeal swelling, patient is resting (unknown) (no (unknown) (unknown) epinephrine 0.3 (units (unknown) date) mg/0.3 mL 0.3 mg IM unknown) ONCE 05/26/21 11/16/22 (unknown) (no (unknown) (unknown) epinephrine 0.3 (units (unknown) date) mg/0.3 mL unknown) auto-injector (unknown) (no (unknown) (unknown) epinephrine. (units (u nknown) date) Discussed giving IM unknown) epinephrine and she would like to try Zofran (unknown) (no (unknown) (unknown) extremities, full (units (unknown) date) range of motion, unknown) normal gait (unknown) (no (unknown) (unknown) for refill. Sent to (unit s (unknown) date) [facility] in [place] unknown) [place]. (unknown) (no (unknown) (unknown) for regimen, she has (uni ts (unknown) date) received a portion unknown) with fluids and Zofran already. (unknown) (no (unknown) (unknown) from. She has (units ( unknown) date) persistent headache unknown) symptoms and discussed giving her typical (unknown) (no (unknown) (unknown) frovatriptan (units (u nknown) date) [FROVATRIPTAN] unknown) Allergy Unknown Verified 11/24/22 13:15 (unknown) (no (unknown) (unknown) gallbladder (units (un known) date) contract, the unknown) half-life that medication is 1.3 minutes. (unknown) (no (unknown) (unknown) had some nausea but (unit s (unknown) date) no vomiting. unknown) Discussed with patient she states she can not (unknown) (no (unknown) (unknown) have steroids or (units (unknown) date) Benadryl for allergic unknown) reaction she can only receive (unknown) (no (unknown) (unknown) headache which she (units (unknown) date) states is atypical. unknown) She is neurologically intact, she has (unknown) (no (unknown) (unknown) her typical migraine (uni ts (unknown) date) cocktail which is unknown) where her 8 mg of Zofran and fluids came (unknown) (no (unknown) (unknown) hydromorphone 2 mg (units (unknown) date) tablet 2 mg PO Q4-6H unknown) PRN 11/16/22 11/16/22 (unknown) (no (unknown) (unknown) hydromorphone 2 mg (units (unknown) date) tablet unknown) (unknown) (no (unknown) (unknown) hydroxyzine (units (un known) date) [HYDROXYZINE] Allergy unknown) Unknown Verified 11/24/22 13:15 (unknown) (no (unknown) (unknown) ibuprofen (units (unkn own) date) [IBUPROFEN] Allergy unknown) Unknown Verified 11/24/22 13:15 (unknown) (no (unknown) (unknown) in chair she is (units (unknown) date) speaking in full unknown) sentences, she is some slight hoarseness, no (unknown) (no (unknown) (unknown) injection for her (units (unknown) date) HIDA scan when her unknown) symptoms started. Patient also developed (unknown) (no (unknown) (unknown) injection, (units (unk nown) date) auto-injector unknown) (unknown) (no (unknown) (unknown) latex [LATEX] (units ( unknown) date) Allergy Unknown unknown) Verified 11/24/22 13:15 (unknown) (no (unknown) (unknown) little bit of a (units (unknown) date) headache. She has unknown) multiple medication allergies and received an (unknown) (no (unknown) (unknown) lorazepam 0.5mg, (units (unknown) date) ketorolac 30 mg and unknown) Dilaudid 1 mg. Patient is feeling impr (unknown) (no (unknown) (unknown) lower extremity, (units (unknown) date) insomnia, anxiety and unknown) multiple medication allergies. Patient (unknown) (no (unknown) (unknown) magnesium glycinate (unit s (unknown) date) 100 mg tablet 100 mg unknown) PO DAILY 05/26/21 11/16/22 (unknown) (no (unknown) (unknown) magnesium glycinate (unit s (unknown) date) 100 mg tablet unknown) (unknown) (no (unknown) (unknown) masses noted, no (units (unknown) date) hepatosplenomegaly unknown) (unknown) (no (unknown) (unknown) mcg (10,000 unit) (units (unknown) date) capsule unknown) (unknown) (no (unknown) (unknown) medication that you (units (unknown) date) are given to make unknown) your gallbladder contract during your HIDA (unknown) (no (unknown) (unknown) medication. Patient (unit s (unknown) date) has a letter from unknown) [place] on official letter head (unknown) (no (unknown) (unknown) melatonin 10 mg (units (unknown) date) capsule 10 mg PO unknown) BEDTIME PRN 05/26/21 11/16/22 (unknown) (no (unknown) (unknown) melatonin 10 mg (units (unknown) date) capsule unknown) (unknown) (no (unknown) (unknown) meloxicam 7.5 mg (units (unknown) date) tablet (Mobic) 15 mg unknown) PO [facility] 05/26/21 11/16/22 (unknown) (no (unknown) (unknown) meloxicam [Mobic] (units (unknown) date) 7.5 mg tablet unknown) (unknown) (no (unknown) (unknown) metoclopramide (units (unknown) date) Allergy Unknown unknown) Verified 11/24/22 13:15 (unknown) (no (unknown) (unknown) mg tablet (Adderall) (uni ts (unknown) date) unknown) (unknown) (no (unknown) (unknown) monitoring and if (units (unknown) date) any worsening she unknown) needs to receive IM epinephrine. (unknown) (no (unknown) (unknown) movements are (units ( unknown) date) intact, nares are unknown) clear, TMs are clear with no fluid, there is no (unknown) (no (unknown) (unknown) nortriptyline (units ( unknown) date) [NORTRIPTYLINE] unknown) Allergy Unknown Verified 11/24/22 13:15 (unknown) (no (unknown) (unknown) occurring. Patient (units (unknown) date) denies any fevers or unknown) chills. (unknown) (no (unknown) (unknown) ondansetron HCl 8 mg (uni ts (unknown) date) tablet 8 mg PO Q8H unknown) PRN nausea and 11/24/22 (unknown) (no (unknown) (unknown) ondansetron HCl 8 mg (uni ts (unknown) date) tablet unknown) (unknown) (no (unknown) (unknown) or shortness of (units (unknown) date) breath, persistent unknown) vomiting, new or worsening abdominal pain or (unknown) (no (unknown) (unknown) other new or (units (u nknown) date) concerning changes. unknown) (unknown) (no (unknown) (unknown) antonia. She is not (units (unknown) date) having any persistent unknown) changes terms of airway and I suspect (unknown) (no (unknown) (unknown) prasterone (DHEA) (units (unknown) date) Allergy Unknown unknown) Verified 11/24/22 13:15 (unknown) (no (unknown) (unknown) prednisone (units (unk nown) date) [PREDNISONE] Allergy unknown) Unknown Verified 11/24/22 13:15 (unknown) (no (unknown) (unknown) pregabalin 100 mg (units (unknown) date) capsule (Lyrica) 200 unknown) mg PO BID 05/26/21 11/16/22 (unknown) (no (unknown) (unknown) pregabalin [Lyrica] (unit s (unknown) date) 100 mg capsule unknown) (unknown) (no (unknown) (unknown) prochlorperazine (units (unknown) date) Allergy Unknown unknown) Verified 11/24/22 13:15 (unknown) (no (unknown) (unknown) promethazine [From (units (unknown) date) PHENERGAN] Allergy unknown) Unknown Verified 11/24/22 13:15 (unknown) (no (unknown) (unknown) reaction as well. (units (unknown) date) She states multiple unknown) allergies to medications she states she (unknown) (no (unknown) (unknown) really anxious and (units (unknown) date) that maybe her throat unknown) was tight. She states no rash or skin (unknown) (no (unknown) (unknown) rizatriptan (units (un known) date) [RIZATRIPTAN] Allergy unknown) Unknown Verified 11/24/22 13:15 (unknown) (no (unknown) (unknown) scan. (units (unkno wn) date) unknown) (unknown) (no (unknown) (unknown) sertraline 50 mg (units (unknown) date) tablet (Zoloft) 50 mg unknown) PO DAILY #60 tabs 11/16/22 (unknown) (no (unknown) (unknown) sertraline [Zoloft] (unit s (unknown) date) 50 mg tablet unknown) (unknown) (no (unknown) (unknown) she had more of a (units (unknown) date) response or adverse unknown) reaction and not an allergic reaction to (unknown) (no (unknown) (unknown) she typically takes 8 (uni ts (unknown) date) mg tablets and scores unknown) them in half until she can follow-up (unknown) (no (unknown) (unknown) states she did also (unit s (unknown) date) develop headache, she unknown) states she does have migraine she had (unknown) (no (unknown) (unknown) stridor (units (unkno wn) date) unknown) (unknown) (no (unknown) (unknown) sumatriptan (units (un known) date) [SUMATRIPTAN] Allergy unknown) Unknown Verified 11/24/22 13:15 (unknown) (no (unknown) (unknown) symmetrically (units ( unknown) date) unknown) (unknown) (no (unknown) (unknown) symptoms. Patient (units (unknown) date) has a letter from her unknown) provider at [facility] with (unknown) (no (unknown) (unknown) tablet (units (unkno wn) date) unknown) (unknown) (no (unknown) (unknown) temazepam 30 mg (units (unknown) date) capsule 30 mg PO unknown) BEDTIME PRN 05/26/21 11/16/22 (unknown) (no (unknown) (unknown) temazepam 30 mg (units (unknown) date) capsule unknown) (unknown) (no (unknown) (unknown) tetracaine (units (unk nown) date) [TETRACAINE] Allergy unknown) Unknown Verified 11/24/22 13:15 (unknown) (no (unknown) (unknown) that she was going (units (unknown) date) to vomit but did not unknown) actually vomit and states she felt (unknown) (no (unknown) (unknown) the HIDA scan. (units (unknown) date) Patient did ask if unknown) she can have a short-term refill for Zofran (unknown) (no (unknown) (unknown) throat was clear but (uni ts (unknown) date) she also states she unknown) might just be anxious. She also has a (unknown) (no (unknown) (unknown) topiramate [From (units (unknown) date) TOPAMAX] Allergy unknown) Unknown Verified 11/24/22 13:15 (unknown) (no (unknown) (unknown) valproic acid (units ( unknown) date) [VALPROIC ACID] unknown) Allergy Unknown Verified 11/24/22 13:15 (unknown) (no (unknown) (unknown) vancomycin (units (unk nown) date) [VANCOMYCIN] Allergy unknown) Unknown Verified 11/24/22 13:15 (unknown) (no (unknown) (unknown) verapamil (units (unkn own) date) [VERAPAMIL] Allergy unknown) Unknown Verified 11/24/22 13:15 (unknown) (no (unknown) (unknown) vomiting 5 days #10 (unit s (unknown) date) tabs unknown) (unknown) (no (unknown) (unknown) was receiving an (units (unknown) date) injection during her unknown) HIDA scan and developed nausea sensation (unknown) (no (unknown) (unknown) when she is had (units (unknown) date) anaphylactic unknown) reactions she is received epinephrine either IM or (unknown) (no (unknown) (unknown) zinc sulfate 50 mg (units (unknown) date) zinc (220 mg) 50 mg unknown) PO DAILY 05/26/21 11/16/22 (unknown) (no (unknown) (unknown) zinc sulfate 50 mg (units (unknown) date) zinc (220 mg) tablet unknown) Result panel 180 (unknown) (no (unknown) (unknown) (no value) (units (unk nown) date) unknown) (unknown) (no (unknown) (unknown) #8.5 grams (units (unk nown) date) unknown) (unknown) (no (unknown) (unknown) <Electronically (units (unknown) date) signed by Marilyn Cueva unknown) Karlie LeighO.> (unknown) (no (unknown) (unknown) 0.3 mg IM ONCE (units (unknown) date) unknown) (unknown) (no (unknown) (unknown) 11/24/22 1840 (units ( unknown) date) unknown) (unknown) (no (unknown) (unknown) 11/24/22 (units (unkno wn) date) unknown) (unknown) (no (unknown) (unknown) 0RF (units (unkno wn) date) unknown) (unknown) (no (unknown) (unknown) 1 - 2 mg PO BID (units (unknown) date) unknown) (unknown) (no (unknown) (unknown) 1 mg PO DAILY (units ( unknown) date) unknown) (unknown) (no (unknown) (unknown) 10 mg PO BEDTIME PRN (uni ts (unknown) date) unknown) (unknown) (no (unknown) (unknown) 100 mg PO BID-TID (units (unknown) date) PRN (Reason: cough) unknown) Qty: 60 0RF (unknown) (no (unknown) (unknown) 100 mg PO DAILY (units (unknown) date) unknown) (unknown) (no (unknown) (unknown) 12:14 11/24/22 (units (unknown) date) unknown) (unknown) (no (unknown) (unknown) 13:19 11/24/22 (units (unknown) date) unknown) (unknown) (no (unknown) (unknown) 13:30 (units (unkno wn) date) unknown) (unknown) (no (unknown) (unknown) 14:00 11/24/22 (units (unknown) date) unknown) (unknown) (no (unknown) (unknown) 14:30 11/24/22 (units (unknown) date) unknown) (unknown) (no (unknown) (unknown) 14:37 11/24/22 (units (unknown) date) unknown) (unknown) (no (unknown) (unknown) 14:37 (units (unkno wn) date) unknown) (unknown) (no (unknown) (unknown) 14:39 11/24/22 (units (unknown) date) unknown) (unknown) (no (unknown) (unknown) 14:39 (units (unkno wn) date) unknown) (unknown) (no (unknown) (unknown) 14:42 11/24/22 (units (unknown) date) unknown) (unknown) (no (unknown) (unknown) 14:43 11/24/22 (units (unknown) date) unknown) (unknown) (no (unknown) (unknown) 14:43 (units (unkno wn) date) unknown) (unknown) (no (unknown) (unknown) 14:45 11/24/22 (units (unknown) date) unknown) (unknown) (no (unknown) (unknown) 14:45 (units (unkno wn) date) unknown) (unknown) (no (unknown) (unknown) 14:48 11/24/22 (units (unknown) date) unknown) (unknown) (no (unknown) (unknown) 14:52 11/24/22 (units (unknown) date) unknown) (unknown) (no (unknown) (unknown) 14:52 (units (unkno wn) date) unknown) (unknown) (no (unknown) (unknown) 14:54 11/24/22 (units (unknown) date) unknown) (unknown) (no (unknown) (unknown) 14:54 (units (unkno wn) date) unknown) (unknown) (no (unknown) (unknown) 14:57 11/24/22 (units (unknown) date) unknown) (unknown) (no (unknown) (unknown) 15 mg PO [facility] (units ( unknown) date) unknown) (unknown) (no (unknown) (unknown) 15:00 11/24/22 (units (unknown) date) unknown) (unknown) (no (unknown) (unknown) 15:00 (units (unkno wn) date) unknown) (unknown) (no (unknown) (unknown) 15:10 11/24/22 (units (unknown) date) unknown) (unknown) (no (unknown) (unknown) 15:10 (units (unkno wn) date) unknown) (unknown) (no (unknown) (unknown) 15:22 11/24/22 (units (unknown) date) unknown) (unknown) (no (unknown) (unknown) 15:30 (units (unkno wn) date) unknown) (unknown) (no (unknown) (unknown) 2 mg PO Q4-6H PRN (units (unknown) date) unknown) (unknown) (no (unknown) (unknown) 2 puff inhalation (units (unknown) date) Q6H PRN (Reason: unknown) shortness of breath or wheezing) Qty: 8.5 (unknown) (no (unknown) (unknown) 20 mg PO BID Qty: 0 (unit s (unknown) date) unknown) (unknown) (no (unknown) (unknown) 200 mg PO BID (units ( unknown) date) unknown) (unknown) (no (unknown) (unknown) 250 mcg PO DAILY (units (unknown) date) unknown) (unknown) (no (unknown) (unknown) 30 mg PO BEDTIME PRN (uni ts (unknown) date) unknown) (unknown) (no (unknown) (unknown) 50 mg PO DAILY Qty: (unit s (unknown) date) 60 0RF unknown) (unknown) (no (unknown) (unknown) 50 mg PO DAILY (units (unknown) date) unknown) (unknown) (no (unknown) (unknown) 500 mL of fluid, O2 (unit s (unknown) date) at 12 liters/minute unknown) for at least 15 minutes, Zofran 8 mg, (unknown) (no (unknown) (unknown) 8 mg PO Q8H PRN (units (unknown) date) (Reason: nausea and unknown) vomiting) 5 Days Qty: 10 0RF (unknown) (no (unknown) (unknown) ABD:bowel sounds (units (unknown) date) normal, soft, unknown) non-tender, no guarding, rebound, rigidity, no (unknown) (no (unknown) (unknown) AT SITE (units (unkno wn) date) unknown) (unknown) (no (unknown) (unknown) Activity (units (unkno wn) date) Restrictions/Addition unknown) al Instructions: (unknown) (no (unknown) (unknown) Admin: 11/24/22 (units (unknown) date) 13:33 Dose: 1,000 unknown) mls/hr (unknown) (no (unknown) (unknown) Age/Sex: 37 / F (units (unknown) date) unknown) (unknown) (no (unknown) (unknown) Allergies (units (unkn own) date) unknown) (unknown) (no (unknown) (unknown) Allergy/AdvReac Type (uni ts (unknown) date) Severity Reaction unknown) Status Date / Time (unknown) (no (unknown) (unknown) Anesthesia (units (unk nown) date) unknown) (unknown) (no (unknown) (unknown) Ankle pain (units (unk nown) date) unknown) (unknown) (no (unknown) (unknown) Anxiety (units (unkno wn) date) unknown) (unknown) (no (unknown) (unknown) Asthma (units (unkno wn) date) unknown) (unknown) (no (unknown) (unknown) Blood Pressure (units (unknown) date) 123/79 133/95 H unknown) (unknown) (no (unknown) (unknown) Blood Pressure (units (unknown) date) 128/89 125/85 unknown) (unknown) (no (unknown) (unknown) Blood Pressure (units (unknown) date) 131/84 unknown) (unknown) (no (unknown) (unknown) Blood Pressure (units (unknown) date) 131/88 unknown) (unknown) (no (unknown) (unknown) Blood Pressure (units (unknown) date) 132/81 unknown) (unknown) (no (unknown) (unknown) Blood Pressure (units (unknown) date) 132/85 unknown) (unknown) (no (unknown) (unknown) Blood Pressure (units (unknown) date) 134/80 131/76 unknown) (unknown) (no (unknown) (unknown) Blood Pressure (units (unknown) date) 134/83 130/77 unknown) (unknown) (no (unknown) (unknown) Blood Pressure (units (unknown) date) 138/88 11/24/22 12:14 unknown) (unknown) (no (unknown) (unknown) Blood Pressure (units (unknown) date) 138/88 unknown) (unknown) (no (unknown) (unknown) Blood Pressure (units (unknown) date) unknown) (unknown) (no (unknown) (unknown) Cardiac arrhythmia (units (unknown) date) unknown) (unknown) (no (unknown) (unknown) Cervical cyst (units ( unknown) date) unknown) (unknown) (no (unknown) (unknown) Chicken pox (units (un known) date) unknown) (unknown) (no (unknown) (unknown) Chief complaint: (units (unknown) date) Allergic Reaction unknown) (unknown) (no (unknown) (unknown) Clinical Impression: (uni ts (unknown) date) unknown) (unknown) (no (unknown) (unknown) Cosign (units (unkno wn) date) unknown) (unknown) (no (unknown) (unknown) Course (units (unkno wn) date) unknown) (unknown) (no (unknown) (unknown) : 1985 (units (unknown) date) Acct:[id number] unknown) (unknown) (no (unknown) (unknown) Date of Service: (units (unknown) date) 11/24/22 unknown) (unknown) (no (unknown) (unknown) Departure (units (unkn own) date) unknown) (unknown) (no (unknown) (unknown) Depression (units (unk nown) date) unknown) (unknown) (no (unknown) (unknown) Discharge Plan (units (unknown) date) unknown) (unknown) (no (unknown) (unknown) Discontinued (units (u nknown) date) Medications unknown) (unknown) (no (unknown) (unknown) Documented By: BS (units (unknown) date) unknown) (unknown) (no (unknown) (unknown) Documented By: KB (units (unknown) date) unknown) (unknown) (no (unknown) (unknown) Documented By: RL (units (unknown) date) unknown) (unknown) (no (unknown) (unknown) ED Attending (units (u nknown) date) Cosignature unknown) Attestation: (unknown) (no (unknown) (unknown) ED Sign-out (units (un known) date) unknown) (unknown) (no (unknown) (unknown) ER Physician: (units ( unknown) date) Marilyn Leigh D.O. unknown) (unknown) (no (unknown) (unknown) Emergency Report (units (unknown) date) unknown) (unknown) (no (unknown) (unknown) Endometriosis (units ( unknown) date) unknown) (unknown) (no (unknown) (unknown) Exam Narrative: (units (unknown) date) unknown) (unknown) (no (unknown) (unknown) Exam (units (unkno wn) date) unknown) (unknown) (no (unknown) (unknown) Family History (units (unknown) date) (Reviewed 11/24/22 @ unknown) 12:59 by Marilyn Leigh DO) (unknown) (no (unknown) (unknown) Family/Other Mental (unit s (unknown) date) health problem unknown) (unknown) (no (unknown) (unknown) Fibromyalgia (units (u nknown) date) unknown) (unknown) (no (unknown) (unknown) Foot pain (units (unkn own) date) unknown) (unknown) (no (unknown) (unknown) Fractures (units (unkn own) date) unknown) (unknown) (no (unknown) (unknown) GEN: well nourished, (uni ts (unknown) date) well appearing unknown) female, alert and oriented x 3, patient (unknown) (no (unknown) (unknown) GI bleeding (units (un known) date) unknown) (unknown) (no (unknown) (unknown) Gastric ulcer (units ( unknown) date) unknown) (unknown) (no (unknown) (unknown) General (units (unkno wn) date) unknown) (unknown) (no (unknown) (unknown) Grandfather (uni ts (unknown) date) Stroke unknown) (unknown) (no (unknown) (unknown) Grandmother Breast (units (unknown) date) cancer unknown) (unknown) (no (unknown) (unknown) Grandmother (uni ts (unknown) date) Stroke unknown) (unknown) (no (unknown) (unknown) HEART: Regular rate (unit s (unknown) date) and rhythm without unknown) murmur, clicks, rubs. (unknown) (no (unknown) (unknown) HEENT: Atraumatic, (units (unknown) date) pupils are equal unknown) round reactive to light, extraocular (unknown) (no (unknown) (unknown) HPI - Allergic (units (unknown) date) Reaction unknown) (unknown) (no (unknown) (unknown) HPI narrative: (units (unknown) date) unknown) (unknown) (no (unknown) (unknown) Headache (units (unkno wn) date) unknown) (unknown) (no (unknown) (unknown) Hearing loss (units (u nknown) date) unknown) (unknown) (no (unknown) (unknown) Hemorrhoid (units (unk nown) date) unknown) (unknown) (no (unknown) (unknown) History of Present (units (unknown) date) Illness unknown) (unknown) (no (unknown) (unknown) History of [...] hernia repair unknown) (unknown) (no (unknown) (unknown) Home Medications (units (unknown) date) unknown) (unknown) (no (unknown) (unknown) Laurent Lucas MD (uni ts (unknown) date) [Primary Care unknown) Provider] (unknown) (no (unknown) (unknown) Hydromorphone HCl (units (unknown) date) (Hydromorphone 1 Mg unknown) Inj) 1 mg IV NOW ONE (unknown) (no (unknown) (unknown) I did speak with new (uni ts (unknown) date) command DI, she unknown) received the medication that makes the (unknown) (no (unknown) (unknown) I hope you continue (unit s (unknown) date) to feel improved. unknown) (unknown) (no (unknown) (unknown) I would continue (units (unknown) date) your home medications unknown) as prescribed. (unknown) (no (unknown) (unknown) Initial Vital Signs (unit s (unknown) date) unknown) (unknown) (no (unknown) (unknown) Initial Vital Signs: (uni ts (unknown) date) unknown) (unknown) (no (unknown) (unknown) Interstitial (units (u nknown) date) cystitis unknown) (unknown) (no (unknown) (unknown) [facility] [address] (uni ts (unknown) date) [address] unknown) [place] [address] (unknown) (no (unknown) (unknown) It is unclear if you (unit s (unknown) date) had a allergic unknown) reaction today or a normal response from the (unknown) (no (unknown) (unknown) Ketorolac (units (unkn own) date) Tromethamine unknown) (Ketorolac 30 Mg/Ml Vial) 30 mg IV NOW ONE (unknown) (no (unknown) (unknown) Kidney stones (units ( unknown) date) unknown) (unknown) (no (unknown) (unknown) LUNGS:Lungs clear to (uni ts (unknown) date) auscultation, no unknown) wheezes, rales, crackles, chest moves (unknown) (no (unknown) (unknown) Last Admin: 11/24/22 (uni ts (unknown) date) 13:01 Dose: 4 mg unknown) (unknown) (no (unknown) (unknown) Last Admin: 11/24/22 (uni ts (unknown) date) 13:33 Dose: 4 mg unknown) (unknown) (no (unknown) (unknown) Last Admin: 11/24/22 (uni ts (unknown) date) 14:30 Dose: 30 mg unknown) (unknown) (no (unknown) (unknown) Last Admin: 11/24/22 (uni ts (unknown) date) 14:31 Dose: 0.5 mg unknown) (unknown) (no (unknown) (unknown) Last Admin: 11/24/22 (uni ts (unknown) date) 14:31 Dose: 1 mg unknown) (unknown) (no (unknown) (unknown) Last Infusion: (units (unknown) date) 11/24/22 15:08 Dose: unknown) 0 mls/hr (unknown) (no (unknown) (unknown) Lorazepam (Lorazepam (uni ts (unknown) date) 2 Mg/Ml Inj) 0.5 mg unknown) IV NOW ONE (unknown) (no (unknown) (unknown) [id number] (units (unk nown) date) unknown) (unknown) (no (unknown) (unknown) MDM - Allergic (units (unknown) date) Reaction unknown) (unknown) (no (unknown) (unknown) MDM Narrative (units ( unknown) date) unknown) (unknown) (no (unknown) (unknown) MSCL: Non-tender, no (uni ts (unknown) date) muscle atrophy, unknown) muscles strength 5/5 upper and lower (unknown) (no (unknown) (unknown) Medical History (units (unknown) date) (Reviewed 11/24/22 @ unknown) 12:59 by Marilyn Leigh DO) (unknown) (no (unknown) (unknown) Medical decision (units (unknown) date) making narrative: unknown) (unknown) (no (unknown) (unknown) Medication (units (unk nown) date) Instructions Recorded unknown) Confirmed (unknown) (no (unknown) (unknown) Medication (units (unk nown) date) Instructions Recorded unknown) (unknown) (no (unknown) (unknown) Mental health (units ( unknown) date) problem unknown) (unknown) (no (unknown) (unknown) Migraine (units (unkno wn) date) unknown) (unknown) (no (unknown) (unknown) Migraines (units (unkn own) date) unknown) (unknown) (no (unknown) (unknown) Mode of arrival: (units (unknown) date) Wheelchair unknown) (unknown) (no (unknown) (unknown) Mother (units (unknown) date) Cancer unknown) (unknown) (no (unknown) (unknown) NEURO:CN 2-12 (units ( unknown) date) intact, sensation unknown) normal (unknown) (no (unknown) (unknown) Narrative (units (unkn own) date) unknown) (unknown) (no (unknown) (unknown) New (units (unkno wn) date) unknown) (unknown) (no (unknown) (unknown) No Action (units (unkn own) date) unknown) (unknown) (no (unknown) (unknown) Ondansetron HCl (units (unknown) date) (Ondansetron 4 Mg/2 unknown) Ml Inj) 4 mg IV NOW ONE (unknown) (no (unknown) (unknown) Ordered: (units (unkno wn) date) unknown) (unknown) (no (unknown) (unknown) Orders (units (unkno wn) date) unknown) (unknown) (no (unknown) (unknown) Ovarian cyst (units (u nknown) date) unknown) (unknown) (no (unknown) (unknown) Oxygen Delivery (units (unknown) date) Method Room Air unknown) 11/24/22 12:14 (unknown) (no (unknown) (unknown) Oxygen Delivery (units (unknown) date) Method Room Air unknown) (unknown) (no (unknown) (unknown) Oxygen Delivery (units (unknown) date) Method unknown) (unknown) (no (unknown) (unknown) PLASTIC MEDICAL TAPE (uni ts (unknown) date) Allergy Mild BLISTERS unknown) Uncoded 11/16/22 11:38 (unknown) (no (unknown) (unknown) PTSD (post-traumatic (uni ts (unknown) date) stress disorder) unknown) (unknown) (no (unknown) (unknown) Painful menstrual (units (unknown) date) periods unknown) (unknown) (no (unknown) (unknown) Patient Disposition: (uni ts (unknown) date) Home unknown) (unknown) (no (unknown) (unknown) Patient History (units (unknown) date) unknown) (unknown) (no (unknown) (unknown) Patient was seen (units (unknown) date) evaluated, she is unknown) hoarse she has nausea she felt like maybe her (unknown) (no (unknown) (unknown) Patient: (units (unkno wn) date) Bibi Arreola W unknown) MR#: (unknown) (no (unknown) (unknown) Please return if you (uni ts (unknown) date) develop fevers, unknown) atypical migraine symptoms, new chest pain (unknown) (no (unknown) (unknown) Prescriptions: (units (unknown) date) unknown) (unknown) (no (unknown) (unknown) Previous Rx's (units ( unknown) date) unknown) (unknown) (no (unknown) (unknown) Pulse Oximetry 100 (units (unknown) date) 11/24/22 12:14 unknown) (unknown) (no (unknown) (unknown) Pulse Oximetry 100 (units (unknown) date) 100 unknown) (unknown) (no (unknown) (unknown) Pulse Oximetry 100 (units (unknown) date) 98 97 unknown) (unknown) (no (unknown) (unknown) Pulse Oximetry 100 (units (unknown) date) unknown) (unknown) (no (unknown) (unknown) Pulse Oximetry 98 (units (unknown) date) 100 100 unknown) (unknown) (no (unknown) (unknown) Pulse Rate 60 60 (units (unknown) date) unknown) (unknown) (no (unknown) (unknown) Pulse Rate 60 61 (units (unknown) date) unknown) (unknown) (no (unknown) (unknown) Pulse Rate 60 (units ( unknown) date) unknown) (unknown) (no (unknown) (unknown) Pulse Rate 61 (units ( unknown) date) unknown) (unknown) (no (unknown) (unknown) Pulse Rate 63 (units ( unknown) date) unknown) (unknown) (no (unknown) (unknown) Pulse Rate 67 64 (units (unknown) date) unknown) (unknown) (no (unknown) (unknown) Pulse Rate 68 66 (units (unknown) date) unknown) (unknown) (no (unknown) (unknown) Pulse Rate 72 (units ( unknown) date) unknown) (unknown) (no (unknown) (unknown) Pulse Rate 77 67 70 (unit s (unknown) date) unknown) (unknown) (no (unknown) (unknown) Pulse Rate 89 (units ( unknown) date) 11/24/22 12:14 unknown) (unknown) (no (unknown) (unknown) Pulse Rate 89 87 79 (unit s (unknown) date) unknown) (unknown) (no (unknown) (unknown) ROS Unobtainable: All (uni ts (unknown) date) systems reviewed + unknown) are unremarkable except as noted in HPI (unknown) (no (unknown) (unknown) Recheck patient (units (unknown) date) states airway is unknown) feeling good but still having migraine (unknown) (no (unknown) (unknown) Referrals: (units (unk nown) date) unknown) (unknown) (no (unknown) (unknown) Related Data (units (u nknown) date) unknown) (unknown) (no (unknown) (unknown) Respiratory Rate 22 (unit s (unknown) date) 11/24/22 12:14 unknown) (unknown) (no (unknown) (unknown) Respiratory Rate 22 (unit s (unknown) date) unknown) (unknown) (no (unknown) (unknown) Respiratory Rate (units (unknown) date) unknown) (unknown) (no (unknown) (unknown) Review of Systems (units (unknown) date) unknown) (unknown) (no (unknown) (unknown) Ruptured tympanic (units (unknown) date) membrane unknown) (unknown) (no (unknown) (unknown) Rx Instructions: (units (unknown) date) unknown) (unknown) (no (unknown) (unknown) SKIN: No rash, no (units (unknown) date) erythema or other unknown) skin changes. (unknown) (no (unknown) (unknown) Shoulder pain (units ( unknown) date) () unknown) (unknown) (no (unknown) (unknown) Signed By: (units (unk nown) date) unknown) (unknown) (no (unknown) (unknown) Smoking Status: (units (unknown) date) Former smoker unknown) (unknown) (no (unknown) (unknown) Social History (units (unknown) date) (Reviewed 11/24/22 @ unknown) 12:59 by Marilyn Leigh DO) (unknown) (no (unknown) (unknown) Sodium Chloride (units (unknown) date) (Normal Saline 0.9%) unknown) 500 mls @ 1,000 mls/hr IV BOLUS ONE (unknown) (no (unknown) (unknown) Source: patient (units (unknown) date) unknown) (unknown) (no (unknown) (unknown) Stand Alone Forms: (units (unknown) date) Patient Portal/API unknown) (unknown) (no (unknown) (unknown) Stated complaint: (units (unknown) date) nausea head pain unknown) physician ref sent from labs (unknown) (no (unknown) (unknown) Stop: 11/24/22 12:57 (uni ts (unknown) date) unknown) (unknown) (no (unknown) (unknown) Stop: 11/24/22 13:27 (uni ts (unknown) date) unknown) (unknown) (no (unknown) (unknown) Stop: 11/24/22 13:55 (uni ts (unknown) date) unknown) (unknown) (no (unknown) (unknown) Stop: 11/24/22 14:21 (uni ts (unknown) date) unknown) (unknown) (no (unknown) (unknown) Stroke (units (unkno wn) date) unknown) (unknown) (no (unknown) (unknown) Surgical History (units (unknown) date) (Reviewed 11/24/22 @ unknown) 12:59 by Marilyn Leigh DO) (unknown) (no (unknown) (unknown) TIA (transient (units (unknown) date) ischemic attack) unknown) (unknown) (no (unknown) (unknown) Temperature 98.1 F (units (unknown) date) 11/24/22 12:14 unknown) (unknown) (no (unknown) (unknown) Temperature 98.1 F (units (unknown) date) unknown) (unknown) (no (unknown) (unknown) Temperature (units (un known) date) unknown) (unknown) (no (unknown) (unknown) This is 37-year-old (unit s (unknown) date) female with 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 (unknown) (no (unknown) (unknown) Time Seen by (units (u nknown) date) Provider: 11/24/22 unknown) 12:54 (unknown) (no (unknown) (unknown) Tinnitus (units (unkno wn) date) unknown) (unknown) (no (unknown) (unknown) Vertigo (units (unkno wn) date) unknown) (unknown) (no (unknown) (unknown) Vital Signs - 8 hr (units (unknown) date) unknown) (unknown) (no (unknown) (unknown) Vital Signs (units (un known) date) unknown) (unknown) (no (unknown) (unknown) Vital signs: (units (u nknown) date) unknown) (unknown) (no (unknown) (unknown) [DIHYDROERGOCRISTINE (uni ts (unknown) date) ] unknown) (unknown) (no (unknown) (unknown) [DIHYDROERGOTAMINE] (unit s (unknown) date) unknown) (unknown) (no (unknown) (unknown) [DIPHENHYDRAMINE] (units (unknown) date) unknown) (unknown) (no (unknown) (unknown) [From COMPAZINE] (units (unknown) date) unknown) (unknown) (no (unknown) (unknown) [METOCLOPRAMIDE] (units (unknown) date) unknown) (unknown) (no (unknown) (unknown) [PRASTERONE (DHEA)] (unit s (unknown) date) unknown) (unknown) (no (unknown) (unknown) a migraine last (units (unknown) date) night it had improved unknown) but seemed to return when this was (unknown) (no (unknown) (unknown) acetaminophen (units ( unknown) date) [ACETAMINOPHEN] unknown) Allergy Unknown Verified 11/24/22 13:15 (unknown) (no (unknown) (unknown) adhesive [ADHESIVE] (unit s (unknown) date) Allergy Unknown unknown) Verified 11/24/22 13:15 (unknown) (no (unknown) (unknown) aerosol inhaler (units (unknown) date) shortness of breath unknown) or wheezing (unknown) (no (unknown) (unknown) albuterol sulfate 90 (uni ts (unknown) date) mcg/actuation 2 puff unknown) inhalation Q6H PRN 10/10/22 (unknown) (no (unknown) (unknown) albuterol sulfate 90 (uni ts (unknown) date) mcg/actuation HFA unknown) aerosol inhaler (unknown) (no (unknown) (unknown) alcohol intake (units (unknown) date) frequency: 0-2 drinks unknown) per day (unknown) (no (unknown) (unknown) also states she (units (unknown) date) feels really anxious unknown) that she might be having an allergic (unknown) (no (unknown) (unknown) amitriptyline (units ( unknown) date) [AMITRIPTYLINE] unknown) Allergy Unknown Verified 11/24/22 13:15 (unknown) (no (unknown) (unknown) and below (units (unkn own) date) unknown) (unknown) (no (unknown) (unknown) and see if this (units (unknown) date) helps resolve her unknown) symptoms. Patient will require close (unknown) (no (unknown) (unknown) appears to be in (units (unknown) date) [id number] unknown) distress. (unknown) (no (unknown) (unknown) as a single dose (units (unknown) date) unknown) (unknown) (no (unknown) (unknown) aspirin [ASPIRIN] (units (unknown) date) Allergy Unknown unknown) Verified 11/24/22 13:15 (unknown) (no (unknown) (unknown) benzocaine (units (unk nown) date) [BENZOCAINE] Allergy unknown) Unknown Verified 11/24/22 13:15 (unknown) (no (unknown) (unknown) benzonatate 100 mg (units (unknown) date) capsule 100 mg PO unknown) BID-TID PRN cough #60 10/12/22 (unknown) (no (unknown) (unknown) benzonatate 100 mg (units (unknown) date) capsule unknown) (unknown) (no (unknown) (unknown) biotin 1 mg capsule (unit s (unknown) date) 1 mg PO DAILY unknown) 05/26/21 11/16/22 (unknown) (no (unknown) (unknown) biotin 1 mg capsule (unit s (unknown) date) unknown) (unknown) (no (unknown) (unknown) butamben [From (units (unknown) date) CETACAINE] Allergy unknown) Unknown Verified 11/24/22 13:15 (unknown) (no (unknown) (unknown) can not take Benadryl (uni ts (unknown) date) or steroids as they unknown) will induce steroid psychosis and that (unknown) (no (unknown) (unknown) caps (units (unkno wn) date) unknown) (unknown) (no (unknown) (unknown) changes. She states (unit s (unknown) date) she is very nauseated unknown) but not actively vomiting. No (unknown) (no (unknown) (unknown) cholecalciferol (units (unknown) date) (vitamin D3) 250 250 unknown) mcg PO DAILY 05/26/21 11/16/22 (unknown) (no (unknown) (unknown) cholecalciferol (units (unknown) date) (vitamin D3) 250 mcg unknown) (10,000 unit) capsule (unknown) (no (unknown) (unknown) clonazepam 1 mg (units (unknown) date) tablet 1 - 2 mg PO unknown) BID 05/26/21 11/16/22 (unknown) (no (unknown) (unknown) clonazepam 1 mg (units (unknown) date) tablet unknown) (unknown) (no (unknown) (unknown) conjunctival pallor. (uni ts (unknown) date) Throat is clear unknown) without any exudates, erythema, tonsillar (unknown) (no (unknown) (unknown) continuously through (uni ts (unknown) date) a line and is then unknown) monitored once it stopped. Patient (unknown) (no (unknown) (unknown) dexamethasone (units ( unknown) date) [DEXAMETHASONE] unknown) Allergy Unknown Verified 11/24/22 13:15 (unknown) (no (unknown) (unknown) dextroamphetamine-am (uni ts (unknown) date) phetamine 10 20 mg PO unknown) BID #0 tabs 05/26/21 11/16/22 (unknown) (no (unknown) (unknown) dextroamphetamine-am (uni ts (unknown) date) phetamine [Adderall] unknown) 10 mg tablet (unknown) (no (unknown) (unknown) diarrhea. She states (uni ts (unknown) date) no chest pain, she unknown) felt a little tight in her chest but (unknown) (no (unknown) (unknown) dicloxacillin (units ( unknown) date) [DICLOXACILLIN] unknown) Allergy Unknown Verified 11/24/22 13:15 (unknown) (no (unknown) (unknown) dihydroergocristine (unit s (unknown) date) Allergy Unknown unknown) Verified 11/24/22 13:15 (unknown) (no (unknown) (unknown) dihydroergotamine (units (unknown) date) Allergy Unknown unknown) Verified 11/24/22 13:15 (unknown) (no (unknown) (unknown) diphenhydramine (units (unknown) date) Allergy Unknown unknown) Verified 11/24/22 13:15 (unknown) (no (unknown) (unknown) enlargement or (units (unknown) date) uvular deviation, no unknown) oropharyngeal swelling, patient is resting (unknown) (no (unknown) (unknown) epinephrine 0.3 (units (unknown) date) mg/0.3 mL 0.3 mg IM unknown) ONCE 05/26/21 11/16/22 (unknown) (no (unknown) (unknown) epinephrine 0.3 (units (unknown) date) mg/0.3 mL unknown) auto-injector (unknown) (no (unknown) (unknown) epinephrine. (units (u nknown) date) Discussed giving IM unknown) epinephrine and she would like to try Zofran (unknown) (no (unknown) (unknown) extremities, full (units (unknown) date) range of motion, unknown) normal gait (unknown) (no (unknown) (unknown) for refill. [facility] [place] [facility] [place] (unknown) (no (unknown) (unknown) for regimen, she has (uni ts (unknown) date) received a portion unknown) with fluids and Zofran already. (unknown) (no (unknown) (unknown) from. She has (units ( unknown) date) persistent headache unknown) symptoms and discussed giving her typical (unknown) (no (unknown) (unknown) frovatriptan (units (u nknown) date) [FROVATRIPTAN] unknown) Allergy Unknown Verified 11/24/22 13:15 (unknown) (no (unknown) (unknown) gallbladder (units (un known) date) contract, the unknown) half-life that medication is 1.3 minutes. (unknown) (no (unknown) (unknown) had some nausea but (unit s (unknown) date) no vomiting. unknown) Discussed with patient she states she can not (unknown) (no (unknown) (unknown) have steroids or (units (unknown) date) Benadryl for allergic unknown) reaction she can only receive (unknown) (no (unknown) (unknown) headache which she (units (unknown) date) states is atypical. unknown) She is neurologically intact, she has (unknown) (no (unknown) (unknown) her typical migraine (uni ts (unknown) date) cocktail which is unknown) where her 8 mg of Zofran and fluids came (unknown) (no (unknown) (unknown) hydromorphone 2 mg (units (unknown) date) tablet 2 mg PO Q4-6H unknown) PRN 11/16/22 11/16/22 (unknown) (no (unknown) (unknown) hydromorphone 2 mg (units (unknown) date) tablet unknown) (unknown) (no (unknown) (unknown) hydroxyzine (units (un known) date) [HYDROXYZINE] Allergy unknown) Unknown Verified 11/24/22 13:15 (unknown) (no (unknown) (unknown) ibuprofen (units (unkn own) date) [IBUPROFEN] Allergy unknown) Unknown Verified 11/24/22 13:15 (unknown) (no (unknown) (unknown) in chair she is (units (unknown) date) speaking in full unknown) sentences, she is some slight hoarseness, no (unknown) (no (unknown) (unknown) injection for her (units (unknown) date) HIDA scan when her unknown) symptoms started. Patient also developed (unknown) (no (unknown) (unknown) injection, (units (unk nown) date) auto-injector unknown) (unknown) (no (unknown) (unknown) latex [LATEX] (units ( unknown) date) Allergy Unknown unknown) Verified 11/24/22 13:15 (unknown) (no (unknown) (unknown) little bit of a (units (unknown) date) headache. She has unknown) multiple medication allergies and received an (unknown) (no (unknown) (unknown) lorazepam 0.5mg, (units (unknown) date) ketorolac 30 mg and unknown) Dilaudid 1 mg. Patient is feeling imp (unknown) (no (unknown) (unknown) lower extremity, (units (unknown) date) insomnia, anxiety and unknown) multiple medication allergies. Patient (unknown) (no (unknown) (unknown) magnesium glycinate (unit s (unknown) date) 100 mg tablet 100 mg unknown) PO DAILY 05/26/21 11/16/22 (unknown) (no (unknown) (unknown) magnesium glycinate (unit s (unknown) date) 100 mg tablet unknown) (unknown) (no (unknown) (unknown) masses noted, no (units (unknown) date) hepatosplenomegaly unknown) (unknown) (no (unknown) (unknown) mcg (10,000 unit) (units (unknown) date) capsule unknown) (unknown) (no (unknown) (unknown) medication that you (units (unknown) date) are given to make unknown) your gallbladder contract during your HIDA (unknown) (no (unknown) (unknown) medication. Patient (unit s (unknown) date) has a letter from Dr. serrato) [place] on official letter head (unknown) (no (unknown) (unknown) melatonin 10 mg (units (unknown) date) capsule 10 mg PO unknown) BEDTIME PRN 05/26/21 11/16/22 (unknown) (no (unknown) (unknown) melatonin 10 mg (units (unknown) date) capsule unknown) (unknown) (no (unknown) (unknown) meloxicam 7.5 mg (units (unknown) date) tablet (Mobic) 15 mg unknown) PO [facility] 05/26/21 11/16/22 (unknown) (no (unknown) (unknown) meloxicam [Mobic] (units (unknown) date) 7.5 mg tablet unknown) (unknown) (no (unknown) (unknown) metoclopramide (units (unknown) date) Allergy Unknown unknown) Verified 11/24/22 13:15 (unknown) (no (unknown) (unknown) mg tablet (Adderall) (uni ts (unknown) date) unknown) (unknown) (no (unknown) (unknown) monitoring and if (units (unknown) date) any worsening she unknown) needs to receive IM epinephrine. (unknown) (no (unknown) (unknown) movements are (units ( unknown) date) intact, nares are unknown) clear, TMs are clear with no fluid, there is no (unknown) (no (unknown) (unknown) nortriptyline (units ( unknown) date) [NORTRIPTYLINE] unknown) Allergy Unknown Verified 11/24/22 13:15 (unknown) (no (unknown) (unknown) occurring. Patient (units (unknown) date) denies any fevers or unknown) chills. (unknown) (no (unknown) (unknown) ondansetron HCl 8 mg (uni ts (unknown) date) tablet 8 mg PO Q8H unknown) PRN nausea and 11/24/22 (unknown) (no (unknown) (unknown) ondansetron HCl 8 mg (uni ts (unknown) date) tablet unknown) (unknown) (no (unknown) (unknown) or shortness of (units (unknown) date) breath, persistent unknown) vomiting, new or worsening abdominal pain or (unknown) (no (unknown) (unknown) other new or (units (u nknown) date) concerning changes. unknown) (unknown) (no (unknown) (unknown) prasterone (DHEA) (units (unknown) date) Allergy Unknown unknown) Verified 11/24/22 13:15 (unknown) (no (unknown) (unknown) prednisone (units (unk nown) date) [PREDNISONE] Allergy unknown) Unknown Verified 11/24/22 13:15 (unknown) (no (unknown) (unknown) pregabalin 100 mg (units (unknown) date) capsule (Lyrica) 200 unknown) mg PO BID 05/26/21 11/16/22 (unknown) (no (unknown) (unknown) pregabalin [Lyrica] (unit s (unknown) date) 100 mg capsule unknown) (unknown) (no (unknown) (unknown) prochlorperazine (units (unknown) date) Allergy Unknown unknown) Verified 11/24/22 13:15 (unknown) (no (unknown) (unknown) promethazine [From (units (unknown) date) PHENERGAN] Allergy unknown) Unknown Verified 11/24/22 13:15 (unknown) (no (unknown) (unknown) reaction as well. (units (unknown) date) She states multiple unknown) allergies to medications she states she (unknown) (no (unknown) (unknown) really anxious and (units (unknown) date) that maybe her throat unknown) was tight. She states no rash or skin (unknown) (no (unknown) (unknown) rizatriptan (units (un known) date) [RIZATRIPTAN] Allergy unknown) Unknown Verified 11/24/22 13:15 (unknown) (no (unknown) (unknown) roved. She is not (units (unknown) date) having any persistent unknown) changes terms of airway and I suspect (unknown) (no (unknown) (unknown) scan. (units (unkno wn) date) unknown) (unknown) (no (unknown) (unknown) sertraline 50 mg (units (unknown) date) tablet (Zoloft) 50 mg unknown) PO DAILY #60 tabs 11/16/22 (unknown) (no (unknown) (unknown) sertraline [Zoloft] (unit s (unknown) date) 50 mg tablet unknown) (unknown) (no (unknown) (unknown) she had more of a (units (unknown) date) response or adverse unknown) reaction and not an allergic reaction to (unknown) (no (unknown) (unknown) she typically takes 8 (uni ts (unknown) date) mg tablets and scores unknown) them in half until she can follow-up (unknown) (no (unknown) (unknown) states she did also (unit s (unknown) date) develop headache, she unknown) states she does have migraine she had (unknown) (no (unknown) (unknown) stridor (units (unkno wn) date) unknown) (unknown) (no (unknown) (unknown) sumatriptan (units (un known) date) [SUMATRIPTAN] Allergy unknown) Unknown Verified 11/24/22 13:15 (unknown) (no (unknown) (unknown) symmetrically (units ( unknown) date) unknown) (unknown) (no (unknown) (unknown) symptoms. Patient (units (unknown) date) has a letter from her unknown) provider at [facility] with (unknown) (no (unknown) (unknown) tablet (units (unkno wn) date) unknown) (unknown) (no (unknown) (unknown) temazepam 30 mg (units (unknown) date) capsule 30 mg PO unknown) BEDTIME PRN 05/26/21 11/16/22 (unknown) (no (unknown) (unknown) temazepam 30 mg (units (unknown) date) capsule unknown) (unknown) (no (unknown) (unknown) tetracaine (units (unk nown) date) [TETRACAINE] Allergy unknown) Unknown Verified 11/24/22 13:15 (unknown) (no (unknown) (unknown) that she was going (units (unknown) date) to vomit but did not unknown) actually vomit and states she felt (unknown) (no (unknown) (unknown) the HIDA scan. (units (unknown) date) Patient did ask if unknown) she can have a short-term refill for Zofran (unknown) (no (unknown) (unknown) throat was clear but (uni ts (unknown) date) she also states she unknown) might just be anxious. She also has a (unknown) (no (unknown) (unknown) topiramate [From (units (unknown) date) TOPAMAX] Allergy unknown) Unknown Verified 11/24/22 13:15 (unknown) (no (unknown) (unknown) valproic acid (units ( unknown) date) [VALPROIC ACID] unknown) Allergy Unknown Verified 11/24/22 13:15 (unknown) (no (unknown) (unknown) vancomycin (units (unk nown) date) [VANCOMYCIN] Allergy unknown) Unknown Verified 11/24/22 13:15 (unknown) (no (unknown) (unknown) verapamil (units (unkn own) date) [VERAPAMIL] Allergy unknown) Unknown Verified 11/24/22 13:15 (unknown) (no (unknown) (unknown) vomiting 5 days #10 (unit s (unknown) date) tabs unknown) (unknown) (no (unknown) (unknown) was receiving an (units (unknown) date) injection during her unknown) HIDA scan and developed nausea sensation (unknown) (no (unknown) (unknown) when she is had (units (unknown) date) anaphylactic unknown) reactions she is received epinephrine either IM or (unknown) (no (unknown) (unknown) zinc sulfate 50 mg (units (unknown) date) zinc (220 mg) 50 mg unknown) PO DAILY 05/26/21 11/16/22 (unknown) (no (unknown) (unknown) zinc sulfate 50 mg (units (unknown) date) zinc (220 mg) tablet unknown) Result panel 181 (unknown) (no (unknown) (unknown) (no value) (units (unk nown) date) unknown) (unknown) (no (unknown) (unknown) 12/05/22 (units (unkno wn) date) unknown) (unknown) (no (unknown) (unknown) [address] [place] [address] (units (unknown) date) unknown) (unknown) (no (unknown) (unknown) : [id number] (units (u nknown) date) unknown) (unknown) (no (unknown) (unknown) Accession Number: (units (unknown) date) [id number] unknown) (unknown) (no (unknown) (unknown) Age/Sex: 37 / F (units (unknown) date) Date of Service: unknown) (unknown) (no (unknown) (unknown) [place], [place] (units ( unknown) date) [id number] unknown) (unknown) (no (unknown) (unknown) Approved by: Robbie (units (unknown) date) Do Moya on unknown) 12/05/2022 at 16:23 (unknown) (no (unknown) (unknown) COMPARISON: None. 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 (unknown) (no (unknown) (unknown) INDICATIONS: (units (u nknown) date) Personal history of unknown) other specified conditions (unknown) (no (unknown) (unknown) [facility] (units (unknown) date) unknown) (unknown) (no (unknown) (unknown) Loc: RAD (units (unkno wn) date) unknown) (unknown) (no (unknown) (unknown) Ordering Provider: (units (unknown) date) Bayron Bennett MD unknown) (unknown) (no (unknown) (unknown) PROCEDURE: FL (units ( unknown) date) BARIUM SWALLOW W unknown) AIR (unknown) (no (unknown) (unknown) Patient: (units (unkno wn) date) Bibi Arreola W unknown) MR# (unknown) (no (unknown) (unknown) Procedure: FL (units ( unknown) date) BARIUM SWALLOW W unknown) AIR (unknown) (no (unknown) (unknown) Signed (units (unkno wn) date) unknown) (unknown) (no (unknown) (unknown) XRay Report (units (un known) date) unknown) (unknown) (no (unknown) (unknown) defect. No hiatal (units (unknown) date) hernia. No unknown) gastroesophageal reflux. Visualized portions of (unknown) (no (unknown) (unknown) moderate (units (unkno wn) date) unknown) (unknown) (no (unknown) (unknown) mucosal (units (unkno wn) date) unknown) (unknown) (no (unknown) (unknown) residual of (units (un known) date) contrast within the unknown) esophagus. No filling defect or perceived (unknown) (no (unknown) (unknown) stomach and (units (un known) date) duodenum are unknown) unremarkable. (unknown) (no (unknown) (unknown) the (units (unkno wn) date) unknown) Result panel 182 (unknown) (no (unknown) (unknown) (no value) (units (unk nown) date) unknown) (unknown) (no (unknown) (unknown) 12/08/22 (units (unkno wn) date) unknown) (unknown) (no (unknown) (unknown) 13:15) (units (unkno wn) date) unknown) (unknown) (no (unknown) (unknown) Age/Sex: 37 / F Date (uni ts (unknown) date) of Service: unknown) (unknown) (no (unknown) (unknown) Allergies (units (unkn own) date) unknown) (unknown) (no (unknown) (unknown) [place] [address] (unit s (unknown) date) unknown) (unknown) (no (unknown) (unknown) Anesthesia (units (unk nown) date) unknown) (unknown) (no (unknown) (unknown) Ankle pain (units (unk nown) date) unknown) (unknown) (no (unknown) (unknown) Anxiety (units (unkno wn) date) unknown) (unknown) (no (unknown) (unknown) Asthma (units (unkno wn) date) unknown) (unknown) (no (unknown) (unknown) Attending Dr: (units ( unknown) date) Laurent Lucas MD unknown) (unknown) (no (unknown) (unknown) BLISTERS AT SITE (units (unknown) date) unknown) (unknown) (no (unknown) (unknown) Cardiac arrhythmia (units (unknown) date) unknown) (unknown) (no (unknown) (unknown) Cervical cyst (units ( unknown) date) unknown) (unknown) (no (unknown) (unknown) Chicken pox (units (un known) date) unknown) (unknown) (no (unknown) (unknown) : 1985 (units (unknown) date) Acct:[id number] unknown) (unknown) (no (unknown) (unknown) Depression (units (unk nown) date) unknown) (unknown) (no (unknown) (unknown) Dept at (units (unkno wn) date) . unknown) (unknown) (no (unknown) (unknown) Documented By: (units (unknown) date) Laurent Lucas MD unknown) 12/08/22 1527 (unknown) (no (unknown) (unknown) Draft (units (unkno wn) date) unknown) (unknown) (no (unknown) (unknown) Endometriosis (units ( unknown) date) unknown) (unknown) (no (unknown) (unknown) Family History (units (unknown) date) (Reviewed 11/24/22 @ unknown) 12:59 by Marilyn Leigh DO) (unknown) (no (unknown) (unknown) Family Practice (units [...] wn) date) unknown) (unknown) (no (unknown) (unknown) Hearing [...] repair unknown) (unknown) (no (unknown) (unknown) Intake performed by: (uni ts (unknown) date) Dorina Griffiths unknown) (unknown) (no (unknown) (unknown) Intake (units (unkno wn) date) unknown) (unknown) (no (unknown) (unknown) Intake- Clincial (units (unknown) date) Staff unknown) (unknown) (no (unknown) (unknown) Interstitial (units (u nknown) date) cystitis unknown) (unknown) (no (unknown) (unknown) Kidney stones (units ( unknown) date) unknown) (unknown) (no (unknown) (unknown) Loc: [facility] (units (unkno wn) date) unknown) (unknown) (no (unknown) (unknown) [id number] (units (unk nown) date) unknown) (unknown) (no (unknown) (unknown) Medical History (units (unknown) date) (Reviewed 11/24/22 @ unknown) 12:59 by Marilyn Leigh DO) (unknown) (no (unknown) (unknown) Mental health (units [...] ts (unknown) date) Allergy (Mild, unknown) Uncoded 11/16/22 11:38) (unknown) (no (unknown) (unknown) PTSD (post-traumatic (uni [...] (unknown) (unknown) Surgical History (units (unknown) date) (Reviewed 11/24/22 @ unknown) 12:59 by Marilyn Leigh DO) (unknown) (no (unknown) (unknown) TIA (transient (units [...] (unknown) (unknown) Visit Reasons: (units (unknown) date) acupuncture 04 unknown) (unknown) (no (unknown) (unknown) acetaminophen (units ( unknown) date) [ACETAMINOPHEN] unknown) Allergy (Unknown, Verified 11/24/22 13:15) (unknown) (no (unknown) (unknown) adhesive [ADHESIVE] (unit s (unknown) date) Allergy (Unknown, unknown) Verified 11/24/22 13:15) (unknown) (no (unknown) (unknown) amitriptyline (units ( unknown) date) [AMITRIPTYLINE] unknown) Allergy (Unknown, Verified 11/24/22 13:15) (unknown) (no (unknown) (unknown) aspirin [ASPIRIN] (units (unknown) date) Allergy (Unknown, unknown) Verified 11/24/22 13:15) (unknown) (no (unknown) (unknown) benzocaine (units (unk nown) date) [BENZOCAINE] Allergy unknown) (Unknown, Verified 11/24/22 13:15) (unknown) (no (unknown) (unknown) butamben [From (units (unknown) date) CETACAINE] Allergy unknown) (Unknown, Verified 11/24/22 13:15) (unknown) (no (unknown) (unknown) dexamethasone (units ( unknown) date) [DEXAMETHASONE] unknown) Allergy (Unknown, Verified 11/24/22 13:15) (unknown) (no (unknown) (unknown) dicloxacillin (units ( unknown) date) [DICLOXACILLIN] unknown) Allergy (Unknown, Verified 11/24/22 13:15) (unknown) (no (unknown) (unknown) dihydroergocristine (unit s (unknown) date) [DIHYDROERGOCRISTINE] unknown) Allergy (Unknown, Verified 11/24/22 (unknown) (no (unknown) (unknown) dihydroergotamine (units (unknown) date) [DIHYDROERGOTAMINE] unknown) Allergy (Unknown, Verified 11/24/22 13:15) (unknown) (no (unknown) (unknown) diphenhydramine (units (unknown) date) [DIPHENHYDRAMINE] unknown) Allergy (Unknown, Verified 11/24/22 13:15) (unknown) (no (unknown) (unknown) frovatriptan (units (u nknown) date) [FROVATRIPTAN] unknown) Allergy (Unknown, Verified 11/24/22 13:15) (unknown) (no (unknown) (unknown) have occurred. If (units (unknown) date) there are any unknown) questions, please contact the Medical Records (unknown) (no (unknown) (unknown) hydroxyzine (units (un known) date) [HYDROXYZINE] Allergy unknown) (Unknown, Verified 11/24/22 13:15) (unknown) (no (unknown) (unknown) ibuprofen (units (unkn own) date) [IBUPROFEN] Allergy unknown) (Unknown, Verified 11/24/22 13:15) (unknown) (no (unknown) (unknown) latex [LATEX] (units ( unknown) date) Allergy (Unknown, unknown) Verified 11/24/22 13:15) (unknown) (no (unknown) (unknown) may occur. (units (unk nown) date) Occasional wrong-word unknown) or 'sound-alike' substitutions may have (unknown) (no (unknown) (unknown) metoclopramide (units (unknown) date) [METOCLOPRAMIDE] unknown) Allergy (Unknown, Verified 11/24/22 13:15) (unknown) (no (unknown) (unknown) nortriptyline (units ( unknown) date) [NORTRIPTYLINE] unknown) Allergy (Unknown, Verified 11/24/22 13:15) (unknown) (no (unknown) (unknown) occurred due to the (unit s (unknown) date) inherent limitations unknown) of voice recognition software. Please (unknown) (no (unknown) (unknown) prasterone (DHEA) (units (unknown) date) [PRASTERONE (DHEA)] unknown) Allergy (Unknown, Verified 11/24/22 13:15) (unknown) (no (unknown) (unknown) prednisone (units (unk nown) date) [PREDNISONE] Allergy unknown) (Unknown, Verified 11/24/22 13:15) (unknown) (no (unknown) (unknown) prochlorperazine (units (unknown) date) [From COMPAZINE] unknown) Allergy (Unknown, Verified 11/24/22 13:15) (unknown) (no (unknown) (unknown) promethazine [From (units (unknown) date) PHENERGAN] Allergy unknown) (Unknown, Verified 11/24/22 13:15) (unknown) (no (unknown) (unknown) read the note (units ( unknown) date) carefully and unknown) recognize, using context, where these substitutions (unknown) (no (unknown) (unknown) rizatriptan (units (un known) date) [RIZATRIPTAN] Allergy unknown) (Unknown, Verified 11/24/22 13:15) (unknown) (no (unknown) (unknown) software. Although (units (unknown) date) every effort is made unknown) to edit content, plastic block boiler reliner errors (unknown) (no (unknown) (unknown) sumatriptan (units (un known) date) [SUMATRIPTAN] Allergy unknown) (Unknown, Verified 11/24/22 13:15) (unknown) (no (unknown) (unknown) tetracaine (units (unk nown) date) [TETRACAINE] Allergy unknown) (Unknown, Verified 11/24/22 13:15) (unknown) (no (unknown) (unknown) topiramate [From (units (unknown) date) TOPAMAX] Allergy unknown) (Unknown, Verified 11/24/22 13:15) (unknown) (no (unknown) (unknown) valproic acid (units ( unknown) date) [VALPROIC ACID] unknown) Allergy (Unknown, Verified 11/24/22 13:15) (unknown) (no (unknown) (unknown) vancomycin (units (unk nown) date) [VANCOMYCIN] Allergy unknown) (Unknown, Verified 11/24/22 13:15) (unknown) (no (unknown) (unknown) verapamil (units (unkn own) date) [VERAPAMIL] Allergy unknown) (Unknown, Verified 11/24/22 13:15) Result panel 183 (unknown) (no (unknown) (unknown) (no value) (units (unk nown) date) unknown) (unknown) (no (unknown) (unknown) 12/08/22 (units (unkno wn) date) unknown) (unknown) (no (unknown) (unknown) 12/08/22] (units (unkn own) date) unknown) (unknown) (no (unknown) (unknown) 05/26/21 [History (units (unknown) date) Confirmed 12/08/22] unknown) (unknown) (no (unknown) (unknown) 15:36) (units (unkno wn) date) unknown) (unknown) (no (unknown) (unknown) 37 Y/O Female (units (u nknown) date) presents today for unknown) her first acupuncture treatment with Dr Lucas. (unknown) (no (unknown) (unknown) Age/Sex: 37 / F Date (uni ts (unknown) date) of Service: unknown) (unknown) (no (unknown) (unknown) Allergies (units (unkn own) date) unknown) (unknown) (no (unknown) (unknown) [place] [address] (unit s (unknown) date) unknown) (unknown) (no (unknown) (unknown) Anesthesia (units (unk nown) date) unknown) (unknown) (no (unknown) (unknown) Ankle pain (units (unk nown) date) unknown) (unknown) (no (unknown) (unknown) Anxiety (units (unkno wn) date) unknown) (unknown) (no (unknown) (unknown) Asthma (units (unkno wn) date) unknown) (unknown) (no (unknown) (unknown) Attending Dr: (units ( unknown) date) Laurent Lucas MD unknown) (unknown) (no (unknown) (unknown) BLISTERS AT SITE (units (unknown) date) unknown) (unknown) (no (unknown) (unknown) Cardiac arrhythmia (units (unknown) date) unknown) (unknown) (no (unknown) (unknown) Cervical cyst (units ( unknown) date) unknown) (unknown) (no (unknown) (unknown) Chicken pox (units (un known) date) unknown) (unknown) (no (unknown) (unknown) Confirmed 12/08/22] (unit s (unknown) date) unknown) (unknown) (no (unknown) (unknown) : 1985 (units (unknown) date) Acct:[id number] unknown) (unknown) (no (unknown) (unknown) Depression (units (unk nown) date) unknown) (unknown) (no (unknown) (unknown) Dept at (units (unkno wn) date) . unknown) (unknown) (no (unknown) (unknown) Documented By: (units (unknown) date) Laurent Lucas MD unknown) 12/08/22 1527 (unknown) (no (unknown) (unknown) Draft (units (unkno wn) date) unknown) (unknown) (no (unknown) (unknown) Endometriosis (units ( unknown) date) unknown) (unknown) (no (unknown) (unknown) Family History (units (unknown) date) (Reviewed 11/24/22 @ unknown) 12:59 by Marilyn Leigh DO) (unknown) (no (unknown) (unknown) Family Practice (units [...] wn) date) unknown) (unknown) (no (unknown) (unknown) Hearing [...] Intake performed by: (uni ts (unknown) date) Dorina Griffiths unknown) (unknown) (no (unknown) (unknown) Intake (units (unkno wn) date) unknown) (unknown) (no (unknown) (unknown) Intake- Clincial (units (unknown) date) Staff unknown) (unknown) (no (unknown) (unknown) Interstitial (units (u nknown) date) cystitis unknown) (unknown) (no (unknown) (unknown) Kidney stones (units ( unknown) date) unknown) (unknown) (no (unknown) (unknown) Loc: [facility] (units (unkno wn) date) unknown) (unknown) (no (unknown) (unknown) [id number] (units (unk nown) date) unknown) (unknown) (no (unknown) (unknown) Medical History (units (unknown) date) (Reviewed 11/24/22 @ unknown) 12:59 by Marilyn Leigh DO) (unknown) (no (unknown) (unknown) Medications (units (un [...] ts (unknown) date) Allergy (Mild, unknown) Uncoded 12/08/22 15:36) (unknown) (no (unknown) (unknown) PTSD (post-traumatic (uni ts (unknown) date) stress disorder) unknown) (unknown) (no (unknown) (unknown) Painful menstrual (units (unknown) date) periods unknown) (unknown) (no (unknown) (unknown) Patient: (units (unkno wn) date) MaxwellBibi unknown) MR#: (unknown) (no (unknown) (unknown) Reason [...] (unknown) (unknown) Surgical History (units (unknown) date) (Reviewed 11/24/22 @ unknown) 12:59 by Marilyn Leigh DO) (unknown) (no (unknown) (unknown) TIA (transient (units [...] (unknown) (unknown) Visit Reasons: (units (unknown) date) acupuncture 04 unknown) (unknown) (no (unknown) (unknown) [History Confirmed (units (unknown) date) 12/08/22] unknown) (unknown) (no (unknown) (unknown) acetaminophen (units ( unknown) date) [ACETAMINOPHEN] unknown) Allergy (Unknown, Verified 12/08/22 15:36) (unknown) (no (unknown) (unknown) adhesive [ADHESIVE] (unit s (unknown) date) Allergy (Unknown, unknown) Verified 12/08/22 15:36) (unknown) (no (unknown) (unknown) albuterol sulfate 90 (uni ts (unknown) date) mcg/actuation aerosol unknown) inhaler 2 puff inhalation Q6H PRN (unknown) (no (unknown) (unknown) amitriptyline (units ( unknown) date) [AMITRIPTYLINE] unknown) Allergy (Unknown, Verified 12/08/22 15:36) (unknown) (no (unknown) (unknown) aspirin [ASPIRIN] (units (unknown) date) Allergy (Unknown, unknown) Verified 12/08/22 15:36) (unknown) (no (unknown) (unknown) benzocaine (units (unk nown) date) [BENZOCAINE] Allergy unknown) (Unknown, Verified 12/08/22 15:36) (unknown) (no (unknown) (unknown) benzonatate 100 mg (units (unknown) date) capsule 100 mg PO unknown) BID-TID PRN cough #60 caps 10/12/22 [Rx (unknown) (no (unknown) (unknown) biotin 1 mg capsule (unit s (unknown) date) 1 mg PO DAILY unknown) 05/26/21 [History Confirmed 12/08/22] (unknown) (no (unknown) (unknown) butamben [From (units (unknown) date) CETACAINE] Allergy unknown) (Unknown, Verified 12/08/22 15:36) (unknown) (no (unknown) (unknown) cholecalciferol (units (unknown) date) (vitamin D3) 250 mcg unknown) (10,000 unit) capsule 250 mcg PO DAILY (unknown) (no (unknown) (unknown) clonazepam 1 mg (units (unknown) date) tablet 1 - 2 mg PO unknown) BID 05/26/21 [History Confirmed 12/08/22] (unknown) (no (unknown) (unknown) dexamethasone (units ( unknown) date) [DEXAMETHASONE] unknown) Allergy (Unknown, Verified 12/08/22 15:36) (unknown) (no (unknown) (unknown) dextroamphetamine-am (uni ts (unknown) date) phetamine 10 mg unknown) tablet (Adderall) 20 mg PO BID #0 tabs (unknown) (no (unknown) (unknown) dicloxacillin (units ( unknown) date) [DICLOXACILLIN] unknown) Allergy (Unknown, Verified 12/08/22 15:36) (unknown) (no (unknown) (unknown) dihydroergocristine (unit s (unknown) date) [DIHYDROERGOCRISTINE] unknown) Allergy (Unknown, Verified 12/08/22 (unknown) (no (unknown) (unknown) dihydroergotamine (units (unknown) date) [DIHYDROERGOTAMINE] unknown) Allergy (Unknown, Verified 12/08/22 15:36) (unknown) (no (unknown) (unknown) diphenhydramine (units (unknown) date) [DIPHENHYDRAMINE] unknown) Allergy (Unknown, Verified 12/08/22 15:36) (unknown) (no (unknown) (unknown) epinephrine 0.3 (units (unknown) date) mg/0.3 mL injection, unknown) auto-injector 0.3 mg IM ONCE 05/26/21 (unknown) (no (unknown) (unknown) frovatriptan (units (u nknown) date) [FROVATRIPTAN] unknown) Allergy (Unknown, Verified 12/08/22 15:36) (unknown) (no (unknown) (unknown) have occurred. If (units (unknown) date) there are any unknown) questions, please contact the Medical Records (unknown) (no (unknown) (unknown) hydromorphone 2 mg (units (unknown) date) tablet 2 mg PO Q4-6H unknown) PRN 11/16/22 [History Confirmed (unknown) (no (unknown) (unknown) hydroxyzine (units (un known) date) [HYDROXYZINE] Allergy unknown) (Unknown, Verified 12/08/22 15:36) (unknown) (no (unknown) (unknown) ibuprofen (units (unkn own) date) [IBUPROFEN] Allergy unknown) (Unknown, Verified 12/08/22 15:36) (unknown) (no (unknown) (unknown) latex [LATEX] (units ( unknown) date) Allergy (Unknown, unknown) Verified 12/08/22 15:36) (unknown) (no (unknown) (unknown) magnesium glycinate (unit [...] (unknown) date) [METOCLOPRAMIDE] unknown) Allergy (Unknown, Verified 12/08/22 15:36) (unknown) (no (unknown) (unknown) nortriptyline (units ( unknown) date) [NORTRIPTYLINE] unknown) Allergy (Unknown, Verified 12/08/22 15:36) (unknown) (no (unknown) (unknown) occurred due to the (unit s (unknown) date) inherent limitations unknown) of voice recognition software. Please (unknown) (no (unknown) (unknown) prasterone (DHEA) (units (unknown) date) [PRASTERONE (DHEA)] unknown) Allergy (Unknown, Verified 12/08/22 15:36) (unknown) (no (unknown) (unknown) prednisone (units (unk nown) date) [PREDNISONE] Allergy unknown) (Unknown, Verified 12/08/22 15:36) (unknown) (no (unknown) (unknown) pregabalin 100 mg (units (unknown) date) capsule (Lyrica) 200 unknown) mg PO BID 05/26/21 [History Confirmed (unknown) (no (unknown) (unknown) prochlorperazine (units (unknown) date) [From COMPAZINE] unknown) Allergy (Unknown, Verified 12/08/22 15:36) (unknown) (no (unknown) (unknown) promethazine [From (units (unknown) date) PHENERGAN] Allergy unknown) (Unknown, Verified 12/08/22 15:36) (unknown) (no (unknown) (unknown) read the note (units ( unknown) date) carefully and unknown) recognize, using context, where these substitutions (unknown) (no (unknown) (unknown) rizatriptan (units (un known) date) [RIZATRIPTAN] Allergy unknown) (Unknown, Verified 12/08/22 15:36) (unknown) (no (unknown) (unknown) sertraline 50 mg (units (unknown) date) tablet (Zoloft) 50 mg unknown) PO DAILY #60 tabs 11/16/22 [Rx Confirmed (unknown) (no (unknown) (unknown) shortness of breath (unit s (unknown) date) or wheezing #8.5 unknown) grams 10/10/22 [Rx Confirmed 12/08/22] (unknown) (no (unknown) (unknown) software. Although (units (unknown) date) every effort is made unknown) to edit content, plastic block boiler reliner errors (unknown) (no (unknown) (unknown) sumatriptan (units (un known) date) [SUMATRIPTAN] Allergy unknown) (Unknown, Verified 12/08/22 15:36) (unknown) (no (unknown) (unknown) temazepam 30 mg (units (unknown) date) capsule 30 mg PO unknown) BEDTIME PRN 05/26/21 [History Confirmed (unknown) (no (unknown) (unknown) tetracaine (units (unk nown) date) [TETRACAINE] Allergy unknown) (Unknown, Verified 12/08/22 15:36) (unknown) (no (unknown) (unknown) topiramate [From (units (unknown) date) TOPAMAX] Allergy unknown) (Unknown, Verified 12/08/22 15:36) (unknown) (no (unknown) (unknown) valproic acid (units ( unknown) date) [VALPROIC ACID] unknown) Allergy (Unknown, Verified 12/08/22 15:36) (unknown) (no (unknown) (unknown) vancomycin (units (unk nown) date) [VANCOMYCIN] Allergy unknown) (Unknown, Verified 12/08/22 15:36) (unknown) (no (unknown) (unknown) verapamil (units (unkn own) date) [VERAPAMIL] Allergy unknown) (Unknown, Verified 12/08/22 15:36) (unknown) (no (unknown) (unknown) zinc sulfate 50 mg (units (unknown) date) zinc (220 mg) tablet unknown) 50 mg PO DAILY 05/26/21 [History Result panel 184 (unknown) (no (unknown) (unknown) (no value) (units (unk nown) date) unknown) (unknown) (no (unknown) (unknown) 12/08/22 (units (unkno wn) date) unknown) (unknown) (no (unknown) (unknown) 12/08/22] (units (unkn own) date) unknown) (unknown) (no (unknown) (unknown) 05/26/21 [History (units (unknown) date) Confirmed 12/08/22] unknown) (unknown) (no (unknown) (unknown) 15:36) (units (unkno wn) date) unknown) (unknown) (no (unknown) (unknown) 37 Y/O Female (units (u nknown) date) presents today for unknown) her first acupuncture treatment with Dr Lucas. (unknown) (no (unknown) (unknown) Age/Sex: 37 / F Date (uni ts (unknown) date) of Service: unknown) (unknown) (no (unknown) (unknown) Allergies (units (unkn own) date) unknown) (unknown) (no (unknown) (unknown) [place] [address] (unit s (unknown) date) unknown) (unknown) (no (unknown) (unknown) Anesthesia (units (unk nown) date) unknown) (unknown) (no (unknown) (unknown) Ankle pain (units (unk nown) date) unknown) (unknown) (no (unknown) (unknown) Anxiety (units (unkno wn) date) unknown) (unknown) (no (unknown) (unknown) Asthma (units (unkno wn) date) unknown) (unknown) (no (unknown) (unknown) Attending Dr: (units ( unknown) date) Laurent Lucas MD unknown) (unknown) (no (unknown) (unknown) Bibi is a 37y (units (unknown) date) female with history unknown) of ADHD, anxiety depression, chronic pain (unknown) (no (unknown) (unknown) BLISTERS AT SITE (units (unknown) date) unknown) (unknown) (no (unknown) (unknown) Cardiac arrhythmia (units (unknown) date) unknown) (unknown) (no (unknown) (unknown) Cervical cyst (units ( unknown) date) unknown) (unknown) (no (unknown) (unknown) Chicken pox (units (un known) date) unknown) (unknown) (no (unknown) (unknown) Chief Complaint (units (unknown) date) unknown) (unknown) (no (unknown) (unknown) Chief Complaint: (units (unknown) date) Follow-up for unknown) multiple concerns (unknown) (no (unknown) (unknown) Confirmed 12/08/22] (unit s (unknown) date) unknown) (unknown) (no (unknown) (unknown) : 1985 (units (unknown) date) Acct:[id number] unknown) (unknown) (no (unknown) (unknown) Depression (units (unk nown) date) unknown) (unknown) (no (unknown) (unknown) Dept at (units (unkno wn) date) . unknown) (unknown) (no (unknown) (unknown) Details: (units (unkno wn) date) unknown) (unknown) (no (unknown) (unknown) Documented By: (units (unknown) date) Laurent Lucas MD unknown) 12/08/22 1527 (unknown) (no (unknown) (unknown) Draft (units (unkno wn) date) unknown) (unknown) (no (unknown) (unknown) Endometriosis (units ( unknown) date) unknown) (unknown) (no (unknown) (unknown) Family History (units (unknown) date) (Reviewed 11/24/22 @ unknown) 12:59 by Marilyn Leigh DO) (unknown) (no (unknown) (unknown) Family Practice (units [...] wn) date) unknown) (unknown) (no (unknown) (unknown) Hearing [...] Intake performed by: (uni ts (unknown) date) Dorina Griffiths unknown) (unknown) (no (unknown) (unknown) Intake (units (unkno wn) date) unknown) (unknown) (no (unknown) (unknown) Intake- Clincial (units (unknown) date) Staff unknown) (unknown) (no (unknown) (unknown) Interstitial (units (u nknown) date) cystitis unknown) (unknown) (no (unknown) (unknown) Kidney stones (units ( unknown) date) unknown) (unknown) (no (unknown) (unknown) Loc: [facility] (units (unkno wn) date) unknown) (unknown) (no (unknown) (unknown) [id number] (units (unk nown) date) unknown) (unknown) (no (unknown) (unknown) Medical History (units (unknown) date) (Reviewed 11/24/22 @ unknown) 12:59 by Marilyn Leigh DO) (unknown) (no (unknown) (unknown) Medications (units (un [...] ts (unknown) date) Allergy (Mild, unknown) Uncoded 12/08/22 15:36) (unknown) (no (unknown) (unknown) PTSD (post-traumatic (uni [...] (unknown) (unknown) Surgical History (units (unknown) date) (Reviewed 11/24/22 @ unknown) 12:59 by Marilyn Leigh DO) (unknown) (no (unknown) (unknown) TIA (transient (units [...] (unknown) (unknown) Visit Reasons: (units (unknown) date) acupuncture 04 unknown) (unknown) (no (unknown) (unknown) [History Confirmed (units (unknown) date) 12/08/22] unknown) (unknown) (no (unknown) (unknown) acetaminophen (units ( unknown) date) [ACETAMINOPHEN] unknown) Allergy (Unknown, Verified 12/08/22 15:36) (unknown) (no (unknown) (unknown) adhesive [ADHESIVE] (unit s (unknown) date) Allergy (Unknown, unknown) Verified 12/08/22 15:36) (unknown) (no (unknown) (unknown) albuterol sulfate 90 (uni ts (unknown) date) mcg/actuation aerosol unknown) inhaler 2 puff inhalation Q6H PRN (unknown) (no (unknown) (unknown) amitriptyline (units ( unknown) date) [AMITRIPTYLINE] unknown) Allergy (Unknown, Verified 12/08/22 15:36) (unknown) (no (unknown) (unknown) aspirin [ASPIRIN] (units (unknown) date) Allergy (Unknown, unknown) Verified 12/08/22 15:36) (unknown) (no (unknown) (unknown) benzocaine (units (unk nown) date) [BENZOCAINE] Allergy unknown) (Unknown, Verified 12/08/22 15:36) (unknown) (no (unknown) (unknown) benzonatate 100 mg (units (unknown) date) capsule 100 mg PO unknown) BID-TID PRN cough #60 caps 10/12/22 [Rx (unknown) (no (unknown) (unknown) biotin 1 mg capsule (unit s (unknown) date) 1 mg PO DAILY unknown) 05/26/21 [History Confirmed 12/08/22] (unknown) (no (unknown) (unknown) butamben [From (units (unknown) date) CETACAINE] Allergy unknown) (Unknown, Verified 12/08/22 15:36) (unknown) (no (unknown) (unknown) cholecalciferol (units (unknown) date) (vitamin D3) 250 mcg unknown) (10,000 unit) capsule 250 mcg PO DAILY (unknown) (no (unknown) (unknown) clonazepam 1 mg (units (unknown) date) tablet 1 - 2 mg PO unknown) BID 05/26/21 [History Confirmed 12/08/22] (unknown) (no (unknown) (unknown) dexamethasone (units ( unknown) date) [DEXAMETHASONE] unknown) Allergy (Unknown, Verified 12/08/22 15:36) (unknown) (no (unknown) (unknown) dextroamphetamine-am (uni ts (unknown) date) phetamine 10 mg unknown) tablet (Adderall) 20 mg PO BID #0 tabs (unknown) (no (unknown) (unknown) dicloxacillin (units ( unknown) date) [DICLOXACILLIN] unknown) Allergy (Unknown, Verified 12/08/22 15:36) (unknown) (no (unknown) (unknown) dihydroergocristine (unit s (unknown) date) [DIHYDROERGOCRISTINE] unknown) Allergy (Unknown, Verified 12/08/22 (unknown) (no (unknown) (unknown) dihydroergotamine (units (unknown) date) [DIHYDROERGOTAMINE] unknown) Allergy (Unknown, Verified 12/08/22 15:36) (unknown) (no (unknown) (unknown) diphenhydramine (units (unknown) date) [DIPHENHYDRAMINE] unknown) Allergy (Unknown, Verified 12/08/22 15:36) (unknown) (no (unknown) (unknown) epinephrine 0.3 (units (unknown) date) mg/0.3 mL injection, unknown) auto-injector 0.3 mg IM ONCE 05/26/21 (unknown) (no (unknown) (unknown) frovatriptan (units (u nknown) date) [FROVATRIPTAN] unknown) Allergy (Unknown, Verified 12/08/22 15:36) (unknown) (no (unknown) (unknown) have occurred. If (units (unknown) date) there are any unknown) questions, please contact the Medical Records (unknown) (no (unknown) (unknown) having intermittent (units (unknown) date) right upper quadrant unknown) abdominal discomfort as well as periods (unknown) (no (unknown) (unknown) history of gastric (units (unknown) date) ulcers. Also unknown) continues to have chronic pain in significant (unknown) (no (unknown) (unknown) hydromorphone 2 mg (units (unknown) date) tablet 2 mg PO Q4-6H unknown) PRN 11/16/22 [History Confirmed (unknown) (no (unknown) (unknown) hydroxyzine (units (un known) date) [HYDROXYZINE] Allergy unknown) (Unknown, Verified 12/08/22 15:36) (unknown) (no (unknown) (unknown) ibuprofen (units (unkn own) date) [IBUPROFEN] Allergy unknown) (Unknown, Verified 12/08/22 15:36) (unknown) (no (unknown) (unknown) latex [LATEX] (units ( unknown) date) Allergy (Unknown, unknown) Verified 12/08/22 15:36) (unknown) (no (unknown) (unknown) magnesium glycinate (unit [...] (unknown) date) [METOCLOPRAMIDE] unknown) Allergy (Unknown, Verified 12/08/22 15:36) (unknown) (no (unknown) (unknown) nortriptyline (units ( unknown) date) [NORTRIPTYLINE] unknown) Allergy (Unknown, Verified 12/08/22 15:36) (unknown) (no (unknown) (unknown) occurred due to the (unit s (unknown) date) inherent limitations unknown) of voice recognition software. Please (unknown) (no (unknown) (unknown) of diarrhea followed (uni ts (unknown) date) by periods of unknown) constipation. Also has noted some blood in (unknown) (no (unknown) (unknown) prasterone (DHEA) (units (unknown) date) [PRASTERONE (DHEA)] unknown) Allergy (Unknown, Verified 12/08/22 15:36) (unknown) (no (unknown) (unknown) prednisone (units (unk nown) date) [PREDNISONE] Allergy unknown) (Unknown, Verified 12/08/22 15:36) (unknown) (no (unknown) (unknown) pregabalin 100 mg (units (unknown) date) capsule (Lyrica) 200 unknown) mg PO BID 05/26/21 [History Confirmed (unknown) (no (unknown) (unknown) prochlorperazine (units (unknown) date) [From COMPAZINE] unknown) Allergy (Unknown, Verified 12/08/22 15:36) (unknown) (no (unknown) (unknown) promethazine [From (units (unknown) date) PHENERGAN] Allergy unknown) (Unknown, Verified 12/08/22 15:36) (unknown) (no (unknown) (unknown) read the note (units ( unknown) date) carefully and unknown) recognize, using context, where these substitutions (unknown) (no (unknown) (unknown) rizatriptan (units (un known) date) [RIZATRIPTAN] Allergy unknown) (Unknown, Verified 12/08/22 15:36) (unknown) (no (unknown) (unknown) sciatica enough to (units (unknown) date) require her to be in unknown) wheelchair. (unknown) (no (unknown) (unknown) sertraline 50 mg (units (unknown) date) tablet (Zoloft) 50 mg unknown) PO DAILY #60 tabs 11/16/22 [Rx Confirmed (unknown) (no (unknown) (unknown) she still has some (units (unknown) date) blood that she coughs unknown) up in the morning time. Does continue (unknown) (no (unknown) (unknown) shortness of breath (unit s (unknown) date) or wheezing #8.5 unknown) grams 10/10/22 [Rx Confirmed 12/08/22] (unknown) (no (unknown) (unknown) software. 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 She does have (uni ts (unknown) date) upcoming appointment unknown) with Gastroenterology. Reports (unknown) (no (unknown) (unknown) sumatriptan (units (un known) date) [SUMATRIPTAN] Allergy unknown) (Unknown, Verified 12/08/22 15:36) (unknown) (no (unknown) (unknown) syndrome, (units (unkn own) date) fibromyalgia who is unknown) here for multiple concerns. She does note that (unknown) (no (unknown) (unknown) temazepam 30 mg (units (unknown) date) capsule 30 mg PO unknown) BEDTIME PRN 05/26/21 [History Confirmed (unknown) (no (unknown) (unknown) tetracaine (units (unk nown) date) [TETRACAINE] Allergy unknown) (Unknown, Verified 12/08/22 15:36) (unknown) (no (unknown) (unknown) topiramate [From (units (unknown) date) TOPAMAX] Allergy unknown) (Unknown, Verified 12/08/22 15:36) (unknown) (no (unknown) (unknown) valproic acid (units ( unknown) date) [VALPROIC ACID] unknown) Allergy (Unknown, Verified 12/08/22 15:36) (unknown) (no (unknown) (unknown) vancomycin (units (unk nown) date) [VANCOMYCIN] Allergy unknown) (Unknown, Verified 12/08/22 15:36) (unknown) (no (unknown) (unknown) verapamil (units (unkn own) date) [VERAPAMIL] Allergy unknown) (Unknown, Verified 12/08/22 15:36) (unknown) (no (unknown) (unknown) zinc sulfate 50 mg (units (unknown) date) zinc (220 mg) tablet unknown) 50 mg PO DAILY 05/26/21 [History Result panel 185 (unknown) (no (unknown) (unknown) (no value) (units (unk nown) date) unknown) (unknown) (no (unknown) (unknown) 12/08/22 (units (unkno wn) date) unknown) (unknown) (no (unknown) (unknown) 12/08/22] (units (unkn own) date) unknown) (unknown) (no (unknown) (unknown) 05/26/21 [History (units (unknown) date) Confirmed 12/08/22] unknown) (unknown) (no (unknown) (unknown) 15:36) (units (unkno wn) date) unknown) (unknown) (no (unknown) (unknown) 16:05 (units (unkno wn) date) unknown) (unknown) (no (unknown) (unknown) 37 Y/O Female (units (u nknown) date) presents today for unknown) her first acupuncture treatment with Dr Lucas. (unknown) (no (unknown) (unknown) Age/Sex: 37 / F Date (uni ts (unknown) date) of Service: unknown) (unknown) (no (unknown) (unknown) Allergies (units (unkn own) date) unknown) (unknown) (no (unknown) (unknown) [place] [address] (unit s (unknown) date) unknown) (unknown) (no (unknown) (unknown) Anesthesia (units (unk nown) date) unknown) (unknown) (no (unknown) (unknown) Ankle pain (units (unk nown) date) unknown) (unknown) (no (unknown) (unknown) Anxiety (units (unkno wn) date) unknown) (unknown) (no (unknown) (unknown) Asthma (units (unkno wn) date) unknown) (unknown) (no (unknown) (unknown) Attending Dr: (units ( unknown) date) Laurent Lucas MD unknown) (unknown) (no (unknown) (unknown) Bibi is a 37y (units (unknown) date) female with history unknown) of ADHD, anxiety depression, chronic pain (unknown) (no (unknown) (unknown) BLISTERS AT SITE (units (unknown) date) unknown) (unknown) (no (unknown) (unknown) BP 120/90 (units (unkn own) date) unknown) (unknown) (no (unknown) (unknown) Blood Pressure (units (unknown) date) Location Rt brachial unknown) (unknown) (no (unknown) (unknown) Cardiac arrhythmia (units (unknown) date) unknown) (unknown) (no (unknown) (unknown) Cervical cyst (units ( unknown) date) unknown) (unknown) (no (unknown) (unknown) Chicken pox (units (un known) date) unknown) (unknown) (no (unknown) (unknown) Chief Complaint (units (unknown) date) unknown) (unknown) (no (unknown) (unknown) Chief Complaint: (units (unknown) date) Follow-up for unknown) multiple concerns (unknown) (no (unknown) (unknown) Confirmed 12/08/22] (unit s (unknown) date) unknown) (unknown) (no (unknown) (unknown) : 1985 (units (unknown) date) Acct:[id number] unknown) (unknown) (no (unknown) (unknown) Depression (units (unk nown) date) unknown) (unknown) (no (unknown) (unknown) Dept at (units (unkno wn) date) . unknown) (unknown) (no (unknown) (unknown) Details: (units (unkno wn) date) unknown) (unknown) (no (unknown) (unknown) Documented By: (units (unknown) date) Laurent Lucas MD unknown) 12/08/22 1527 (unknown) (no (unknown) (unknown) Draft (units (unkno wn) date) unknown) (unknown) (no (unknown) (unknown) Endometriosis (units ( unknown) date) unknown) (unknown) (no (unknown) (unknown) Family History (units (unknown) date) (Reviewed 11/24/22 @ unknown) 12:59 by Marilyn Leigh DO) (unknown) (no (unknown) (unknown) Family Practice (units [...] wn) date) unknown) (unknown) (no (unknown) (unknown) Hearing [...] Intake performed by: (uni ts (unknown) date) Dorina Griffiths unknown) (unknown) (no (unknown) (unknown) Intake (units (unkno wn) date) unknown) (unknown) (no (unknown) (unknown) Intake- Clincial (units (unknown) date) Staff unknown) (unknown) (no (unknown) (unknown) Interstitial (units (u nknown) date) cystitis unknown) (unknown) (no (unknown) (unknown) Kidney stones (units ( unknown) date) unknown) (unknown) (no (unknown) (unknown) Loc: [facility] (units (unkno wn) date) unknown) (unknown) (no (unknown) (unknown) [id number] (units (unk nown) date) unknown) (unknown) (no (unknown) (unknown) Medical History (units (unknown) date) (Reviewed 11/24/22 @ unknown) 12:59 by Marilyn Leigh DO) (unknown) (no (unknown) (unknown) Medications (units (un [...] ts (unknown) date) Allergy (Mild, unknown) Uncoded 12/08/22 15:36) (unknown) (no (unknown) (unknown) PTSD (post-traumatic (uni [...] (unknown) (unknown) Surgical History (units (unknown) date) (Reviewed 11/24/22 @ unknown) 12:59 by Marilyn Leigh DO) (unknown) (no (unknown) (unknown) TIA (transient (units [...] (unknown) (unknown) Visit Reasons: (units (unknown) date) acupuncture 04 unknown) (unknown) (no (unknown) (unknown) Vitals (units (unkno wn) date) unknown) (unknown) (no (unknown) (unknown) [History Confirmed (units (unknown) date) 12/08/22] unknown) (unknown) (no (unknown) (unknown) acetaminophen (units ( unknown) date) [ACETAMINOPHEN] unknown) Allergy (Unknown, Verified 12/08/22 15:36) (unknown) (no (unknown) (unknown) adhesive [ADHESIVE] (unit s (unknown) date) Allergy (Unknown, unknown) Verified 12/08/22 15:36) (unknown) (no (unknown) (unknown) albuterol sulfate 90 (uni ts (unknown) date) mcg/actuation aerosol unknown) inhaler 2 puff inhalation Q6H PRN (unknown) (no (unknown) (unknown) amitriptyline (units ( unknown) date) [AMITRIPTYLINE] unknown) Allergy (Unknown, Verified 12/08/22 15:36) (unknown) (no (unknown) (unknown) aspirin [ASPIRIN] (units (unknown) date) Allergy (Unknown, unknown) Verified 12/08/22 15:36) (unknown) (no (unknown) (unknown) benzocaine (units (unk nown) date) [BENZOCAINE] Allergy unknown) (Unknown, Verified 12/08/22 15:36) (unknown) (no (unknown) (unknown) benzonatate 100 mg (units (unknown) date) capsule 100 mg PO unknown) BID-TID PRN cough #60 caps 10/12/22 [Rx (unknown) (no (unknown) (unknown) biotin 1 mg capsule (unit s (unknown) date) 1 mg PO DAILY unknown) 05/26/21 [History Confirmed 12/08/22] (unknown) (no (unknown) (unknown) butamben [From (units (unknown) date) CETACAINE] Allergy unknown) (Unknown, Verified 12/08/22 15:36) (unknown) (no (unknown) (unknown) cholecalciferol (units (unknown) date) (vitamin D3) 250 mcg unknown) (10,000 unit) capsule 250 mcg PO DAILY (unknown) (no (unknown) (unknown) clonazepam 1 mg (units (unknown) date) tablet 1 - 2 mg PO unknown) BID 05/26/21 [History Confirmed 12/08/22] (unknown) (no (unknown) (unknown) dexamethasone (units ( unknown) date) [DEXAMETHASONE] unknown) Allergy (Unknown, Verified 12/08/22 15:36) (unknown) (no (unknown) (unknown) dextroamphetamine-am (uni ts (unknown) date) phetamine 10 mg unknown) tablet (Adderall) 20 mg PO BID #0 tabs (unknown) (no (unknown) (unknown) dicloxacillin (units ( unknown) date) [DICLOXACILLIN] unknown) Allergy (Unknown, Verified 12/08/22 15:36) (unknown) (no (unknown) (unknown) dihydroergocristine (unit s (unknown) date) [DIHYDROERGOCRISTINE] unknown) Allergy (Unknown, Verified 12/08/22 (unknown) (no (unknown) (unknown) dihydroergotamine (units (unknown) date) [DIHYDROERGOTAMINE] unknown) Allergy (Unknown, Verified 12/08/22 15:36) (unknown) (no (unknown) (unknown) diphenhydramine (units (unknown) date) [DIPHENHYDRAMINE] unknown) Allergy (Unknown, Verified 12/08/22 15:36) (unknown) (no (unknown) (unknown) epinephrine 0.3 (units (unknown) date) mg/0.3 mL injection, unknown) auto-injector 0.3 mg IM ONCE 05/26/21 (unknown) (no (unknown) (unknown) frovatriptan (units (u nknown) date) [FROVATRIPTAN] unknown) Allergy (Unknown, Verified 12/08/22 15:36) (unknown) (no (unknown) (unknown) have occurred. If (units (unknown) date) there are any unknown) questions, please contact the Medical Records (unknown) (no (unknown) (unknown) having intermittent (units (unknown) date) right upper quadrant unknown) abdominal discomfort as well as periods (unknown) (no (unknown) (unknown) history of gastric (units (unknown) date) ulcers. Also unknown) continues to have chronic pain in significant (unknown) (no (unknown) (unknown) hydromorphone 2 mg (units (unknown) date) tablet 2 mg PO Q4-6H unknown) PRN 11/16/22 [History Confirmed (unknown) (no (unknown) (unknown) hydroxyzine (units (un known) date) [HYDROXYZINE] Allergy unknown) (Unknown, Verified 12/08/22 15:36) (unknown) (no (unknown) (unknown) ibuprofen (units (unkn own) date) [IBUPROFEN] Allergy unknown) (Unknown, Verified 12/08/22 15:36) (unknown) (no (unknown) (unknown) latex [LATEX] (units ( unknown) date) Allergy (Unknown, unknown) Verified 12/08/22 15:36) (unknown) (no (unknown) (unknown) magnesium glycinate (unit [...] (unknown) date) [METOCLOPRAMIDE] unknown) Allergy (Unknown, Verified 12/08/22 15:36) (unknown) (no (unknown) (unknown) nortriptyline (units ( unknown) date) [NORTRIPTYLINE] unknown) Allergy (Unknown, Verified 12/08/22 15:36) (unknown) (no (unknown) (unknown) occurred due to the (unit s (unknown) date) inherent limitations unknown) of voice recognition software. Please (unknown) (no (unknown) (unknown) of diarrhea followed (uni ts (unknown) date) by periods of unknown) constipation. Also has noted some blood in (unknown) (no (unknown) (unknown) prasterone (DHEA) (units (unknown) date) [PRASTERONE (DHEA)] unknown) Allergy (Unknown, Verified 12/08/22 15:36) (unknown) (no (unknown) (unknown) prednisone (units (unk nown) date) [PREDNISONE] Allergy unknown) (Unknown, Verified 12/08/22 15:36) (unknown) (no (unknown) (unknown) pregabalin 100 mg (units (unknown) date) capsule (Lyrica) 200 unknown) mg PO BID 05/26/21 [History Confirmed (unknown) (no (unknown) (unknown) prochlorperazine (units (unknown) date) [From COMPAZINE] unknown) Allergy (Unknown, Verified 12/08/22 15:36) (unknown) (no (unknown) (unknown) promethazine [From (units (unknown) date) PHENERGAN] Allergy unknown) (Unknown, Verified 12/08/22 15:36) (unknown) (no (unknown) (unknown) read the note (units ( unknown) date) carefully and unknown) recognize, using context, where these substitutions (unknown) (no (unknown) (unknown) rizatriptan (units (un known) date) [RIZATRIPTAN] Allergy unknown) (Unknown, Verified 12/08/22 15:36) (unknown) (no (unknown) (unknown) sciatica enough to (units (unknown) date) require her to be in unknown) wheelchair. (unknown) (no (unknown) (unknown) sertraline 50 mg (units (unknown) date) tablet (Zoloft) 50 mg unknown) PO DAILY #60 tabs 11/16/22 [Rx Confirmed (unknown) (no (unknown) (unknown) she still has some (units (unknown) date) blood that she coughs unknown) up in the morning time. Does continue (unknown) (no (unknown) (unknown) shortness of breath (unit s (unknown) date) or wheezing #8.5 unknown) grams 10/10/22 [Rx Confirmed 12/08/22] (unknown) (no (unknown) (unknown) software. 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 She does have (uni ts (unknown) date) upcoming appointment unknown) with Gastroenterology. Reports (unknown) (no (unknown) (unknown) sumatriptan (units (un known) date) [SUMATRIPTAN] Allergy unknown) (Unknown, Verified 12/08/22 15:36) (unknown) (no (unknown) (unknown) syndrome, (units (unkn own) date) fibromyalgia who is unknown) here for multiple concerns. She does note that (unknown) (no (unknown) (unknown) temazepam 30 mg (units (unknown) date) capsule 30 mg PO unknown) BEDTIME PRN 05/26/21 [History Confirmed (unknown) (no (unknown) (unknown) tetracaine (units (unk nown) date) [TETRACAINE] Allergy unknown) (Unknown, Verified 12/08/22 15:36) (unknown) (no (unknown) (unknown) topiramate [From (units (unknown) date) TOPAMAX] Allergy unknown) (Unknown, Verified 12/08/22 15:36) (unknown) (no (unknown) (unknown) valproic acid (units ( unknown) date) [VALPROIC ACID] unknown) Allergy (Unknown, Verified 12/08/22 15:36) (unknown) (no (unknown) (unknown) vancomycin (units (unk nown) date) [VANCOMYCIN] Allergy unknown) (Unknown, Verified 12/08/22 15:36) (unknown) (no (unknown) (unknown) verapamil (units (unkn own) date) [VERAPAMIL] Allergy unknown) (Unknown, Verified 12/08/22 15:36) (unknown) (no (unknown) (unknown) zinc sulfate 50 mg (units (unknown) date) zinc (220 mg) tablet unknown) 50 mg PO DAILY 05/26/21 [History Result panel 186 (unknown) (no (unknown) (unknown) (no value) (units (unk nown) date) unknown) (unknown) (no (unknown) (unknown) (1) Chronic low back (uni ts (unknown) date) pain with bilateral unknown) sciatica: (unknown) (no (unknown) (unknown) (2) Right upper (units (unknown) date) quadrant pain: unknown) (unknown) (no (unknown) (unknown) (3) GI bleeding: (units (unknown) date) unknown) (unknown) (no (unknown) (unknown) (4) Gastric ulcer: (units (unknown) date) unknown) (unknown) (no (unknown) (unknown) (5) PTSD (units (unkno wn) date) (post-traumatic unknown) stress disorder): (unknown) (no (unknown) (unknown) (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: unknown) (unknown) (no (unknown) (unknown) (7) Hemoptysis: (units (unknown) date) unknown) (unknown) (no (unknown) (unknown) (8) 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: (unknown) (no (unknown) (unknown) 12/08/22 1705 (units ( unknown) date) unknown) (unknown) (no (unknown) (unknown) 12/08/22 (units (unkno wn) date) unknown) (unknown) (no (unknown) (unknown) 12/08/22] (units (unkn own) date) unknown) (unknown) (no (unknown) (unknown) 05/26/21 [History (units (unknown) date) Confirmed 12/08/22] unknown) (unknown) (no (unknown) (unknown) 15:36) (units (unkno wn) date) unknown) (unknown) (no (unknown) (unknown) 16:05 (units (unkno wn) date) unknown) (unknown) (no (unknown) (unknown) 37 Y/O Female (units (u nknown) date) presents today for unknown) her first acupuncture treatment with Dr Lucas. (unknown) (no (unknown) (unknown) Acupuncture consent (unit s (unknown) date) in chart. Discussed unknown) after care. (unknown) (no (unknown) (unknown) Age/Sex: 37 / F Date (uni ts (unknown) date) of Service: unknown) (unknown) (no (unknown) (unknown) All questions (units ( unknown) date) answered. Patient is unknown) in agreement with plan. (unknown) (no (unknown) (unknown) Allergies (units (unkn own) date) unknown) (unknown) (no (unknown) (unknown) [place] [address] (unit s (unknown) date) unknown) (unknown) (no (unknown) (unknown) Anesthesia (units (unk nown) date) unknown) (unknown) (no (unknown) (unknown) Ankle pain (units (unk nown) date) unknown) (unknown) (no (unknown) (unknown) Anxiety (units (unkno wn) date) unknown) (unknown) (no (unknown) (unknown) Appearance: (units (un known) date) unknown) (unknown) (no (unknown) (unknown) Assessment + Plan (units (unknown) date) unknown) (unknown) (no (unknown) (unknown) Asthma (units (unkno wn) date) unknown) (unknown) (no (unknown) (unknown) Attending Dr: (units ( unknown) date) Laurent Lucas MD unknown) (unknown) (no (unknown) (unknown) Bibi is a 37y (units (unknown) date) female with history unknown) of ADHD, anxiety depression, chronic pain (unknown) (no (unknown) (unknown) BLISTERS AT SITE (units (unknown) date) unknown) (unknown) (no (unknown) (unknown) BP 120/90 (units (unkn own) date) unknown) (unknown) (no (unknown) (unknown) Back pain (units (unkn own) date) laterality: bilateral unknown) Qualified Code(s): M54.42 - Lumbago (unknown) (no (unknown) (unknown) Bilateral auricular (unit s (unknown) date) [place], point zero, unknown) lumbar spine for 12 minutes (unknown) (no (unknown) (unknown) Blood Pressure (units (unknown) date) Location Rt brachial unknown) (unknown) (no (unknown) (unknown) Cardiac arrhythmia (units (unknown) date) unknown) (unknown) (no (unknown) (unknown) Cervical cyst (units ( unknown) date) unknown) (unknown) (no (unknown) (unknown) Chicken pox (units (un known) date) unknown) (unknown) (no (unknown) (unknown) Chief Complaint (units (unknown) date) unknown) (unknown) (no (unknown) (unknown) Chief Complaint: (units (unknown) date) Follow-up for unknown) multiple concerns and acupuncture (unknown) (no (unknown) (unknown) Cognition: (units (unk nown) date) unknown) (unknown) (no (unknown) (unknown) Confirmed 12/08/22] (unit s (unknown) date) unknown) (unknown) (no (unknown) (unknown) Const General: (units (unknown) date) pleasant, sitting in unknown) wheelchair. Her is here with her. (unknown) (no (unknown) (unknown) : 1985 (units (unknown) date) Acct:[id number] unknown) (unknown) (no (unknown) (unknown) Depression (units (unk nown) date) unknown) (unknown) (no (unknown) (unknown) Dept at (units (unkno wn) date) . unknown) (unknown) (no (unknown) (unknown) Details: (units (unkno wn) date) unknown) (unknown) (no (unknown) (unknown) Documented By: (units (unknown) date) Laurent Lucas MD unknown) 12/08/22 1527 (unknown) (no (unknown) (unknown) Effort + Inspection: (uni ts (unknown) date) unknown) (unknown) (no (unknown) (unknown) Endometriosis (units ( unknown) date) unknown) (unknown) (no (unknown) (unknown) Exam Narrative (units (unknown) date) unknown) (unknown) (no (unknown) (unknown) Exam Narrative: (units (unknown) date) unknown) (unknown) (no (unknown) (unknown) Exam (units (unkno wn) date) unknown) (unknown) (no (unknown) (unknown) Extrem (units (unkno wn) date) unknown) (unknown) (no (unknown) (unknown) Family History (units (unknown) date) (Reviewed 11/24/22 @ unknown) 12:59 by Marilyn Leigh DO) (unknown) (no (unknown) (unknown) Family Practice (units [...] date) unknown) (unknown) (no (unknown) (unknown) GI bleed (units (unkno wn) date) type/associated unknown) pathology: unspecified gastrointestinal (unknown) (no (unknown) (unknown) GI bleeding (units (un known) date) unknown) (unknown) (no (unknown) (unknown) Gastric ulcer (units ( unknown) date) chronicity: unknown) unspecified ulcer chronicity Gastric ulcer (unknown) (no (unknown) (unknown) Gastric ulcer (units ( unknown) date) unknown) (unknown) (no (unknown) (unknown) General: (units (unkno wn) date) unknown) (unknown) (no (unknown) (unknown) Grandfather (uni ts (unknown) date) Stroke unknown) (unknown) (no (unknown) (unknown) Grandmother Breast (units (unknown) date) cancer unknown) (unknown) (no (unknown) (unknown) Grandmother (uni ts (unknown) date) Stroke unknown) (unknown) (no (unknown) (unknown) HPI (units (unkno wn) date) unknown) (unknown) (no (unknown) (unknown) Headache (units (unkno wn) date) unknown) (unknown) (no (unknown) (unknown) Hearing [...] Intake performed by: (uni ts (unknown) date) Dorina Griffiths unknown) (unknown) (no (unknown) (unknown) Intake (units (unkno wn) date) unknown) (unknown) (no (unknown) (unknown) Intake- Clincial (units (unknown) date) Staff unknown) (unknown) (no (unknown) (unknown) Interstitial (units (u nknown) date) cystitis unknown) (unknown) (no (unknown) (unknown) Kidney stones (units ( unknown) date) unknown) (unknown) (no (unknown) (unknown) Loc: [facility] (units (unkno wn) date) unknown) (unknown) (no (unknown) (unknown) [id number] (units (unk nown) date) unknown) (unknown) (no (unknown) (unknown) Medical History (units (unknown) date) (Reviewed 11/24/22 @ unknown) 12:59 by Marilyn Leigh DO) (unknown) (no (unknown) (unknown) Medications (units (un known) date) unknown) (unknown) (no (unknown) (unknown) Mental health (units ( unknown) date) problem unknown) (unknown) (no (unknown) (unknown) Migraines (units (unkn own) date) unknown) (unknown) (no (unknown) (unknown) Mother (units (unknown) date) Cancer unknown) (unknown) (no (unknown) (unknown) Neuro (units (unkno wn) date) unknown) (unknown) (no (unknown) (unknown) Orientation: alert, (unit s (unknown) date) awake unknown) (unknown) (no (unknown) (unknown) Other chronic pain (units (unknown) date) unknown) (unknown) (no (unknown) (unknown) Ovarian cyst (units (u nknown) date) unknown) (unknown) (no (unknown) (unknown) PFSH (units (unkno wn) date) unknown) (unknown) (no (unknown) (unknown) PLASTIC MEDICAL TAPE (uni ts (unknown) date) Allergy (Mild, unknown) Uncoded 12/08/22 15:36) (unknown) (no (unknown) (unknown) PTSD (post-traumatic (uni ts (unknown) date) stress disorder) unknown) (unknown) (no (unknown) (unknown) Painful menstrual (units (unknown) date) periods unknown) (unknown) (no (unknown) (unknown) Patient: (units (unkno wn) date) Bibi Arreola W unknown) MR#: (unknown) (no (unknown) (unknown) Plan (units (unkno wn) date) unknown) (unknown) (no (unknown) (unknown) Position Sitting (units (unknown) date) unknown) (unknown) (no (unknown) (unknown) Psych (units (unkno wn) date) unknown) (unknown) (no (unknown) (unknown) Qualified Code(s): (units (unknown) date) K25.9 - Gastric unknown) ulcer, unspecified as acute or chronic, (unknown) (no (unknown) (unknown) Qualifiers: (units (un known) date) unknown) (unknown) (no (unknown) (unknown) Reason For Visit (units (unknown) date) unknown) (unknown) (no (unknown) (unknown) Resp (units (unkno wn) date) unknown) (unknown) (no (unknown) (unknown) Ruptured tympanic (units (unknown) date) membrane unknown) (unknown) (no (unknown) (unknown) She does note that (units (unknown) date) she still has some unknown) blood that she coughs up in the morning (unknown) (no (unknown) (unknown) Shoulder pain (units ( unknown) date) () unknown) (unknown) (no (unknown) (unknown) Signed By: (units (unk nown) date) <Electronically unknown) signed by Laurent Lucas MD> (unknown) (no (unknown) (unknown) Signed (units (unkno wn) date) unknown) (unknown) (no (unknown) (unknown) Sitting in (units (unk nown) date) wheelchair unknown) (unknown) (no (unknown) (unknown) Smoking Status: (units (unknown) date) Former smoker unknown) (unknown) (no (unknown) (unknown) Status: Acute (units ( unknown) date) unknown) (unknown) (no (unknown) (unknown) Status: None (units (u nknown) date) unknown) (unknown) (no (unknown) (unknown) Stroke (units (unkno wn) date) unknown) (unknown) (no (unknown) (unknown) Surgical History (units (unknown) date) (Reviewed 11/24/22 @ unknown) 12:59 by Marilyn Leigh DO) (unknown) (no (unknown) (unknown) TIA (transient (units [...] (unknown) (unknown) Visit Reasons: (units (unknown) date) acupuncture 04 unknown) (unknown) (no (unknown) (unknown) Vitals (units (unkno wn) date) unknown) (unknown) (no (unknown) (unknown) [History Confirmed (units (unknown) date) 12/08/22] unknown) (unknown) (no (unknown) (unknown) [Koffmann Cocktail (units (unknown) date) for 15 minutes] unknown) (unknown) (no (unknown) (unknown) acetaminophen (units ( unknown) date) [ACETAMINOPHEN] unknown) Allergy (Unknown, Verified 12/08/22 15:36) (unknown) (no (unknown) (unknown) adhesive [ADHESIVE] (unit s (unknown) date) Allergy (Unknown, unknown) Verified 12/08/22 15:36) (unknown) (no (unknown) (unknown) affect and normal (units (unknown) date) thought content unknown) (unknown) (no (unknown) (unknown) albuterol sulfate 90 (uni ts (unknown) date) mcg/actuation aerosol unknown) inhaler 2 puff inhalation Q6H PRN (unknown) (no (unknown) (unknown) amitriptyline (units ( unknown) date) [AMITRIPTYLINE] unknown) Allergy (Unknown, Verified 12/08/22 15:36) (unknown) (no (unknown) (unknown) aspirin [ASPIRIN] (units (unknown) date) Allergy (Unknown, unknown) Verified 12/08/22 15:36) (unknown) (no (unknown) (unknown) benzocaine (units (unk nown) date) [BENZOCAINE] Allergy unknown) (Unknown, Verified 12/08/22 15:36) (unknown) (no (unknown) (unknown) benzonatate 100 mg (units (unknown) date) capsule 100 mg PO unknown) BID-TID PRN cough #60 caps 10/12/22 [Rx (unknown) (no (unknown) (unknown) biotin 1 mg capsule (unit s (unknown) date) 1 mg PO DAILY unknown) 05/26/21 [History Confirmed 12/08/22] (unknown) (no (unknown) (unknown) butamben [From (units (unknown) date) CETACAINE] Allergy unknown) (Unknown, Verified 12/08/22 15:36) (unknown) (no (unknown) (unknown) cholecalciferol (units (unknown) date) (vitamin D3) 250 mcg unknown) (10,000 unit) capsule 250 mcg PO DAILY (unknown) (no (unknown) (unknown) clonazepam 1 mg (units (unknown) date) tablet 1 - 2 mg PO unknown) BID 05/26/21 [History Confirmed 12/08/22] (unknown) (no (unknown) (unknown) complication status: (uni ts (unknown) date) unspecified whether unknown) hemorrhage or perforation present (unknown) (no (unknown) (unknown) conservative (units (u nknown) date) management with home unknown) therapy. (unknown) (no (unknown) (unknown) dexamethasone (units ( unknown) date) [DEXAMETHASONE] unknown) Allergy (Unknown, Verified 12/08/22 15:36) (unknown) (no (unknown) (unknown) dextroamphetamine-am (uni ts (unknown) date) phetamine 10 mg unknown) tablet (Adderall) 20 mg PO BID #0 tabs (unknown) (no (unknown) (unknown) dicloxacillin (units ( unknown) date) [DICLOXACILLIN] unknown) Allergy (Unknown, Verified 12/08/22 15:36) (unknown) (no (unknown) (unknown) dihydroergocristine (unit s (unknown) date) [DIHYDROERGOCRISTINE] unknown) Allergy (Unknown, Verified 12/08/22 (unknown) (no (unknown) (unknown) dihydroergotamine (units (unknown) date) [DIHYDROERGOTAMINE] unknown) Allergy (Unknown, Verified 12/08/22 15:36) (unknown) (no (unknown) (unknown) diphenhydramine (units (unknown) date) [DIPHENHYDRAMINE] unknown) Allergy (Unknown, Verified 12/08/22 15:36) (unknown) (no (unknown) (unknown) discuss with (units (un known) date) Gastroenterology unknown) benefits of low FODMAPs. Also has noted some blood (unknown) (no (unknown) (unknown) epinephrine 0.3 (units (unknown) date) mg/0.3 mL injection, unknown) auto-injector 0.3 mg IM ONCE 05/26/21 (unknown) (no (unknown) (unknown) frovatriptan (units (u nknown) date) [FROVATRIPTAN] unknown) Allergy (Unknown, Verified 12/08/22 15:36) (unknown) (no (unknown) (unknown) grossly normal, (units (unknown) date) mental status grossly unknown) normal, speech and movement normal, normal (unknown) (no (unknown) (unknown) have occurred. If (units (unknown) date) there are any unknown) questions, please contact the Medical Records (unknown) (no (unknown) (unknown) hemorrhage type (units (unknown) date) Qualified Code(s): unknown) K92.2 - Gastrointestinal hemorrhage, (unknown) (no (unknown) (unknown) history of gastric (units (unknown) date) ulcers. Also unknown) continues to have chronic pain in significant (unknown) (no (unknown) (unknown) hydromorphone 2 mg (units (unknown) date) tablet 2 mg PO Q4-6H unknown) PRN 11/16/22 [History Confirmed (unknown) (no (unknown) (unknown) hydroxyzine (units (un known) date) [HYDROXYZINE] Allergy unknown) (Unknown, Verified 12/08/22 15:36) (unknown) (no (unknown) (unknown) ibuprofen (units (unkn own) date) [IBUPROFEN] Allergy unknown) (Unknown, Verified 12/08/22 15:36) (unknown) (no (unknown) (unknown) in stool. She does (units (unknown) date) have upcoming unknown) appointment with Gastroenterology. Reports (unknown) (no (unknown) (unknown) latex [LATEX] (units ( unknown) date) Allergy (Unknown, unknown) Verified 12/08/22 15:36) (unknown) (no (unknown) (unknown) magnesium glycinate (unit [...] (unknown) date) [METOCLOPRAMIDE] unknown) Allergy (Unknown, Verified 12/08/22 15:36) (unknown) (no (unknown) (unknown) normal cognition (units (unknown) date) unknown) (unknown) (no (unknown) (unknown) normal respiratory (units (unknown) date) effort, able to speak unknown) in complete sentences and no (unknown) (no (unknown) (unknown) nortriptyline (units ( unknown) date) [NORTRIPTYLINE] unknown) Allergy (Unknown, Verified 12/08/22 15:36) (unknown) (no (unknown) (unknown) occurred due to the (unit s (unknown) date) inherent limitations unknown) of voice recognition software. Please (unknown) (no (unknown) (unknown) patient alert, awake (uni ts (unknown) date) unknown) (unknown) (no (unknown) (unknown) prasterone (DHEA) (units (unknown) date) [PRASTERONE (DHEA)] unknown) Allergy (Unknown, Verified 12/08/22 15:36) (unknown) (no (unknown) (unknown) prednisone (units (unk nown) date) [PREDNISONE] Allergy unknown) (Unknown, Verified 12/08/22 15:36) (unknown) (no (unknown) (unknown) pregabalin 100 mg (units (unknown) date) capsule (Lyrica) 200 unknown) mg PO BID 05/26/21 [History Confirmed (unknown) (no (unknown) (unknown) prochlorperazine (units (unknown) date) [From COMPAZINE] unknown) Allergy (Unknown, Verified 12/08/22 15:36) (unknown) (no (unknown) (unknown) promethazine [From (units (unknown) date) PHENERGAN] Allergy unknown) (Unknown, Verified 12/08/22 15:36) (unknown) (no (unknown) (unknown) read the note (units ( unknown) date) carefully and unknown) recognize, using context, where these substitutions (unknown) (no (unknown) (unknown) recently diagnosed (units (unknown) date) with esophageal unknown) dysmotility. Also has noted some blood in (unknown) (no (unknown) (unknown) respiratory distress (uni ts (unknown) date) unknown) (unknown) (no (unknown) (unknown) rizatriptan (units (un known) date) [RIZATRIPTAN] Allergy unknown) (Unknown, Verified 12/08/22 15:36) (unknown) (no (unknown) (unknown) sciatica enough to (units (unknown) date) require her to be in unknown) wheelchair. Did discuss some exercises (unknown) (no (unknown) (unknown) sciatica enough to (units (unknown) date) require her to be in unknown) wheelchair. She is not improved with (unknown) (no (unknown) (unknown) sertraline 50 mg (units (unknown) date) tablet (Zoloft) 50 mg unknown) PO DAILY #60 tabs 11/16/22 [Rx Confirmed (unknown) (no (unknown) (unknown) she still has some (units (unknown) date) blood that she coughs unknown) up in the morning time. Also was (unknown) (no (unknown) (unknown) shortness of breath (unit s (unknown) date) or wheezing #8.5 unknown) grams 10/10/22 [Rx Confirmed 12/08/22] (unknown) (no (unknown) (unknown) software. 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 She does have (uni ts (unknown) date) upcoming appointment unknown) with Gastroenterology. Reports (unknown) (no (unknown) (unknown) sumatriptan (units (un known) date) [SUMATRIPTAN] Allergy unknown) (Unknown, Verified 12/08/22 15:36) (unknown) (no (unknown) (unknown) syndrome, (units (unkn own) date) fibromyalgia who is unknown) here for multiple concerns. She does note that (unknown) (no (unknown) (unknown) temazepam 30 mg (units (unknown) date) capsule 30 mg PO unknown) BEDTIME PRN 05/26/21 [History Confirmed (unknown) (no (unknown) (unknown) tetracaine (units (unk nown) date) [TETRACAINE] Allergy unknown) (Unknown, Verified 12/08/22 15:36) (unknown) (no (unknown) (unknown) time. Recommended (units (unknown) date) both pulmonology and unknown) Gastroenterology evaluation. Can also (unknown) (no (unknown) (unknown) to help. We did also (uni ts (unknown) date) complete acupuncture unknown) today. (unknown) (no (unknown) (unknown) topiramate [From (units (unknown) date) TOPAMAX] Allergy unknown) (Unknown, Verified 12/08/22 15:36) (unknown) (no (unknown) (unknown) unspecified (units (un known) date) unknown) (unknown) (no (unknown) (unknown) valproic acid (units ( unknown) date) [VALPROIC ACID] unknown) Allergy (Unknown, Verified 12/08/22 15:36) (unknown) (no (unknown) (unknown) vancomycin (units (unk nown) date) [VANCOMYCIN] Allergy unknown) (Unknown, Verified 12/08/22 15:36) (unknown) (no (unknown) (unknown) verapamil (units (unkn own) date) [VERAPAMIL] Allergy unknown) (Unknown, Verified 12/08/22 15:36) (unknown) (no (unknown) (unknown) with sciatica, left (unit s (unknown) date) side; M54.41 - unknown) Lumbago with sciatica, right side; G89.29 (unknown) (no (unknown) (unknown) without hemorrhage (units (unknown) date) or perforation unknown) (unknown) (no (unknown) (unknown) zinc sulfate 50 mg (units (unknown) date) zinc (220 mg) tablet unknown) 50 mg PO DAILY 05/26/21 [History Social History date description facility 2022-10-10 00:00 Ex-smoker (finding) [facility] 2022-10-20 00:00 Ex-smoker (finding) [facility] 2022-11-16 00:00 Ex-smoker (finding) [facility] 2022-11-24 00:00 Ex-smoker (finding) [facility] 2022-12-08 00:00 Ex-smoker (finding) [facility] Vital Signs date measurement value units 2022-10-10 [...] 87.08 kg 2022-10-10 00:00 weight_standard 191.98 lb 2022-10-20 00:00 BMI 27.1 kg/m2 2022-10-20 00:00 BP_diastolic 78 mmHg 2022-10-20 00:00 BP_systolic 112 mmHg 2022-10-20 00:00 heart_rate 112 /min 2022-10-20 00:00 height_metric 180.34 cm 2022-10-20 00:00 height_standard 71 in 2022-10-20 00:00 o2_saturation 96 % 2022-10-20 00:00 temperature_metric 36.39 C 2022-10-20 00:00 temperature_standard 97.5 F 2022-10-20 00:00 weight_metric 88.45 kg 2022-10-20 00:00 weight_standard 195 lb 2022-11-16 00:00 BP_diastolic 80 mmHg 2022-11-16 00:00 BP_systolic 128 mmHg 2022-11-16 00:00 heart_rate 79 /min 2022-11-16 00:00 o2_saturation 98 % 2022-11-16 00:00 weight_metric 86.18 kg 2022-11-16 00:00 weight_standard 189.99 lb 2022-11-24 00:00 BP_diastolic 85 mmHg 2022-11-24 00:00 BP_systolic 132 mmHg 2022-11-24 00:00 heart_rate 66 /min 2022-11-24 00:00 o2_saturation 100 % 2022-11-24 00:00 respiration_rate 22 /min 2022-11-24 00:00 temperature_metric 36.72 C 2022-11-24 00:00 temperature_standard 98.1 F 2022-12-08 00:00 BP_diastolic 90 mmHg 2022-12-08 00:00 BP_systolic 120 mmHg
--- NOTE | 2022-12-14 23:09 | ED Physician Documentation ---
PD HPI HEADACHE - Stated complaint Stated Complaint: MIGRAINE MADSEN, N/V - Chief complaint Chief Complaint: Neuro - History obtained from History obtained from: Patient - History of Present Illness Worst headache ever?: No: Worst headache ever? - Additional information Additional information: HPI from patient. Patient complains of headache consistent with her previous migraine headaches. This headache started 3 to 4 days ago and is associate with nausea and vomiting; the nausea/vomiting did not start until earlier today. The vomiting has progressed to the point that she is unable to keep any medications down at home including her migraine medications and antinausea medications. Patient has a care plan with her which was written by her neurologist (Dr. Nils Park). Review of Systems Constitutional: denies: Fever Eyes: reports: Photophobia. denies: Loss of vision, Decreased vision GI: reports: Nausea, Vomiting. denies: Abdominal Pain Neurologic: reports: Headache. denies: Focal weakness, Numbness, Confused, Altered mental status PD PAST MEDICAL HISTORY - Past Medical History Cardiovascular: None Respiratory: None Neuro: TIA, Headaches, Migraines Endocrine/Autoimmune: None GI: None COLOR CARD MAKER: Endometriosis : None HEENT: None Psych: Depression, Anxiety, ADD/ADHD, Post traumatic stress disorder Musculoskeletal: Osteoarthritis, Fibromyalgia Derm: None - Past Surgical History Past Surgical History: Yes General: Appendectomy /COLOR CARD MAKER: Endometrial ablation, Other HEENT: Tonsil/Adenoidectomy - Present Medications Home Medications: Ambulatory Orders Medication Instructions Recorded Confirmed Pregabalin [Lyrica] 100 mg PO TID 02/09/16 12/15/22 Temazepam [Restoril] 1 tab PO DAILY 07/31/16 12/15/22 Magnesium 250 mg PO DAILY 06/21/17 12/15/22 Dextroamphetamine/Amphetamine 20 mg PO BID 12/08/21 12/15/22 [Adderall 10 mg Tablet] Melatonin 1 mg PO HS PRN 12/08/21 12/15/22 [place]-3/Dha/Epa/Fish Oil [Fish Oil 1 tab PO DAILY 12/08/21 12/15/22 1,000 mg Softgel] Zinc Citrate [Zinc] 1 tab PO DAILY 12/08/21 12/15/22 EPINEPHrine [Epinephrine] 0.3 mg IJ ONCE PRN #2 dis.syr 01/09/22 12/15/22 clonazePAM [Clonazepam] 1 mg PO BID PRN 01/09/22 10/22/22 Biotin 1,000 mcg PO DAILY 10/22/22 12/15/22 Bromelains [Bromelain] 500 mg PO DAILY 10/22/22 12/15/22 Cyanocobalamin (Vitamin B-12) 1,000 mcg PO DAILY 10/22/22 12/15/22 [Vitamin B-12] Diclofenac Sodium 1% Gel [Voltaren PRN 10/22/22 Gel] Dicyclomine [Bentyl] 10 mg PO BID PRN #20 cap 10/22/22 12/15/22 Famotidine [Pepcid] 20 mg PO DAILY #20 tablet 10/22/22 12/15/22 HYDROmorphone [Dilaudid] 2 mg PO Q6H PRN #20 tablet 10/22/22 12/15/22 Lidocaine Patch 5% [Lidoderm Patch] 1 each TOP DAILY 10/22/22 12/15/22 Meclizine [Antivert] 25 mg PO Q6H 10/22/22 12/15/22 Meloxicam, Submicronized 15 mg PO DAILY PRN 10/22/22 12/15/22 [Meloxicam] Quercetin Dihydrate 1 gm MC DAILY 10/22/22 12/15/22 Sucralfate [Carafate] 1 gm PO TID PRN #300 ml 10/22/22 12/15/22 - Allergies Allergies/Adverse Reactions: Allergies Allergy/AdvReac Type Severity Reaction Status Date / Time sumatriptan succinate * Allergy Severe anaphylaxis Verified 12/15/22 01:05 [From Imitrex] vancomycin Allergy Severe nicolette Verified 12/15/22 01:05 syndrome doxycycline Allergy Unknown Unknown Verified 12/15/22 01:05 divalproex sodium Allergy Anaphylaxis Verified 12/15/22 01:05 [From Depakote] nortriptyline Allergy Anaphylaxis Verified 12/15/22 01:05 prochlorperazine Allergy Anaphylaxis Verified 12/15/22 01:05 [From Compazine] promethazine Allergy Anaphylaxis Verified 12/15/22 01:05 rimegepant Allergy Anaphylaxis Verified 12/15/22 01:05 Antihistamines - Alkylamine AdvReac Severe severe Verified 12/15/22 01:05 anxiety, wheezing, dizziness prednisone AdvReac Severe Hallucinati Verified 12/15/22 01:05 ons diphenhydramine HCl * AdvReac Unknown Unknown Verified 12/15/22 01:05 [From Benadryl] pentosan polysulfate sodium AdvReac Unknown Verified 12/15/22 01:05 [From Elmiron] ondansetron odt Allergy Anaphylaxis Uncoded 12/15/22 01:05 tape Allergy Hives Uncoded 12/15/22 01:05 - Social History Does the pt smoke?: No Smoking Status: Never smoker Does the pt drink ETOH?: No Does the pt have substance abuse?: No - Immunizations Immunizations are current?: Yes - POLST Patient has POLST: No PD ED PE NORMAL - Vitals Vital signs reviewed: Yes - General General: Alert and oriented X 3, Well developed/nourished, Other (Lights are off in the room for patient comfort, and she is wearing sunglasses. 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, No motor deficit, No sensory deficit, Normal speech Eye Opening: Spontaneous Motor: Obeys Commands Verbal: Oriented GCS Score: 15 Results - Vitals Vitals: Vital Signs - 24 hr 12/14/22 12/15/22 12/15/22 22:49 00:30 00:52 Temperature 37.3 C Heart Rate 106 H 89 87 Respiratory 16 14 16 Rate Blood Pressure 124/84 H 125/93 H 125/93 H O2 Saturation 97 99 97 12/15/22 01:50 Temperature 36.9 C Heart Rate 81 Respiratory 14 Rate Blood Pressure 120/85 H O2 Saturation 100 Oxygen O2 Source Room air Oxygen Flow Rate 15 - Labs Labs: Laboratory Tests 12/15/22 00:08 Sodium 140 Potassium 3.5 Chloride 110 Carbon Dioxide 25 Anion Gap 5.0 L BUN 15 Creatinine 0.7 Estimated GFR (MDRD) 95 Glucose 95 Calcium 8.6 PD Medical Decision Making - ED course Complexity details: reviewed old records, reviewed results, re-evaluated patient, considered differential, d/w patient ED course: Patient presents with headache that is consistent with her recurrent migraines; patient is well-known to this emergency department for many visits over several years, frequently for similar headaches. She is given medications according to her care plan, as well as 15 minutes of oxygen by nonrebreather. Basic metabolic profile is performed tonight, as patient says that she is having some skipped beat palpitations and has had some electrolyte abnormalities in the past. On reevaluation, I discussed the results of the basic metabolic profile with the patient. She reports improvement in her symptoms. In keeping with her care plan, no further medications are given. Return precautions discussed. Departure - Departure Disposition: 01 Home, Self Care Clinical Impression: Migraine Condition: Good Instructions: ED Headache Migraine Follow-Up: TY GOEL MD [Primary Care Provider] - Comments: Your electrolytes, kidney function test, and blood sugar were normal on tonight's blood tests. Discharge Date/Time: 12/15/22 01:52
[2022-12-14] MEDS ORDERED: SODIUM CHLORIDE 0.9% 1,000 ML IV STA (23:20)
[2022-12-14] MEDS ORDERED: LORazepam 2 MG/ML VIAL IVP STA (23:20)
[2022-12-14] MEDS ORDERED: HYDROmorphone 1 MG/ML CARPUJECT IVP STA (23:20)
[2022-12-14] MEDS ORDERED: ONDANSETRON 4 MG/2 ML VIAL IVP STA (23:22)
[2022-12-14] MEDS ORDERED: KETOROLAC 30 MG/ML VIAL IVP STA (23:22)
[2022-12-15 00:53] LABS: CALCIUM 8.6 mg/dL (8.5-10.3); CREATININE 0.7 mg/dL (0.4-1.0); POTASSIUM 3.5 mmol/L (3.5-5.0)
[2022-12-15 02:00] VITALS: BP 120/85
== END 2022-12-15 01:52 | disposition home or self-care (01) ==
LOC: ED 22:43
DX: G43.909 Migraine, unspecified, not intractable, without status migrainosus (principal); Z79.899 Other long term (current) drug therapy
CPT/HCPCS: 36415; 80048; 96374; 96375; 99284; 99285; J1170; J2060

== ENCOUNTER 2023-01-07 07:41 | Emergency (ER) | payer MEDICAID ==
[2023-01-07] MEDS ORDERED: SODIUM CHLORIDE 0.9% 1,000 ML IV STA (08:42)
[2023-01-07] MEDS ORDERED: HYDROmorphone 1 MG/ML CARPUJECT IVP STA ×2 (09:17→11:28)
[2023-01-07] MEDS ORDERED: KETOROLAC 30 MG/ML VIAL IVP STA (09:17)
[2023-01-07] MEDS ORDERED: ONDANSETRON 4 MG/2 ML VIAL IVP STA (09:17)
[2023-01-07] MEDS ORDERED: LORazepam 2 MG/ML VIAL IVP STA (09:17)
--- NOTE | 2023-01-07 09:22 | ED Physician Documentation ---
History of Present Illness - Stated complaint Stated Complaint: MIGRAINE/VOMIT - Chief complaint Chief Complaint: Neuro - History obtained from History obtained from: Patient - Additonal information Additional information: The patient comes to the emergency department with chief complaint of migraine headache for the last 6 days. The patient is well-known to our department for chronic migraine headaches and is a patient of Dr. Nils Park of neurology in [place]. The patient states that she feels as though her symptoms are the same nature as usual but worse than usual this time. She denies any new or different symptoms. No fevers or chills. No head injury. She has not felt sick with anything. She takes Zofran at home and she is on Botox which has decreased her frequency of bad migraines greatly. She states she cannot tolerate triptans. The patient states she has been quite nauseated and has been vomiting since onset of symptoms. She states her medications would be helpful if she could keep them down, but she cannot. The patient comes with a letter from Dr. Park, requesting a cocktail of medications to be given no more than twice in a month, including Toradol 30 mg, Ativan 0.5 mg, Zofran 8 mg, and Dilaudid 2 mg IV, along with a liter of normal saline. 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 ASSISTANT: Endometriosis : None HEENT: None Psych: Depression, Anxiety, ADD/ADHD, Post traumatic stress disorder Musculoskeletal: Osteoarthritis, Fibromyalgia Derm: None - Past Surgical History Past Surgical History: Yes General: Appendectomy /TEMPORARY OFFICE ASSISTANT: Endometrial ablation, Other HEENT: Tonsil/Adenoidectomy - Present Medications Home Medications: Ambulatory Orders Medication Instructions Recorded Confirmed Pregabalin [Lyrica] 100 mg PO TID 02/09/16 01/07/23 Temazepam [Restoril] 1 tab PO DAILY 07/31/16 01/07/23 Magnesium 250 mg PO DAILY 06/21/17 01/07/23 Dextroamphetamine/Amphetamine 20 mg PO BID 12/08/21 01/07/23 [Adderall 10 mg Tablet] Melatonin 1 mg PO HS PRN 12/08/21 01/07/23 [place]-3/Dha/Epa/Fish Oil [Fish Oil 1 tab PO DAILY 12/08/21 01/07/23 1,000 mg Softgel] Zinc Citrate [Zinc] 1 tab PO DAILY 12/08/21 01/07/23 EPINEPHrine [Epinephrine] 0.3 mg IJ ONCE PRN #2 dis.syr 01/09/22 01/07/23 clonazePAM [Clonazepam] 1 mg PO BID PRN 01/09/22 01/07/23 Biotin 1,000 mcg PO DAILY 10/22/22 01/07/23 Bromelains [Bromelain] 500 mg PO DAILY 10/22/22 01/07/23 Cyanocobalamin (Vitamin B-12) 1,000 mcg PO DAILY 10/22/22 01/07/23 [Vitamin B-12] Diclofenac Sodium 1% Gel [Voltaren 1 applic TOP DAILY PRN 10/22/22 01/07/23 Gel] HYDROmorphone [Dilaudid] 2 mg PO Q6H PRN #20 tablet 10/22/22 01/07/23 Lidocaine Patch 5% [Lidoderm Patch] 1 each TOP DAILY PRN 10/22/22 01/07/23 Meclizine [Antivert] 25 mg PO Q6H PRN 10/22/22 01/07/23 Meloxicam, Submicronized 15 mg PO DAILY PRN 10/22/22 01/07/23 [Meloxicam] Prochlorperazine Supp [Compazine 25 mg MT BID PRN #14 supp 01/07/23 Supp] Sertraline [Zoloft] 50 mg ORAL DAILY 01/07/23 01/07/23 - Allergies Allergies/Adverse Reactions: Allergies Allergy/AdvReac Type Severity Reaction Status Date / Time sumatriptan succinate * Allergy Severe anaphylaxis Verified 01/07/23 07:59 [From Imitrex] vancomycin Allergy Severe nicolette Verified 01/07/23 07:59 syndrome doxycycline Allergy Unknown Unknown Verified 01/07/23 07:59 divalproex sodium Allergy Anaphylaxis Verified 01/07/23 07:59 [From Depakote] nortriptyline Allergy Anaphylaxis Verified 01/07/23 07:59 prochlorperazine Allergy Anaphylaxis Verified 01/07/23 07:59 [From Compazine] promethazine Allergy Anaphylaxis Verified 01/07/23 07:59 rimegepant Allergy Anaphylaxis Verified 01/07/23 07:59 Antihistamines - Alkylamine AdvReac Severe severe Verified 01/07/23 07:59 anxiety, wheezing, dizziness prednisone AdvReac Severe Hallucinati Verified 01/07/23 07:59 ons diphenhydramine HCl * AdvReac Unknown Unknown Verified 01/07/23 07:59 [From Benadryl] pentosan polysulfate sodium AdvReac Unknown Verified 01/07/23 07:59 [From Elmiron] ondansetron odt Allergy Anaphylaxis Uncoded 12/15/22 01:05 tape Allergy Hives Uncoded 12/15/22 01:05 - Social History Does the pt smoke?: No Smoking Status: Never smoker Does the pt drink ETOH?: No Does the pt have substance abuse?: No - Immunizations Immunizations are current?: Yes - POLST Patient has POLST: No PD ED PE NORMAL - Vitals Vital signs reviewed: Yes - General General: Alert and oriented X 3, Well developed/nourished, Other (The patient appears uncomfortable, crouching under a blanket that is over her head in a darkened room, with sunglasses on, crying.) - HEENT HEENT: Atraumatic, PERRL, EOMI, Moist mucous membranes - Neck Neck: Supple, no meningeal sign - Cardiac Cardiac: RRR, No murmur - Respiratory Respiratory: No respiratory distress, Clear bilaterally - Abdomen Abdomen: Soft, Non distended - Derm Derm: Normal color, Warm and dry, No rash - Extremities Extremities: No deformity - Neuro Neuro: Alert and oriented X 3 - Psych Psych: Normal mood, Normal affect Results - Vitals Vitals: Oxygen O2 Source Nasal cannula Oxygen Flow Rate 2 PD Medical Decision Making - ED course Complexity details: considered differential, d/w patient, d/w family ED course: Patient was treated symptomatically according to the regimen requested by her neurologist. She reported no other unusual symptoms and I felt that further work-up was not indicated at this time. The patient reported that she was still having nausea and a headache. I did go and speak with her after giving her droperidol and she did report that the nausea was better but that her head still hurt. I discussed with her that she is received quite a bit of medication over the and that we will I will give her 1 more milligram of Dilaudid she is going to need to go home and let the meds kick in. I have advised her to call Dr. Park's office first thing tomorrow morning, as today is Sunday. The patient was agreeable to the plan. She was given a milligram of Dilaudid on top of what she had already received. The patient did not have any new or alarming factors and was afebrile here in the emergency department. Departure - Departure Disposition: Home, Self Care Clinical Impression: Migraine Qualifiers: Migraine type: unspecified Status migrainosus presence: with status migrainosus Intractability: not intractable Qualified Code(s): G43.901 - Migraine, unspecified, not intractable, with status migrainosus Condition: Stable Instructions: ED Headache Migraine Prescriptions: Prochlorperazine Supp [Compazine Supp] 25 mg MT BID PRN #14 supp PRN Reason: Nausea / Vomiting Comments: You have been treated not only with the regimen requested by Dr. Park, but also an extra dose of IV nausea medicine and pain medicine. You are doing somewhat better and at this point, we will let you get some rest at home. A prescription for a nausea suppository that is in the same family as which she received through the IV today has been electronically transmitted To the [facility] pharmacy in [place], your pharmacy of choice on record. Please call Dr. Park's office in the morning if you are still not feeling well. You have been giving's multiple sedating medications in the emergency department today, and should not drive or make any important decisions for the rest of the day. Discharge Date/Time: 01/07/23 12:17
[2023-01-07] MEDS ORDERED: DROPERIDOL 5 MG/2 ML VIAL IVP STA (10:39)
[2023-01-07 12:15] VITALS: BP 105/69
== END 2023-01-07 12:17 | disposition home or self-care (01) ==
LOC: ED 07:41
DX: G43.901 Migraine, unspecified, not intractable, with status migrainosus (principal); Z79.899 Other long term (current) drug therapy
CPT/HCPCS: 96374; 96375; 96376; 99283; 99285; J1170; J2060

== ENCOUNTER 2023-07-20 10:12 | Emergency (ER) | payer MEDICAID ==
[2023-07-20 10:41] LABS: BASOPHILS % (AUTO) 0.4 %; EOSINOPHILS # (AUTO) 0.1 10^3/uL (0.0-0.7); EOSINOPHILS % (AUTO) 1.9 %; HGB - HEMOGLOBIN 13.7 g/dL (12.0-16.0); LYMPHOCYTES # (AUTO) 0.9 10^3/uL (1.5-3.5); LYMPHOCYTES % (AUTO) 11.4 %; MEAN CORPUSCULAR HEMOGLOBIN 28.2 pg (27.0-31.0); MEAN CORPUSCULAR HGB CONC 32.6 g/dL (32.0-36.0); MEAN CORPUSCULAR VOLUME 86.4 fL (81.0-99.0); MEAN PLATELET VOLUME 10.4 fL (7.9-10.8); MONOCYTES # (AUTO) 0.4 10^3/uL (0.0-1.0); MONOCYTES % (AUTO) 4.7 %; NEUTROPHILS # (AUTO) 6.1 10^3/uL (1.5-6.6); NEUTROPHILS % (AUTO) 81.3 %; PLT - PLATELET COUNT 270 10^3/uL (130-450); RED BLOOD COUNT 4.86 10^6/uL (4.20-5.40); RED CELL DISTRIBUTION WIDTH 12.6 % (12.0-15.0); WHITE BLOOD COUNT 7.5 x10^3/uL (4.8-10.8)
[2023-07-20 10:57] LABS: ALBUMIN 4.7 g/dL (3.2-5.5); ALBUMIN/GLOBULIN RATIO 1.5 (1.0-2.2); BILIRUBIN,TOTAL 0.9 mg/dL (0.2-1.0); CALCIUM 9.6 mg/dL (8.5-10.3); CREATININE 0.7 mg/dL (0.6-1.3); POTASSIUM 4.1 mmol/L (3.5-4.5); TOTAL PROTEIN 7.8 g/dL (6.4-8.9)
[2023-07-20] MEDS ORDERED: fentaNYL 100 MCG/2 ML VIAL IVP STA (13:38)
[2023-07-20] MEDS ORDERED: ONDANSETRON 4 MG/2 ML VIAL IVP STA ×3 (13:39→16:39)
[2023-07-20] MEDS ORDERED: SODIUM CHLORIDE 0.9% 1,000 ML IV STA (13:39)
[2023-07-20] MEDS ORDERED: HYDROmorphone 1 MG/ML CARPUJECT IVP STA ×3 (14:07→19:23)
[2023-07-20] MEDS ORDERED: KETOROLAC 15 MG/ML VIAL IVP STA (14:07)
[2023-07-20 14:09] LABS: BILIRUBIN,URINE NEGATIVE (NEGATIVE); GLUCOSE, URINE (UA) NEGATIVE (NEGATIVE); KETONES,URINE (UA) NEGATIVE (NEGATIVE); LEUKOCYTE ESTERASE, URINE NEGATIVE (NEGATIVE); NITRITE,URINE NEGATIVE (NEGATIVE); OCCULT BLOOD,URINE NEGATIVE (NEGATIVE); PH,URINE 6.5 PH (5.0-7.5); PROTEIN,URINE NEGATIVE (NEGATIVE); UROBILINOGEN,URINE 0.2 (NORMAL) E.U./dL (NORMAL)
[2023-07-20 14:11] LABS: CLARITY,URINE CLEAR (CLEAR)
[2023-07-20 14:12] LABS: HCG UR QUAL NEGATIVE
--- NOTE | 2023-07-20 14:34 | ED Physician Documentation ---
PD HPI ABD PAIN - Stated complaint Stated Complaint: RT UPPER ABD/SHOULDR PX,NAUSEA,MADSEN - Chief complaint Chief Complaint: Abd Pain - History obtained from History obtained from: Patient - History of Present Illness Timing - onset: How many days ago (08/21) Timing - duration: Hours (She had onset 1-2 evenings ago soon after eating of a significant right upper quadrant to epigastric area pain quite severe and abrupt that lasted for several hours. No improvement with antacids or sacral fate. It dissipated and then was mostly gone through yesterday. Severe again this AM.) Timing - details: Abrupt onset, Still present Quality: Cramping, Aching, Pain Location: RUQ, Epigastric Radiation: Right shoulder Improved by: No: Eating Worsened by: Breathing, Palpation. No: Eating Associated symptoms: Nausea, Vomiting, Diarrhea (loose yesterday several movements, none today.). No: Fever, Constipation Similar symptoms before: Has not had sx before Review of Systems Constitutional: denies: Fever, Chills Nose: reports: Congestion (2 weeks ago for a week, improved.). denies: Rhinorrhea / runny nose Throat: denies: Sore throat Respiratory: denies: Cough GI: reports: Abdominal Pain, Nausea, Vomiting. denies: Constipation : reports: Dysuria (chronic) Skin: denies: Rash, Lesions Neurologic: reports: Generalized weakness. denies: Near syncope PD PAST MEDICAL HISTORY - Past Medical History Past Medical History: Yes Cardiovascular: None Respiratory: None Neuro: TIA, Headaches, Migraines Endocrine/Autoimmune: None GI: None SPACER TYPE BAR AND SEGMENT: Endometriosis : None HEENT: None Psych: Depression, Anxiety, ADD/ADHD, Post traumatic stress disorder Musculoskeletal: Osteoarthritis, Fibromyalgia Derm: None Other Past Medical History: CRPS - Past Surgical History Past Surgical History: Yes General: Appendectomy /SPACER TYPE BAR AND SEGMENT: Endometrial ablation (and endometriosis implant ablations including gallbladder in the past. ), Other HEENT: Tonsil/Adenoidectomy - Present Medications Home Medications: Ambulatory Orders Medication Instructions Recorded Confirmed Pregabalin [Lyrica] 100 mg PO TID 02/09/16 01/07/23 Temazepam [Restoril] 1 tab PO DAILY 07/31/16 01/07/23 Magnesium 250 mg PO DAILY 06/21/17 01/07/23 Dextroamphetamine/Amphetamine 20 mg PO BID 12/08/21 01/07/23 [Adderall 10 mg Tablet] Melatonin 1 mg PO HS PRN 12/08/21 01/07/23 [place]-3/Dha/Epa/Fish Oil [Fish Oil 1 tab PO DAILY 12/08/21 01/07/23 1,000 mg Softgel] Zinc Citrate [Zinc] 1 tab PO DAILY 12/08/21 01/07/23 EPINEPHrine [Epinephrine] 0.3 mg IJ ONCE PRN #2 dis.syr 01/09/22 01/07/23 clonazePAM [Clonazepam] 1 mg PO BID PRN 01/09/22 01/07/23 Biotin 1,000 mcg PO DAILY 10/22/22 01/07/23 Bromelains [Bromelain] 500 mg PO DAILY 10/22/22 01/07/23 Cyanocobalamin (Vitamin B-12) 1,000 mcg PO DAILY 10/22/22 01/07/23 [Vitamin B-12] Diclofenac Sodium 1% Gel [Voltaren 1 applic TOP DAILY PRN 10/22/22 01/07/23 Gel] HYDROmorphone [Dilaudid] 2 mg PO Q6H PRN #20 tablet 10/22/22 01/07/23 Lidocaine Patch 5% [Lidoderm Patch] 1 each TOP DAILY PRN 10/22/22 01/07/23 Meclizine [Antivert] 25 mg PO Q6H PRN 10/22/22 01/07/23 Meloxicam, Submicronized 15 mg PO DAILY PRN 10/22/22 01/07/23 [Meloxicam] Prochlorperazine Supp [Compazine 25 mg DC BID PRN #14 supp 01/07/23 Supp] Sertraline [Zoloft] 50 mg ORAL DAILY 01/07/23 01/07/23 - Allergies Allergies/Adverse Reactions: Allergies Allergy/AdvReac Type Severity Reaction Status Date / Time ondansetron Allergy Severe Anaphylaxis Verified 07/20/23 15:27 sumatriptan succinate * Allergy Severe anaphylaxis Verified 01/07/23 07:59 [From Imitrex] vancomycin Allergy Severe nicolette Verified 07/20/23 10:27 syndrome adhesive tape Allergy Intermediate Hives Verified 07/20/23 15:27 doxycycline Allergy Unknown Unknown Verified 07/20/23 10:27 divalproex sodium Allergy Anaphylaxis Verified 07/20/23 10:27 [From Depakote] nortriptyline Allergy Anaphylaxis Verified 07/20/23 10:27 prochlorperazine Allergy Anaphylaxis Verified 07/20/23 10:27 [From Compazine] promethazine Allergy Anaphylaxis Verified 07/20/23 10:27 rimegepant Allergy Anaphylaxis Verified 07/20/23 10:27 Antihistamines - Alkylamine AdvReac Severe severe Verified 07/20/23 10:27 anxiety, wheezing, dizziness prednisone AdvReac Severe Hallucinati Verified 07/20/23 10:27 ons diphenhydramine HCl * AdvReac Unknown Unknown Verified 07/20/23 10:27 [From Benadryl] pentosan polysulfate sodium AdvReac Unknown Verified 07/20/23 10:27 [From Elmiron] - Social History Does the pt smoke?: No Smoking Status: Never smoker Does the pt drink ETOH?: No Does the pt have substance abuse?: Yes Substance Use and Type: CBD oil / Products - Immunizations Immunizations are current?: Yes - POLST Patient has POLST: No PD ED PE NORMAL - Vitals Vital signs reviewed: Yes - General General: Alert and oriented X 3, Well developed/nourished, Other (She appears in significant pain and holding the right upper abdomen hunched over.) - Neck Neck: Supple, no meningeal sign, No adenopathy - Cardiac Cardiac: RRR, No murmur - Respiratory Respiratory: No respiratory distress, Clear bilaterally - Abdomen Abdomen: Normal bowel sounds, Soft, Non distended, No organomegaly, Other (Significant tenderness in the right upper quadrant to epigastric area with guarding and percussion tenderness. No referred tenderness from the lower abdomen. No CVA tenderness.) - Female Female : Deferred - Rectal Rectal: Deferred - Back Back: No CVA TTP - Derm Derm: Normal color - Neuro Neuro: Alert and oriented X 3, No motor deficit, Normal speech Results - Vitals Vitals: Vital Signs - 24 hr 07/20/23 07/20/23 07/20/23 10:21 16:00 17:00 Temperature 36.6 C Heart Rate 100 68 82 Respiratory 30 H 19 19 Rate Blood Pressure 121/80 109/78 118/82 H O2 Saturation 100 98 98 Oxygen O2 Source Room air - Labs Labs: Laboratory Tests 07/20/23 07/20/23 07/20/23 10:36 10:36 13:43 WBC 7.5 RBC 4.86 Hgb 13.7 Hct 42.0 MCV 86.4 MCH 28.2 MCHC 32.6 RDW 12.6 Plt Count 270 MPV 10.4 Neut # (Auto) 6.1 Lymph # (Auto) 0.9 L [place] # (Auto) 0.4 Eos # (Auto) 0.1 Baso # (Auto) 0.0 Absolute Nucleated RBC 0.00 Nucleated RBC % 0.0 Sodium 136 Potassium 4.1 Chloride 106 Carbon Dioxide 22 Anion Gap 8.0 BUN 10 Creatinine 0.7 Estimated GFR (MDRD) 95 Glucose 95 Calcium 9.6 Total Bilirubin 0.9 AST 123 H ALT 84 H Alkaline Phosphatase 78 Total Protein 7.8 Albumin 4.7 Globulin 3.1 Albumin/Globulin Ratio 1.5 Lipase 18 Urine Color YELLOW Urine Clarity CLEAR Urine pH 6.5 Ur Specific [place] 1.020 Urine Protein NEGATIVE Urine Glucose (UA) NEGATIVE Urine Ketones NEGATIVE Urine Occult Blood NEGATIVE Urine Nitrite NEGATIVE Urine Bilirubin NEGATIVE Urine Urobilinogen 0.2 (NORMAL) Ur Leukocyte Esterase NEGATIVE Ur Microscopic Review NOT INDICATED Urine Culture Comments NOT INDICATED Urine HCG, Qual NEGATIVE PD Medical Decision Making - ED course Complexity details: reviewed results, considered differential (Onset 1-08/21 robe nings ago of significant epigastric to right upper quadrant pain lasting for several hours and improved with antacids. It improved proved on its own after a bit and was minimal to gone through the day yesterday but associated nausea. Recurrence again this morning persisting. ), d/w patient ED course: Hi is consideration for possible gallbladder. She had had labs drawn in the waiting room. Lipase and LFTs are normal. She had tried antacids without improvement. Will start with ultrasound. She is getting an IV started which did require several attempts by nursing. Will give her hydromorphone and ondansetron as well as Toradol. These are not on her allergy list and she has received these in the ER on recent visits. She will be given some IV fluids as well. Start with ultrasound and if not conclusive then CT may be indicated. Care to oncoming physician. Departure - Departure Clinical Impression: Acute upper abdominal pain, Nausea and vomiting Condition: Stable Record reviewed to determine appropriate education?: Yes Forms: PCP List
[2023-07-20] MEDS ORDERED: LORazepam 2 MG/ML VIAL IVP STA ×2 (16:57→18:56)
--- NOTE | 2023-07-20 17:32 | ED Physician Documentation ---
ED Addendum - Addendum Addendum: 07/20/23 17:[address] Terry at 3 PM shift change. Briefly 38-year-old woman with history of endometriosis, appendectomy, and umbilical hernia repair developed severe left upper quadrant pain 2 nights ago, yesterday had diarrhea and developed severe right upper quadrant pain today. On signout we were pending an ultrasound which was reported to me by the RDMS is totally normal. Patient seen and examined at the bedside. She does look uncomfortable and is tender in the right upper quadrant. There is no shingles rash. Labs were reviewed, CBC normal, CMP notable for mild elevation of ALT and AST which is new compared to prior labs. Urinalysis normal with negative test. Considered PE but she is not short of breath, has no leg symptoms and is not on hormone therapy and has no tachycardia or hypoxemia. Seeming more intra- abdominal and she is tender and had diarrhea. Initially was she wanted to avoid CT scanning but at this point given the lack of clear diagnosis is willing to entertain. We may also be recurrent endometriosis given her history of same. She does note she may have injured her ribs posteriorly low down a week and a half ago and will ask the unit aide tech to go up a bit into her chest to evaluate that. That said she had not had rib pain or pain in that area until 2 nights ago. 07/20/23 20:01 CT negative/normal without an explanation for right upper quadrant pain. Her pain was controlled at this time. Disposition: Discharged home Condition: Stable Diagnosis: 1. Right upper quadrant pain
--- NOTE | 2023-07-20 17:36 | Ultrasound Report ---
PROCEDURE: Abdomen Limited INDICATIONS: RUQ pain; ? tomasa TECHNIQUE: Real-time focused scanning was performed of the abdomen, with image documentation. COMPARISONS: None. FINDINGS: Liver: Liver is normal in size and heterogeneous in echotexture. Gallbladder: Unremarkable. No stones or wall thickening or Olson's sign. Biliary ducts: Intrahepatic bile ducts are non-dilated. Extrahepatic bile duct caliber measures 3 m m. Normal is 6-7 mm or less in diameter, or 10 mm or less post-cholecystectomy. Pancreas: Visualized portions of the pancreas are sonographically normal. Right kidney: Normal in size and echotexture. Right kidney measures 10.0 cm long. No hydronephrosis or nephrolithiasis. No solid masses. No complex renal cystic lesions which require follow-up. IVC: Intrahepatic inferior vena cava is patent. Miscellaneous: No free abdominal fluid. IMPRESSION: Heterogeneous liver parenchyma suggests possible hepatocellular disease. No focal liver mass. Unremarkable gallbladder. No gallstone disease. Reviewed by: Christiano Tom MD on 07/20/2023 5:35 PM PST Approved by: Christiano Tom MD on 07/20/2023 5:35 PM PST Station ID: [id number]
[2023-07-20] MEDS ORDERED: PHENAZOPYRIDINE 100 MG TABLET PO STA (18:01)
[2023-07-20] MEDS ORDERED: iohexoL-300 100 ML VIAL IVP ONE (18:59)
--- NOTE | 2023-07-20 19:34 | CT Report ---
PROCEDURE: ABDOMEN/PELVIS W INDICATIONS: IV only, RUQ pain, CONTRAST: 100ml omni 300 TECHNIQUE: After the administration of intravenous contrast, 5 mm thick sections acquired from the diaphragms to the symphysis. 5 mm thick coronal and sagittal reformats were acquired. For radiation dose reducti on, the following was used: automated exposure control, adjustment of mA and/or kV according to antionette ent size. COMPARISON: Limited abdominal ultrasound dated 07/20/2023, CT abdomen and pelvis with contrast dated 03/26/2017, CT abdomen and pelvis without contrast dated 10/21/2022 FINDINGS: Image quality: Excellent. Lung bases and heart: Unremarkable. Liver: The ultrasound findings suggesting possible hepatocellular disease. There is no significant li eric abnormality noted. No focal mass. Contour is not nodular. Gallbladder and biliary tree: No radiopaque stones or wall thickening. No biliary dilation. Spleen: No splenomegaly. Pancreas: Mildly prominent pancreatic duct. This is a chronic finding, present on 03/26/2017. Adrenals: No adrenal nodule. Kidneys and ureters: No hydronephrosis. No renal cystic lesion which requires follow up. No solid mas s. Bowel and peritoneum: No bowel distension. No pathologic free fluid. Lymph nodes: No central or retroperitoneal adenopathy. Vessels: No infrarenal aortic aneurysm. PELVIS Reproductive organs: Unremarkable. Bladder: No abnormal wall thickening, accounting for underdistension. Pelvic lymph nodes: No pelvic adenopathy by size criteria. Bones: No aggressive osseous abnormality. Other: No significant ventral or inguinal hernia. IMPRESSION: 1. Unremarkable liver. 2. No findings which explain right upper quadrant pain Reviewed by: Christiano Tom MD on 07/20/2023 7:32 PM PST Approved by: Christiano Tom MD on 07/20/2023 7:32 PM PST Station ID: [id number]
[2023-07-20] MEDS ORDERED: oxyCODONE/ACET 5/325 Prepack 4 PO STA (19:55)
[2023-07-20 20:15] VITALS: BP 115/87; O2SAT 98
== END 2023-07-20 20:11 | disposition home or self-care (01) ==
LOC: ED 10:12
DX: R10.11 Right upper quadrant pain (principal); R10.13 Epigastric pain; R11.2 Nausea with vomiting, unspecified; Z79.899 Other long term (current) drug therapy
CPT/HCPCS: 36415; 74177; 76705; 80053; 81003; 81025; 83690; 85025; 96374; 96375; 96376; 99284; 99285; A9270; J1170; J2060; Q9967; 81001; 87086

== ENCOUNTER 2023-11-09 15:02 | Emergency (ER) | payer MEDICAID ==
--- NOTE | 2023-11-09 15:56 | ED Physician Documentation ---
PD HPI HEADACHE - Stated complaint Stated Complaint: MIRGRAINE,N/V - Chief complaint Chief Complaint: Neuro - History obtained from History obtained from: Patient - Additional information Additional information: 38-year-old woman with chronic recurrent migraines presents with her usual migraine headache. She says it started after getting Botox treatment a few days ago for migraine which is not unusual for her, often the Botox treatment makes her worse before she gets better. She denies fevers or neck stiffness. She is light sensitive. 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 CARE AIDE: Endometriosis : None HEENT: None Psych: Depression, Anxiety, ADD/ADHD, Post traumatic stress disorder Musculoskeletal: Osteoarthritis, Fibromyalgia Derm: None - Past Surgical History Past Surgical History: Yes General: Appendectomy /HOME CARE AIDE: Endometrial ablation, Other HEENT: Tonsil/Adenoidectomy - Present Medications Home Medications: Ambulatory Orders Medication Instructions Recorded Confirmed Pregabalin [Lyrica] 100 mg PO TID 02/09/16 01/07/23 Temazepam [Restoril] 1 tab PO DAILY 07/31/16 01/07/23 Magnesium 250 mg PO DAILY 06/21/17 01/07/23 Dextroamphetamine/Amphetamine 20 mg PO BID 12/08/21 01/07/23 [Adderall 10 mg Tablet] Melatonin 1 mg PO HS PRN 12/08/21 01/07/23 [place]-3/Dha/Epa/Fish Oil [Fish Oil 1 tab PO DAILY 12/08/21 01/07/23 1,000 mg Softgel] Zinc Citrate [Zinc] 1 tab PO DAILY 12/08/21 01/07/23 EPINEPHrine [Epinephrine] 0.3 mg IJ ONCE PRN #2 dis.syr 01/09/22 01/07/23 clonazePAM [Clonazepam] 1 mg PO BID PRN 01/09/22 01/07/23 Biotin 1,000 mcg PO DAILY 10/22/22 01/07/23 Bromelains [Bromelain] 500 mg PO DAILY 10/22/22 01/07/23 Cyanocobalamin (Vitamin B-12) 1,000 mcg PO DAILY 10/22/22 01/07/23 [Vitamin B-12] Diclofenac Sodium 1% Gel [Voltaren 1 applic TOP DAILY PRN 10/22/22 01/07/23 Gel] HYDROmorphone [Dilaudid] 2 mg PO Q6H PRN #20 tablet 10/22/22 01/07/23 Lidocaine Patch 5% [Lidoderm Patch] 1 each TOP DAILY PRN 10/22/22 01/07/23 Meclizine [Antivert] 25 mg PO Q6H PRN 10/22/22 01/07/23 Meloxicam, Submicronized 15 mg PO DAILY PRN 10/22/22 01/07/23 [Meloxicam] Prochlorperazine Supp [Compazine 25 mg [place] BID PRN #14 supp 01/07/23 Supp] Sertraline [Zoloft] 50 mg ORAL DAILY 01/07/23 01/07/23 Ondansetron HCl 4 mg PO Q6H PRN #20 tablet 07/20/23 oxyCODONE [Roxicodone] 5 mg PO Q4-6H PRN #15 tablet 07/20/23 Oxycodone HCl 10 mg PO Q6H PRN #2 tablet 11/09/23 - Allergies Allergies/Adverse Reactions: Allergies Allergy/AdvReac Type Severity Reaction Status Date / Time ondansetron Allergy Severe Anaphylaxis Verified 11/09/23 15:08 sumatriptan succinate * Allergy Severe anaphylaxis Verified 11/09/23 15:08 [From Imitrex] vancomycin Allergy Severe nicolette Verified 11/09/23 15:08 syndrome adhesive tape Allergy Intermediate Hives Verified 11/09/23 15:08 doxycycline Allergy Unknown Unknown Verified 11/09/23 15:08 divalproex sodium Allergy Anaphylaxis Verified 11/09/23 15:08 [From Depakote] nortriptyline Allergy Anaphylaxis Verified 11/09/23 15:08 prochlorperazine Allergy Anaphylaxis Verified 11/09/23 15:08 [From Compazine] promethazine Allergy Anaphylaxis Verified 11/09/23 15:08 rimegepant Allergy Anaphylaxis Verified 11/09/23 15:08 Antihistamines - Alkylamine AdvReac Severe severe Verified 11/09/23 15:08 anxiety, wheezing, dizziness prednisone AdvReac Severe Hallucinati Verified 11/09/23 15:08 ons diphenhydramine HCl * AdvReac Unknown Unknown Verified 11/09/23 15:08 [From Benadryl] pentosan polysulfate sodium AdvReac Unknown Verified 11/09/23 15:08 [From Elmiron] - Social History Does the pt smoke?: No Smoking Status: Never smoker Does the pt drink ETOH?: No Does the pt have substance abuse?: Yes - Immunizations Immunizations are current?: Yes - POLST Patient has POLST: No PD ED PE NORMAL - Vitals Vital signs reviewed: Yes - General General: Alert and oriented X 3, Other (Uncomfortable and photophobic) - HEENT HEENT: PERRL - Neck Neck: Supple, no meningeal sign - Neuro Neuro: Alert and oriented X 3, hadoop application developer 2-12 intact Eye Opening: Spontaneous Motor: Obeys Commands Verbal: Oriented GCS Score: 15 - Psych Psych: Normal mood, Normal affect Results - Vitals Vitals: Vital Signs - 24 hr 11/09/23 11/09/23 15:08 17:26 Temperature 36.2 C L Heart Rate 92 67 Respiratory 20 15 Rate Blood Pressure 114/77 111/71 O2 Saturation 98 100 Oxygen O2 Source Room air PD Medical Decision Making - ED course ED course: The headache is gradual in onset and similar to prior headaches. As such I doubt subarachnoid hemorrhage. There are no infectious symptoms such as fever or stiff neck to make me suspect meningitis. No carbon monoxide exposure by history. After initial evaluation ordered her "routine" migraine cocktail as recommended by her neurologist which includes hydromorphone, 2 mg IV, ketorolac, lorazepam 0.5 mg IV, a liter of fluid and 8 mg of IV ondansetron. Note that she has a listed allergy to ondansetron, but it is only to the ODT formula. Not much relief was obtained with this and she was remedicated with 1 mg of Dilaudid and 1 mg of Ativan. She was stating she was having a lot of anxiety due to a recent in the family. Subsequently she was feeling somewhat better and requested discharge. Departure - Departure Disposition: 01 Home, Self Care Clinical Impression: Complicated migraine Condition: Good Record reviewed to determine appropriate education?: Yes Instructions: ED Headache Migraine Prescriptions: Oxycodone HCl 10 mg PO Q6H PRN #2 tablet PRN Reason: pain Comments: You were seen today for your migraine, I did send a prescription for 2 oxycodone to [facility] in [place]. Return for new or worsening symptoms. Do not drink or drive today. I am prescribing a short course of narcotic pain medication for you. These are potentially dangerous and addictive medications that should be used carefully. These medications may constipate you. Take an dont-hau-zknihfl stool softener (docusate) twice daily with plenty of water while taking these medications. If you go 24 hours without a bowel movement, take [id number] miralax, per package instructions. Do not drink or drive while taking these medications. If you received narcotic or sedating medications while in the emergency department, do not drive for 24 hours. Store this medication in a safe, secure place and out of reach of children. It is a violation of federal law to give or sell this medication to another person or to use in a manner other than prescribed. The ED will not refill narcotic prescriptions, including prescriptions lost or stolen. To dispose of unwanted medications: 1. [facility] provides a drop box for medication in pill form only (no liquids) 8:00 am to 4:30 p.m. Sunday-Sunday in the lobby of the [facility], [address] [place] [address]. Empty pills into ziplock bag before disposal. Call [phone] for information. 2.[employer] is a free service available to all [facility] residents. Go to [email or web address]/ Note that many narcotic pain relievers also contain Tylenol/acetaminophen. Please ensure that your total dose of acetaminophen from all sources does not exceed 3 g (3000 mg) per day. Forms: PCP List
[2023-11-09] MEDS: SODIUM CHLORIDE 0.9% 1,000 ML IV STA (16:19)
[2023-11-09] MEDS: HYDROmorphone 1 MG/ML CARPUJECT IVP STA ×2 (16:22→16:57)
[2023-11-09] MEDS: KETOROLAC 30 MG/ML VIAL IVP STA (16:22)
[2023-11-09] MEDS: ONDANSETRON 4 MG/2 ML VIAL IVP STA ×2 (16:23→16:35)
[2023-11-09] MEDS: LORazepam 2 MG/ML VIAL IVP STA ×2 (16:24→16:56)
[2023-11-09 17:32] VITALS: BP 111/71; O2SAT 100
== END 2023-11-09 17:48 | disposition home or self-care (01) ==
LOC: ED 15:02
DX: G43.109 Migraine with aura, not intractable, without status migrainosus (principal)
CPT/HCPCS: 96374; 96375; 96376; 99283; 99284; J1170; J2060

== ENCOUNTER 2024-03-18 08:29 | Emergency (ER) | payer MEDICAID ==
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
[2024-03-18 09:20] LABS: BASOPHILS % (AUTO) 0.4 %; EOSINOPHILS # (AUTO) 0.1 10^3/uL (0.0-0.7); EOSINOPHILS % (AUTO) 1.4 %; HCT - HEMATOCRIT 40.2 % (37.0-47.0); HGB - HEMOGLOBIN 13.2 g/dL (12.0-16.0); LYMPHOCYTES # (AUTO) 2.6 10^3/uL (1.5-3.5); LYMPHOCYTES % (AUTO) 36.1 %; MEAN CORPUSCULAR HEMOGLOBIN 28.3 pg (27.0-31.0); MEAN CORPUSCULAR HGB CONC 32.8 g/dL (32.0-36.0); MEAN CORPUSCULAR VOLUME 86.3 fL (81.0-99.0); MEAN PLATELET VOLUME 11.1 fL (7.9-10.8); MONOCYTES # (AUTO) 0.6 10^3/uL (0.0-1.0); MONOCYTES % (AUTO) 8.4 %; NEUTROPHILS # (AUTO) 3.8 10^3/uL (1.5-6.6); NEUTROPHILS % (AUTO) 53.6 %; PLT - PLATELET COUNT 248 10^3/uL (130-450); RED BLOOD COUNT 4.66 10^6/uL (4.20-5.40); RED CELL DISTRIBUTION WIDTH 12.5 % (12.0-15.0); WHITE BLOOD COUNT 7.1 x10^3/uL (4.8-10.8)
[2024-03-18 09:32] LABS: ALBUMIN 4.5 g/dL (3.2-5.5); ALBUMIN/GLOBULIN RATIO 1.5 (1.0-2.2); ALKALINE PHOSPHATASE 78 IU/L (42-121); ALT ALANINE AMINOTRANSFERASE 19 IU/L (10-60); AST ASPARTATE AMINOTRANSFERASE 17 IU/L (10-42); BILIRUBIN,TOTAL 0.6 mg/dL (0.2-1.0); BUN - BLOOD UREA NITROGEN 18 mg/dL (6-20); CALCIUM 9.6 mg/dL (8.5-10.3); CARBON DIOXIDE - CO2 21 mmol/L (21-32); CHLORIDE 106 mmol/L (101-111); CREATININE 0.6 mg/dL (0.6-1.3); GFR - MDRD 113 (>89); GLUCOSE 89 mg/dL (74-104); LIPASE 50 U/L (11-82); POTASSIUM 4.1 mmol/L (3.5-4.5); SODIUM 134 mmol/L (135-145); TOTAL PROTEIN 7.6 g/dL (6.4-8.9)
[2024-03-18 09:39] LABS: TROPONIN I HIGH SENSITIVITY < 2.3 ng/L (2.3-14.8)
[2024-03-18] MEDS: KETOROLAC 15 MG/ML VIAL IVP STA (10:05)
[2024-03-18] MEDS: SODIUM CHLORIDE 0.9% 1,000 ML IV STA (10:05)
[2024-03-18] MEDS: HYDROmorphone 1 MG/ML CARPUJECT IVP STA ×2 (10:06→11:55)
[2024-03-18] MEDS: ONDANSETRON 4 MG/2 ML VIAL IVP STA (10:06)
--- NOTE | 2024-03-18 10:18 | XRAY Report ---
PROCEDURE: Chest 1V INDICATIONS: Chest pain TECHNIQUE: One view of the chest was acquired. COMPARISON: 02/18/24 FINDINGS: Surgical changes and devices: None. Lungs and pleura: No pleural effusions or pneumothorax. Lungs are clear. Mediastinum: Mediastinal contours appear normal. Heart size is normal. Bones and chest wall: No suspicious bony lesions. Overlying soft tissues appear unremarkable. IMPRESSION: No acute cardiopulmonary process. Reviewed by: Robbie Moya MD on 03/18/2024 10:16 AM PDT Approved by: Robbie Moya MD on 03/18/2024 10:16 AM PDT Station ID: [id number]
[2024-03-18 11:07] LABS: BILIRUBIN,URINE NEGATIVE (NEGATIVE); GLUCOSE, URINE (UA) NEGATIVE (NEGATIVE); KETONES,URINE (UA) NEGATIVE (NEGATIVE); LEUKOCYTE ESTERASE, URINE TRACE (NEGATIVE); NITRITE,URINE NEGATIVE (NEGATIVE); OCCULT BLOOD,URINE NEGATIVE (NEGATIVE); PROTEIN,URINE NEGATIVE (NEGATIVE); UROBILINOGEN,URINE 0.2 (NORMAL) E.U./dL (NORMAL)
[2024-03-18 11:08] LABS: CLARITY,URINE CLEAR (CLEAR)
[2024-03-18 11:10] LABS: HCG UR QUAL NEGATIVE
[2024-03-18 11:22] LABS: B. PARAPERTUSSIS- RESP PCR PAN NOT DETECTED; B. PERTUSSIS- RESP PCR PANEL NOT DETECTED; C. PNEUMONIAE- RESP PCR PANEL NOT DETECTED; CORONAVIRUS 229E-RESP PCR NOT DETECTED; CORONAVIRUS HKU1-RESP PCR NOT DETECTED; CORONAVIRUS NL63-RESP PCR NOT DETECTED; CORONAVIRUS OC43-RESP PCR NOT DETECTED; HUMAN METAPNEUMOVIRUS NOT DETECTED; INFLUENZA A- RESP PCR PANEL NOT DETECTED; INFLUENZA B - RESP PCR PANEL NOT DETECTED; M. PNEUMONIAE- RESP PCR PANEL NOT DETECTED; PARAINFLUENZA VIRUS 1 NOT DETECTED; PARAINFLUENZA VIRUS 2 NOT DETECTED; PARAINFLUENZA VIRUS 3 NOT DETECTED; PARAINFLUENZA VIRUS 4 NOT DETECTED; RHINOVIRUS/ENTEROVIRUS NOT DETECTED; RSV- RESP PCR PANEL NOT DETECTED; SARS-CoV-2 -RESP PCR PANEL NOT DETECTED
[2024-03-18 11:22] LABS: BACTERIA,URINE Few /HPF (None Seen); RBC,URINE 0-5 /HPF (0-5); SQUAMOUS EPITHELIAL CELL,UR FEW Squamous (<= Few); WBC,URINE 0-3 /HPF (0-5)
[2024-03-18 12:19] VITALS: BP 117/85; O2SAT 100
--- NOTE | 2024-03-18 17:36 | ED Physician Documentation ---
ED Addendum - Addendum Addendum: 03/18/24 17:36 The patient called stating that she cannot take Tylenol, therefore the prescription written by Dr. Terry was counseled and plain oxycodone was sent to the pharmacy for her.
== END 2024-03-18 12:20 | disposition home or self-care (01) ==
LOC: ED 08:29
DX: R10.10 Upper abdominal pain, unspecified (principal); R00.2 Palpitations; R07.9 Chest pain, unspecified; G43.909 Migraine, unspecified, not intractable, without status migrainosus; T76.21XA Adult sexual abuse, suspected, initial encounter; T76.11XA Adult physical abuse, suspected, initial encounter; Y04.8XXA Assault by other bodily force, initial encounter; Z59.86 Financial insecurity
CPT/HCPCS: 36415; 71045; 80053; 81001; 81025; 83690; 83735; 84484; 85025; 87086; 87633; 93005; 96374; 96375; 96376; 99283; 99284; J1170; 81003

== ENCOUNTER 2024-03-31 14:20 | Emergency (ER) | payer MEDICAID ==
[2024-03-31 15:05] LABS: BASOPHILS % (AUTO) 0.6 %; EOSINOPHILS # (AUTO) 0.1 10^3/uL (0.0-0.7); EOSINOPHILS % (AUTO) 0.7 %; HCT - HEMATOCRIT 42.5 % (37.0-47.0); HGB - HEMOGLOBIN 13.8 g/dL (12.0-16.0); LYMPHOCYTES # (AUTO) 2.5 10^3/uL (1.5-3.5); LYMPHOCYTES % (AUTO) 37.9 %; MEAN CORPUSCULAR HEMOGLOBIN 28.4 pg (27.0-31.0); MEAN CORPUSCULAR HGB CONC 32.5 g/dL (32.0-36.0); MEAN CORPUSCULAR VOLUME 87.4 fL (81.0-99.0); MEAN PLATELET VOLUME 11.2 fL (7.9-10.8); MONOCYTES # (AUTO) 0.3 10^3/uL (0.0-1.0); MONOCYTES % (AUTO) 4.2 %; NEUTROPHILS # (AUTO) 3.8 10^3/uL (1.5-6.6); NEUTROPHILS % (AUTO) 56.6 %; PLT - PLATELET COUNT 221 10^3/uL (130-450); RED BLOOD COUNT 4.86 10^6/uL (4.20-5.40); RED CELL DISTRIBUTION WIDTH 12.3 % (12.0-15.0); WHITE BLOOD COUNT 6.7 x10^3/uL (4.8-10.8)
--- NOTE | 2024-03-31 15:20 | XRAY Report ---
PROCEDURE: Chest 1V INDICATIONS: Chest pain TECHNIQUE: One view of the chest was acquired. COMPARISON: 03/18/2024, 02/18/2024 FINDINGS: Surgical changes and devices: None. Lungs and pleura: No pleural effusions or pneumothorax. Lungs are clear. Mediastinum: Mediastinal contours appear normal. Heart size is normal. Bones and chest wall: No suspicious bony lesions. Overlying soft tissues appear unremarkable. IMPRESSION: Unremarkable chest plain films, similar to priors. Reviewed by: Rian Ross MD on 03/31/2024 2:18 PM AKDT Approved by: Rian Ross MD on 03/31/2024 2:18 PM AKDT Station ID: [id number]
[2024-03-31 15:23] LABS: ALBUMIN 4.4 g/dL (3.2-5.5); ALBUMIN/GLOBULIN RATIO 1.4 (1.0-2.2); ALKALINE PHOSPHATASE 71 IU/L (42-121); ALT ALANINE AMINOTRANSFERASE 16 IU/L (10-60); AST ASPARTATE AMINOTRANSFERASE 17 IU/L (10-42); BILIRUBIN,TOTAL 0.3 mg/dL (0.2-1.0); BUN - BLOOD UREA NITROGEN 18 mg/dL (6-20); CALCIUM 9.4 mg/dL (8.5-10.3); CARBON DIOXIDE - CO2 20 mmol/L (21-32); CHLORIDE 109 mmol/L (101-111); CREATININE 0.6 mg/dL (0.6-1.3); GFR - MDRD 113 (>89); GLUCOSE 147 mg/dL (74-104); LIPASE 48 U/L (11-82); POTASSIUM 3.6 mmol/L (3.5-4.5); SODIUM 136 mmol/L (135-145); TOTAL PROTEIN 7.5 g/dL (6.4-8.9)
[2024-03-31 15:27] LABS: TROPONIN I HIGH SENSITIVITY < 2.3 ng/L (2.3-14.8)
[2024-03-31] MEDS ORDERED: iohexoL-300 100 ML VIAL ONE (18:31)
--- NOTE | 2024-03-31 18:38 | ED Physician Documentation ---
History of Present Illness - Stated complaint Stated Complaint: HBP,CHEST PX,VISION GREYING OUT - Chief complaint Chief Complaint: Cardiac - History obtained from History obtained from: Patient - Additonal information Additional information: 38-year-old female presents with a long list of issues. She is being seen by her neurologist, has a referral to cardiology in May and has an appoint with her PCP in 2 days. She states that for the past month she has had intermittent chest pain that radiates to the left arm. Wore a Zio patch and was found to have frequent PVCs. She states that her blood pressure is often low but sometimes it elevates as well. She states her usual blood pressures around 90 systolic, she states that it might go up to 120 or 130. She states that she talked to the clinic nurse who told her she might have a stroke and come to the emergency department. She does not have any new symptoms today. She states that she is being evaluated for POTS, was told to take salt tablets but states that because it took her blood pressure too high she stopped the use. She states she cannot take propranolol because of her low blood pressure. She also has occasional epigastric abdominal pain. Has occasional headaches as well. She does have a history of migraines but states that these headaches feel like something is "squishing her eyeballs from the top". She currently is asymptomatic. PD PAST MEDICAL HISTORY - Past Medical History Cardiovascular: None Respiratory: None Neuro: TIA, Headaches, Migraines Endocrine/Autoimmune: None GI: None ETL CONSULTANT: Endometriosis : None HEENT: None Psych: Depression, Anxiety, ADD/ADHD, Post traumatic stress disorder Musculoskeletal: Osteoarthritis, Fibromyalgia Derm: None - Past Surgical History Past Surgical History: Yes General: Appendectomy /ETL CONSULTANT: Endometrial ablation, Other HEENT: Tonsil/Adenoidectomy - Present Medications Home Medications: Ambulatory Orders Medication Instructions Recorded Confirmed Pregabalin [Lyrica] 100 mg PO TID 02/09/16 02/18/24 Temazepam [Restoril] 1 tab PO DAILY 07/31/16 02/18/24 Magnesium 250 mg PO DAILY 06/21/17 02/18/24 Dextroamphetamine/Amphetamine 20 mg PO BID 12/08/21 02/18/24 [Adderall 10 mg Tablet] Melatonin 1 mg PO HS PRN 12/08/21 02/18/24 [place]-3/Dha/Epa/Fish Oil [Fish Oil 1 tab PO DAILY 12/08/21 02/18/24 1,000 mg Softgel] Zinc Citrate [Zinc] 1 tab PO DAILY 12/08/21 02/18/24 EPINEPHrine [Epinephrine] 0.3 mg IJ ONCE PRN #2 dis.syr 01/09/22 02/18/24 clonazePAM [Clonazepam] 1 mg PO BID PRN 01/09/22 02/18/24 Biotin 1,000 mcg PO DAILY 10/22/22 02/18/24 Bromelains [Bromelain] 500 mg PO DAILY 10/22/22 02/18/24 Cyanocobalamin (Vitamin B-12) 1,000 mcg PO DAILY 10/22/22 02/18/24 [Vitamin B-12] Diclofenac Sodium 1% Gel [Voltaren 1 applic TOP DAILY PRN 10/22/22 02/18/24 Gel] HYDROmorphone [Dilaudid] 2 mg PO Q6H PRN #20 tablet 10/22/22 02/18/24 Lidocaine Patch 5% [Lidoderm Patch] 1 each TOP DAILY PRN 10/22/22 02/18/24 Meclizine [Antivert] 25 mg PO Q6H PRN 10/22/22 02/18/24 Meloxicam, Submicronized 15 mg PO DAILY PRN 10/22/22 02/18/24 [Meloxicam] Prochlorperazine Supp [Compazine 25 mg SD BID PRN #14 supp 01/07/23 02/18/24 Supp] Sertraline [Zoloft] 50 mg ORAL DAILY 01/07/23 02/18/24 Ondansetron HCl 4 mg PO Q6H PRN #20 tablet 07/20/23 02/18/24 oxyCODONE [Roxicodone] 5 mg PO Q4-6H PRN #15 tablet 07/20/23 02/18/24 Oxycodone HCl 10 mg PO Q6H PRN #2 tablet 11/09/23 02/18/24 Propranolol ER [Inderal LA] 80 mg PO DAILY #30 cap 02/18/24 oxyCODONE [Roxicodone] 5 mg PO Q6H PRN #14 tablet MDD 6 03/18/24 - Allergies Allergies/Adverse Reactions: Allergies Allergy/AdvReac Type Severity Reaction Status Date / Time ondansetron Allergy Severe Anaphylaxis Verified 03/31/24 14:31 sumatriptan succinate * Allergy Severe anaphylaxis Verified 03/31/24 14:31 [From Imitrex] vancomycin Allergy Severe nicolette Verified 03/31/24 14:31 syndrome adhesive tape Allergy Intermediate Hives Verified 03/31/24 14:31 doxycycline Allergy Unknown Unknown Verified 03/31/24 14:31 divalproex sodium Allergy Anaphylaxis Verified 03/31/24 14:31 [From Depakote] nortriptyline Allergy Anaphylaxis Verified 03/31/24 14:31 prochlorperazine Allergy Anaphylaxis Verified 03/31/24 14:31 [From Compazine] promethazine Allergy Anaphylaxis Verified 03/31/24 14:31 rimegepant Allergy Anaphylaxis Verified 03/31/24 14:31 Antihistamines - Alkylamine AdvReac Severe severe Verified 03/31/24 14:31 anxiety, wheezing, dizziness prednisone AdvReac Severe Hallucinati Verified 03/31/24 14:31 ons diphenhydramine HCl * AdvReac Unknown Unknown Verified 03/31/24 14:31 [From Benadryl] pentosan polysulfate sodium AdvReac Unknown Verified 03/31/24 14:31 [From Elmiron] - Social History Does the pt smoke?: No Smoking Status: Never smoker Does the pt drink ETOH?: No Does the pt have substance abuse?: Yes - Immunizations Immunizations are current?: Yes - POLST Patient has POLST: No PD ED PE NORMAL - Vitals Vital signs reviewed: Yes - General General: Alert and oriented X 3, No acute distress - HEENT HEENT: PERRL, Moist mucous membranes - Neck Neck: Supple, no meningeal sign - Cardiac Cardiac: RRR, No murmur, Strong equal pulses - Respiratory Respiratory: No respiratory distress, Clear bilaterally - Abdomen Abdomen: Soft, Non tender, Non distended - Back Back: No spinal TTP - Derm Derm: Warm and dry - Extremities Extremities: No calf tenderness / cord - Neuro Neuro: Alert and oriented X 3, bee farmer 2-12 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, No motor deficit, No sensory deficit, Normal speech Eye Opening: Spontaneous Motor: Obeys Commands Verbal: Oriented GCS Score: 15 - Psych Psych: Normal mood, Normal affect Results - Vitals Vitals: Vital Signs - 24 hr 03/31/24 03/31/24 03/31/24 14:25 18:28 18:34 Temperature 37.2 C Heart Rate 123 H 99 Respiratory 20 24 Rate Blood Pressure 104/76 119/89 H Blood Pressure 102/76 [Left] O2 Saturation 100 100 Oxygen O2 Source Room air - Labs Labs: Laboratory Tests 03/31/24 03/31/24 15:01 15:01 WBC 6.7 RBC 4.86 Hgb 13.8 Hct 42.5 MCV 87.4 MCH 28.4 MCHC 32.5 RDW 12.3 Plt Count 221 MPV 11.2 H Neut # (Auto) 3.8 Lymph # (Auto) 2.5 [place] # (Auto) 0.3 Eos # (Auto) 0.1 Baso # (Auto) 0.0 Absolute Nucleated RBC 0.00 Nucleated RBC % 0.0 Sodium 136 Potassium 3.6 Chloride 109 Carbon Dioxide 20 L Anion Gap 7.0 BUN 18 Creatinine 0.6 Estimated GFR (MDRD) 113 Glucose 147 H Calcium 9.4 Total Bilirubin 0.3 AST 17 ALT 16 Alkaline Phosphatase 71 Troponin I High Sens < 2.3 L Total Protein 7.5 Albumin 4.4 Globulin 3.1 Albumin/Globulin Ratio 1.4 Lipase 48 PD Medical Decision Making - ED course Complexity details: reviewed results, re-evaluated patient, considered differential, d/w patient ED course: 38-year-old female with multiple symptoms, no acute findings on laboratory testing. High sensitive troponin is negative. CT pulmonary angiogram does not show any evidence of pulmonary embolus. No evidence of vascular abnormality. She did request a dose of Dilaudid and Ativan here. This was given. She was given 2 L of IV fluid. Heart rate decreased and blood pressure increased. Patient is well-appearing, nontoxic. Afebrile. We will have her follow-up with her doctor for further care. Patient counseled regarding signs and symptoms for which I believe and urgent re-evaluation would be necessary. Patient with good understanding of and agreement to plan and is comfortable going home at this time This document was made in part using voice recognition software. While efforts are made to proofread this document, sound alike and grammatical errors may occur. Departure - Departure Disposition: 01 Home, Self Care Clinical Impression: Palpitations Chest pain Qualifiers: Chest pain type: unspecified Qualified Code(s): R07.9 - Chest pain, unspecified Headache Qualifiers: Headache type: unspecified Headache chronicity pattern: acute headache Intractability: not intractable Qualified Code(s): R51.9 - Headache, unspecified Condition: Good Instructions: ED Chest Pain Atypical Unkn Cause Follow-Up: TY GOEL MD [Primary Care Provider] - Within 3 Days Comments: As we discussed your CT pulmonary angiogram of your chest along with your laboratory testing does not show any acute abnormalities today. Your vasculature does not show any acute abnormalities. Your blood pressure improved with IV fluids, your heart rate has come down to the 70s and 80s. It is recommended you follow-up with your doctor on as scheduled to discuss next steps and to see if they can get you into cardiology sooner. Forms: PCP List
[2024-03-31] MEDS: SODIUM CHLORIDE 0.9% 2,000 ML IV STA (20:35)
[2024-03-31] MEDS: KETOROLAC 30 MG/ML VIAL IVP STA (20:56)
[2024-03-31] MEDS: iohexoL-300 100 ML VIAL IVP ONE (21:17)
--- NOTE | 2024-03-31 21:29 | CT Report ---
PROCEDURE: Angio Chest INDICATIONS: chest pain, hemoptysis CONTRAST: Omni 300, 80mos TECHNIQUE: After the administration of intravenous contrast, 2 mm axial images were acquired from the pulmonary apices to the posterior costophrenic angles during the arterial phase. In addition, 1 mm lung kernel and 5 mm soft tissue kernel reconstructions were performed. 3-dimensional coronal oblique maximum int ensity projection (MIP) reformats, 8 mm axial MIP, and 5 mm coronal and sagittal MPR reformats were t hen performed through the thorax. For radiation dose reduction, the following was used: automated exp osure control, adjustment of mA and/or kV according to patient size. COMPARISON: Same day chest radiograph FINDINGS: Image quality: Excellent. Large vessels: No filling defects within the opacified pulmonary arteries, accounting for motion and contrast timing. No evidence of acute aortic syndrome or aortic aneurysm. Lungs and pleura: No consolidation. No pleural effusions. No pneumothorax. No suspicious pulmonary n odules which require follow up. Mediastinum: Heart size is normal. No pericardial effusion. No large vessel abnormality. No mediastin al adenopathy by size criteria. Chest wall and lower neck: Thyroid is unremarkable. No axillary or supraclavicular adenopathy by size . Bones: No aggressive osseous abnormality. Upper Abdomen: Unremarkable. IMPRESSION: No pulmonary embolus. Reviewed by: Robbie Moya MD on 03/31/2024 9:27 PM PDT Approved by: Robbie Moya MD on 03/31/2024 9:27 PM PDT Station ID: [id number]
[2024-03-31] MEDS: LORazepam 2 MG/ML VIAL IVP STA (22:01)
[2024-03-31] MEDS: HYDROmorphone 1 MG/ML CARPUJECT IVP STA (22:01)
[2024-03-31 22:14] VITALS: BP 148/98; O2SAT 98
== END 2024-03-31 22:27 | disposition home or self-care (01) ==
LOC: ED 14:20
DX: R00.2 Palpitations (principal); R07.9 Chest pain, unspecified; R51.9 Headache, unspecified; Z79.899 Other long term (current) drug therapy
CPT/HCPCS: 36415; 71045; 71275; 80053; 83690; 84484; 85025; 93005; 96374; 96375; 99284; J1170; J2060; Q9967

== ENCOUNTER 2024-05-11 07:06 | Emergency (ER) | payer MEDICAID ==
--- NOTE | 2024-05-11 08:34 | ED Physician Documentation ---
PD HPI HEADACHE - Stated complaint Stated Complaint: N/V - Chief complaint Chief Complaint: Neuro - History obtained from History obtained from: Patient, Family - Additional information Additional information: 39-year-old woman with frequent migraines has had a persistent migraine for the last 5 days since having tilt table testing done. She has been vomiting and light sensitive. It is also exacerbated by being on her menses. Nothing atypical about it though, gradual in onset and typical for her headaches. No fevers or neck stiffness. 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: Endometriosis : None HEENT: None Psych: Depression, Anxiety, ADD/ADHD, Post traumatic stress disorder Musculoskeletal: Osteoarthritis, Fibromyalgia Derm: None - Past Surgical History Past Surgical History: Yes General: Appendectomy /HEALTH SCIENCE WRITER: Endometrial ablation, Other HEENT: Tonsil/Adenoidectomy - Present Medications Home Medications: Ambulatory Orders Medication Instructions Recorded Confirmed Pregabalin [Lyrica] 100 mg PO TID 02/09/16 02/18/24 Temazepam [Restoril] 1 tab PO DAILY 07/31/16 02/18/24 Magnesium 250 mg PO DAILY 06/21/17 02/18/24 Dextroamphetamine/Amphetamine 20 mg PO BID 12/08/21 02/18/24 [Adderall 10 mg Tablet] Melatonin 1 mg PO HS PRN 12/08/21 02/18/24 [place]-3/Dha/Epa/Fish Oil [Fish Oil 1 tab PO DAILY 12/08/21 02/18/24 1,000 mg Softgel] Zinc Citrate [Zinc] 1 tab PO DAILY 12/08/21 02/18/24 EPINEPHrine [Epinephrine] 0.3 mg IJ ONCE PRN #2 dis.syr 01/09/22 02/18/24 clonazePAM [Clonazepam] 1 mg PO BID PRN 01/09/22 02/18/24 Biotin 1,000 mcg PO DAILY 10/22/22 02/18/24 Bromelains [Bromelain] 500 mg PO DAILY 10/22/22 02/18/24 Cyanocobalamin (Vitamin B-12) 1,000 mcg PO DAILY 10/22/22 02/18/24 [Vitamin B-12] Diclofenac Sodium 1% Gel [Voltaren 1 applic TOP DAILY PRN 10/22/22 02/18/24 Gel] HYDROmorphone [Dilaudid] 2 mg PO Q6H PRN #20 tablet 10/22/22 02/18/24 Lidocaine Patch 5% [Lidoderm Patch] 1 each TOP DAILY PRN 10/22/22 02/18/24 Meclizine [Antivert] 25 mg PO Q6H PRN 10/22/22 02/18/24 Meloxicam, Submicronized 15 mg PO DAILY PRN 10/22/22 02/18/24 [Meloxicam] Prochlorperazine Supp [Compazine 25 mg RI BID PRN #14 supp 01/07/23 02/18/24 Supp] Sertraline [Zoloft] 50 mg ORAL DAILY 01/07/23 02/18/24 Ondansetron HCl 4 mg PO Q6H PRN #20 tablet 07/20/23 02/18/24 oxyCODONE [Roxicodone] 5 mg PO Q4-6H PRN #15 tablet 07/20/23 02/18/24 Oxycodone HCl 10 mg PO Q6H PRN #2 tablet 11/09/23 02/18/24 Propranolol ER [Inderal LA] 80 mg PO DAILY #30 cap 02/18/24 oxyCODONE [Roxicodone] 5 mg PO Q6H PRN #14 tablet MDD 6 03/18/24 - Allergies Allergies/Adverse Reactions: Allergies Allergy/AdvReac Type Severity Reaction Status Date / Time ondansetron Allergy Severe Anaphylaxis Verified 05/11/24 07:20 sumatriptan succinate * Allergy Severe anaphylaxis Verified 05/11/24 07:20 [From Imitrex] vancomycin Allergy Severe nicolette Verified 05/11/24 07:20 syndrome adhesive tape Allergy Intermediate Hives Verified 05/11/24 07:20 doxycycline Allergy Unknown Unknown Verified 05/11/24 07:20 divalproex sodium Allergy Anaphylaxis Verified 05/11/24 07:20 [From Depakote] nortriptyline Allergy Anaphylaxis Verified 05/11/24 07:20 prochlorperazine Allergy Anaphylaxis Verified 05/11/24 07:20 [From Compazine] promethazine Allergy Anaphylaxis Verified 05/11/24 07:20 rimegepant Allergy Anaphylaxis Verified 05/11/24 07:20 Antihistamines - Alkylamine AdvReac Severe severe Verified 05/11/24 07:20 anxiety, wheezing, dizziness prednisone AdvReac Severe Hallucinati Verified 05/11/24 07:20 ons diphenhydramine HCl * AdvReac Unknown Unknown Verified 05/11/24 07:20 [From Benadryl] pentosan polysulfate sodium AdvReac Unknown Verified 05/11/24 07:20 [From Elmiron] - Social History Does the pt smoke?: No Smoking Status: Never smoker Does the pt drink ETOH?: No Does the pt have substance abuse?: Yes - Immunizations Immunizations are current?: Yes - POLST Patient has POLST: No PD ED PE NORMAL - Vitals Vital signs reviewed: Yes - General General: Alert and oriented X 3, Other (Light sensitive and uncomfortable) - HEENT HEENT: PERRL, EOMI - Neck Neck: Supple, no meningeal sign - Neuro Neuro: Alert and oriented X 3, hvac engineer 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, No motor deficit, No sensory deficit, Normal speech Eye Opening: Spontaneous Motor: Obeys Commands Verbal: Oriented GCS Score: 15 Results - Vitals Vitals: Vital Signs - 24 hr 05/11/24 05/11/24 05/11/24 07:15 07:20 09:23 Temperature 36.7 C Heart Rate 113 H 78 71 Respiratory 17 15 16 Rate Blood Pressure 114/85 H 111/74 114/74 O2 Saturation 97 98 96 05/11/24 11:00 Temperature Heart Rate 60 Respiratory 15 Rate Blood Pressure 128/75 O2 Saturation 99 Oxygen O2 Source Room air PD Medical Decision Making - ED course ED course: 39-year-old woman with relatively frequent migraines presents for treatment of same. Nothing in the history or physical to suggest alternative etiology such as subarachnoid hemorrhage or meningitis. She was medicated as per her "routine" with 2 mg of Dilaudid, 1 mg 0.5 mg of lorazepam, 1 L of IV fluids and 8 mg of IV Zofran. Note she has a listed allergy to Zofran but that is only to the ODT formulation, she does fine with IV Zofran. On recheck at 920, she is feeling much better but still having some pain and requested Toradol which was ordered as well as she does get relief from oxygen and I put her on a facemask. On recheck at 10:37 PM her pain is definitely come down but still having a significant headache. We explored options noting multiple medication side effects and allergies and we will repeat the Toradol and also give her 2 g of magnesium sulfate. On reevaluation at 11:30 AM she is still getting slow improvements and we are repeating another dose of Dilaudid. At 12:30 PM on reevaluation she was feeling better and requested discharge. Departure - Departure Disposition: 01 Home, Self Care Clinical Impression: Migraine Condition: Good Record reviewed to determine appropriate education?: Yes Instructions: ED Headache Migraine Comments: Going forward you tolerated magnesium sulfate well so that could be added to your migraine cocktail. Call your doctor to arrange a follow-up appointment, make the next available appointment. In the interim, return anytime if worse or if new symptoms develop. Forms: PCP List
[2024-05-11] MEDS: HYDROmorphone 2 MG/ML VIAL IVP STA (08:47)
[2024-05-11] MEDS: LORazepam 2 MG/ML VIAL IVP STA (08:47)
[2024-05-11] MEDS: SODIUM CHLORIDE 0.9% 1,000 ML IV STA (08:48)
[2024-05-11] MEDS: ONDANSETRON 4 MG/2 ML VIAL IVP STA (08:48)
[2024-05-11] MEDS: KETOROLAC 15 MG/ML VIAL IVP STA ×2 (09:36→11:01)
[2024-05-11] MEDS: HYDROmorphone 1 MG/ML CARPUJECT IVP STA ×2 (10:06→12:05)
[2024-05-11] MEDS: MAGNESIUM SULFATE 2 GRAM 2 GM/50 ML BAG IV ONE (11:01)
[2024-05-11 12:47] VITALS: BP 116/71; O2SAT 99
== END 2024-05-11 12:50 | disposition home or self-care (01) ==
LOC: ED 07:06
DX: G43.909 Migraine, unspecified, not intractable, without status migrainosus (principal)
CPT/HCPCS: 96365; 96375; 96376; 99284; 99285; J1170; J2060